=== PATIENT | female | born 1975 | race Caucasian/White ===

== ENCOUNTER 2016-04-10 09:21 | Inpatient (IN) | payer OTHER, MEDICARE ==
[~2016-04-10] VITALS: Ht 165.1 cm; Wt 99.3 kg
[~2016-04-10 09:21] MED LIST: /DILT60TAB PO; /ESOM40CA; ADV500INH INH; ADVAIR; ASPI81TA85 PO; CALCIUM GLUCONATE; CENESTIN; ESTR1TAB PO; LIDO5DIS; LIPI20TA PO; LORTTAB2 PO; MUCI600T34 PO; MULTIVIT; PRED10TA2 PO; PRIL20CA PO; PROV90AE; SING5CHW PO; TOPI100T; TOPI50TA; TRAM50TA2; TYLE325T5 PO; VYTO10TA5; [UNRECOGNIZED DRUG - OTHER] PO
--- NOTE | 2016-04-10 10:24 | REP ---
CT Head without contrast HISTORY: Altered mental status COMPARISON: None There is no intraparenchymal hemorrhage, acute infarct, mass or midline shift. The ventricular system is normal in appearance. There is no extra cerebral collection. There is no fracture. The visualized sinuses are clear. IMPRESSION: There is no intracranial lesion. Signed by Marek Greene MD 04/10/2016 10:15 A
[2016-04-10 10:57] LABS: MEAN CORPUSCULAR HEMOGLOBIN 28.7 pg (27.0-33.0); MEAN CORPUSCULAR HGB CONC 34.3 g/dl (32.0-36.5); MEAN CORPUSCULAR VOLUME 83.5 fl (80.0-96.0); RED CELL DISTRIBUTION WIDTH 12.5 % (11.5-14.5); WHITE BLOOD COUNT 7.6 K/mm3 (4.0-10.0)
[2016-04-10 11:09] LABS: AMPHETAMINES LEVEL URINE NEGATIVE (NEGATIVE); BENZODIAZEPINES URINE NEGATIVE (NEGATIVE); COCAINE METABOLITE URINE NEGATIVE (NEGATIVE); CONTROL LINE INT CTR LINE PRESENT; METHADONE URINE NEGATIVE (NEGATIVE); OPIATES URINE POSITIVE (NEGATIVE); TRICYCLIC ANTIDEPRESS URINE NEGATIVE (NEGATIVE)
[2016-04-10 11:25] LABS: CONTROL LINE HCG INT CTR LINE PRESENT
[2016-04-10 11:39] LABS: ALBUMIN 3.2 GM/DL (3.2-5.2); ALBUMIN/GLOBULIN RATIO 0.91 (1.00-1.93); ALKALINE PHOSPHATASE 105 U/L (45-117); ALT/SGPT 34 U/L (12-78); ANION GAP 12 MEQ/L (8-16); AST/SGOT 17 U/L (15-37); BILIRUBIN,DIRECT 0.1 MG/DL (0.0-0.2); BILIRUBIN,TOTAL 0.5 MG/DL (0.2-1.0); BLOOD UREA NITROGEN 13 MG/DL (7-18); CALCIUM LEVEL 8.3 MG/DL (8.5-10.1); CARBON DIOXIDE LEVEL 27 MEQ/L (21-32); CHLORIDE LEVEL 106 MEQ/L (98-107); CREATININE FOR GFR 0.76 MG/DL (0.55-1.02); GLOMERULAR FILTRATION RATE > 60.0 (>58); GLUCOSE, FASTING 91 MG/DL (70-105); POTASSIUM SERUM 3.9 MEQ/L (3.5-5.1); SODIUM LEVEL 145 MEQ/L (136-145); TOTAL PROTEIN 6.7 GM/DL (6.4-8.2)
--- NOTE | 2016-04-10 13:48 | EDDOCDS ---
Physician Documentation [facility] Name: Renea Regalado Age: 40 yrs Sex: Female : 1975 Arrival Date: 04/10/2016 Time: 09:21 Bed [facility] Private MD: [facility] Disposition: 04/10/16 13:29 Hospitalization ordered by Sanna Campoverde for Inpatient Admission. Preliminary diagnosis is Major depressive disorder, recurrent, mild. - Bed requested for Admit. - Status is Inpatient Admission. mk4 - Condition is Stable. - Problem is an acute exacerbation. - Symptoms are unchanged. Historical: - Allergies: Amitriptyline (Rash); Percocet (Rash); - Home Meds: 1. Advair Diskus 500-50 mcg/dose Inhl dsdv 1 puff 2 times per day (Last dose: 04/09/2016) 2. Albuterol Inhl 3 mL every 4-6 hours prn 3. albuterol sulfate 90 mcg/actuation Inhl HFAA 2 puffs every 4-6 hours prn 4. aspirin 81 mg Oral tab 1 tab once daily (Last dose: 04/09/2016) 5. Flexeril 10 mg Oral tab 1 tab 3 times per day (Last dose: 04/09/2016) 6. Lipitor 80 mg Oral tab 1 tab once daily (Last dose: 04/09/2016) 7. lisinopril 5 mg Oral tab 1 tab once daily (Last dose: 04/09/2016) 8. metformin 500 mg Oral tab 1 tab Daily as needed 9. Mobic 15 mg oral tab 1 tab once daily (Last dose: 04/09/2016) 10. Seroquel 100 mg Oral tab daily stopped taking it yesterday (Last dose: 04/08/2016) 11. Wellbutrin 300 mg Oral 1 tab daily (Last dose: 04/08/2016) 12. Singulair 10 mg Oral tab 1 tab once daily - PMHx: Asthma; Diabetes - NIDDM: controlled; Headaches; Hypercholesterolemia; Hypertension; IBS; - PSHx: Hysterectomy; Cholecystectomy; - Social history: Smoking status: Patient states was never smoker of tobacco. No barriers to communication noted, The patient speaks fluent [place], Speaks appropriately for age. - Family history: Not pertinent. - : The pt / caregiver states he / she is not on anticoagulants. Home medication list is obtained from the patient, family members. - Exposure Risk Screening:: None identified. STRUCTURAL ARCHITECT: 04/10 09:47 LMP N/A - Hysterectomy srm Vital Signs: 09:22 BP 127 / 81; Pulse 84; Resp 18 S; Temp 98.1; Pulse Ox 98% on R/A; Weight 99.34 kg / dd6 219.01 lbs (R); Height 5 ft. 5 in. (165.10 cm) (R); 11:20 BP 164 / 84; Pulse 82; Resp 18; Temp 98; Pulse Ox 97% on R/A; mk4 09:22 Body Mass Index 36.44 (99.34 kg, 165.10 cm) dd6 11:20 pt crying mk4 MDM: 09:56 Consult PFS/PSA/Shift Mgr ordered. sd1 09:56 Consult PFS/PSA/Shift Mgr: Patient's case requires discussion with on-call sd1 Psychiatrist ordered. 09:56 PSA/PFS to call Nursing Construction Driver, to enter patient data on [place] Safe Act if patient sd1 involuntarily admitted or transferred for SI or HI ordered. 09:56 Confirm accurate psychiatric medication list and times of last dosage ordered. sd1 09:56 Detain Pt Until Medically/PFS Cleared ordered. sd1 09:57 Acetaminophen Level Ordered. EDMS 09:57 Basic Metabolic Profile Ordered. EDMS 09:57 Complete Blood Count Ordered. EDMS 09:57 Drug Eval Toxicology ED Only Ordered. EDMS 09:57 Ethyl Alcohol (ethanol) Ordered. EDMS 09:57 HCG,Serum Qualitative Ordered. EDMS 09:57 Liver Profile Ordered. EDMS 09:57 Salicylate Level Ordered. EDMS 09:57 Thyroid Stimulating Hormone Ordered. EDMS 09:58 CT Head Without Contrast Ordered. EDMS 10:48 Financial registration complete. pm4 10:48 Consult PFS/PSA/Shift Mgr complete. mk4 10:48 Consult PFS/PSA/Shift Mgr: Patient's case requires discussion with on-call [facility] Psychiatrist complete. 10:48 PSA/PFS to call Nursing Construction Driver, to enter patient data [place] Safe [place] if patient mk4 involuntarily admitted or transferred for SI or HI complete. 11:18 REGULAR DIET PLASTIC HURTADO+DIET ordered. EDMS 11:20 [facility] Payment Agreement was scanned into [employer] and attached to record. pm4 11:28 Drug Eval Toxicology ED Only Reviewed. sd1 11:28 Complete Blood Count Reviewed. sd1 11:28 HCG,Serum Qualitative Reviewed. sd1 11:28 CT Head Without Contrast Reviewed. sd1 12:14 Acetaminophen Level Reviewed. sd1 12:14 Basic Metabolic Profile Reviewed. sd1 12:14 Liver Profile Reviewed. sd1 12:14 Salicylate Level Reviewed. sd1 12:14 Ethyl Alcohol (ethanol) Reviewed. sd1 12:14 HCG,Serum Qualitative Reviewed. sd1 12:14 Thyroid Stimulating Hormone Reviewed. sd1 13:04 Admit to [facility]: ordered. EDMS 13:04 [facility] Legal paperwork was scanned into [employer] and attached to record. ml4 Signatures: Dispatcher [employer] EDIN Cindy Manrique MD MD sd1 Mayda Dumont, RN RN srm [place] [employer], PSA PSA ml4 María Chin RN RN mk4 Wero Shook, Reg Reg pm4 The chart was reviewed and I authenticate all verbal orders and agree with the evaluation and treatment provided.Attachments: 11:20 [facility] Payment Agreement pm4 MTDD
--- NOTE | 2016-04-10 13:48 | EDDOCDS ---
Nurse's Notes [facility] Name: Renea Regalado Age: 40 yrs Sex: Female : 1975 Arrival Date: 04/10/2016 Time: 09:21 Bed BHU1 Private MD: [facility] Diagnosis: Major depressive disorder, recurrent, mild Presentation: 04/10 09:42 Presenting complaint: Patient states: seen at her counselors today and sent there for [facility] blood work- started taking Seroquel and Wellbutrin a few weeks ago and now she is stuttering and having bad thoughts. pt states she is suicidal. Adult Sepsis Screening: The patient does not have new or worsening altered mentation. Patient's respiratory rate is less than 22. Systolic blood pressure is greater than 100. Patient has a qSOFA score of 0- Negative Sepsis Screen. Suicide/Homicide risk assessment- The patient admits to and/or has been reported to be having suicidal ideations. The patient reports that he/she has not been admitted to an inpatient mental health facility in the last 30 days. The patient reports that he/she does not have a recent or current history of substance abuse. The patient reports that he/she has no prior history of suicide attempt and/or organized plan. The patient reports that he/she has not experienced a significant life altering event in the last 30 days. The patient reports that he/she has adequate social support. Status: Patient is not a tire service technician or dependent. Transition of care: patient was received from [facility] counselor. 09:42 Acuity: EDY Level 3 [facility] 09:42 Method Of Arrival: Walkin/Carried/Asstd [facility] Triage Assessment: 09:47 General: Appears in no apparent distress, Behavior is appropriate for age, cooperative. srm Pain: Denies pain. HIV screening NA for this visit Offered previously. SAP BW BI DEVELOPER: 09:47 LMP N/A - Hysterectomy srm Historical: - Allergies: Amitriptyline (Rash); Percocet (Rash); - Home Meds: 1. Advair Diskus 500-50 mcg/dose Inhl dsdv 1 puff 2 times per day (Last dose: 04/09/2016) 2. Albuterol Inhl 3 mL every 4-6 hours prn 3. albuterol sulfate 90 mcg/actuation Inhl HFAA 2 puffs every 4-6 hours prn 4. aspirin 81 mg Oral tab 1 tab once daily (Last dose: 04/09/2016) 5. Flexeril 10 mg Oral tab 1 tab 3 times per day (Last dose: 04/09/2016) 6. Lipitor 80 mg Oral tab 1 tab once daily (Last dose: 04/09/2016) 7. lisinopril 5 mg Oral tab 1 tab once daily (Last dose: 04/09/2016) 8. metformin 500 mg Oral tab 1 tab Daily as needed 9. Mobic 15 mg oral tab 1 tab once daily (Last dose: 04/09/2016) 10. Seroquel 100 mg Oral tab daily stopped taking it yesterday (Last dose: 04/08/2016) 11. Wellbutrin 300 mg Oral 1 tab daily (Last dose: 04/08/2016) 12. Singulair 10 mg Oral tab 1 tab once daily - PMHx: Asthma; Diabetes - NIDDM: controlled; Headaches; Hypercholesterolemia; Hypertension; IBS; - PSHx: Hysterectomy; Cholecystectomy; - Social history: Smoking status: Patient states was never smoker of tobacco. No barriers to communication noted, The patient speaks fluent Malian, Speaks appropriately for age. - Family history: Not pertinent. - : The pt / caregiver states he / she is not on anticoagulants. Home medication list is obtained from the patient, family members. - Exposure Risk Screening:: None identified. Screenin:00 Screening information is obtained from the patient. Fall risk: No risks identified. mk4 Assistance ADL's: requires no assistance with activities of daily living. Abuse/DV Screen: The patient / caregiver reports he/she is: not in a situation that causes fear, pain or injury. Nutritional screening: On diabetic diet. Advance Directives: Currently, there is no health care proxy. There is no active DNR order. There is no living will. There is no Power of Machine Captain. Advance directive information has not previously been placed in an [facility] medical record. Further advance directive information is declined. home support is adequate. Referral is made to [facility]. Assessment: 10:00 General: Appears distressed, Behavior is crying. Pain: Denies pain. Neurological: Level mk4 of Consciousness is awake, alert. Respiratory: Airway is patent Respiratory effort is even, Respiratory pattern is hyperventilation. Referral is made to [facility]. 11:20 General: Appears in no apparent distress, comfortable, Behavior is anxious, cooperative.mk4 13:40 General: Appears distressed, Behavior is crying. General: Behavior is family member at 4 bedside ,pt tearful states she wantsto go home. Neurological: Level of Consciousness is awake, alert. Mental Health Eval: 11:29 Mental health consult is initiated at 11:00. Status: The patient is not a ml4 tire service technician or dependent. [facility] Behavioral Health: The patient is not an established patient of [facility] Behavioral Health. Referral Information: Evaluation referral is generated by the patient himself / herself. The patient was referred for evaluation because she was her appt with Sarai Mason(PNP) at [facility] and was directed to present to ED for blood work and Head CT. While at appt, pt admitted suffering from command AH to kill self and others due to recent medication increase(Seroquel, 50 mg to 100 mg), along with some side effects(stuttering and memory loss). [facility] Dukes did not contact [facility], pt presented to [facility] with . . Subjective: The patients chief complaint is pt states, "I'm just here for some blood work and a CT scan." Pt reports suffering from command AH to kill herself and others for the past 2 days. Pt claims the voices told her to jump into the ortiz 2 days ago but states, "I walked down to the water, but then turned around because I really didn't want to kill myself." Yesterday, she reports the voices told her to stab herself with a kitchen knife, however admits walking into the kitchen, but was able redirect the voices. In addition to Command AH to kill self, she reports having Command AH to kill others. Pt states, "I saw demons and aliens last night and they told me to go with them and kill people." Pt denies active SI and HI and states, "it's because of my medication change." States she has been on Wellbutrin(300 mg) for the past 3 months and her Seroquel was increased from 50 mg to 100 mg approximately 1 wk ago. Since the medication increase, she reports having memory loss and stuttering, along with command AH to kill self and others. Additionally, pt states, "I accidentally took 2 tablets of Seroquel 2 days ago, instead of one tablet only at night." Pt was directed to stop all medication due to the negative side effects. She is requesting to be discharged from [facility] and is able to contract for pt's safety and reports not leaving pt alone at home. . Delusions are denied. Patient's mood is anxious, hallucinations are Command AH to kill self and others, along with VH. Pt states, "I see aliens and demons at night time." . Mental Health history: depression, sleep disturbance, Mental Health Admissions: Ellie, approximately 30 years ago for suicidal thoughts Current Outpatient Mental Health Services: [facility]- Last seen today. . Current living environment is Family / Home Support: adequate The patient currently lives with his / her spouse, . The patient is . Patient presents to Emergency Department with the following symptoms within the past 2 weeks: agitation, anger, anxiety, depressed mood, auditory hallucinations stated by patient visual hallucinations, stated by patient SI and HI due to command AH. . poor concentration, poor impulse control, sleep disturbance - insomnia. Substance abuse: Pt denies. Mental status exam: Patients appearance is appropriate, Patient's behavior is cooperative, Affect is appropriate. Mood is anxious. Auditory Hallucinations are reported by the patient. Command hallucinations are reported by the patient. Visual Hallucinations are are reported by pt(as described above) . Appetite is normal. Memory is fair. Energy level is normal. Content of thought is normal. Thought process is intact. Cognitive level is oriented to person, place, time and situation Patient's insight is poor. Judgement is poor. Rapport with interviewer is good. Suicidal Ideation is not present. Homicidal ideation is not present. Speech is Stuttering . Disposition: Medically cleared for disposition by Cindy Manrique MD. Narrative: Awaiting psychiatric consult... 12:21 Disposition: Psychiatric Consult is performed by phone with Dr Yohan Montgomery. ml4 12:57 [facility] Admission Criteria: The patient is experiencing suicidal ideation. The patient ml4 requires continuous observation and/or control to protect self, others or property. The patient's care requires a multi-modal treatment plan under close supervision and coordination due to the complexity and severity of the patient's symptoms. The patient requires administration and monitoring of psychoactive medications by skilled medical providers due to the side effects of the psychoactive medications or significant dosage adjustments. Legal Status: Patient's legal status will be Emergency admission: 39. [place] Safe Act: [place] Safe Act is applicable to this patient. The patient poses a risk to self or other and the Nursing Emergency Room Technician has been notified. He/She will enter the patient's data. DSM-V Differential Diagnosis: Major Depressive Disorder unspecified (F33.9). Narrative: Notice of Status and Rights, FAQ, and Bill of Rights was given at bedside. Awaiting: transfer to [facility]. Vital Signs: 09:22 BP 127 / 81; Pulse 84; Resp 18 S; Temp 98.1; Pulse Ox 98% on R/A; Weight 99.34 kg (R); dd6 Height 5 ft. 5 in. (165.10 cm) (R); 11:20 BP 164 / 84; Pulse 82; Resp 18; Temp 98; Pulse Ox 97% on R/A; mk4 09:22 Body Mass Index 36.44 (99.34 kg, 165.10 cm) dd6 11:20 pt crying mk4 Vitals: 09:22 Log In Time: April 10, 2016 at 09:20. dd6 ED Course: 09:22 Patient visited by Micky Champagne PCA. dd6 09:22 [facility] is Private Physician. dd6 09:22 Patient moved to Waiting dd6 09:23 Patient moved to Pre RCE dd6 09:33 Triage Initiated mlb1 09:47 Amita Contreras,RN is Primary Nurse. srm 09:47 Patient moved to [facility] srm 10:00 The patient / caregiver is instructed regarding the plan of care and ED course. mk4 10:07 Patient visited by María Chin RN. mk4 10:16 Cindy Manrique MD is Attending Physician. sd1 10:26 Patient visited by Cindy Manrique MD. sd1 10:27 CT Head Without Contrast Returned. EDMS 10:39 Patient visited by Citlalli May PCA. jlf 10:40 Acetaminophen Level Sent. jlf 10:40 Basic Metabolic Profile Sent. jlf 10:40 Complete Blood Count Sent. jlf 10:40 Drug Eval Toxicology ED Only Sent. jlf 10:40 Ethyl Alcohol (ethanol) Sent. jlf 10:40 HCG,Serum Qualitative Sent. jlf 10:40 Liver Profile Sent. jlf 10:40 Thyroid Stimulating Hormone Sent. jlf 10:40 Salicylate Level Sent. jlf 10:59 Patient visited by Wero Avalos Security Aide. pjf 11:14 Patient visited by Belen Matthews. gr2 11:20 [facility] Payment Agreement was scanned into [employer] and attached to record. pm4 11:40 Patient visited by Belen Matthews. gr2 11:56 Patient visited by Belen Matthews. gr2 12:12 Patient visited by Belen Matthews. gr2 12:39 Patient visited by Belen Matthews. gr2 12:47 Primary Nurse role handed off by Amita Contreras,LLOYD mk4 13:04 E Legal paperwork was scanned into [employer] and attached to record. ml4 13:06 Patient visited by Belen Matthews. gr2 13:29 Sanna Campoverde is Hospitalizing Provider. sd1 13:31 Patient visited by Belen Matthews. gr2 13:42 No IV's were initiated during this patient's visit. No procedures done that require mk4 assistance. Attachments: 13:04 E Legal paperwork ml4 Order Results: Lab Order: Acetaminophen Level; SPEC'M 04/10/16 10:29 Test: ACETAMINOPHEN LEVEL; Value: < 2.0; Range: 10.0-30.0; Abnormal: Below low normal; Units: UG/ML; Status: F Lab Order: Basic Metabolic Profile; SPEC'M 04/10/16 10:29 Test: GLUCOSE, FASTING; Value: 91; Range: 70-105; Units: MG/DL; Status: F Test: BLOOD UREA NITROGEN; Value: 13; Range: 7-18; Units: MG/DL; Status: F Test: CREATININE FOR GFR; Value: 0.76; Range: 0.55-1.02; Units: MG/DL; Status: F Test: SODIUM LEVEL; Range: 136-145; Units: MEQ/L; Status: I Test: POTASSIUM SERUM; Range: 3.5-5.1; Units: MEQ/L; Status: I Test: CHLORIDE LEVEL; Range: 98-107; Units: MEQ/L; Status: I Test: CARBON DIOXIDE LEVEL; Range: 21-32; Units: MEQ/L; Status: I Test: ANION GAP; Range: 8-16; Units: MEQ/L; Status: I Test: CALCIUM LEVEL; Range: 8.5-10.1; Units: MG/DL; Status: I Test: GLOMERULAR FILTRATION RATE; Value: > 60.0; Range: >58; Status: F Test: SODIUM LEVEL; Value: 145; Range: 136-145; Units: MEQ/L; Status: F Test: POTASSIUM SERUM; Value: 3.9; Range: 3.5-5.1; Units: MEQ/L; Status: F Test: CHLORIDE LEVEL; Value: 106; Range: 98-107; Units: MEQ/L; Status: F Test: CARBON DIOXIDE LEVEL; Value: 27; Range: 21-32; Units: MEQ/L; Status: F Test: ANION GAP; Value: 12; Range: 8-16; Units: MEQ/L; Status: F Test: CALCIUM LEVEL; Value: 8.3; Range: 8.5-10.1; Abnormal: Below low normal; Units: MG/DL; Status: F Test Note: ; Units are mL/min/1.73 m2 Chronic Kidney Disease Staging per NKF: Stage I & II GFR >=60 Normal to Mildly Decreased Stage III GFR 30-59 Moderately Decreased Stage IV GFR 15-29 Severely Decreased Stage V GFR <15 Very Little GFR Left ESRD GFR <15 on SCIENTIFIC HELPER Lab Order: Complete Blood Count; SPEC'M 04/10/16 10:29 Test: WHITE BLOOD COUNT; Value: 7.6; Range: 4.0-10.0; Units: K/mm3; Status: F Test: RED BLOOD COUNT; Value: 4.74; Range: 4.00-5.40; Units: M/mm3; Status: F Test: HEMOGLOBIN; Value: 13.6; Range: 12.0-16.0; Units: g/dl; Status: F Test: HEMATOCRIT; Value: 39.6; Range: 36.0-47.0; Units: %; Status: F Test: MEAN CORPUSCULAR VOLUME; Value: 83.5; Range: 80.0-96.0; Units: fl; Status: F Test: MEAN CORPUSCULAR HEMOGLOBIN; Value: 28.7; Range: 27.0-33.0; Units: pg; Status: F Test: MEAN CORPUSCULAR HGB CONC; Value: 34.3; Range: 32.0-36.5; Units: g/dl; Status: F Test: RED CELL DISTRIBUTION WIDTH; Value: 12.5; Range: 11.5-14.5; Units: %; Status: F Test: PLATELET COUNT, AUTOMATED; Value: 287; Range: 150-450; Units: k/mm3; Status: F Lab Order: Drug Eval Toxicology ED Only; SPEC'M 04/10/16 10:29 Test: AMPHETAMINES LEVEL URINE; Value: NEGATIVE; Range: NEGATIVE; Status: F Test: BARBITURATES URINE; Value: NEGATIVE; Range: NEGATIVE; Status: F Test: BENZODIAZEPINES URINE; Value: NEGATIVE; Range: NEGATIVE; Status: F Test: CANNABINOIDS URINE; Value: NEGATIVE; Range: NEGATIVE; Status: F Test: COCAINE METABOLITE URINE; Value: NEGATIVE; Range: NEGATIVE; Status: F Test: METHADONE URINE; Value: NEGATIVE; Range: NEGATIVE; Status: F Test: OPIATES URINE; Value: POSITIVE; Range: NEGATIVE; Abnormal: Above high normal; Status: F Test: TRICYCLIC ANTIDEPRESS URINE; Value: NEGATIVE; Range: NEGATIVE; Status: F Test Note: ; ALL PRESUMPTIVE POSITIVE FINDINGS ARE UNCONFIRMED NORMAL VALUES THRESHOLD IN NG/ML AMPHETAMINES 1000 METHAMPHETAMINES 1000 BARBITURATES 300 BENZODIAZEPINES 300 CANNABINOIDS (THC) 50 COCAINE METABOLITE 300 METHADONE 300 OPIATES 300 PHENCYCLIDINE 25 TRICYCLIC ANTIDEPRESSANTS 1000 RESULTS ARE FOR MEDICAL PURPOSES ONLY. ALL URINE SPECIMENS WILL BE SAVED FOR 3 DAYS. IF CONFIRMATION OF A PRESUMPTIVE POSTIVE SCREEN RESULT IS DESIRED, CALL CHEMISTRY ([phone]) AND REQUEST URINE TO BE SENT TO REFERENCE LAB. FOR A LIST OF CLOSELY RELATED COMPOUNDS PLEASE CALL THE LAB. Lab Order: Ethyl Alcohol (ethanol); SPEC'M 04/10/16 10:29 Test: ETHYL ALCOHOL (ETHANOL); Value: < 0.003; Range: 0.000-0.010; Units: %; Status: F Lab Order: HCG,Serum Qualitative; SPEC'M 04/10/16 10:29 Test: HCG, SERUM QUALITATIVE; Value: NEGATIVE; Range: NEGATIVE; Status: F Lab Order: Liver Profile; SPEC'M 04/10/16 10:29 Test: AST/SGOT; Value: 17; Range: 15-37; Units: U/L; Status: F Test: ALT/SGPT; Value: 34; Range: 12-78; Units: U/L; Status: F Test: ALKALINE PHOSPHATASE; Value: 105; Range: 45-117; Units: U/L; Status: F Test: BILIRUBIN,TOTAL; Value: 0.5; Range: 0.2-1.0; Units: MG/DL; Status: F Test: BILIRUBIN,DIRECT; Value: 0.1; Range: 0.0-0.2; Units: MG/DL; Status: F Test: TOTAL PROTEIN; Value: 6.7; Range: 6.4-8.2; Units: GM/DL; Status: F Test: ALBUMIN; Value: 3.2; Range: 3.2-5.2; Units: GM/DL; Status: F Test: ALBUMIN/GLOBULIN RATIO; Value: 0.91; Range: 1.00-1.93; Abnormal: Below low normal; Status: F Lab Order: Salicylate Level; SPEC'M 04/10/16 10:29 Test: SALICYLATE LEVEL; Value: < 1.7; Range: 5.0-30.0; Abnormal: Below low normal; Units: MG/DL; Status: F Lab Order: Thyroid Stimulating Hormone; SPEC'M 04/10/16 10:29 Test: THYROID STIMULATING HORMONE; Value: 1.740; Range: 0.358-3.740; Units: uIU/ML; Status: F Radiology Order: CT Head Without Contrast Test: CT Head Without Contrast REASON FOR EXAMINATION: altered mental status; CT Head without contrast; ; HISTORY: Altered mental status; ; COMPARISON: None; ; There is no intraparenchymal hemorrhage, acute infarct, mass or midline shift.; The ventricular system is normal in appearance. There is no extra cerebral; collection. There is no fracture. The visualized sinuses are clear.; ; IMPRESSION: There is no intracranial lesion.; ; ; ; ; Signed by; Marek Greene MD 04/10/2016 10:15 A; Outcome: 13:29 Decision to Hospitalize by Provider. sd1 13:42 Discharge Assessment: Patient awake, alert and oriented x 3. No cognitive and/or mk4 functional deficits noted. Patient verbalized understanding of disposition instructions. Patient awake and alert. patient administered narcotics - no. The following High Risk Discharge criteria are identified: None. Discharged to home ambulatory. Condition: good Condition: stable. No special radiology studies were completed. Property sent home with patient. 13:47 Patient left the ED. mk4 Signatures: Dispatcher [employer] EDVT Cindy Manrique MD MD sd1 Mayda Dumont, RN RN [facility] Wero Avalos, Security Aide [facility] Zack Hatfield RN RN mlb1 India Busch, PSA PSA ml4 Micky Champagne, TRAVOGRAPH OPERATOR TRAVOGRAPH OPERATOR dd6 Belen Matthews gr2 María Chin RN RN mk4 Citlalli May, TRAVOGRAPH OPERATOR TRAVOGRAPH OPERATOR jlf Wero Shook, Reg Reg pm4 Corrections: (The following items were deleted from the chart) 09:32 Presenting complaint: Patient states: Chemo last week, not feeling well since mlb1 Friday, body aches, fatigue with sinus pressure [facility] 09:32 Adult Sepsis Screening: The patient does not have new or worsening altered mlb1 mentation. Patient's respiratory rate is less than 22. Systolic blood pressure is greater than 100. Patient has a qSOFA score of 0- Negative Sepsis Screen. [facility] 34 09:32 Suicide/Homicide risk assessment- the patient denies having any suicidal and/or mlb1 homicidal ideations and does not present with any other emotional, behavioral or mental health complaints [facility] 09:32 Status: Patient is not a tire service technician or dependent. b1 [facility] 34 09:32 Transition of care: patient was not received from another setting of care. b1 [facility] 09:32 Acuity: EDY Level 3 mlb1 [facility] 09:32 Method Of Arrival: Walkin/Carried/Asstd mlb1 b1 MTDD
[2016-04-10 13:55] VITALS: BP 132/84
[2016-04-10] MEDS ORDERED: LIPI80TA PO (14:03)
[2016-04-10] MEDS ORDERED: ASPI1TAB PO (14:03)
[2016-04-10] MEDS ORDERED: MOBI15TA PO (14:03)
[2016-04-10] MEDS ORDERED: LISI-542 PO (14:03)
[2016-04-10] MEDS ORDERED: WELLTAB40 PO (14:03)
[2016-04-10] MEDS ORDERED: CYCL10TA PO (14:03)
[2016-04-10] MEDS ORDERED: METF500T PO (14:03)
[2016-04-10] MEDS ORDERED: HYDR1TAB97 PO (14:03)
[2016-04-10] MEDS ORDERED: ALBU83IN INH (14:03)
[2016-04-10] MEDS ORDERED: SING10TA32 PO (14:03)
[2016-04-10] MEDS ORDERED: ALBU17IN INH (14:03)
[2016-04-10] MEDS ORDERED: ESTR1TAB PO (14:04)
[2016-04-10] MEDS ORDERED: OMEP20CA3 PO (14:04)
[2016-04-10] MEDS ORDERED: CETI10TA PO (14:04)
[2016-04-10] MEDS ORDERED: SERO1TAB PO (14:09)
[2016-04-10] MEDS ORDERED: ADV500INH INH (14:09)
[2016-04-10] MEDS ORDERED: ALBUTEROL 90 MCG/ACT 8GM HFA INHALER INH PRN (16:00)
[2016-04-10] MEDS ORDERED: CETIRIZINE (ZyrTEC) 10 MG TAB PO PRN (16:00)
[2016-04-10] MEDS ORDERED: ALBUTEROL SULFATE 2.5 MG/0.5 ML INH NEB SOLN INH PRN (16:00)
[2016-04-10] MEDS ORDERED: MOM 30ML SUSPENSION UDC PO PRN (16:45)
[2016-04-10] MEDS ORDERED: MAALOX 30 ML SUSP *UDC PO PRN (16:45)
[2016-04-10] MEDS ORDERED: traZODone 50 MG TAB PO PRN (16:45)
[2016-04-10] MEDS: metFORMIN (GLUCOPHAGE) 500 MG TAB PO SCH (17:25)
[2016-04-10 18:00] VITALS: BP 134/72
[2016-04-10] MEDS: ADVAIR DISKUS 500/50 INH PWD INH SCH (20:59)
[2016-04-10] MEDS: ACETAMINOPHEN TAB 650MG DOSE (2X325MG) PO PRN (22:17)
[2016-04-11 06:37] VITALS: BP 146/87
[2016-04-11] MEDS: MONTELUKAST 10 MG TAB PO SCH (08:56)
[2016-04-11] MEDS: metFORMIN (GLUCOPHAGE) 500 MG TAB PO SCH (08:56)
[2016-04-11] MEDS: ATORVASTATIN 20 MG TAB PO SCH (08:56)
[2016-04-11] MEDS: ASPIRIN 81 MG ENTERIC TAB PO SCH (08:56)
[2016-04-11] MEDS: ADVAIR DISKUS 500/50 INH PWD INH SCH ×2 (08:56→21:33)
[2016-04-11] MEDS: OMEPRAZOLE 20 MG CAP PO SCH (08:56)
[2016-04-11] MEDS: ESTRADIOL 1 MG TAB PO SCH (08:56)
[2016-04-11] MEDS: LISINOPRIL 5 MG TAB PO SCH (08:57)
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
--- NOTE | 2016-04-11 10:20 | HPEPDOC ---
Medical History and Physical Date of Admission Apr 10, 2016 at 13:55 History and Physical PCP: Ayo JONES ATTENDING: Dr. Terence Gray HPI: 40yoF admitted to [facility] for depressive disorder, being medically examined today. No acute medical complaints today. The patient states she is treated for chronic neck pain and low back pain however this has been controlled. She states she uses Flexeril and low back. She states she has not been using any hydrocodone. Denies any fevers, chills, weakness, fatigue, ALVA, CP, SOB, cough, palpitations, abdominal pain, N/V/D or changes in bowel or bladder habits. PMHx: Depression/anxiety Insomnia Chronic neck pain Chronic low back pain MRI lumbosacral spine 09/18 no disc bulge or herniation. MRI cervical spine 10/17 cervical spondylosis C3-4, 5-6, Disc bulge C4-5. NIDDM Asthma Hypertension IBS Hyperlipidemia Chronic headache Learning disability PSHX: Hysterectomy Cholecystectomy Tubal ligation SOCHX: Resides in: [place] Marital Status: Kids: 1 Employment: Disabled Tobacco use: Denies ETOH: Denies Illicit Drugs: Denies IV Drug Use: Denies Tattoos done unprofessionally: Denies FAMHX: Mother: Alive, CAD, [place] 2, CABG, history of lung cancer Father: Alive, diabetes, blindness Siblings: One brother Alive, well Children: Alive, well Unexpected deaths due to medical reasons: Paternal uncle 2 history of lung cancer. ROS: As noted in HPI, otherwise 11pt ROS of systems reviewed and remarkable only for hysterectomy PE: GEN: 40 yo F, appears stated age. Well-nourished, well developed. No acute distress. Alert and oriented x 3. Pleasant, interactive. HEENT: Normocephalic, atraumatic. Pupils are equal, round, and reactive to light. Extraocular movements are intact. No nystagmus appreciated. Sclera are nonicteric. Conjunctiva without injection. Nose midline. Nasal turbinates without bogginess. EACs both patent BL. TMs both visualized and ventura with good cone of light, no bulging or erythema. No facial asymmetry. Moist mucous membranes. Dentition fair. Pharynx pink and moist, no cobblestoning. Neck supple , trachea midline. No lymphadenopathy or thyromegaly appreciated. CHEST: Regular rate and rhythm, +S1, +S2 LUNGS: Clear to auscultation bilaterally. No wheezes, rales, or rhonchi. Breathing appears symmetric and easy. Patient is speaking in full sentences. No accessory muscle use. ABD: Round, soft, non-tender, non-distended. +Bowel sounds throughout. No rebound or guarding. No costovertebral angle tenderness. EXT: Pulses 2+ bilaterally dorsalis pedis and radial. No lower extremity edema appreciated. SKIN: Gordon, dry, warm. Capillary refill <2sec. No rashes. NEURO: Alert and oriented x 3. Cranial nerves III-XII are intact. No focal deficits appreciated. EKG: Pending. CT head without contrast 04/10/16. No intracranial lesion. A&P: 40yoF admitted to [facility] for depressive disorder 1. Psych. Plan per Psychiatry. Obtain baseline EKG to assure the safety of psychiatric medications as they can prolong the QT interval. 2. Asthma. Continue Singulair 10 mg daily, Advair 500/50 one inhalation twice a day, albuterol 2 puffs every 4 hours as needed, albuterol nebulizer as needed. 3. NIDDM. Continue carbohydrate controlled diet. Metformin 500 mg daily, aspirin 81 mg daily. Fingerstick blood sugar twice a day. 4. Follow up with PCP on discharge. 5. Hyperlipidemia. Continue Lipitor 80 mg daily. 6. IBS. Diet controlled. 7. Hypertension. Continue lisinopril 5 mg daily. 8. Headache. Controlled with Tylenol as needed. 9. Staff member present throughout exam Zahra DESAI. 10. GERD. Continue PPI. 11. Allergic rhinitis. Continue Zyrtec 10 mg daily. 12. Status post hysterectomy/menopausal. Patient remains on hormonal replacement. 13. Chronic neck pain/low back pain/chronic pain. Patient remains on Mobic 15 mg daily as needed, Flexeril 10 mg 3 times a day as needed. Pt states she has not been using Hydrocodone at all, it is not ordered at this time. ISTOP is accessed, Ref # [id number] Last dispensed 03/16/16 #30 tab. Vital Signs Vital Signs Label Value Date Time Patient Temperature 96.6 degrees F 04/11/16 0637 Temperature Source Tympanic 04/11/16 0637 Pulse 88 04/11/16 0637 Respiratory Rate 16 bpm 04/11/16 0637 Blood Pressure Assessment 146/87 (106) 04/11/16 0637 Laboratory Data Labs 24H Laboratory Tests 2 04/10/16 10:29: Acetaminophen Level < 2.0L, Aspartate Amino Transf (AST/SGOT) 17, Alanine Aminotransferase (ALT/SGPT) 34, Alkaline Phosphatase 105, Total Bilirubin 0.5, Direct Bilirubin 0.1, Albumin 3.2, Albumin/Globulin Ratio 0.91L, Anion Gap 12, Calcium Level 8.3L, Ethyl Alcohol Level < 0.003, Glomerular Filtration Rate > 60.0, Human Chorionic Gonadotropin, Qual NEGATIVE, Salicylates Level < 1.7L, Thyroid Stimulating Hormone (TSH) 1.740, Total Protein 6.7, Urine Amphetamine Level NEGATIVE, Urine Benzodiazepines Screen NEGATIVE, Urine Cannabinoids NEGATIVE, Urine Cocaine Metabolite NEGATIVE, Urine Opiates Screen POSITIVEH, Urine Barbiturates, Qualitative NEGATIVE, Urine Methadone Screen NEGATIVE, Urine Tricyclic Antidepressants NEGATIVE 04/11/16 06:21: Bedside Glucose (Misc Panel) 92 CBC/BMP Laboratory Tests 04/10/16 10:29 Red Blood Count 4.74, Mean Corpuscular Volume 83.5, Mean Corpuscular Hemoglobin 28.7, Mean Corpuscular Hemoglobin Concent 34.3, Red Cell Distribution Width 12.5 FSBS Laboratory Tests Test 04/11/16 06:21 Range/Units Bedside Glucose (Misc Panel) 92 70-105 MG/DL Home Medications Scheduled Aspirin (Aspirin 81) 81 Mg Tab 81 MG PO DAILY Atorvastatin Calcium (Lipitor) 80 Mg Tab 80 MG PO DAILY Bupropion HCl (Wellbutrin Xl) 300 Mg Tab 300 MG PO DAILY Estradiol (Estradiol) 1 Mg Tab 1 MG PO DAILY Lisinopril (Lisinopril) 5 Mg Tab 5 MG PO DAILY Meloxicam (Mobic) 15 Mg Tab 15 MG PO DAILY Metformin Hydrochloride (Metformin HCl) 500 Mg Tab 500 MG PO DAILY Montelukast Sodium (Singulair) 10 Mg Tab 10 MG PO DAILY Omeprazole (Omeprazole) 20 Mg Cap 20 MG PO DAILY Quetiapine Fumerate (Seroquel) 100 Mg Tab 100 MG PO DAILY NOT SURE WHERE PATIENT GETTING FILLED Salmeterol/Fluticasone (Advair Diskus 500-50 Mcg/Dose) 28 Puff/Inhaler Aerp 1 PUFF INH BID NOT SURE WHERE PATIENT GETTING FILLED Scheduled PRN Acetaminophen/Hydrocodone (Hydrocodone/Acetaminophen 5-325 mg) 1 Tab Tab 1 TAB PO DAILY PRN PRN SEVERE PAIN (PS 8-10) Albuterol Sulfate (Albuterol Sulfate) 2.5 Mg/3 Ml Nebu 2.5 MG INH Q4H PRN PRN SHORTNESS OF BREATH Albuterol Sulfate (Ventolin Hfa) 200 Puff/8 Gm Aers 2 PUFF INH Q4H PRN PRN SHORTNESS OF BREATH Cetirizine HCl (Cetirizine HCl) 10 Mg Tab 10 MG PO DAILY PRN PRN ALLERGIES Cyclobenzaprine HCl (Cyclobenzaprine HCl) 10 Mg Tab 10 MG PO TID PRN PRN SPASMS Allergies Coded Allergies: Amitriptyline (Verified Allergy, Intermediate, HIVES, 07/13/12) Oxycodone (Unverified Allergy, Unknown, RASH, 04/10/16) Fatemeh Conroy Apr 11, 2016 10:20
[2016-04-11] MEDS ORDERED: MELOXICAM (MOBIC) 7.5 MG TAB PO PRN (10:30)
[2016-04-11] MEDS ORDERED: CYCLOBENZAPRINE 10 MG TAB PO PRN (10:30)
[2016-04-11] MEDS ORDERED: QUEtiapine FUMARATE 50 MG TAB PO PRN (12:45)
[2016-04-11 18:00] VITALS: BP 138/67
[2016-04-11] MEDS: QUEtiapine FUMARATE 50 MG TAB PO SCH (21:33)
[2016-04-11] MEDS: ACETAMINOPHEN TAB 650MG DOSE (2X325MG) PO PRN (22:16)
[2016-04-12 06:40] VITALS: BP 138/63
[2016-04-12] MEDS: ATORVASTATIN 20 MG TAB PO SCH (08:47)
[2016-04-12] MEDS: ADVAIR DISKUS 500/50 INH PWD INH SCH ×2 (08:47→20:52)
[2016-04-12] MEDS: OMEPRAZOLE 20 MG CAP PO SCH (08:47)
[2016-04-12] MEDS: MONTELUKAST 10 MG TAB PO SCH (08:47)
[2016-04-12] MEDS: ESTRADIOL 1 MG TAB PO SCH (08:47)
[2016-04-12] MEDS: LISINOPRIL 5 MG TAB PO SCH (08:47)
[2016-04-12] MEDS: metFORMIN (GLUCOPHAGE) 500 MG TAB PO SCH (08:47)
[2016-04-12] MEDS: ASPIRIN 81 MG ENTERIC TAB PO SCH (08:47)
[2016-04-12] MEDS: ACETAMINOPHEN TAB 650MG DOSE (2X325MG) PO PRN ×2 (11:30→20:53)
--- NOTE | 2016-04-12 14:49 | EDDOCDS ---
Physician Documentation [facility] Name: Renea Regalado Age: 40 yrs Sex: Female : 1975 Arrival Date: 04/10/2016 Time: 09:21 Bed [facility] Private MD: [facility] Disposition: 04/10/16 13:29 Hospitalization ordered by Sanna Campoverde for Inpatient Admission. Preliminary diagnosis is Major depressive disorder, recurrent, mild. - Bed requested for Admit. - Status is Inpatient Admission. mk4 - Condition is Stable. - Problem is an acute exacerbation. - Symptoms are unchanged. Historical: - Allergies: Amitriptyline (Rash); Percocet (Rash); - Home Meds: 1. Advair Diskus 500-50 mcg/dose Inhl dsdv 1 puff 2 times per day (Last dose: 04/09/2016) 2. Albuterol Inhl 3 mL every 4-6 hours prn 3. albuterol sulfate 90 mcg/actuation Inhl HFAA 2 puffs every 4-6 hours prn 4. aspirin 81 mg Oral tab 1 tab once daily (Last dose: 04/09/2016) 5. Flexeril 10 mg Oral tab 1 tab 3 times per day (Last dose: 04/09/2016) 6. Lipitor 80 mg Oral tab 1 tab once daily (Last dose: 04/09/2016) 7. lisinopril 5 mg Oral tab 1 tab once daily (Last dose: 04/09/2016) 8. metformin 500 mg Oral tab 1 tab Daily as needed 9. Mobic 15 mg oral tab 1 tab once daily (Last dose: 04/09/2016) 10. Seroquel 100 mg Oral tab daily stopped taking it yesterday (Last dose: 04/08/2016) 11. Wellbutrin 300 mg Oral 1 tab daily (Last dose: 04/08/2016) 12. Singulair 10 mg Oral tab 1 tab once daily - PMHx: Asthma; Diabetes - NIDDM: controlled; Headaches; Hypercholesterolemia; Hypertension; IBS; - PSHx: Hysterectomy; Cholecystectomy; - Social history: Smoking status: Patient states was never smoker of tobacco. No barriers to communication noted, The patient speaks fluent Dutch, Speaks appropriately for age. - Family history: Not pertinent. - : The pt / caregiver states he / she is not on anticoagulants. Home medication list is obtained from the patient, family members. - Exposure Risk Screening:: None identified. 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 5 in. (165.10 cm) (R); 11:20 BP 164 / 84; Pulse 82; Resp 18; Temp 98; Pulse Ox 97% on R/A; mk4 09:22 Body Mass Index 36.44 (99.34 kg, 165.10 cm) dd6 11:20 pt crying mk4 MDM: 09:56 Consult PFS/PSA/Data Operations Manager ordered. sd1 09:56 Consult PFS/PSA/Data Operations Manager: Patient's case requires discussion with on-call sd1 Psychiatrist ordered. 09:56 PSA/PFS to call Nursing Senior Process Control Tech, to enter patient data on [place] Safe Act if patient sd1 involuntarily admitted or transferred for SI or HI ordered. 09:56 Confirm accurate psychiatric medication list and times of last dosage ordered. sd1 09:56 Detain Pt Until Medically/PFS Cleared ordered. sd1 09:57 Acetaminophen Level Ordered. EDMS 09:57 Basic Metabolic Profile Ordered. EDMS 09:57 Complete Blood Count Ordered. EDMS 09:57 Drug Eval Toxicology ED Only Ordered. EDMS 09:57 Ethyl Alcohol (ethanol) Ordered. EDMS 09:57 HCG,Serum Qualitative Ordered. EDMS 09:57 Liver Profile Ordered. EDMS 09:57 Salicylate Level Ordered. EDMS 09:57 Thyroid Stimulating Hormone Ordered. EDMS 09:58 CT Head Without Contrast Ordered. EDMS 10:48 Financial registration complete. pm4 10:48 Consult PFS/PSA/Data Operations Manager complete. mk4 10:48 Consult PFS/PSA/Data Operations Manager: Patient's case requires discussion with on-call [facility] Psychiatrist complete. 10:48 PSA/PFS to call Nursing Senior Process Control Tech, to enter patient data on [place] Safe [place] if patient mk4 involuntarily admitted or transferred for SI or HI complete. 11:18 REGULAR DIET PLASTIC HURTADO+DIET ordered. EDMS 11:20 [facility] Payment Agreement was scanned into [employer] and attached to record. pm4 11:28 Drug Eval Toxicology ED Only Reviewed. sd1 11:28 Complete Blood Count Reviewed. sd1 11:28 HCG,Serum Qualitative Reviewed. sd1 11:28 CT Head Without Contrast Reviewed. sd1 12:14 Acetaminophen Level Reviewed. sd1 12:14 Basic Metabolic Profile Reviewed. sd1 12:14 Liver Profile Reviewed. sd1 12:14 Salicylate Level Reviewed. sd1 12:14 Ethyl Alcohol (ethanol) Reviewed. sd1 12:14 HCG,Serum Qualitative Reviewed. sd1 12:14 Thyroid Stimulating Hormone Reviewed. sd1 13:04 Admit to [facility]: ordered. EDMS 13:04 [facility] Legal paperwork was scanned into [employer] and attached to record. ml4 Signatures: Dispatcher [employer] EDMT Cindy Manrique MD MD sd1 Mayda Dumont, RN RN srm [place] Busch, PSA PSA ml4 María Chin RN RN mk4 Wero Shook, Reg Reg pm4 The chart was reviewed and I authenticate all verbal orders and agree with the evaluation and treatment provided.Attachments: 11:20 [facility] Payment Agreement pm4 Chart Complete MTDD
--- NOTE | 2016-04-12 14:49 | EDDOCDS ---
Physician Documentation [facility] Name: Renea Regalado Age: 40 yrs Sex: Female : 1975 Arrival Date: 04/10/2016 Time: 09:21 Bed [facility] Private MD: [facility] Disposition: 04/10/16 13:29 Hospitalization ordered by Sanna Campoverde for Inpatient Admission. Preliminary diagnosis is Major depressive disorder, recurrent, mild. - Bed requested for Admit. - Status is Inpatient Admission. mk4 - Condition is Stable. - Problem is an acute exacerbation. - Symptoms are unchanged. Historical: - Allergies: Amitriptyline (Rash); Percocet (Rash); - Home Meds: 1. Advair Diskus 500-50 mcg/dose Inhl dsdv 1 puff 2 times per day (Last dose: 04/09/2016) 2. Albuterol Inhl 3 mL every 4-6 hours prn 3. albuterol sulfate 90 mcg/actuation Inhl HFAA 2 puffs every 4-6 hours prn 4. aspirin 81 mg Oral tab 1 tab once daily (Last dose: 04/09/2016) 5. Flexeril 10 mg Oral tab 1 tab 3 times per day (Last dose: 04/09/2016) 6. Lipitor 80 mg Oral tab 1 tab once daily (Last dose: 04/09/2016) 7. lisinopril 5 mg Oral tab 1 tab once daily (Last dose: 04/09/2016) 8. metformin 500 mg Oral tab 1 tab Daily as needed 9. Mobic 15 mg oral tab 1 tab once daily (Last dose: 04/09/2016) 10. Seroquel 100 mg Oral tab daily stopped taking it yesterday (Last dose: 04/08/2016) 11. Wellbutrin 300 mg Oral 1 tab daily (Last dose: 04/08/2016) 12. Singulair 10 mg Oral tab 1 tab once daily - PMHx: Asthma; Diabetes - NIDDM: controlled; Headaches; Hypercholesterolemia; Hypertension; IBS; - PSHx: Hysterectomy; Cholecystectomy; - Social history: Smoking status: Patient states was never smoker of tobacco. No barriers to communication noted, The patient speaks fluent Latvian, Speaks appropriately for age. - Family history: Not pertinent. - : The pt / caregiver states he / she is not on anticoagulants. Home medication list is obtained from the patient, family members. - Exposure Risk Screening:: None identified. BULLET ASSEMBLY PRESS OPERATOR: 04/10 09:47 LMP N/A - Hysterectomy srm Vital Signs: 09:22 BP 127 / 81; Pulse 84; Resp 18 S; Temp 98.1; Pulse Ox 98% on R/A; Weight 99.34 kg / dd6 219.01 lbs (R); Height 5 ft. 5 in. (165.10 cm) (R); 11:20 BP 164 / 84; Pulse 82; Resp 18; Temp 98; Pulse Ox 97% on R/A; mk4 09:22 Body Mass Index 36.44 (99.34 kg, 165.10 cm) dd6 11:20 pt crying mk4 MDM: 09:56 Consult PFS/PSA/Senior Oracle Applications Developer ordered. sd1 09:56 Consult PFS/PSA/Senior Oracle Applications Developer: Patient's case requires discussion with on-call sd1 Psychiatrist ordered. 09:56 PSA/PFS to call Nursing Ceramic Mold Designer, to enter patient data on [place] Safe Act if patient sd1 involuntarily admitted or transferred for SI or HI ordered. 09:56 Confirm accurate psychiatric medication list and times of last dosage ordered. sd1 09:56 Detain Pt Until Medically/PFS Cleared ordered. sd1 09:57 Acetaminophen Level Ordered. EDMS 09:57 Basic Metabolic Profile Ordered. EDMS 09:57 Complete Blood Count Ordered. EDMS 09:57 Drug Eval Toxicology ED Only Ordered. EDMS 09:57 Ethyl Alcohol (ethanol) Ordered. EDMS 09:57 HCG,Serum Qualitative Ordered. EDMS 09:57 Liver Profile Ordered. EDMS 09:57 Salicylate Level Ordered. EDMS 09:57 Thyroid Stimulating Hormone Ordered. EDMS 09:58 CT Head Without Contrast Ordered. EDMS 10:48 Financial registration complete. pm4 10:48 Consult PFS/PSA/Senior Oracle Applications Developer complete. mk4 10:48 Consult PFS/PSA/Senior Oracle Applications Developer: Patient's case requires discussion with on-call [facility] Psychiatrist complete. 10:48 PSA/PFS to call Nursing Ceramic Mold Designer, to enter patient data on [place] Safe [place] if patient mk4 involuntarily admitted or transferred for SI or HI complete. 11:18 REGULAR DIET PLASTIC HURTADO+DIET ordered. EDMS 11:20 [facility] [place] [facility] Payment Agreement was scanned into [employer] and attached to record. pm4 11:28 Drug Eval Toxicology ED Only Reviewed. sd1 11:28 Complete Blood Count Reviewed. sd1 11:28 HCG,Serum Qualitative Reviewed. sd1 11:28 CT Head Without Contrast Reviewed. sd1 12:14 Acetaminophen Level Reviewed. sd1 12:14 Basic Metabolic Profile Reviewed. sd1 12:14 Liver Profile Reviewed. sd1 12:14 Salicylate Level Reviewed. sd1 12:14 Ethyl Alcohol (ethanol) Reviewed. sd1 12:14 HCG,Serum Qualitative Reviewed. sd1 12:14 Thyroid Stimulating Hormone Reviewed. sd1 13:04 Admit to [facility]: ordered. EDMS 13:04 [facility] Legal paperwork was scanned into [employer] and attached to record. ml4 Signatures: Dispatcher [employer] EDMO Cindy Manrique MD MD sd1 Mayda Dumont, RN RN srm [place] [employer], PSA PSA ml4 María Chin RN RN mk4 Wero Shook, Reg Reg pm4 The chart was reviewed and I authenticate all verbal orders and agree with the evaluation and treatment provided.Attachments: 11:20 [facility] Payment Agreement pm4 Chart Complete MTDD
--- NOTE | 2016-04-12 14:49 | EDDOCDS ---
Nurse's Notes [facility] Name: Renea Regalado Age: 40 yrs Sex: Female : 1975 Arrival Date: 04/10/2016 Time: 09:21 Bed BHU1 Private MD: [facility] Diagnosis: Major depressive disorder, recurrent, mild Presentation: 04/10 09:42 Presenting complaint: Patient states: seen at her counselors today and sent there for [facility] blood work- started taking Seroquel and Wellbutrin a few weeks ago and now she is stuttering and having bad thoughts. pt states she is suicidal. Adult Sepsis Screening: The patient does not have new or worsening altered mentation. Patient's respiratory rate is less than 22. Systolic blood pressure is greater than 100. Patient has a qSOFA score of 0- Negative Sepsis Screen. Suicide/Homicide risk assessment- The patient admits to and/or has been reported to be having suicidal ideations. The patient reports that he/she has not been admitted to an inpatient mental health facility in the last 30 days. The patient reports that he/she does not have a recent or current history of substance abuse. The patient reports that he/she has no prior history of suicide attempt and/or organized plan. The patient reports that he/she has not experienced a significant life altering event in the last 30 days. The patient reports that he/she has adequate social support. Status: Patient is not a vp celebrity services or dependent. Transition of care: patient was received from [facility] counselor. 09:42 Acuity: EDY Level 3 [facility] 09:42 Method Of Arrival: Walkin/Carried/Asstd [facility] Triage Assessment: 09:47 General: Appears in no apparent distress, Behavior is appropriate for age, cooperative. srm Pain: Denies pain. HIV screening NA for this visit Offered previously. SUPERVISOR SCREEN MAKING: 09:47 LMP N/A - Hysterectomy srm Historical: - Allergies: Amitriptyline (Rash); Percocet (Rash); - Home Meds: 1. Advair Diskus 500-50 mcg/dose Inhl dsdv 1 puff 2 times per day (Last dose: 04/09/2016) 2. Albuterol Inhl 3 mL every 4-6 hours prn 3. albuterol sulfate 90 mcg/actuation Inhl HFAA 2 puffs every 4-6 hours prn 4. aspirin 81 mg Oral tab 1 tab once daily (Last dose: 04/09/2016) 5. Flexeril 10 mg Oral tab 1 tab 3 times per day (Last dose: 04/09/2016) 6. Lipitor 80 mg Oral tab 1 tab once daily (Last dose: 04/09/2016) 7. lisinopril 5 mg Oral tab 1 tab once daily (Last dose: 04/09/2016) 8. metformin 500 mg Oral tab 1 tab Daily as needed 9. Mobic 15 mg oral tab 1 tab once daily (Last dose: 04/09/2016) 10. Seroquel 100 mg Oral tab daily stopped taking it yesterday (Last dose: 04/08/2016) 11. Wellbutrin 300 mg Oral 1 tab daily (Last dose: 04/08/2016) 12. Singulair 10 mg Oral tab 1 tab once daily - PMHx: Asthma; Diabetes - NIDDM: controlled; Headaches; Hypercholesterolemia; Hypertension; IBS; - PSHx: Hysterectomy; Cholecystectomy; - Social history: Smoking status: Patient states was never smoker of tobacco. No barriers to communication noted, The patient speaks fluent Filipino, Speaks appropriately for age. - Family history: Not pertinent. - : The pt / caregiver states he / she is not on anticoagulants. Home medication list is obtained from the patient, family members. - Exposure Risk Screening:: None identified. Screenin:00 Screening information is obtained from the patient. Fall risk: No risks identified. mk4 Assistance ADL's: requires no assistance with activities of daily living. Abuse/DV Screen: The patient / caregiver reports he/she is: not in a situation that causes fear, pain or injury. Nutritional screening: On diabetic diet. Advance Directives: Currently, there is no health care proxy. There is no active DNR order. There is no living will. There is no Power of Regrinder Operator. Advance directive information has not previously been placed in an [facility] medical record. Further advance directive information is declined. home support is adequate. Referral is made to [facility]. Assessment: 10:00 General: Appears distressed, Behavior is crying. Pain: Denies pain. Neurological: Level mk4 of Consciousness is awake, alert. Respiratory: Airway is patent Respiratory effort is even, Respiratory pattern is hyperventilation. Referral is made to [facility]. 11:20 General: Appears in no apparent distress, comfortable, Behavior is anxious, cooperative.mk4 13:40 General: Appears distressed, Behavior is crying. General: Behavior is family member at 4 bedside ,pt tearful states she wantsto go home. Neurological: Level of Consciousness is awake, alert. Mental Health Eval: 11:29 Mental health consult is initiated at 11:00. Status: The patient is not a ml4 vp celebrity services or dependent. [facility] Behavioral Health: The patient is not an established patient of [facility] Behavioral Health. Referral Information: Evaluation referral is generated by the patient himself / herself. The patient was referred for evaluation because she was her appt with Sarai Mason(PNP) at [facility] and was directed to present to ED for blood work and Head CT. While at appt, pt admitted suffering from command AH to kill self and others due to recent medication increase(Seroquel, 50 mg to 100 mg), along with some side effects(stuttering and memory loss). [facility]ID[facility] Dukes did not contact [facility], pt presented to [facility] with . . Subjective: The patients chief complaint is pt states, "I'm just here for some blood work and a CT scan." Pt reports suffering from command AH to kill herself and others for the past 2 days. Pt claims the voices told her to jump into the ortiz 2 days ago but states, "I walked down to the water, but then turned around because I really didn't want to kill myself." Yesterday, she reports the voices told her to stab herself with a kitchen knife, however admits walking into the kitchen, but was able redirect the voices. In addition to Command AH to kill self, she reports having Command AH to kill others. Pt states, "I saw demons and aliens last night and they told me to go with them and kill people." Pt denies active SI and HI and states, "it's because of my medication change." States she has been on Wellbutrin(300 mg) for the past 3 months and her Seroquel was increased from 50 mg to 100 mg approximately 1 wk ago. Since the medication increase, she reports having memory loss and stuttering, along with command AH to kill self and others. Additionally, pt states, "I accidentally took 2 tablets of Seroquel 2 days ago, instead of one tablet only at night." Pt was directed to stop all medication due to the negative side effects. She is requesting to be discharged from [facility] and is able to contract for pt's safety and reports not leaving pt alone at home. . Delusions are denied. Patient's mood is anxious, hallucinations are Command AH to kill self and others, along with VH. Pt states, "I see aliens and demons at night time." . Mental Health history: depression, sleep disturbance, Mental Health Admissions: Ellie, approximately 30 years ago for suicidal thoughts Current Outpatient Mental Health Services: [facility]- Last seen today. . Current living environment is Family / Home Support: adequate The patient currently lives with his / her spouse, . The patient is . Patient presents to Emergency Department with the following symptoms within the past 2 weeks: agitation, anger, anxiety, depressed mood, auditory hallucinations stated by patient visual hallucinations, stated by patient SI and HI due to command AH. . poor concentration, poor impulse control, sleep disturbance - insomnia. Substance abuse: Pt denies. Mental status exam: Patients appearance is appropriate, Patient's behavior is cooperative, Affect is appropriate. Mood is anxious. Auditory Hallucinations are reported by the patient. Command hallucinations are reported by the patient. Visual Hallucinations are are reported by pt(as described above) . Appetite is normal. Memory is fair. Energy level is normal. Content of thought is normal. Thought process is intact. Cognitive level is oriented to person, place, time and situation Patient's insight is poor. Judgement is poor. Rapport with interviewer is good. Suicidal Ideation is not present. Homicidal ideation is not present. Speech is Stuttering . Disposition: Medically cleared for disposition by Cindy Manrique MD. Narrative: Awaiting psychiatric consult... 12:21 Disposition: Psychiatric Consult is performed by phone with Dr Yohan Montgomery. ml4 12:57 [facility] Admission Criteria: The patient is experiencing suicidal ideation. The patient ml4 requires continuous observation and/or control to protect self, others or property. The patient's care requires a multi-modal treatment plan under close supervision and coordination due to the complexity and severity of the patient's symptoms. The patient requires administration and monitoring of psychoactive medications by skilled medical providers due to the side effects of the psychoactive medications or significant dosage adjustments. Legal Status: Patient's legal status will be Emergency admission: 39. [place] Safe Act: [place] Safe Act is applicable to this patient. The patient poses a risk to self or other and the Nursing Field Crop Farm Worker has been notified. He/She will enter the patient's data. DSM-V Differential Diagnosis: Major Depressive Disorder unspecified (F33.9). Narrative: Notice of Status and Rights, FAQ, and Bill of Rights was given at bedside. Awaiting: transfer to [facility]. 13:58 Insurance Pre-Certification: approved by: Dalia C \\T\\ [facility]. Pt is approved for 5 ml4 days(04/10-04/14) with review due on 04/15/16. Auth # [id number] . Vital Signs: 09:22 BP 127 / 81; Pulse 84; Resp 18 S; Temp 98.1; Pulse Ox 98% on R/A; Weight 99.34 kg (R); dd6 Height 5 ft. 5 in. (165.10 cm) (R); 11:20 BP 164 / 84; Pulse 82; Resp 18; Temp 98; Pulse Ox 97% on R/A; mk4 09:22 Body Mass Index 36.44 (99.34 kg, 165.10 cm) dd6 11:20 pt crying mk4 Vitals: 09:22 Log In Time: April 10, 2016 at 09:20. dd6 ED Course: 09:22 Patient visited by Micky Champagne PCA. dd6 09:22 [facility] is Private Physician. dd6 09:22 Patient moved to Waiting dd6 09:23 Patient moved to Pre RCE dd6 09:33 Triage Initiated mlb1 09:47 Amita Contreras,LLOYD is Primary Nurse. srm 09:47 Patient moved to [facility] srm 10:00 The patient / caregiver is instructed regarding the plan of care and ED course. mk4 10:07 Patient visited by María Chin RN. mk4 10:16 Cindy Manrique MD is Attending Physician. sd1 10:26 Patient visited by Cindy Manrique MD. sd1 10:27 CT Head Without Contrast Returned. EDMS 10:39 Patient visited by Citlalli May PCA. jlf 10:40 Acetaminophen Level Sent. jlf 10:40 Basic Metabolic Profile Sent. jlf 10:40 Complete Blood Count Sent. jlf 10:40 Drug Eval Toxicology ED Only Sent. jlf 10:40 Ethyl Alcohol (ethanol) Sent. jlf 10:40 HCG,Serum Qualitative Sent. jlf 10:40 Liver Profile Sent. jlf 10:40 Thyroid Stimulating Hormone Sent. jlf 10:40 Salicylate Level Sent. jlf 10:59 Patient visited by Wero Avalos Security Aide. pjf 11:14 Patient visited by Belen Matthews. gr2 11:20 [facility] Payment Agreement was scanned into [employer] and attached to record. pm4 11:40 Patient visited by Belen Matthews. gr2 11:56 Patient visited by Belen Matthews. gr2 12:12 Patient visited by Belen Matthews. gr2 12:39 Patient visited by Belen Matthews. gr2 12:47 Primary Nurse role handed off by Amita Contreras RN mk4 13:04 E Legal paperwork was scanned into [employer] and attached to record. ml4 13:06 Patient visited by Belen Matthews. gr2 13:29 Sanna Campoverde is Hospitalizing Provider. sd1 13:31 Patient visited by Belen Matthews. gr2 13:42 No IV's were initiated during this patient's visit. No procedures done that require mk4 assistance. Attachments: 13:04 E Legal paperwork ml4 Order Results: Lab Order: Acetaminophen Level; SPEC'M 04/10/16 10:29 Test: ACETAMINOPHEN LEVEL; Value: < 2.0; Range: 10.0-30.0; Abnormal: Below low normal; Units: UG/ML; Status: F Lab Order: Basic Metabolic Profile; SPEC'M 04/10/16 10:29 Test: GLUCOSE, FASTING; Value: 91; Range: 70-105; Units: MG/DL; Status: F Test: BLOOD UREA NITROGEN; Value: 13; Range: 7-18; Units: MG/DL; Status: F Test: CREATININE FOR GFR; Value: 0.76; Range: 0.55-1.02; Units: MG/DL; Status: F Test: SODIUM LEVEL; Range: 136-145; Units: MEQ/L; Status: I Test: POTASSIUM SERUM; Range: 3.5-5.1; Units: MEQ/L; Status: I Test: CHLORIDE LEVEL; Range: 98-107; Units: MEQ/L; Status: I Test: CARBON DIOXIDE LEVEL; Range: 21-32; Units: MEQ/L; Status: I Test: ANION GAP; Range: 8-16; Units: MEQ/L; Status: I Test: CALCIUM LEVEL; Range: 8.5-10.1; Units: MG/DL; Status: I Test: GLOMERULAR FILTRATION RATE; Value: > 60.0; Range: >58; Status: F Test: SODIUM LEVEL; Value: 145; Range: 136-145; Units: MEQ/L; Status: F Test: POTASSIUM SERUM; Value: 3.9; Range: 3.5-5.1; Units: MEQ/L; Status: F Test: CHLORIDE LEVEL; Value: 106; Range: 98-107; Units: MEQ/L; Status: F Test: CARBON DIOXIDE LEVEL; Value: 27; Range: 21-32; Units: MEQ/L; Status: F Test: ANION GAP; Value: 12; Range: 8-16; Units: MEQ/L; Status: F Test: CALCIUM LEVEL; Value: 8.3; Range: 8.5-10.1; Abnormal: Below low normal; Units: MG/DL; Status: F Test Note: ; Units are mL/min/1.73 m2 Chronic Kidney Disease Staging per NKF: Stage I & II GFR >=60 Normal to Mildly Decreased Stage III GFR 30-59 Moderately Decreased Stage IV GFR 15-29 Severely Decreased Stage V GFR <15 Very Little GFR Left ESRD GFR <15 on TOW CAR DRIVER Lab Order: Complete Blood Count; SPEC'M 04/10/16 10:29 Test: WHITE BLOOD COUNT; Value: 7.6; Range: 4.0-10.0; Units: K/mm3; Status: F Test: RED BLOOD COUNT; Value: 4.74; Range: 4.00-5.40; Units: M/mm3; Status: F Test: HEMOGLOBIN; Value: 13.6; Range: 12.0-16.0; Units: g/dl; Status: F Test: HEMATOCRIT; Value: 39.6; Range: 36.0-47.0; Units: %; Status: F Test: MEAN CORPUSCULAR VOLUME; Value: 83.5; Range: 80.0-96.0; Units: fl; Status: F Test: MEAN CORPUSCULAR HEMOGLOBIN; Value: 28.7; Range: 27.0-33.0; Units: pg; Status: F Test: MEAN CORPUSCULAR HGB CONC; Value: 34.3; Range: 32.0-36.5; Units: g/dl; Status: F Test: RED CELL DISTRIBUTION WIDTH; Value: 12.5; Range: 11.5-14.5; Units: %; Status: F Test: PLATELET COUNT, AUTOMATED; Value: 287; Range: 150-450; Units: k/mm3; Status: F Lab Order: Drug Eval Toxicology ED Only; SPEC'M 04/10/16 10:29 Test: AMPHETAMINES LEVEL URINE; Value: NEGATIVE; Range: NEGATIVE; Status: F Test: BARBITURATES URINE; Value: NEGATIVE; Range: NEGATIVE; Status: F Test: BENZODIAZEPINES URINE; Value: NEGATIVE; Range: NEGATIVE; Status: F Test: CANNABINOIDS URINE; Value: NEGATIVE; Range: NEGATIVE; Status: F Test: COCAINE METABOLITE URINE; Value: NEGATIVE; Range: NEGATIVE; Status: F Test: METHADONE URINE; Value: NEGATIVE; Range: NEGATIVE; Status: F Test: OPIATES URINE; Value: POSITIVE; Range: NEGATIVE; Abnormal: Above high normal; Status: F Test: TRICYCLIC ANTIDEPRESS URINE; Value: NEGATIVE; Range: NEGATIVE; Status: F Test Note: ; ALL PRESUMPTIVE POSITIVE FINDINGS ARE UNCONFIRMED NORMAL VALUES THRESHOLD IN NG/ML AMPHETAMINES 1000 METHAMPHETAMINES 1000 BARBITURATES 300 BENZODIAZEPINES 300 CANNABINOIDS (THC) 50 COCAINE METABOLITE 300 METHADONE 300 OPIATES 300 PHENCYCLIDINE 25 TRICYCLIC ANTIDEPRESSANTS 1000 RESULTS ARE FOR MEDICAL PURPOSES ONLY. ALL URINE SPECIMENS WILL BE SAVED FOR 3 DAYS. IF CONFIRMATION OF A PRESUMPTIVE POSTIVE SCREEN RESULT IS DESIRED, CALL CHEMISTRY ([phone]) AND REQUEST URINE TO BE SENT TO REFERENCE LAB. FOR A LIST OF CLOSELY RELATED COMPOUNDS PLEASE CALL THE LAB. Lab Order: Ethyl Alcohol (ethanol); SPEC'M 04/10/16 10:29 Test: ETHYL ALCOHOL (ETHANOL); Value: < 0.003; Range: 0.000-0.010; Units: %; Status: F Lab Order: HCG,Serum Qualitative; SPEC'M 04/10/16 10:29 Test: HCG, SERUM QUALITATIVE; Value: NEGATIVE; Range: NEGATIVE; Status: F Lab Order: Liver Profile; SPECM 04/10/16 10:29 Test: AST/SGOT; Value: 17; Range: 15-37; Units: U/L; Status: F Test: ALT/SGPT; Value: 34; Range: 12-78; Units: U/L; Status: F Test: ALKALINE PHOSPHATASE; Value: 105; Range: 45-117; Units: U/L; Status: F Test: BILIRUBIN,TOTAL; Value: 0.5; Range: 0.2-1.0; Units: MG/DL; Status: F Test: BILIRUBIN,DIRECT; Value: 0.1; Range: 0.0-0.2; Units: MG/DL; Status: F Test: TOTAL PROTEIN; Value: 6.7; Range: 6.4-8.2; Units: GM/DL; Status: F Test: ALBUMIN; Value: 3.2; Range: 3.2-5.2; Units: GM/DL; Status: F Test: ALBUMIN/GLOBULIN RATIO; Value: 0.91; Range: 1.00-1.93; Abnormal: Below low normal; Status: F Lab Order: Salicylate Level; SPEC04/10/16 10:29 Test: SALICYLATE LEVEL; Value: < 1.7; Range: 5.0-30.0; Abnormal: Below low normal; Units: MG/DL; Status: F Lab Order: Thyroid Stimulating Hormone; SPEC'M 04/10/16 10:29 Test: THYROID STIMULATING HORMONE; Value: 1.740; Range: 0.358-3.740; Units: uIU/ML; Status: F Radiology Order: CT Head Without Contrast Test: CT Head Without Contrast REASON FOR EXAMINATION: altered mental status; CT Head without contrast; ; HISTORY: Altered mental status; ; COMPARISON: None; ; There is no intraparenchymal hemorrhage, acute infarct, mass or midline shift.; The ventricular system is normal in appearance. There is no extra cerebral; collection. There is no fracture. The visualized sinuses are clear.; ; IMPRESSION: There is no intracranial lesion.; ; ; ; ; Signed by; Marek Greene MD 04/10/2016 10:15 A; Outcome: 13:29 Decision to Hospitalize by Provider. sd1 13:42 Discharge Assessment: Patient awake, alert and oriented x 3. No cognitive and/or mk4 functional deficits noted. Patient verbalized understanding of disposition instructions. Patient awake and alert. patient administered narcotics - no. The following High Risk Discharge criteria are identified: None. Discharged to home ambulatory. Condition: good Condition: stable. No special radiology studies were completed. Property sent home with patient. 13:47 Patient left the ED. mk4 Signatures: Dispatcher [employer] EDMS Cindy Manrique MD MD sd1 Mayda Dumont, RN RN [facility] Wero Avalos, Security Aide FlorencepjZack Hurd RN RN mlb1 nIdia Busch, PSA PSA ml4 Micky Champagne, SIDE STITCHER SIDE STITCHER dd6 Belen Matthews gr2 María Chin RN RN mk4 Citlalli May, SIDE STITCHER SIDE STITCHER jlf Wero Shook, Reg Reg pm4 Corrections: (The following items were deleted from the chart) 34 09:32 Presenting complaint: Patient states: Chemo last week, not feeling well since mlb1 Friday, body aches, fatigue with sinus pressure b1 34 09:32 Adult Sepsis Screening: The patient does not have new or worsening altered mlb1 mentation. Patient's respiratory rate is less than 22. Systolic blood pressure is greater than 100. Patient has a qSOFA score of 0- Negative Sepsis Screen. [facility] 34 09:32 Suicide/Homicide risk assessment- the patient denies having any suicidal and/or mlb1 homicidal ideations and does not present with any other emotional, behavioral or mental health complaints mlb1 34 09:32 Status: Patient is not a vp celebrity services or dependent. [place] [id number] 34 09:32 Transition of care: patient was not received from another setting of care. [place] [id number] 09:32 Acuity: EDY Level 3 b1 b1 34 09:32 Method Of Arrival: Walkin/Carried/Asstd mlb1 mlb1 Chart Complete MTDD
[2016-04-12 18:25] VITALS: BP 144/71
[2016-04-12] MEDS: QUEtiapine FUMARATE 50 MG TAB PO SCH (20:52)
--- NOTE | 2016-04-12 21:59 | IPNPDOC ---
[facility] Progress Note Progress Note DATE: 04/12/16 HISTORY: Patient states this admission came after being told by her nurse practitioner to come to the hospital. Patient feels her meds were not working and were not reacting well with her other meds. Patient states she was using bupropion 150 mg which was increased to 300 mg about 2 weeks ago. Pt. was also using Seroquel 50-100 mg, as needed for sleep. Patient states she restarted her Seroquel 2 weeks ago at 50 mg would only use 100 mg twice in that timeframe. Patient states she was increasingly hernandez as she was not sleeping. Patient states she started hearing voices on April 07; had visual hallucinations of demons or alien on April 09, which was very scary for her. Patient then changes her story to stay that the demon or alien was a part of a nightmare; was not a visual hallucination. Patient goes on to say in her dream that the demon had a red face, pointy fingers, reaper's cape. Patient states this dream she only had once, but it was very frightening for her. Patient was also concerned as she started stuttering and not remembering people or familiar things on April 08. Patient feels she has been very hernandez. Pt. states "I can bite my 's head off when he says anything ". Patient does not feel there were any other contributing factors to this admission other than a problem with her meds. Patient denies any altercations, current stressors, deaths or relationship issues. Patient is vehement that she does not want her mother to have any information about this admission. See current med list below. Not apparent to this copywriter if patient has been compliant with meds. Last Rx for Seroquel was retrieved in March. Patient states she hadn't used since December. Patient states she restarted Seroquel 1 week ago. Patient states bupropion was increased 2 weeks ago. Patient states 2 weeks ago is when she started feeling different. VITAL SIGNS: 97.5 84 20 138/63. NEW TEST RESULTS: NA. MENTAL STATUS EXAMINATION: Patient is a 40 year old obese female, who is pleasant and cooperative. Pt. is meeting with this provider and her as she requested, is present. Patient is currently wearing her own shirt and hospital scrubs for pants. Speech: Patient's speech is coherent and spontaneous , non-pressured. Thought processes: Clear, somewhat goal directed. Rate of thoughts are appropriate. Thought content: Logical. Abstract reasoning: Intact. Abnormal or psychotic thoughts: Pt. denies delusions, obsessions, homicidal or suicidal ideation, any hallucination activity. Patient states she is feeling better each day. Pt. feels this is due to better quality sleep and good effect of meds. Judgment: Patient has fair to good judgment. Insight: Fair. Orientation: Patient is oriented to time, place, person and surroundings. Recent and remote memory: Patient feels memory has improved since admission. Attention span and concentration: Good. Language: Normal, understandable. Fund of knowledge: Adequate. Mood: Neutral. Affect: Appropriate. DIAGNOSES: Sleep disorder, unspecified mood disorder, R/O psychotic disorder. ASSESSMENT: Pt. is feeling better each day and states she is feeling "happier". Pt. is getting better quality and duration of sleep, slept soundly last night from 1030 pm until 6 am. Pt. is happy to have at this meeting. MANAGEMENT PLAN: Pt. to continue meds as discussed and ordered, Seroquel 50 mg, 1-2 tabs po q hs for hallucinations/sleep. Continue to encourage patient to be medication compliant. Maintain safety precautions. Continue to encourage patient to attend unit groups and programming to improve coping strategies. Vital Signs Vital Sign - Last 24 Hours 04/12/16 04/12/16 04/12/16 06:40 08:47 18:25 Temp 97.5 97.0 Pulse 84 102 Resp 20 16 B/P 138/63 134/79 144/71 Laboratory Data 24H Labs Laboratory Tests 2 04/12/16 08:51: Bedside Glucose (Misc Panel) 165H 04/12/16 16:52: Bedside Glucose (Misc Panel) 116H Current Medications Current Medications Acetaminophen (Tylenol) 650 mg Q6HP PRN PO HEADACHE or DISCOMFORT Last administered on 04/12/16t 20:53; Start 04/10/16 at 16:45; Stop 05/10/16 at 16:44 Al Hydrox/Mg Hydrox/Simethicone (Mylanta) 30 ml Q4HP PRN PO HEARTBURN/ INDIGESTION; Start 04/10/16 at 16:45; Stop 05/10/16 at 16:44 Albuterol Sulfate (Proventil Neb) 2.5 mg Q4H PRN INH SHORTNESS OF BREATH; Start 04/10/16 at 16:00; Stop 05/10/16 at 15:59 Albuterol Sulfate (Proventil, Ventolin Hfa) 2 puff Q4H PRN INH SHORTNESS OF BREATH; Start 04/10/16 at 16:00; Stop 05/10/16 at 15:59 Aspirin (Ecotrin) 81 mg DAILY PO Last administered on 04/12/16 08:47; Start 04/11/16 at 09:00; Stop 05/11/16 at 08:59 Atorvastatin Calcium (Lipitor) 80 mg DAILY PO Last administered on 04/12/16 08: 47; Start 04/11/16 at 09:00; Stop 05/11/16 at 08:59 Cetirizine HCl (ZyrTEC) 10 mg DAILY PRN PO ALLERGIES; Start 04/10/16 at 16:00; Stop 05/10/16 at 15:59 Cyclobenzaprine HCl (Flexeril) 10 mg TID PRN PO SPASMS; Start 04/11/16 at 10:30 ; Stop 05/11/16 at 10:29 Estradiol (Estrace) 1 mg DAILY PO Last administered on 04/12/16 08:47; Start at 09:00; Stop 05/11/16 at 08:59 Home Med (Med Rec Complete!) ASDIRECTED XX ; Start 04/10/16 at 14:15; Stop at 14:15; Status DC Lisinopril (Prinivil) 5 mg DAILY PO Last administered on 04/12/16 08:47; Start 04/11/16 at 09:00; Stop 05/11/16 at 08:59 Magnesium Hydroxide (Milk Of Magnesia) 30 ml DAILYPRN PRN PO CONSTIPATION; Start 04/10/16 at 16:45; Stop 05/10/16 at 16:44 Meloxicam (Mobic) 15 mg DAILY PRN PO PAIN; Start 04/11/16 at 10:30; Stop at 10:29 Metformin HCl (Glucophage) 500 mg DAILY@08 PO Last administered on 04/12/16 08: 47; Start 04/10/16 at 08:00; Stop 05/10/16 at 07:59 Montelukast Sodium (Singulair) 10 mg DAILY PO Last administered on 04/12/16 08: 47; Start 04/11/16 at 09:00; Stop 05/11/16 at 08:59 Omeprazole (PriLOSEC) 20 mg DAILY PO Last administered on 04/12/16 08:47; Start 04/11/16 at 09:00; Stop 05/11/16 at 08:59 Quetiapine Fumarate (SEROquel) 50 mg QHS PO Last administered on 04/12/16 20:52 ; Start 04/11/16 at 21:00; Stop 05/11/16 at 20:59 Quetiapine Fumarate (SEROquel) 50 mg QHS PRN PO HALLUCINATIONS/SLEEP; Start 04/11/16 at 12:45; Stop 05/11/16 at 12:44 Salmeterol Xinafoate/ Fluticasone (Advair Diskus 500/50) 1 puff BID INH Last administered on 04/12/16 20:52; Start 04/10/16 at 21:00; Stop 05/10/16 at 20:59 Trazodone HCl (Desyrel) 50 mg QHSP PRN PO INSOMNIA Last administered on 20:59; Start 04/10/16 at 16:45; Stop 04/11/16 at 12:57; Status DC Allergies Coded Allergies: Amitriptyline (Verified Allergy, Intermediate, HIVES, 07/13/12) Oxycodone (Unverified Allergy, Unknown, RASH, 04/10/16) BARB MONROY NP Apr 12, 2016 21:59 ARTURO DOMINIQUE MD Apr 14, 2016 11:25
[2016-04-13 06:49] VITALS: BP 111/59
[2016-04-13] MEDS: metFORMIN (GLUCOPHAGE) 500 MG TAB PO SCH (07:16)
[2016-04-13] MEDS: ASPIRIN 81 MG ENTERIC TAB PO SCH (08:37)
[2016-04-13] MEDS: MONTELUKAST 10 MG TAB PO SCH (08:37)
[2016-04-13] MEDS: ADVAIR DISKUS 500/50 INH PWD INH SCH ×2 (08:37→20:59)
[2016-04-13] MEDS: OMEPRAZOLE 20 MG CAP PO SCH (08:37)
[2016-04-13] MEDS: ESTRADIOL 1 MG TAB PO SCH (08:38)
[2016-04-13] MEDS: LISINOPRIL 5 MG TAB PO SCH (08:38)
[2016-04-13] MEDS: ATORVASTATIN 20 MG TAB PO SCH (08:38)
[2016-04-13] MEDS: ACETAMINOPHEN TAB 650MG DOSE (2X325MG) PO PRN ×2 (14:54→21:00)
[2016-04-13 18:00] VITALS: BP 140/75
[2016-04-13] MEDS: QUEtiapine FUMARATE 50 MG TAB PO SCH (20:59)
[2016-04-13] MEDS: NITROFURANTOIN (MACROBID) 100 MG CAP PO SCH (23:56)
--- NOTE | 2016-04-14 01:02 | IPN ---
DATE OF SERVICE: 04/13/2016 TREATMENT: Ms. Baez is seen today and her treatment reviewed. She is on her fourth day of inpatient psychiatric hospitalization. She was admitted due to reporting auditory command hallucinations telling her to jump into a river and drown herself. She says that the problem started after her medication, quetiapine, was increased in combination with another medication, Wellbutrin, and that she began to experience unpleasant side effects including stuttering. She currently is being prescribed 50 mg quetiapine orally at bedtime and she is provided with individual, group and activity therapies. She reports that she is doing progressively better on the current treatment and that she sees it as a good decision coming to the hospital as she thinks that her problems are being adequately treated. She denies any current medication side effects and says she no longer has been stuttering and no longer experiencing intense thoughts of killing herself. OBSERVATION: Vital signs: Blood pressure 111/59, pulse 89, respirations 16, and temperature 96.5. She is observed to be calm, cooperative, adequately groomed and appropriately dressed. Her speech is fluent and coherent. Thought process is logical. No evidence of delusions and she denies any form of hallucination and does not appear to be responding to internal stimuli. She describes her mood as okay. Affect is appropriate. No evidence of EPS or TD. PLAN: Patient will be continued on the current treatment and will be reassessed. If stable in the next 24 hours, she will be scheduled for discharge with appropriate followup arrangements. MARYSE
[2016-04-14 06:39] VITALS: BP 125/70
[2016-04-14] MEDS: ATORVASTATIN 20 MG TAB PO SCH (08:23)
[2016-04-14] MEDS: metFORMIN (GLUCOPHAGE) 500 MG TAB PO SCH (08:23)
[2016-04-14] MEDS: OMEPRAZOLE 20 MG CAP PO SCH (08:23)
[2016-04-14] MEDS: ADVAIR DISKUS 500/50 INH PWD INH SCH ×2 (08:23→21:15)
[2016-04-14] MEDS: MONTELUKAST 10 MG TAB PO SCH (08:23)
[2016-04-14] MEDS: ASPIRIN 81 MG ENTERIC TAB PO SCH (08:23)
[2016-04-14] MEDS: ESTRADIOL 1 MG TAB PO SCH (08:24)
[2016-04-14] MEDS: LISINOPRIL 5 MG TAB PO SCH (08:26)
[2016-04-14] MEDS: NITROFURANTOIN (MACROBID) 100 MG CAP PO SCH ×2 (08:27→21:14)
[2016-04-14] MEDS: ACETAMINOPHEN TAB 650MG DOSE (2X325MG) PO PRN ×2 (11:54→21:15)
[2016-04-14 18:42] VITALS: BP 129/61
[2016-04-14] MEDS: QUEtiapine FUMARATE 50 MG TAB PO SCH (21:15)
--- NOTE | 2016-04-14 23:46 | IPN ---
DATE OF SERVICE: 04/14/2016 The patient is seen and treatment reviewed. She states I'm doing good. I hear no voices and see no things. My neck hurt earlier today, but I took Tylenol and feeling better. She is presently been prescribed quetiapine 50 mg orally at bedtime, which says has been very beneficial in helping her to sleep. In addition, she is provided with ongoing therapeutic programming including group, individual and activity therapies. No major problems reported today. She says she is no longer having thoughts of hurting herself. OBSERVATION: VITAL SIGNS: Blood pressure 125/70, respirations 16, pulse 96, temperature 96.3. She is noted to show overall improvement as she has adjusted relatively well, socializing normally, reporting no more depressive symptoms. Her mood is noted to be less depressed. Affect appropriate. She denies suicidal or homicidal thoughts, plan or intent. No medication related adverse events. ASSESSMENT: The patient has showed marked improvement and appears relatively stable with no evidence of being a danger to self or to others. PLAN: She will be scheduled for discharge in 24 hours if she remains stable. MARYSE
[2016-04-15 06:36] VITALS: BP 129/57
[2016-04-15] MEDS: ACETAMINOPHEN TAB 650MG DOSE (2X325MG) PO PRN (07:20)
[2016-04-15] MEDS: metFORMIN (GLUCOPHAGE) 500 MG TAB PO SCH (07:20)
[2016-04-15] MEDS: ASPIRIN 81 MG ENTERIC TAB PO SCH (08:19)
[2016-04-15] MEDS: ADVAIR DISKUS 500/50 INH PWD INH SCH (08:19)
[2016-04-15] MEDS: ATORVASTATIN 20 MG TAB PO SCH (08:19)
[2016-04-15] MEDS: ESTRADIOL 1 MG TAB PO SCH (08:19)
[2016-04-15] MEDS: OMEPRAZOLE 20 MG CAP PO SCH (08:19)
[2016-04-15] MEDS: NITROFURANTOIN (MACROBID) 100 MG CAP PO SCH (08:19)
[2016-04-15 08:20] VITALS: BP 130/79
[2016-04-15] MEDS: LISINOPRIL 5 MG TAB PO SCH (08:20)
[2016-04-15] MEDS ORDERED: MACR100C3 PO (08:20)
[2016-04-15] MEDS: MONTELUKAST 10 MG TAB PO SCH (08:20)
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
== END 2016-04-15 14:15 | disposition home or self-care (01) | DRG 754 ==
LOC: M ED 09:21 → M PSY 13:55
PROVIDERS: ADMIT Psychiatry & Neurology Psychiatry; ATTEND Psychiatry & Neurology Psychiatry
DX: F32.9 Major depressive disorder, single episode, unspecified (principal); E11.9 Type 2 diabetes mellitus without complications; I10 Essential (primary) hypertension; G47.00 Insomnia, unspecified; J45.909 Unspecified asthma, uncomplicated; K21.9 Gastro-esophageal reflux disease without esophagitis; M54.2 Cervicalgia; M54.5 Low back pain; E78.5 Hyperlipidemia, unspecified; Z79.82 Long term (current) use of aspirin; Z79.899 Other long term (current) drug therapy; Z88.5 Allergy status to narcotic agent; Z88.8 Allergy status to other drugs, medicaments and biological substances; K58.8 Other irritable bowel syndrome; J30.9 Allergic rhinitis, unspecified

== ENCOUNTER → 2016-05-31 | Outpatient (REF) | payer MEDICARE, MEDICAID ==
[~2016-05-31] MED LIST changes: +ALBU17IN INH; +ALBU83IN INH; +ASPI1TAB PO; +CETI10TA PO; +CYCL10TA PO; +HYDR-3713 PO; +LIPI80TA PO; +LISI-542 PO; +MACR100C3 PO; +METF500T PO; +MOBI15TA PO; +OMEP20CA3 PO; +SERO1TAB PO; +SING10TA32 PO; +WELLTAB40 PO
[2016-05-31 20:41] LABS: ANION GAP 7 MEQ/L (8-16); BLOOD UREA NITROGEN 17 MG/DL (7-18); CALCIUM LEVEL 8.6 MG/DL (8.5-10.1); CARBON DIOXIDE LEVEL 28 MEQ/L (21-32); CHLORIDE LEVEL 107 MEQ/L (98-107); CREATININE FOR GFR 0.68 MG/DL (0.55-1.02); GLOMERULAR FILTRATION RATE > 60.0 (>58); GLUCOSE, FASTING 88 MG/DL (70-105); POTASSIUM SERUM 4.7 MEQ/L (3.5-5.1); SODIUM LEVEL 142 MEQ/L (136-145)
== END ==
LOC: M SFHCADAM 14:32
PROVIDERS: ATTEND Physician Assistant Medical
DX: F33.2 Major depressive disorder, recurrent severe without psychotic features (principal)
CPT/HCPCS: 80048; 84439; 84443; 86140; G0463

== ENCOUNTER → 2016-06-03 | Outpatient (REF) | payer MEDICARE, MEDICAID ==
[2016-06-03 19:41] LABS: BASO % 0.2 % (0.0-1.0); EOS # 0.1 K/mm3 (0.0-0.50); EOS % 2.2 % (0.0-3.0); LARGE UNSTAINED CELL # 0.2 K/mm3 (0.0-0.4); LARGE UNSTAINED CELL % 2.8 % (0.0-4.0); LYMPH # 1.7 K/mm3 (1.5-4.5); LYMPH % 26.4 % (24.0-44.0); MEAN CORPUSCULAR HEMOGLOBIN 28.1 pg (27.0-33.0); MEAN CORPUSCULAR VOLUME 85.3 fl (80.0-96.0); MONO # 0.5 K/mm3 (0.0-0.8); MONO % 7.2 % (0.0-5.0); NEUTROPHILS % 61.4 % (36.0-66.0); PLATELET COUNT, AUTOMATED 282 k/mm3 (150-450); RED CELL DISTRIBUTION WIDTH 12.7 % (11.5-14.5); WHITE BLOOD COUNT 6.6 K/mm3 (4.0-10.0)
[2016-06-03 20:12] LABS: ERYTHROCYTE SEDIMENTATION RATE 25 mm/hr (0-20)
[2016-06-06 00:06] LABS: Lyme Disease IgG/IgM Antibodie <0.91 ISR (0.00-0.90); Lyme Disease IgM Ab Quantitati <0.80 index (0.00-0.79)
== END ==
LOC: M SFHCADAM 13:13
PROVIDERS: ATTEND Physician Assistant Medical
DX: F33.2 Major depressive disorder, recurrent severe without psychotic features (principal)

== ENCOUNTER → 2016-06-12 | Outpatient (CLI) | payer MEDICARE, MEDICAID ==
[~2016-06-12] MED LIST changes: +BENT10CA PO; +LITH150C PO; +LITH300C PO; +NAPR500T PO; +PROA1AER INH; +SERO50TA PO
--- NOTE | 2016-06-12 14:21 | REPMRS ---
Patient History The patient states she had a clinical breast exam in 06/2016. Patient is postmenopausal. No known family history of cancer. Taking estrogen for 18 years. Digital Woman Screen Mammo: June 12, 2016 - Exam #: [id number] Bilateral CC and MLO view(s) were taken. Technologist: Cherelle Meza Technologist Prior study comparison: May 03, 2015, digital woman screen mammo performed at [facility] to [facility]. May 06, 2014, digital woman screen mammo performed at [facility] to [facility]. FINDINGS: There are scattered fibroglandular densities. There has been no change in the appearance of the mammogram from the prior studies. There is a mild amount of residual fibroglandular tissue which is fairly symmetric. There is no interval development of dominant mass, architectural distortion, or clustered microcalcification suggestive of malignancy. ASSESSMENT: BI-RADS/ACR category 1 mammogram. Negative. Recommendation Routine screening mammogram in 1 year (for women over age 40). This mammogram was interpreted with the aid of an FDA-approved computer-aided dectection system. Electronically Signed By: Karthik Grossman MD 06/12/16 [id number]
== END ==
LOC: M WHC 13:38
PROVIDERS: ATTEND Nurse Practitioner Family
DX: Z01.419 Encounter for gynecological examination (general) (routine) without abnormal findings (principal); Z12.31 Encounter for screening mammogram for malignant neoplasm of breast; Z78.0 Asymptomatic menopausal state
CPT/HCPCS: G0101; G0202

== ENCOUNTER 2016-07-01 11:29 | Emergency (ER) | payer MEDICAID, MEDICARE ==
[~2016-07-01] VITALS: Ht 165.1 cm; Wt 101.6 kg
[~2016-07-01 11:29] MED LIST changes: -BENT10CA PO; -LITH150C PO; -LITH300C PO; -NAPR500T PO; -PROA1AER INH; -SERO50TA PO
[2016-07-01] MEDS ORDERED: HYDR-3713 PO (12:12)
[2016-07-01] MEDS ORDERED: SERO50TA PO (12:12)
[2016-07-01] MEDS ORDERED: LITH300C PO (12:12)
[2016-07-01] MEDS ORDERED: LITH150C PO (12:12)
[2016-07-01] MEDS ORDERED: PROA1AER INH (12:12)
[2016-07-01] MEDS ORDERED: NS 1,000 ML IV ONE (14:15)
[2016-07-01] MEDS ORDERED: ONDANSETRON 4MG/2ML VIAL (J2405) IV ONE (14:15)
[2016-07-01] MEDS: MORPHINE 4 MG/ML 1ML SYRINGE IV PRN ×2 (14:35→14:57)
[2016-07-01 14:46] LABS: BASO % 0.5 % (0.0-1.0); EOS # 0.2 K/mm3 (0.0-0.50); LARGE UNSTAINED CELL # 0.1 K/mm3 (0.0-0.4); LARGE UNSTAINED CELL % 2.1 % (0.0-4.0); LYMPH # 1.8 K/mm3 (1.5-4.5); LYMPH % 27.3 % (24.0-44.0); MEAN CORPUSCULAR HEMOGLOBIN 27.8 pg (27.0-33.0); MEAN CORPUSCULAR HGB CONC 32.9 g/dl (32.0-36.5); MEAN CORPUSCULAR VOLUME 84.5 fl (80.0-96.0); MONO # 0.4 K/mm3 (0.0-0.8); MONO % 6.2 % (0.0-5.0); NEUTROPHILS # 4.1 K/mm3 (1.8-7.7); NEUTROPHILS % 60.9 % (36.0-66.0); PLATELET COUNT, AUTOMATED 308 k/mm3 (150-450); RED CELL DISTRIBUTION WIDTH 12.5 % (11.5-14.5); WHITE BLOOD COUNT 6.7 K/mm3 (4.0-10.0)
[2016-07-01 14:51] LABS: INR 0.95
[2016-07-01 15:07] LABS: ALBUMIN 3.4 GM/DL (3.2-5.2); ALBUMIN/GLOBULIN RATIO 0.81 (1.00-1.93); ALKALINE PHOSPHATASE 102 U/L (45-117); ALT/SGPT 43 U/L (12-78); ANION GAP 9 MEQ/L (8-16); AST/SGOT 26 U/L (15-37); BILIRUBIN,DIRECT < 0.1 MG/DL (0.0-0.2); BILIRUBIN,TOTAL 0.5 MG/DL (0.2-1.0); BLOOD UREA NITROGEN 16 MG/DL (7-18); CALCIUM LEVEL 8.9 MG/DL (8.5-10.1); CARBON DIOXIDE LEVEL 27 MEQ/L (21-32); CHLORIDE LEVEL 105 MEQ/L (98-107); CREATININE FOR GFR 0.69 MG/DL (0.55-1.02); GLOMERULAR FILTRATION RATE > 60.0 (>58); GLUCOSE, FASTING 90 MG/DL (70-105); POTASSIUM SERUM 4.3 MEQ/L (3.5-5.1); SODIUM LEVEL 141 MEQ/L (136-145); TOTAL PROTEIN 7.6 GM/DL (6.4-8.2)
[2016-07-01] MEDS ORDERED: ISOVUE-370 76% 100ML VIAL (Q9967) As Ordered ONE (15:14)
[2016-07-01 15:21] VITALS: BP 127/70
--- NOTE | 2016-07-01 15:51 | REP ---
Clinical: Right lower quadrant pain. Technique: Axial contrast enhanced images from the lung bases to the pubic symphysis using 100 ml Isovue 370 intravenous contrast material with coronal and sagittal re-formations. Comparison: 02/23/2014. Findings: Lung bases suggest trace left basilar atelectasis. Liver, spleen, pancreas, bilateral adrenal glands and kidneys are normal. The patient is status post cholecystectomy. The enteric system is without obstruction or acute inflammatory process. Normal terminal ileum and appendix identified in the right lower quadrant. Pelvis demonstrates normal bladder and evidence for prior hysterectomy. No pelvic fluid or ascites. No free air. No adenopathy. Vasculature normal. Surrounding musculoskeletal structures are grossly unremarkable. A small fat-containing supraumbilical ventral hernia measures 2.7 cm. Impression: 1. Essentially normal contrast and CT of the abdomen and pelvis. No acute intra-abdominal or pelvic pathology. Free fluid. 2. Small fat-containing supraumbilical hernia. Signed by Hiram Leal MD 07/01/2016 03:42 P
[2016-07-01] MEDS ORDERED: NAPR500T PO (16:15)
[2016-07-01] MEDS ORDERED: BENT10CA PO (16:15)
== END 2016-07-01 16:24 | disposition home or self-care (01) ==
LOC: M ED 13:44
DX: R10.31 Right lower quadrant pain (principal); R11.0 Nausea; F33.9 Major depressive disorder, recurrent, unspecified; Z79.899 Other long term (current) drug therapy; Z79.51 Long term (current) use of inhaled steroids; Z79.82 Long term (current) use of aspirin; Z88.5 Allergy status to narcotic agent; Z88.8 Allergy status to other drugs, medicaments and biological substances
CPT/HCPCS: 74177; 80048; 80076; 81001; 83690; 85025; 85610; 85730; 96361; 96374; 96375; 99282; G0463; J2405; Q9967

== ENCOUNTER → 2016-07-31 | Outpatient (REF) | payer MEDICARE, MEDICAID ==
[~2016-07-31] MED LIST changes: +BENT10CA PO; +LITH150C PO; +LITH300C PO; +NAPR500T PO; +PROA1AER INH; +SERO50TA PO
[2016-07-31 20:11] LABS: BASO % 0.6 % (0.0-1.0); EOS # 0.1 K/mm3 (0.0-0.50); EOS % 2.3 % (0.0-3.0); LARGE UNSTAINED CELL # 0.1 K/mm3 (0.0-0.4); LARGE UNSTAINED CELL % 1.8 % (0.0-4.0); LYMPH # 1.5 K/mm3 (1.5-4.5); LYMPH % 22.4 % (24.0-44.0); MEAN CORPUSCULAR HEMOGLOBIN 28.6 pg (27.0-33.0); MEAN CORPUSCULAR HGB CONC 32.6 g/dl (32.0-36.5); MEAN CORPUSCULAR VOLUME 87.7 fl (80.0-96.0); MONO # 0.4 K/mm3 (0.0-0.8); MONO % 7.2 % (0.0-5.0); NEUTROPHILS % 65.7 % (36.0-66.0); PLATELET COUNT, AUTOMATED 306 k/mm3 (150-450); RED CELL DISTRIBUTION WIDTH 12.6 % (11.5-14.5)
[2016-07-31 21:06] LABS: ALBUMIN 3.5 GM/DL (3.2-5.2); ALBUMIN/GLOBULIN RATIO 0.97 (1.00-1.93); ALKALINE PHOSPHATASE 101 U/L (45-117); ALT/SGPT 28 U/L (12-78); ANION GAP 6 MEQ/L (8-16); AST/SGOT 18 U/L (15-37); BILIRUBIN,TOTAL 0.4 MG/DL (0.2-1.0); BLOOD UREA NITROGEN 20 MG/DL (7-18); CALCIUM LEVEL 9.2 MG/DL (8.5-10.1); CARBON DIOXIDE LEVEL 27 MEQ/L (21-32); CHLORIDE LEVEL 107 MEQ/L (98-107); CHOLESTEROL LEVEL 189 MG/DL (<200); CREATININE FOR GFR 0.75 MG/DL (0.55-1.02); GLOMERULAR FILTRATION RATE > 60.0 (>58); GLUCOSE, FASTING 96 MG/DL (70-105); POTASSIUM SERUM 4.7 MEQ/L (3.5-5.1); SODIUM LEVEL 140 MEQ/L (136-145); TOTAL PROTEIN 7.1 GM/DL (6.4-8.2); TRIGLYCERIDES LEVEL 233 MG/DL (<150)
== END ==
LOC: M SFHCADAM 11:27
PROVIDERS: ATTEND Physician Assistant Medical
DX: K21.9 Gastro-esophageal reflux disease without esophagitis (principal); E78.4 Other hyperlipidemia; E11.9 Type 2 diabetes mellitus without complications

== ENCOUNTER → 2016-10-17 | Outpatient (REF) | payer MEDICARE, MEDICAID ==
[~2016-10-17] MED LIST changes: -MACR100C3 PO; +MACR100C43 PO; -METF500T PO; +METF500T13 PO; -PROA1AER INH; +PROAAER10 INH
[2016-10-17 13:13] LABS: ANION GAP 6 MEQ/L (8-16); BLOOD UREA NITROGEN 18 MG/DL (7-18); CALCIUM LEVEL 9.4 MG/DL (8.5-10.1); CARBON DIOXIDE LEVEL 29 MEQ/L (21-32); CHLORIDE LEVEL 106 MEQ/L (98-107); CREATININE FOR GFR 0.68 MG/DL (0.55-1.02); GLOMERULAR FILTRATION RATE > 60.0 (>58); GLUCOSE, FASTING 86 MG/DL (70-105); POTASSIUM SERUM 4.4 MEQ/L (3.5-5.1); SODIUM LEVEL 141 MEQ/L (136-145)
== END ==
LOC: M SFHCADAM 11:29
PROVIDERS: ATTEND Physician Assistant Medical
DX: R60.1 Generalized edema (principal)

== ENCOUNTER → 2017-01-02 | Outpatient (REF) | payer MEDICARE, MEDICAID ==
[2017-01-02 15:06] LABS: CHOLESTEROL LEVEL 146 MG/DL (<200); TRIGLYCERIDES LEVEL 191 MG/DL (<150)
[2017-01-02 15:08] LABS: LITHIUM LEVEL < 0.20 MEQ/L (0.60-1.20)
== END ==
LOC: M LABDRWAD 13:15
PROVIDERS: ATTEND Nurse Practitioner Psychiatric/Mental Health
DX: Z51.81 Encounter for therapeutic drug level monitoring (principal); Z79.899 Other long term (current) drug therapy

== ENCOUNTER → 2017-02-18 | Outpatient (REF) | payer MEDICARE, MEDICAID ==
[2017-02-18 14:06] LABS: ALBUMIN 3.2 GM/DL (3.2-5.2); ALBUMIN/GLOBULIN RATIO 0.82 (1.00-1.93); ALKALINE PHOSPHATASE 109 U/L (45-117); ALT/SGPT 29 U/L (12-78); ANION GAP 6 MEQ/L (8-16); AST/SGOT 17 U/L (7-37); BILIRUBIN,TOTAL 0.4 MG/DL (0.2-1.0); BLOOD UREA NITROGEN 15 MG/DL (7-18); CALCIUM LEVEL 9.3 MG/DL (8.5-10.1); CARBON DIOXIDE LEVEL 28 MEQ/L (21-32); CHLORIDE LEVEL 108 MEQ/L (98-107); CHOLESTEROL LEVEL 179 MG/DL (<200); CREATININE FOR GFR 0.66 MG/DL (0.55-1.02); GLOMERULAR FILTRATION RATE > 60.0 (>58); GLUCOSE, FASTING 91 MG/DL (70-105); POTASSIUM SERUM 4.3 MEQ/L (3.5-5.1); SODIUM LEVEL 142 MEQ/L (136-145); TOTAL PROTEIN 7.1 GM/DL (6.4-8.2); TRIGLYCERIDES LEVEL 199 MG/DL (<150)
== END ==
LOC: M SFHCADAM 10:24
PROVIDERS: ATTEND Physician Assistant Medical
DX: E78.4 Other hyperlipidemia (principal); E11.9 Type 2 diabetes mellitus without complications

== ENCOUNTER → 2017-02-21 | Outpatient (REF) | payer MEDICARE, MEDICAID ==
[~2017-02-21] MED LIST changes: +BENT20TA PO; +ZOFR4TAB3 PO
== END ==
LOC: M SFHCADAM 16:48
PROVIDERS: ATTEND Physician Assistant
DX: R11.2 Nausea with vomiting, unspecified (principal)
CPT/HCPCS: 87507; G0463

== ENCOUNTER → 2017-03-13 | Outpatient (REF) | payer MEDICARE, MEDICAID ==
[2017-03-13 13:48] LABS: ALBUMIN 3.6 GM/DL (3.2-5.2); ANION GAP 9 MEQ/L (8-16); BLOOD UREA NITROGEN 20 MG/DL (7-18); CALCIUM LEVEL 9.2 MG/DL (8.5-10.1); CARBON DIOXIDE LEVEL 27 MEQ/L (21-32); CHLORIDE LEVEL 106 MEQ/L (98-107); CHOLESTEROL LEVEL 167 MG/DL (<200); CREATININE FOR GFR 0.84 MG/DL (0.55-1.02); GLOMERULAR FILTRATION RATE > 60.0 (>58); GLUCOSE, FASTING 104 MG/DL (70-105); PHOSPHORUS LEVEL 3.8 MG/DL (2.5-4.9); POTASSIUM SERUM 4.3 MEQ/L (3.5-5.1); SODIUM LEVEL 142 MEQ/L (136-145); TRIGLYCERIDES LEVEL 224 MG/DL (<150)
[2017-03-13 13:55] LABS: LITHIUM LEVEL 0.39 MEQ/L (0.60-1.20)
== END ==
LOC: M LABDRWAD 12:36
PROVIDERS: ATTEND Nurse Practitioner Psychiatric/Mental Health
DX: Z51.81 Encounter for therapeutic drug level monitoring (principal); Z79.899 Other long term (current) drug therapy; F31.60 Bipolar disorder, current episode mixed, unspecified

== ENCOUNTER 2017-03-14 12:28 | Emergency (ER) | payer MEDICARE, MEDICAID ==
[~2017-03-14] VITALS: Ht 165.1 cm; Wt 102.8 kg
[~2017-03-14 12:28] MED LIST changes: -BENT20TA PO; -ZOFR4TAB3 PO
[2017-03-14] MEDS ORDERED: METOCLOPRAMIDE INJ 10MG/2ML VIAL (J2765) IV ONE (13:45)
[2017-03-14] MEDS ORDERED: NS 1,000 ML IV ONE (13:45)
[2017-03-14 13:58] LABS: BASO % 0.4 % (0.0-1.0); EOS # 0.2 10^3/uL (0.0-0.50); EOS % 2.6 % (0.0-3.0); IMMATURE GRANULOCYTE % 0.1 % (0-0); LYMPH % 28.7 % (24.0-44.0); MEAN CORPUSCULAR HEMOGLOBIN 27.7 pg (27.0-33.0); MEAN CORPUSCULAR HGB CONC 32.7 g/dl (32.0-36.5); MEAN CORPUSCULAR VOLUME 84.7 fl (80.0-96.0); MONO # 0.6 10^3/uL (0.0-0.8); MONO % 8.1 % (0.0-5.0); NEUTROPHILS # 4.2 10^3/uL (1.8-7.7); NEUTROPHILS % 60.1 % (36.0-66.0); PLATELET COUNT, AUTOMATED 370 10^3/uL (150-450); RED CELL DISTRIBUTION WIDTH 12.6 % (11.5-14.5)
--- NOTE | 2017-03-14 14:04 | REP ---
Supine abdomen two views: Comparison is 03/29/2016. The bowel gas pattern is normal. There are calcifications inferiorly in the pelvis on the left, unchanged, likely phleboliths. The skeletal structures and soft tissues otherwise are unremarkable. Surgical clips are again identified in the abdominal right upper quadrant. Impression: Normal bowel gas pattern. Signed by Karthik Wallis MD 03/14/2017 01:55 P
[2017-03-14 14:21] LABS: ALBUMIN 3.3 GM/DL (3.2-5.2); ALBUMIN/GLOBULIN RATIO 0.65 (1.00-1.93); ALKALINE PHOSPHATASE 103 U/L (45-117); ALT/SGPT 36 U/L (12-78); AMYLASE 46 U/L (25-115); ANION GAP 5 MEQ/L (8-16); AST/SGOT 22 U/L (7-37); BILIRUBIN,DIRECT < 0.1 MG/DL (0.0-0.2); BILIRUBIN,TOTAL 0.5 MG/DL (0.2-1.0); BLOOD UREA NITROGEN 16 MG/DL (7-18); CALCIUM LEVEL 9.1 MG/DL (8.5-10.1); CARBON DIOXIDE LEVEL 31 MEQ/L (21-32); CHLORIDE LEVEL 103 MEQ/L (98-107); CREATININE FOR GFR 0.76 MG/DL (0.55-1.02); GLOMERULAR FILTRATION RATE > 60.0 (>58); GLUCOSE, FASTING 90 MG/DL (70-105); POTASSIUM SERUM 3.3 MEQ/L (3.5-5.1); SODIUM LEVEL 139 MEQ/L (136-145); TOTAL PROTEIN 8.4 GM/DL (6.4-8.2)
[2017-03-14] MEDS ORDERED: DICYCLOMINE 10 MG CAP PO ONE (15:15)
[2017-03-14 15:16] LABS: LITHIUM LEVEL 0.35 MEQ/L (0.60-1.20)
[2017-03-14 15:25] VITALS: BP 122/83
[2017-03-14] MEDS ORDERED: BENT20TA PO (15:53)
[2017-03-14] MEDS ORDERED: ZOFR4TAB3 PO (15:53)
[2017-03-14] MEDS ORDERED: POTASSIUM CHLORIDE 10 MEQ SR TABLET PO ONE (16:00)
== END 2017-03-14 16:20 | disposition home or self-care (01) ==
LOC: M ED 12:28
DX: K58.9 Irritable bowel syndrome, unspecified (principal); Z79.899 Other long term (current) drug therapy; Z79.82 Long term (current) use of aspirin; Z88.8 Allergy status to other drugs, medicaments and biological substances
CPT/HCPCS: 74000; 80048; 80076; 80178; 81001; 82150; 83690; 85025; 87507; 96361; 96374; 99284; J2765

== ENCOUNTER → 2017-04-04 | Outpatient (REF) | payer MEDICARE, MEDICAID ==
[2017-04-04 19:50] LABS: MEAN CORPUSCULAR HEMOGLOBIN 27.7 pg (27.0-33.0); MEAN CORPUSCULAR HGB CONC 32.6 g/dl (32.0-36.5); PLATELET COUNT, AUTOMATED 352 10^3/uL (150-450); WHITE BLOOD COUNT 9.1 10^3/uL (4.0-10.0)
[2017-04-04 20:09] LABS: ALBUMIN 3.5 GM/DL (3.2-5.2); ALBUMIN/GLOBULIN RATIO 0.92 (1.00-1.93); ALKALINE PHOSPHATASE 97 U/L (45-117); ALT/SGPT 29 U/L (12-78); ANION GAP 8 MEQ/L (8-16); AST/SGOT 18 U/L (7-37); BILIRUBIN,TOTAL 0.4 MG/DL (0.2-1.0); BLOOD UREA NITROGEN 14 MG/DL (7-18); CALCIUM LEVEL 8.5 MG/DL (8.5-10.1); CARBON DIOXIDE LEVEL 27 MEQ/L (21-32); CHLORIDE LEVEL 109 MEQ/L (98-107); CREATININE FOR GFR 0.69 MG/DL (0.55-1.02); GLOMERULAR FILTRATION RATE > 60.0 (>58); GLUCOSE, FASTING 83 MG/DL (70-105); POTASSIUM SERUM 3.6 MEQ/L (3.5-5.1); SODIUM LEVEL 144 MEQ/L (136-145); TOTAL PROTEIN 7.3 GM/DL (6.4-8.2)
[2017-04-04 20:12] LABS: LITHIUM LEVEL 0.41 MEQ/L (0.60-1.20)
== END ==
LOC: M SFHCADAM 14:21
DX: R11.10 Vomiting, unspecified (principal); K52.9 Noninfective gastroenteritis and colitis, unspecified; Z79.82 Long term (current) use of aspirin; Z79.84 Long term (current) use of oral hypoglycemic drugs; Z79.1 Long term (current) use of non-steroidal anti-inflammatories (NSAID); Z79.899 Other long term (current) drug therapy
CPT/HCPCS: 80178

== ENCOUNTER → 2017-04-08 | Outpatient (CLI) | payer MEDICARE, MEDICAID | LOC: M RAD 08:44 | DX: R11.10 Vomiting, unspecified (principal) | CPT/HCPCS: 74176 ==

== ENCOUNTER 2017-04-16 23:35 | Inpatient (IN) | payer MEDICARE, MEDICAID ==
[2017-04-17 00:41] LABS: BASO % 0.5 % (0.0-1.0); EOS # 0.2 10^3/uL (0.0-0.50); EOS % 2.2 % (0.0-3.0); HEMATOCRIT 45.2 % (36.0-47.0); HEMOGLOBIN 14.9 g/dl (12.0-16.0); IMMATURE GRANULOCYTE % 0.1 % (0-0); LYMPH # 2.1 10^3/uL (1.5-4.5); LYMPH % 25.4 % (24.0-44.0); MEAN CORPUSCULAR HEMOGLOBIN 27.6 pg (27.0-33.0); MEAN CORPUSCULAR VOLUME 83.7 fl (80.0-96.0); MONO # 0.9 10^3/uL (0.0-0.8); MONO % 10.4 % (0.0-5.0); NEUTROPHILS % 61.4 % (36.0-66.0); PLATELET COUNT, AUTOMATED 327 10^3/uL (150-450); RED CELL DISTRIBUTION WIDTH 13.1 % (11.5-14.5); WHITE BLOOD COUNT 8.2 10^3/uL (4.0-10.0)
[2017-04-17 00:48] LABS: ALBUMIN 3.5 GM/DL (3.2-5.2); ALKALINE PHOSPHATASE 109 U/L (45-117); ALT/SGPT 46 U/L (12-78); ANION GAP 10 MEQ/L (8-16); AST/SGOT 21 U/L (7-37); BILIRUBIN,DIRECT < 0.1 MG/DL (0.0-0.2); BILIRUBIN,TOTAL 0.5 MG/DL (0.2-1.0); BLOOD UREA NITROGEN 11 MG/DL (7-18); CALCIUM LEVEL 8.8 MG/DL (8.5-10.1); CARBON DIOXIDE LEVEL 25 MEQ/L (21-32); CHLORIDE LEVEL 106 MEQ/L (98-107); CPK CREATINE PHOSPHOKINASE 47 U/L (26-192); GLOMERULAR FILTRATION RATE > 60.0 (>58); GLUCOSE, FASTING 114 MG/DL (70-105); LIPASE 83 U/L (73-393); MB/CK RELATIVE INDEX 2.12 (< OR =4); POTASSIUM SERUM 3.7 MEQ/L (3.5-5.1); SODIUM LEVEL 141 MEQ/L (136-145); TOTAL PROTEIN 7.9 GM/DL (6.4-8.2); TROPONIN I < 0.02 NG/ML (< 0.10)
[2017-04-17] MEDS ORDERED: ISOVUE-370 76% 100ML VIAL (Q9967) As Ordered (00:59)
[2017-04-17] MEDS: GI COCKTAIL 50ML BTL(HYOSCYAMINE/MAALOX/LIDOCAINE VISCOUS)(1:3:1) PO (01:26)
[2017-04-17] MEDS: PANTOPRAZOLE 40MG INJ (PROTONIX) (C9113) IV ×3 (01:27→20:16)
[2017-04-17] MEDS: ONDANSETRON 4MG/2ML VIAL (J2405) IV ×2 (01:27→06:57)
[2017-04-17] MEDS: MORPHINE 4 MG/ML 1ML SYRINGE IV ×2 (02:52→04:30)
[2017-04-17] MEDS ORDERED: ALBUTEROL 90 MCG/ACT 8GM HFA INHALER INH (05:00)
[2017-04-17] MEDS ORDERED: GLUCAGON FOR INJ 1 MG VIAL (J1610) SC (05:15)
[2017-04-17] MEDS ORDERED: DEXTROSE 50% 50 ML SYRINGE IV (05:15)
[2017-04-17] MEDS ORDERED: GLUCOSE 4 GM CHEW TABLET PO (05:15)
[2017-04-17 05:54] LABS: BASO % 0.5 % (0.0-1.0); EOS # 0.2 10^3/uL (0.0-0.50); EOS % 2.3 % (0.0-3.0); HEMATOCRIT 44.8 % (36.0-47.0); HEMOGLOBIN 14.5 g/dl (12.0-16.0); IMMATURE GRANULOCYTE % 0.3 % (0-0); LYMPH # 2.2 10^3/uL (1.5-4.5); LYMPH % 28.2 % (24.0-44.0); MEAN CORPUSCULAR HEMOGLOBIN 27.4 pg (27.0-33.0); MEAN CORPUSCULAR HGB CONC 32.4 g/dl (32.0-36.5); MEAN CORPUSCULAR VOLUME 84.7 fl (80.0-96.0); MONO # 0.8 10^3/uL (0.0-0.8); MONO % 10.9 % (0.0-5.0); NEUTROPHILS # 4.5 10^3/uL (1.8-7.7); NEUTROPHILS % 57.8 % (36.0-66.0); PLATELET COUNT, AUTOMATED 302 10^3/uL (150-450); RED BLOOD COUNT 5.29 10^6/uL (4.00-5.40); RED CELL DISTRIBUTION WIDTH 13.2 % (11.5-14.5); WHITE BLOOD COUNT 7.7 10^3/uL (4.0-10.0)
[2017-04-17] MEDS: D5W 1,000 ML IV ×3 (05:59→20:24)
[2017-04-17] MEDS: HumaLOG INSULIN (NovoLOG) PER UNIT SC ×3 (06:00→18:00)
[2017-04-17 06:08] LABS: BEDSIDE GLUCOSE 100 MG/DL (70-105)
[2017-04-17 06:18] LABS: ANION GAP 6 MEQ/L (8-16); BLOOD UREA NITROGEN 10 MG/DL (7-18); CALCIUM LEVEL 8.7 MG/DL (8.5-10.1); CARBON DIOXIDE LEVEL 29 MEQ/L (21-32); CHLORIDE LEVEL 108 MEQ/L (98-107); CREATININE FOR GFR 0.77 MG/DL (0.55-1.02); GLOMERULAR FILTRATION RATE > 60.0 (>58); GLUCOSE, FASTING 108 MG/DL (70-105); POTASSIUM SERUM 4.3 MEQ/L (3.5-5.1); SODIUM LEVEL 143 MEQ/L (136-145)
[2017-04-17] MEDS: NORCO, ANEXSIA 5/325MG TABLET (HYDROcodone/ACETAMINOPHEN) PO ×3 (06:57→20:24)
[2017-04-17] MEDS: ALBUTEROL SULFATE 2.5 MG/0.5 ML INH NEB SOLN INH (07:42)
[2017-04-17] MEDS: ESTRADIOL 1 MG TAB PO (08:44)
[2017-04-17] MEDS: ENOXAPARIN 40 MG/0.4 ML SYRINGE (J1650) SC (08:44)
[2017-04-17] MEDS: ASPIRIN 81 MG ENTERIC TAB PO (08:45)
[2017-04-17] MEDS: LITHIUM CARBONATE 300 MG CAP PO ×2 (08:45→20:16)
[2017-04-17] MEDS: MONTELUKAST 10 MG TAB PO (08:45)
[2017-04-17] MEDS: CETIRIZINE (ZyrTEC) 10 MG TAB PO (08:47)
[2017-04-17] MEDS: DICYCLOMINE 10 MG CAP PO ×2 (09:00→20:16)
[2017-04-17 14:11] LABS: BEDSIDE GLUCOSE 91 MG/DL (70-105)
[2017-04-17 17:20] LABS: BEDSIDE GLUCOSE 107 MG/DL (70-105)
[2017-04-17] MEDS: QUEtiapine FUMARATE 50 MG TAB PO (20:16)
[2017-04-17 23:53] LABS: BEDSIDE GLUCOSE 122 MG/DL (70-105)
[2017-04-18] MEDS: HumaLOG INSULIN (NovoLOG) PER UNIT SC ×4 (00:27→17:50)
[2017-04-18] MEDS: D5W 1,000 ML IV ×3 (05:23→17:14)
[2017-04-18 05:33] LABS: BEDSIDE GLUCOSE 126 MG/DL (70-105)
[2017-04-18 06:21] LABS: BASO % 0.6 % (0.0-1.0); EOS # 0.2 10^3/uL (0.0-0.50); EOS % 4.2 % (0.0-3.0); HEMATOCRIT 41.3 % (36.0-47.0); HEMOGLOBIN 13.4 g/dl (12.0-16.0); IMMATURE GRANULOCYTE % 0.2 % (0-0); LYMPH # 1.7 10^3/uL (1.5-4.5); LYMPH % 33.3 % (24.0-44.0); MEAN CORPUSCULAR HEMOGLOBIN 27.6 pg (27.0-33.0); MEAN CORPUSCULAR HGB CONC 32.4 g/dl (32.0-36.5); MONO # 0.6 10^3/uL (0.0-0.8); MONO % 11.3 % (0.0-5.0); NEUTROPHILS # 2.5 10^3/uL (1.8-7.7); NEUTROPHILS % 50.4 % (36.0-66.0); PLATELET COUNT, AUTOMATED 269 10^3/uL (150-450); RED BLOOD COUNT 4.86 10^6/uL (4.00-5.40); RED CELL DISTRIBUTION WIDTH 13.2 % (11.5-14.5)
[2017-04-18 06:41] LABS: ANION GAP 5 MEQ/L (8-16); BLOOD UREA NITROGEN 5 MG/DL (7-18); CALCIUM LEVEL 8.7 MG/DL (8.5-10.1); CARBON DIOXIDE LEVEL 28 MEQ/L (21-32); CHLORIDE LEVEL 106 MEQ/L (98-107); CREATININE FOR GFR 0.69 MG/DL (0.55-1.02); GLOMERULAR FILTRATION RATE > 60.0 (>58); GLUCOSE, FASTING 124 MG/DL (70-105); LIPASE 112 U/L (73-393); POTASSIUM SERUM 3.9 MEQ/L (3.5-5.1); SODIUM LEVEL 139 MEQ/L (136-145)
[2017-04-18] MEDS: MONTELUKAST 10 MG TAB PO (08:32)
[2017-04-18] MEDS: LITHIUM CARBONATE 300 MG CAP PO ×2 (08:32→20:06)
[2017-04-18] MEDS: PANTOPRAZOLE 40MG INJ (PROTONIX) (C9113) IV ×2 (08:32→20:07)
[2017-04-18] MEDS: ESTRADIOL 1 MG TAB PO (08:32)
[2017-04-18] MEDS: DICYCLOMINE 10 MG CAP PO ×2 (08:32→20:06)
[2017-04-18] MEDS: ENOXAPARIN 40 MG/0.4 ML SYRINGE (J1650) SC (08:32)
[2017-04-18] MEDS: ASPIRIN 81 MG ENTERIC TAB PO (08:32)
[2017-04-18] MEDS: ONDANSETRON 4MG/2ML VIAL (J2405) IV (08:37)
[2017-04-18] MEDS: GI COCKTAIL 50ML BTL(HYOSCYAMINE/MAALOX/LIDOCAINE VISCOUS)(1:3:1) PO (10:47)
[2017-04-18] MEDS: SUCRALFATE 1 GM TAB PO ×4 (10:48→20:06)
[2017-04-18 11:55] LABS: BEDSIDE GLUCOSE 105 MG/DL (70-105)
[2017-04-18] MEDS: NORCO, ANEXSIA 5/325MG TABLET (HYDROcodone/ACETAMINOPHEN) PO ×2 (13:36→20:07)
[2017-04-18 14:14] LABS: BEDSIDE GLUCOSE 93 MG/DL (70-105)
[2017-04-18] MEDS ORDERED: PROPOFOL 200 MG/20 ML VIAL As Ordered ×2 (15:02)
[2017-04-18] MEDS ORDERED: LIDOCAINE 2% INJ 100 MG/5 ML SDV (FOR ANES.) As Ordered (15:02)
[2017-04-18 17:50] LABS: BEDSIDE GLUCOSE 108 MG/DL (70-105)
[2017-04-18] MEDS: QUEtiapine FUMARATE 50 MG TAB PO (20:06)
[2017-04-19 00:24] LABS: BEDSIDE GLUCOSE 109 MG/DL (70-105)
[2017-04-19] MEDS: HumaLOG INSULIN (NovoLOG) PER UNIT SC ×5 (00:31→23:45)
[2017-04-19] MEDS: D5W 1,000 ML IV ×2 (05:45→12:59)
[2017-04-19 06:04] LABS: BASO % 0.7 % (0.0-1.0); EOS # 0.2 10^3/uL (0.0-0.50); EOS % 4.3 % (0.0-3.0); HEMATOCRIT 42.6 % (36.0-47.0); HEMOGLOBIN 13.6 g/dl (12.0-16.0); IMMATURE GRANULOCYTE % 0.2 % (0-0); LYMPH % 45.7 % (24.0-44.0); MEAN CORPUSCULAR HEMOGLOBIN 27.3 pg (27.0-33.0); MEAN CORPUSCULAR HGB CONC 31.9 g/dl (32.0-36.5); MEAN CORPUSCULAR VOLUME 85.4 fl (80.0-96.0); MONO # 0.6 10^3/uL (0.0-0.8); MONO % 12.6 % (0.0-5.0); NEUTROPHILS # 1.6 10^3/uL (1.8-7.7); NEUTROPHILS % 36.5 % (36.0-66.0); PLATELET COUNT, AUTOMATED 279 10^3/uL (150-450); RED BLOOD COUNT 4.99 10^6/uL (4.00-5.40); RED CELL DISTRIBUTION WIDTH 13.2 % (11.5-14.5); WHITE BLOOD COUNT 4.5 10^3/uL (4.0-10.0)
[2017-04-19 06:14] LABS: BEDSIDE GLUCOSE 95 MG/DL (70-105)
[2017-04-19 06:25] LABS: ANION GAP 4 MEQ/L (8-16); BLOOD UREA NITROGEN 4 MG/DL (7-18); CALCIUM LEVEL 8.7 MG/DL (8.5-10.1); CARBON DIOXIDE LEVEL 30 MEQ/L (21-32); CHLORIDE LEVEL 107 MEQ/L (98-107); CREATININE FOR GFR 0.74 MG/DL (0.55-1.02); GLOMERULAR FILTRATION RATE > 60.0 (>58); GLUCOSE, FASTING 109 MG/DL (70-105); POTASSIUM SERUM 3.6 MEQ/L (3.5-5.1); SODIUM LEVEL 141 MEQ/L (136-145)
[2017-04-19] MEDS: ASPIRIN 81 MG ENTERIC TAB PO (09:00)
[2017-04-19] MEDS: MONTELUKAST 10 MG TAB PO (09:00)
[2017-04-19] MEDS: ESTRADIOL 1 MG TAB PO (09:01)
[2017-04-19] MEDS: DICYCLOMINE 10 MG CAP PO ×2 (09:01→20:17)
[2017-04-19] MEDS: ENOXAPARIN 40 MG/0.4 ML SYRINGE (J1650) SC (09:01)
[2017-04-19] MEDS: LITHIUM CARBONATE 300 MG CAP PO ×2 (09:01→20:17)
[2017-04-19] MEDS: SUCRALFATE 1 GM TAB PO ×4 (09:01→20:17)
[2017-04-19] MEDS: PANTOPRAZOLE 40MG INJ (PROTONIX) (C9113) IV (09:03)
[2017-04-19] MEDS: NORCO, ANEXSIA 5/325MG TABLET (HYDROcodone/ACETAMINOPHEN) PO ×2 (09:03→15:30)
[2017-04-19 12:28] LABS: BEDSIDE GLUCOSE 104 MG/DL (70-105)
[2017-04-19 17:34] LABS: BEDSIDE GLUCOSE 90 MG/DL (70-105)
[2017-04-19] MEDS: PANTOPRAZOLE 40MG TAB (PROTONIX) PO (20:17)
[2017-04-19] MEDS: QUEtiapine FUMARATE 50 MG TAB PO (20:17)
[2017-04-19 23:40] LABS: BEDSIDE GLUCOSE 97 MG/DL (70-105)
[2017-04-20 06:12] LABS: BEDSIDE GLUCOSE 103 MG/DL (70-105)
[2017-04-20] MEDS: NORCO, ANEXSIA 5/325MG TABLET (HYDROcodone/ACETAMINOPHEN) PO ×3 (06:12→19:02)
[2017-04-20] MEDS: HumaLOG INSULIN (NovoLOG) PER UNIT SC ×4 (06:13→23:52)
[2017-04-20] MEDS: ONDANSETRON 4MG/2ML VIAL (J2405) IV ×2 (09:14→21:05)
[2017-04-20] MEDS: ESTRADIOL 1 MG TAB PO (09:14)
[2017-04-20] MEDS: DICYCLOMINE 10 MG CAP PO ×2 (09:14→21:06)
[2017-04-20] MEDS: SUCRALFATE 1 GM TAB PO ×4 (09:14→21:06)
[2017-04-20] MEDS: MONTELUKAST 10 MG TAB PO (09:14)
[2017-04-20] MEDS: PANTOPRAZOLE 40MG TAB (PROTONIX) PO ×2 (09:15→21:06)
[2017-04-20] MEDS: ENOXAPARIN 40 MG/0.4 ML SYRINGE (J1650) SC (09:15)
[2017-04-20] MEDS: LITHIUM CARBONATE 300 MG CAP PO ×2 (09:15→21:06)
[2017-04-20 12:24] LABS: BEDSIDE GLUCOSE 79 MG/DL (70-105)
[2017-04-20 17:09] LABS: BEDSIDE GLUCOSE 108 MG/DL (70-105)
[2017-04-20] MEDS: QUEtiapine FUMARATE 50 MG TAB PO (21:06)
[2017-04-21 00:01] LABS: BEDSIDE GLUCOSE 121 MG/DL (70-105)
[2017-04-21] MEDS: NORCO, ANEXSIA 5/325MG TABLET (HYDROcodone/ACETAMINOPHEN) PO ×2 (06:38→15:05)
[2017-04-21] MEDS: HumaLOG INSULIN (NovoLOG) PER UNIT SC ×2 (06:40→13:28)
[2017-04-21 07:01] LABS: BEDSIDE GLUCOSE 96 MG/DL (70-105)
[2017-04-21] MEDS: LITHIUM CARBONATE 300 MG CAP PO (09:13)
[2017-04-21] MEDS: PANTOPRAZOLE 40MG TAB (PROTONIX) PO (09:13)
[2017-04-21] MEDS: SUCRALFATE 1 GM TAB PO ×2 (09:13→13:27)
[2017-04-21] MEDS: DICYCLOMINE 10 MG CAP PO (09:13)
[2017-04-21] MEDS: MONTELUKAST 10 MG TAB PO (09:13)
[2017-04-21] MEDS: ESTRADIOL 1 MG TAB PO (09:13)
[2017-04-21] MEDS: ENOXAPARIN 40 MG/0.4 ML SYRINGE (J1650) SC (09:14)
[2017-04-21] MEDS: ONDANSETRON 4MG/2ML VIAL (J2405) IV (11:12)
[2017-04-21] MEDS ORDERED: HumaLOG INSULIN (NovoLOG) PER UNIT SC ×2 (12:00→21:00)
[2017-04-21 12:10] LABS: BASO % 0.5 % (0.0-1.0); EOS # 0.2 10^3/uL (0.0-0.50); EOS % 3.2 % (0.0-3.0); HEMATOCRIT 42.5 % (36.0-47.0); HEMOGLOBIN 13.7 g/dl (12.0-16.0); IMMATURE GRANULOCYTE % 0.2 % (0-0); LYMPH # 1.7 10^3/uL (1.5-4.5); LYMPH % 28.6 % (24.0-44.0); MEAN CORPUSCULAR HEMOGLOBIN 27.8 pg (27.0-33.0); MEAN CORPUSCULAR HGB CONC 32.2 g/dl (32.0-36.5); MEAN CORPUSCULAR VOLUME 86.2 fl (80.0-96.0); MONO # 0.6 10^3/uL (0.0-0.8); MONO % 9.1 % (0.0-5.0); NEUTROPHILS # 3.5 10^3/uL (1.8-7.7); NEUTROPHILS % 58.4 % (36.0-66.0); PLATELET COUNT, AUTOMATED 274 10^3/uL (150-450); RED BLOOD COUNT 4.93 10^6/uL (4.00-5.40); RED CELL DISTRIBUTION WIDTH 12.9 % (11.5-14.5)
[2017-04-21 12:30] LABS: ALBUMIN 3.3 GM/DL (3.2-5.2); ALBUMIN/GLOBULIN RATIO 0.89 (1.00-1.93); ALKALINE PHOSPHATASE 85 U/L (45-117); ALT/SGPT 36 U/L (12-78); ANION GAP 4 MEQ/L (8-16); AST/SGOT 24 U/L (7-37); BILIRUBIN,TOTAL 0.3 MG/DL (0.2-1.0); BLOOD UREA NITROGEN 11 MG/DL (7-18); CALCIUM LEVEL 8.9 MG/DL (8.5-10.1); CARBON DIOXIDE LEVEL 26 MEQ/L (21-32); CHLORIDE LEVEL 110 MEQ/L (98-107); CREATININE FOR GFR 0.83 MG/DL (0.55-1.02); GLOMERULAR FILTRATION RATE > 60.0 (>58); GLUCOSE, FASTING 147 MG/DL (70-105); SODIUM LEVEL 140 MEQ/L (136-145)
[2017-04-21 12:34] LABS: BEDSIDE GLUCOSE 121 MG/DL (70-105)
[2017-04-21] MEDS ORDERED: ONDANSETRON 4 MG TAB (S0181) PO (18:00)
== END 2017-04-21 17:30 | disposition home or self-care (01) | DRG 384 ==
LOC: M PED 04-20 11:25 → M ED 23:35 → M ED INP 04-17 06:02 → M MSPAV 04-17 13:50
PROC: 0DB68ZX Excision of Stomach, Via Natural or Artificial Opening Endoscopic, Diagnostic (ICD-10-PCS; principal; 2017-04-18 13:45)
DX: K26.9 Duodenal ulcer, unspecified as acute or chronic, without hemorrhage or perforation (principal); E78.5 Hyperlipidemia, unspecified; F31.9 Bipolar disorder, unspecified; E11.9 Type 2 diabetes mellitus without complications; Z79.899 Other long term (current) drug therapy; I10 Essential (primary) hypertension; K21.9 Gastro-esophageal reflux disease without esophagitis; J45.909 Unspecified asthma, uncomplicated; K58.9 Irritable bowel syndrome, unspecified; E66.01 Morbid (severe) obesity due to excess calories; R00.0 Tachycardia, unspecified; K29.80 Duodenitis without bleeding; Z79.82 Long term (current) use of aspirin

== ENCOUNTER → 2017-04-25 | Outpatient (REF) | payer MEDICARE, MEDICAID ==
[2017-04-25 13:36] LABS: BASO % 0.6 % (0.0-1.0); EOS # 0.1 10^3/uL (0.0-0.50); EOS % 2.1 % (0.0-3.0); HEMATOCRIT 43.8 % (36.0-47.0); HEMOGLOBIN 14.2 g/dl (12.0-16.0); IMMATURE GRANULOCYTE % 0.3 % (0-0); LYMPH # 1.8 10^3/uL (1.5-4.5); MEAN CORPUSCULAR HEMOGLOBIN 27.6 pg (27.0-33.0); MEAN CORPUSCULAR HGB CONC 32.4 g/dl (32.0-36.5); MONO # 0.7 10^3/uL (0.0-0.8); PLATELET COUNT, AUTOMATED 321 10^3/uL (150-450); RED BLOOD COUNT 5.15 10^6/uL (4.00-5.40); RED CELL DISTRIBUTION WIDTH 12.9 % (11.5-14.5); WHITE BLOOD COUNT 6.6 10^3/uL (4.0-10.0)
[2017-04-25 14:06] LABS: ALBUMIN 3.6 GM/DL (3.2-5.2); ALBUMIN/GLOBULIN RATIO 0.95 (1.00-1.93); ALKALINE PHOSPHATASE 88 U/L (45-117); ALT/SGPT 55 U/L (12-78); ANION GAP 8 MEQ/L (8-16); AST/SGOT 25 U/L (7-37); BILIRUBIN,TOTAL 0.5 MG/DL (0.2-1.0); BLOOD UREA NITROGEN 14 MG/DL (7-18); CALCIUM LEVEL 9.3 MG/DL (8.5-10.1); CARBON DIOXIDE LEVEL 29 MEQ/L (21-32); CHLORIDE LEVEL 105 MEQ/L (98-107); CREATININE FOR GFR 0.69 MG/DL (0.55-1.02); GLOMERULAR FILTRATION RATE > 60.0 (>58); GLUCOSE, FASTING 87 MG/DL (70-105); POTASSIUM SERUM 4.1 MEQ/L (3.5-5.1); SODIUM LEVEL 142 MEQ/L (136-145); TOTAL PROTEIN 7.4 GM/DL (6.4-8.2)
== END ==
LOC: M SFHCADAM 09:48
DX: K26.9 Duodenal ulcer, unspecified as acute or chronic, without hemorrhage or perforation (principal); Z23 Encounter for immunization
CPT/HCPCS: 80053

== ENCOUNTER 2017-05-01 15:08 | Emergency (ER) | payer MEDICARE, MEDICAID | END 2017-05-01 16:14 | disposition left against medical advice (07) | LOC: M ED 15:08 | DX: Z53.29 Procedure and treatment not carried out because of patient's decision for other reasons (principal) ==

== ENCOUNTER 2017-05-02 10:37 | Emergency (ER) | payer MEDICARE, MEDICAID ==
[2017-05-02 12:00] LABS: BASO % 0.4 % (0.0-1.0); EOS # 0.2 10^3/uL (0.0-0.50); EOS % 2.1 % (0.0-3.0); HEMATOCRIT 42.3 % (36.0-47.0); HEMOGLOBIN 14.1 g/dl (12.0-16.0); IMMATURE GRANULOCYTE % 0.3 % (0-0); LYMPH % 28.6 % (24.0-44.0); MEAN CORPUSCULAR HEMOGLOBIN 27.5 pg (27.0-33.0); MEAN CORPUSCULAR HGB CONC 33.3 g/dl (32.0-36.5); MEAN CORPUSCULAR VOLUME 82.5 fl (80.0-96.0); MONO # 0.6 10^3/uL (0.0-0.8); MONO % 8.9 % (0.0-5.0); NEUTROPHILS # 4.2 10^3/uL (1.8-7.7); NEUTROPHILS % 59.7 % (36.0-66.0); PLATELET COUNT, AUTOMATED 340 10^3/uL (150-450); RED BLOOD COUNT 5.13 10^6/uL (4.00-5.40); RED CELL DISTRIBUTION WIDTH 12.8 % (11.5-14.5); WHITE BLOOD COUNT 7.1 10^3/uL (4.0-10.0)
[2017-05-02] MEDS: ONDANSETRON 4MG/2ML VIAL (J2405) IV (12:05)
[2017-05-02] MEDS: NS 1,000 ML IV (12:07)
[2017-05-02] MEDS: MORPHINE 4 MG/ML 1ML SYRINGE IV ×2 (12:10→14:35)
[2017-05-02 12:14] LABS: KETONE, URINE AUTO RFX NEGATIVE (NEGATIVE); LEUKOCYTE ESTERASE UR AUTO RFX NEGATIVE (NEGATIVE); MUCUS, URINE RFX SMALL (NEGATIVE); NITRITE, URINE AUTO RFX NEGATIVE (NEGATIVE); RBC, URINE AUTO RFX 0 /HPF (0-3); SPECIFIC GRAVITY UR AUTO RFX 1.006 (1.002-1.035); SQUAM EPITHELIAL CELL UR AURFX 6 /HPF (0-6); WBC, URINE AUTO RFX 0 /HPF (0-3)
[2017-05-02 12:31] LABS: ALBUMIN 3.7 GM/DL (3.2-5.2); ALBUMIN/GLOBULIN RATIO 0.86 (1.00-1.93); ALKALINE PHOSPHATASE 95 U/L (45-117); ALT/SGPT 53 U/L (12-78); AMYLASE 39 U/L (25-115); ANION GAP 7 MEQ/L (8-16); AST/SGOT 27 U/L (7-37); BILIRUBIN,DIRECT 0.1 MG/DL (0.0-0.2); BILIRUBIN,TOTAL 0.6 MG/DL (0.2-1.0); BLOOD UREA NITROGEN 11 MG/DL (7-18); CALCIUM LEVEL 8.8 MG/DL (8.5-10.1); CARBON DIOXIDE LEVEL 27 MEQ/L (21-32); CHLORIDE LEVEL 105 MEQ/L (98-107); CPK CREATINE PHOSPHOKINASE 51 U/L (26-192); CREATININE FOR GFR 0.77 MG/DL (0.55-1.02); GLOMERULAR FILTRATION RATE > 60.0 (>58); GLUCOSE, FASTING 95 MG/DL (70-100); LIPASE 99 U/L (73-393); MB/CK RELATIVE INDEX 1.96 (< OR =4); POTASSIUM SERUM 3.1 MEQ/L (3.5-5.1); SODIUM LEVEL 139 MEQ/L (136-145); TROPONIN I < 0.02 NG/ML (< 0.10)
[2017-05-02] MEDS: METOCLOPRAMIDE INJ 10MG/2ML VIAL (J2765) IV (14:37)
[2017-05-02] MEDS: GI COCKTAIL 50ML BTL(HYOSCYAMINE/MAALOX/LIDOCAINE VISCOUS)(1:3:1) PO (14:59)
[2017-05-02] MEDS: POTASSIUM CHLORIDE 10 MEQ SR TABLET PO (16:16)
== END 2017-05-02 16:44 | disposition home or self-care (01) ==
LOC: M ED 10:37
DX: E87.6 Hypokalemia (principal); R11.2 Nausea with vomiting, unspecified; R19.7 Diarrhea, unspecified; G89.29 Other chronic pain; R10.9 Unspecified abdominal pain; E11.9 Type 2 diabetes mellitus without complications; I10 Essential (primary) hypertension; J45.909 Unspecified asthma, uncomplicated; F31.9 Bipolar disorder, unspecified; K58.9 Irritable bowel syndrome, unspecified; K27.9 Peptic ulcer, site unspecified, unspecified as acute or chronic, without hemorrhage or perforation; Z86.19 Personal history of other infectious and parasitic diseases; Z87.09 Personal history of other diseases of the respiratory system; Z87.19 Personal history of other diseases of the digestive system; Z79.899 Other long term (current) drug therapy; Z79.84 Long term (current) use of oral hypoglycemic drugs; Z79.890 Hormone replacement therapy; Z88.8 Allergy status to other drugs, medicaments and biological substances
CPT/HCPCS: J2405

== ENCOUNTER → 2017-07-01 | Outpatient (REF) | payer MEDICARE, MEDICAID | LOC: M SFHCADAM 15:20 | DX: R19.7 Diarrhea, unspecified (principal) | CPT/HCPCS: 87507 ==

== ENCOUNTER → 2017-08-28 | Outpatient (REF) | payer MEDICARE, MEDICAID ==
[2017-08-28 13:38] LABS: ALBUMIN 3.2 GM/DL (3.2-5.2); ANION GAP 6 MEQ/L (8-16); BLOOD UREA NITROGEN 23 MG/DL (7-18); CALCIUM LEVEL 8.7 MG/DL (8.5-10.1); CARBON DIOXIDE LEVEL 25 MEQ/L (21-32); CHLORIDE LEVEL 112 MEQ/L (98-107); CREATININE FOR GFR 0.71 MG/DL (0.55-1.30); GLOMERULAR FILTRATION RATE > 60.0 (>58); GLUCOSE, FASTING 106 MG/DL (70-100); PHOSPHORUS LEVEL 2.6 MG/DL (2.5-4.9); POTASSIUM SERUM 4.7 MEQ/L (3.5-5.1); SODIUM LEVEL 143 MEQ/L (136-145)
[2017-08-28 13:39] LABS: LITHIUM LEVEL < 0.20 MEQ/L (0.60-1.20)
== END ==
LOC: M LAB REF 12:28
DX: Z79.899 Other long term (current) drug therapy (principal)
CPT/HCPCS: 80178

== ENCOUNTER → 2017-09-04 | Outpatient (CLI) | payer MEDICARE, MEDICAID | LOC: M WHC 14:49 | DX: Z12.31 Encounter for screening mammogram for malignant neoplasm of breast (principal); Z78.0 Asymptomatic menopausal state; Z79.890 Hormone replacement therapy | CPT/HCPCS: 77067 ==

== ENCOUNTER 2017-10-29 10:42 | Day surgery (SDC) | payer MEDICARE, MEDICAID ==
[2017-10-29] MEDS: NS 1,000 ML IV (10:45)
[2017-10-29] MEDS ORDERED: LIDOCAINE 2% INJ 100 MG/5 ML SDV (FOR ANES.) As Ordered ×2 (11:27)
[2017-10-29] MEDS ORDERED: fentaNYL 100 MCG/2 ML INJECTION (J3010) As Ordered (11:31)
[2017-10-29] MEDS ORDERED: PROPOFOL 200 MG/20 ML VIAL As Ordered (11:32)
== END 2017-10-29 12:00 | disposition home or self-care (01) ==
LOC: M OPP 10:42
DX: K27.9 Peptic ulcer, site unspecified, unspecified as acute or chronic, without hemorrhage or perforation (principal); E11.9 Type 2 diabetes mellitus without complications; J45.909 Unspecified asthma, uncomplicated; K21.9 Gastro-esophageal reflux disease without esophagitis; F31.9 Bipolar disorder, unspecified; F41.9 Anxiety disorder, unspecified; Z79.84 Long term (current) use of oral hypoglycemic drugs; Z79.899 Other long term (current) drug therapy; Z88.0 Allergy status to penicillin; Z90.49 Acquired absence of other specified parts of digestive tract; Z90.710 Acquired absence of both cervix and uterus
CPT/HCPCS: 43235

== ENCOUNTER 2017-12-09 13:19 | Emergency (ER) | payer MEDICARE, MEDICAID ==
[2017-12-09] MEDS: IBUPROFEN 600 MG TAB PO (15:40)
== END 2017-12-09 16:51 | disposition home or self-care (01) ==
LOC: M ED 13:19
DX: M77.31 Calcaneal spur, right foot (principal); I25.10 Atherosclerotic heart disease of native coronary artery without angina pectoris; K21.9 Gastro-esophageal reflux disease without esophagitis; F31.9 Bipolar disorder, unspecified; Z87.442 Personal history of urinary calculi; Z79.899 Other long term (current) drug therapy
CPT/HCPCS: 73650

== ENCOUNTER → 2018-01-20 | Outpatient (REF) | payer MEDICARE, MEDICAID ==
[2018-01-20 13:45] LABS: ALBUMIN 3.6 GM/DL (3.2-5.2); ANION GAP 7 MEQ/L (8-16); BLOOD UREA NITROGEN 12 MG/DL (7-18); CALCIUM LEVEL 9.2 MG/DL (8.5-10.1); CARBON DIOXIDE LEVEL 27 MEQ/L (21-32); CHLORIDE LEVEL 108 MEQ/L (98-107); CREATININE FOR GFR 0.68 MG/DL (0.55-1.30); GLOMERULAR FILTRATION RATE > 60.0 (>58); GLUCOSE, FASTING 107 MG/DL (70-100); LITHIUM LEVEL < 0.20 MEQ/L (0.60-1.20); PHOSPHORUS LEVEL 2.8 MG/DL (2.5-4.9); POTASSIUM SERUM 4.5 MEQ/L (3.5-5.1); SODIUM LEVEL 142 MEQ/L (136-145)
== END ==
LOC: M SFHCADAM 08:22
DX: K52.9 Noninfective gastroenteritis and colitis, unspecified (principal)
CPT/HCPCS: 80178

== ENCOUNTER 2018-01-23 12:25 | Emergency (ER) | payer MEDICARE, MEDICAID ==
[2018-01-23 13:41] LABS: BASO % 0.3 % (0.0-1.0); EOS # 0.1 10^3/uL (0.0-0.50); EOS % 1.3 % (0.0-3.0); HEMATOCRIT 47.4 % (36.0-47.0); HEMOGLOBIN 15.4 g/dl (12.0-15.5); IMMATURE GRANULOCYTE % 0.2 % (0-3.0); LYMPH # 1.3 10^3/uL (1.5-4.5); LYMPH % 20.5 % (24.0-44.0); MEAN CORPUSCULAR HEMOGLOBIN 27.6 pg (27.0-33.0); MEAN CORPUSCULAR HGB CONC 32.5 g/dl (32.0-36.5); MEAN CORPUSCULAR VOLUME 84.9 fl (80.0-96.0); MONO # 0.5 10^3/uL (0.0-0.8); MONO % 7.5 % (0.0-5.0); NEUTROPHILS # 4.5 10^3/uL (1.8-7.7); NEUTROPHILS % 70.2 % (36.0-66.0); PLATELET COUNT, AUTOMATED 296 10^3/uL (150-450); RED BLOOD COUNT 5.58 10^6/uL (4.00-5.40); RED CELL DISTRIBUTION WIDTH 12.9 % (11.5-14.5); WHITE BLOOD COUNT 6.4 10^3/uL (4.0-10.0)
[2018-01-23 14:05] LABS: BLOOD UREA NITROGEN 14 MG/DL (7-18); CREATININE FOR GFR 0.68 MG/DL (0.55-1.30); GLUCOSE, FASTING 116 MG/DL (70-100)
[2018-01-23 14:06] LABS: ALBUMIN 3.5 GM/DL (3.2-5.2); ALBUMIN/GLOBULIN RATIO 0.78 (1.00-1.93); ALKALINE PHOSPHATASE 103 U/L (45-117); ALT/SGPT 62 U/L (12-78); AMYLASE 44 U/L (25-115); ANION GAP 10 MEQ/L (8-16); AST/SGOT 36 U/L (7-37); BILIRUBIN,DIRECT < 0.1 MG/DL (0.0-0.2); BILIRUBIN,TOTAL 0.4 MG/DL (0.2-1.0); CALCIUM LEVEL 8.7 MG/DL (8.5-10.1); CARBON DIOXIDE LEVEL 25 MEQ/L (21-32); CHLORIDE LEVEL 106 MEQ/L (98-107); CK-MB VALUE MASS < 1.0 NG/ML (<3.6); CPK CREATINE PHOSPHOKINASE 37 U/L (26-192); GLOMERULAR FILTRATION RATE > 60.0 (>58); LIPASE 135 U/L (73-393); POTASSIUM SERUM 3.9 MEQ/L (3.5-5.1); SODIUM LEVEL 141 MEQ/L (136-145); TROPONIN I < 0.02 NG/ML (< 0.10)
[2018-01-23 14:07] LABS: KETONE, URINE AUTO RFX TRACE mg/dL (NEGATIVE); LEUKOCYTE ESTERASE UR AUTO RFX NEGATIVE (NEGATIVE); MUCUS, URINE RFX SMALL (NEGATIVE); NITRITE, URINE AUTO RFX NEGATIVE (NEGATIVE); RBC, URINE AUTO RFX 1 /HPF (0-3); SPECIFIC GRAVITY UR AUTO RFX 1.024 (1.002-1.035); SQUAM EPITHELIAL CELL UR AURFX 2 /HPF (0-6); WBC, URINE AUTO RFX 1 /HPF (0-3)
[2018-01-23 14:11] LABS: INR 0.92; PROTHROMBIN TIME 12.5 SECONDS (12.1-14.4)
[2018-01-23 14:12] LABS: PARTIAL THROMBOPLASTIN TIME 27.9 SECONDS (25.4-37.6)
[2018-01-23] MEDS: MORPHINE 2 MG/ML 1ML SYRINGE (J2270) IV (14:32)
[2018-01-23] MEDS: ONDANSETRON 4MG/2ML VIAL (J2405) IV (14:33)
[2018-01-23] MEDS: GASTROGRAFIN SOLUTION 30ML PO ×2 (14:33→16:07)
[2018-01-23] MEDS: PANTOPRAZOLE 40MG INJ (PROTONIX) (C9113) IV (14:33)
[2018-01-23 14:38] LABS: LACTIC ACID SEPSIS PROTOCOL 0.9 MMOL/L (0.4-2.0)
[2018-01-23] MEDS ORDERED: ISOVUE-370 76% 100ML VIAL (Q9967) As Ordered (15:24)
[2018-01-23] MEDS: NS 500 ML IV (16:08)
[2018-01-23] MEDS: PROMETHAZINE INJ 25 MG/ML VIAL (J2550) IV (16:12)
== END 2018-01-23 18:20 | disposition home or self-care (01) ==
LOC: M ED 12:25
DX: A08.4 Viral intestinal infection, unspecified (principal); K21.9 Gastro-esophageal reflux disease without esophagitis; F31.9 Bipolar disorder, unspecified; J45.909 Unspecified asthma, uncomplicated; K58.0 Irritable bowel syndrome with diarrhea; Z79.899 Other long term (current) drug therapy; Z79.84 Long term (current) use of oral hypoglycemic drugs; Z79.890 Hormone replacement therapy
CPT/HCPCS: C9113

== ENCOUNTER → 2018-03-04 | Outpatient (REF) | payer MEDICARE, MEDICAID ==
[2018-03-04 12:44] LABS: BASO % 0.3 % (0.0-1.0); EOS # 0.2 10^3/uL (0.0-0.50); HEMATOCRIT 45.8 % (36.0-47.0); IMMATURE GRANULOCYTE % 0.3 % (0-3.0); LYMPH # 1.9 10^3/uL (1.5-4.5); LYMPH % 24.9 % (24.0-44.0); MEAN CORPUSCULAR HEMOGLOBIN 28.2 pg (27.0-33.0); MEAN CORPUSCULAR HGB CONC 32.8 g/dl (32.0-36.5); MEAN CORPUSCULAR VOLUME 86.1 fl (80.0-96.0); MONO # 0.6 10^3/uL (0.0-0.8); MONO % 7.5 % (0.0-5.0); PLATELET COUNT, AUTOMATED 329 10^3/uL (150-450); RED BLOOD COUNT 5.32 10^6/uL (4.00-5.40); RED CELL DISTRIBUTION WIDTH 12.9 % (11.5-14.5); WHITE BLOOD COUNT 7.6 10^3/uL (4.0-10.0)
[2018-03-04 13:20] LABS: ALBUMIN 3.7 GM/DL (3.2-5.2); ALBUMIN/GLOBULIN RATIO 0.97 (1.00-1.93); ALKALINE PHOSPHATASE 100 U/L (45-117); ALT/SGPT 45 U/L (12-78); ANION GAP 7 MEQ/L (8-16); AST/SGOT 21 U/L (7-37); BILIRUBIN,TOTAL 0.4 MG/DL (0.2-1.0); BLOOD UREA NITROGEN 15 MG/DL (7-18); CALCIUM LEVEL 9.6 MG/DL (8.5-10.1); CARBON DIOXIDE LEVEL 29 MEQ/L (21-32); CHLORIDE LEVEL 102 MEQ/L (98-107); CHOLESTEROL LEVEL 289 MG/DL (<200); CHOLESTEROL RISK RATIO 6.282 (<5); CREATININE FOR GFR 0.86 MG/DL (0.55-1.30); GLOMERULAR FILTRATION RATE > 60.0 (>58); GLUCOSE, FASTING 157 MG/DL (70-100); HDL CHOLESTEROL 46 MG/DL (>40); LDL CHOLESTEROL 168 MG/DL (<100); MAGNESIUM LEVEL 1.9 MG/DL (1.8-2.4); NON-HDL-C 243 MG/DL; POTASSIUM SERUM 3.7 MEQ/L (3.5-5.1); SODIUM LEVEL 138 MEQ/L (136-145); TOTAL PROTEIN 7.5 GM/DL (6.4-8.2); TRIGLYCERIDES LEVEL 377 MG/DL (<150)
[2018-03-04 14:05] LABS: ESTIMATED AVERAGE GLUCOSE 120 MG/DL (60-110); HEMOGLOBIN A1c 5.8 %
== END ==
LOC: M SFHCADAM 08:56
DX: I10 Essential (primary) hypertension (principal); E11.9 Type 2 diabetes mellitus without complications; G47.33 Obstructive sleep apnea (adult) (pediatric); F33.2 Major depressive disorder, recurrent severe without psychotic features
CPT/HCPCS: 80178

== ENCOUNTER → 2018-03-04 | Outpatient (CLI) | payer MEDICARE, MEDICAID | LOC: M ADAMS 10:08 | DX: I10 Essential (primary) hypertension (principal); E11.9 Type 2 diabetes mellitus without complications; G47.33 Obstructive sleep apnea (adult) (pediatric); F33.2 Major depressive disorder, recurrent severe without psychotic features ==

== ENCOUNTER 2018-03-23 14:46 | Emergency (ER) | payer MEDICARE, MEDICAID ==
[2018-03-23] MEDS: ACETAMINOPHEN 325 MG TAB PO (15:00)
[2018-03-23] MEDS ORDERED: ACETAMINOPHEN 325 MG TAB As Ordered (15:02)
[2018-03-23 15:48] LABS: INFLUENZA A AMPLIFICATION NEGATIVE (NEGATIVE); INFLUENZA B AMPLIFICATION NEGATIVE (NEGATIVE)
[2018-03-23] MEDS: ALBUTEROL SULFATE 2.5 MG/0.5 ML INH NEB SOLN NEB (17:13)
== END 2018-03-23 17:34 | disposition home or self-care (01) ==
LOC: M ED 14:46
DX: B34.9 Viral infection, unspecified (principal); E11.9 Type 2 diabetes mellitus without complications; I10 Essential (primary) hypertension; J45.909 Unspecified asthma, uncomplicated; E78.5 Hyperlipidemia, unspecified; F31.9 Bipolar disorder, unspecified; K21.9 Gastro-esophageal reflux disease without esophagitis; Z79.899 Other long term (current) drug therapy; Z79.84 Long term (current) use of oral hypoglycemic drugs; Z88.8 Allergy status to other drugs, medicaments and biological substances
CPT/HCPCS: 71046

== ENCOUNTER 2018-06-27 16:11 | Emergency (ER) | payer MEDICARE, MEDICAID ==
[~2018-06-27 16:11] MED LIST changes: -/DILT60TAB PO; -/ESOM40CA; +ASPI81TAEC PO; +BENT20TA PO; +DICY10CA13 PO; +DILT1TAB12 PO; +FURO20TA2 PO; +HYDROCO/APAP; +IBUP-1022 PO; +IBUP80TA PO; +K-TA10TA PO; +MOTR200T44 PO; +NAPR-50 PO; -NAPR500T PO; +NEXI1CAP3; +NORC1TAB4 PO; +ONDA4TAB5 PO; +PANT40TA3 PO; +PHEN1SUP6 PR; +PROM25TA12 PO; +QUET5TAB; +SUCR1TA PO; +ZOFR4TAB14 PO
[2018-06-27] MEDS ORDERED: MORPHINE 2 MG/ML 1ML SYRINGE (J2270) IV ONE (16:45)
[2018-06-27 17:18] LABS: BASO % 0.5 % (0.0-1.0); EOS # 0.1 10^3/uL (0.0-0.50); EOS % 1.7 % (0.0-3.0); HEMATOCRIT 44.1 % (36.0-47.0); HEMOGLOBIN 14.9 g/dl (12.0-15.5); LYMPH # 2.2 10^3/uL (1.5-4.5); LYMPH % 28.2 % (24.0-44.0); MEAN CORPUSCULAR HEMOGLOBIN 28.1 pg (27.0-33.0); MEAN CORPUSCULAR HGB CONC 33.8 g/dl (32.0-36.5); MEAN CORPUSCULAR VOLUME 83.1 fl (80.0-96.0); MONO # 0.8 10^3/uL (0.0-0.8); MONO % 10.6 % (0.0-5.0); NEUTROPHILS # 4.6 10^3/uL (1.8-7.7); NEUTROPHILS % 58.7 % (36.0-66.0); PLATELET COUNT, AUTOMATED 339 10^3/uL (150-450); RED BLOOD COUNT 5.31 10^6/uL (4.00-5.40); WHITE BLOOD COUNT 7.8 10^3/uL (4.0-10.0)
[2018-06-27] MEDS ORDERED: MULTCAP PO (17:25)
[2018-06-27] MEDS ORDERED: PROTPAK PO (17:25)
[2018-06-27] MEDS ORDERED: ZYRTTAB8 PO (17:25)
[2018-06-27] MEDS ORDERED: SUCR1SUS PO (17:25)
[2018-06-27 17:50] LABS: ALBUMIN 3.6 GM/DL (3.2-5.2); ALT/SGPT 47 U/L (12-78); BILIRUBIN,DIRECT < 0.1 MG/DL (0.0-0.2); BILIRUBIN,TOTAL 0.3 MG/DL (0.2-1.0); BLOOD UREA NITROGEN 15 MG/DL (7-18); CALCIUM LEVEL 9.4 MG/DL (8.5-10.1); CARBON DIOXIDE LEVEL 27 MEQ/L (21-32); CHLORIDE LEVEL 105 MEQ/L (98-107); CREATININE FOR GFR 0.73 MG/DL (0.55-1.30); GLOMERULAR FILTRATION RATE > 60.0 (>58); GLUCOSE, FASTING 86 MG/DL (70-100); LIPASE 100 U/L (73-393); POTASSIUM SERUM 3.7 MEQ/L (3.5-5.1); SODIUM LEVEL 140 MEQ/L (136-145); TOTAL PROTEIN 7.6 GM/DL (6.4-8.2)
[2018-06-27] MEDS ORDERED: ISOVUE-370 76% 125ML VIAL (Q9967 PER ML) As Ordered ONE (17:57)
[2018-06-27] MEDS ORDERED: KETOROLAC 30 MG/ML VIAL (J1885) IV ONE (18:30)
--- NOTE | 2018-06-27 18:42 | REPVR ---
EXAM: CT Abdomen and Pelvis With Contrast EXAM DATE/TIME: 06/27/2018 6:11 PM CLINICAL HISTORY: 42 years old, female; Pain; Abdominal pain; Localized; Right lower quadrant (rlq); Additional info: Rlq abdominal pain, sbo v appy TECHNIQUE: Imaging protocol: Axial computed tomography images of the abdomen and pelvis with intravenous contrast. Coronal and sagittal reformatted images were created and reviewed. Radiation optimization: All CT scans at this facility use at least one of these dose optimization techniques: automated exposure control; mA and/or kV adjustment per patient size (includes targeted exams where dose is matched to clinical indication); or iterative reconstruction. Contrast material: isovue 370 Contrast volume: 100 ml Contrast route: iv COMPARISON: CT ABD/PEL W/IV ORAL CONTRAS 01/23/2018 3:21 PM FINDINGS: Lower thorax: Infiltrate left lung base likely atelectatic. Clinical correlation recommended to exclude infection. ABDOMEN: Liver: There is a diffuse decrease in hepatic parenchymal density, consistent with fatty infiltration. Gallbladder and bile ducts: There has been a cholecystectomy. Pancreas: Normal. No ductal dilation. Spleen: Normal. No splenomegaly. Adrenals: Normal. No mass. Kidneys and ureters: Normal. No hydronephrosis. Stomach and bowel: Normal. No obstruction. No mucosal thickening. Appendix: Normal appendix. PELVIS: Bladder: Diffuse thickening of the bladder wall likely related to incomplete distention. Clinical correlation recommended to exclude cystitis. Reproductive: There has been a hysterectomy. ABDOMEN and PELVIS: Intraperitoneal space: Normal. No free air. No significant fluid collection. Bones/joints: Schmorl's node superior endplate of L1. Soft tissues: Ventral abdominal wall hernia located above the umbilicus. Otherwise unremarkable. Vasculature: Normal. No abdominal aortic aneurysm. Lymph nodes: Normal. No enlarged lymph nodes. IMPRESSION: 1. There is a diffuse decrease in hepatic parenchymal density, consistent with fatty infiltration. 2. There has been a cholecystectomy. 3. Normal appendix. 4. There has been a hysterectomy. 5. Diffuse thickening of the bladder wall likely related to incomplete distention. Clinical correlation recommended to exclude cystitis. Electronically signed by: Wero Leon On 06/27/2018 18:42:37 PM
[2018-06-27] MEDS ORDERED: CIPR500T3 PO (18:48)
[2018-06-27] MEDS ORDERED: NAPR-885 PO (18:49)
[2018-06-27] MEDS ORDERED: cefTRIAXone SOD 1 GM in D5W MINI-BAG PLUS 50 ML IV ONE (19:00)
[2018-06-27 19:26] VITALS: BP 126/59
== END 2018-06-27 19:36 | disposition home or self-care (01) ==
LOC: M ED 16:11 → EDSEX 16:11 → EDBD 16:11 → M ED 19:36
DX: N12 Tubulo-interstitial nephritis, not specified as acute or chronic (principal); K76.0 Fatty (change of) liver, not elsewhere classified; E11.9 Type 2 diabetes mellitus without complications; J45.909 Unspecified asthma, uncomplicated; I10 Essential (primary) hypertension; K21.9 Gastro-esophageal reflux disease without esophagitis; K58.9 Irritable bowel syndrome, unspecified; G47.33 Obstructive sleep apnea (adult) (pediatric); Z79.899 Other long term (current) drug therapy; Z79.84 Long term (current) use of oral hypoglycemic drugs; Z88.8 Allergy status to other drugs, medicaments and biological substances
CPT/HCPCS: 74177; 80048; 80076; 81001; 83605; 83690; 85025; 87040; 87088; 87186; 93041; 96365; 96375; 99285; J0696; J1885; J2270; Q9967

== ENCOUNTER → 2018-08-10 | Outpatient (CLI) | payer MEDICARE, MEDICAID ==
[~2018-08-10] MED LIST changes: -ASPI1TAB PO; +ASPI81TA26 PO; +CIPR500T3 PO; +MULTCAP PO; -NAPR-50 PO; +NAPR-837 PO; +NAPR-885 PO; -NORC1TAB4 PO; +NORC1TAB7 PO; +PROTPAK PO; +SUCR1SUS PO; +ZYRTTAB8 PO
--- NOTE | 2018-08-11 03:04 | REP ---
Clinical: Back pain. Technique: AP, lateral, coned-down views of the lumbosacral spine. Comparison: 05/29/2010. Findings: There is a stable mild compression deformity involving L1 along with mild chronic levoconvex scoliosis through the lumbar spine centered at approximately L2-3 level. Remainder examination appears normal for age. Impression: Mild L1 compression deformity stable compared to 2010. Mild levoconvex scoliosis. Electronically Signed by Hiram Leal MD 08/11/2018 02:56 A
--- NOTE | 2018-08-11 03:07 | REP ---
Clinical: Neck pain. Technique: AP, lateral, bilateral oblique, flexion/extension, and open-mouth views of the cervical spine. Comparison: 06/17/2012. Findings: Minimal age-related changes are appreciated along with very subtle disc space narrowing at C5-6 which appears similar to prior examination. No acute fracture / compression injury. Alignment and lordosis maintained. C1-C2 articulation and odontoid process are normal. Oblique views demonstrate patent neural foramen. Impression: Mild generalized age-related changes and mild disc space narrowing at C5-6. Electronically Signed by Hiram Leal MD 08/11/2018 02:58 A
== END ==
LOC: M ADAMS 14:30
PROVIDERS: ATTEND Family Medicine
DX: M50.322 Other cervical disc degeneration at C5-C6 level (principal); M51.36 Other intervertebral disc degeneration, lumbar region; M41.87 Other forms of scoliosis, lumbosacral region; M47.20 Other spondylosis with radiculopathy, site unspecified

== ENCOUNTER 2018-09-22 20:58 | Emergency (ER) | payer MEDICARE, MEDICAID ==
[~2018-09-22] VITALS: Ht 165.1 cm; Wt 90.9 kg
[2018-09-22 21:37] LABS: BASO % 0.5 % (0.0-1.0); EOS # 0.1 10^3/uL (0.0-0.50); EOS % 1.3 % (0.0-3.0); HEMATOCRIT 41.4 % (36.0-47.0); HEMOGLOBIN 13.7 g/dl (12.0-15.5); LYMPH # 1.7 10^3/uL (1.5-4.5); LYMPH % 20.7 % (24.0-44.0); MEAN CORPUSCULAR HEMOGLOBIN 28.3 pg (27.0-33.0); MEAN CORPUSCULAR HGB CONC 33.1 g/dl (32.0-36.5); MEAN CORPUSCULAR VOLUME 85.5 fl (80.0-96.0); MONO # 0.9 10^3/uL (0.0-0.8); MONO % 10.8 % (0.0-5.0); NEUTROPHILS # 5.5 10^3/uL (1.8-7.7); NEUTROPHILS % 66.5 % (36.0-66.0); PLATELET COUNT, AUTOMATED 265 10^3/uL (150-450); RED BLOOD COUNT 4.84 10^6/uL (4.00-5.40); WHITE BLOOD COUNT 8.3 10^3/uL (4.0-10.0)
[2018-09-22 21:50] LABS: INR 1.02; PROTHROMBIN TIME 13.5 SECONDS (12.1-14.4)
[2018-09-22 21:51] LABS: PARTIAL THROMBOPLASTIN TIME 27.2 SECONDS (25.4-37.6)
[2018-09-22 21:54] LABS: BLOOD UREA NITROGEN 13 MG/DL (7-18); CALCIUM LEVEL 8.6 MG/DL (8.5-10.1); CARBON DIOXIDE LEVEL 27 MEQ/L (21-32); CHLORIDE LEVEL 110 MEQ/L (98-107); CK-MB VALUE MASS < 1.0 NG/ML (<3.6); CPK CREATINE PHOSPHOKINASE 61 U/L (26-192); CREATININE FOR GFR 0.86 MG/DL (0.55-1.30); GLOMERULAR FILTRATION RATE > 60.0 (>58); GLUCOSE, FASTING 94 MG/DL (70-100); MB/CK RELATIVE INDEX 1.64 (< OR =4); POTASSIUM SERUM 3.9 MEQ/L (3.5-5.1); SODIUM LEVEL 143 MEQ/L (136-145); TROPONIN I < 0.02 NG/ML (< 0.10)
[2018-09-22] MEDS ORDERED: ONDANSETRON 4MG/2ML VIAL (J2405) IV ONE (22:30)
[2018-09-22] MEDS ORDERED: NS 1,000 ML IV ONE (22:30)
[2018-09-22 22:38] LABS: ALBUMIN 3.2 GM/DL (3.2-5.2); ALT/SGPT 71 U/L (12-78); BILIRUBIN,DIRECT 0.1 MG/DL (0.0-0.2); BILIRUBIN,TOTAL 0.4 MG/DL (0.2-1.0); LIPASE 104 U/L (73-393)
[2018-09-22] MEDS ORDERED: ISOVUE-370 76% 100ML VIAL (Q9967) As Ordered ONE (22:42)
--- NOTE | 2018-09-22 23:45 | REPVR ---
EXAM: CT Abdomen and Pelvis With Contrast EXAM DATE/TIME: 09/22/2018 10:59 PM CLINICAL HISTORY: 43 years old, female; Abdominal pain; Prior surgery; Additional info: Vomiting TECHNIQUE: Imaging protocol: Axial computed tomography images of the abdomen and pelvis with intravenous contrast. Coronal and sagittal reformatted images were created and reviewed. Radiation optimization: All CT scans at this facility use at least one of these dose optimization techniques: automated exposure control; mA and/or kV adjustment per patient size (includes targeted exams where dose is matched to clinical indication); or iterative reconstruction. Contrast material: ISOVUE 370; Contrast volume: 100 ml; Contrast route: IV; COMPARISON: No relevant prior studies available. FINDINGS: ABDOMEN: Liver: There is a diffuse decrease in hepatic parenchymal density, consistent with fatty infiltration. Gallbladder and bile ducts: There has been a cholecystectomy. Pancreas: Normal. No ductal dilation. Spleen: Normal. No splenomegaly. Adrenals: Normal. No mass. Kidneys and ureters: Normal. No hydronephrosis. Stomach and bowel: Normal. No obstruction. No mucosal thickening. Appendix: No evidence of appendicitis. PELVIS: Bladder: Unremarkable as visualized. Reproductive: There has been a hysterectomy. ABDOMEN and PELVIS: Intraperitoneal space: Normal. No free air. No significant fluid collection. Bones/joints: Age-indeterminate compression deformity of L1. Soft tissues: Unremarkable. Vasculature: Normal. No abdominal aortic aneurysm. Lymph nodes: Normal. No enlarged lymph nodes. IMPRESSION: 1. There is a diffuse decrease in hepatic parenchymal density, consistent with fatty infiltration. 2. There has been a cholecystectomy. 3. There has been a hysterectomy. Electronically signed by: Wero Leon On 09/22/2018 23:45:36 PM
--- NOTE | 2018-09-22 23:49 | REPVR ---
EXAM: CT Angiography Chest With Contrast EXAM DATE/TIME: 09/22/2018 10:59 PM CLINICAL HISTORY: 43 years old, female; Chest pain TECHNIQUE: Imaging protocol: Axial computed tomographic angiography images of the chest with intravenous contrast using CT angiography protocol. Coronal and sagittal reformatted images were created and reviewed. 3D rendering: MIP reconstructed images were created and reviewed. Radiation optimization: All CT scans at this facility use at least one of these dose optimization techniques: automated exposure control; mA and/or kV adjustment per patient size (includes targeted exams where dose is matched to clinical indication); or iterative reconstruction. Contrast material: ISOVUE 370; Contrast volume: 100 ml; Contrast route: IV; COMPARISON: CT ANGIO CHEST 04/17/2017 1:10 AM FINDINGS: Pulmonary arteries: Normal. No pulmonary emboli. Aorta: Unremarkable. No aortic aneurysm. No aortic dissection. Lungs: There is bibasilar compressive atelectasis. Parenchymal infiltrate lingula lobe. Although the finding may represent atelectasis clinical correlation to exclude infection suggested. Pleural space: Unremarkable. No pneumothorax. No pleural effusion. Heart: Unremarkable. No cardiomegaly. No pericardial effusion. Liver: Hepatic steatosis. Lymph nodes: Unremarkable. No enlarged lymph nodes. Bones/joints: Unremarkable. No acute fracture. Soft tissues: Unremarkable. IMPRESSION: Parenchymal infiltrate lingula lobe. Although the finding may represent atelectasis clinical correlation to exclude infection suggested. No pulmonary emboli. No aortic dissection or aneurysm. Electronically signed by: Wero Leon On 09/22/2018 23:49:39 PM
[2018-09-23] MEDS ORDERED: KETOROLAC 30 MG/ML VIAL (J1885) IV ONE
[2018-09-23] MEDS ORDERED: LEVA750T7 PO (00:06)
[2018-09-23] MEDS ORDERED: ZOFR4TAB16 PO (00:06)
[2018-09-23] MEDS ORDERED: LevoFLOXacin 750 MG TABLET PO ONE (00:15)
[2018-09-23 00:46] VITALS: BP 144/87
--- NOTE | 2018-09-23 07:39 | REP ---
PA and lateral chest: Comparison is 03/23/2018. There is an acute infiltrate in the lingula, not present previously. The right lung is clear. Cardiac size is normal. The katy, mediastinum, and skeletal structures are unremarkable. Impression: Acute infiltrate in the lingular segment of the left upper lobe. Electronically Signed by Karthik Wallis MD 09/23/2018 07:31 A
--- NOTE | 2018-09-23 19:23 | ECGEPIP ---
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
== END 2018-09-23 00:49 | disposition home or self-care (01) ==
LOC: M ED 20:58
DX: J18.9 Pneumonia, unspecified organism (principal); R00.0 Tachycardia, unspecified; E11.9 Type 2 diabetes mellitus without complications; E78.5 Hyperlipidemia, unspecified; J45.909 Unspecified asthma, uncomplicated; K21.9 Gastro-esophageal reflux disease without esophagitis; Z79.51 Long term (current) use of inhaled steroids; Z79.84 Long term (current) use of oral hypoglycemic drugs; Z79.899 Other long term (current) drug therapy
CPT/HCPCS: 71046; 71275; 74177; 80048; 80076; 82550; 82553; 83690; 84484; 85025; 85610; 85730; 93005; 96361; 96374; 96375; 99284; J1885; J2405; Q9967

== ENCOUNTER 2018-09-28 15:45 | Emergency (ER) | payer MEDICARE, MEDICAID ==
[~2018-09-28] VITALS: Ht 165.1 cm; Wt 100.9 kg
[~2018-09-28 15:45] MED LIST changes: +LEVA750T7 PO; +ZOFR4TAB16 PO
[2018-09-28 17:08] LABS: BASO % 0.6 % (0.0-1.0); EOS # 0.1 10^3/uL (0.0-0.50); HEMATOCRIT 44.6 % (36.0-47.0); LYMPH % 30.2 % (24.0-44.0); MEAN CORPUSCULAR HEMOGLOBIN 28.7 pg (27.0-33.0); MEAN CORPUSCULAR HGB CONC 33.6 g/dl (32.0-36.5); MEAN CORPUSCULAR VOLUME 85.3 fl (80.0-96.0); MONO # 0.6 10^3/uL (0.0-0.8); MONO % 8.8 % (0.0-5.0); NEUTROPHILS # 3.8 10^3/uL (1.8-7.7); NEUTROPHILS % 58.1 % (36.0-66.0); PLATELET COUNT, AUTOMATED 282 10^3/uL (150-450); RED BLOOD COUNT 5.23 10^6/uL (4.00-5.40); WHITE BLOOD COUNT 6.5 10^3/uL (4.0-10.0)
--- NOTE | 2018-09-28 17:28 | REP ---
Clinical: Cough and dyspnea . Comparison: 09/22/2018 . Technique: PA and lateral. Findings: The mediastinum and cardiac silhouette are normal. The lung wagner are clear and without acute consolidation, effusion, or pneumothorax. The skeletal structures are intact and normal. Previously identified lingular infiltrate has resolved. Impression: 1. No acute cardiopulmonary process. Previous lingular infiltrate has resolved. Electronically Signed by Hiram Leal MD 09/28/2018 05:19 P
[2018-09-28 17:38] LABS: BLOOD UREA NITROGEN 19 MG/DL (7-18); CARBON DIOXIDE LEVEL 28 MEQ/L (21-32); CHLORIDE LEVEL 110 MEQ/L (98-107); CREATININE FOR GFR 0.83 MG/DL (0.55-1.30); GLOMERULAR FILTRATION RATE > 60.0 (>58); GLUCOSE, FASTING 100 MG/DL (70-100); POTASSIUM SERUM 4.1 MEQ/L (3.5-5.1); SODIUM LEVEL 144 MEQ/L (136-145)
[2018-09-28 19:07] VITALS: BP 130/72
== END 2018-09-28 19:08 | disposition home or self-care (01) ==
LOC: M ED 15:45
DX: J04.0 Acute laryngitis (principal); J18.9 Pneumonia, unspecified organism; R06.02 Shortness of breath; E11.9 Type 2 diabetes mellitus without complications; I10 Essential (primary) hypertension; E78.5 Hyperlipidemia, unspecified; J21.9 Acute bronchiolitis, unspecified; J45.909 Unspecified asthma, uncomplicated; E66.01 Morbid (severe) obesity due to excess calories; Z68.37 Body mass index [BMI] 37.0-37.9, adult; Z88.8 Allergy status to other drugs, medicaments and biological substances; Z79.899 Other long term (current) drug therapy; Z79.2 Long term (current) use of antibiotics; Z79.84 Long term (current) use of oral hypoglycemic drugs

== ENCOUNTER → 2018-10-03 | Outpatient (CLI) | payer MEDICARE, MEDICAID ==
[~2018-10-03] MED LIST changes: -OMEP20CA3 PO; +OMEP20CA4 PO
--- NOTE | 2018-10-05 10:53 | REP ---
REASON FOR EXAM: Persistent neck pain times 10 years. COMPARISON EXAM: 10/05/2012 which showed C3-4 through C5-6 cervical spondylosis particularly at C5-6 where minimal spinal cord compression was noted along with a large C5-6 disc protrusion. The craniovertebral junction is unchanged and again seen to be within normal limits. No abnormal signal has developed in the imaged portion of the spinal cord. Vertebral body height and alignment is unchanged. There is loss of disc space height and disc hydrational signal from C2-3 to C5-6 inclusive and essentially unchanged from the prior exam. The marrow signal is within normal limits throughout and unchanged. Once again, there is a broad based annual bulge seen at C3-4 which effaces the ventral subarachnoid space, but is without cord compression status quo. No disc extrusion or foraminal narrowing has developed. At C4-5 there is a broad based annular bulge with a central focal subligamentous disc protrusion which has developed since the last exam. The protruded disc causes focal effacement of the ventral subarachnoid space without cord compression. There is no foraminal stenosis on the right, however, there is mild left foraminal stenosis secondary to degenerative facet uncovertebral joint changes. At C5-6 once again, there is a large broad based annular bulge which flattens and straightens the anterior surface of the spinal cord. This is seen in conjunction with degenerative facet and uncovertebral joint changes bilaterally and again causing right foraminal stenosis status quo. There is now evidence of left foraminal stenosis as well. No extruded disc material is evident. There is no disc herniation, foraminal narrowing, or central canal stenosis at C2-3, C6-7, or C7-T1 levels and there is no change in the appearance of those levels compared to the prior exam. IMPRESSION: Multilevel discogenic changes as described above and once again with particular attention drawn to the C5-6 level and new changes seen at C4-5. Electronically Signed by Guevara Millan DO 10/05/2018 03:27 P
--- NOTE | 2018-10-05 10:59 | REP ---
REASON FOR EXAM: Back pain times 10 years. COMPARISON EXAM: 09/09/2013. The prior examination showed no abnormalities. There is no change in the appearance of vertebral body height or alignment. Once again, there is mild posterior disc space narrowing at all levels status quo. Disc hydrational signal is within normal limits and unchanged. No abnormal signal has developed in the imaged portion of the spinal cord. There has been no significant change from the prior exam. There is no disc herniation, foraminal narrowing, or central canal stenosis at any imaged level. There are unchanged discogenic changes seen at the T12-L1 level. There is disc degeneration status quo. IMPRESSION: No significant change from the prior exam as described above. Electronically Signed by Guevara Millan DO 10/05/2018 03:27 P
== END ==
LOC: M RAD 13:06
PROVIDERS: ATTEND Physician Assistant
DX: M50.21 Other cervical disc displacement, high cervical region (principal); M50.221 Other cervical disc displacement at C4-C5 level; M50.222 Other cervical disc displacement at C5-C6 level; M50.31 Other cervical disc degeneration, high cervical region; M50.322 Other cervical disc degeneration at C5-C6 level; M48.02 Spinal stenosis, cervical region

== ENCOUNTER → 2018-10-24 | Outpatient (REF) | payer MEDICARE, MEDICAID ==
[2018-10-24 17:26] LABS: HEMOGLOBIN A1c 5.7 %
[2018-10-24 19:37] LABS: MALB URINE SIEMENS 9.4 MG/L; MAU/CREAT RATIO 4.7 MCG/MG (0.0-30.0)
[2018-10-24 19:38] LABS: ALBUMIN 3.2 GM/DL (3.2-5.2); ALT/SGPT 36 U/L (12-78); BILIRUBIN,TOTAL 0.4 MG/DL (0.2-1.0); BLOOD UREA NITROGEN 17 MG/DL (7-18); CALCIUM LEVEL 8.9 MG/DL (8.5-10.1); CARBON DIOXIDE LEVEL 27 MEQ/L (21-32); CHLORIDE LEVEL 109 MEQ/L (98-107); CHOLESTEROL LEVEL 161 MG/DL (<200); CHOLESTEROL RISK RATIO 2.981 (<5); GLOMERULAR FILTRATION RATE > 60.0 (>58); GLUCOSE, FASTING 98 MG/DL (70-100); HDL CHOLESTEROL 54 MG/DL (>40); LDL CHOLESTEROL 83 MG/DL (<100); NON-HDL-C 107 MG/DL; POTASSIUM SERUM 4.8 MEQ/L (3.5-5.1); SODIUM LEVEL 145 MEQ/L (136-145); THYROID STIMULATING HORMONE 0.709 uIU/ML (0.358-3.740); TOTAL PROTEIN 6.8 GM/DL (6.4-8.2); TRIGLYCERIDES LEVEL 121 MG/DL (<150)
== END ==
LOC: M SFHCADAM 11:00
PROVIDERS: ATTEND Family Medicine
DX: E78.49 Other hyperlipidemia (principal); E11.9 Type 2 diabetes mellitus without complications; B35.9 Dermatophytosis, unspecified

== ENCOUNTER → 2018-12-25 | Outpatient (CLI) | payer MEDICARE, MEDICAID ==
--- NOTE | 2018-12-26 13:00 | REP ---
PA and lateral chest: Comparison is the chest CT dated 09/22/2018. The infiltrate in the lingula on the comparison CT has resolved. There is a small focal zone of atelectasis versus parenchymal scar in the lingula on the study today. The lung wagner otherwise clear. Cardiac size is normal. The katy, mediastinum, skeletal structures are. Impression: Atelectasis versus parenchymal scar inferiorly in the right lung, otherwise negative PA and lateral chest. Electronically Signed by Karthik Wallis MD 12/26/2018 12:51 P
== END ==
LOC: M ADAMS 15:41
PROVIDERS: ATTEND Family Medicine
DX: R91.8 Other nonspecific abnormal finding of lung field (principal); R06.89 Other abnormalities of breathing; S22.42XA Multiple fractures of ribs, left side, initial encounter for closed fracture; V29.9XXA Motorcycle rider (driver) (passenger) injured in unspecified traffic accident, initial encounter; Y92.9 Unspecified place or not applicable

== ENCOUNTER → 2019-02-22 | Outpatient (REF) | payer MEDICARE ==
[~2019-02-22] MED LIST changes: +OMEP-172 PO; -OMEP20CA4 PO
[2019-02-22 20:27] LABS: ALBUMIN 3.2 GM/DL (3.2-5.2); BILIRUBIN,TOTAL 0.4 MG/DL (0.2-1.0); CALCIUM LEVEL 8.6 MG/DL (8.5-10.1); CREATININE FOR GFR 1.09 MG/DL (0.55-1.30); GLOMERULAR FILTRATION RATE 57.8 (>58); POTASSIUM SERUM 3.6 MEQ/L (3.5-5.1); TOTAL PROTEIN 6.7 GM/DL (6.4-8.2)
== END ==
LOC: M SFHCADAM 16:26
PROVIDERS: ATTEND Family Medicine
DX: E11.9 Type 2 diabetes mellitus without complications (principal)
CPT/HCPCS: 80053; 83036; G0463

== ENCOUNTER → 2019-03-01 | Outpatient (CLI) | payer MEDICARE, MEDICAID ==
[~2019-03-01] MED LIST changes: +ATOR40TA75 PO; +AZIT-12 PO; +CYMB60CA3 PO; +NEUR300C PO; +OXYC15TA76 PO; +PRED20TA PO
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
== END ==
LOC: M PAIN 15:00
PROVIDERS: ATTEND Anesthesiology
DX: M79.18 Myalgia, other site (principal); M54.2 Cervicalgia; G89.29 Other chronic pain; M54.5 Low back pain; M47.814 Spondylosis without myelopathy or radiculopathy, thoracic region; M54.6 Pain in thoracic spine; M47.812 Spondylosis without myelopathy or radiculopathy, cervical region; K21.9 Gastro-esophageal reflux disease without esophagitis; G47.33 Obstructive sleep apnea (adult) (pediatric); E78.00 Pure hypercholesterolemia, unspecified; I10 Essential (primary) hypertension; E11.9 Type 2 diabetes mellitus without complications; Z86.59 Personal history of other mental and behavioral disorders; Z88.5 Allergy status to narcotic agent; Z88.8 Allergy status to other drugs, medicaments and biological substances; E66.01 Morbid (severe) obesity due to excess calories; Z68.41 Body mass index [BMI] 40.0-44.9, adult; Z79.899 Other long term (current) drug therapy

== ENCOUNTER → 2019-03-10 | Outpatient (CLI) | payer MEDICARE, MEDICAID ==
[~2019-03-10] MED LIST changes: -ATOR40TA75 PO; -AZIT-12 PO; -CYMB60CA3 PO; -NEUR300C PO; -OMEP-172 PO; +OMEP20CA4 PO; -OXYC15TA76 PO; -PRED20TA PO
--- NOTE | 2019-03-11 09:06 | REP ---
MRI of the cervical thoracic spine: 03/10/2019. Indication: Cervical thoracic pain. Comparison: 10/03/2018. Technique: Multiplanar short and long TR sequences of the cervical and thoracic spines were performed without IV Gadolinium. Findings: There is straightening of the cervical lordosis. Small interosseous hemangiomas are present within T8 and T9 vertebral bodies. New no abnormal cord signal is present. No worrisome marrow signal is present. Chronic-appearing superior endplate compression fracture of L1 is present without significant loss of craniocaudal height or retropulsion of fracture fragments into the spinal canal. Mild diffuse disc bulging is present at C3/C4 and C4/C5 without significant spinal canal or neural foraminal narrowing. There is a broad-based right paracentral C5/C6 disc protrusion superimposed on a diffuse disc bulge with flattening of the ventral cord particularly on the right. The neural foramen are patent. No thoracic disc herniations or areas of significant thoracic spinal canal / neural foraminal narrowing are present. Impression: Multilevel degenerative sequelae of the cervical thoracic spine most pronounced at C5/C6 on the right. Electronically Signed by Erick Parker DO 03/11/2019 08:58 A
== END ==
LOC: M RAD 15:30
PROVIDERS: ATTEND Anesthesiology
DX: G89.29 Other chronic pain (principal); M47.814 Spondylosis without myelopathy or radiculopathy, thoracic region; M54.6 Pain in thoracic spine; M47.812 Spondylosis without myelopathy or radiculopathy, cervical region; M50.21 Other cervical disc displacement, high cervical region; M50.221 Other cervical disc displacement at C4-C5 level; M50.223 Other cervical disc displacement at C6-C7 level

== ENCOUNTER → 2019-03-26 | Outpatient (CLI) | payer MEDICARE, MEDICAID ==
[~2019-03-26] MED LIST changes: +ATOR40TA75 PO; +AZIT-12 PO; +CYMB60CA3 PO; +NEUR300C PO; +OMEP-172 PO; -OMEP20CA4 PO; +OXYC15TA76 PO; +PRED20TA PO
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
== END ==
LOC: M PAIN 13:45
PROVIDERS: ATTEND Nurse Practitioner Family
DX: M79.18 Myalgia, other site (principal)

== ENCOUNTER → 2019-04-14 | Outpatient (CLI) | payer MEDICARE, MEDICAID ==
[~2019-04-14] MED LIST changes: +BUPIVACAINE HCL 0.25% 30 ML VIAL As Ordered ONE; -OMEP-172 PO; +OMEP1CAP73 PO; +ONDA-83 PO; -ONDA4TAB5 PO; +SUCR1ORA PO; -SUCR1SUS PO; +TRIAMCINOLONE ACETONIDE SUSP 40 MG/ML VIAL (J3301) As Ordered ONE; +diazePAM 5 MG TAB As Ordered ONE; +oxyCODONE 5MG TAB As Ordered ONE
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
== END ==
LOC: M PAIN 13:45
PROVIDERS: ATTEND Anesthesiology
DX: M79.18 Myalgia, other site (principal); K21.9 Gastro-esophageal reflux disease without esophagitis; J45.909 Unspecified asthma, uncomplicated; G47.33 Obstructive sleep apnea (adult) (pediatric); E78.00 Pure hypercholesterolemia, unspecified; I10 Essential (primary) hypertension; Z86.59 Personal history of other mental and behavioral disorders; E11.9 Type 2 diabetes mellitus without complications; Z88.5 Allergy status to narcotic agent; Z88.8 Allergy status to other drugs, medicaments and biological substances; E66.01 Morbid (severe) obesity due to excess calories; Z68.41 Body mass index [BMI] 40.0-44.9, adult; Z79.899 Other long term (current) drug therapy
CPT/HCPCS: 20552; J3301

== ENCOUNTER → 2019-04-28 | Outpatient (CLI) | payer MEDICARE, MEDICAID ==
[~2019-04-28] MED LIST changes: -BUPIVACAINE HCL 0.25% 30 ML VIAL As Ordered ONE; -TRIAMCINOLONE ACETONIDE SUSP 40 MG/ML VIAL (J3301) As Ordered ONE; -diazePAM 5 MG TAB As Ordered ONE; -oxyCODONE 5MG TAB As Ordered ONE
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
== END ==
LOC: M PAIN 13:00
PROVIDERS: ATTEND Nurse Practitioner Family
DX: M79.18 Myalgia, other site (principal); K21.9 Gastro-esophageal reflux disease without esophagitis; J45.909 Unspecified asthma, uncomplicated; G47.33 Obstructive sleep apnea (adult) (pediatric); E78.00 Pure hypercholesterolemia, unspecified; I10 Essential (primary) hypertension; Z86.59 Personal history of other mental and behavioral disorders; E11.9 Type 2 diabetes mellitus without complications; Z88.5 Allergy status to narcotic agent; Z88.8 Allergy status to other drugs, medicaments and biological substances; E66.01 Morbid (severe) obesity due to excess calories; Z68.41 Body mass index [BMI] 40.0-44.9, adult; Z79.899 Other long term (current) drug therapy

== ENCOUNTER 2019-05-12 21:25 | Emergency (ER) | payer MEDICARE, MEDICAID ==
[~2019-05-12] VITALS: Ht 165.1 cm; Wt 107.7 kg
[2019-05-13] MEDS ORDERED: KETOROLAC 60 MG/2 ML VIAL (J1885) IM ONE (00:45)
[2019-05-13 02:28] VITALS: BP 133/75
--- NOTE | 2019-05-13 13:18 | REP ---
The clinical: Pain. Technique: AP, lateral, bilateral oblique views of the right ankle. Findings: Evidence for prior open reduction and fixation involving the medial malleolus. Small old calcification/fragment at the tip of the fibula noted. Associated mild post traumatic/arthritic changes. Lateral view demonstrates small calcaneal heal spur. No obvious acute fracture dislocation. Impression: Arthritic and post traumatic degenerative changes. Evidence for old trauma and fixation. Electronically Signed by Hiram Leal MD 05/13/2019 01:10 P
--- NOTE | 2019-05-13 13:19 | REP ---
Clinical: Trauma. Technique: AP, lateral, bilateral oblique views of the left knee. Findings: The osseous structures and joint spaces are intact and normal. There is no evidence for acute fracture or dislocation. No joint effusion is appreciated. Surrounding soft tissues are unremarkable. No subcutaneous emphysema or radiodense foreign body. Impression: Normal examination. No acute fracture or dislocation. Electronically Signed by Hiram Leal MD 05/13/2019 01:11 P
== END 2019-05-13 02:37 | disposition home or self-care (01) ==
LOC: M ED 21:25
DX: G89.29 Other chronic pain (principal); M54.2 Cervicalgia; M25.562 Pain in left knee; M25.571 Pain in right ankle and joints of right foot; E11.9 Type 2 diabetes mellitus without complications; R51 Headache; J45.909 Unspecified asthma, uncomplicated; K21.9 Gastro-esophageal reflux disease without esophagitis; Z87.442 Personal history of urinary calculi; F41.9 Anxiety disorder, unspecified; F31.89 Other bipolar disorder; Z98.61 Coronary angioplasty status; Z79.899 Other long term (current) drug therapy; Z88.1 Allergy status to other antibiotic agents
CPT/HCPCS: 73564; 73610; 96372; 99283; J1885

== ENCOUNTER 2019-05-24 22:53 | Emergency (ER) | payer MEDICARE, MEDICAID ==
[~2019-05-24] VITALS: Ht 165.1 cm; Wt 108.5 kg
[2019-05-25 00:34] VITALS: BP 136/75
[2019-05-25] MEDS ORDERED: ACETAMINOPHEN 325 MG TAB PO ONE (00:45)
--- NOTE | 2019-05-25 07:47 | REP ---
Clinical: Trauma. Technique: AP, lateral, bilateral oblique views right foot . Findings: The osseous structures and joint spaces are intact and normal. Evidence for prior medial malleolar repair. There is no evidence for acute fracture or dislocation. Surrounding soft tissues are unremarkable. No subcutaneous emphysema or radiodense foreign body. Impression: Age-appropriate right foot series . No acute fracture or dislocation. Electronically Signed by Hiram Leal MD 05/25/2019 07:38 A
== END 2019-05-25 00:41 | disposition home or self-care (01) ==
LOC: M ED 22:53
DX: S90.121A Contusion of right lesser toe(s) without damage to nail, initial encounter (principal); W22.03XA Walked into furniture, initial encounter; Y92.009 Unspecified place in unspecified non-institutional (private) residence as the place of occurrence of the external cause; Y99.8 Other external cause status; E11.9 Type 2 diabetes mellitus without complications; I50.9 Heart failure, unspecified; Z88.8 Allergy status to other drugs, medicaments and biological substances; Z79.899 Other long term (current) drug therapy; F31.9 Bipolar disorder, unspecified; E78.00 Pure hypercholesterolemia, unspecified; I11.0 Hypertensive heart disease with heart failure; J45.909 Unspecified asthma, uncomplicated; K21.9 Gastro-esophageal reflux disease without esophagitis; K58.9 Irritable bowel syndrome, unspecified

== ENCOUNTER → 2019-05-27 | Outpatient (REF) | payer MEDICARE, MEDICAID ==
[2019-05-27 20:08] LABS: HEMOGLOBIN A1c 6.2 %
[2019-05-27 20:24] LABS: MALB URINE SIEMENS 9.3 MG/L; MAU/CREAT RATIO 6.2 MCG/MG (0.0-30.0)
== END ==
LOC: M SFHCADAM 15:52
PROVIDERS: ATTEND Family Medicine
DX: E11.9 Type 2 diabetes mellitus without complications (principal)
CPT/HCPCS: 82043; 83036; G0463

== ENCOUNTER → 2019-08-26 | Outpatient (REF) | payer OTHER, MEDICAID ==
[~2019-08-26] MED LIST changes: +CYCL-707 PO; -CYCL10TA PO; +OXYC-1 PO; -OXYC15TA76 PO
[2019-08-26 13:24] LABS: ALBUMIN 3.2 GM/DL (3.2-5.2); ALT/SGPT 141 U/L (12-78); BILIRUBIN,TOTAL 0.4 MG/DL (0.2-1.0); BLOOD UREA NITROGEN 15 MG/DL (7-18); CARBON DIOXIDE LEVEL 28 MEQ/L (21-32); CHLORIDE LEVEL 107 MEQ/L (98-107); CHOLESTEROL LEVEL 241 MG/DL (<200); CHOLESTEROL RISK RATIO 4.303 (<5); CREATININE FOR GFR 0.64 MG/DL (0.55-1.30); GLOMERULAR FILTRATION RATE > 60.0 (>58); GLUCOSE, FASTING 104 MG/DL (70-100); HDL CHOLESTEROL 56 MG/DL (>40); LDL CHOLESTEROL 148 MG/DL (<100); NON-HDL-C 185 MG/DL; POTASSIUM SERUM 4.2 MEQ/L (3.5-5.1); SODIUM LEVEL 141 MEQ/L (136-145); TOTAL PROTEIN 6.8 GM/DL (6.4-8.2); TRIGLYCERIDES LEVEL 184 MG/DL (<150)
[2019-08-26 13:51] LABS: HEMOGLOBIN A1c 6.4 %
== END ==
LOC: M SFHCADAM 11:00
PROVIDERS: ATTEND Family Medicine
DX: E11.9 Type 2 diabetes mellitus without complications (principal); E78.49 Other hyperlipidemia

== ENCOUNTER 2019-11-16 00:05 | Emergency (ER) | payer OTHER, MEDICAID ==
[~2019-11-16 00:05] MED LIST changes: +PANT40TA29 PO; -PANT40TA3 PO
[2020-01-01 08:03] LABS: BASO % 0.7 % (0.0-1.0); EOS # 0.1 10^3/uL (0.0-0.5); EOS % 1.5 % (0.0-3.0); HEMATOCRIT 45.4 % (36.0-47.0); LYMPH # 1.9 10^3/uL (1.5-5.0); LYMPH % 30.9 % (24.0-44.0); MEAN CORPUSCULAR HEMOGLOBIN 27.8 pg (27.0-33.0); MEAN CORPUSCULAR VOLUME 84.1 fl (80.0-96.0); MONO # 0.6 10^3/uL (0.0-0.8); MONO % 9.5 % (0.0-5.0); NEUTROPHILS # 3.5 10^3/uL (1.5-8.5); NEUTROPHILS % 57.2 % (36.0-66.0); PLATELET COUNT, AUTOMATED 366 10^3/uL (150-450); WHITE BLOOD COUNT 6.1 10^3/uL (4.0-10.0)
[2020-02-04 12:40] LABS: ACETAMINOPHEN LEVEL < 2.0 UG/ML (10.0-30.0); ALBUMIN 3.7 GM/DL (3.2-5.2); ALT/SGPT 88 U/L (12-78); BILIRUBIN,DIRECT < 0.1 MG/DL (0.0-0.2); BILIRUBIN,TOTAL 0.3 MG/DL (0.2-1.0); BLOOD UREA NITROGEN 9 MG/DL (7-18); CARBON DIOXIDE LEVEL 26 MEQ/L (21-32); CHLORIDE LEVEL 111 MEQ/L (98-107); CREATININE FOR GFR 1.02 MG/DL (0.55-1.30); ETHYL ALCOHOL (ETHANOL) 0.107 % (0.000-0.010); GLOMERULAR FILTRATION RATE > 60.0 (>58); GLUCOSE, FASTING 135 MG/DL (70-100); LIPASE 91 U/L (73-393); POTASSIUM SERUM 3.7 MEQ/L (3.5-5.1); SALICYLATE LEVEL < 1.7 MG/DL (5.0-30.0); SODIUM LEVEL 144 MEQ/L (136-145); TOTAL PROTEIN 7.7 GM/DL (6.4-8.2)
[2020-02-04 12:41] LABS: AMPHETAMINES LEVEL URINE NEGATIVE (NEGATIVE); BARBITURATES URINE NEGATIVE (NEGATIVE); BENZODIAZEPINES URINE NEGATIVE (NEGATIVE); CANNABINOIDS URINE NEGATIVE (NEGATIVE); COCAINE METABOLITE URINE NEGATIVE (NEGATIVE); METHADONE URINE NEGATIVE (NEGATIVE); OPIATES URINE NEGATIVE (NEGATIVE); PHENCYCLIDINE URINE NEGATIVE (NEGATIVE)
== END 2019-11-16 04:15 | disposition home or self-care (01) ==
LOC: M ED 00:05
DX: F10.129 Alcohol abuse with intoxication, unspecified (principal); M25.572 Pain in left ankle and joints of left foot; Z79.899 Other long term (current) drug therapy
CPT/HCPCS: 73630; 80048; 80076; 80307; 83690; 85025; 99284; G0480

== ENCOUNTER → 2019-12-21 | Outpatient (CLI) | payer OTHER, MEDICAID | LOC: M PAIN 11:25 | PROVIDERS: ATTEND Nurse Practitioner Family | DX: M79.18 Myalgia, other site (principal) ==

== ENCOUNTER → 2020-01-13 | Outpatient (REF) | payer OTHER, MEDICAID | LOC: M SFHCADAM 10:21 | PROVIDERS: ATTEND Family Medicine | DX: R35.0 Frequency of micturition (principal) ==

== ENCOUNTER → 2020-02-18 | Outpatient (CLI) | payer OTHER, MEDICAID ==
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
== END ==
LOC: M PAIN 14:00
PROVIDERS: ATTEND Nurse Practitioner Family
DX: M79.18 Myalgia, other site (principal); K21.9 Gastro-esophageal reflux disease without esophagitis; J45.909 Unspecified asthma, uncomplicated; G47.33 Obstructive sleep apnea (adult) (pediatric); I10 Essential (primary) hypertension; E11.9 Type 2 diabetes mellitus without complications; Z86.59 Personal history of other mental and behavioral disorders; Z88.5 Allergy status to narcotic agent; Z88.8 Allergy status to other drugs, medicaments and biological substances; E66.01 Morbid (severe) obesity due to excess calories; Z68.41 Body mass index [BMI] 40.0-44.9, adult; Z79.899 Other long term (current) drug therapy

== ENCOUNTER 2020-03-07 20:51 | Emergency (ER) | payer OTHER, MEDICAID ==
[~2020-03-07] VITALS: Ht 165.1 cm; Wt 102.3 kg
[2020-03-07 20:52] VITALS: BP 132/75
[2020-03-07] MEDS ORDERED: NAPR-885 PO (21:02)
[2020-03-07] MEDS ORDERED: OXYC-517 PO (21:02)
[2020-03-07] MEDS ORDERED: PRED20TA PO (21:26)
[2020-03-07] MEDS ORDERED: predniSONE 20 MG TAB PO ONE (21:30)
== END 2020-03-07 21:58 | disposition home or self-care (01) ==
LOC: M ED 20:51
DX: Z11.59 Encounter for screening for other viral diseases (principal); J45.901 Unspecified asthma with (acute) exacerbation; E66.9 Obesity, unspecified; E11.9 Type 2 diabetes mellitus without complications; I10 Essential (primary) hypertension; E78.5 Hyperlipidemia, unspecified; R51.9 Headache, unspecified; K21.9 Gastro-esophageal reflux disease without esophagitis; K58.9 Irritable bowel syndrome, unspecified; M54.9 Dorsalgia, unspecified; F41.9 Anxiety disorder, unspecified; F31.9 Bipolar disorder, unspecified; Z87.442 Personal history of urinary calculi; Z79.899 Other long term (current) drug therapy; Z88.8 Allergy status to other drugs, medicaments and biological substances
CPT/HCPCS: 99282; U0003

== ENCOUNTER 2020-04-21 12:34 | Emergency (ER) | payer OTHER, MEDICAID ==
[~2020-04-21] VITALS: Ht 165.1 cm; Wt 110.3 kg
[~2020-04-21 12:34] MED LIST changes: +OXYC-517 PO
[2020-04-21 12:36] VITALS: BP 130/90
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
--- OUTSIDE RECORDS SUMMARY | 2020-04-21 12:43 | CCD ---
Author Author [facility] Organization [facility] Address Unknown Phone Unavailable Care Team Providers Care Human Resources Office Assistant Name Role Phone Pat Archer Unavailable PROBLEMS Type Condition ICD9-CM Code [id number] Code Onset Dates Condition S tatus SNOMED Code Notes Problem Other hyperlipidemia E78.4 Active 63814490 Problem Obstructive sleep apnea (adult) (pediatric) G47.33 Active 86616932 Problem Surgical menopause, symptomatic E89.41 Active 371869978 Problem Asthma, extrinsic, unspecified asthma severity, uncomp licated J45.909 Active 442159426 Problem Duodenal ulcer disease K26.9 Active 25212219 Problem Severe episode of recurrent major depressive disorder, without psychotic features F33.2 Active 16509129 Problem Irritable bowel syndrome with both constipation and diarrh ea K58.2 Active 26987952 Problem Morbid (severe) obesity due to excess calories E66 .01 Active 25649762188265 Problem Low back pain M54.5 Active 234942503 Problem Cervicalgia M54.2 Active 3123416918411 Problem Primary osteoarthritis of right knee M17.11 Act waqas 548280074615099 Problem Migraine without status migr ainosus, not intractable, unspecified migraine type G43.909 Active 28796247 Problem Irritable bowel syndrome with diarrhea K58.0 A ctive 559756862 Problem Gastro-esophageal reflux disease without esophagitis K21.9 Active 366842213 Problem New daily persistent headache G44.52 Active 12 7094796389036 Problem Other chronic pain G89.29 Active 85462846 Problem Type 2 diabetes mellitus without complications E11 .9 Active 227469766 Problem Essential (primary) hypertension I10 Active 23032140 Problem Myalgia, other site M79.18 Active 86572716 Problem Facet arthropathy, 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 Active 2679 50676 Problem Facet arthropathy, cervical M47.812 Active 2679 84741 Problem Pain in thoracic spine M54.6 Active 962957519 ALLERGIES Allergen (clinical drug ingredient) Drug/Non Drug Allergy do cumented on EMR Reaction Allergy Type Onset Date Status amitriptyline Amitriptyline HCl([facility] Code:[address]-64) Hives Dr ug Allergy Active cats Eyes water Non Drug Allergy Active acetaminophen / oxycodone Percocet([facility] Code:[address]-14) Hives Drug Allergy Active ENCOUNTERS from 1973 to 2020-04-11 Encounter Location Date Provider Diagnosis [facility] [address] [place] [address] Apr, 21 Pat Chris-Tartell IMMUNIZATIONS Vaccine Route [...] Information RESULTS No Results REASON FOR VISIT metoprolol issue MEDICAL (GENERAL) HISTORY Type Description Date Medical [...] History perimenopause Medical History 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 [address] SEJAL SCHERER MEDICAID [employer] [address] [facility] [address] SEJAL SCHERER
--- OUTSIDE RECORDS SUMMARY | 2020-04-21 12:43 | CCD ---
Author Author [facility] Organization [facility] Address Unknown Phone Unavailable Care Team Providers Care Coater Smoking Pipe Name Role Phone Pat Archer Unavailable PROBLEMS Type Condition ICD9-CM Code [id number] Code Onset Dates Condition S tatus SNOMED Code Notes Problem Other hyperlipidemia E78.4 Active 85971856 Problem Obstructive sleep apnea (adult) (pediatric) G47.33 Active 06270002 Problem Surgical menopause, symptomatic E89.41 Active 977147181 Problem Asthma, extrinsic, unspecified asthma severity, uncomp licated J45.909 Active 515903415 Problem Duodenal ulcer disease K26.9 Active 09787511 Problem Severe episode of recurrent major depressive disorder, without psychotic features F33.2 Active 54454520 Problem Irritable bowel syndrome with both constipation and diarrh ea K58.2 Active 50376291 Problem Morbid (severe) obesity due to excess calories E66 .01 Active 44502234531324 Problem Low back pain M54.5 Active 348154260 Problem Cervicalgia M54.2 Active 9873077744733 Problem Primary osteoarthritis of right knee M17.11 Act waqas 472429714960928 Problem Migraine without status migr ainosus, not intractable, unspecified migraine type G43.909 Active 04344801 Problem Irritable bowel syndrome with diarrhea K58.0 A ctive 945114691 Problem Gastro-esophageal reflux disease without esophagitis K21.9 Active 997142959 Problem New daily persistent headache G44.52 Active 12 1772446611983 Problem Other chronic pain G89.29 Active 59530083 Problem Type 2 diabetes mellitus without complications E11 .9 Active 494572105 Problem Essential (primary) hypertension I10 Active 36634847 Problem Myalgia, other site M79.18 Active 57744342 Problem Facet arthropathy, 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 Code:[address]-15) Hives Dr elyse Allergy Active cats Eyes water Non Drug Allergy Active acetaminophen / oxycodone Percocet([facility] Code:[address]-79) Hives Drug Allergy Active ENCOUNTERS from 1973 to 2020-04-15 Encounter Location Date Provider Diagnosis [facility] [address] [place] [address] Mar, Pat Chris-Tartell New daily persistent headache G44.52 and Asthma, extrinsic, unspecified asthma severity, uncomplicated J45.909 IMMUNIZATIONS Vaccine Route Administration Date Status TDAP [...] REASON FOR REFERRAL No Information VITAL SIGNS Weight 245 lbs Mar, Height 62 in Mar, BMI 44.81 kg/m2 Mar, Heart Rate 100 /min Mar, Respiratory Rate 20 /min Mar, Temperature 96.7 degrees Fahrenheit Mar, Oximetry 97 Mar, Blood pressure systolic 134 mm Hg Mar, Blood pressure diastolic 88 mm Hg Mar, MEDICATIONS Medication SIG (Take, Route, Frequency, Duration) [...] Base) MCG/ACT inhale two puffs by m sabrina every 4 hours as needed for 30 [...] Information RESULTS No Results REASON FOR VISIT 6 week MEDICAL (GENERAL) HISTORY Type Description Date Medical [...] History perimenopause Medical History 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 Discussed risks and benefits, will try metoprolol for headache prophylaxis. Mar, Asthma, extrinsic, unspecifi ed asthma severity, uncomplicated (ICD- 10 - J45.909) She will let us know if her asthma seems worse on a beta-mary. It is very mild at baseline. PLAN OF TREATMENT Treatment Notes Assessment Notes Clinical Notes New daily persistent headache CT head or derd, referred to neurology. Discussed risks and benefits, will try metoprolol for headache prophylaxis. Asthma, extrinsic, unspecified asthma severity, uncomplicate d She will let us know if her asthma seems worse on a beta-mary. It is very mild at baseline. Future Test Test Name Order Date [facility] CT Head with contrast [id number] Insurance Providers Payer Name Payer Address Payer Phone Insured Name Patient Relati onship to Insured Coverage Start Date Coverage End Date [employer] BILL [address] [address] [facility] [address] SEJAL SCHERER MEDICAID [email or web address] [address] [facility] [address] SEJAL SCHERER self
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
--- OUTSIDE RECORDS SUMMARY | 2020-04-21 12:44 | CCD ---
Author Author [facility] Organization [facility] Address Unknown Phone Unavailable Care Team Providers Care Roofing Machine Tender Name Role Phone Pat Archer Unavailable PROBLEMS Type Condition ICD9-CM Code [id number] Code Onset Dates Condition S tatus SNOMED Code Notes Problem Obstructive sleep apnea (adult) (pediatric) G47.33 Active 96806632 Problem Essential (primary) hypertension I10 Active 82487339 Problem Asthma, extrinsic, unspecified asthma severity, uncomp licated J45.909 Active 273837538 Problem Other hyperlipidemia E78.4 Active 64857051 Problem Severe episode of recurrent major depressive disorder, without psychotic features F33.2 Active 82367527 Problem Surgical menopause, symptomatic E89.41 Active 065094497 Problem Morbid (severe) obesity due to excess calories E66 .01 Active 45308575682477 Problem Duodenal ulcer disease K26.9 Active 46507737 Problem Irritable bowel syndrome with diarrhea K58.0 A ctive 563935061 Problem Low back pain M54.5 Active 608171292 Problem Cervicalgia M54.2 Active 9587046592515 Problem Pain in thoracic spine M54.6 Active 218850923 Problem Other chronic pain G89.29 Active 46694179 Problem Type 2 diabetes mellitus without complications E11 .9 Active 777349757 Problem Migraine without status migr ainosus, not intractable, unspecified migraine type G43.909 Active 52135511 Problem Irritable bowel syndrome with both constipation and diarrh ea K58.2 Active 22745930 Problem Gastro-esophageal reflux disease without esophagitis K21.9 Active 513026418 Problem Primary osteoarthritis of right knee M17.11 Act waqas 229196577616733 Problem Myalgia, other site M79.18 Active 10217370 Problem Facet arthropathy, 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 Active 6412 73762 Problem Facet arthropathy, cervical M47.812 Active 0059 77995 ALLERGIES Allergen (clinical drug ingredient) Drug/Non Drug Allergy do cumented on EMR Reaction Allergy Type Onset Date Status amitriptyline Amitriptyline HCl([facility] Code:[address]-96) Hives Dr ug Allergy Active cats Eyes water Non Drug Allergy Active acetaminophen / oxycodone Percocet([facility] Code:[address]-12) Hives Drug Allergy Active ENCOUNTERS from 1973 to 2020-01-28 Encounter Location Date Provider Diagnosis [facility] [address] [place] [address] Jan, Pat Chris-Tartell IMMUNIZATIONS Vaccine Route Administration Date [...] drink containing alcohol in the past year? Ye s Points 1 Interpretation Negative How often did you have six or more drinks on one occas ion in the past year? Never (0 points) How many drinks did you have on a typica l day when you were drinking in the past year? 1 or 2 (0 points) How often did you have a drink containing alcohol in t he past year? Monthly or less (1 point) BMI Care Goal Follow-Up Question Answer Notes Above Normal BMI Follow-Up Giving encouragement to exercise Tobacco Use: Question Answer Notes Are you a: never smoker never smoker REASON FOR REFERRAL No Information VITAL SIGNS No information MEDICATIONS Medication SIG (Take, Route, Frequency, Duration) Start Date En d Date Status Acetaminophen 500 MG 2 caps as needed Orally every 6 hrs Active Furosemide 20 MG 1 tablet Orally Once a day for 90 day(s) Oct, 017 Active ProAir HFA 108 (90 Base) MCG/ACT inhale two puffs by m outh every 4 hours as needed for 30 days Active Blood Glucose System Binu - meter Dx: E11.9 Daily for 30 Days Jun Active Protonix 40 MG 1 tablet Orally twice daily for 90 Active Oxycodone HCl 5 MG 1 tablet as needed MDD 2 Orally every 6 hrs for 30 Days Jan, Active IBU-200 200 MG 2 tabs with food or milk as needed Orally Three time s a day Active Nebulizers - as directed _Dx J45.909 _ for 30 Days Mar, Active Verapamil HCl 80 MG 1 tablet Orally Three times a day for 30 day(s) Jan, Active Singulair 10 mg 1 tablet in the evening Orally Once a day for 90 Active Nebulizer Compressor - as directed _Dx:J45.909 _ for 30 Days Mar Active Gabapentin 300 MG 1 capsule Orally three times a day for 30 days Nov, Active Zyrtec Allergy 10 mg 1 tablet as needed Orally Once a day for 90 Active One Touch Ultra Test Strips 1 as directed intradermall y daily dx: E11.9 for 50 days Jun, Active Atorvastatin Calcium 40 MG 1 tablet Orally Once a day for 90 Active Duloxetine HCl 60 MG 1 capsule Orally Once a day for 30 days Sep Active Albuterol Sulfate (2.5 MG/3ML) 0.083% 3 ml Inhalation DX:J45.909 Three times a day as needed for 30 days Active Oxygen nasal cannula 1 lpm at night Active Lancets 1 as directed intradermally daily dx:E11.9 for 50 days 2 5 Jun, 2019 Active Robaxin-750 750 MG 1 tablet Orally Q8H PRN Mar, Active PROCEDURES No Information RESULTS No Results REASON FOR VISIT oxycodone 5 MEDICAL (GENERAL) HISTORY Type Description Date Medical [...] History perimenopause Medical History 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 [id number] SEJAL SCHERER [facility] [address] [address] [facility] [address] SEJAL SCHERER self
--- OUTSIDE RECORDS SUMMARY | 2020-04-21 12:44 | CCD ---
Author Author [facility] Organization [facility] Address Unknown Phone Unavailable Care Team Providers Care Home Care Associate Name Role Phone Pat Archer Unavailable PROBLEMS Type Condition ICD9-CM Code TBM82-VR Code Onset Dates Condition S tatus SNOMED Code Notes Problem Obstructive sleep apnea (adult) (pediatric) G47.33 Active 80036019 Problem Essential (primary) hypertension I10 Active 41415229 Problem Asthma, extrinsic, unspecified asthma severity, uncomp licated J45.909 Active 676843196 Problem Other hyperlipidemia E78.4 Active 00307345 Problem Severe episode of recurrent major depressive disorder, without psychotic features F33.2 Active 97198789 Problem Surgical menopause, symptomatic E89.41 Active 819428227 Problem Morbid (severe) obesity due to excess calories E66 .01 Active 69706316016866 Problem Duodenal ulcer disease K26.9 Active 76727245 Problem Irritable bowel syndrome with diarrhea K58.0 A ctive 533171305 Problem Low back pain M54.5 Active 171726966 Problem Cervicalgia M54.2 Active 1666968284732 Problem Pain in thoracic spine M54.6 Active 859145828 Problem Other chronic pain G89.29 Active 23144010 Problem Type 2 diabetes mellitus without complications E11 .9 Active 413985081 Problem Migraine without status migr ainosus, not intractable, unspecified migraine type G43.909 Active 87875814 Problem Irritable bowel syndrome with both constipation and diarrh ea K58.2 Active 78353814 Problem Gastro-esophageal reflux disease without esophagitis K21.9 Active 024373102 Problem Primary osteoarthritis of right knee M17.11 Act waqas 415339171933007 Problem Myalgia, other site M79.18 Active 64038992 Problem Facet arthropathy, 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 Active 3552 34116 Problem Facet arthropathy, cervical M47.812 Active 0010 58629 ALLERGIES Allergen (clinical drug ingredient) Drug/Non Drug Allergy do cumented on EMR Reaction Allergy Type Onset Date Status amitriptyline Amitriptyline HCl([facility] Code:[address]-25) Hives Dr ug Allergy Active cats Eyes water Non Drug Allergy Active acetaminophen / oxycodone Percocet([facility] Code:[address]-71) Hives Drug Allergy Active ENCOUNTERS from 1973 to 2020-02-28 Encounter Location Date Provider Diagnosis [facility] [address] [place] [address] Feb, 20 Pat Chris-Tartell IMMUNIZATIONS Vaccine Route Administration Date [...] Notes Start Da te End Date Status Zyrtec Allergy 10 mg 1 tablet as needed Orally Once a day for 90 Active Lancets 1 as directed intradermally daily dx:E11.9 for 50 days Jun, Active Atorvastatin Calcium 40 MG 1 tablet Orally Once a day for 90 Active Robaxin-750 750 MG 1 tablet Orally Q8H PRN Mar, Active Blood Glucose System Binu - meter Dx: E11.9 Daily for 30 Days Jun, Active Singulair 10 mg 1 tablet in the evening Orally Once a day for 90 Active Verapamil HCl 80 MG 1 tablet Orally Three times a day for 30 day (s) Jan, Active Albuterol Sulfate (2.5 MG/3ML) 0.083% 3 ml Inhalation DX:J45.909 Three times a day as needed for 30 days Active Nebulizers - as directed _Dx J45.909 _ for 30 Days Mar, Active Oxygen nasal cannula 1 lpm at night Active Furosemide 20 MG 1 tablet Orally Once a day for 90 day(s) Oct, Active Acetaminophen 500 MG 2 caps as needed Orally every 6 hrs Active Nebulizer Compressor - as directed _Dx:J45.909 _ for 30 Days Mar, Active One Touch Ultra Test Strips 1 as directed intradermall y daily dx: E11.9 for 50 days Jun, Active Protonix 40 MG 1 tablet Orally twice daily for 90 Active IBU-200 200 MG 2 tabs with food or milk as needed Orally Three time s a day Active Oxycodone HCl 5 MG 1 tablet as needed MDD 2 Orally every 6 hrs f or 30 Days Feb, Active ProAir HFA 108 (90 Base) MCG/ACT inhale two puffs by m outh every 4 hours as needed for 30 days Active Gabapentin 300 MG 1 capsule Orally three times a day for 30 days Nov, Active Duloxetine HCl 60 MG 1 capsule Orally Once a day for 30 days Sep, Active PROCEDURES No Information RESULTS No Results REASON FOR VISIT refill MEDICAL (GENERAL) HISTORY Type Description Date Medical [...] History perimenopause Medical History 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
--- OUTSIDE RECORDS SUMMARY | 2020-04-21 12:44 | CCD ---
Author Author [facility] Organization [facility] Address Unknown Phone Unavailable Care Team Providers Care Traffic Or System Dispatcher Name Role Phone Pat Archer Unavailable PROBLEMS Type Condition ICD9-CM Code HGI40-LD Code Onset Dates Condition S tatus SNOMED Code Notes Problem Obstructive sleep apnea (adult) (pediatric) G47.33 Active 20190589 Problem Essential (primary) hypertension I10 Active 72673072 Problem Asthma, extrinsic, unspecified asthma severity, uncomp licated J45.909 Active 982756699 Problem Other hyperlipidemia E78.4 Active 44956071 Problem Severe episode of recurrent major depressive disorder, without psychotic features F33.2 Active 56450132 Problem Surgical menopause, symptomatic E89.41 Active 959619547 Problem Morbid (severe) obesity due to excess calories E66 .01 Active 69011109832567 Problem Duodenal ulcer disease K26.9 Active 63275476 Problem Irritable bowel syndrome with diarrhea K58.0 A ctive 561889429 Problem Low back pain M54.5 Active 364481727 Problem Cervicalgia M54.2 Active 8978761147683 Problem Pain in thoracic spine M54.6 Active 778165302 Problem Other chronic pain G89.29 Active 14034239 Problem Type 2 diabetes mellitus without complications E11 .9 Active 858350369 Problem Migraine without status migr ainosus, not intractable, unspecified migraine type G43.909 Active 44176811 Problem Irritable bowel syndrome with both constipation and diarrh ea K58.2 Active 15037033 Problem Gastro-esophageal reflux disease without esophagitis K21.9 Active 768906605 Problem Primary osteoarthritis of right knee M17.11 Act waqas 739487064086310 Problem Myalgia, other site M79.18 Active 80806673 Problem Facet arthropathy, 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 Active 9308 39798 Problem Facet arthropathy, cervical M47.812 Active 6026 27185 ALLERGIES Allergen (clinical drug ingredient) Drug/Non Drug Allergy do cumented on EMR Reaction Allergy Type Onset Date Status amitriptyline Amitriptyline HCl([facility] Code:[address]-07) Hives Dr ug Allergy Active cats Eyes water Non Drug Allergy Active acetaminophen / oxycodone Percocet([facility] Code:[address]-31) Hives Drug Allergy Active ENCOUNTERS from 1973 to 2020-03-14 Encounter Location Date Provider Diagnosis [facility] [address] [place] [address] Mar, Pat Chris-Tartell IMMUNIZATIONS Vaccine Route Administration Date [...] Orally Once a day for 90 Active PredniSONE 20 MG 2 tablets Orally Once a day for 2 days Mar, Active Acetaminophen 500 MG 2 caps as [...] hrs f or 30 Days Feb, Active Albuterol Sulfate (2.5 MG/3ML) 0.083% 3 [...] a day for 30 days Sep, Active Protonix 40 MG 1 tablet Orally twice daily for 90 Active Robaxin-750 750 MG 1 tablet Orally Q8H PRN Mar, Active One Touch Ultra Test Strips 1 as directed intradermall y daily dx: E11.9 for 50 days Jun, Active Atorvastatin Calcium 40 MG 1 tablet Orally Once a day for 90 Active ProAir HFA 108 (90 [...] History perimenopause Medical History Chest pain - 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 Castañeda - Nuclear stress test - [...] every 6 hrs for 30 Days Feb, PredniSONE 20 MG 2 tablets Orally Once a day for 2 days Mar, Protonix 40 MG 1 tablet Orally twice daily for 90 Atorvastatin Calcium 40 MG 1 tablet Orally Once a day for 90 Next Appt Details Provider Name:Pat Archer, 2020-03-29 10:00:00 AM, [address], [place], [address], Insurance Providers Payer Name Payer Address Payer Phone Insured Name Patient Relati onship to Insured Coverage Start Date Coverage End Date MEDICAID [employer] [address] [facility] [address] SEJAL SCHERER self [facility] [address] [address] [facility] [phone] SEJAL SCHERER self
--- OUTSIDE RECORDS SUMMARY | 2020-04-21 12:44 | CCD ---
Author Author [facility] Organization [facility] Address Unknown Phone Unavailable Care Team Providers Care Budget Clerk Name Role Phone Pat Archer Unavailable PROBLEMS Type Condition ICD9-CM Code [id number] Code Onset Dates Condition S tatus SNOMED Code Notes Problem Obstructive sleep apnea (adult) (pediatric) G47.33 Active 92130027 Problem Essential (primary) hypertension I10 Active 20646520 Problem Asthma, extrinsic, unspecified asthma severity, uncomp licated J45.909 Active 337946802 Problem Other hyperlipidemia E78.4 Active 17344747 Problem Severe episode of recurrent major depressive disorder, without psychotic features F33.2 Active 95009285 Problem Surgical menopause, symptomatic E89.41 Active 099411769 Problem Morbid (severe) obesity due to excess calories E66 .01 Active 14275878691922 Problem Duodenal ulcer disease K26.9 Active 64127098 Problem Irritable bowel syndrome with diarrhea K58.0 A ctive 110006297 Problem Low back pain M54.5 Active 866853764 Problem Cervicalgia M54.2 Active 2270413940500 Problem Pain in thoracic spine M54.6 Active 468162791 Problem Other chronic pain G89.29 Active 81338941 Problem Type 2 diabetes mellitus without complications E11 .9 Active 661498723 Problem Migraine without status migr ainosus, not intractable, unspecified migraine type G43.909 Active 19497021 Problem Irritable bowel syndrome with both constipation and diarrh ea K58.2 Active 33941137 Problem Gastro-esophageal reflux disease without esophagitis K21.9 Active 617349962 Problem Primary osteoarthritis of right knee M17.11 Act waqas 041057220532968 Problem Myalgia, other site M79.18 Active 88355944 Problem Facet arthropathy, 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 Code:[address]-05) Hives Dr ug Allergy Active cats Eyes water Non Drug Allergy Active acetaminophen / oxycodone Percocet([facility] Code:[address]-58) Hives Drug Allergy Active ENCOUNTERS from 1973 to 2020-02-04 Encounter Location Date Provider Diagnosis [facility] [address] [place] [address] Jan, Pat Chris-Tartell Migraine without status migrainosus, not intractable, unspecified migraine type G43.909 IMMUNIZATIONS Vaccine Route Administration Date Status TDAP [...] FOR REFERRAL No Information VITAL SIGNS Weight 244.2 lbs Jan, Height 62 in Jan, BMI 44.66 kg/m2 Jan, Heart Rate 98 /min Jan, Respiratory Rate 18 /min Jan, Temperature 98.3 degrees Fahrenheit Jan, Oximetry 95 Jan, Blood pressure systolic 130 mm Hg Jan, Blood pressure diastolic 80 mm Hg Jan, MEDICATIONS Medication SIG (Take, Route, Frequency, Duration) [...] Information RESULTS No Results REASON FOR VISIT 1 week MEDICAL (GENERAL) HISTORY Type Description Date [...] History perimenopause Medical History Chest pain - Care Management Coordinator Dr Castañeda - Nuclear stress test - [...] STATUS No Information ASSESSMENTS Encounter Date Diagnosis Notes Jan, Migraine without status migr ainosus, not intractable, unspecified migraine type (ICD-10 - G43.909) PLAN OF TREATMENT Medication Medication Name Sig Start Date Stop Date Oxycodone HCl 5 MG 1 tablet as needed MDD 2 Orally every 6 hrs for 30 Days Jan, Verapamil HCl 80 MG 1 tablet Orally Three times a day for 30 day(s) Jan, Treatment Notes Assessment Notes Clinical Notes Migraine without status migrainosus, not intractable, unspecified migraine type Advised to keep a headache diary. Will try prescribing verapamil for prevention. Aleve if she gets one. Encouraged her to consider CPAP use. Next Appt Details 6 Weeks Reason:f/u [facility] Provider Name:Flor Churchill, 2020-02-18 11 :00:00 AM, [address] [place], [address], Provider Name:Pat Archer, 2020-03-15 11:30:00 AM, [address], [address], Follow Up:6 Weeksf/u [facility] Insurance Providers Payer Name Payer Address Payer Phone Insured Name Patient Relati onship to Insured Coverage Start Date Coverage End Date MEDICAID [employer] [address] [facility] [address] SEJAL SCHERER [employer] [facility] [address] [address] [facility] [address] SEJAL SCHERER
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
--- OUTSIDE RECORDS SUMMARY | 2020-04-21 12:44 | CCD ---
Author Author [facility] Organization [facility] Address Unknown Phone Unavailable Care Team Providers Care Warehouse Man Name Role Phone Pat Archer Unavailable PROBLEMS Type Condition ICD9-CM Code GUM93-IU Code Onset Dates Condition S tatus SNOMED Code Notes Problem Obstructive sleep apnea (adult) (pediatric) G47.33 Active 88172174 Problem Essential (primary) hypertension I10 Active 05889774 Problem Asthma, extrinsic, unspecified asthma severity, uncomp licated J45.909 Active 514329323 Problem Other hyperlipidemia E78.4 Active 48580200 Problem Severe episode of recurrent major depressive disorder, without psychotic features F33.2 Active 52558330 Problem Surgical menopause, symptomatic E89.41 Active 781916654 Problem Morbid (severe) obesity due to excess calories E66 .01 Active 73916380734977 Problem Duodenal ulcer disease K26.9 Active 75539298 Problem Irritable bowel syndrome with diarrhea K58.0 A ctive 739223559 Problem Low back pain M54.5 Active 490901052 Problem Cervicalgia M54.2 Active 7146986490943 Problem Pain in thoracic spine M54.6 Active 386517426 Problem Other chronic pain G89.29 Active 82589122 Problem Type 2 diabetes mellitus without complications E11 .9 Active 041631866 Problem Migraine without status migr ainosus, not intractable, unspecified migraine type G43.909 Active 54407558 Problem Irritable bowel syndrome with both constipation and diarrh ea K58.2 Active 49157755 Problem Gastro-esophageal reflux disease without esophagitis K21.9 Active 465781325 Problem Primary osteoarthritis of right knee M17.11 Act waqas 211036710881560 Problem Myalgia, other site M79.18 Active 99404594 Problem Facet arthropathy, 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 Active 1531 90841 Problem Facet arthropathy, cervical M47.812 Active 2797 78775 ALLERGIES Allergen (clinical drug ingredient) Drug/Non Drug Allergy do cumented on EMR Reaction Allergy Type Onset Date Status amitriptyline Amitriptyline HCl([facility] Code:[address]-45) Hives Dr ug Allergy Active cats Eyes water Non Drug Allergy Active acetaminophen / oxycodone Percocet([facility] Code:[address]-80) Hives Drug Allergy Active ENCOUNTERS from 1973 to 2020-03-28 Encounter Location Date Provider Diagnosis [facility] [address] [place] [address] Mar, Pat Chris-Tartell IMMUNIZATIONS Vaccine Route Administration [...] hrs f or 30 Days Mar, Active Albuterol Sulfate (2.5 MG/3ML) 0.083% 3 [...] RESULTS No Results REASON FOR VISIT oxycodone MEDICAL (GENERAL) HISTORY Type Description Date Medical [...] History perimenopause Medical History 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 - Nuclear stress test - [...] Orally every 6 hrs for 30 Days Mar, PredniSONE 20 MG 2 tablets Orally Once a day for 2 days Mar, Protonix 40 MG 1 tablet Orally twice daily for 90 Atorvastatin Calcium 40 MG 1 tablet Orally Once a day for 90 Next Appt Details Provider Name:Pat Archer, 2020-03-29 10:00:00 AM, [address], [place], [address], Insurance Providers Payer Name Payer Address Payer Phone Insured Name Patient Relati onship to Insured Coverage Start Date Coverage End Date [place] [employer] [address] [address] [facility] [phone] SEJAL SCHERER self MEDICAID [employer] [address] [facility] [id number] SEJAL SCHERER self
--- OUTSIDE RECORDS SUMMARY | 2020-04-21 12:44 | CCD | Continuity of Care Document ---
Author Renea Woodward M.D. Organization Unknown Address [address] [place] [address] Phone [phone] Care Team Providers Care Core Man Name Role Phone Pat Alonzo DO AUTM [phone] Problems Active Problems Provider Date Chronic intractable migraine without aura Elinor Leung M.D. Onset: 04/03/2020 Chronic tension-type headache Elinor Leung M.D. Onset: Neck pain Elinor Leung M.D. Onset: 04/03/2020 Spondylolysis of cervical spine Elinor Leung M.D. Onset: 1 06/04/2019 Social History Type Date Description Comments Sex Unknown Tobacco Use Start: Unknown Patient has never smoked Allergies, Adverse Reactions, Alerts Description No Known Drug Allergies Medications Active Medications SIG Qnty Indications Ordering Provide r Date Topiramate 50mg Tablets half a tab po qhs for 1 week, then 1 po qhs for 1 week, & then 2 po qhs. 60takomal Leung M.D. 04/03/2020 Alprazolam 0.5mg Tablets 1 tab by mouth half an hour before mri scan. may repeat once if needed. 2takomal Leung M.D. 04/03/2020 Sumatriptan Succinate 100mg Tablet s half or 1 tab by mouth onset of headache, may repeat once after 2 hrs. 9estrella Leung M.D. 04/03/2020 Immunizations Description No Information Available Vital Signs Date Vital Result Comment 04/03/2020 12:30pm BP Systolic 130 mmHg BP Diastolic 80 mmHg Heart Rate 70 /min Respiratory Rate 14 /min Height 65 inches 5'5" Weight 240.00 lb BMI (Body Mass Index) 39.9 kg/m2 [place] Body Weight 125 lb Results Description No Information Available Procedures Description No Information Available Medical Devices Description No Information Available Encounters Type Date Location Provider Dx Diagnosis Office Visit 04/03/2020 12:00p [facility] Odette Ordonez G43.719 Chronic migraine w/o aura, intractable, w/o stat migr G44.221 Chronic tension-type headach e, intractable M54.2 Cervicalgia M43.02 Spondylolysis, cervical maria e on Assessments Date Code Description Provider 04/03/2020 G43.719 Chronic migraine wit hout aura, intractable, without status migrainosus Elinor Leung M.D. 04/03/2020 G44.221 Chronic tension-type headache, i ntractable Elinor Leung M.D. 04/03/2020 M54.2 Cervicalgia Elinor Leung M.D. 04/03/2020 M43.02 Spondylolysis, cervical region M britney Leung M.D. Plan of Treatment Future Appointment(s):* 05/10/2020 11:45 am - Elinor Leung M.D. at [facility] Functional Status Description No Information Available Mental Status Description No Information Available Referrals Refer to Dr Reason for Referral Status Appt Date Elinor Leung M.D. Created [facility] [address] [place] [address] [phone] Elinor Leung M.D. Created [facility] [address] [place] [address] [phone]
--- OUTSIDE RECORDS SUMMARY | 2020-04-21 12:45 | CCD ---
Author Author [facility] Organization [facility] Address Unknown Phone Unavailable Care Team Providers Care Lease Administration Supervisor Name Role Phone Terence Krishnamurthy Unavailable Unavailable BirklinTerence Unavailable Unavailable BirklTerence meeks Unavailable Unavailable BirklTerence meeks Unavailable Unavailable BirklTerence meeks Unavailable Unavailable Terence Krishnamurthy Unavailable Unavailable Terence Krishnamurthy Unavailable Unavailable DianeklTerence meeks Unavailable Unavailable DianeklTerence meeks Unavailable Unavailable Terence Krishnamurthy Unavailable Unavailable DianeklTerence meeks Unavailable Unavailable DianeklTerence meeks Unavailable Unavailable DianeklTerence meeks Unavailable Unavailable Birklin, Terence Karthik PA Unavailable Unavailable Birklin, Terence Angeles PA Unavailable Unavailable Birklin, Terence Angeles PA Unavailable Unavailable Birklin, Terence Angeles PA Unavailable Unavailable Birklin, Terence Angeles PA Unavailable Unavailable Birklin, Terence Angeles PA Unavailable Unavailable Birklin, Terence Angeles PA Unavailable Unavailable Birklin, Terence Angeles PA Unavailable Unavailable Birklin, Terence Angeles PA Unavailable Unavailable Birklin, Terence Angeles PA Unavailable Unavailable Birklin, Terence Angeles PA Unavailable Unavailable Birklin, Terence Angeles PA Unavailable Unavailable Birklin, Terence Angeles PA Unavailable Unavailable Birklin, Terence Angeles PA Unavailable Unavailable Birklin, Terence Angeles PA Unavailable Unavailable TORIBIO, NEO MD Unavailable Unavailable TORIBIO, NEO MD Unavailable Unavailable TORIBIO, NEO MD Unavailable Unavailable TORIBIO, NEO MD Unavailable Unavailable TORIBIO, NEO MD Unavailable Unavailable TORIBIO, NEO MD Unavailable Unavailable TORIBIO, NEO MD Unavailable Unavailable TORIBIO, NEO MD Unavailable Unavailable TORIBIO, NEO MD Unavailable Unavailable TORIBIO, NEO MD Unavailable Unavailable TORIBIO, NEO MD Unavailable Unavailable TORIBIO, NEO MD Unavailable Unavailable TORIBIO, NEO MD Unavailable Unavailable TORIBIO, NEO MD Unavailable Unavailable TORIBIO, NEO MD Unavailable Unavailable TORIBIO, NEO MD Unavailable Unavailable TORIBIO, NEO MD Unavailable Unavailable TORIBIO, NEO MD Unavailable Unavailable TORIBIO, NEO MD Unavailable Unavailable TORIBIO, NEO MD Unavailable Unavailable TORIBIO, NEO MD Unavailable Unavailable TORIBIO, NEO MD Unavailable Unavailable TORIBIO, NEO MD Unavailable Unavailable TORIBIO, NEO MD Unavailable Unavailable TORIBIO, NEO MD Unavailable Unavailable TORIBIO, NEO MD Unavailable Unavailable TORIBIO, NEO MD Unavailable Unavailable TORIBIO, NEO MD Unavailable Unavailable TORIBIO, NEO MD Unavailable Unavailable TORIBIO, NEO MD Unavailable Unavailable TORIBIO, NEO MD Unavailable Unavailable TORIBIO, NEO MD Unavailable Unavailable TORIBIO, NEO MD Unavailable Unavailable TORIBIO, NEO MD Unavailable Unavailable TORIBIO, NEO MD Unavailable Unavailable TORIBIO, NEO MD Unavailable Unavailable TORIBIO, NEO MD Unavailable Unavailable TORIBIO, NEO MD Unavailable Unavailable TORIBIO, NEO MD Unavailable Unavailable TORIBIO, NEO MD Unavailable Unavailable TORIBIO, NEO MD Unavailable Unavailable TORIBIO, NEO MD Unavailable Unavailable TORIBIO, NEO MD Unavailable Unavailable TORIBIO, NEO MD Unavailable Unavailable TORIBIO, NEO MD Unavailable Unavailable TORIBIO, NEO MD Unavailable Unavailable TORIBIO, NEO MD Unavailable Unavailable TORIBIO, NEO MD Unavailable Unavailable TORIBIO, NEO MD Unavailable Unavailable TORIBIO, NEO MD Unavailable Unavailable TORIBIO, NEO MD Unavailable Unavailable TORIBIO, NEO MD Unavailable Unavailable TORIBIO, NEO MD Unavailable Unavailable TORIBIO, NEO MD Unavailable Unavailable TORIBIO, NEO MD Unavailable Unavailable TORIBIO, NEO MD Unavailable Unavailable TORIBIO, NEO MD Unavailable Unavailable TORIBIO, NEO MD Unavailable Unavailable TORIBIO, NEO MD Unavailable Unavailable TORIBIO, NEO MD Unavailable Unavailable TORIBIO, NEO MD Unavailable Unavailable TORIBIO, NEO MD Unavailable Unavailable TORIBIO, NEO MD Unavailable Unavailable TORIBIO, NEO MD Unavailable Unavailable TORIBIO, NEO MD Unavailable Unavailable TORIBIO, NEO MD Unavailable Unavailable BEENA, SINDI FERRERA Unavailable Unavailable BEENA, SINDI FERRERA Unavailable Unavailable BEENASINDI MD Unavailable Unavailable BEENASINDI MD Unavailable Unavailable BEENASINDI MD Unavailable Unavailable BEENASINDI MD Unavailable Unavailable BEENA, SINDI FERRERA Unavailable Unavailable BEENA, SINDI FERRERA Unavailable Unavailable BEENA, SINDI FERRERA Unavailable Unavailable BEENA, SINDI FERRERA Unavailable Unavailable BEENA, SINDI FERRERA Unavailable Unavailable BEENA, SINDI FERRERA Unavailable Unavailable BEENASINDI MD Unavailable Unavailable BEENASINDI MD Unavailable Unavailable BEENA, SINDI FERRERA Unavailable Unavailable BEENA, SINDI FERRERA Unavailable Unavailable BEENASINDI MD Unavailable Unavailable BEENA, SINDI FERRERA Unavailable Unavailable BEENASINDI MD Unavailable Unavailable BEENA, SINDI FERRERA Unavailable Unavailable BEENA, SINDI FERRERA Unavailable Unavailable BEENASINDI MD Unavailable Unavailable BEENASINDI MD Unavailable Unavailable BEENASINDI MD Unavailable Unavailable BEENASINDI MD Unavailable Unavailable BEENASINDI MD Unavailable Unavailable BEENASINDI MD Unavailable Unavailable BEENASINDI MD Unavailable Unavailable BEENASINDI MD Unavailable Unavailable BEENASINDI MD Unavailable Unavailable BEENASINDI MD Unavailable Unavailable BEENASINDI MD Unavailable Unavailable BEENASINDI MD Unavailable Unavailable BEENASINDI MD Unavailable Unavailable BEENASINDI MD Unavailable Unavailable BEENASINDI MD Unavailable Unavailable BEENASINDI MD Unavailable Unavailable BEENASINDI MD Unavailable Unavailable BEENASINDI MD Unavailable Unavailable BEENASINDI MD Unavailable Unavailable BEENASINDI MD Unavailable Unavailable BEENASINDI MD Unavailable Unavailable BEENASINDI MD Unavailable Unavailable BEENASINDI MD Unavailable Unavailable BEENA, SINDI FERRERA Unavailable Unavailable BEENA, SINDI FERRERA Unavailable Unavailable BEEAN, SINDI FERRERA Unavailable Unavailable BEENA, DELONG MD Unavailable Unavailable BEENA, DELONG MD Unavailable Unavailable BEENA, DELONG MD Unavailable Unavailable BEENA, DELONG MD Unavailable Unavailable BEENA, DELONG MD Unavailable Unavailable BEENA, DELONG MD Unavailable Unavailable BEENA, DELONG MD Unavailable Unavailable [facility], DMCCABE1 Unavailable Unavailable Ali, Elinor MD Unavailable Unavailable Ali, Elinor MD Unavailable Unavailable Ali, Elinor MD Unavailable Unavailable Ali, Elinor MD Unavailable Unavailable Ali, Elinor MD Unavailable Unavailable Ali, Elinor MD Unavailable Unavailable Ali, Elinor MD Unavailable Unavailable Ali, Elinor MD Unavailable Unavailable Ali, Elinor MD Unavailable Unavailable Ali, Elinor MD Unavailable Unavailable Ali, Elinor MD Unavailable Unavailable Ali, Elinor MD Unavailable Unavailable Ali, Elinor MD Unavailable Unavailable Ali, Elinor MD Unavailable Unavailable Ali, Elinor MD Unavailable Unavailable Ali, Elinor MD Unavailable Unavailable Ali, Elinor MD Unavailable Unavailable Ali, Elinor MD Unavailable Unavailable Ali, Elinor MD Unavailable Unavailable Ali, Elinor MD Unavailable Unavailable Ali, Elinor MD Unavailable Unavailable Ali, Elinor MD Unavailable Unavailable Ali, Elinor MD Unavailable Unavailable Ali, Elinor MD Unavailable Unavailable Ali, Elinor MD Unavailable Unavailable Ali, Elinor MD Unavailable Unavailable Ali, Elinor MD Unavailable Unavailable Ali, Elinor MD Unavailable Unavailable Ali, Elinor MD Unavailable Unavailable Ali, Elinor MD Unavailable Unavailable Ali, Elinor MD Unavailable Unavailable Ali, Elinor MD Unavailable Unavailable Ali, Elinor MD Unavailable Unavailable Ali, Elinor MD Unavailable Unavailable Ali, Elinor MD Unavailable Unavailable Ali, Elinor MD Unavailable Unavailable Ali, Elinor MD Unavailable Unavailable Ali, Elinor MD Unavailable Unavailable Ali, Elinor MD Unavailable Unavailable Ali, Elinor MD Unavailable Unavailable Ali, Elinor MD Unavailable Unavailable Ali, Elinor MD Unavailable Unavailable Ali, Elinor MD Unavailable Unavailable Ali, Leinor MD Unavailable Unavailable Ali, Elinor MD Unavailable Unavailable Ali, Elinor MD Unavailable Unavailable Ali, Elinor MD Unavailable Unavailable Ali, Elinor MD Unavailable Unavailable Ali, Elinor MD Unavailable Unavailable Ali, Elinor MD Unavailable Unavailable Ali, Elinor MD Unavailable Unavailable Ali, Elinor MD Unavailable Unavailable Re-disclosure Warning The records that you are about to access may contain information from federally-assisted alcohol or drug abuse programs. If such information is present, then the following federally mandated warning applies: This information has been disclosed to you from records protected by federal confidentiality rules (42 CFR part 2). The federal rules prohibit you from making any further disclosure of this information unless further disclosure is expressly permitted by the written consent of the person to whom it pertains or as otherwise permitted by 42 CFR part 2. A general authorization for the release of medical or other information is NOT sufficient for this purpose. The Federal rules restrict any use of the information to criminally investigate or prosecute any alcohol or drug abuse patient.The records that you are about to access may contain highly sensitive health information, the redisclosure of which is protected by Article 27-F of the [facility] Public Health law. If you continue you may have access to information: Regarding HIV / AIDS; Provided by facilities licensed or operated by the [facility] Office of Mental Health; or Provided by the [facility] Office for People With Developmental Disabilities. If such information is present, then the following [facility] mandated warning applies: This information has been disclosed to you from confidential records which are protected by state law. State law prohibits you from making any further disclosure of this information without the specific written consent of the person to whom it pertains, or as otherwise permitted by law. Any unauthorized further disclosure in violation of state law may result in a fine or usp sentence or both. A general authorization for the release of medical or other information is NOT sufficient authorization for further disc losure. Allergies and Adverse Reactions Type Description Substance Reaction Status Data Source(s ) Drug allergy Amitriptyline HCl Amitriptyline Hives Active eC W1 ([facility]) Drug allergy Percocet acetaminophen / oxycodone Hives Active eCW1 ([facility]) cats cats cats Eyes water Active [facility] cats cats cats Eyes water Active eCW[facility]) cats cats cats Eyes water Active eCW1 [facility]) cats cats cats Eyes water Active eCW[facility] cats cats cats Eyes water Active eCW[facility] cats cats cats Eyes water Active eCW1 [facility]) Family History Family Member Name Family Member Gender Family Member Status Date o f Status Description Data Source(s) Unknown Male Problem MEDENT ([facility]) Unknown Female Problem MEDENT ([facility]) Unknown Unknown Problem MEDENT ([facility] ) Unknown Female Problem MEDENT ([facility]) Encounters Encounter Providers Location Date Indications Data Source(s ) Unknown [address] [facility] [place] [address] 04/19/2020 12:00:00 AM EST eCW1 ([facility]) Unknown [address] [facility] [place] [address] 04/11/2020 12:00:00 AM EST eCW1 ([facility]) Unknown [address] [facility] [place] [address] 04/10/2020 12:00:00 AM EST eCW1 ([facility]) Outpatient Attender: Elinor Leung MD Main office - [place] 04/03/2020 11:00:00 AM EST MEDENT ([facility] ) Outpatient [address] [facility] [place] [address] 03/29/2020 12:00:00 AM EST eCW1 ([facility]) Unknown [address] [facility] [place] [address] 03/27/2020 12:00:00 AM EST eCW1 ([facility]) Unknown [address] [facility] [place] [address] 03/13/2020 12:00:00 AM EST eCW1 ([facility]) Unknown [address] [facility] [place] [address] 03/10/2020 12:00:00 AM EST eCW1 ([facility]) Unknown [address] [facility] [place] [address] 02/28/2020 12:00:00 AM EST eCW1 ([facility]) Outpatient [address] [facility] Y [address] 02/18/2020 12:00:00 AM EST eCW1 ([facility]) Unknown [address] [facility] [place] [address] 01/27/2020 12:00:00 AM EDT eCW1 ([facility]) Outpatient [address] [facility] [place] [address] 01/19/2020 12:00:00 AM EDT eCW1 ([facility]) [place] [address] [facility] [place] [address] 01/12/2020 12:00:00 AM EDT eCW1 ([facility]) [facility] [address] [facility] [place] [address] 11/25/2019 12:00:00 AM EDT eCW1 ([facility]) [place] [address] [facility] [place] [address] 10/20/2019 12:00:00 AM EDT eCW1 ([facility]) [place] [address] [facility] [place] [address] 09/20/2019 12:00:00 AM EDT eCW1 ([facility]) Outpatient Attender: [email or web address] [facility] 09/14/2019 07:36:[address] [facility] [place] [address] [facility] [place] [address] 09/14/2019 12:00:00 AM EDT eCW1 ([facility]) [place] [address] [facility] [place] [address] 09/10/2019 12:00:00 AM EDT eCW1 ([facility]) Outpatient Attender: [email or web address] [facility] 09/04/2019 12:10:55 AM EDT [facility] [address] [facility] [place] [address] 09/02/2019 12:00:00 AM EDT eCW1 ([facility]) [facility] [address] [facility] [place] [address] 08/26/2019 12:00:00 AM EDT eCW1 ([facility]) [place] [address] [facility] [place] [address] 08/25/2019 12:00:00 AM EDT eCW1 ([facility]) [facility] [address] [facility] [place] [address] 08/18/2019 12:00:00 AM EDT eCW1 ([facility]) [facility] [address] [facility] [place] [address] 08/17/2019 12:00:00 AM EDT eCW1 ([facility]) [facility] [address] [facility] [place] [address] 07/28/2019 12:00:00 AM EDT eCW1 ([facility]) [facility] [address] [facility] [place] [address] 07/20/2019 12:00:00 AM EDT eCW1 ([facility]) [facility] [place] [address] [facility] [address] 07/01/2019 12:00:00 AM EDT eCW1 ([facility]) [facility] [address] [facility] [place] [address] 06/29/2019 12:00:00 AM EDT eCW1 ([facility]) [facility] [address] [facility] [place] [address] 06/29/2019 12:00:00 AM EDT eCW1 ([facility]) [facility] [address] [place] [address] 06/28/2019 12:00:00 AM EDT [facility]CW1 [facility] Outpatient 06/02/2019 05:33:00 AM EST [facility] [place] [address] [facility] [address] 05/27/2019 12:00:00 AM EST eCW1 ([facility]) [facility] [place] [address] [facility] [address] 05/25/2019 12:00:00 AM EST eCW1 [facility]) Outpatient 05/20/2019 12:44:00 PM EST [facility] [place] [address] [facility] [address] 05/13/2019 12:00:00 AM EST eCW1 ([facility]) Outpatient Attender: SINDI HARGROVE MD [email or web address] 05/05/2019 12:00:00 AM EST [facility] Outpatient Attender: Karthik JONES [id number] 05/04/2019 12 :00:00 AM EST Other fracture of right lower leg, subsequent encounter for closed fracture with routine healing [facility] Other fracture of right lower leg, subse quent encounter for closed fracture with routine healing Outpatient Referrer: Karthik JONES 05/04/2019 12 :00:00 AM EST Other fracture of right lower leg, subsequent encounter for closed fracture with routine healing [facility] Other fracture of right lower leg, subse quent encounter for closed fracture with routine healing Outpatient Attender: [email or web address] [facility] 04/30/2019 02:19:00 PM EST [facility] [address] [place] [address] 04/30/2019 12:00:00 AM EST eCW1 ([facility]) [facility] [address] [place] [address] 04/28/2019 12:00:00 AM EST eCW1 ([facility]) [address] [address] 04/15/2019 12:00:00 AM EST eCW1 ([facility]) [facility] [address] [place] [address] 04/15/2019 12:00:00 AM EST eCW1 ([facility]) [facility] [address] [place] [address] 04/14/2019 12:00:00 AM EST eCW1 ([facility]) [address] [address] 04/02/2019 12:00:00 AM EST eCW1 ([facility]) [facility] [address] [place] [address] 03/29/2019 12:00:00 AM EST eCW1 ([facility]) [facility] [address] [place] [address] 03/29/2019 12:00:00 AM EST eCW1 ([facility]) Outpatient 03/28/2019 07:10:00 PM EST [facility] Outpatient [address] [facility] [place] [address] 03/26/2019 12:00:00 AM EST eCW1 ([facility]) [facility] [address] [place] [phone] 03/26/2019 12:00:00 AM EST eCW1 ([facility]) Outpatient Attender: NEO ROONEY MD [id number] 03/23/2019 12:00:0 0 AM EST Other fracture of right lower leg, subsequent encounter for closed fracture with routine healing [facility] Other fracture of right lower leg, subse quent encounter for closed fracture with routine healing Outpatient Referrer: NEO ROONEY MD 03/23/2019 12:00:0 0 AM EST Other fracture of right lower leg, subsequent encounter for closed fracture with routine healing [facility] Other fracture of right lower leg, subse quent encounter for closed fracture with routine healing [facility] [address] [place] [address], [place] [address] 03/19/2019 12:00:00 AM EST eCW1 ([facility]) [facility] [address] [place] [address], [place] [address] 03/18/2019 12:00:00 AM EST eCW1 ([facility]) [facility] [address] [place] [address], [place] [address] 03/18/2019 12:00:00 AM EST eCW1 ([facility]) [facility] [address] [place] [phone] 03/12/2019 12:00:00 AM EST eCW1 ([facility]) [facility] [address] [place] [address], [place] [address] 03/03/2019 12:00:00 AM EST [facility]CW1 [facility] Outpatient Attender: NEO ROONEY MD [id number] 02/23/2019 12:00:0 0 AM EST Other fracture of right lower leg, subsequent encounter for closed fracture with routine healing [facility] Other fracture of right lower leg, subse quent encounter for closed fracture with routine healing Outpatient Referrer: NEO ROONEY MD 02/23/2019 12:00:0 0 AM EST Other fracture of right lower leg, subsequent encounter for closed fracture with routine healing [facility] Other fracture of right lower leg, subse quent encounter for closed fracture with routine healing [address] [address] 02/22/2019 12:00:00 AM EST eCW1 ([facility]) Medications Medication Brand Name Start Date Product Form Dose Route Admi nistrative Instructions Pharmacy Instructions Status Indications Reaction Description Data Source(s) Sumatriptan 100 MG Oral Tablet Sumatriptan Succinate 04/03/2020 12:00:00 AM EST ORAL active MEDENT ( [facility]) Alprazolam 0.5 MG Oral Tablet Alprazolam 04/03/2020 12:00:00 AM EST ORAL active MEDENT ([facility]) topiramate 50 MG Oral Tablet Topiramate 04/03/2020 12:00:00 AM EST active MEDENT ([facility] ) 25 mg 03/30/2020 12:00:00 AM EST tablet 60 TAKE ONE TABLET BY MOUTH TWICE A DAY WITH FOOD TAKE ONE TABLET BY MOUTH TWICE A DAY WITH FOOD SOLD: 04/01/2020 [facility] Metoprolol Tartrate 25 MG Oral Tablet Metoprolol Tartrate 25 MG 03/29/2020 12:00:00 AM EST 1.0 {tablet_with_food} active Metoprolol Tartrate 25 MG eCW1 ([facility]) Metoprolol Tartrate 25 MG Oral Tablet Metoprolol Tartrate 25 MG 03/29/2020 12:00:00 AM EST 1.0 {tablet_with_food} active Metoprolol Tartrate 25 MG eCW1 ([facility]) Metoprolol Tartrate 25 MG Oral Tablet Metoprolol Tartrate 25 MG 03/29/2020 12:00:00 AM EST 1.0 {tablet_with_food} active Metoprolol Tartrate 25 MG eCW1 ([facility]) Metoprolol Tartrate 25 MG Oral Tablet Metoprolol Tartrate 25 MG 03/29/2020 12:00:00 AM EST 1.0 {tablet_with_food} active Metoprolol Tartrate 25 MG eCW1 ([facility]) Oxycodone Hydrochloride 5 MG Oral Tablet Oxycodone HCl 5 MG Oxycodone HCl 5 MG 03/27/2020 12:00:00 AM EST active Oxycodone HCl 5 MG eCW1 ([facility]) 5 mg 03/27/2020 12:00:00 AM EST tablet 30 TAKE ONE TABLET BY MOUTH EVERY 6 HOURS NEEDED MAXIMUM DAILY DOSE = 2 TAKE ONE TABLET BY MOUTH EVERY 6 HOURS A S NEEDED MAXIMUM DAILY DOSE = 2 SOLD: 03/27/2020 [facility] Oxycodone Hydrochloride 5 MG Oral Tablet Oxycodone HCl 5 MG Oxycodone HCl 5 MG 03/27/2020 12:00:00 AM EST active Oxycodone HCl 5 MG eCW1 ([facility]) Oxycodone Hydrochloride 5 MG Oral Tablet Oxycodone HCl 5 MG Oxycodone HCl 5 MG 03/27/2020 12:00:00 AM EST active Oxycodone HCl 5 MG eCW1 ([facility]) Oxycodone Hydrochloride 5 MG Oral Tablet Oxycodone HCl 5 MG Oxycodone HCl 5 MG 03/27/2020 12:00:00 AM EST active Oxycodone HCl 5 MG eCW1 ([facility]) Oxycodone Hydrochloride 5 MG Oral Tablet Oxycodone HCl 5 MG Oxycodone HCl 5 MG 03/27/2020 12:00:00 AM EST active Oxycodone HCl 5 MG eCW1 ([facility]) Prednisone 20 MG Oral Tablet PredniSONE 20 MG PredniSONE 20 MG 03/13/2020 12:00:00 AM EST 2.0 {tablets} active P redniSONE 20 MG eCW1 ([facility]) 20 mg 03/13/2020 12:00:00 AM EST tablet 4 TAKE TWO TABLETS BY MOUTH EVERY DAY TAKE TWO TABLETS BY MOUTH EVERY DAY SOLD: 03/17/2020 [facility] Prednisone 20 MG Oral Tablet PredniSONE 20 MG PredniSONE 20 MG 03/13/2020 12:00:00 AM EST 2.0 {tablets} suspended PredniSONE 20 MG eCW1 ([facility]) Prednisone 20 MG Oral Tablet PredniSONE 20 MG PredniSONE 20 MG 03/13/2020 12:00:00 AM EST 2.0 {tablets} suspended PredniSONE 20 MG eCW1 ([facility]) Prednisone 20 MG Oral Tablet PredniSONE 20 MG PredniSONE 20 MG 03/13/2020 12:00:00 AM EST 2.0 {tablets} suspended PredniSONE 20 MG eCW1 ([facility]) Prednisone 20 MG Oral Tablet PredniSONE 20 MG PredniSONE 20 MG 03/13/2020 12:00:00 AM EST 2.0 {tablets} suspended PredniSONE 20 MG eCW1 ([facility]) Prednisone 20 MG Oral Tablet PredniSONE 20 MG PredniSONE 20 MG 03/13/2020 12:00:00 AM EST 2.0 {tablets} active P redniSONE 20 MG eCW1 ([facility]) atorvastatin 40 MG Oral Tablet ATORVASTATIN CALCIUM 03/11/2020 1 2:00:00 AM EST tablet 90 TAKE ONE TABLET BY MOUTH EVERY D AY TAKE ONE TABLET BY MOUTH EVERY DAY SOLD: 03/13/2020 [facility] pantoprazole 40 MG Delayed Release Oral Tablet PANTOPRAZOLE SODIUM 03/11/2020 12:00:00 AM EST tablet,delayed release (DR/EC) 180 T LORA ONE TABLET BY MOUTH TWICE A DAY TAKE ONE TABLET BY MOUTH TWICE A DAY SOLD: 03/13/2020 [facility] 20 mg 03/08/2020 12:00:00 AM EST tablet 15 TAKE THREE TABLETS BY MOUTH EVERY DAY TAKE THREE TABLETS BY MOUTH EVERY DAY SOLD: 03/08/2020 [facility] 20 mg 03/08/2020 12:00:00 AM EST tablet 90 TAKE ONE TABLET BY MOUTH EVERY DAY TAKE ONE TABLET BY MOUTH EVERY DAY SOLD: 03/13/2020 [facility] Oxycodone Hydrochloride 5 MG Oral Tablet Oxycodone HCl 5 MG Oxycodone HCl 5 MG 02/28/2020 12:00:00 AM EST active Oxycodone HCl 5 MG eCW1 ([facility]) Oxycodone Hydrochloride 5 MG Oral Tablet Oxycodone HCl 5 MG Oxycodone HCl 5 MG 02/28/2020 12:00:00 AM EST active Oxycodone HCl 5 MG eCW1 ([facility]) Oxycodone Hydrochloride 5 MG Oral Tablet Oxycodone HCl 5 MG Oxycodone HCl 5 MG 02/28/2020 12:00:00 AM EST active Oxycodone HCl 5 MG eCW1 ([facility]) 5 mg 02/28/2020 12:00:00 AM EST tablet 30 TAKE ONE TABLET BY MOUTH EVERY 6 HOURS NEEDED MAXIMUM DAILY DOSE = 2 TAKE ONE TABLET BY MOUTH EVERY 6 HOURS A S NEEDED MAXIMUM DAILY DOSE = 2 SOLD: 02/29/2020 [facility] 5 mg 01/29/2020 12:00:00 AM EDT tablet 30 TAKE ONE TABLET BY MOUTH EVERY 6 HOURS NEEDED MAXIMUM DAILY DOSE = 2 TAKE ONE TABLET BY MOUTH EVERY 6 HOURS A S NEEDED MAXIMUM DAILY DOSE = 2 SOLD: 01/30/2020 [facility] Oxycodone Hydrochloride 5 MG Oral Tablet Oxycodone HCl 5 MG Oxycodone HCl 5 MG 01/27/2020 12:00:00 AM EDT active Oxycodone HCl 5 MG eCW1 ([facility]) Oxycodone Hydrochloride 5 MG Oral Tablet Oxycodone HCl 5 MG Oxycodone HCl 5 MG 01/27/2020 12:00:00 AM EDT active Oxycodone HCl 5 MG eCW1 ([facility]) Oxycodone Hydrochloride 5 MG Oral Tablet Oxycodone HCl 5 MG Oxycodone HCl 5 MG 01/27/2020 12:00:00 AM EDT active Oxycodone HCl 5 MG eCW1 ([facility]) Oxycodone Hydrochloride 5 MG Oral Tablet Oxycodone HCl 5 MG Oxycodone HCl 5 MG 01/27/2020 12:00:00 AM EDT active Oxycodone HCl 5 MG eCW1 ([facility]) 80 mg 01/20/2020 12:00:00 AM EDT tablet 90 TAKE ONE TABLET BY MOUTH THREE TIMES A DAY TAKE ONE TABLET BY MOUTH THREE TIMES A DAY SOLD: 01/23/2020 [facility] 80 mg 01/20/2020 12:00:00 AM EDT tablet 90 TAKE ONE TABLET BY MOUTH THREE TIMES A DAY TAKE ONE TABLET BY MOUTH THREE TIMES A DAY SOLD: 03/28/2020 [facility] Verapamil hydrochloride 80 MG Oral Tablet Verapamil HC l 80 MG Verapamil HCl 80 MG 01/19/2020 12:00:00 AM EDT 1.0 {tablet} activ e Verapamil HCl 80 MG eCW1 ([facility]) Verapamil hydrochloride 80 MG Oral Tablet Verapamil HC l 80 MG Verapamil HCl 80 MG 01/19/2020 12:00:00 AM EDT 1.0 {tablet} activ e Verapamil HCl 80 MG eCW1 ([facility]) Verapamil hydrochloride 80 MG Oral Tablet Verapamil HC l 80 MG Verapamil HCl 80 MG 01/19/2020 12:00:00 AM EDT 1.0 {tablet} activ e Verapamil HCl 80 MG eCW1 ([facility]) Verapamil hydrochloride 80 MG Oral Tablet Verapamil HC l 80 MG Verapamil HCl 80 MG 01/19/2020 12:00:00 AM EDT 1.0 {tablet} activ e Verapamil HCl 80 MG eCW1 ([facility]) Verapamil hydrochloride 80 MG Oral Tablet Verapamil HC l 80 MG Verapamil HCl 80 MG 01/19/2020 12:00:00 AM EDT 1.0 {tablet} activ e Verapamil HCl 80 MG eCW1 ([facility]) Verapamil hydrochloride 80 MG Oral Tablet Verapamil HC l 80 MG Verapamil HCl 80 MG 01/19/2020 12:00:00 AM EDT 1.0 {tablet} activ e Verapamil HCl 80 MG eCW1 ([facility]) Verapamil hydrochloride 80 MG Oral Tablet Verapamil HC l 80 MG Verapamil HCl 80 MG 01/19/2020 12:00:00 AM EDT 1.0 {tablet} activ e Verapamil HCl 80 MG eCW1 ([facility]) Verapamil hydrochloride 80 MG Oral Tablet Verapamil HC l 80 MG Verapamil HCl 80 MG 01/19/2020 12:00:00 AM EDT 1.0 {tablet} activ e Verapamil HCl 80 MG eCW1 ([facility]) 2 % 01/13/2020 12:00:00 AM EDT cream 45 INSERT 1 APPLICATORFUL VAGINALLY AT BEDTIME FOR 7 DAYS INSERT 1 APPLICATORFUL VAGINALLY AT BEDTIME FOR 7 DAYS SOLD: 01/13/2020 [facility] 5 mg 12/31/2019 12:00:00 AM EDT tablet 60 TAKE ONE TABLET BY MOUTH TWICE A DAY MAXIMUM DAILY DOSE = 2 TAKE ONE TABLET BY MOUTH TWICE A DAY MAX IMUM DAILY DOSE = 2 SOLD: 12/31/2019 [facility] 2.5 mg /3 mL (0.083 %) 12/29/2019 12:00:00 AM EDT solu tion for nebulization 75 INHALE ONE VIAL VIA NEBULIZER THREE TIME S A DAY NEEDED INHALE ONE VIAL VIA NEBULIZER THREE TIMES A DAY NEEDED SOLD: 12/30/2019 [facility] 90 mcg/actuation 12/29/2019 12:00:00 AM EDT HFA aerosol inha ler 25 INHALE TWO PUFFS BY MOUTH EVERY 4 HOURS NEEDED INHALE TWO PUFFS BY MOUTH EVERY 4 HOURS NEEDED SOLD: 12/30/2019 [facility] 750 mg 12/22/2019 12:00:00 AM EDT tablet 45 TAKE ONE TABLET BY MOUTH TWICE A DAY NEEDED SEVERE MUSCLE SPASM TAKE ONE TABLET BY MOUTH TWICE A DAY NEEDED SEVERE MUSCLE SPASM SOLD: 12/24/2019 [facility] 875-125 mg 12/16/2019 12:00:00 AM EDT tablet 14 TAKE ONE TABLET BY MOUTH TWICE A DAY FOR 7 DAYS TAKE ONE TABLET BY MOUTH TWICE A DAY FOR 7 DAYS SOLD: 12/17/2019 [facility] 500 mg 12/16/2019 12:00:00 AM EDT tablet 14 TAKE ONE TABLET BY MOUTH TWICE A DAY WITH FOOD FOR 7 DAYS TAKE ONE TABLET BY MOUTH TWICE A DAY WIT H FOOD FOR 7 DAYS SOLD: 12/17/2019 [facility] montelukast 10 MG Oral Tablet MONTELUKAST SODIUM 12/10/2019 12:0 0:00 AM EDT tablet 90 TAKE ONE TABLET BY MOUTH EVERY E VENING TAKE ONE TABLET BY MOUTH EVERY EVENING SOLD: 03/13/2020 [facility] montelukast 10 MG Oral Tablet MONTELUKAST SODIUM 12/10/2019 12:0 0:00 AM EDT tablet 90 TAKE ONE TABLET BY MOUTH EVERY E VENING TAKE ONE TABLET BY MOUTH EVERY EVENING SOLD: 12/13/2019 [facility] 300 mg 12/07/2019 12:00:00 AM EDT capsule 90 TAKE ONE CAPSULE BY MOUTH THREE TIMES A DAY TAKE ONE CAPSULE BY MOUTH THREE TIMES A DAY SOLD: 12/13/2019 [facility] 5 mg 11/19/2019 12:00:00 AM EDT tablet 60 TAKE ONE TABLET BY MOUTH TWICE A DAY MAXIMUM DAILY DOSE = 2 TABLETS TAKE ONE TABLET BY MOUTH TWICE A DAY MAX IMUM DAILY DOSE = 2 TABLETS SOLD: 11/22/2019 [facility] Oxycodone Hydrochloride 5 MG Oral Tablet Oxycodone HCl 5 MG Oxycodone HCl 5 MG 10/20/2019 12:00:00 AM EDT active Oxycodone HCl 5 MG eCW1 ([facility]) 5 mg 10/20/2019 12:00:00 AM EDT tablet 30 TAKE ONE TABLET BY MOUTH EVERY 6 HOURS NEEDED * MAXIMUM DAILY DOSE = 2 TAKE ONE TABLET BY MOUTH EVERY 6 HOURS NEEDED * MAXIMUM DAILY DOSE = 2 SOLD: 10/21/2019 [facility] Oxycodone Hydrochloride 5 MG Oral Tablet Oxycodone HCl 5 MG Oxycodone HCl 5 MG 10/20/2019 12:00:00 AM EDT active Oxycodone HCl 5 MG eCW1 ([facility]) Oxycodone Hydrochloride 5 MG Oral Tablet Oxycodone HCl 5 MG Oxycodone HCl 5 MG 09/20/2019 12:00:00 AM EDT active Oxycodone HCl 5 MG eCW1 ([facility]) 5 mg 09/20/2019 12:00:00 AM EDT tablet 30 TAKE 1 TABLET EVERY 6 HOURS NEEDED MAXIMUM DAILY DOSE = 2 TAKE 1 TABLET EVERY 6 HOURS NEEDED RAMANDEEP CALLAHAN DAILY DOSE = 2 SOLD: 09/21/2019 [facility] 20 mg 09/06/2019 12:00:00 AM EDT tablet 90 TAKE ONE TABLET BY MOUTH EVERY DAY TAKE ONE TABLET BY MOUTH EVERY DAY SOLD: 09/14/2019 [facility] 40 mg 09/06/2019 12:00:00 AM EDT tablet,delayed release (DR/EC) 180 TAKE ONE TABLET BY MOUTH TWICE A DAY TAKE ONE TABLET BY MOUTH TWICE A DAY SOLD: 09/14/2019 [facility] 40 mg 09/06/2019 12:00:00 AM EDT tablet,delayed release (DR/EC) 180 TAKE ONE TABLET BY MOUTH TWICE A DAY TAKE ONE TABLET BY MOUTH TWICE A DAY SOLD: 12/13/2019 [facility] 40 mg 09/06/2019 12:00:00 AM EDT tablet 90 TAKE ONE TABLET BY MOUTH EVERY DAY TAKE ONE TABLET BY MOUTH EVERY DAY SOLD: 09/14/2019 [facility] 20 mg 09/06/2019 12:00:00 AM EDT tablet 90 TAKE ONE TABLET BY MOUTH EVERY DAY TAKE ONE TABLET BY MOUTH EVERY DAY SOLD: 12/13/2019 [facility] atorvastatin 40 MG Oral Tablet ATORVASTATIN CALCIUM 09/06/2019 1 2:00:00 AM EDT tablet 90 TAKE ONE TABLET BY MOUTH EVERY D AY TAKE ONE TABLET BY MOUTH EVERY DAY SOLD: 12/13/2019 [facility] Oxycodone Hydrochloride 5 MG Oral Tablet Oxycodone HCl 5 MG Oxycodone HCl 5 MG 08/19/2019 12:00:00 AM EDT active Oxycodone HCl 5 MG eCW1 ([facility]) Oxycodone Hydrochloride 5 MG Oral Tablet Oxycodone HCl 5 MG Oxycodone HCl 5 MG 08/19/2019 12:00:00 AM EDT active Oxycodone HCl 5 MG eCW1 ([facility]) 5 mg 08/19/2019 12:00:00 AM EDT tablet 30 TAKE ONE TABLET BY MOUTH EVERY 6 HOURS NEEDED MAXIMUM DAILY DOSE = 2 TAKE ONE TABLET BY MOUTH EVERY 6 HOURS A S NEEDED MAXIMUM DAILY DOSE = 2 SOLD: 08/20/2019 [facility] Oxycodone Hydrochloride 5 MG Oral Tablet Oxycodone HCl 5 MG Oxycodone HCl 5 MG 08/19/2019 12:00:00 AM EDT active Oxycodone HCl 5 MG eCW1 ([facility]) Oxycodone Hydrochloride 5 MG Oral Tablet Oxycodone HCl 5 MG Oxycodone HCl 5 MG 08/19/2019 12:00:00 AM EDT active 1 tablet as needed MDD 2 eCW1 ([facility]) Oxycodone Hydrochloride 5 MG Oral Tablet Oxycodone HCl 5 MG Oxycodone HCl 5 MG 07/21/2019 12:00:00 AM EDT active 1 tablet as needed MDD 2 eCW1 ([facility]) 5 mg 07/21/2019 12:00:00 AM EDT tablet 30 TAKE ONE TABLET BY MOUTH EVERY 6 HOURS NEEDED, MAXIMUM DAILY DOSE = 2 TABLETS TAKE ONE TABLET BY MOUTH EVERY 6 HOURS NEEDED, MAXIMUM DAILY DOSE = 2 TABLETS SOLD: 07/22/2019 [facility] BLOOD-GLUCOSE METER 07/02/2019 12:00:00 AM EDT misc 1 TEST DAILY TEST DAILY SOLD: 07/03/2019 [facility] LANCETS 07/02/2019 12:00:00 AM EDT misc 50 USE A S DIRECTED USE DIRECTED SOLD: 07/03/2019 [facility] BLOOD SUGAR DIAGNOSTIC 07/02/2019 12:00:00 AM EDT strip 50 USE DIRECTED ONCE DAILY USE DIRECTED ONCE DAILY SOLD: 07/03/2019 [facility] Blood Glucose System Binu - Blood Glucose System - 2019 12:00:00 AM EDT active Blood Glucose Sys tem Binu - eCW1 ([facility]) Blood Glucose System Binu - Blood Glucose System 2019 12:00:00 AM EDT active Blood Glucose Sys tem Binu - eCW1 ([facility]) Blood Glucose System Binu - Blood Glucose System 2019 12:00:00 AM EDT active Blood Glucose Sys tem Binu - eCW1 ([facility]) Blood Glucose System Binu - Blood Glucose System 2019 12:00:00 AM EDT active Blood Glucose Sys tem Binu - eCW1 ([facility]) Blood Glucose System Binu - Blood Glucose System 2019 12:00:00 AM EDT active Blood Glucose Sys tem Binu - eCW1 ([facility]) Blood Glucose System Binu - Blood Glucose System 2019 12:00:00 AM EDT active Blood Glucose Sys tem Binu - eCW1 ([facility]) Blood Glucose System Binu - Blood Glucose System 2019 12:00:00 AM EDT active meter eCW1 ([facility]) Blood Glucose System Binu - Blood Glucose System 2019 12:00:00 AM EDT active Blood Glucose Sys tem Binu - eCW1 ([facility]) Blood Glucose System Binu - Blood Glucose System 2019 12:00:00 AM EDT active Blood Glucose Sys tem Binu - eCW1 ([facility]) Blood Glucose System Binu - Blood Glucose System 2019 12:00:00 AM EDT active Blood Glucose Sys tem Binu - eCW1 ([facility]) Blood Glucose System Binu - Blood Glucose System 2019 12:00:00 AM EDT active Blood Glucose Sys tem Binu - eCW1 ([facility]) Blood Glucose System Binu - Blood Glucose System 2019 12:00:00 AM EDT active Blood Glucose Sys tem Binu - eCW1 ([facility]) Blood Glucose System Binu - Blood Glucose System 2019 12:00:00 AM EDT active Blood Glucose Sys tem Binu - eCW1 ([facility]) Blood Glucose System Binu - Blood Glucose System 2019 12:00:00 AM EDT active Blood Glucose Sys tem Binu - eCW1 ([facility]) Blood Glucose System Binu - Blood Glucose System 2019 12:00:00 AM EDT active Blood Glucose Sys tem Binu - eCW1 ([facility]) Blood Glucose System Binu - Blood Glucose System 2019 12:00:00 AM EDT active Blood Glucose Sys tem Binu - eCW1 ([facility]) Blood Glucose System Binu - Blood Glucose System 2019 12:00:00 AM EDT active Blood Glucose Sys tem Binu - eCW1 ([facility]) Blood Glucose System Binu - Blood Glucose System 2019 12:00:00 AM EDT active Blood Glucose Sys tem Binu - eCW1 ([facility]) Blood Glucose System Binu - Blood Glucose System 2019 12:00:00 AM EDT active Blood Glucose Sys tem Binu - eCW1 ([facility]) One Touch Ultra Test Strips 1 UNK 06/30/2019 12:00:00 AM EDT active One Touch Ultra Test Strips 1 eCW1 ([facility]) Lancets 1 UNK 06/30/2019 12:00:00 AM EDT active Lancets 1 eCW1 ([facility]) Lancets Misc 1 UNK 06/30/2019 12:00:00 AM EDT active Lancets Misc 1 eCW1 ([facility]) Lancets 1 UNK 06/30/2019 12:00:00 AM EDT active Lancets 1 eCW1 ([facility]) One Touch Ultra Test Strips 1 UNK 06/30/2019 12:00:00 AM EDT active One Touch Ultra Test Strips 1 eCW1 ([facility]) One Touch Ultra Test Strips 1 UNK 06/30/2019 12:00:00 AM EDT active One Touch Ultra Test Strips 1 eCW1 ([facility]) One Touch Ultra Test Strips 1 UNK 06/30/2019 12:00:00 AM EDT active One Touch Ultra Test Strips 1 eCW1 ([facility]) Lancets 1 UNK 06/30/2019 12:00:00 AM EDT active Lancets 1 eCW1 ([facility]) One Touch Ultra Test Strips 1 UNK 06/30/2019 12:00:00 AM EDT active One Touch Ultra Test Strips 1 eCW1 ([facility]) Lancets 1 UNK 06/30/2019 12:00:00 AM EDT active Lancets 1 eCW1 ([facility]) One Touch Ultra Test Strips 1 UNK 06/30/2019 12:00:00 AM EDT active One Touch Ultra Test Strips 1 eCW1 ([facility]) Lancets 1 UNK 06/30/2019 12:00:00 AM EDT active Lancets 1 eCW1 ([facility]) One Touch Ultra Test Strips 1 UNK 06/30/2019 12:00:00 AM EDT active One Touch Ultra Test Strips 1 eCW1 ([facility]) One Touch Ultra Test Strips 1 UNK 06/30/2019 12:00:00 AM EDT active as directed eCW1 ([facility]) Lancets 1 UNK 06/30/2019 12:00:00 AM EDT active Lancets 1 eCW1 ([facility]) One Touch Ultra Test Strips 1 UNK 06/30/2019 12:00:00 AM EDT active One Touch Ultra Test Strips 1 eCW1 ([facility]) One Touch Ultra Test Strips 1 UNK 06/30/2019 12:00:00 AM EDT active One Touch Ultra Test Strips 1 eCW1 ([facility]) One Touch Ultra Test Strips 1 UNK 06/30/2019 12:00:00 AM EDT active One Touch Ultra Test Strips 1 eCW1 ([facility]) Lancets Misc 1 UNK 06/30/2019 12:00:00 AM EDT active Lancets Misc 1 eCW1 ([facility]) One Touch Ultra Test Strips 1 UNK 06/30/2019 12:00:00 AM EDT active One Touch Ultra Test Strips 1 eCW1 ([facility]) One Touch Ultra Test Strips 1 UNK 06/30/2019 12:00:00 AM EDT active One Touch Ultra Test Strips 1 eCW1 ([facility]) Lancets 1 UNK 06/30/2019 12:00:00 AM EDT active Lancets 1 eCW1 ([facility]) One Touch Ultra Test Strips 1 UNK 06/30/2019 12:00:00 AM EDT active One Touch Ultra Test Strips 1 eCW1 ([facility]) Lancets 1 UNK 06/30/2019 12:00:00 AM EDT active Lancets 1 eCW1 ([facility]) Lancets 1 UNK 06/30/2019 12:00:00 AM EDT active Lancets 1 eCW1 ([facility]) One Touch Ultra Test Strips 1 UNK 06/30/2019 12:00:00 AM EDT active One Touch Ultra Test Strips 1 eCW1 ([facility]) Lancets 1 UNK 06/30/2019 12:00:00 AM EDT active Lancets 1 eCW1 ([facility]) One Touch Ultra Test Strips 1 UNK 06/30/2019 12:00:00 AM EDT active One Touch Ultra Test Strips 1 eCW1 ([facility]) Lancets 1 UNK 06/30/2019 12:00:00 AM EDT active Lancets 1 eCW1 ([facility]) Lancets 1 UNK 06/30/2019 12:00:00 AM EDT active Lancets 1 eCW1 ([facility]) Lancets 1 UNK 06/30/2019 12:00:00 AM EDT active as directed eCW1 ([facility]) Lancets 1 K 06/30/2019 12:00:00 AM EDT active Lancets 1 eCW1 ([facility]) One Touch Ultra Test Strips 1 K 06/30/2019 12:00:00 AM EDT active One Touch Ultra Test Strips 1 eCW1 ([facility]) Lancets 1 K 06/30/2019 12:00:00 AM EDT active Lancets 1 eCW1 ([facility]) Lancets 1 [facility] 06/30/2019 12:00:00 AM EDT active Lancets 1 eCW1 ([facility]) One Touch Ultra Test Strips 1 [facility] 06/30/2019 12:00:00 AM EDT active One Touch Ultra Test Strips 1 eCW1 ([facility]) Lancets 1 [facility] 06/30/2019 12:00:00 AM EDT active Lancets 1 eCW1 ([facility]) One Touch Ultra Test Strips 1 [facility] 06/30/2019 12:00:00 AM EDT active One Touch Ultra Test Strips 1 eCW1 ([facility]) montelukast 10 MG Oral Tablet MONTELUKAST SODIUM 06/07/2019 12:0 0:00 AM EST tablet 90 TAKE ONE TABLET BY MOUTH EVERY D AY IN THE EVENING TAKE ONE TABLET BY MOUTH EVERY DAY IN THE EVENING SOLD: 09/14/2019 [facility] montelukast 10 MG Oral Tablet MONTELUKAST SODIUM 06/07/2019 12:0 0:00 AM EST tablet 90 TAKE ONE TABLET BY MOUTH EVERY D AY IN THE EVENING TAKE ONE TABLET BY MOUTH EVERY DAY IN THE EVENING SOLD: 06/09/2019 [facility] 40 mg 04/12/2019 12:00:00 AM EST tablet 60 TAKE ONE TABLET BY MOUTH EVERY DAY TAKE ONE TABLET BY MOUTH EVERY DAY SOLD: 04/15/2019 [facility] 40 mg 04/12/2019 12:00:00 AM EST tablet 90 TAKE ONE TABLET BY MOUTH EVERY DAY TAKE ONE TABLET BY MOUTH EVERY DAY SOLD: 06/09/2019 [facility] 750 mg 03/29/2019 12:00:00 AM EST tablet 45 TAKE ONE TABLET BY MOUTH EVERY 8 HOURS NEEDED TAKE ONE TABLET BY MOUTH EVERY 8 HOURS NEEDED SOLD: 04/01/2019 [facility] 750 mg 03/29/2019 12:00:00 AM EST tablet 45 TAKE ONE TABLET BY MOUTH EVERY 8 HOURS NEEDED TAKE ONE TABLET BY MOUTH EVERY 8 HOURS NEEDED SOLD: 07/12/2019 [facility] 300 mg 03/29/2019 12:00:00 AM EST capsule 90 TAKE ONE CAPSULE BY MOUTH THREE TIMES A DAY TAKE ONE CAPSULE BY MOUTH THREE TIMES A DAY SOLD: 04/01/2019 [facility] Methocarbamol 750 MG Oral Tablet [Robaxin] Robaxin-750 750 MG Robaxin-750 750 MG 03/26/2019 12:00:00 AM EST 1.0 {tablet} active Robaxin-750 750 MG eCW1 ([facility]) Methocarbamol 750 MG Oral Tablet [Robaxin] Robaxin-750 750 MG Robaxin-750 750 MG 03/26/2019 12:00:00 AM EST active 1 tablet eCW1 ([facility]) Methocarbamol 750 MG Oral Tablet [Robaxin] Robaxin-750 750 MG Robaxin-750 750 MG 03/26/2019 12:00:00 AM EST 1.0 {tablet} active Robaxin-750 750 MG eCW1 ([facility]) Methocarbamol 750 MG Oral Tablet [Robaxin] Robaxin-750 750 MG Robaxin-750 750 MG 03/26/2019 12:00:00 AM EST 1.0 {tablet} active Robaxin-750 750 MG eCW1 ([facility]) Methocarbamol 750 MG Oral Tablet [Robaxin] Robaxin-750 750 MG Robaxin-750 750 MG 03/26/2019 12:00:00 AM EST 1.0 {tablet} active Robaxin-750 750 MG eCW1 ([facility]) Methocarbamol 750 MG Oral Tablet [Robaxin] Robaxin-750 750 MG Robaxin-750 750 MG 03/26/2019 12:00:00 AM EST 1.0 {tablet} active Robaxin-750 750 MG eCW1 ([facility]) Methocarbamol 750 MG Oral Tablet [Robaxin] Robaxin-750 750 MG Robaxin-750 750 MG 03/26/2019 12:00:00 AM EST 1.0 {tablet} active Robaxin-750 750 MG eCW1 ([facility]) Methocarbamol 750 MG Oral Tablet [Robaxin] Robaxin-750 750 MG Robaxin-750 750 MG 03/26/2019 12:00:00 AM EST 1.0 {tablet} active Robaxin-750 750 MG eCW1 ([facility]) Methocarbamol 750 MG Oral Tablet [Robaxin] Robaxin-750 750 MG Robaxin-750 750 MG 03/26/2019 12:00:00 AM EST 1.0 {tablet} active Robaxin-750 750 MG eCW1 ([facility]) Methocarbamol 750 MG Oral Tablet [Robaxin] Robaxin-750 750 MG Robaxin-750 750 MG 03/26/2019 12:00:00 AM EST 1.0 {tablet} active Robaxin-750 750 MG eCW1 ([facility]) Methocarbamol 750 MG Oral Tablet [Robaxin] Robaxin-750 750 MG Robaxin-750 750 MG 03/26/2019 12:00:00 AM EST 1.0 {tablet} active Robaxin-750 750 MG eCW1 ([facility]) Methocarbamol 750 MG Oral Tablet [Robaxin] Robaxin-750 750 MG Robaxin-750 750 MG 03/26/2019 12:00:00 AM EST 1.0 {tablet} active Robaxin-750 750 MG eCW1 ([facility]) Methocarbamol 750 MG Oral Tablet [Robaxin] Robaxin-750 750 MG Robaxin-750 750 MG 03/26/2019 12:00:00 AM EST 1.0 {tablet} active Robaxin-750 750 MG eCW1 ([facility]) Methocarbamol 750 MG Oral Tablet [Robaxin] Robaxin-750 750 MG Robaxin-750 750 MG 03/26/2019 12:00:00 AM EST 1.0 {tablet} active Robaxin-750 750 MG eCW1 ([facility]) Methocarbamol 750 MG Oral Tablet [Robaxin] Robaxin-750 750 MG Robaxin-750 750 MG 03/26/2019 12:00:00 AM EST 1.0 {tablet} active Robaxin-750 750 MG eCW1 ([facility]) Methocarbamol 750 MG Oral Tablet [Robaxin] Robaxin-750 750 MG Robaxin-750 750 MG 03/26/2019 12:00:00 AM EST 1.0 {tablet} active Robaxin-750 750 MG eCW1 ([facility]) Methocarbamol 750 MG Oral Tablet [Robaxin] Robaxin-750 750 MG Robaxin-750 750 MG 03/26/2019 12:00:00 AM EST active 1 tablet eCW1 ([facility]) Methocarbamol 750 MG Oral Tablet [Robaxin] Robaxin-750 750 MG Robaxin-750 750 MG 03/26/2019 12:00:00 AM EST 1.0 {tablet} active Robaxin-750 750 MG eCW1 ([facility]) Methocarbamol 750 MG Oral Tablet [Robaxin] Robaxin-750 750 MG Robaxin-750 750 MG 03/26/2019 12:00:00 AM EST 1.0 {tablet} active Robaxin-750 750 MG eCW1 ([facility]) Methocarbamol 750 MG Oral Tablet [Robaxin] Robaxin-750 750 MG Robaxin-750 750 MG 03/26/2019 12:00:00 AM EST 1.0 {tablet} active Robaxin-750 750 MG eCW1 ([facility]) Methocarbamol 750 MG Oral Tablet [Robaxin] Robaxin-750 750 MG Robaxin-750 750 MG 03/26/2019 12:00:00 AM EST active 1 tablet eCW1 ([facility]) Methocarbamol 750 MG Oral Tablet [Robaxin] Robaxin-750 750 MG Robaxin-750 750 MG 03/26/2019 12:00:00 AM EST 1.0 {tablet} active Robaxin-750 750 MG eCW1 ([facility]) Nebulizer Compressor - UNK 03/19/2019 12:00:00 AM EST active Nebulizer Compressor - eCW1 ([facility]) Nebulizer Compressor - UNK 03/19/2019 12:00:00 AM EST active Nebulizer Compressor - eCW1 ([facility]) Nebulizer Compressor - UNK 03/19/2019 12:00:00 AM EST active Nebulizer Compressor - eCW1 ([facility]) Nebulizer Compressor - UNK 03/19/2019 12:00:00 AM EST active Nebulizer Compressor - eCW1 ([facility]) Nebulizer Compressor - UNK 03/19/2019 12:00:00 AM EST active as directed eCW1 ([facility]) Nebulizer Compressor - UNK 03/19/2019 12:00:00 AM EST active Nebulizer Compressor - eCW1 ([facility]) Nebulizer Compressor - UNK 03/19/2019 12:00:00 AM EST active Nebulizer Compressor - eCW1 ([facility]) Nebulizer Compressor - UNK 03/19/2019 12:00:00 AM EST active Nebulizer Compressor - eCW1 ([facility]) Nebulizer Compressor - UNK 03/19/2019 12:00:00 AM EST active Nebulizer Compressor - eCW1 ([facility]) Nebulizer Compressor - UNK 03/19/2019 12:00:00 AM EST active as directed eCW1 ([facility]) Nebulizer Compressor - UNK 03/19/2019 12:00:00 AM EST active Nebulizer Compressor - eCW1 ([facility]) Nebulizer Compressor - UNK 03/19/2019 12:00:00 AM EST active Nebulizer Compressor - eCW1 ([facility]) Nebulizer Compressor - UNK 03/19/2019 12:00:00 AM EST active Nebulizer Compressor - eCW1 ([facility]) Nebulizer Compressor - UNK 03/19/2019 12:00:00 AM EST active Nebulizer Compressor - eCW1 ([facility]) Nebulizer Compressor - UNK 03/19/2019 12:00:00 AM EST active Nebulizer Compressor - eCW1 ([facility]) Nebulizer Compressor - UNK 03/19/2019 12:00:00 AM EST active Nebulizer Compressor - eCW1 ([facility]) Nebulizer Compressor - UNK 03/19/2019 12:00:00 AM EST active as directed eCW1 ([facility]) Nebulizer Compressor - UNK 03/19/2019 12:00:00 AM EST active Nebulizer Compressor - eCW1 ([facility]) Nebulizer Compressor - UNK 03/19/2019 12:00:00 AM EST active Nebulizer Compressor - eCW1 ([facility]) Nebulizer Compressor - UNK 03/19/2019 12:00:00 AM EST active Nebulizer Compressor - eCW1 ([facility]) Nebulizer Compressor - UNK 03/19/2019 12:00:00 AM EST active as directed eCW1 ([facility]) Nebulizer Compressor - UNK 03/19/2019 12:00:00 AM EST active Nebulizer Compressor - eCW1 ([facility]) Nebulizer Compressor - UNK 03/19/2019 12:00:00 AM EST active Nebulizer Compressor - eCW1 ([facility]) Nebulizers - UNK 03/18/2019 12:00:00 AM EST activ e as directed eCW1 ([facility]) Nebulizers - UNK 03/18/2019 12:00:00 AM EST activ e Nebulizers - eCW1 ([facility]) Nebulizers - UNK 03/18/2019 12:00:00 AM EST activ e Nebulizers - eCW1 ([facility]) Nebulizers - UNK 03/18/2019 12:00:00 AM EST activ e Nebulizers - eCW1 ([facility]) Nebulizers - UNK 03/18/2019 12:00:00 AM EST activ e as directed eCW1 ([facility]) Nebulizers - UNK 03/18/2019 12:00:00 AM EST activ e Nebulizers - eCW1 ([facility]) Nebulizers - UNK 03/18/2019 12:00:00 AM EST activ e Nebulizers - eCW1 ([facility]) Nebulizers - UNK 03/18/2019 12:00:00 AM EST activ e Nebulizers - eCW1 ([facility]) Nebulizers - UNK 03/18/2019 12:00:00 AM EST activ e Nebulizers - eCW1 ([facility]) Nebulizers - UNK 03/18/2019 12:00:00 AM EST activ e Nebulizers - eCW1 ([facility]) Nebulizers - UNK 03/18/2019 12:00:00 AM EST activ e Nebulizers - eCW1 ([facility]) Nebulizers - UNK 03/18/2019 12:00:00 AM EST activ e Nebulizers - eCW1 ([facility]) Nebulizers - UNK 03/18/2019 12:00:00 AM EST activ e Nebulizers - eCW1 ([facility]) Nebulizers - UNK 03/18/2019 12:00:00 AM EST activ e Nebulizers - eCW1 ([facility]) Nebulizers - UNK 03/18/2019 12:00:00 AM EST activ e Nebulizers - eCW1 ([facility]) Nebulizers - UNK 03/18/2019 12:00:00 AM EST activ e Nebulizers - eCW1 ([facility]) Nebulizers - UNK 03/18/2019 12:00:00 AM EST activ e Nebulizers - eCW1 ([facility]) Nebulizers - UNK 03/18/2019 12:00:00 AM EST activ e Nebulizers - eCW1 ([facility]) Nebulizers - UNK 03/18/2019 12:00:00 AM EST activ e Nebulizers - eCW1 ([facility]) Nebulizers - UNK 03/18/2019 12:00:00 AM EST activ e as directed eCW1 ([facility]) Nebulizers - UNK 03/18/2019 12:00:00 AM EST activ e as directed eCW1 ([facility]) Nebulizers - UNK 03/18/2019 12:00:00 AM EST activ e Nebulizers - eCW1 ([facility]) Nebulizers - UNK 03/18/2019 12:00:00 AM EST activ e Nebulizers - eCW1 ([facility]) 20 mg 03/17/2019 12:00:00 AM EST tablet 15 TAKE THREE TABLETS BY MOUTH EVERY DAY TAKE THREE TABLETS BY MOUTH EVERY DAY SOLD: 03/20/2019 [facility] 250 mg 03/17/2019 12:00:00 AM EST tablet 6 TAKE TWO TABLETS BY MOUTH AT ONCE ON THE FIRST DAY THEN TAKE ONE DAILY THEREAFTER TAKE TWO TABLETS BY MOUTH AT ONCE ON THE FIRST DAY THEN TAKE ONE DAILY THEREAFTER SOLD: 03/20/2019 [facility] 40 mg 03/09/2019 12:00:00 AM EST tablet,delayed release (DR/EC) 180 TAKE ONE TABLET BY MOUTH TWICE A DAY TAKE ONE TABLET BY MOUTH TWICE A DAY SOLD: 06/09/2019 [facility] 40 mg 03/09/2019 12:00:00 AM EST tablet,delayed release (DR/EC) 180 TAKE ONE TABLET BY MOUTH TWICE A DAY TAKE ONE TABLET BY MOUTH TWICE A DAY SOLD: 03/13/2019 [facility] 60 mg 02/01/2019 12:00:00 AM EDT capsule,delayed release (DR/EC) 30 TAKE ONE CAPSULE BY MOUTH EVERY DAY TAKE ONE CAPSULE BY MOUTH EVERY DAY SOLD: 07/12/2019 [facility] 60 mg 02/01/2019 12:00:00 AM EDT capsule,delayed release (DR/EC) 30 TAKE ONE CAPSULE BY MOUTH EVERY DAY TAKE ONE CAPSULE BY MOUTH EVERY DAY SOLD: 03/13/2019 [facility] 20 mg 12/10/2018 12:00:00 AM EDT tablet 90 TAKE ONE TABLET BY MOUTH EVERY DAY TAKE ONE TABLET BY MOUTH EVERY DAY SOLD: 06/09/2019 [facility] 20 mg 12/10/2018 12:00:00 AM EDT tablet 90 TAKE ONE TABLET BY MOUTH EVERY DAY TAKE ONE TABLET BY MOUTH EVERY DAY SOLD: 03/13/2019 [facility] 10 mg 12/04/2018 12:00:00 AM EDT tablet 90 TAKE 1 TABLET BY MOUTH NEEDED TAKE 1 TABLET BY MOUTH NEEDED SOLD: 03/13/2019 [facility] montelukast 10 MG Oral Tablet MONTELUKAST SODIUM 12/04/2018 12:0 0:00 AM EDT tablet 90 TAKE 1 TABLET BY MOUTH IN THE EV ENING TAKE 1 TABLET BY MOUTH IN THE EVENING SOLD: 03/13/2019 [facility] 2.5 mg /3 mL (0.083 %) 09/25/2018 12:00:00 AM EDT solu tion for nebulization 75 INHALE ONE VIAL VIA NEBULIZER THREE TIME S A DAY NEEDED INHALE ONE VIAL VIA NEBULIZER THREE TIMES A DAY NEEDED SOLD: 07/01/2019 [facility] 90 mcg/actuation 09/25/2018 12:00:00 AM EDT HFA aerosol inha ler 25 INHALE TWO PUFFS BY MOUTH EVERY 4 HOURS NEEDED INHALE TWO PUFFS BY MOUTH EVERY 4 HOURS NEEDED SOLD: 07/01/2019 [facility] 40 mg 03/10/2018 12:00:00 AM EST tablet 30 TAKE ONE TABLET BY MOUTH ONCE A DAY TAKE ONE TABLET BY MOUTH ONCE A DAY SOLD: 03/13/2019 [facility] Insurance Providers Payer name Policy type / Coverage type Policy ID Covered republican ID Covered republican's relationship to crawford Policy [place] Plan Information EMEDNY [id number] SP [id number] HUMANA GOLD [id number] SP [id number] HUMANA MEDICARE ADVANTAGE G [id number] Self [id number] [place] [id number] Self [id number] MEDICAID M [id number] Self [id number] Medicaid P [id number] S [id number] MEDICAID [id number] SP [id number] [facility] [id number] SP [id number] MEDICAID M [id number] S [id number] [facility](MCAID) O [id number]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 is a rather prominent calcaneal spur. IMPRESSION: Status post ORIF fixation of a medial malleolar fracture with cortical plate and screw fixation This document has been electronically signed by Arya Almodovar MD on 02/25/2019 2:38 PM Name Value Range Interpretation Code Description Data Lynette rce(s) Supporting Document(s) ID Date Data Source Comprehensive Metabolic Profile (CMP) 02/22/2019 12:00:00 AM EST eCW1 ([facility]) Name Value Range Interpretation Code Description Data Lynette rce(s) Supporting Document(s) 11 7-18 BLOOD UREA NITROGEN eCW1 ([facility]) 97 70-100 GLUCOSE, FASTING eCW1 ([facility]) 1.09 0.55-1.30 CREATININE FOR GFR eCW1 ([facility]) 142 136-145 SODIUM LEVEL eCW1 ([facility]) 3.6 3.5-5.1 POTASSIUM SERUM eCW1 ([facility]) 57.8 >58 GLOMERULAR FILTRATION RATE eCW 1 ([facility]) 26 21-32 CARBON DIOXIDE LEVEL eCW1 ([facility]) 8.6 8.5-10.1 CALCIUM LEVEL eCW1 ([facility]) 106 98-107 CHLORIDE LEVEL eCW1 ([facility]) 0.4 0.2-1.0 BILIRUBIN,TOTAL eCW1 ([facility]) 6.7 6.4-8.2 TOTAL PROTEIN eCW1 ([facility]) 154 45-117 ALKALINE PHOSPHATASE eCW1 ([facility]) 39 12-78 ALT/SGPT eCW1 ([facility]) 20 7-37 AST/SGOT eCW1 ([facility]) 0.91 1.00-1.93 ALBUMIN/GLOBULIN RATIO eCW1 ([facility]) 3.2 3.2-5.2 ALBUMIN eCW1 ([facility]) Procedure Social History Code Duration Value Status Description Data Source(s ) Smoking 03/29/2020 12:00:00 AM EST Never Smoker completed Never S moker eCW1 ([facility]) Smoking 03/29/2020 12:00:00 AM EST Never Smoker completed Never S moker eCW1 ([facility]) Smoking 03/29/2020 12:00:00 AM EST Never Smoker completed Never S moker eCW1 ([facility]) Smoking 03/29/2020 12:00:00 AM EST Never Smoker completed Never S moker eCW1 ([facility]) Smoking 02/18/2020 12:00:00 AM EST Never Smoker completed Never S moker eCW1 ([facility]) Smoking 02/18/2020 12:00:00 AM EST Never Smoker completed Never S moker eCW1 ([facility]) Smoking 02/18/2020 12:00:00 AM EST Never Smoker completed Never S moker eCW1 ([facility]) Smoking 02/18/2020 12:00:00 AM EST Never Smoker completed Never S moker eCW1 ([facility]) Smoking 02/18/2020 12:00:00 AM EST Never Smoker completed Never S moker eCW1 ([facility]) Smoking 01/19/2020 12:00:00 AM EDT Never Smoker completed Never S moker eCW1 ([facility]) Smoking 01/19/2020 12:00:00 AM EDT Never Smoker completed Never S moker eCW1 ([facility]) Smoking 01/19/2020 12:00:00 AM EDT Never Smoker completed Never S moker eCW1 ([facility]) Smoking 08/25/2019 12:00:00 AM EDT Never Smoker completed Never S moker eCW1 ([facility]) Smoking 08/25/2019 12:00:00 AM EDT Never Smoker completed Never S moker eCW1 ([facility]) Smoking 08/25/2019 12:00:00 AM EDT Never Smoker completed Never S moker eCW1 ([facility]) Smoking 08/25/2019 12:00:00 AM EDT Never Smoker completed Never S moker eCW1 ([facility]) Smoking 08/25/2019 12:00:00 AM EDT Never Smoker completed Never S moker eCW1 ([facility]) Smoking 08/25/2019 12:00:00 AM EDT Never Smoker completed Never S moker eCW1 ([facility]) Alcohol intake 05/04/2019 12:00:00 AM EST Ex-drinker (finding) comp leted Ex- drinker (finding) [facility] Smoking 05/04/2019 12:00:00 AM EST Never smoker completed Never s [facility] Alcohol intake 03/23/2019 12:00:00 AM EST Ex-drinker (finding) comp leted Ex- drinker (finding) [facility] Smoking 03/23/2019 12:00:00 AM EST Never smoker completed Never s [facility] Alcohol intake 03/05/2019 12:00:00 AM EST Ex-drinker (finding) comp leted Ex- drinker (finding) [facility] Smoking 03/05/2019 12:00:00 AM EST Never smoker completed Never s [facility] Vital Signs ID Date Data Source UNK Name Value Range Interpretation Code Description Data Source(s) [place] body weight 125 [lb_av] 125 [lb_av] MEDEN T ([facility], ) Body mass index (BMI) [Ratio] 39.9 kg/m2 39.9 k g/m2 MEDENT ([facility], ) Body weight 240.00 [lb_av] 240.00 [lb_av] MEDEN T ([facility], ) Body height 65 [in_i] 65 [in_i] MEDENT ([facility], ) 5'5" Respiratory rate 14 /min 14 /min MEDENT ( [facility] ) Heart rate 70 /min 70 /min MEDENT ([facility] ) Diastolic blood pressure 80 mm[Hg] 80 mm[Hg] MEDENT ([facility], ) Systolic blood pressure 130 mm[Hg] 130 mm[Hg] M EDENT ([facility], ) Diastolic blood pressure 88 mm[Hg] 88 mm[Hg] eCW1 ([facility]) Systolic blood pressure 134 mm[Hg] 134 mm[Hg] e CW1 ([facility]) Body temperature 96.7 [degF] 96.7 [degF] eCW1 ( [facility]) Respiratory rate 20 /min 20 /min eCW1 ([facility]) Heart rate 100 /min 100 /min eCW1 ([facility]) Body mass index (BMI) [Ratio] 44.81 kg/m2 44.81 kg/m2 eCW1 ([facility]) Body height 62 [in_i] 62 [in_i] eCW1 ([facility]) Body weight 245 [lb_av] 245 [lb_av] eCW1 ([facility]) Body temperature 96.7 [degF] 96.7 [degF] eCW1 ( [facility]) Respiratory rate 18 /min 18 /min eCW1 ([facility]) Heart rate 73 /min 73 /min eCW1 ([facility]) Body mass index (BMI) [Ratio] 44.73 kg/m2 44.73 kg/m2 eCW1 ([facility]) Body height 62 [in_i] 62 [in_i] eCW1 ([facility]) Body weight 244.6 [lb_av] 244.6 [lb_av] eCW1 ([facility]) Diastolic blood pressure 80 mm[Hg] 80 mm[Hg] eCW1 ([facility]) Systolic blood pressure 130 mm[Hg] 130 mm[Hg] e CW1 ([facility]) Body temperature 98.3 [degF] 98.3 [degF] eCW1 ( [facility]) Respiratory rate 18 /min 18 /min eCW1 ([facility]) Heart rate 98 /min 98 /min eCW1 ([facility]) Body mass index (BMI) [Ratio] 44.66 kg/m2 44.66 kg/m2 W1 ([facility]) Body height 62 [in_i] 62 [in_i] eCW1 ([facility]) Body weight 244.2 [lb_av] 244.2 [lb_av] eCW1 ([facility]) Diastolic blood pressure 80 mm[Hg] 80 mm[Hg] eCW1 ([facility]) Systolic blood pressure 142 mm[Hg] 142 mm[Hg] e CW1 ([facility]) Body temperature 97.9 [degF] 97.9 [degF] eCW1 ( [facility]) Respiratory rate 18 /min 18 /min eCW1 ([facility]) Heart rate 104 /min 104 /min eCW1 ([facility]) Body mass index (BMI) [Ratio] 44.44 kg/m2 44.44 kg/m2 eCW1 ([facility]) Body height 62 [in_i] 62 [in_i] eCW1 ([facility]) Body weight 243 [lb_av] 243 [lb_av] eCW1 ([facility]) Diastolic blood pressure 72 mm[Hg] 72 mm[Hg] eCW1 ([facility]) Systolic blood pressure 122 mm[Hg] 122 mm[Hg] e CW1 ([facility]) Body temperature 97.5 [degF] 97.5 [degF] eCW1 ( [facility]) Respiratory rate 18 /min 18 /min eCW1 ([facility]) Heart rate 113 /min 113 /min eCW1 ([facility]) Body mass index (BMI) [Ratio] 45.35 kg/m2 45.35 kg/m2 eCW1 ([facility]) Body height 62 [in_i] 62 [in_i] eCW1 ([facility]) Body weight 248 [lb_av] 248 [lb_av] eCW1 ([facility]) Diastolic blood pressure 68 mm[Hg] 68 mm[Hg] eCW1 ([facility]) Systolic blood pressure 118 mm[Hg] 118 mm[Hg] e CW1 ([facility]) Body temperature 96.4 [degF] 96.4 [degF] eCW1 ( [facility]) Respiratory rate 18 /min 18 /min eCW1 ([facility]) Heart rate 95 /min 95 /min eCW1 ([facility]) Body mass index (BMI) [Ratio] 43.42 kg/m2 43.42 kg/m2 eCW1 ([facility]) Body height 62 [in_us] 62 [in_us] eCW1 ([facility]) Body weight Measured 237.4 [lb_av] 237.4 [lb_av ] eCW1 ([facility]) Diastolic blood pressure 89 mm[Hg] 89 mm[Hg] eCW1 ([facility]) Systolic blood pressure 140 mm[Hg] 140 mm[Hg] e CW1 ([facility]) Body temperature 97.5 [degF] 97.5 [degF] eCW1 ( [facility]) Respiratory rate 18 /min 18 /min eCW1 ([facility]) Heart rate 82 /min 82 /min eCW1 ([facility]) Body mass index (BMI) [Ratio] 43.27 kg/m2 43.27 kg/m2 eCW1 ([facility]) Body height 62 [in_us] 62 [in_us] eCW1 ([facility]) Body weight Measured 236.6 [lb_av] 236.6 [lb_av ] eCW1 ([facility]) Diastolic blood pressure 62 mm[Hg] 62 mm[Hg] eCW1 ([facility]) Systolic blood pressure 131 mm[Hg] 131 mm[Hg] e CW1 ([facility]) Body temperature 97.5 [degF] 97.5 [degF] eCW1 ( [facility]) Respiratory rate 18 /min 18 /min eCW1 ([facility]) Heart rate 110 /min 110 /min eCW1 ([facility]) Body mass index (BMI) [Ratio] 43.89 kg/m2 43.89 kg/m2 W1 ([facility]) Body height 62 [in_us] 62 [in_us] eCW1 ([facility]) Body weight Measured 240.0 [lb_av] 240.0 [lb_av ] eCW1 ([facility]) Diastolic blood pressure 88 mm[Hg] 88 mm[Hg] eCW1 ([facility]) Systolic blood pressure 140 mm[Hg] 140 mm[Hg] e CW1 ([facility]) Body temperature 96.7 [degF] 96.7 [degF] eCW1 ( [facility]) Respiratory rate 18 /min 18 /min eCW1 ([facility]) Heart rate 105 /min 105 /min eCW1 ([facility]) Body mass index (BMI) [Ratio] 43.01 kg/m2 43.01 kg/m2 eCW1 ([facility]) Body height 62 [in_i] 62 [in_i] eCW1 ([facility]) Body weight 235.2 [lb_av] 235.2 [lb_av] eCW1 ([facility]) Diastolic blood pressure 72 mm[Hg] 72 mm[Hg] eCW1 ([facility]) Systolic blood pressure 128 mm[Hg] 128 mm[Hg] e CW1 ([facility]) Body temperature 98.6 [degF] 98.6 [degF] eCW1 ( [facility]) Respiratory rate 18 /min 18 /min eCW1 ([facility]) Heart rate 77 /min 77 /min eCW1 ([facility]) Body mass index (BMI) [Ratio] 42.43 kg/m2 42.43 kg/m2 eCW1 ([facility]) Body height 62 [in_us] 62 [in_us] eCW1 ([facility]) Body weight Measured 232 [lb_av] 232 [lb_av] eC W1 ([facility]) Diastolic blood pressure 87 mm[Hg] 87 mm[Hg] eCW1 ([facility]) Systolic blood pressure 142 mm[Hg] 142 mm[Hg] e CW1 ([facility]) Body temperature 96.5 [degF] 96.5 [degF] eCW1 ( [facility]) Respiratory rate 18 /min 18 /min eCW1 ([facility]) Heart rate 104 /min 104 /min eCW1 ([facility]) Body mass index (BMI) [Ratio] 40.97 kg/m2 40.97 kg/m2 eCW1 ([facility]) Body height 62 [in_us] 62 [in_us] eCW1 ([facility]) Body weight Measured 224 [lb_av] 224 [lb_av] eC W1 ([facility]) Diastolic blood pressure 72 mm[Hg] 72 mm[Hg] eCW1 ([facility]) Systolic blood pressure 124 mm[Hg] 124 mm[Hg] e CW1 ([facility]) Body temperature 97.4 [degF] 97.4 [degF] eCW1 ( [facility]) Respiratory rate 18 /min 18 /min eCW1 ([facility]) Heart rate 102 /min 102 /min eCW1 ([facility]) Body mass index (BMI) [Ratio] 42.83 kg/m2 42.83 kg/m2 eCW1 ([facility]) Body height 62 [in_us] 62 [in_us] eCW1 ([facility]) Body weight Measured 234.2 [lb_av] 234.2 [lb_av ] eCW1 ([facility]) Patient Treatment Plan of Care Planned Activity Planned Date Details Description Data Source (s) Oxycodone Hydrochloride 5 MG Oral Tablet 03/27/2020 12:00:00 AM EST eCW1 ([facility]) Prednisone 20 MG Oral Tablet 03/13/2020 12:00:00 AM EST eCW1 ([facility]) Prednisone 20 MG Oral Tablet 03/13/2020 12:00:00 AM EST eCW1 ([facility]) Oxycodone Hydrochloride 5 MG Oral Tablet 02/28/2020 12:00:00 AM EST eCW1 ([facility]) Oxycodone Hydrochloride 5 MG Oral Tablet 02/28/2020 12:00:00 AM EST eCW1 ([facility]) Oxycodone Hydrochloride 5 MG Oral Tablet 02/28/2020 12:00:00 AM EST eCW1 ([facility]) Oxycodone Hydrochloride 5 MG Oral Tablet 01/27/2020 12:00:00 AM EDT eCW1 ([facility]) Oxycodone Hydrochloride 5 MG Oral Tablet 01/27/2020 12:00:00 AM EDT eCW1 ([facility]) Oxycodone Hydrochloride 5 MG Oral Tablet 01/27/2020 12:00:00 AM EDT eCW1 ([facility]) Verapamil hydrochloride 80 MG Oral Tablet 01/19/2020 12:00:00 AM ED T eCW1 ([facility]) Verapamil hydrochloride 80 MG Oral Tablet 01/19/2020 12:00:00 AM ED T eCW1 ([facility]) Verapamil hydrochloride 80 MG Oral Tablet 01/19/2020 12:00:00 AM ED T eCW1 ([facility]) Oxycodone Hydrochloride 5 MG Oral Tablet 10/20/2019 12:00:00 AM EDT eCW1 ([facility]) Oxycodone Hydrochloride 5 MG Oral Tablet 10/20/2019 12:00:00 AM EDT eCW1 ([facility]) Oxycodone Hydrochloride 5 MG Oral Tablet 09/20/2019 12:00:00 AM EDT eCW1 ([facility]) Oxycodone Hydrochloride 5 MG Oral Tablet 08/19/2019 12:00:00 AM EDT eCW1 ([facility]) Oxycodone Hydrochloride 5 MG Oral Tablet 07/21/2019 12:00:00 AM EDT eCW1 ([facility]) Blood Glucose System Binu - 07/01/2019 12:00:00 AM EDT eCW1 ([facility]) One Touch Ultra Test Strips 1 06/30/2019 12:00:00 AM EDT eCW1 ([facility]) Lancets 1 06/30/2019 12:00:00 AM EDT e CW1 ([facility]) Methocarbamol 750 MG Oral Tablet [Robaxin] 03/26/2019 12:00:[address] eCW1 ([facility]) Methocarbamol 750 MG Oral Tablet [Robaxin] 03/26/2019 12:00:[address] eCW1 ([facility]) Nebulizer Compressor - 03/19/2019 12:00:00 AM EST eCW1 ([facility]) Nebulizers - 03/18/2019 12:00:00 AM EST e CW1 ([facility])
--- OUTSIDE RECORDS SUMMARY | 2020-04-21 13:56 | CCD ---
Author Author [facility] Organization [facility] Address Unknown Phone Unavailable Care Team Providers Care Frozen Yogurt Maker Name Role Phone Terence Krishnamurthy Unavailable Unavailable [...] Unavailable BEENA, SINDI FERRERA Unavailable Unavailable BEENA, ISNDI FERRERA Unavailable Unavailable BEENASINDI MD Unavailable Unavailable [...] Unavailable BEENA, SINDI FERRERA Unavailable Unavailable BEENA, DELONG MD [...] Unavailable Ali, Elinor MD Unavailable Unavailable Ali, Elionr MD Unavailable Unavailable Ali, Elinor MD Unavailable [...] is protected by Article 27-F of the [facility] Public Health law. If you continue you may have access to information: Regarding HIV / AIDS; Provided by facilities licensed or operated by the [facility] Office of Mental Health; or Provided by the [facility] Office for People With Developmental Disabilities. If such information is present, then the following [facility] mandated warning applies: This information has been [...] law may result in a fine or fdc sentence or both. A general authorization for the release of medical or other information is NOT sufficient authorization for further disc losure. Allergies and Adverse Reactions Type Description Substance Reaction Status Data Source(s ) Drug allergy Amitriptyline HCl Amitriptyline Hives Active eC W1 (Formerly [facility]) Drug allergy Percocet acetaminophen / oxycodone Hives Active eCW1 (Formerly [facility]) cats cats cats Eyes water Active eCW1 (Formerly [facility], 1928–1983) cats cats cats Eyes water Active eCW1 (Formerly [facility], 1928[facility]) cats cats cats Eyes water Active eCW1 ([facility]) cats cats cats Eyes water Active eCW1 ([facility] 1928–1983) cats cats cats Eyes water Active eCW1 (Formerly [facility], 1928[facility]) cats cats cats Eyes water Active eCW1 ([facility]ly [facility], [facility]) Family History Family Member Name Family Member Gender Family Member Status Date o f Status Description Data Source(s) Unknown Male Problem MEDENT ([facility]) Unknown Female Problem MEDENT ([facility]) Unknown Unknown Problem MEDENT ([facility] ) Unknown Female Problem MEDENT ([facility]) Encounters Encounter Providers Location Date Indications Data Source(s ) Unknown [address] [facility] [place] [address] 04/19/2020 12:00:00 AM EST eCW1 ([facility]) Unknown [address] [facility] [place] [address] 04/11/2020 12:00:00 AM EST eCW1 ([facility]) Unknown [address] [facility] [place] [address] 04/10/2020 12:00:00 AM EST eCW1 ([facility]) Outpatient Attender: Elinor Leung MD Main office - [place] 04/03/2020 11:00:00 AM EST MEDENT ([facility] ) Outpatient [address] [facility] [place] [address] 03/29/2020 12:00:00 AM EST eCW1 ([facility]) Unknown [address] [facility] [place] [address] 03/27/2020 12:00:00 AM EST eCW1 ([facility]) Unknown [address] [facility] [place] [address] 03/13/2020 12:00:00 AM EST eCW1 ([facility]) Unknown [address] [facility] [place] [address] 03/10/2020 12:00:00 AM EST eCW1 ([facility]) Unknown [address] [facility] [place] [address] 02/28/2020 12:00:00 AM EST eCW1 ([facility]) Outpatient [address] [facility] [place] [address] 02/18/2020 12:00:00 AM EST eCW1 ([facility]) Unknown [address] [facility] [place] [address] 01/27/2020 12:00:00 AM EDT eCW1 ([facility]) Outpatient [address] [facility] [place] [address] 01/19/2020 12:00:00 AM EDT eCW1 ([facility]) [place] [address] [facility] [place] [address] 01/12/2020 12:00:00 AM EDT eCW1 ([facility]) [facility] [address] [facility] [place] [address] 11/25/2019 12:00:00 AM EDT eCW1 ([facility]) Unknown [address] [facility] [place] [address] 10/20/2019 12:00:00 AM EDT eCW1 ([facility]) [place] [address] [facility] [place] [address] 09/20/2019 12:00:00 AM EDT eCW1 ([facility]) Outpatient Attender: [email or web address] [facility] 09/14/2019 07:36:45 PM EDT [facility] [place] [address] [facility] [place] [address] 09/14/2019 12:00:00 AM EDT eCW1 ([facility]) Unknown [address] [facility] [place] [address] 09/10/2019 12:00:00 AM EDT eCW1 ([facility]) Outpatient Attender: [email or web address] [facility] 09/04/2019 12:10:55 AM EDT [facility] [address] [facility] [place] [address] 09/02/2019 12:00:00 AM EDT eCW1 ([facility]) [facility] [address] [facility] [place] [address] 08/26/2019 12:00:00 AM EDT eCW1 ([facility]) [place]patient [address] [facility] [place] [address] 08/25/2019 12:00:00 AM EDT eCW1 ([facility]) [facility] [address] [facility] [place] [address] 08/18/2019 12:00:00 AM EDT eCW1 ([facility]) [facility] [address] [facility] [place] [address] 08/17/2019 12:00:00 AM EDT eCW1 ([facility]) [facility] [address] [facility] [place] [address] 07/28/2019 12:00:00 AM EDT eCW1 ([facility]) [facility] [address] [facility] [place] [address] 07/20/2019 12:00:00 AM EDT eCW1 ([facility]) [facility] [place] [address] [facility] [place] [address] 07/01/2019 12:00:00 AM EDT eCW1 ([facility]) [facility] [address] [facility] [place] [address] 06/29/2019 12:00:00 AM EDT eCW1 ([facility]) [facility] [address] [facility] [place] [address] 06/29/2019 12:00:00 AM EDT eCW1 ([facility]) [facility] [address] [place] [address] 06/28/2019 12:00:00 AM EDT eCW1 [facility] Outpatient 06/02/2019 05:33:00 AM EST [facility] [place] [address] [facility] [place] [address] 05/27/2019 12:00:00 AM EST eCW1 ([facility]) [facility] [place] [address] [facility] [place] [address] 05/25/2019 12:00:00 AM EST eCW1 ([facility]) Outpatient 05/20/2019 12:44:00 PM EST [facility] [address] [facility] [place] [address] 05/13/2019 12:00:00 AM EST eCW1 ([facility]) Outpatient Attender: SINDI HARGROVE MD [email or web address] 05/05/2019 12:00:00 AM EST [facility] Outpatient Attender: Karthik JONES [id number] 05/04/2019 12 :00:00 AM EST Other fracture of right lower leg, subsequent encounter for closed fracture with routine healing [facility] Other fracture of right lower leg, subse quent encounter for closed fracture with routine healing Outpatient Referrer: Karthik JONES 05/04/2019 12 :00:00 AM EST Other fracture of right lower leg, subsequent encounter for closed fracture with routine healing [facility] Other fracture of right lower leg, subse quent encounter for closed fracture with routine healing Outpatient Attender: [email or web address] [facility] 04/30/2019 02:19:00 PM EST [facility] [address] [place] [phone] 04/30/2019 12:00:00 AM EST eCW1 ([facility]) [facility] [address] [place] [phone] 04/28/2019 12:00:00 AM EST eCW1 ([facility]) [address] [address] 04/15/2019 12:00:00 AM EST eCW1 ([facility]) [facility] [address] [place] [phone] 04/15/2019 12:00:00 AM EST eCW1 ([facility]) [facility] [address] [place] [phone] 04/14/2019 12:00:00 AM EST eCW1 ([facility]) [address] [address] 04/02/2019 12:00:00 AM EST eCW1 ([facility]) [facility] [address] [place] [phone] 03/29/2019 12:00:00 AM EST eCW1 ([facility]) [facility] [address] [place] [phone] 03/29/2019 12:00:00 AM EST eCW1 ([facility]) Outpatient 03/28/2019 07:10:00 PM EST [facility] Outpatient [address] [facility] [place] [address] 03/26/2019 12:00:00 AM EST eCW1 ([facility]) [facility] [address] [place] [phone] 03/26/2019 12:00:00 AM EST eCW1 ([facility]) Outpatient Attender: NEO ROONEY MD [id number] 03/23/2019 12:00:0 0 AM EST Other fracture of right lower leg, subsequent encounter for closed fracture with routine healing [facility] Other fracture of right lower leg, subse quent encounter for closed fracture with routine healing Outpatient Referrer: NEO ROONEY MD 03/23/2019 12:00:0 0 AM EST Other fracture of right lower leg, subsequent encounter for closed fracture with routine healing [facility] Other fracture of right lower leg, subse quent encounter for closed fracture with routine healing [facility] [address] [place] [address], [place] [address] 03/19/2019 12:00:00 AM EST eCW1 ([facility]) [facility] [address] [place] [address], [place] [address] 03/18/2019 12:00:00 AM EST eCW1 ([facility]) [facility] [address] [place] [address], [place] [address] 03/18/2019 12:00:00 AM EST eCW1 ([facility]) [facility] [address] [place] [phone] 03/12/2019 12:00:00 AM EST eCW1 ([facility]) [facility] [address] [place] [address], [place] [address] 03/03/2019 12:00:00 AM EST [facility] Outpatient Attender: NEO ROONEY MD [id number] 02/23/2019 12:00:0 0 AM EST Other fracture of right lower leg, subsequent encounter for closed fracture with routine healing [facility] Other fracture of right lower leg, subse quent encounter for closed fracture with routine healing Outpatient Referrer: NEO ROONEY MD 02/23/2019 12:00:0 0 AM EST Other fracture of right lower leg, subsequent encounter for closed fracture with routine healing [facility] Other fracture of right lower leg, subse quent encounter for closed fracture with routine healing [address] [address] 02/22/2019 12:00:00 AM EST eCW1 ([facility]) Medications Medication Brand Name Start Date Product Form Dose Route Admi nistrative Instructions Pharmacy Instructions Status Indications Reaction Description Data Source(s) Sumatriptan 100 MG Oral Tablet Sumatriptan Succinate 04/03/2020 12:00:00 AM EST ORAL active MEDENT ( [facility]) Alprazolam 0.5 MG Oral Tablet Alprazolam 04/03/2020 12:00:00 AM EST ORAL active MEDENT ([facility]) topiramate 50 MG Oral Tablet Topiramate 04/03/2020 12:00:00 AM EST active MEDENT ([facility] ) 25 mg 03/30/2020 12:00:00 AM EST tablet 60 TAKE ONE TABLET BY MOUTH TWICE A DAY WITH FOOD TAKE ONE TABLET BY MOUTH TWICE A DAY WITH FOOD SOLD: 04/01/2020 [facility] Metoprolol Tartrate 25 MG Oral Tablet Metoprolol Tartrate 25 MG 03/29/2020 12:00:00 AM EST 1.0 {tablet_with_food} active Metoprolol Tartrate 25 MG eCW1 ([facility]ly [facility]) Metoprolol Tartrate 25 MG Oral Tablet Metoprolol Tartrate 25 MG 03/29/2020 12:00:00 AM EST 1.0 {tablet_with_food} active Metoprolol Tartrate 25 MG eCW1 (Formerly [facility]) Metoprolol Tartrate 25 MG Oral Tablet Metoprolol Tartrate 25 MG 03/29/2020 12:00:00 AM EST 1.0 {tablet_with_food} active Metoprolol Tartrate 25 MG eCW1 (Formerly [facility]) Metoprolol Tartrate 25 MG Oral Tablet Metoprolol Tartrate 25 MG 03/29/2020 12:00:00 AM EST 1.0 {tablet_with_food} active Metoprolol Tartrate 25 MG eCW1 (Formerly [facility]) Oxycodone Hydrochloride 5 MG Oral Tablet Oxycodone HCl 5 MG Oxycodone HCl 5 MG 03/27/2020 12:00:00 AM EST active Oxycodone HCl 5 MG eCW1 (Formerly [facility]) 5 mg 03/27/2020 12:00:00 AM EST [...] EST active Oxycodone HCl 5 MG eCW1 ([facility]) Oxycodone Hydrochloride 5 MG Oral Tablet Oxycodone HCl 5 MG Oxycodone HCl 5 MG 03/27/2020 12:00:00 AM EST active Oxycodone HCl 5 MG eCW1 ([facility]ly [facility]) Oxycodone Hydrochloride 5 MG Oral Tablet Oxycodone HCl 5 MG Oxycodone HCl 5 MG 03/27/2020 12:00:00 AM EST active Oxycodone HCl 5 MG eCW1 ([facility]) Oxycodone Hydrochloride 5 MG Oral Tablet Oxycodone HCl 5 MG Oxycodone HCl 5 MG 03/27/2020 12:00:00 AM EST active Oxycodone HCl 5 MG eCW1 ([facility]) Prednisone 20 MG Oral Tablet PredniSONE 20 MG PredniSONE 20 MG 03/13/2020 12:00:00 AM EST 2.0 {tablets} active P redniSONE 20 MG eCW1 ([facility]) 20 mg 03/13/2020 12:00:00 AM EST tablet 4 TAKE TWO TABLETS BY MOUTH EVERY DAY TAKE TWO TABLETS BY MOUTH EVERY DAY SOLD: 03/17/2020 [facility] Prednisone 20 MG Oral Tablet PredniSONE 20 MG PredniSONE 20 MG 03/13/2020 12:00:00 AM EST 2.0 {tablets} suspended PredniSONE 20 MG eCW1 ([facility]) Prednisone 20 MG Oral Tablet PredniSONE 20 MG PredniSONE 20 MG 03/13/2020 12:00:00 AM EST 2.0 {tablets} suspended PredniSONE 20 MG eCW1 ([facility]) Prednisone 20 MG Oral Tablet PredniSONE 20 MG PredniSONE 20 MG 03/13/2020 12:00:00 AM EST 2.0 {tablets} suspended PredniSONE 20 MG eCW1 ([facility]) Prednisone 20 MG Oral Tablet PredniSONE 20 MG PredniSONE 20 MG 03/13/2020 12:00:00 AM EST 2.0 {tablets} suspended PredniSONE 20 MG eCW1 ([facility]) Prednisone 20 MG Oral Tablet PredniSONE 20 MG PredniSONE 20 MG 03/13/2020 12:00:00 AM EST 2.0 {tablets} active P redniSONE 20 MG eCW1 ([facility]) atorvastatin 40 MG Oral Tablet ATORVASTATIN [...] EST active Oxycodone HCl 5 MG eCW1 ([facility]) Oxycodone Hydrochloride 5 MG Oral Tablet Oxycodone HCl 5 MG Oxycodone HCl 5 MG 02/28/2020 12:00:00 AM EST active Oxycodone HCl 5 MG eCW1 ([facility]) Oxycodone Hydrochloride 5 MG Oral Tablet Oxycodone HCl 5 MG Oxycodone HCl 5 MG 02/28/2020 12:00:00 AM EST active Oxycodone HCl 5 MG eCW1 ([facility]) 5 mg 02/28/2020 12:00:00 AM EST [...] EDT active Oxycodone HCl 5 MG eCW1 ([facility]) Oxycodone Hydrochloride 5 MG Oral Tablet Oxycodone HCl 5 MG Oxycodone HCl 5 MG 01/27/2020 12:00:00 AM EDT active Oxycodone HCl 5 MG eCW1 ([facility]) Oxycodone Hydrochloride 5 MG Oral Tablet Oxycodone HCl 5 MG Oxycodone HCl 5 MG 01/27/2020 12:00:00 AM EDT active Oxycodone HCl 5 MG eCW1 ([facility]) Oxycodone Hydrochloride 5 MG Oral Tablet Oxycodone HCl 5 MG Oxycodone HCl 5 MG 01/27/2020 12:00:00 AM EDT active Oxycodone HCl 5 MG eCW1 ([facility]) 80 mg 01/20/2020 12:00:00 AM EDT [...] activ e Verapamil HCl 80 MG eCW1 ([facility]) Verapamil hydrochloride 80 MG Oral Tablet Verapamil HC l 80 MG Verapamil HCl 80 MG 01/19/2020 12:00:00 AM EDT 1.0 {tablet} activ e Verapamil HCl 80 MG eCW1 ([facility]) Verapamil hydrochloride 80 MG Oral Tablet Verapamil HC l 80 MG Verapamil HCl 80 MG 01/19/2020 12:00:00 AM EDT 1.0 {tablet} activ e Verapamil HCl 80 MG eCW1 ([facility]) Verapamil hydrochloride 80 MG Oral Tablet Verapamil HC l 80 MG Verapamil HCl 80 MG 01/19/2020 12:00:00 AM EDT 1.0 {tablet} activ e Verapamil HCl 80 MG eCW1 ([facility]) Verapamil hydrochloride 80 MG Oral Tablet Verapamil HC l 80 MG Verapamil HCl 80 MG 01/19/2020 12:00:00 AM EDT 1.0 {tablet} activ e Verapamil HCl 80 MG eCW1 ([facility]) Verapamil hydrochloride 80 MG Oral Tablet Verapamil HC l 80 MG Verapamil HCl 80 MG 01/19/2020 12:00:00 AM EDT 1.0 {tablet} activ e Verapamil HCl 80 MG eCW1 ([facility]) Verapamil hydrochloride 80 MG Oral Tablet Verapamil HC l 80 MG Verapamil HCl 80 MG 01/19/2020 12:00:00 AM EDT 1.0 {tablet} activ e Verapamil HCl 80 MG eCW1 ([facility]) Verapamil hydrochloride 80 MG Oral Tablet Verapamil HC l 80 MG Verapamil HCl 80 MG 01/19/2020 12:00:00 AM EDT 1.0 {tablet} activ e Verapamil HCl 80 MG eCW1 ([facility]) 2 % 01/13/2020 12:00:00 AM EDT [...] A DAY FOR 7 DAYS SOLD: 12/17/2019 [facility] 500 mg 12/16/2019 12:00:00 AM EDT [...] DAILY DOSE = 2 TABLETS SOLD: 11/22/2019 [facility] Oxycodone Hydrochloride 5 MG Oral Tablet Oxycodone HCl 5 MG Oxycodone HCl 5 MG 10/20/2019 12:00:00 AM EDT active Oxycodone HCl 5 MG eCW1 ([facility]) 5 mg 10/20/2019 12:00:00 AM EDT [...] EDT active Oxycodone HCl 5 MG eCW1 ([facility]) Oxycodone Hydrochloride 5 MG Oral Tablet Oxycodone HCl 5 MG Oxycodone HCl 5 MG 09/20/2019 12:00:00 AM EDT active Oxycodone HCl 5 MG eCW1 ([facility]) 5 mg 09/20/2019 12:00:00 AM EDT [...] EDT active Oxycodone HCl 5 MG eCW1 ([facility]) Oxycodone Hydrochloride 5 MG Oral Tablet Oxycodone HCl 5 MG Oxycodone HCl 5 MG 08/19/2019 12:00:00 AM EDT active Oxycodone HCl 5 MG eCW1 ([facility]) 5 mg 08/19/2019 12:00:00 AM EDT [...] EDT active Oxycodone HCl 5 MG eCW1 ([facility]) Oxycodone Hydrochloride 5 MG Oral Tablet Oxycodone HCl 5 MG Oxycodone HCl 5 MG 08/19/2019 12:00:00 AM EDT active 1 tablet as needed MDD 2 eCW1 ([facility]) Oxycodone Hydrochloride 5 MG Oral Tablet Oxycodone HCl 5 MG Oxycodone HCl 5 MG 07/21/2019 12:00:00 AM EDT active 1 tablet as needed MDD 2 eCW1 ([facility]) 5 mg 07/21/2019 12:00:00 AM EDT tablet 30 TAKE ONE TABLET BY MOUTH EVERY 6 HOURS NEEDED, MAXIMUM DAILY DOSE = 2 TABLETS TAKE ONE TABLET BY MOUTH EVERY 6 HOURS NEEDED, MAXIMUM DAILY DOSE = 2 TABLETS SOLD: 07/22/2019 [facility] BLOOD-GLUCOSE METER 07/02/2019 12:00:00 AM EDT misc 1 TEST DAILY TEST DAILY SOLD: 07/03/2019 [facility] LANCETS 07/02/2019 12:00:00 AM EDT misc 50 USE A S DIRECTED USE DIRECTED SOLD: 07/03/2019 [facility] BLOOD SUGAR DIAGNOSTIC 07/02/2019 12:00:00 AM EDT strip 50 USE DIRECTED ONCE DAILY USE DIRECTED ONCE DAILY SOLD: 07/03/2019 [facility] Blood Glucose System Binu - Blood Glucose System - 2019 12:00:00 AM EDT active Blood Glucose Sys tem Binu - eCW1 ([facility]) Blood Glucose System [facility] - Blood Glucose System 2019 12:00:00 AM EDT active Blood Glucose Sys tem Binu - eCW1 ([facility]) Blood Glucose System [facility] - Blood Glucose System 2019 12:00:00 AM EDT active Blood Glucose Sys tem Binu - eCW1 ([facility]) Blood Glucose System [facility] - Blood Glucose System 2019 12:00:00 AM EDT active Blood Glucose Sys tem Binu - eCW1 ([facility]) Blood Glucose System [facility]u - Blood Glucose System 2019 12:00:00 AM EDT active Blood Glucose Sys tem Binu - eCW1 ([facility]) Blood Glucose System [facility]u - Blood Glucose System 2019 12:00:00 AM EDT active Blood Glucose Sys tem Binu - eCW1 ([facility]) Blood Glucose System Binu - Blood Glucose System 2019 12:00:00 AM EDT active meter eCW1 ([facility]) Blood Glucose System Binu - Blood Glucose System 2019 12:00:00 AM EDT active Blood Glucose Sys tem Binu - eCW1 ([facility]) Blood Glucose System Binu - Blood Glucose System 2019 12:00:00 AM EDT active Blood Glucose Sys tem Binu - eCW1 ([facility]) Blood Glucose System [facility]u - Blood Glucose System 2019 12:00:00 AM EDT active Blood Glucose Sys tem Binu - eCW1 ([facility]) Blood Glucose System [facility]u - Blood Glucose System 2019 12:00:00 AM EDT active Blood Glucose Sys tem Binu - eCW1 ([facility]) Blood Glucose System Binu - Blood Glucose System 2019 12:00:00 AM EDT active Blood Glucose Sys tem Binu - eCW1 ([facility]) Blood Glucose System Binu - Blood Glucose System 2019 12:00:00 AM EDT active Blood Glucose Sys tem Binu - eCW1 ([facility]) Blood Glucose System Binu - Blood Glucose System 2019 12:00:00 AM EDT active Blood Glucose Sys tem Binu - eCW1 ([facility]) Blood Glucose System Binu - Blood Glucose System 2019 12:00:00 AM EDT active Blood Glucose Sys tem Binu - eCW1 ([facility]) Blood Glucose System Binu - Blood Glucose System 2019 12:00:00 AM EDT active Blood Glucose Sys tem Binu - eCW1 ([facility]) Blood Glucose System Binu - Blood Glucose System 2019 12:00:00 AM EDT active Blood Glucose Sys tem Binu - eCW1 ([facility]) Blood Glucose System Binu - Blood Glucose System 2019 12:00:00 AM EDT active Blood Glucose Sys tem Binu - eCW1 ([facility]) Blood Glucose System Binu - Blood Glucose System 2019 12:00:00 AM EDT active Blood Glucose Sys tem Binu - eCW1 ([facility]) One Touch Ultra Test Strips 1 UNK 06/30/2019 12:00:00 AM EDT active One Touch Ultra Test Strips 1 eCW1 ([facility]) Lancets 1 UNK 06/30/2019 12:00:00 AM EDT active Lancets 1 eCW1 ([facility]) Lancets Misc 1 UNK 06/30/2019 12:00:00 AM EDT active Lancets Misc 1 eCW1 ([facility]) Lancets 1 UNK 06/30/2019 12:00:00 AM EDT active Lancets 1 eCW1 ([facility]) One Touch Ultra Test Strips 1 UNK 06/30/2019 12:00:00 AM EDT active One Touch Ultra Test Strips 1 eCW1 ([facility]) One Touch Ultra Test Strips 1 UNK 06/30/2019 12:00:00 AM EDT active One Touch Ultra Test Strips 1 eCW1 ([facility]) One Touch Ultra Test Strips 1 UNK 06/30/2019 12:00:00 AM EDT active One Touch Ultra Test Strips 1 eCW1 ([facility]) Lancets 1 UNK 06/30/2019 12:00:00 AM EDT active Lancets 1 eCW1 ([facility]) One Touch Ultra Test Strips 1 UNK 06/30/2019 12:00:00 AM EDT active One Touch Ultra Test Strips 1 eCW1 ([facility]) Lancets 1 UNK 06/30/2019 12:00:00 AM EDT active Lancets 1 eCW1 ([facility]) One Touch Ultra Test Strips 1 UNK 06/30/2019 12:00:00 AM EDT active One Touch Ultra Test Strips 1 eCW1 ([facility]) Lancets 1 UNK 06/30/2019 12:00:00 AM EDT active Lancets 1 eCW1 ([facility]) One Touch Ultra Test Strips 1 UNK 06/30/2019 12:00:00 AM EDT active One Touch Ultra Test Strips 1 eCW1 ([facility]) One Touch Ultra Test Strips 1 UNK 06/30/2019 12:00:00 AM EDT active as directed eCW1 ([facility]) Lancets 1 UNK 06/30/2019 12:00:00 AM EDT active Lancets 1 eCW1 (Formerly [facility]) One Touch Ultra Test Strips 1 UNK 06/30/2019 12:00:00 AM EDT active One Touch Ultra Test Strips 1 eCW1 ([facility]) One Touch Ultra Test Strips 1 UNK 06/30/2019 12:00:00 AM EDT active One Touch Ultra Test Strips 1 eCW1 ([facility]) One Touch Ultra Test Strips 1 UNK 06/30/2019 12:00:00 AM EDT active One Touch Ultra Test Strips 1 eCW1 ([facility]) Lancets Misc 1 UNK 06/30/2019 12:00:00 AM EDT active Lancets Misc 1 eCW1 (Formerly [facility]) One Touch Ultra Test Strips 1 UNK 06/30/2019 12:00:00 AM EDT active One Touch Ultra Test Strips 1 eCW1 ([facility]) One Touch Ultra Test Strips 1 UNK 06/30/2019 12:00:00 AM EDT active One Touch Ultra Test Strips 1 eCW1 ([facility]) Lancets 1 UNK 06/30/2019 12:00:00 AM EDT active Lancets 1 eCW1 ([facility]ly [facility]) One Touch Ultra Test Strips 1 UNK 06/30/2019 12:00:00 AM EDT active One Touch Ultra Test Strips 1 eCW1 ([facility]) Lancets 1 UNK 06/30/2019 12:00:00 AM EDT active Lancets 1 eCW1 ([facility]) Lancets 1 UNK 06/30/2019 12:00:00 AM EDT active Lancets 1 eCW1 ([facility]) One Touch Ultra Test Strips 1 UNK 06/30/2019 12:00:00 AM EDT active One Touch Ultra Test Strips 1 eCW1 ([facility]) Lancets 1 UNK 06/30/2019 12:00:00 AM EDT active Lancets 1 eCW1 ([facility]) One Touch Ultra Test Strips 1 UNK 06/30/2019 12:00:00 AM EDT active One Touch Ultra Test Strips 1 eCW1 ([facility]) Lancets 1 UNK 06/30/2019 12:00:00 AM EDT active Lancets 1 eCW1 ([facility]) Lancets 1 UNK 06/30/2019 12:00:00 AM EDT active Lancets 1 eCW1 ([facility]) Lancets 1 UNK 06/30/2019 12:00:00 AM EDT active as directed eCW1 ([facility]) Lancets 1 K 06/30/2019 12:00:00 AM EDT active Lancets 1 eCW1 ([facility]) One Touch Ultra Test Strips 1 K 06/30/2019 12:00:00 AM EDT active One Touch Ultra Test Strips 1 eCW1 ([facility]) Lancets 1 K 06/30/2019 12:00:00 AM EDT active Lancets 1 eCW1 ([facility]ly [facility]) Lancets 1 [facility] 06/30/2019 12:00:00 AM EDT active Lancets 1 eCW1 ([facility]ly [facility]) One Touch Ultra Test Strips 1 [facility] 06/30/2019 12:00:00 AM EDT active One Touch Ultra Test Strips 1 eCW1 ([facility]) Lancets 1 [facility] 06/30/2019 12:00:00 AM EDT active Lancets 1 eCW1 ([facility]) One Touch Ultra Test Strips 1 [facility] 06/30/2019 12:00:00 AM EDT active One Touch Ultra Test Strips 1 eCW1 ([facility]) montelukast 10 MG Oral Tablet MONTELUKAST SODIUM [...] 1.0 {tablet} active Robaxin-750 750 MG eCW1 ([facility]) Methocarbamol 750 MG Oral Tablet [Robaxin] Robaxin-750 750 MG Robaxin-750 750 MG 03/26/2019 12:00:00 AM EST active 1 tablet eCW1 ([facility]) Methocarbamol 750 MG Oral Tablet [Robaxin] Robaxin-750 750 MG Robaxin-750 750 MG 03/26/2019 12:00:00 AM EST 1.0 {tablet} active Robaxin-750 750 MG eCW1 ([facility]) Methocarbamol 750 MG Oral Tablet [Robaxin] Robaxin-750 750 MG Robaxin-750 750 MG 03/26/2019 12:00:00 AM EST 1.0 {tablet} active Robaxin-750 750 MG eCW1 ([facility]) Methocarbamol 750 MG Oral Tablet [Robaxin] Robaxin-750 750 MG Robaxin-750 750 MG 03/26/2019 12:00:00 AM EST 1.0 {tablet} active Robaxin-750 750 MG eCW1 ([facility]) Methocarbamol 750 MG Oral Tablet [Robaxin] Robaxin-750 750 MG Robaxin-750 750 MG 03/26/2019 12:00:00 AM EST 1.0 {tablet} active Robaxin-750 750 MG eCW1 ([facility]) Methocarbamol 750 MG Oral Tablet [Robaxin] Robaxin-750 750 MG Robaxin-750 750 MG 03/26/2019 12:00:00 AM EST 1.0 {tablet} active Robaxin-750 750 MG eCW1 ([facility]) Methocarbamol 750 MG Oral Tablet [Robaxin] Robaxin-750 750 MG Robaxin-750 750 MG 03/26/2019 12:00:00 AM EST 1.0 {tablet} active Robaxin-750 750 MG eCW1 ([facility]) Methocarbamol 750 MG Oral Tablet [Robaxin] Robaxin-750 750 MG Robaxin-750 750 MG 03/26/2019 12:00:00 AM EST 1.0 {tablet} active Robaxin-750 750 MG eCW1 ([facility]) Methocarbamol 750 MG Oral Tablet [Robaxin] Robaxin-750 750 MG Robaxin-750 750 MG 03/26/2019 12:00:00 AM EST 1.0 {tablet} active Robaxin-750 750 MG eCW1 ([facility]) Methocarbamol 750 MG Oral Tablet [Robaxin] Robaxin-750 750 MG Robaxin-750 750 MG 03/26/2019 12:00:00 AM EST 1.0 {tablet} active Robaxin-750 750 MG eCW1 ([facility]) Methocarbamol 750 MG Oral Tablet [Robaxin] Robaxin-750 750 MG Robaxin-750 750 MG 03/26/2019 12:00:00 AM EST 1.0 {tablet} active Robaxin-750 750 MG eCW1 ([facility]) Methocarbamol 750 MG Oral Tablet [Robaxin] Robaxin-750 750 MG Robaxin-750 750 MG 03/26/2019 12:00:00 AM EST 1.0 {tablet} active Robaxin-750 750 MG eCW1 ([facility]) Methocarbamol 750 MG Oral Tablet [Robaxin]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 WeA6UnzjY8DFIqRCHyNs7EWTRvDUJinSXmTiPrZCURNeWiG1MpeU09SZKLCz7+DQplbmRvYmoNCjIzID Wku9PfXLp6KZ3IERRmKCz6jSPbIXCzL9Tun7DaJs13TJNpFmtpVIR8bSqeyiPUAJFwpDBtETHIJOTdkX JkOc6vGj2pMUR9YHEzIeObSZHORU6AKVYdWKKlaJWr VSKqVZHJCL4FMBsjBIK6UOEyfuBqxVWdBLpqXT3BBTOnizCsUoLcPGJVHBq+In0BMF3uo3YsSHcxUXGn BT5ekt5KKQoFMcWyR7K2pVHsB9B7DMzjKd3UCUMvOLSzErAuCTCAOIdnUL2MQZ5tdgZ4KS7RvGAzWTSy HCPrvPMtOUx7G91gyZLjSMumPB2BNNA+Olivia+Pg0KIC YcMUIkBAWgFoElADGUVnVcA6SwO0KCr8WgV5DyBS53nWuignSvVKovNN9QTZ0tEUOnYJINCT0VsOEjtB 1tadJqXmDqZFCWTaSwC33dnUGwQISnNDVyOHNvMl2MTLFjK1NhxkNemQuphkYwCDWsUEHBNF9VJZogpq DuaJNjpGvnGL53kUddEA1JLd0IQxXsTH4yfd2PsLCc Ix4QJNCmCI0UVOEkXKRnCFEqHRT9BJPvXwYlTXpsCPLsUFHrBJO7QTYeYWLsLB6LNsYgUWLkEXb8LTno EVRmEZOker3PMQApNAXkRIP1XxKdQTSzMGEkRYdnGECkLTFmKPH2PCHgDVHpJT7HTfJuIXPkIFEsMyFl XEIxYRZrqh1PQCZtQUJhKnDpYPBoGPBtBWLlPXsuHZ XeYFS7IJn8PIUaZXJmAI6TItTcCXSdJOA0TVFoRPVjFLVuas5RDCGqSRJaBWv5MWNiWNLuBKCtSHlxEA SlIUM3XLIpXMFlNSMeGP0VSjDoKHUfWIIcQzSlYEUxNKYsxv8PKHJbNDPqWtZwVPHdUFHqMXJrVTafLS LeLTE0LFA3NXBaNVIbVB1JCqDfKVPtNGc3QOUiZBEm VVGbyp7CBGRfROEwQYM0JDXeWIPwVDEuVKgiFCIsRLW9FwOuLLAfRIFdUW7XFfZsNCHxQTa9RhkjDJYa ALUffg8TVIPoZAEySMMrWRTzRMZqAJGrSWhtGAMjBQH9YjBpSPOxIZArWK0LQtIdSORuFRd6BLLmFRAi KTBjrs5HOZJqXBSaPPRqOmNsMYGmOARhHVygGNUdSZ LoSgUmIHCyEURxMW9DIxStYKWkIlP8GsMzBOInDJEdcf8CFZEvNCIaSRm5CdFqLCByQFIxYJr3zuAlhD FiLRq7LS6TJ4XoccGgYwLLRm1Hq332HSG9MRNfMk5LR2kqUz9hQZUaHWHUCm3OBLg7ZBDqMWR5Kgl6VX c3AZH0WSAcHJF0RjdqMFSsWtFbTFO+IDxhZmEwYzlm YRl4LWWlLIW3GPMiOzYeGBW0UvI1PAA8KL4yDMROWz2+LXaopTDefZkfNXCSPfRzCZW4WSenQZYAIr5J ID Date Data Source [id number] 03/05/2019 02:15:33 PM EST [facility] Name Value Range Interpretation Code Description Data Lynette rce(s) Supporting Document(s) Progress Note [facility] MKJWAn7kMuIWKxTm43/IMFinJPIae9CjBVblXIq3YFzcODVzT5NpKPT2oN6vHSR2ITcYRqJcBLzyALS0 lbm [file] ed6J/vt/[employer]EDER+p3twZez/e9iW7m3oRRxUyJBZqvVboemzGizXx3C2VLep63/PAbejWLCR3+81npu4mtk02 b55qcriVNxgJ87LTjAuyArTvUrS8u9mEZHazSG14N88VCmszCgujlGx8bSAkBt1IPC+YC+TwZrQRkVyA 7sWaDS/tir3WEs6k5ZHOsNxmKVirZvVqmq2XrTkBNX ndDcCKfKpC0nytkWALDQTAqoLc7REZJAgP2cz7ibr9JZnjuhitHl9NvIi2c28ooOSKgrcBs8vYkLykHK dzlEnQ6BzIoI9uqX0T8fEJKp+QPJkCwIJ9htYtEg5pXN8TpQoiqZefcNUvlrs7LCAiNOOGbqUijJV+vK PS3uzs50mx4RTDnlwWesH7hveQ6qJfreQp7oBdeA5h 0DUntYzKaPyZd7PXCChZld3TgiG4BxOIMQcdvmdAKwqV7nut65QFZmxV8OrgF0koTnMX5M5SayR5y3LC ZUH95cVdRWWtAVK4pIGNLqFRsKwe4TALCZJqDZcENwWXAodufllwk5G222e0RuTH/OJpbuRGy3kCUG3K 3SUSpr7jXaJ81vk1NJvOL9AmGbp4KctN5K5JYnCVBL yST2G2H83EBG5ToMl5s5BTaR9e30NE5Uv7h6nSNWF73LkQYQrzZQNSF23GQnGPnLC0aQlUykOGv/Zboa oSxKfgWCYhBY7kfymqglN7MQxXqcTdEWqGtuuDIVOLRsZCGYMAQBVdG+iFkHCHmieWC8MQbmyyCMQDd7 keXyAy1bRNJOtkwYs3ebDiZ3cfDFOmenSGyPbOVWbk AuMUgdJS3sCIy06yNt1XNacyYTZIN+Alan/bJvR7YJKAirKjLZmg6ULWdvmJ5nIjasMT7ZGeEQc3ev6k/ [file] Víctor+qNyQb6yyS5GSlNeCizKTvEwczwcNrx2WNsJnIb3u0mT46Rs1qBA3lqjt2u5us1qOzwt+YnW7R1G [file] GtK2KroNKpHgGL9EEOf= ID Date Data Source [id number] 02/25/2019 02:40:35 PM EST [facility] XR ANKLE 3 OR MORE VIEWS [id number] RESU LTInterpreted by:Arya Almodovar MDEXAM: Right ankle [...] Profile (CMP) 02/22/2019 12:00:00 AM EST eCW1 (Formerly [facility]) Name Value Range Interpretation Code Description Data Lynette rce(s) Supporting Document(s) 11 7-18 BLOOD UREA NITROGEN eCW1 ([facility]) 97 70-100 GLUCOSE, FASTING eCW1 (Formerly [facility], 1928–1983) 1.09 0.55-1.30 CREATININE FOR GFR eCW1 (On license of [facility]) 142 136-145 SODIUM LEVEL eCW1 ([facility]) 3.6 3.5-5.1 POTASSIUM SERUM eCW1 ([facility]) 57.8 >58 GLOMERULAR FILTRATION RATE eCW 1 (Formerly [facility]) 26 21-32 CARBON DIOXIDE LEVEL eCW1 ([facility]) 8.6 8.5-10.1 CALCIUM LEVEL eCW1 (Formerly [facility]) 106 98-107 CHLORIDE LEVEL eCW1 (Formerly [facility]) 0.4 0.2-1.0 BILIRUBIN,TOTAL eCW1 ([facility]) 6.7 6.4-8.2 TOTAL PROTEIN eCW1 (Formerly [facility]) 154 45-117 ALKALINE PHOSPHATASE eCW1 ([facility]) 39 12-78 ALT/SGPT eCW1 ([facility]) 20 7-37 AST/SGOT eCW1 ([facility]) 0.91 1.00-1.93 ALBUMIN/GLOBULIN RATIO eCW1 ([facility]) 3.2 3.2-5.2 ALBUMIN eCW1 ([facility]) Procedure Social History Code Duration Value Status Description Data Source(s ) Smoking 03/29/2020 12:00:00 AM EST Never Smoker completed Never S moker eCW1 (Formerly [facility]) Smoking 03/29/2020 12:00:00 AM EST Never Smoker completed Never S moker eCW1 (Formerly [facility]) Smoking 03/29/2020 12:00:00 AM EST Never Smoker completed Never S moker eCW1 ([facility]ly [facility]) Smoking 03/29/2020 12:00:00 AM EST Never Smoker completed Never S moker eCW1 ([facility]ly [facility]) Smoking 02/18/2020 12:00:00 AM EST Never Smoker completed Never S moker eCW1 ([facility]ly [facility]) Smoking 02/18/2020 12:00:00 AM EST Never Smoker completed Never S moker eCW1 ([facility]ly [facility]) Smoking 02/18/2020 12:00:00 AM EST Never Smoker completed Never S moker eCW1 ([facility]ly [facility]) Smoking 02/18/2020 12:00:00 AM EST Never Smoker completed Never S moker eCW1 (Formerly [facility]) Smoking 02/18/2020 12:00:00 AM EST Never Smoker completed Never S moker eCW1 (Formerly [facility]) Smoking 01/19/2020 12:00:00 AM EDT Never Smoker completed Never S moker eCW1 ([facility]ly [facility]) Smoking 01/19/2020 12:00:00 AM EDT Never Smoker completed Never S moker eCW1 (Formerly [facility]) Smoking 01/19/2020 12:00:00 AM EDT Never Smoker completed Never S moker eCW1 ([facility]ly [facility]) Smoking 08/25/2019 12:00:00 AM EDT Never Smoker completed Never S moker eCW1 (Formerly [facility]) Smoking 08/25/2019 12:00:00 AM EDT Never Smoker completed Never S moker eCW1 (Formerly [facility]) Smoking 08/25/2019 12:00:00 AM EDT Never Smoker completed Never S moker eCW1 (Formerly [facility]) Smoking 08/25/2019 12:00:00 AM EDT Never Smoker completed Never S moker eCW1 (Formerly [facility]) Smoking 08/25/2019 12:00:00 AM EDT Never Smoker completed Never S moker eCW1 (Formerly [facility]) Smoking 08/25/2019 12:00:00 AM EDT Never Smoker completed Never S moker eCW1 (Formerly [facility]) Alcohol intake 05/04/2019 12:00:00 AM EST Ex-drinker (finding) comp leted Ex- drinker (finding) [facility] Smoking 05/04/2019 12:00:00 AM EST Never smoker completed Never s [facility] Alcohol intake 03/23/2019 12:00:00 AM EST Ex-drinker (finding) comp leted Ex- drinker (finding) [facility] Smoking 03/23/2019 12:00:00 AM EST Never smoker completed Never s [facility] Alcohol intake 03/05/2019 12:00:00 AM EST Ex-drinker (finding) comp leted Ex- drinker (finding) [facility] Smoking 03/05/2019 12:00:00 AM EST Never smoker completed Never s [facility] Vital Signs ID Date Data Source UNK Name Value Range Interpretation Code Description Data Source(s) [place] body weight 125 [lb_av] 125 [lb_av] MEDEN T ([facility], ) Body mass index (BMI) [Ratio] 39.9 kg/m2 39.9 k g/m2 MEDENT ([facility], ) Body weight 240.00 [lb_av] 240.00 [lb_av] MEDEN T ([facility], ) Body height 65 [in_i] 65 [in_i] MEDENT ([facility], ) 5'5" Respiratory rate 14 /min 14 /min MEDENT ( [facility] ) Heart rate 70 /min 70 /min MEDENT ([facility] ) Diastolic blood pressure 80 mm[Hg] 80 mm[Hg] MEDENT ([facility] ) Systolic blood pressure 130 mm[Hg] 130 mm[Hg] M EDENT ([facility], ) Diastolic blood pressure 88 mm[Hg] 88 mm[Hg] eCW1 (Formerly [facility]) Systolic blood pressure 134 mm[Hg] 134 mm[Hg] e CW1 (Formerly [facility]) Body temperature 96.7 [degF] 96.7 [degF] eCW1 ( Formerly [facility]) Respiratory rate 20 /min 20 /min eCW1 ([facility]) Heart rate 100 /min 100 /min eCW1 ([facility]) Body mass index (BMI) [Ratio] 44.81 kg/m2 44.81 kg/m2 eCW1 (Formerly [facility]) Body height 62 [in_i] 62 [in_i] eCW1 (Formerly [facility], 1928[facility]1983) Body weight 245 [lb_av] 245 [lb_av] eCW1 (On license of [facility]) Body temperature 96.7 [degF] 96.7 [degF] eCW1 ( Formerly [facility]) Respiratory rate 18 /min 18 /min eCW1 ([facility]) Heart rate 73 /min 73 /min eCW1 ([facility]) Body mass index (BMI) [Ratio] 44.73 kg/m2 44.73 kg/m2 eCW1 (Formerly [facility]) Body height 62 [in_i] 62 [in_i] eCW1 (Formerly [facility], 1928[facility]1983) Body weight 244.6 [lb_av] 244.6 [lb_av] eCW1 ([facility]) Diastolic blood pressure 80 mm[Hg] 80 mm[Hg] eCW1 ([facility]ly [facility]) Systolic blood pressure 130 mm[Hg] 130 mm[Hg] e CW1 ([facility]ly [facility]) Body temperature 98.3 [degF] 98.3 [degF] eCW1 ( [facility]) Respiratory rate 18 /min 18 /min eCW1 ([facility]) Heart rate 98 /min 98 /min eCW1 ([facility]) Body mass index (BMI) [Ratio] 44.66 kg/m2 44.66 kg/m2 W1 (Formerly [facility]) Body height 62 [in_i] 62 [in_i] eCW1 (Formerly [facility], [facility]) Body weight 244.2 [lb_av] 244.2 [lb_av] eCW1 ([facility]) Diastolic blood pressure 80 mm[Hg] 80 mm[Hg] eCW1 ([facility]ly [facility]) Systolic blood pressure 142 mm[Hg] 142 mm[Hg] e CW1 ([facility]) Body temperature 97.9 [degF] 97.9 [degF] eCW1 ( [facility]) Respiratory rate 18 /min 18 /min eCW1 ([facility]) Heart rate 104 /min 104 /min eCW1 ([facility]) Body mass index (BMI) [Ratio] 44.44 kg/m2 44.44 kg/m2 eCW1 ([facility]ly [facility]) Body height 62 [in_i] 62 [in_i] eCW1 (Formerly [facility], [facility]) Body weight 243 [lb_av] 243 [lb_av] eCW1 (On license of [facility]) Diastolic blood pressure 72 mm[Hg] 72 mm[Hg] eCW1 (Formerly [facility]) Systolic blood pressure 122 mm[Hg] 122 mm[Hg] e CW1 ([facility]ly [facility]) Body temperature 97.5 [degF] 97.5 [degF] eCW1 ( Former[facility]) Respiratory rate 18 /min 18 /min eCW1 ([facility]) Heart rate 113 /min 113 /min eCW1 ([facility]) Body mass index (BMI) [Ratio] 45.35 kg/m2 45.35 kg/m2 eCW1 (Formerly [facility]) Body height 62 [in_i] 62 [in_i] eCW1 (Formerly [facility], 1928–1983) Body weight 248 [lb_av] 248 [lb_av] eCW1 (On license of [facility]) Diastolic blood pressure 68 mm[Hg] 68 mm[Hg] eCW1 (Formerly [facility]) Systolic blood pressure 118 mm[Hg] 118 mm[Hg] e CW1 (Formerly [facility]) Body temperature 96.4 [degF] 96.4 [degF] eCW1 ( Formerly [facility]) Respiratory rate 18 /min 18 /min eCW1 ([facility]) Heart rate 95 /min 95 /min eCW1 ([facility]) Body mass index (BMI) [Ratio] 43.42 kg/m2 43.42 kg/m2 eCW1 (Formerly [facility]) Body height 62 [in_us] 62 [in_us] eCW1 (Formerly [facility], 1928–1983) Body weight Measured 237.4 [lb_av] 237.4 [lb_av ] eCW1 (Formerly [facility]) Diastolic blood pressure 89 mm[Hg] 89 mm[Hg] eCW1 (Formerly [facility]) Systolic blood pressure 140 mm[Hg] 140 mm[Hg] e CW1 (Formerly [facility]) Body temperature 97.5 [degF] 97.5 [degF] eCW1 ( Formerly [facility]) Respiratory rate 18 /min 18 /min eCW1 ([facility]) Heart rate 82 /min 82 /min eCW1 ([facility]) Body mass index (BMI) [Ratio] 43.27 kg/m2 43.27 kg/m2 eCW1 (Formerly [facility]) Body height 62 [in_us] 62 [in_us] eCW1 (Formerly [facility], 1928–1983) Body weight Measured 236.6 [lb_av] 236.6 [lb_av ] eCW1 (Formerly [facility]) Diastolic blood pressure 62 mm[Hg] 62 mm[Hg] eCW1 (Formerly [facility]) Systolic blood pressure 131 mm[Hg] 131 mm[Hg] e CW1 (Formerly [facility]) Body temperature 97.5 [degF] 97.5 [degF] eCW1 ( Formerly [facility]) Respiratory rate 18 /min 18 /min eCW1 ([facility]) Heart rate 110 /min 110 /min eCW1 ([facility]) Body mass index (BMI) [Ratio] 43.89 kg/m2 43.89 kg/m2 W1 (Formerly [facility]) Body height 62 [in_us] 62 [in_us] eCW1 (Formerly [facility], 1928–1983) Body weight Measured 240.0 [lb_av] 240.0 [lb_av ] eCW1 (Formerly [facility]) Diastolic blood pressure 88 mm[Hg] 88 mm[Hg] eCW1 (Formerly [facility]) Systolic blood pressure 140 mm[Hg] 140 mm[Hg] e CW1 (Formerly [facility]) Body temperature 96.7 [degF] 96.7 [degF] eCW1 ( Formerly [facility]) Respiratory rate 18 /min 18 /min eCW1 ([facility]) Heart rate 105 /min 105 /min eCW1 ([facility]) Body mass index (BMI) [Ratio] 43.01 kg/m2 43.01 kg/m2 eCW1 (Formerly [facility]) Body height 62 [in_i] 62 [in_i] eCW1 (Formerly [facility], 1928–1983) Body weight 235.2 [lb_av] 235.2 [lb_av] eCW1 ([facility]) Diastolic blood pressure 72 mm[Hg] 72 mm[Hg] eCW1 (Formerly [facility]) Systolic blood pressure 128 mm[Hg] 128 mm[Hg] e CW1 (Formerly [facility]) Body temperature 98.6 [degF] 98.6 [degF] eCW1 ( Formerly [facility]) Respiratory rate 18 /min 18 /min eCW1 ([facility]) Heart rate 77 /min 77 /min eCW1 ([facility]) Body mass index (BMI) [Ratio] 42.43 kg/m2 42.43 kg/m2 eCW1 (Formerly [facility]) Body height 62 [in_us] 62 [in_us] eCW1 (Formerly [facility], 1928–1983) Body weight Measured 232 [lb_av] 232 [lb_av] eC W1 (Formerly [facility]) Diastolic blood pressure 87 mm[Hg] 87 mm[Hg] eCW1 (Formerly [facility]) Systolic blood pressure 142 mm[Hg] 142 mm[Hg] e CW1 (Formerly [facility]) Body temperature 96.5 [degF] 96.5 [degF] eCW1 ( Formerly [facility]) Respiratory rate 18 /min 18 /min eCW1 ([facility]) Heart rate 104 /min 104 /min eCW1 ([facility]) Body mass index (BMI) [Ratio] 40.97 kg/m2 40.97 kg/m2 eCW1 (Formerly [facility]) Body height 62 [in_us] 62 [in_us] eCW1 (Formerly [facility], 1928–1983) Body weight Measured 224 [lb_av] 224 [lb_av] eC W1 (Formerly [facility]) Diastolic blood pressure 72 mm[Hg] 72 mm[Hg] eCW1 (Formerly [facility]) Systolic blood pressure 124 mm[Hg] 124 mm[Hg] e CW1 (Formerly [facility]) Body temperature 97.4 [degF] 97.4 [degF] eCW1 ( Formerly [facility]) Respiratory rate 18 /min 18 /min eCW1 ([facility]) Heart rate 102 /min 102 /min eCW1 ([facility]) Body mass index (BMI) [Ratio] 42.83 kg/m2 42.83 kg/m2 eCW1 (Formerly [facility]) Body height 62 [in_us] 62 [in_us] eCW1 (Formerly [facility], 1928–1983) Body weight Measured 234.2 [lb_av] 234.2 [lb_av ] eCW1 (Formerly [facility]) Patient Treatment Plan of Care Planned Activity Planned Date Details Description Data Source (s) Oxycodone Hydrochloride 5 MG Oral Tablet 03/27/2020 12:00:00 AM EST eCW1 (Formerly [facility]) Prednisone 20 MG Oral Tablet 03/13/2020 12:00:00 AM EST eCW1 (Formerly [facility]) Prednisone 20 MG Oral Tablet 03/13/2020 12:00:00 AM EST eCW1 (Formerly [facility]) Oxycodone Hydrochloride 5 MG Oral Tablet 02/28/2020 12:00:00 AM EST eCW1 (Formerly [facility]) Oxycodone Hydrochloride 5 MG Oral Tablet 02/28/2020 12:00:00 AM EST eCW1 (Formerly [facility]) Oxycodone Hydrochloride 5 MG Oral Tablet 02/28/2020 12:00:00 AM EST eCW1 (Formerly [facility]) Oxycodone Hydrochloride 5 MG Oral Tablet 01/27/2020 12:00:00 AM EDT eCW1 (Formerly [facility]) Oxycodone Hydrochloride 5 MG Oral Tablet 01/27/2020 12:00:00 AM EDT eCW1 (Formerly [facility]) Oxycodone Hydrochloride 5 MG Oral Tablet 01/27/2020 12:00:00 AM EDT eCW1 (Formerly [facility]) Verapamil hydrochloride 80 MG Oral Tablet 01/19/2020 12:00:00 AM ED T eCW1 (Formerly [facility]) Verapamil hydrochloride 80 MG Oral Tablet 01/19/2020 12:00:00 AM ED T eCW1 (Formerly [facility]) Verapamil hydrochloride 80 MG Oral Tablet 01/19/2020 12:00:00 AM ED T eCW1 (Formerly [facility]) Oxycodone Hydrochloride 5 MG Oral Tablet 10/20/2019 12:00:00 AM EDT eCW1 (Formerly [facility]) Oxycodone Hydrochloride 5 MG Oral Tablet 10/20/2019 12:00:00 AM EDT eCW1 (Formerly [facility]) Oxycodone Hydrochloride 5 MG Oral Tablet 09/20/2019 12:00:00 AM EDT eCW1 (Formerly [facility]) Oxycodone Hydrochloride 5 MG Oral Tablet 08/19/2019 12:00:00 AM EDT eCW1 (Formerly [facility]) Oxycodone Hydrochloride 5 MG Oral Tablet 07/21/2019 12:00:00 AM EDT eCW1 (Formerly [facility]) Blood Glucose System Binu - 07/01/2019 12:00:00 AM EDT eCW1 (Formerly [facility]) One Touch Ultra Test Strips 1 06/30/2019 12:00:00 AM EDT eCW1 (Formerly [facility]) Lancets 1 06/30/2019 12:00:00 AM EDT e CW1 (Formerly [facility]) Methocarbamol 750 MG Oral Tablet [Robaxin] 03/26/2019 12:00:[address] eCW1 (Formerly [facility]) Methocarbamol 750 MG Oral Tablet [Robaxin] 03/26/2019 12:00:[address] eCW1 (Formerly [facility]) Nebulizer Compressor - 03/19/2019 12:00:00 AM EST eCW1 (Formerly [facility]) Nebulizers - 03/18/2019 12:00:00 AM EST e CW1 (Formerly [facility])
--- NOTE | 2020-04-21 18:13 | ECGEPIP ---
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
== END 2020-04-21 14:00 | disposition home or self-care (01) ==
LOC: M ED 12:34
DX: Z11.52 Encounter for screening for COVID-19 (principal); R51.9 Headache, unspecified; R43.9 Unspecified disturbances of smell and taste; M79.10 Myalgia, unspecified site; R05 Cough; E11.9 Type 2 diabetes mellitus without complications; I10 Essential (primary) hypertension; J45.909 Unspecified asthma, uncomplicated; G43.909 Migraine, unspecified, not intractable, without status migrainosus; K58.9 Irritable bowel syndrome, unspecified; Z79.899 Other long term (current) drug therapy; Z88.8 Allergy status to other drugs, medicaments and biological substances
CPT/HCPCS: 93005; 99284; U0003

== ENCOUNTER → 2020-04-26 | Outpatient (CLI) | payer OTHER, MEDICAID ==
[~2020-04-26] MED LIST changes: -LISI-542 PO; +LISI-898 PO; +METH-1165 PO; +METO1TAB87 PO; +QUET50TA3; -QUET5TAB; +SUMA100T2 PO; +TOPI200T7; +TOPI50TA9 PO; +VERAP80TA PO
--- NOTE | 2020-04-27 09:16 | REP ---
INDICATION: COUGH COMPARISON: 12/25/2018 TECHNIQUE: PA and lateral. FINDINGS: The mediastinum and cardiac silhouette are normal. The lung wagner are clear and without acute consolidation, effusion, or pneumothorax. The skeletal structures are intact and normal. IMPRESSION: No acute cardiopulmonary process. <Electronically signed by Hiram Leal > 04/27/20 0913
== END ==
LOC: M ADAMS 16:19
PROVIDERS: ATTEND Family Medicine
DX: R05 Cough (principal)
CPT/HCPCS: 71046; 87804; G0463

== ENCOUNTER → 2020-04-28 | Outpatient (REF) | payer OTHER, MEDICAID ==
[~2020-04-28] MED LIST changes: -TOPI200T7
[2020-04-28 12:39] LABS: BASO % 0.6 % (0.0-1.0); EOS # 0.2 10^3/uL (0.0-0.5); EOS % 2.7 % (0.0-3.0); HEMATOCRIT 44.1 % (36.0-47.0); HEMOGLOBIN 14.6 g/dl (12.0-15.5); LYMPH # 1.9 10^3/uL (1.5-5.0); MEAN CORPUSCULAR HEMOGLOBIN 28.2 pg (27.0-33.0); MEAN CORPUSCULAR HGB CONC 33.1 g/dl (32.0-36.5); MEAN CORPUSCULAR VOLUME 85.1 fl (80.0-96.0); MONO # 0.7 10^3/uL (0.0-0.8); MONO % 10.5 % (0.0-5.0); NEUTROPHILS # 3.6 10^3/uL (1.5-8.5); PLATELET COUNT, AUTOMATED 291 10^3/uL (150-450); RED BLOOD COUNT 5.18 10^6/uL (4.00-5.40); WHITE BLOOD COUNT 6.4 10^3/uL (4.0-10.0)
[2020-04-28 13:28] LABS: ALBUMIN 3.5 GM/DL (3.2-5.2); ALT/SGPT 64 U/L (12-78); BILIRUBIN,TOTAL 0.5 MG/DL (0.2-1.0); BLOOD UREA NITROGEN 22 MG/DL (7-18); CALCIUM LEVEL 9.5 MG/DL (8.5-10.1); CARBON DIOXIDE LEVEL 21 MEQ/L (21-32); CHLORIDE LEVEL 114 MEQ/L (98-107); CREATININE FOR GFR 0.86 MG/DL (0.55-1.30); GLOMERULAR FILTRATION RATE > 60.0 (>58); GLUCOSE, FASTING 110 MG/DL (70-100); POTASSIUM SERUM 4.3 MEQ/L (3.5-5.1); SODIUM LEVEL 144 MEQ/L (136-145)
== END ==
LOC: M SFHCADAM 08:38
PROVIDERS: ATTEND Family Medicine
DX: R09.89 Other specified symptoms and signs involving the circulatory and respiratory systems (principal); R05 Cough; R19.7 Diarrhea, unspecified

== ENCOUNTER 2020-05-11 11:44 | Emergency (ER) | payer OTHER, MEDICAID ==
[~2020-05-11] VITALS: Ht 157.5 cm; Wt 105.9 kg
[~2020-05-11 11:44] MED LIST changes: -METH-1165 PO; -METO1TAB87 PO; -SUMA100T2 PO; -TOPI50TA9 PO; -VERAP80TA PO
[2020-05-11 12:15] LABS: BASO % 0.6 % (0.0-1.0); EOS # 0.2 10^3/uL (0.0-0.5); EOS % 3.2 % (0.0-3.0); HEMATOCRIT 43.1 % (36.0-47.0); HEMOGLOBIN 13.9 g/dl (12.0-15.5); LYMPH # 1.8 10^3/uL (1.5-5.0); LYMPH % 33.8 % (24.0-44.0); MEAN CORPUSCULAR HEMOGLOBIN 27.5 pg (27.0-33.0); MEAN CORPUSCULAR HGB CONC 32.3 g/dl (32.0-36.5); MEAN CORPUSCULAR VOLUME 85.3 fl (80.0-96.0); MONO # 0.6 10^3/uL (0.0-0.8); MONO % 11.2 % (0.0-5.0); NEUTROPHILS # 2.7 10^3/uL (1.5-8.5); PLATELET COUNT, AUTOMATED 282 10^3/uL (150-450); RED BLOOD COUNT 5.05 10^6/uL (4.00-5.40); WHITE BLOOD COUNT 5.3 10^3/uL (4.0-10.0)
[2020-05-11] MEDS ORDERED: NS 1,000 ML IV ONE (12:15)
[2020-05-11] MEDS ORDERED: MORPHINE 4 MG/ML 1ML VIAL/SYRINGE (J2270) IV ONE (12:15)
[2020-05-11] MEDS ORDERED: METO1TAB87 PO (12:41)
[2020-05-11 12:48] LABS: ALBUMIN 3.6 GM/DL (3.2-5.2); ALT/SGPT 73 U/L (12-78); BILIRUBIN,DIRECT 0.1 MG/DL (0.0-0.2); BILIRUBIN,TOTAL 0.5 MG/DL (0.2-1.0); BLOOD UREA NITROGEN 17 MG/DL (7-18); CALCIUM LEVEL 9.6 MG/DL (8.5-10.1); CARBON DIOXIDE LEVEL 26 MEQ/L (21-32); CHLORIDE LEVEL 109 MEQ/L (98-107); CREATININE FOR GFR 0.72 MG/DL (0.55-1.30); GLOMERULAR FILTRATION RATE > 60.0 (>58); GLUCOSE, FASTING 110 MG/DL (70-100); LIPASE 82 U/L (73-393); POTASSIUM SERUM 3.8 MEQ/L (3.5-5.1); SODIUM LEVEL 143 MEQ/L (136-145); TOTAL PROTEIN 6.9 GM/DL (6.4-8.2)
[2020-05-11] MEDS: GASTROGRAFIN SOLUTION 30ML PO SCH ×2 (13:08→13:38)
[2020-05-11] MEDS ORDERED: METH-1165 PO (13:27)
[2020-05-11] MEDS ORDERED: TOPI50TA9 PO (13:27)
[2020-05-11] MEDS ORDERED: VERAP80TA PO (13:27)
[2020-05-11] MEDS ORDERED: SUMA100T2 PO (13:27)
[2020-05-11] MEDS ORDERED: ISOVUE-370 76% 100ML VIAL As Ordered ONE (14:01)
--- NOTE | 2020-05-11 14:39 | REP ---
INDICATION: RLQ pain. COMPARISON: Comparison CT study abdomen and pelvis September 22, 2018.. TECHNIQUE: 100 mL of intravenous Isovue 370 is administered and helical scanning is acquired. 3 mm axial images re-formatted. Coronal and sagittal MPR images are provided. FINDINGS: Preliminary digital beauty consultant radiograph is unremarkable. On axial CT images, there is mild subsegmental platelike atelectasis bilaterally. This is more prominent on the left than the right. No evidence of pleural effusion seen. There is mild to moderate diffuse fatty infiltration of the liver. No focal hepatic or splenic lesion is seen. There are clips in right upper quadrant post cholecystectomy. No abnormality is noted in the pancreas. Normal adrenal glands are seen bilaterally. The kidneys are morphologically intact and enhance symmetrically. No retroperitoneal mass or adenopathy is seen. Small and large bowel loops are normal in the upper abdomen. There is a tiny epigastric anterior abdominal wall defect trans Boucher a small amount of omental fat. Defect measures 1 cm in right to left dimension. A normal appendix is seen in the right lower quadrant. There is mild left colonic diverticulosis without CT evidence of diverticulitis. The uterus is surgically absent. No adnexal mass or cyst is seen. No pelvic adenopathy is observed. Urinary bladder is unremarkable. Bone window settings show no bony destructive lesion. There is a fairly large central Schmorl's node at the L1 vertebral body unchanged from the 2019 prior study. IMPRESSION: Fatty infiltration of the liver. Post cholecystectomy and hysterectomy. Normal appendix. Left colonic diverticulosis without CT evidence of diverticulitis. No acute abnormality. Small epigastric ventral hernia trans Boucher a small quantity of fat. Unchanged. <Electronically signed by Perez Waddell > 05/11/20 3518
[2020-05-11 14:59] VITALS: BP 161/93
== END 2020-05-11 15:03 | disposition home or self-care (01) ==
LOC: M ED 11:44 → EDBD 11:44 → M ED 15:03
DX: R10.9 Unspecified abdominal pain (principal); I10 Essential (primary) hypertension; K21.9 Gastro-esophageal reflux disease without esophagitis; E78.5 Hyperlipidemia, unspecified; J45.909 Unspecified asthma, uncomplicated; G47.33 Obstructive sleep apnea (adult) (pediatric); F32.9 Major depressive disorder, single episode, unspecified; E66.9 Obesity, unspecified; K76.0 Fatty (change of) liver, not elsewhere classified; K57.30 Diverticulosis of large intestine without perforation or abscess without bleeding; K43.9 Ventral hernia without obstruction or gangrene; Z79.899 Other long term (current) drug therapy; Z88.8 Allergy status to other drugs, medicaments and biological substances
CPT/HCPCS: 74177; 80048; 80076; 81001; 83690; 85025; 87086; 96361; 96374; 99284; G0463; J2270; Q9963; Q9967

== ENCOUNTER → 2020-05-18 | Outpatient (CLI) | payer OTHER, MEDICAID ==
[~2020-05-18] MED LIST changes: +METH-1165 PO; +METO1TAB87 PO; +SUMA100T2 PO; +TOPI50TA9 PO; +VERAP80TA PO
[2020-05-18 15:25] LABS: ALBUMIN 3.7 GM/DL (3.2-5.2); ALT/SGPT 78 U/L (12-78); BILIRUBIN,TOTAL 0.4 MG/DL (0.2-1.0); BLOOD UREA NITROGEN 17 MG/DL (7-18); CALCIUM LEVEL 9.6 MG/DL (8.5-10.1); CARBON DIOXIDE LEVEL 30 MEQ/L (21-32); CHLORIDE LEVEL 107 MEQ/L (98-107); CHOLESTEROL LEVEL 176 MG/DL (<200); CREATININE FOR GFR 0.74 MG/DL (0.55-1.30); GLOMERULAR FILTRATION RATE > 60.0 (>58); GLUCOSE, FASTING 91 MG/DL (70-100); HDL CHOLESTEROL 51 MG/DL (>40); LDL CHOLESTEROL 96 MG/DL (<100); NON-HDL-C 125 MG/DL; POTASSIUM SERUM 4.9 MEQ/L (3.5-5.1); SODIUM LEVEL 143 MEQ/L (136-145); TRIGLYCERIDES LEVEL 147 MG/DL (<150)
[2020-05-18 15:48] LABS: HEMOGLOBIN A1c 5.8 %
[2020-05-18 16:01] LABS: AMPHETAMINES URINE REFLEX NEGATIVE (NEGATIVE); BARBITURATES URINE REFLEX NEGATIVE (NEGATIVE); BENZODIAZEPINES URINE REFLEX NEGATIVE (NEGATIVE); CANNABINOIDS URINE REFLEX NEGATIVE (NEGATIVE); COCAINE METABOLITE URINE REFLE NEGATIVE (NEGATIVE); METHADONE URINE REFLEX NEGATIVE (NEGATIVE); PHENCYCLIDINE URINE REFLEX NEGATIVE (NEGATIVE)
[2020-05-18 16:05] LABS: OPIATES URINE REFLEX PENDING CONFIRMATION (NEGATIVE)
== END ==
LOC: M LAB 14:07
PROVIDERS: ATTEND Physician Assistant Medical
DX: E11.9 Type 2 diabetes mellitus without complications (principal); M19.071 Primary osteoarthritis, right ankle and foot
CPT/HCPCS: 36415; 80053; 80061; 80307; 83036; G0480

== ENCOUNTER 2020-05-31 15:47 | Emergency (ER) | payer OTHER, MEDICAID ==
[~2020-05-31] VITALS: Ht 165.1 cm; Wt 106.9 kg
[~2020-05-31 15:47] MED LIST changes: +ASPI-569 PO; -ASPI81TAEC PO; +VERA80TA3 PO; -VERAP80TA PO
--- OUTSIDE RECORDS SUMMARY | 2020-05-31 15:56 | CCD ---
Author Author [facility] Organization [facility] Address Unknown Phone Unavailable Care Team Providers Care Pulverizing And Sifting Operator Name Role Phone Pat Archer Unavailable PROBLEMS Type Condition ICD9-CM Code [id number] Code Onset Dates Condition S tatus W/U Status Risk SNOMED Code Notes Problem Other hyperlipidemia E78.4 Active confirmed 83286611 Problem Obstructive sleep apnea (adult) (pediatric) G47.33 Active confirmed 09834208 Problem Surgical menopause, symptomatic E89.41 Active confi rmed 015816818 Problem Asthma, extrinsic, unspecified asthma severity, uncomp licated J45.909 Active confirmed 671848625 Problem Duodenal ulcer disease K26.9 Active confirmed 08305307 Problem Severe episode of recurrent major depressive disorder, without psychotic features F33.2 Active confirmed 58235426 Problem Irritable bowel syndrome with both constipation and diarrh ea K58.2 Active confirmed 70225594 Problem Morbid (severe) obesity due to excess calories E66 .01 Active confirmed 79388935539646 Problem Low back pain M54.5 Active confirmed 456103 009 Problem Cervicalgia M54.2 Active confirmed 44843836 83606 Problem Primary osteoarthritis of right knee M17.11 Act waqas confirmed 185267971970092 Problem Migraine without status migr ainosus, not intractable, unspecified migraine type G43.909 Active confirmed 86859966 Problem Irritable bowel syndrome with diarrhea K58.0 A ctive confirmed 114559007 Problem Gastro-esophageal reflux disease without esophagitis K21.9 Active confirmed 886928784 Problem New daily persistent headache G44.52 Active co nfirmed 153185574182105 Problem Other chronic pain G89.29 Active confirmed 8 0249108 Problem Type 2 diabetes mellitus without complications E11 .9 Active confirmed 426227541 Problem Essential (primary) hypertension I10 Active conf irmed 53247243 Problem Myalgia, other site M79.18 Active confirmed 05399043 Problem Facet arthropathy, 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 Active confirme d 501061641 Problem Facet arthropathy, cervical M47.812 Active confirme d 649230937 Problem Pain in thoracic spine M54.6 Active confirmed 762678345 ALLERGIES Allergen (clinical drug ingredient) Drug/Non Drug Allergy do cumented on EMR Reaction Allergy Type Onset Date Status amitriptyline Amitriptyline HCl[place] [place] Code:[address]-75) Hives Dr ug Allergy Active cats Eyes water Non Drug Allergy Active acetaminophen / oxycodone Percocet[place] [place] Code:[address]-26) Hives Drug Allergy Active ENCOUNTERS from 1975 to 2020-05-13 Encounter Location Date Provider Diagnosis [address] [address] May, Pat Archer IMMUNIZATIONS Vaccine Route Administration Date Status TDAP [...] Notes Start Da te End Date Status Metoprolol Tartrate 25 MG 1 tablet with food Orally Twice a day for 30 day(s) Mar, Active Protonix 40 MG 1 tablet Orally twice daily for 90 Active Duloxetine HCl 60 MG 1 capsule Orally Once a day for 30 days Sep, Active Gabapentin 300 MG 1 capsule Orally three times a day for 30 days Nov, Active Oxycodone HCl 5 MG 1 tablet as needed MDD 2 Orally every 6 hrs f or 30 Days Apr, Active Blood Glucose System Binu - meter Dx: E11.9 Daily for 30 Days Jun, Active Zyrtec Allergy 10 mg 1 tablet as needed Orally Once a day for 90 Active IBU-200 200 MG 2 tabs with food or milk as needed Orally Three time s a day Not-Taking Doxycycline Hyclate 100 MG 1 capsule Orally bid for 7 day(s) Apr, Not-Taking Acetaminophen 500 MG 2 caps as needed Orally every 6 hrs Active Sumatriptan Succinate 100 MG 1 tablet at least 2 hours between doses as needed Orally Twice a day Active Robaxin-750 750 MG 1 tablet Orally Q8H PRN Mar, Active PredniSONE 20 MG 2 tablets Orally Once a day for 2 days Mar, Not-Taking Nebulizer Compressor - as directed _Dx:J45.909 _ for 30 Days Mar, Active ProAir HFA 108 (90 Base) MCG/ACT inhale two puffs by m outh every 4 hours as needed for 30 days Active One Touch Ultra Test Strips 1 as directed intradermall y daily dx: E11.9 for 50 days Jun, Active Atorvastatin Calcium 40 MG 1 tablet Orally Once a day for 90 Active Albuterol Sulfate (2.5 MG/3ML) 0.083% 3 ml Inhalation DX:J45.909 Three times a day as needed for 30 days Active Furosemide 20 MG 1 tablet Orally Once a day for 90 day(s) Oct, Active Singulair 10 mg 1 tablet in the evening Orally Once a day for 90 Active Topiramate 50 MG 2 tablet Orally Once a day Active Nebulizers - as directed _Dx J45.909 _ for 30 Days Mar, Active Lancets 1 as directed intradermally daily dx:E11.9 for 50 days Jun, Active Verapamil HCl 80 MG 1 tablet Orally Three times a day for 30 day(s) Active PROCEDURES No Information RESULTS No Results REASON FOR VISIT ER Visit 05/11; abd pain MEDICAL (GENERAL) HISTORY Type Description Date Medical [...] History perimenopause Medical History Chest pain - 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
--- OUTSIDE RECORDS SUMMARY | 2020-05-31 15:56 | CCD | Continuity of Care Document ---
Author Renea Woodward M.D. Organization Unknown Address [address] [place] [address] Phone [phone] Care Team Providers Care Technical Clerk Name Role Phone Pat Alonzo DO AUTM Problems Active Problems Provider Date Chronic intractable [...] mri scan. may repeat once if needed. 2estrella Leung M.D. 04/03/2020 Sumatriptan Succinate 100mg Tablet [...] lb BMI (Body Mass Index) 39.9 kg/m2 [place] Body Weight 125 lb Results Description No Information Available Procedures Date Code Description Status 05/09/2020 21637 MRI Spine Cervical W/O Contrast Completed 05/09/2020 04071 MRI Spine Cervical W/O Contrast Completed 05/09/2020 91982 MRI Brain W/O Contrast Completed 05/09/2020 53109 MRI Brain W/O Contrast Completed Medical Devices Description No Information Available Encounters Type Date Location Provider Dx Diagnosis Office Visit 04/03/2020 12:00p Main office - [place] Odette Ordonez G43.719 Chronic migraine w/o aura, intractable, w/o stat migr G44.221 Chronic tension-type headach e, intractable M54.2 Cervicalgia M43.02 Spondylolysis, cervical maria e on Assessments Date Code Description Provider 05/09/2020 G43.719 Chronic migraine wit hout aura, intractable, without status migrainosus Yo Holly, M.DAbraham 05/09/2020 G43.719 Chronic migraine wit hout aura, intractable, without status migrainosus MRI 05/09/2020 G44.221 Chronic tension-type headache, i ntractable Yo Holly, M.D. 05/09/2020 G44.221 Chronic tension-type headache, i ntractable MRI 05/09/2020 M54.2 Cervicalgia Yo Holly, M.D . 05/09/2020 M54.2 Cervicalgia MRI 05/09/2020 M43.02 Spondylolysis, cervical region A bdul Odette BarreraDAbraham 05/09/2020 M43.02 Spondylolysis, cervical region M RI 04/03/2020 G43.719 Chronic migraine wit hout aura, intractable, without status migrainosus Elinor Leung M.D. 04/03/2020 G44.221 Chronic tension-type headache, i ntractable Elinor Leung M.D. 04/03/2020 M54.2 Cervicalgia Elinor Leung M.D. 04/03/2020 M43.02 Spondylolysis, cervical region Ayo Leung M.D. Plan of Treatment No Information Available Functional Status Description No Information Available Mental Status Description No Information Available Referrals Refer to Dr Reason for Referral Status Appt Elinor Perdue M.D. Created [facility] [address] [place] [address] [phone] Elinor Leung M.D. Created [facility] [address] [place] [address] [phone] Elinor Leung M.D. Created [facility] [address] [place] [address] [phone]
--- OUTSIDE RECORDS SUMMARY | 2020-05-31 15:56 | CCD | Continuity of Care Document ---
Author Author Renea MCGRATH PA Organization Unknown Address [address] [place] [address] Phone [phone] Care Team Providers Care Processing Rep Name Role Phone Gladys Franz MD [facility] [phone] Problems Description No Information Available Social History Type Date Description Comments Sex Unknown Tobacco Use Start: Unknown Never Used Smokeless Tobacco ETOH Use Denies alcohol use Tobacco Use Start: Unknown Patient has never smoked Recreational Drug Use Never Used Drugs Smoking Status Reviewed: 05/17/20 Patient has never smoked Exercise Type/Frequency Exercises regularly walk s Tattoo/Piercing Pierced ears Seat Belt/Car Seat Always uses seat belt Smoke Alarms Yes Smoke Alarms Carbon Monoxide Detector: Yes Allergies, Adverse Reactions, Alerts Active Allergies Reaction Severity Comments Date NKDA 05/17/2020 Cats 05/17/2020 Dust 05/17/2020 Hay Fever 05/17/2020 Medications Active Medications SIG Qnty Indications Ordering Provide r Date Montelukast Sodium 10mg Tablets 1 by mouth every day 90tabs Unknown Zyrtec Allergy 10mg Capsules 1 by mouth every day 90caps Unknown Atorvastatin Calcium 40mg Tablets take one tablet by mouth every day for cholesterol 90tabs Unknow n Furosemide 20mg Tablets take one tablet by mouth every day in the morning Kristopher Wilcox FACC 0 Albuterol Sulfate HFA 108(90Base) mcg/Act Aerosol inhale 2 puffs by mouth every 4 hours as needed Unknown Albuterol Sulfate (2 .5mg/3ML) 0.083% Nebulizer 1 unit dose ampule in nebulizer and inha led up to 4 times a day for coughing and wheezing Unknown Gabapentin 300mg Capsules 1 tablet 3 times a day for neck pain [facility] Duloxetine HCL 60mg Caps DR Part 1 by mouth every day 90caps Unknown Robaxin-750 750mg Tablets take one by mouth every 8 hours as needed [facility] Pantoprazole Sodium 40mg Tablets D R take one tablet by mouth bid 180tabs Unknown 00 Metoprolol Tartrate 25mg Tablets take one tablet by mouth twice a day [facility] Oxycodone HCL 5mg Capsules 1 cap by mouth every 6 hours as needed for ankle pain Unknown Acetaminophen 500mg Tablets 1-2 tablets three times a day as needed Unknown Sumatriptan Succinate 100mg Tablet s one tab by mouth at onset of headache, repeat once in one hour if needed [facility] Verapamil HCL 80mg Tablets 1 by mouth three times a day 270tabs Unknown Topiramate 50mg Tablets 2 pil ls at hs [facility] Immunizations Description No Information Available Vital Signs Date Vital Result Comment 05/17/2020 1:28pm BP Systolic 139 mmHg BP Diastolic 84 mmHg Heart Rate 83 /min Body Temperature 97.4 F Respiratory Rate 18 /min Height 61.50 inches 5'1.50" Weight 237.50 lb O2 % BldC Oximetry 98 % Peak Expiratory Flow Rate 340 Estimated Peak Flow Rate [place] Body Weight 105 lb BMI (Body Mass Index) 44.1 kg/m2 Results Test Acquired Date Facility Test Result H/L Range Note Urine Drug Screen 05/18/2020 [place] [address] [phone] Amphetamines Urine Reflex NEGATIVE Normal Negati ve Barbiturates Urine Reflex NEGATIVE Normal Negative Benzodiazepines Urine Reflex NEGATIVE Normal Negative Cannabinoids Urine Reflex NEGATIVE Normal Negative Cocaine Metabolite Urine Refle NEGATIVE Normal Negative Methadone Urine Reflex NEGATIVE Normal Negative Opiates Urine Reflex PENDING CONFIRMA <SEE NOTE> High Nega tive 1 Phencyclidine Urine Reflex NEGATIVE Normal Negative 2 Hemoglobin A1c 05/18/2020 [facility] nter [phone] Hemoglobin A1c 5.8 % Normal 3 Estimated Average Glucose 120 mg/dL High 60-110 Lipid Panel 05/18/2020 [facility] nter [phone] Triglycerides Level 147 mg/dL Normal <150 Cholesterol Level 176 mg/dL Normal <200 HDL Cholesterol 51 mg/dL Normal >40 LDL Cholesterol 96 mg/dL Normal <100 Non-HDL-C 125 mg/dL Normal Cholesterol Risk Ratio 3.450 Normal <5 Comprehensive Metabolic Profil 05/18/2020 [facility] [phone] Glucose, Fasting 91 mg/dL Normal 70-100 Blood Urea Nitrogen 17 mg/dL Normal 7-18 Creatinine For GFR 0.74 mg/dL Normal 0.55-1.30 Glomerular Filtration Rate > 60.0 Normal >58 4 Sodium Level 143 mEq/L Normal 136-145 Potassium Serum 4.9 mEq/L Normal 3.5-5.1 Chloride Level 107 mEq/L Normal 98-107 Carbon Dioxide Level 30 mEq/L Normal 21-32 Anion Gap 6 mEq/L Low 8-16 Calcium Level 9.6 mg/dL Normal 8.5-10.1 Ast/Sgot 27 U/L Normal 7-37 Alt/SGPT 78 U/L Normal 12-78 Alkaline Phosphatase 114 U/L Normal 45-117 Bilirubin,Total 0.4 mg/dL Normal 0.2-1.0 Total Protein 7.0 GM/DL Normal 6.4-8.2 Albumin 3.7 GM/DL Normal 3.2-5.2 Albumin/Globulin Ratio 1.1 Low 1.2-2.2 1 PENDING CONFIRMATION Confirmation Reflex test will be sent to [facility], [address] [place] [address] 2 ALL PRESUMPTIVE POSITIVE FINDINGS ARE UNCONFIRMED THRESHOLD IN NG/ML AMPHETAMINES 1000 BARBITURATES 200 BENZODIAZEPINES 200 CANNABINOIDS (THC) 50 COCAINE METABOLITE 300 METHADONE 300 OPIATES 300 PHENCYCLIDINE 25 RESULTS ARE FOR MEDICAL PURPOSES ONLY. FOR A LIST OF CLOSELY RELATED COMPOUNDS CALL THE LAB (X4354). URINE DRUG CLASSES THAT GIVE A POSITIVE RESULT WILL BE SENT OUT FOR QUANTITATIVE CONFIRMATION TO A REFERENCE LAB PROVIDED THERE IS A SUFFICIENT AMOUNT OF SPECIMEN REMAINING. 3 REFERENCE RANGES: <=5.6% NORMAL 5.7-6.4% SUGGESTS IMPAIRED GLUCOSE META BOLISM/PREDIABETIC >= 6.5% ABNORMAL 4 Units are mL/min/1.73 m2 Chronic Kidney Disease Staging per NKF: Stage I & II GFR >=60 Normal to Mildly Decreased Stage III GFR 30-59 Moderately Decreased Stage IV GFR 15-29 Severely Decreased Stage V GFR <15 Very Little GFR Left ESRD GFR <15 on FINANCIAL REPORTING ANALYST Procedures Description No Information Available Medical Devices Description No Information Available Encounters Type Date Location Provider Dx Diagnosis Office Visit 05/17/2020 1:30p Main Office Regina Mcgrath PA Z00.00 Encntr for general adult medical exam w/o abnormal findings E11.9 Type 2 diabetes mellitus wit hout complications E78.2 Mixed hyperlipidemia I10 Essential (primary) hyperten charisse K21.9 Gastro-esophageal reflux dis ease without esophagitis G43.909 Migraine, unsp, not intracta ble, without status migrainosus J45.20 Mild intermittent asthma, un complicated M19.071 Primary osteoarthritis, righ t ankle and foot Assessments Date Code Description Provider 05/17/2020 E11.9 Type 2 diabetes mellitus without complications Gladys Franz M.D. 05/17/2020 Z00.00 Encounter for genera l adult medical examination without abnormal findings Regina Mcgrath PA 05/17/2020 E78.2 Mixed hyperlipidemia Jacob Franz M.D. 05/17/2020 E11.9 Type 2 diabetes mellitus without complications Regina Mcgrath PA 05/17/2020 I10 Essential (primary) hypertension Gladys Franz M.D. 05/17/2020 E78.2 Mixed hyperlipidemia Regina Mcgrath PA 05/17/2020 K21.9 Gastro-esophageal reflux disease without esophagitis Gladys Franz M.D. 05/17/2020 I10 Essential (primary) hypertension Regina Mcgrath PA 05/17/2020 G43.909 Migraine, unspecifie d, not intractable, without status migrainosus Gladys Franz M.D. 05/17/2020 K21.9 Gastro-esophageal reflux disease without esophagitis Regina Mcgrath PA 05/17/2020 J45.20 Mild intermittent asthma, uncomp licated Gladys Franz M.D. 05/17/2020 G43.909 Migraine Elisa Mcgrath cia, PA 05/17/2020 M19.071 Primary osteoarthritis, right an kle and foot Gladys Franz M.D. 05/17/2020 J45.20 Mild intermittent asthma, uncomp licated Regina Mcgrath PA 05/17/2020 M19.071 Primary osteoarthritis, right an kle and foot Regina Mcgrath PA Plan of Treatment Future Appointment(s):* 08/15/2020 1:30 pm - Gladys Franz M.D. at Main Office Functional Status Functional Condition Comment Date Status Bifocal glasses Active Independent with all ADL's Activ e Complete lower and upper and lower dentures Active Independent with all IADL's Acti ve Mental Status Mental Condition Comment Date Status Impaired Memory Active Trouble with reading, poor speller Active Referrals Description No Information Available
--- OUTSIDE RECORDS SUMMARY | 2020-05-31 15:56 | CCD | Continuity of Care Document ---
Author Author Renea CROFT Organization Unknown Address [address] [place] [address] Phone [phone] Care Team Providers Care Senior Business Development Manager Name Role Phone Pat Alonzo DO AUTM [...] lb BMI (Body Mass Index) 39.9 kg/m2 [place] Body Weight 125 lb Results Description No Information Available Procedures Description No Information Available Medical Devices Description No Information Available Encounters Type Date Location Provider Dx Diagnosis Office Visit 04/03/2020 12:00p [facility] Odette Ordonez G43.719 Chronic migraine w/o aura, [...] 11:45 am - Elinor Leung M.D. at [facility] Functional Status Description No Information Available Mental Status Description No Information Available Referrals Refer to Dr Reason for Referral Status Appt Date Elinor Leung M.D. Created [facility] [address] [place] [address] [phone] Elinor Leung M.D. Created [facility] [address] [place], [place] [id number] [phone]
--- OUTSIDE RECORDS SUMMARY | 2020-05-31 15:56 | CCD | Continuity of Care Document ---
Author Author Renea CROFT Organization Unknown Address [address] [place] [address] Phone [phone] Care Team Providers Care Lawyers Name Role Phone Pat Alonzo DO AUTM [phone] Problems Active Problems Provider Date Chronic intractable [...] lb BMI (Body Mass Index) 39.9 kg/m2 [place] Body Weight 125 lb Results Description No Information Available Procedures Description No Information Available Medical Devices Description No Information Available Encounters Type Date Location Provider Dx Diagnosis Office Visit 04/03/2020 12:00p [facility] Odette Ordonez G43.719 Chronic migraine w/o aura, [...] 11:45 am - Elinor Leung M.D. at [facility] Functional Status Description No Information Available Mental Status Description No Information Available Referrals Refer to Dr Reason for Referral Status Appt Date Elinor Leung M.D. Created [facility] [address] [place] [address] [phone] Elinor Leung M.D. Created [facility] [address] [place], [place] [id number] [phone]
--- OUTSIDE RECORDS SUMMARY | 2020-05-31 15:56 | CCD ---
Author Author [facility] Organization [facility] Address Unknown Phone Unavailable Care Team Providers Care Site Damage Prevention Technician Name Role Phone Pat Archer Unavailable PROBLEMS Type Condition ICD9-CM Code DQQ18-HE Code Onset Dates Condition S tatus W/U Status Risk SNOMED Code Notes Problem Other hyperlipidemia E78.4 Active confirmed 03444583 Problem Obstructive sleep apnea (adult) (pediatric) G47.33 Active confirmed 85031497 Problem Surgical menopause, symptomatic E89.41 Active confi rmed 510482702 Problem Asthma, extrinsic, unspecified asthma severity, uncomp licated J45.909 Active confirmed 029321232 Problem Duodenal ulcer disease K26.9 Active confirmed 35854826 Problem Severe episode of recurrent major depressive disorder, without psychotic features F33.2 Active confirmed 94187837 Problem Irritable bowel syndrome with both constipation and diarrh ea K58.2 Active confirmed 35818653 Problem Morbid (severe) obesity due to excess calories E66 .01 Active confirmed 47544746575409 Problem Low back pain M54.5 Active confirmed 786940 009 Problem Cervicalgia M54.2 Active confirmed 16895795 84052 Problem Primary osteoarthritis of right knee M17.11 Act waqas confirmed 972419415503621 Problem Migraine without status migr ainosus, not intractable, unspecified migraine type G43.909 Active confirmed 82073718 Problem Irritable bowel syndrome with diarrhea K58.0 A ctive confirmed 528887237 Problem Gastro-esophageal reflux disease without esophagitis K21.9 Active confirmed 847057031 Problem New daily persistent headache G44.52 Active co nfirmed 825104204565804 Problem Other chronic pain G89.29 Active confirmed 8 3827746 Problem Type 2 diabetes mellitus without complications E11 .9 Active confirmed 301737042 Problem Essential (primary) hypertension I10 Active conf irmed 94637531 Problem Myalgia, other site M79.18 Active confirmed 56052745 Problem Facet arthropathy, 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 Active confirme d 349543228 Problem Facet arthropathy, cervical M47.812 Active confirme d 454083263 Problem Pain in thoracic spine M54.6 Active confirmed 560273964 ALLERGIES Allergen (clinical drug ingredient) Drug/Non Drug Allergy do cumented on EMR Reaction Allergy Type Onset Date Status amitriptyline Amitriptyline HCl([facility] Code:[address]-11) Hives Dr ug Allergy Active cats Eyes water Non Drug Allergy Active acetaminophen / oxycodone Percocet([facility] Code:[address]-69) Hives Drug Allergy Active ENCOUNTERS from 1973 to 2020-05-27 Encounter Location Date Provider Diagnosis [id number] [place] [address] May, 19 Pat Chris-Tartell RLQ abdominal pain R10.31 IMMUNIZATIONS Vaccine Route Administration Date Status TDAP 0.5mL (Boostrix) IM Intramuscular August 08, 2016 Administe red Influenza 6mo & up Fluzone IM Intramuscular Mar 09, 2018 Admi nistered Influenza 6mo & up Fluzone IM Intramuscular Apr 25, 2017 Admi nistered Influenza 6mo & up Fluzone IM Intramuscular Jan 30, 2016 Admi nistered Influenza 6mo & up Fluzone IM Intramuscular Feb 17, 2015 Admi nistered SOCIAL HISTORY Tobacco Use: Social History Observation [...] FOR REFERRAL No Information VITAL SIGNS Weight 233 per pt lbs May, Height 62 in May, BMI 43.71 kg/m2 May, Heart Rate 90 /min May, Respiratory Rate 20 /min May, Temperature 97.3 degrees Fahrenheit May, Oximetry 96 May, Blood pressure systolic 132 mm Hg May, Blood pressure diastolic 80 mm Hg May, MEDICATIONS Medication SIG (Take, Route, Frequency, Duration) [...] as needed Orally Once a day for Active IBU-200 200 MG 2 tabs with [...] RESULTS No Results REASON FOR VISIT 1 week, does not feel any better, right abd pain, n/v temp 101.5, 101.8 sat 04/29 , negative covid 04/28 MEDICAL (GENERAL) HISTORY Type Description Date Medical [...] History perimenopause Medical History Chest pain - [employer] Dr Castañeda - Nuclear stress test - [...] Notes Treatment Notes Treatm ent Clinical Notes May, RLQ abdominal pain (ICD-10 - R10.31) With her significant discomfort, I sent her to the ED. Requires imaging to ensure no appendicitis. Called the ED to report my concerns and that the patient was on her way. PLAN OF TREATMENT Treatment Notes Assessment Notes Clinical Notes RLQ abdominal pain With her significant discomfort, I sent her to the ED. Requires imaging to ensure no appendicitis. Called the ED to report my concerns and that the patient was on her way. Next Appt Details Provider Name:Zahra Clark, 2020-05-31 01:30:00 PM, [address] [place], [address], Insurance Providers Payer Name Payer Address Payer Phone Insured Name Patient Relati onship to Insured Coverage Start Date Coverage End Date [employer] BILL [address] [address] [facility] [address] SEJAL SCHERER MEDICAID [employer] [address] [facility] [id number] SEJAL SCHERER
--- OUTSIDE RECORDS SUMMARY | 2020-05-31 15:56 | CCD | Continuity of Care Document ---
Author Author Renea MCGRATH PA Organization Unknown Address [address] [place] [address] Phone [phone] Care Team Providers Care Agronomist Name Role Phone Gladys Franz MD [facility] [phone] Problems Description No Information Available Social History [...] one tablet by mouth twice a day [facility] Oxycodone HCL 5mg Capsules 1 cap by mouth every 6 hours as needed for ankle pain Unknown Acetaminophen 500mg Tablets 1-2 tablets three times a day as needed Unknown Sumatriptan Succinate 100mg Tablet s one tab by mouth at onset of headache, repeat once in one hour if needed [facility] Verapamil HCL 80mg Tablets 1 by mouth three times a day 270tabs Unknown Topiramate 50mg Tablets 2 pil ls at hs [facility] Immunizations Description No Information Available Vital Signs Date Vital Result Comment 05/17/2020 1:28pm BP Systolic 139 mmHg BP Diastolic 84 mmHg Heart Rate 83 /min Body Temperature 97.4 F Respiratory Rate 18 /min Height 61.50 inches 5'1.50" Weight 237.50 lb O2 % BldC Oximetry 98 % Peak Expiratory Flow Rate 340 Estimated Peak Flow Rate [place] Body Weight 105 lb BMI (Body Mass Index) 44.1 kg/m2 Results Test Acquired Date Facility Test Result H/L Range Note Urine Drug Screen 05/18/2020 [place] [address] [phone] Amphetamines Urine Reflex NEGATIVE Normal Negati ve Barbiturates Urine Reflex NEGATIVE Normal Negative Benzodiazepines Urine Reflex NEGATIVE Normal Negative Cannabinoids Urine Reflex NEGATIVE Normal Negative Cocaine Metabolite Urine Refle NEGATIVE Normal Negative Methadone Urine Reflex NEGATIVE Normal Negative Opiates Urine Reflex PENDING CONFIRMA <SEE NOTE> High Nega tive 1 Phencyclidine Urine Reflex NEGATIVE Normal Negative 2 Hemoglobin A1c 05/18/2020 [facility] nter [phone] Hemoglobin A1c 5.8 % Normal 3 Estimated Average Glucose 120 mg/dL High 60-110 Lipid Panel 05/18/2020 [facility] nter [phone] Triglycerides Level 147 mg/dL Normal <150 Cholesterol Level 176 mg/dL Normal <200 HDL Cholesterol 51 mg/dL Normal >40 LDL Cholesterol 96 mg/dL Normal <100 Non-HDL-C 125 mg/dL Normal Cholesterol Risk Ratio 3.450 Normal <5 Comprehensive Metabolic Profil 05/18/2020 [facility] [phone] Glucose, Fasting 91 mg/dL Normal 70-100 Blood [...] Confirmation Reflex test will be sent to [facility] [place], [address] [place] [address] 2 ALL PRESUMPTIVE POSITIVE FINDINGS ARE UNCONFIRMED THRESHOLD IN NG/ML AMPHETAMINES 1000 BARBITURATES 200 BENZODIAZEPINES 200 CANNABINOIDS (THC) 50 COCAINE METABOLITE 300 METHADONE 300 OPIATES 300 PHENCYCLIDINE 25 RESULTS ARE FOR MEDICAL PURPOSES ONLY. FOR A LIST OF CLOSELY RELATED COMPOUNDS CALL THE LAB (X7304). URINE DRUG CLASSES THAT GIVE A POSITIVE [...] Little GFR Left ESRD GFR <15 on [employer] Procedures Description No Information Available Medical Devices [...]
--- OUTSIDE RECORDS SUMMARY | 2020-05-31 15:56 | CCD | Continuity of Care Document ---
Author Author Renea CROFT Organization Unknown Address [address] [place] [address] Phone [phone] Care Team Providers Care Fiber Optics Supervisor Name Role Phone Pat Alonzo DO AUTM [phone] Problems Active Problems Provider Date Chronic intractable [...] lb BMI (Body Mass Index) 39.9 kg/m2 [place] Body Weight 125 lb Results Description No Information Available Procedures Date Code Description Status 05/09/2020 48672 MRI Spine Cervical W/O Contrast Completed 05/09/2020 99784 MRI Spine Cervical W/O Contrast Completed 05/09/2020 43967 MRI Brain W/O Contrast Completed 05/09/2020 88114 MRI Brain W/O Contrast Completed Medical Devices Description No Information Available Encounters Type Date Location Provider Dx Diagnosis Office Visit 04/03/2020 12:00p Main [facility] Ordonez G43.719 Chronic migraine w/o aura, [...] 05/09/2020 M43.02 Spondylolysis, cervical region A bdul Holly, Ayo.DAbraham 05/09/2020 M43.02 Spondylolysis, cervical region M RI 04/03/2020 G43.719 Chronic migraine wit hout aura, intractable, without status migrainosus Elinor Leung M.D. 04/03/2020 G44.221 Chronic tension-type headache, i ntractable Elinor Leung M.D. 04/03/2020 M54.2 Cervicalgia Elinor Leung M.D. 04/03/2020 M43.02 Spondylolysis, cervical region M britney Leung M.D. Plan of Treatment No Information Available Functional Status Description No Information Available Mental Status Description No Information Available Referrals Refer to Reason for Referral Status Appt Elinor Perdue M.D. Created [facility] [address] [place] [address] [phone] Elinor Leung M.D. Created [facility] [address] [place] [address] [phone] Elinor Leung M.D. Created [facility] [address] [place] [address] [phone]
--- OUTSIDE RECORDS SUMMARY | 2020-05-31 15:56 | CCD ---
Author Author [facility] Organization [facility] Address Unknown Phone Unavailable Care Team Providers Care Language Specialist Name Role Phone Pat Archer Unavailable PROBLEMS Type Condition ICD9-CM Code [id number] Code Onset Dates Condition S tatus W/U Status Risk SNOMED Code Notes Problem Other hyperlipidemia E78.4 Active confirmed 32843710 Problem Obstructive sleep apnea (adult) (pediatric) G47.33 Active confirmed 46221420 Problem Surgical menopause, symptomatic E89.41 Active confi rmed 932162191 Problem Asthma, extrinsic, unspecified asthma severity, uncomp licated J45.909 Active confirmed 817007153 Problem Duodenal ulcer disease K26.9 Active confirmed 91044162 Problem Severe episode of recurrent major depressive disorder, without psychotic features F33.2 Active confirmed 53846410 Problem Irritable bowel syndrome with both constipation and diarrh ea K58.2 Active confirmed 61479707 Problem Morbid (severe) obesity due to excess calories E66 .01 Active confirmed 99886963310533 Problem Low back pain M54.5 Active confirmed 421161 009 Problem Cervicalgia M54.2 Active confirmed 30756828 34069 Problem Primary osteoarthritis of right knee M17.11 Act waqas confirmed 282278180337929 Problem Migraine without status migr ainosus, not intractable, unspecified migraine type G43.909 Active confirmed 50817887 Problem Irritable bowel syndrome with diarrhea K58.0 A ctive confirmed 182832672 Problem Gastro-esophageal reflux disease without esophagitis K21.9 Active confirmed 507475618 Problem New daily persistent headache G44.52 Active co nfirmed 377266653477106 Problem Other chronic pain G89.29 Active confirmed 8 5177863 Problem Type 2 diabetes mellitus without complications E11 .9 Active confirmed 525686372 Problem Essential (primary) hypertension I10 Active conf irmed 69672111 Problem Myalgia, other site M79.18 Active confirmed 98569047 Problem Facet arthropathy, 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 Active confirme d 952180891 Problem Facet arthropathy, cervical M47.812 Active confirme d 297332910 Problem Pain in thoracic spine M54.6 Active confirmed 244748443 ALLERGIES Allergen (clinical drug ingredient) Drug/Non Drug Allergy do cumented on EMR Reaction Allergy Type Onset Date Status amitriptyline Amitriptyline HCl([facility] Code:[address]-01) Hives Dr ug Allergy Active cats Eyes water Non Drug Allergy Active acetaminophen / oxycodone Percocet([facility] Code:[address]-47) Hives Drug Allergy Active ENCOUNTERS from 1973 to 2020-05-09 Encounter Location Date Provider Diagnosis [address] [place] [address] Apr, 21 Pat Chris-Tartell Cough R05 ; Upper respiratory symptom R0 9.89 ; Diarrhea, unspecified type R19.7 and Chest discomfort R07.89 IMMUNIZATIONS Vaccine Route Administration Date Status TDAP [...] FOR REFERRAL No Information VITAL SIGNS Weight 239 lbs Apr, Height 62 in Apr, BMI 43.71 kg/m2 Apr, Heart Rate 106 /min Apr, Respiratory Rate 20 /min Apr, Temperature 97.7 degrees Fahrenheit Apr, Oximetry 97 Apr, Blood pressure systolic 136 mm Hg Apr, Blood pressure diastolic 86 mm Hg Apr, MEDICATIONS Medication SIG (Take, Route, Frequency, Duration) Notes Start Da te End Date Status Furosemide 20 MG 1 tablet Orally Once a day for 90 day(s) Oct, Active Sumatriptan Succinate 100 MG 1 tablet at least 2 hours between doses as needed Orally Twice a day Active Topiramate 50 MG 2 tablet Orally Once a day Active Robaxin-750 750 MG 1 tablet Orally Q8H PRN Mar, Active Oxycodone HCl 5 MG 1 tablet as needed MDD 2 Orally every 6 hrs f or 30 Days Apr, Active One Touch Ultra Test Strips 1 as directed intradermall y daily dx: E11.9 for 50 days Jun, Active Zyrtec Allergy 10 mg 1 tablet as needed Orally Once a day for 90 Active Gabapentin 300 MG 1 capsule Orally three times a day for 30 days Nov, Active Duloxetine HCl 60 MG 1 capsule Orally Once a day for 30 days Sep, Active ProAir HFA 108 (90 Base) MCG/ACT inhale two puffs by m out every 4 hours as needed for 30 days Active Lancets 1 as directed intradermally daily dx:E11.9 for 50 days Jun, Active Blood Glucose System Binu - meter Dx: E11.9 Daily for 30 Days Jun, Active Doxycycline Hyclate 100 MG 1 capsule Orally bid for 7 day(s) Apr, Active PredniSONE 20 MG 2 tablets Orally Once a day for 2 days Mar, Not-Taking Protonix 40 MG 1 tablet Orally twice daily for 90 Active Nebulizer Compressor - as directed _Dx:J45.909 _ for 30 Days Mar, Active Acetaminophen 500 MG 2 caps as needed Orally every 6 hrs Active Atorvastatin Calcium 40 MG 1 tablet Orally Once a day for 90 Active IBU-200 200 MG 2 tabs with food or milk as needed Orally Three time s a day Not-Taking Metoprolol Tartrate 25 MG 1 tablet with food Orally Twice a day for 30 day(s) Mar, Active Verapamil HCl 80 MG 1 tablet Orally Three times a day for 30 day(s) Active Albuterol Sulfate (2.5 MG/3ML) 0.083% 3 ml Inhalation DX:J45.909 Three times a day as needed for 30 days Active Singulair 10 mg 1 tablet in the evening Orally Once a day for 90 Active Nebulizers - as directed _Dx J45.909 _ for 30 Days Mar, Active PROCEDURES No Information RESULTS No Results REASON FOR VISIT still not well and covid results not in MEDICAL (GENERAL) HISTORY Type Description Date Medical [...] History perimenopause Medical History 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 CXR ordered. Apr, Upper respiratory symptom (ICD-10 - R09.89) Possible sinusitis; will evaluate pending results of testing. Apr, Diarrhea, unspecified type (ICD-10 - R19.7) GI panel ordered. Apr, Chest discomfort (ICD-10 - R07.89) EKG performed and reviewed, CXR ordered. PLAN OF TREATMENT Medication Medication Name Sig Start Date Stop Date Doxycycline Hyclate 100 MG 1 capsule Orally bid for 7 day(s) Apr, Treatment Notes Assessment Notes Clinical Notes Cough Tested negative for flu and COVID-19 in office. CXR ordered. Upper respiratory symptom Possible sinus itis; will evaluate pending results of testing. Diarrhea, unspecified type GI panel orde red. Chest discomfort EKG performed and re viewed, CXR ordered. Treatment Notes Test Name Order Date Rapid Flu ([place]ha Influenza A+B NATALI) 2020-04-26 ELECTROCARDIOGRAM, COMPLETE EKG 2020-04-26 Future Test Test Name Order Date ADM CHEST 2 VIEW [id number] Next Appt Details Provider Name:Pat Archer, 2020-05-11 10:00:00 AM, [address], [place], [address], Insurance Providers Payer Name Payer Address Payer Phone Insured Name Patient Relati onship to Insured Coverage Start Date Coverage End Date [employer] GOLD [address] [address] [facility] [phone] SEJAL SCHERER MEDICAID [employer] [address] [facility] [id number] SEJAL SCHERER
--- OUTSIDE RECORDS SUMMARY | 2020-05-31 15:57 | CCD ---
Author Author [facility] Organization [facility] Address Unknown Phone Unavailable Care Team Providers Care Stove Installer Name Role Phone Pat Archer Unavailable PROBLEMS Type Condition ICD9-CM Code [id number] Code Onset Dates Condition S tatus SNOMED Code Notes Problem Other hyperlipidemia E78.4 Active 82754720 Problem Obstructive sleep apnea (adult) (pediatric) G47.33 Active 68339196 Problem Surgical menopause, symptomatic E89.41 Active 695718232 Problem Asthma, extrinsic, unspecified asthma severity, uncomp licated J45.909 Active 051458473 Problem Duodenal ulcer disease K26.9 Active 02254971 Problem Severe episode of recurrent major depressive disorder, without psychotic features F33.2 Active 62079666 Problem Irritable bowel syndrome with both constipation and diarrh ea K58.2 Active 78785477 Problem Morbid (severe) obesity due to excess calories E66 .01 Active 88128692717643 Problem Low back pain M54.5 Active 704370050 Problem Cervicalgia M54.2 Active 2009193024361 Problem Primary osteoarthritis of right knee M17.11 Act waqas 741652230557182 Problem Migraine without status migr ainosus, not intractable, unspecified migraine type G43.909 Active 04434312 Problem Irritable bowel syndrome with diarrhea K58.0 A ctive 868459163 Problem Gastro-esophageal reflux disease without esophagitis K21.9 Active 025214111 Problem New daily persistent headache G44.52 Active 12 1195703131423 Problem Other chronic pain G89.29 Active 47267590 Problem Type 2 diabetes mellitus without complications E11 .9 Active 847473620 Problem Essential (primary) hypertension I10 Active 02733923 Problem Myalgia, other site M79.18 Active 48111003 Problem Facet arthropathy, 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 Active 2679 97190 Problem Facet arthropathy, cervical M47.812 Active 2679 30490 Problem Pain in thoracic spine M54.6 Active 082028378 ALLERGIES Allergen (clinical drug ingredient) Drug/Non Drug Allergy do cumented on EMR Reaction Allergy Type Onset Date Status amitriptyline Amitriptyline HCl([facility] Code:[address]-72) Hives Dr ug Allergy Active cats Eyes water Non Drug Allergy Active acetaminophen / oxycodone Percocet([facility] Code:[address]-41) Hives Drug Allergy Active ENCOUNTERS from 1975 to 2020-05-02 Encounter Location Date Provider Diagnosis [facility] [address] [place] [address] Apr, Pat Chris-Tartell IMMUNIZATIONS Vaccine Route Administration Date [...] Information RESULTS No Results REASON FOR VISIT sample collection MEDICAL (GENERAL) HISTORY Type Description Date Medical [...] History perimenopause Medical History 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
--- OUTSIDE RECORDS SUMMARY | 2020-05-31 15:57 | CCD ---
Author Author [facility] Organization [facility] Address Unknown Phone Unavailable Care Team Providers Care Airport Clerk Name Role Phone Pat Archer Unavailable PROBLEMS Type Condition ICD9-CM Code AOB16-SS Code Onset Dates Condition S tatus SNOMED Code Notes Problem Other hyperlipidemia E78.4 Active 07829641 Problem Obstructive sleep apnea (adult) (pediatric) G47.33 Active 05401733 Problem Surgical menopause, symptomatic E89.41 Active 057518582 Problem Asthma, extrinsic, unspecified asthma severity, uncomp licated J45.909 Active 460454391 Problem Duodenal ulcer disease K26.9 Active 87136196 Problem Severe episode of recurrent major depressive disorder, without psychotic features F33.2 Active 06954747 Problem Irritable bowel syndrome with both constipation and diarrh ea K58.2 Active 46545971 Problem Morbid (severe) obesity due to excess calories E66 .01 Active 30262951907328 Problem Low back pain M54.5 Active 829079600 Problem Cervicalgia M54.2 Active 1861086169822 Problem Primary osteoarthritis of right knee M17.11 Act waqas 505717894657614 Problem Migraine without status migr ainosus, not intractable, unspecified migraine type G43.909 Active 31237057 Problem Irritable bowel syndrome with diarrhea K58.0 A ctive 178879179 Problem Gastro-esophageal reflux disease without esophagitis K21.9 Active 537993738 Problem New daily persistent headache G44.52 Active 12 9481385112216 Problem Other chronic pain G89.29 Active 36641266 Problem Type 2 diabetes mellitus without complications E11 .9 Active 976215899 Problem Essential (primary) hypertension I10 Active 13769899 Problem Myalgia, other site M79.18 Active 00179819 Problem Facet arthropathy, 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 Active 2679 43067 Problem Facet arthropathy, cervical M47.812 Active 2679 10578 Problem Pain in thoracic spine M54.6 Active 504743167 ALLERGIES Allergen (clinical drug ingredient) Drug/Non Drug Allergy do cumented on EMR Reaction Allergy Type Onset Date Status amitriptyline Amitriptyline HCl([facility] Code:[address]-79) Hives Dr ug Allergy Active cats Eyes water Non Drug Allergy Active acetaminophen / oxycodone Percocet([facility] Code:[address]-62) Hives Drug Allergy Active ENCOUNTERS from 1973 to 2020-04-28 Encounter Location Date Provider Diagnosis [facility] [address] [place] [address] Apr, Pat Chris-Tartell IMMUNIZATIONS Vaccine Route Administration [...] Orally Once a day for 90 Active Furosemide 20 MG 1 tablet Orally Once a day for 90 day(s) Oct, Active Sumatriptan Succinate 100 MG 1 tablet at least 2 hours between doses as needed Orally Twice a day Active Duloxetine HCl 60 MG 1 capsule Orally Once a day for 30 days Sep, Active One Touch Ultra Test Strips 1 as directed intradermall y daily dx: E11.9 for 50 days Jun, Active Oxycodone HCl 5 MG 1 tablet as needed MDD 2 Orally every 6 hrs f or 30 Days Apr, Active Gabapentin 300 MG 1 capsule Orally three times a day for 30 days Nov, Active Metoprolol Tartrate 25 MG 1 tablet with food Orally Twice a day for 30 day(s) Mar, Active ProAir HFA 108 (90 Base) MCG/ACT inhale two puffs by m outh every 4 hours as needed for 30 days Active Lancets 1 as directed intradermally daily dx:E11.9 for 50 days Jun, Active Blood Glucose System Binu - meter Dx: E11.9 Daily for 30 Days Jun, Active IBU-200 200 MG 2 tabs with [...] times a day for 30 day(s) Active Atorvastatin Calcium 40 MG 1 tablet Orally Once a day for 90 Active Nebulizer Compressor - as directed _Dx:J45.909 _ for 30 Days Mar, Active Acetaminophen 500 MG 2 caps as needed Orally every 6 hrs Active Robaxin-750 750 MG 1 tablet Orally Q8H PRN Mar, Active Albuterol Sulfate (2.5 MG/3ML) 0.083% 3 ml Inhalation DX:J45.909 Three times a day as needed for 30 days Active Singulair 10 mg 1 tablet in the evening Orally Once a day for 90 Active Topiramate 50 MG 2 tablet Orally Once a day Active PROCEDURES No Information RESULTS No Results REASON FOR VISIT No Information MEDICAL (GENERAL) HISTORY Type Description Date Medical [...] History perimenopause Medical History 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
--- OUTSIDE RECORDS SUMMARY | 2020-05-31 15:57 | CCD ---
Author Author [facility] Organization [facility] Address Unknown Phone Unavailable Care Team Providers Care Supervisor Facepiece Line Name Role Phone Pat Archer Unavailable PROBLEMS Type Condition ICD9-CM Code TIC01-CH Code Onset Dates Condition S tatus SNOMED Code Notes Problem Other hyperlipidemia E78.4 Active 81425000 Problem Obstructive sleep apnea (adult) (pediatric) G47.33 Active 68596097 Problem Surgical menopause, symptomatic E89.41 Active 859714708 Problem Asthma, extrinsic, unspecified asthma severity, uncomp licated J45.909 Active 509447624 Problem Duodenal ulcer disease K26.9 Active 16076405 Problem Severe episode of recurrent major depressive disorder, without psychotic features F33.2 Active 27552932 Problem Irritable bowel syndrome with both constipation and diarrh ea K58.2 Active 98800465 Problem Morbid (severe) obesity due to excess calories E66 .01 Active 32250309505022 Problem Low back pain M54.5 Active 846141950 Problem Cervicalgia M54.2 Active 0992948376757 Problem Primary osteoarthritis of right knee M17.11 Act waqas 361385522404188 Problem Migraine without status migr ainosus, not intractable, unspecified migraine type G43.909 Active 33588775 Problem Irritable bowel syndrome with diarrhea K58.0 A ctive 724279328 Problem Gastro-esophageal reflux disease without esophagitis K21.9 Active 259935065 Problem New daily persistent headache G44.52 Active 12 8787147431667 Problem Other chronic pain G89.29 Active 18358295 Problem Type 2 diabetes mellitus without complications E11 .9 Active 011625066 Problem Essential (primary) hypertension I10 Active 33430061 Problem Myalgia, other site M79.18 Active 36890023 Problem Facet arthropathy, 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 Active 2679 87518 Problem Facet arthropathy, cervical M47.812 Active 2679 16615 Problem Pain in thoracic spine M54.6 Active 571975500 ALLERGIES Allergen (clinical drug ingredient) Drug/Non Drug Allergy do cumented on EMR Reaction Allergy Type Onset Date Status amitriptyline Amitriptyline HCl([facility] Code:[address]-70) Hives Dr ug Allergy Active cats Eyes water Non Drug Allergy Active acetaminophen / oxycodone Percocet([facility] Code:[address]-24) Hives Drug Allergy Active ENCOUNTERS from 1973 to 2020-04-20 Encounter Location Date Provider Diagnosis [facility] [address] [place] [address] 13 Apr, 21 Pat Chris-Tartell IMMUNIZATIONS Vaccine Route [...] History perimenopause Medical History 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
--- OUTSIDE RECORDS SUMMARY | 2020-05-31 15:57 | CCD ---
Author Author [facility] Organization [facility] Address Unknown Phone Unavailable Care Team Providers Care Industrial Engineering Manager Name Role Phone aPt Archer Unavailable PROBLEMS Type Condition ICD9-CM Code ZNJ11-LW Code Onset Dates Condition S tatus SNOMED Code Notes Problem Other hyperlipidemia E78.4 Active 78057992 Problem Obstructive sleep apnea (adult) (pediatric) G47.33 Active 85504995 Problem Surgical menopause, symptomatic E89.41 Active 641579503 Problem Asthma, extrinsic, unspecified asthma severity, uncomp licated J45.909 Active 215315771 Problem Duodenal ulcer disease K26.9 Active 24316440 Problem Severe episode of recurrent major depressive disorder, without psychotic features F33.2 Active 05849876 Problem Irritable bowel syndrome with both constipation and diarrh ea K58.2 Active 25848091 Problem Morbid (severe) obesity due to excess calories E66 .01 Active 93809431830432 Problem Low back pain M54.5 Active 564410110 Problem Cervicalgia M54.2 Active 3335764828251 Problem Primary osteoarthritis of right knee M17.11 Act waqas 029972881694796 Problem Migraine without status migr ainosus, not intractable, unspecified migraine type G43.909 Active 27445308 Problem Irritable bowel syndrome with diarrhea K58.0 A ctive 088639623 Problem Gastro-esophageal reflux disease without esophagitis K21.9 Active 595195472 Problem New daily persistent headache G44.52 Active 12 6771154296151 Problem Other chronic pain G89.29 Active 36394922 Problem Type 2 diabetes mellitus without complications E11 .9 Active 222709348 Problem Essential (primary) hypertension I10 Active 85944706 Problem Myalgia, other site M79.18 Active 88659646 Problem Facet arthropathy, 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 Active 2679 52486 Problem Facet arthropathy, cervical M47.812 Active 2679 45465 Problem Pain in thoracic spine M54.6 Active 671064432 ALLERGIES Allergen (clinical drug ingredient) Drug/Non Drug Allergy do cumented on EMR Reaction Allergy Type Onset Date Status amitriptyline Amitriptyline HCl([facility] Code:[address]-37) Hives Dr ug Allergy Active cats Eyes water Non Drug Allergy Active acetaminophen / oxycodone Percocet([facility] Code:[address]-24) Hives Drug Allergy Active ENCOUNTERS from 1973 to 2020-04-22 Encounter Location Date Provider Diagnosis [facility] [address] [place] [address] 15 Apr, Pat Chris-Tartell IMMUNIZATIONS Vaccine Route Administration [...] a day for 30 day(s) Mar, Active Robaxin-750 750 MG 1 tablet Orally Q8H PRN Mar, Active Furosemide 20 MG 1 tablet Orally Once a day for 90 day(s) Oct, Active Blood Glucose System Binu - meter Dx: E11.9 Daily for 30 Days Jun, Active PredniSONE 20 MG 2 tablets Orally Once a day for 2 days Mar, Not-Taking One Touch Ultra Test Strips 1 as directed intradermall y daily dx: E11.9 for 50 days Jun, Active Nebulizer Compressor - as directed _Dx:J45.909 _ for 30 Days Mar, Active Lancets 1 as directed intradermally daily dx:E11.9 for 50 days Jun, Active ProAir HFA 108 (90 Base) MCG/ACT inhale two puffs by m outh every 4 hours as needed for 30 days Active Albuterol Sulfate (2.5 MG/3ML) 0.083% 3 ml Inhalation DX:J45.909 Three times a day as needed for 30 days Active Duloxetine HCl 60 MG 1 capsule Orally Once a day for 30 days Sep, Active Zyrtec Allergy 10 mg 1 tablet as needed Orally Once a day for 90 Active Gabapentin 300 MG 1 capsule Orally three times a day for 30 days Nov, Active Acetaminophen 500 MG 2 caps as needed Orally every 6 hrs Active Oxycodone HCl 5 MG 1 tablet as needed MDD 2 Orally every 6 hrs f or 30 Days Apr, Active Singulair 10 mg 1 tablet in the evening Orally Once a day for 90 Active Protonix 40 MG 1 tablet Orally twice daily for 90 Active Nebulizers - as directed _Dx J45.909 _ for 30 Days Mar, Active Oxygen nasal cannula 1 lpm at night Active Atorvastatin Calcium 40 MG 1 tablet Orally Once a day for 90 Active IBU-200 200 MG 2 tabs with food or milk as needed Orally Three time s a day Not-Taking PROCEDURES No Information RESULTS No Results REASON [...] History perimenopause Medical History 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
--- OUTSIDE RECORDS SUMMARY | 2020-05-31 15:58 | CCD ---
Author Author [facility] Organization [facility] Address Unknown Phone Unavailable Care Team Providers Care Fortune Teller Name Role Phone Terence Krishnamurthy Unavailable Unavailable BirklTerence meeks Unavailable Unavailable BirklTerence meeks Unavailable Unavailable BirklTerence meeks Unavailable Unavailable Terence Krishnamurthy Unavailable Unavailable Terence Krishnamurthy Unavailable Unavailable BirklTerence meeks Unavailable Unavailable Terence Krishnamurthy Unavailable Unavailable Terence Krishnamurthy Unavailable Unavailable Terence Krishnamurthy Unavailable Unavailable DianeklTerence meeks Unavailable Unavailable DianeklTerence meesk Unavailable Unavailable DianeklTerence meeks Unavailable Unavailable Dianeklin, Terence Karthik PA Unavailable Unavailable BirklinTerence PA Unavailable Unavailable BirklinTerence PA Unavailable Unavailable Birklin, Terence Angeles PA [...] Unavailable Birklin, Terence Angeles PA Unavailable Unavailable Kocan, J Shaina MOLD CHANGER Unavailable Unavailable Kocan, J Shaina MOLD CHANGER Unavailable Unavailable Kocan, J Shaina MOLD CHANGER Unavailable Unavailable Kocan, J Shaina MOLD CHANGER Unavailable Unavailable Kocan, J Shaina MOLD CHANGER Unavailable Unavailable Kocan, J Shaina MOLD CHANGER Unavailable Unavailable Kocan, J Shaina MOLD CHANGER Unavailable Unavailable Kocan, J Shaina MOLD CHANGER Unavailable Unavailable Kocan, J Shaina MOLD CHANGER Unavailable Unavailable Kocan, J Shaina MOLD CHANGER Unavailable Unavailable Kocan, J Shaina MOLD CHANGER Unavailable Unavailable Kocan, J Shaina MOLD CHANGER Unavailable Unavailable Kocan, J Shaina MOLD CHANGER Unavailable Unavailable TORIBIO, NEO MD Unavailable Unavailable [...] Unavailable TORIBIO, NEO MD Unavailable Unavailable TORIBIO, ENO MD Unavailable Unavailable TORIBIO, NOE MD Unavailable Unavailable TORIBIO, NEO MD Unavailable [...] Unavailable TORIBIO, NEO MD Unavailable Unavailable TORIBIO, NOE MD Unavailable Unavailable TORIBIO, NEO MD Unavailable [...] Unavailable Unavailable TORIBIO, NEO MD Unavailable Unavailable Petrancosta, Bleckley Regina PA-C Unavailable Unavailabl e Petrancosta, Bleckley Regina PA-C Unavailable Unavailabl e Petrancosta, Bleckley Regina PA-C Unavailable Unavailabl e Petrancosta, Bleckley Regina PA-C Unavailable Unavailabl e Petrancosta, Bleckley Regina PA-C Unavailable Unavailabl e Petrancosta, Bleckley Regina PA-C Unavailable Unavailabl e Petrancosta, Bleckley Regina PA-C Unavailable Unavailabl e Petrancosta, Bleckley Regina PA-C Unavailable Unavailabl e Petrancosta, Bleckley Regina PA-C Unavailable Unavailabl e Petrancosta, Bleckley Regina PA-C Unavailable Unavailabl e Petrancosta, Bleckley Regina PA-C Unavailable Unavailabl e Petrancosta, Bleckley Regina PA-C Unavailable Unavailabl e Petrancosta, Bleckley Regina PA-C Unavailable Unavailabl e Petrancosta, Bleckley Regina PA-C Unavailable Unavailabl e Petrancosta, Bleckley Regina PA-C Unavailable Unavailabl e Petrancosta, Bleckley Regina PA-C Unavailable Unavailabl e Petrancosta, Bleckley Regina PA-C Unavailable Unavailabl e Petrancosta, Bleckley Regina PA-C Unavailable Unavailabl e Petrancosta, Bleckley Regina PA-C Unavailable Unavailabl e Petrancosta, Bleckley Regina PA-C Unavailable Unavailabl e Petrancosta, Bleckley Regina PA-C Unavailable Unavailabl e Petrancosta, Bleckley Regina PA-C Unavailable Unavailabl e Petrancosta, Bleckley Regina PA-C Unavailable Unavailabl e SINDI HARGROVE MD Unavailable Unavailable BEENA, SINDI FERRERA Unavailable [...] is protected by Article 27-F of the [facility] Public Health law. If you continue you may have access to information: Regarding HIV / AIDS; Provided by facilities licensed or operated by the [facility] Office of Mental Health; or Provided by the [facility] Office for People With Developmental Disabilities. If such information is present, then the following [facility] mandated warning applies: This information has [...] law may result in a fine or custodial sentence or both. A general authorization for the release of medical or other information is NOT sufficient authorization for further disc losure. Allergies and Adverse Reactions Type Description Substance Reaction Status Data Source(s ) Drug allergy Amitriptyline HCl Amitriptyline Hives Active eC W1 ([facility]) Drug allergy Percocet acetaminophen / oxycodone Hives Active eCW1 ([facility]) cats cats cats Eyes water Active eCW1 ([facility]) Propensity to adverse reactions OXYCODONE-ACETAMINOPHEN Oxycodon e-Acetaminophen Active [facility] cats cats cats Eyes water Active eCW1 ([facility]) cats cats cats Eyes water Active eCW1 ([facility]) Family History Family Member Name Family Member Gender Family Member Status Date o f Status Description Data Source(s) Unknown Male Problem MEDENT ([facility]) Unknown Female Problem MEDENT ([facility]) Unknown Unknown Problem MEDENT ([facility]) Unknown Female Problem MEDENT ([facility]) Encounters Encounter Providers Location Date Indications Data Source(s ) Outpatient Attender: Regina Gagnon PA-C Main Office 05/17/2020 12:30:00 PM EST MEDENT ([facility] Unknown [address] [facility] [address] 05/12/2020 12:00:00 AM EST eCW1 ([facility]) Outpatient [address] [facility] [address] 05/11/2020 12:00:00 AM EST eCW1 ([facility]) Outpatient Attender: Shaina JORGE [email or web address] 2020 12:00:00 AM EST - 05/03/2020 03:12:[address] [facility] Unknown [address] [facility] [address] 04/27/2020 12:00:00 AM EST eCW1 ([facility]) Outpatient [address] [facility] [address] 04/26/2020 12:00:00 AM EST eCW1 ([facility]) Unknown [address] [facility] [address] 04/26/2020 12:00:00 AM EST eCW1 ([facility]) Unknown [address] [facility] [place] [address] 04/21/2020 12:00:00 AM EST eCW1 ([facility]) Unknown [address] [facility] Y [address] 04/19/2020 12:00:00 AM EST eCW1 ([facility]) Unknown [address] [facility] Y [address] 04/11/2020 12:00:00 AM EST eCW1 ([facility]) Unknown [address] [facility] Y [address] 04/10/2020 12:00:00 AM EST eCW1 ([facility]) Outpatient Attender: Elinor Leung MD Main office - [place] 04/03/2020 11:00:00 AM EST MEDENT ([facility]monte) [place] [address] [address] 03/29/2020 12:00:00 AM EST eCW1 ([facility]) [place] [address] [address] 03/27/2020 12:00:00 AM EST eCW1 ([facility]) [place] [address] [address] 03/13/2020 12:00:00 AM EST eCW1 ([facility]) Unknown [address] [facility] [place] [address] 03/10/2020 12:00:00 AM EST eCW1 ([facility]) [place] [address] [address] 02/28/2020 12:00:00 AM EST eCW1 ([facility]) [place] [address] [address] 02/18/2020 12:00:00 AM EST eCW1 ([facility]) [place] [address] [address] 01/27/2020 12:00:00 AM EDT eCW1 ([facility]) [place] [address] [address] 01/19/2020 12:00:00 AM EDT eCW1 ([facility]) [place] [address] [address] 01/12/2020 12:00:00 AM EDT eCW1 ([facility]) [facility] [address] [facility] [address] 11/25/2019 12:00:00 AM EDT eCW1 ([facility]) [place] [address] [address] 10/20/2019 12:00:00 AM EDT eCW1 ([facility]) [place] [address] [address] 09/20/2019 12:00:00 AM EDT eCW1 ([facility]) Outpatient Attender: URIEL [facility] 09/14/2019 07:36:45 PM EDT [facility] [place] [address] [address] 09/14/2019 12:00:00 AM EDT eCW1 ([facility]) [place] [address] [address] 09/10/2019 12:00:00 AM EDT eCW1 ([facility]) Outpatient Attender: URIEL [facility] 09/04/2019 12:10:55 AM EDT [facility] [address] [address] 09/02/2019 12:00:00 AM EDT eCW1 ([facility]) [facility] [address] [address] 08/26/2019 12:00:00 AM EDT eCW1 ([facility]) [place]patient [address] [address] 08/25/2019 12:00:00 AM EDT eCW1 ([facility]) [facility] [address] [address] 08/18/2019 12:00:00 AM EDT eCW1 ([facility]) [facility] [address] [address] 08/17/2019 12:00:00 AM EDT eCW1 ([facility]) [place] [address] [address] 07/28/2019 12:00:00 AM EDT eCW1 ([facility]) [facility] [address] [address] 07/20/2019 12:00:00 AM EDT eCW1 ([facility]) [facility] [place] [address] [address] 07/01/2019 12:00:00 AM EDT eCW1 ([facility]) [facility] [place] [address] [address] 06/29/2019 12:00:00 AM EDT eCW1 ([facility]) [facility] [place] [address] [address] 06/29/2019 12:00:00 AM EDT eCW1 ([facility]) [facility] [address] [place] [address] 06/28/2019 12:00:00 AM EDT [facility]CW1 [facility]) Outpatient 06/02/2019 05:33:00 AM EST [facility] [place] [address] [address] 05/27/2019 12:00:00 AM EST eCW1 ([facility]) [facility] [place] [address] [address] 05/25/2019 12:00:00 AM EST eCW1 ([facility]) Outpatient 05/20/2019 12:44:00 PM EST [facility] [place] [address] [address] 05/13/2019 12:00:00 AM EST eCW1 ([facility]) Outpatient Attender: SINDI HARGROVE MD [email or web address] 05/05/2019 12:00:00 AM EST [facility] Outpatient Attender: Karthik JONES [id number] 05/04/2019 12 :00:00 AM EST Other fracture of right lower leg, subsequent encounter for closed fracture with routine healing [facility] Other fracture of right lower leg, subse quent encounter for closed fracture with routine healing Outpatient Referrer: Karthik JONES 05/04/2019 12 :00:00 AM EST Other fracture of right lower leg, subsequent encounter for closed fracture with routine healing [facility] Other fracture of right lower leg, subse quent encounter for closed fracture with routine healing Outpatient Attender: [email or web address] [facility] 04/30/2019 02:19:00 PM EST [facility] [address] [place] [phone] 04/30/2019 12:00:00 AM EST eCW1 ([facility]) [facility] [address] [place] [phone] 04/28/2019 12:00:00 AM EST eCW1 ([facility]) [facility] [address] [place] [phone] 04/15/2019 12:00:00 AM EST eCW1 ([facility]) [facility] [address] [place] [phone] 04/15/2019 12:00:00 AM EST eCW1 ([facility]) [facility] [address] [place] [phone] 04/14/2019 12:00:00 AM EST eCW1 ([facility]) [facility] [address] [place] [phone] 04/02/2019 12:00:00 AM EST eCW1 ([facility]) Outpatient Attender: NEO ROONEY MD [id number] 03/23/2019 12:00:0 0 AM EST Other fracture of right lower leg, subsequent encounter for closed fracture with routine healing [facility] Other fracture of right lower leg, subse quent encounter for closed fracture with routine healing Medications Medication Brand Name Start Date Product Form Dose Route Admi nistrative Instructions Pharmacy Instructions Status Indications Reaction Description Data Source(s) 5 mg 05/24/2020 12:00:00 AM EST capsule 30 TAKE 1 CAPSULE EVERY 6 HOURS NEEDED ANKLE PAIN AVOID DAILY USE MAXIMUM DAILY DOSE = 4 TAKE 1 CAPSULE EVERY 6 HOURS NEEDED ANKLE PAIN AVOID DAILY USE MAXIMUM DAILY DOSE = 4 SOLD: 05/24/2020 [facility] doxycycline hyclate 100 MG Oral Capsule DOXYCYCLINE HYCLATE 05/01/2020 12:00:00 AM EST capsule 14 TAKE ONE CAPSULE BY MOUTH TW ICE A DAY FOR 7 DAYS TAKE ONE CAPSULE BY MOUTH TWICE A DAY FOR 7 DAYS SOLD: 05/02/2020 [facility] doxycycline hyclate 100 MG Oral Capsule Doxycycline Hy clate 100 MG Doxycycline Hyclate 100 MG 05/01/2020 12:00:00 AM EST 1.0 {capsule} suspended Doxycycline Hyclate 100 MG eCW1 ([facility]) doxycycline hyclate 100 MG Oral Capsule Doxycycline Hy clate 100 MG Doxycycline Hyclate 100 MG 05/01/2020 12:00:00 AM EST 1.0 {capsule} active Doxycycline Hyclate 100 MG eCW1 ([facility]) topiramate 50 MG Oral Tablet topiramate (TOPAMAX) 50 M G tablet topiramate (TOPAMAX) 50 MG tablet 05/01/2020 12:00:00 AM EST active [facility] doxycycline hyclate 100 MG Oral Capsule Doxycycline Hy clate 100 MG Doxycycline Hyclate 100 MG 05/01/2020 12:00:00 AM EST 1.0 {capsule} active Doxycycline Hyclate 100 MG eCW1 ([facility]) doxycycline hyclate 100 MG Oral Capsule Doxycycline Hy clate 100 MG Doxycycline Hyclate 100 MG 05/01/2020 12:00:00 AM EST 1.0 {capsule} suspended Doxycycline Hyclate 100 MG eCW1 ([facility]) Sumatriptan 100 MG Oral Tablet SUMAtriptan (IMITREX) 1 00 MG tablet SUMAtriptan (IMITREX) 100 MG tablet 04/22/2020 12:00:00 AM EST active TAKE 1/2 TO 1 TABLET BY MOUTH AT ONSET OF HEADACHE MAY REPEAT ONE AFTER 2 HOURS. MAXIMUM DAILY DOSE TWO TABLETS [facility] Oxycodone Hydrochloride 5 MG Oral Tablet Oxycodone HCl 5 MG Oxycodone HCl 5 MG 04/21/2020 12:00:00 AM EST active Oxycodone HCl 5 MG eCW1 ([facility]) Oxycodone Hydrochloride 5 MG Oral Tablet Oxycodone HCl 5 MG Oxycodone HCl 5 MG 04/21/2020 12:00:00 AM EST active Oxycodone HCl 5 MG eCW1 ([facility]) Oxycodone Hydrochloride 5 MG Oral Tablet Oxycodone HCl 5 MG Oxycodone HCl 5 MG 04/21/2020 12:00:00 AM EST active Oxycodone HCl 5 MG eCW1 ([facility]) Oxycodone Hydrochloride 5 MG Oral Tablet Oxycodone HCl 5 MG Oxycodone HCl 5 MG 04/21/2020 12:00:00 AM EST active Oxycodone HCl 5 MG eCW1 ([facility]) Oxycodone Hydrochloride 5 MG Oral Tablet Oxycodone HCl 5 MG Oxycodone HCl 5 MG 04/21/2020 12:00:00 AM EST active Oxycodone HCl 5 MG eCW1 ([facility]) 5 mg 04/21/2020 12:00:00 AM EST tablet 30 TAKE 1 TABLET BY MOUTH EVERY 6 HOURS NEEDED MAXIMUM DAILY DOSE = 2 TABLETS TAKE 1 TABLET BY MOUTH EVERY 6 HOURS NEEDED MAXIMUM DAILY DOSE = 2 TABLETS SOLD: 04/24/2020 [facility] Oxycodone Hydrochloride 5 MG Oral Tablet Oxycodone HCl 5 MG Oxycodone HCl 5 MG 04/21/2020 12:00:00 AM EST active Oxycodone HCl 5 MG eCW1 ([facility]) Alprazolam 0.5 MG Oral Tablet ALPRAZolam (XANAX) 0.5 M G tablet ALPRAZolam (XANAX) 0.5 MG tablet 04/04/2020 12:00:00 AM EST active TAKE ONE TABLET BY MOUTH 30 MINUTES BEFORE MRI SCAN MAY REPEAT ONCE NEEDED. MAXIMUM DAILY DOSE TWO TABLETS [facility] Sumatriptan 100 MG Oral Tablet Sumatriptan Succinate 04/03/2020 12:00:00 AM EST ORAL active MEDENT ( [facility]) Alprazolam 0.5 MG Oral Tablet Alprazolam 04/03/2020 12:00:00 AM EST ORAL active MEDENT ([facility]) topiramate 50 MG Oral Tablet Topiramate 04/03/2020 12:00:00 AM EST active MEDENT ([facility]) Metoprolol Tartrate 25 MG Oral Tablet me toprolol tartrate (LOPRESSOR) 25 MG tablet metoprolol tartrate (LOPRESSOR) 25 MG tablet 03/30/2020 12:0 0:00 AM EST 25 mg Oral active Take 25 mg by mo uth 2 (two) times a day [facility] 25 mg 03/30/2020 12:00:00 AM EST tablet 60 TAKE ONE TABLET BY MOUTH TWICE A DAY WITH FOOD TAKE ONE TABLET BY MOUTH TWICE A DAY WITH FOOD SOLD: 04/01/2020 [facility] Metoprolol Tartrate 25 MG Oral Tablet Metoprolol Tartrate 25 MG 03/29/2020 12:00:00 AM EST 1.0 {tablet_with_food} active Metoprolol Tartrate 25 MG eCW1 ([facility]) Metoprolol Tartrate 25 MG Oral Tablet Metoprolol Tartrate 25 MG 03/29/2020 12:00:00 AM EST 1.0 {tablet_with_food} active Metoprolol Tartrate 25 MG eCW1 ([facility]) Metoprolol Tartrate 25 MG Oral Tablet Metoprolol Tartrate 25 MG 03/29/2020 12:00:00 AM EST 1.0 {tablet_with_food} active Metoprolol Tartrate 25 MG eCW1 ([facility]) Metoprolol Tartrate 25 MG Oral Tablet Metoprolol Tartrate 25 MG 03/29/2020 12:00:00 AM EST 1.0 {tablet_with_food} active Metoprolol Tartrate 25 MG eCW1 ([facility]) Metoprolol Tartrate 25 MG Oral Tablet Metoprolol Tartrate 25 MG 03/29/2020 12:00:00 AM EST 1.0 {tablet_with_food} active Metoprolol Tartrate 25 MG eCW1 ([facility]) Metoprolol Tartrate 25 MG Oral Tablet Metoprolol Tartrate 25 MG 03/29/2020 12:00:00 AM EST 1.0 {tablet_with_food} active Metoprolol Tartrate 25 MG eCW1 ([facility]) Metoprolol Tartrate 25 MG Oral Tablet Metoprolol Tartrate 25 MG 03/29/2020 12:00:00 AM EST 1.0 {tablet_with_food} active Metoprolol Tartrate 25 MG eCW1 ([facility]) Metoprolol Tartrate 25 MG Oral Tablet Metoprolol Tartrate 25 MG 03/29/2020 12:00:00 AM EST 1.0 {tablet_with_food} active Metoprolol Tartrate 25 MG eCW1 ([facility]) Metoprolol Tartrate 25 MG Oral Tablet Metoprolol Tartrate 25 MG 03/29/2020 12:00:00 AM EST 1.0 {tablet_with_food} active Metoprolol Tartrate 25 MG eCW1 ([facility]) Metoprolol Tartrate 25 MG Oral Tablet Metoprolol Tartrate 25 MG 03/29/2020 12:00:00 AM EST 1.0 {tablet_with_food} active Metoprolol Tartrate 25 MG eCW1 ([facility]) Oxycodone Hydrochloride 5 MG Oral Tablet Oxycodone HCl 5 MG Oxycodone HCl 5 MG 03/27/2020 12:00:00 AM EST active Oxycodone HCl 5 MG eCW1 ([facility]) 5 mg 03/27/2020 12:00:00 AM EST tablet [...] EST active Oxycodone HCl 5 MG eCW1 ([facility]) Oxycodone Hydrochloride 5 MG Oral Tablet Oxycodone HCl 5 MG Oxycodone HCl 5 MG 03/27/2020 12:00:00 AM EST active Oxycodone HCl 5 MG eCW1 ([facility]) Oxycodone Hydrochloride 5 MG Oral Tablet Oxycodone HCl 5 MG Oxycodone HCl 5 MG 03/27/2020 12:00:00 AM EST active Oxycodone HCl 5 MG eCW1 ([facility]) Oxycodone Hydrochloride 5 MG Oral Tablet Oxycodone HCl 5 MG Oxycodone HCl 5 MG 03/27/2020 12:00:00 AM EST active Oxycodone HCl 5 MG eCW1 ([facility]) Verapamil hydrochloride 80 MG Oral Tablet verapamil (C BRANDON) 80 MG tablet verapamil (CALAN) 80 MG tablet 03/27/2020 12:00:00 AM EST 80 mg Or al active Take 80 mg by mouth 3 (three) ti mes a day [facility] Prednisone 20 MG Oral Tablet PredniSONE 20 MG PredniSONE 20 MG 03/13/2020 12:00:00 AM EST 2.0 {tablets} active P redniSONE 20 MG eCW1 ([facility]) 20 mg 03/13/2020 12:00:00 AM EST tablet 4 TAKE TWO TABLETS BY MOUTH EVERY DAY TAKE TWO TABLETS BY MOUTH EVERY DAY SOLD: 03/17/2020 [facility] Prednisone 20 MG Oral Tablet PredniSONE 20 MG PredniSONE 20 MG 03/13/2020 12:00:00 AM EST 2.0 {tablets} suspended PredniSONE 20 MG eCW1 ([facility]) Prednisone 20 MG Oral Tablet PredniSONE 20 MG PredniSONE 20 MG 03/13/2020 12:00:00 AM EST 2.0 {tablets} suspended PredniSONE 20 MG eCW1 ([facility]) Prednisone 20 MG Oral Tablet PredniSONE 20 MG PredniSONE 20 MG 03/13/2020 12:00:00 AM EST 2.0 {tablets} suspended PredniSONE 20 MG eCW1 ([facility]) Prednisone 20 MG Oral Tablet PredniSONE 20 MG PredniSONE 20 MG 03/13/2020 12:00:00 AM EST 2.0 {tablets} suspended PredniSONE 20 MG eCW1 ([facility]) Prednisone 20 MG Oral Tablet PredniSONE 20 MG PredniSONE 20 MG 03/13/2020 12:00:00 AM EST 2.0 {tablets} suspended PredniSONE 20 MG eCW1 ([facility]) Prednisone 20 MG Oral Tablet PredniSONE 20 MG PredniSONE 20 MG 03/13/2020 12:00:00 AM EST 2.0 {tablets} suspended PredniSONE 20 MG eCW1 ([facility]) Prednisone 20 MG Oral Tablet PredniSONE 20 MG PredniSONE 20 MG 03/13/2020 12:00:00 AM EST 2.0 {tablets} suspended PredniSONE 20 MG eCW1 ([facility]) Prednisone 20 MG Oral Tablet PredniSONE 20 MG PredniSONE 20 MG 03/13/2020 12:00:00 AM EST 2.0 {tablets} suspended PredniSONE 20 MG eCW1 ([facility]) Prednisone 20 MG Oral Tablet PredniSONE 20 MG PredniSONE 20 MG 03/13/2020 12:00:00 AM EST 2.0 {tablets} suspended PredniSONE 20 MG eCW1 ([facility]) Prednisone 20 MG Oral Tablet PredniSONE 20 MG PredniSONE 20 MG 03/13/2020 12:00:00 AM EST 2.0 {tablets} suspended PredniSONE 20 MG eCW1 ([facility]) Prednisone 20 MG Oral Tablet PredniSONE 20 MG PredniSONE 20 MG 03/13/2020 12:00:00 AM EST 2.0 {tablets} active P redniSONE 20 MG eCW1 ([facility]) atorvastatin 40 MG Oral Tablet ATORVASTATIN CALCIUM 03/11/2020 1 2:00:00 AM EST tablet 90 TAKE ONE TABLET BY MOUTH EVERY D AY TAKE ONE TABLET BY MOUTH EVERY DAY SOLD: 03/13/2020 [facility] Furosemide 20 MG Oral Tablet furosemide (LASIX) 20 MG tablet furosemide (LASIX) 20 MG tablet 03/11/2020 12:00:00 AM EST active Edema, unspecified typeBenign essential hypertension TAKE ONE TABLET BY MOUTH E [facility] Edema, unspecified type Benign essential hypertension pantoprazole 40 MG Delayed Release Oral Tablet PANTOPRAZOLE SODIUM 03/11/2020 12:00:00 AM EST tablet,delayed release (DR/EC) 180 T BRYAN ONE TABLET BY MOUTH TWICE A DAY TAKE ONE TABLET BY MOUTH TWICE A DAY SOLD: 03/13/2020 [facility] 20 mg 03/08/2020 12:00:00 AM EST tablet 15 TAKE THREE TABLETS BY MOUTH EVERY DAY TAKE THREE TABLETS BY MOUTH EVERY DAY SOLD: 03/08/2020 [facility] 20 mg 03/08/2020 12:00:00 AM EST tablet 90 TAKE ONE TABLET BY MOUTH EVERY DAY TAKE ONE TABLET BY MOUTH EVERY DAY SOLD: 03/13/2020 [facility] Oxycodone Hydrochloride 5 MG Oral Tablet Oxycodone HCl 5 MG Oxycodone HCl 5 MG 02/28/2020 12:00:00 AM EST active Oxycodone HCl 5 MG eCW1 ([facility]) Oxycodone Hydrochloride 5 MG Oral Tablet Oxycodone HCl 5 MG Oxycodone HCl 5 MG 02/28/2020 12:00:00 AM EST active Oxycodone HCl 5 MG eCW1 ([facility]) Oxycodone Hydrochloride 5 MG Oral Tablet Oxycodone HCl 5 MG Oxycodone HCl 5 MG 02/28/2020 12:00:00 AM EST active Oxycodone HCl 5 MG eCW1 ([facility]) 5 mg 02/28/2020 12:00:00 AM EST tablet [...] EDT active Oxycodone HCl 5 MG eCW1 ([facility]) Oxycodone Hydrochloride 5 MG Oral Tablet Oxycodone HCl 5 MG Oxycodone HCl 5 MG 01/27/2020 12:00:00 AM EDT active Oxycodone HCl 5 MG eCW1 ([facility]) Oxycodone Hydrochloride 5 MG Oral Tablet Oxycodone HCl 5 MG Oxycodone HCl 5 MG 01/27/2020 12:00:00 AM EDT active Oxycodone HCl 5 MG eCW1 ([facility]) Oxycodone Hydrochloride 5 MG Oral Tablet Oxycodone HCl 5 MG Oxycodone HCl 5 MG 01/27/2020 12:00:00 AM EDT active Oxycodone HCl 5 MG eCW1 ([facility]) 80 mg 01/20/2020 12:00:00 AM EDT tablet [...] activ e Verapamil HCl 80 MG eCW1 ([facility]) Verapamil hydrochloride 80 MG Oral Tablet Verapamil HC l 80 MG Verapamil HCl 80 MG 01/19/2020 12:00:00 AM EDT 1.0 {tablet} activ e Verapamil HCl 80 MG eCW1 ([facility]) Verapamil hydrochloride 80 MG Oral Tablet Verapamil HC l 80 MG Verapamil HCl 80 MG 01/19/2020 12:00:00 AM EDT 1.0 {tablet} activ e Verapamil HCl 80 MG eCW1 ([facility]) Verapamil hydrochloride 80 MG Oral Tablet Verapamil HC l 80 MG Verapamil HCl 80 MG 01/19/2020 12:00:00 AM EDT 1.0 {tablet} activ e Verapamil HCl 80 MG eCW1 ([facility]) Verapamil hydrochloride 80 MG Oral Tablet Verapamil HC l 80 MG Verapamil HCl 80 MG 01/19/2020 12:00:00 AM EDT 1.0 {tablet} activ e Verapamil HCl 80 MG eCW1 ([facility]) Verapamil hydrochloride 80 MG Oral Tablet Verapamil HC l 80 MG Verapamil HCl 80 MG 01/19/2020 12:00:00 AM EDT 1.0 {tablet} activ e Verapamil HCl 80 MG eCW1 ([facility]) Verapamil hydrochloride 80 MG Oral Tablet Verapamil HC l 80 MG Verapamil HCl 80 MG 01/19/2020 12:00:00 AM EDT 1.0 {tablet} activ e Verapamil HCl 80 MG eCW1 ([facility]) Verapamil hydrochloride 80 MG Oral Tablet Verapamil HC l 80 MG Verapamil HCl 80 MG 01/19/2020 12:00:00 AM EDT 1.0 {tablet} activ e Verapamil HCl 80 MG eCW1 ([facility]) 2 % 01/13/2020 12:00:00 AM EDT cream [...] IMUM DAILY DOSE = 2 SOLD: 12/31/2019 [facility] 2.5 mg /3 mL [...] EVERY 4 HOURS NEEDED SOLD: 12/30/2019 [facility] 750 mg 12/22/2019 12:00:00 AM EDT [...] FOOD FOR 7 DAYS SOLD: 12/17/2019 [facility] montelukast 10 MG Oral Tablet MONTELUKAST SODIUM 12/10/2019 12:0 0:00 AM EDT tablet 90 TAKE ONE TABLET BY MOUTH EVERY E VENING TAKE ONE TABLET BY MOUTH EVERY EVENING SOLD: 03/13/2020 [facility] montelukast 10 MG Oral Tablet MONTELUKAST SODIUM 12/10/2019 12:0 0:00 AM EDT tablet 90 TAKE ONE TABLET BY MOUTH EVERY E VENING TAKE ONE TABLET BY MOUTH EVERY EVENING SOLD: 12/13/2019 [facility] atorvastatin 40 MG Oral Tablet atorvastatin (LIPITOR) 40 MG tablet atorvastatin (LIPITOR) 40 MG tablet 12/08/2019 12:00:00 AM EDT 40 mg Oral active Take 40 mg by mouth daily [facility] 300 mg 12/07/2019 12:00:00 AM EDT capsule [...] EDT active Oxycodone HCl 5 MG eCW1 ([facility]) 5 mg 10/20/2019 12:00:00 AM EDT tablet 30 TAKE ONE TABLET BY MOUTH EVERY 6 HOURS NEEDED * MAXIMUM DAILY DOSE = 2 TAKE ONE TABLET BY MOUTH EVERY 6 HOURS NEEDED * MAXIMUM DAILY DOSE = 2 SOLD: 10/21/2019 [facility] Oxycodone Hydrochloride 5 MG Oral Tablet Oxycodone HCl 5 MG Oxycodone HCl 5 MG 10/20/2019 12:00:00 AM EDT active Oxycodone HCl 5 MG eCW1 ([facility]) Oxycodone Hydrochloride 5 MG Oral Tablet Oxycodone HCl 5 MG Oxycodone HCl 5 MG 09/20/2019 12:00:00 AM EDT active Oxycodone HCl 5 MG eCW1 ([facility]) 5 mg 09/20/2019 12:00:00 AM EDT tablet 30 TAKE 1 TABLET EVERY 6 HOURS NEEDED MAXIMUM DAILY DOSE = 2 TAKE 1 TABLET EVERY 6 HOURS NEEDED MA JENNIFERM DAILY DOSE = 2 SOLD: 09/21/2019 [facility] [...] TABLET BY MOUTH EVERY DAY SOLD: 12/13/2019 [facility] atorvastatin 40 MG Oral Tablet ATORVASTATIN CALCIUM 09/06/2019 1 2:00:00 AM EDT tablet 90 TAKE ONE TABLET BY MOUTH EVERY D AY TAKE ONE TABLET BY MOUTH EVERY DAY SOLD: 12/13/2019 [facility] Oxycodone Hydrochloride 5 MG Oral Tablet Oxycodone HCl 5 MG Oxycodone HCl 5 MG 08/19/2019 12:00:00 AM EDT active Oxycodone HCl 5 MG eCW1 ([facility]) Oxycodone Hydrochloride 5 MG Oral Tablet Oxycodone HCl 5 MG Oxycodone HCl 5 MG 08/19/2019 12:00:00 AM EDT active Oxycodone HCl 5 MG eCW1 ([facility]) 5 mg 08/19/2019 12:00:00 AM EDT tablet [...] EDT active Oxycodone HCl 5 MG eCW1 ([facility]) Oxycodone Hydrochloride 5 MG Oral Tablet Oxycodone HCl 5 MG Oxycodone HCl 5 MG 08/19/2019 12:00:00 AM EDT active 1 tablet as needed MDD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 Cholesterol 51 mg/dL [facility] ([facility] LDL Cholesterol 96 mg/dL [facility] ([facility] Non-HDL-C 125 mg/dL [facility] ([facility] Cholesterol Risk Ratio 3.450 [facility] ([facility] ID Date Data Source [id number] 05/18/2020 02:22:00 PM EST [facility] ([facility] Name Value Range Interpretation Code Description Data Lynette rce(s) Supporting Document(s) Hemoglobin A1c/Hemoglobin.total in Blood 5.8 % [facility] ([facility] <content>REFERENCE RANGES:</content><br/ ><content></content>
<content><=5.6% NORMAL</content>
<content>5.7-6.4% SUGGESTS IMPAIRED GLUCOSE METABOLISM/PREDIABETIC</content>
<content>>= 6.5% ABNORMAL</content>
<content></content> Estimated Average Glucose 120 mg/dL 60-110 [facility] ([facility] ID Date Data Source [id number] 04/21/2020 01:36:00 PM EST [facility] Name Value Range Interpretation Code Description Data Lynette rce(s) Supporting Document(s) SARS coronavirus 2 RNA Not Detected [facility] This lab was ordered by [facility] and reported by [facility]. ID Date Data Source [id number] 03/07/2020 09:33:00 PM EST [facility] Name Value Range Interpretation Code Description Data Lynette rce(s) Supporting Document(s) SARS coronavirus 2 RNA [facility] This lab was ordered by [facility] and reported by [facility]. ID Date Data Source Urinalysis, no micro 01/12/2020 05:25:12 AM EDT eCW1 ([facility]) Name Value Range Interpretation Code Description Data Lynette rce(s) Supporting Document(s) 5 pH eCW1 ([facility]) pH neg Leukocyte eCW1 ([facility]) Leukocyte neg Spec gravity eCW1 ([facility]) Spec gravity neg Ketones eCW1 ([facility]) Ketones neg Glucose eCW1 ([facility]) Glucose neg Nitrate eCW1 ([facility]) Nitrate trace Protein eCW1 ([facility]) Protein neg Urobili eCW1 ([facility]) Urobili neg Bilirubin eCW1 ([facility]) Bilirubin neg Blood eCW1 ([facility]) Blood yes Internal QC Acceptable (Y/N) e CW1 ([facility]) Internal QC Acceptable (Y/N) ID Date Data Source [id number] 05/27/2019 12:00:00 AM EST eCW1 ([facility]) Name Value Range Interpretation Code Description Data Lynette rce(s) Supporting Document(s) Microalbumin/Creatinine [Mass Ratio] in Urine 148.0 CREATININE, URINE eCW1 ([facility]) Albumin/Creatinine [Mass Ratio] in Urine 9.3 MALB URINE SIEMENS eCW1 ([facility]) Microalbumin/Creatinine [Ratio] in Urine 6.2 0.0-30.0 SHEILA/CREAT RATIO eCW1 ([facility]) ID Date Data Source [id number] 05/27/2019 12:00:00 AM EST eCW1 ([facility]) Name Value Range Interpretation Code Description Data Lynette rce(s) Supporting Document(s) Hemoglobin A1c/Hemoglobin.total in Blood 6.2 HEMOGLOBIN A1c eCW1 ([facility]) ID Date Data Source [id number] 05/05/2019 02:54:44 PM EST [facility] Name Value Range Interpretation Code Description Data Lynette rce(s) Supporting Document(s) Progress Note [facility] TIKMYv8sYvYHRrPm38/OFUyoETFtx4XeHLicLTm3XCfsBIZxO6EnDNP8mQ7bJEY5TBsSCqLbWnLmNRJ4 lbm [file] AgICAgICAgICAgICAgICAgICAgICAgICAgICAgICAg ICAgICAgICAgICAgICAgICAgICAgICAgICAgICAgICAgICAgICAgICAgICAgICAgICAgICAgICAgICAg ICAgICAgDQogICAgICAgICAgICAgICAgICAgICAgICAgICAgICAgICAgICAgICAgICAgICAgICAgICAg ICAgICAgICAgICAgICAgICAgICAgICAgICAgICAgIC AgICAgICAgICAgICAgICAgDQogICAgICAgICAgICAgICAgICAgICAgICAgICAgICAgICAgICAgICAgIC AgICAgICAgICAgICAgICAgICAgICAgICAgICAgICAgICAgICAgICAgICAgICAgICAgICAgICAgICAgDQ ogICAgICAgICAgICAgICAgICAgICAgICAgICAgICAg ICAgICAgICAgICAgICAgICAgICAgICAgICAgICAgICAgICAgICAgICAgICAgICAgICAgICAgICAgICAg ICAgICAgICAgDQogICAgICAgICAgICAgICAgICAgICAgICAgICAgICAgICAgICAgICAgICAgICAgICAg ICAgICAgICAgICAgICAgICAgICAgICAgICAgICAgIC AgICAgICAgICAgICAgICAgICAgDQogICAgICAgICAgICAgICAgICAgICAgICAgICAgICAgICAgICAgIC AgICAgICAgICAgICAgICAgICAgICAgICAgICAgICAgICAgICAgICAgICAgICAgICAgICAgICAgICAgIC AgDQogICAgICAgICAgICAgICAgICAgICAgICAgICAg ICAgICAgICAgICAgICAgICAgICAgICAgICAgICAgICAgICAgICAgICAgICAgICAgICAgICAgICAgICAg ICAgICAgICAgICAgDQogICAgICAgICAgICAgICAgICAgICAgICAgICAgICAgICAgICAgICAgICAgICAg ICAgICAgICAgICAgICAgICAgICAgICAgICAgICAgIC AgICAgICAgICAgICAgICAgICAgICAgDQogICAgICAgICAgICAgICAgICAgICAgICAgICAgICAgICAgIC AgICAgICAgICAgICAgICAgICAgICAgICAgICAgICAgICAgICAgICAgICAgICAgICAgICAgICAgICAgIC AgICAgDQogICAgICAgICAgICAgICAgICAgICAgICAg ICAgICAgICAgICAgICAgICAgICAgICAgICAgICAgICAgICAgICAgICAgICAgICAgICAgICAgICAgICAg IGQrSAVcZBIfMJKpOOJuIKu4C5eaRAYmRKJeLL4qFBa7Qd5+WKwJHrEtZMF2dcCghK8FAP2nl9YiUJhv VTPdg5IbQOn4YE2RSBIeEHjrBK5YJLjwdn3STUSsOI DrdTCHp6fvZlOoHTC8DVSaQlgeMD6QCIOpY1ltbvJcDNFzMQIELCfpPHBPMT1TUiVnX5OjwV40PFEXPh 4+FLawuaUcSplEQqB1NAOar6HcOOm2JW9CFXHvQvzef3FrOtcmMKIVGOmvXH4GHCZ6AIU8NTFuLa8IDS LpQ330bdJmII6NZn0MFlHuSX3bry1QUoadMDBqTurO Ers9OZtuLD0FuQWdQTiYop5ctwReefACh0JlrnRtxIAGQR1zKAwaEOC0zHUqSgowj3lgdudbHUDtGKXb LM3uXB2wYRTlEEEoCaWrKFZITI2LMEQsILAzkZBqDGFwCUAWFC4GVLpvTQE1YADgczKjaBNfKPcjCC1D YXJlbnQgMzcgMCBSDQo+Cm7JMJ4tm7ZqJVtxSBWkRC 3ddn9XSPhNVjAnM0J8aHDkU8A3NRphUy9TFHMaACLuVvIxCKZLMYecHK8XJK0uwfA2ET6IkJQzVFMlRC KxjWWpLFy3M16wuLIpZRvtVA9BHBF+Olivia+Bb2SXXHcRLRsFAZxFsPsDPSRQqJcP4FnB0IZd7VcJ4MsQF 37qAgnotIdBDtkYY2MVF5oTXLjDNXXFU0DwONkaL8l moMvTiKvKQUDYhVzQ85kdQMaYNPuTVN4IQHtWg1GBJSmS5CzdkGqlKvsmhEiVYEoADQEDA9IKMyzjqHg uAQhaSrpAI66mAitCE1MTs0VQnRbNZ5lld5UtTKjZx2TUOD1VM4QLJNpYCNuFQYiXGD0HABtDeWbUVym FAGaRDVqDQJ2FRPoEUClJT1TVrDaTEHqXbp3TSRnET YjSMRsbq6ZAPIiJEQpVKLhFIBbGXLkVWEoTOprKQVxRKSdPAR2HRHdETNeHF8JMoGjPMNcMYY6OBXbEL AsASWahj7DBAGwZJZnMKHbLdKtHQWnKXRyXPtjQHFwESJ5UMF9KKAqKFJjHX6VGhYdOGFhKRDbUIpaOY HmHTKcpj8RIZIyMBQzAoCfXnHyLMQcGQUkSUjpQQAp XCS1MXSpKCUdIRTvKZ8TKnAgBHPfQCo8BZRgMLPnGBJlqf6AHWDoBSDgDSG4OdWfXNWaPFOaNJojMHIp CTJ7PpG5BHUgUGMwQL7ZSzTqJBFmIJt1OcXbQBBnFRNqrk5DSMZkLERrCAM6MPGvOOUbGJQxVRytQCFq WGSvNjO2GQBuNQTiWG5CIjRiZWNpTaV4DRBpASWsUL Gcqz5DLXRnNPAgMMY5KyXyZGGlUMJxSHzkCPKrLFLaPRo7DSQoQIChIC3XYsUhNTSdPoElGOYoTWDlHR Pkkt3ZOXPoZOGfAnEuCPQaZPWcQIDpOUjfWEWhECVpVWM4KGVjPESeIV2VUtLgNBKzDpN8BwZgYYKsLL Gyxr5LRDMlXLBpGuN9MyBmDOTiLIDlGIabMWVkJVWh CPH5DVKmYCOkHL0MNmPiEKRhDda1UiMuYWMtWHFrxa4IIRSfTCTfJKs3DdUbBVMqXNJlVTxwYFWrYWX2 MwU4YIIeZRDrDU0UGjFsPYLgRrw0MQLfNRSjQBCyvb9OYUNuJPOaJTQsUgKuBPCvEKZnBKhgPXBqJSI7 DEP5SUOlPORdFS4GOwYeIVYmGsKlMHsfVVHrCFTcei 6EKPHnFHXzNDCgHNCdOXLqJUEsGUvzKXFlZXXxBQOxJIHhVIHpLV8HZyTiIUJbCoa7XrZkHTBgDUOdex 5PABYqEZOxNDC4KRPpVQEdLRSvDRgfVAZaQQB7VxBqQFZuGVNdDX6AHqBgQQFnOqd0NNCbOXLuCFYavc 1ZGHQnDHEbCNreIGMaPLWhDODoGVi8lbUxfDRySMx1 SO1AQ8MosrElFGFXIa1Xt728VPB9BSEpQs5BW5vvSj5xATTbYSXBCx4UNIt6QZdaL2EjZxS8UNH7KfPj ZcxcMvW5V3IrFtUiI5UsTVV+WKqeDUJvFDRzVoTkRjtmHxWvTqQdSjOaRSSuFPUvWWZfEy3qNHKQVg1+ GLonoMIzcVzjVKELRfPxFPdxOZjfZEPXBt5H ID Date Data Source [id number] 05/05/2019 07:19:27 AM EST [facility] XR ANKLE 3 OR MORE VIEWS [id number] RESU LTInterpreted by:Santos Zazueta ankleINDICATION: FractureFINDINGS: Comparison is made with [...] Code Description Data Lynette rce(s) Supporting Document(s) Procedure Social History Code Duration Value Status Description Data Source(s ) Smoking 05/17/2020 12:00:00 AM EST Patient has never smoked co mpleted Patient has never smoked [facility] ([facility] Smoking 05/11/2020 12:00:00 AM EST Never Smoker completed Never S moker eCW1 ([facility]) Smoking 05/11/2020 12:00:00 AM EST Never Smoker completed Never S moker eCW1 ([facility]) Alcohol intake 05/03/2020 12:00:00 AM EST No completed [facility] Smoking 05/03/2020 12:00:00 AM EST Never smoker completed Never s moker [facility] Smoking 04/26/2020 12:00:00 AM EST Never Smoker completed Never S moker eCW1 ([facility]) Smoking 04/26/2020 12:00:00 AM EST Never Smoker completed Never S moker eCW1 ([facility]) Smoking 04/26/2020 12:00:00 AM EST Never Smoker completed Never S moker eCW1 ([facility]) Smoking 03/29/2020 12:00:00 AM EST Never Smoker completed Never S moker eCW1 ([facility]) Smoking 03/29/2020 12:00:00 AM EST Never Smoker completed Never S moker eCW1 ([facility]) Smoking 03/29/2020 12:00:00 AM EST Never Smoker completed Never S moker eCW1 ([facility]) Smoking 03/29/2020 12:00:00 AM EST Never Smoker completed Never S moker eCW1 ([facility]) Smoking 03/29/2020 12:00:00 AM EST Never Smoker completed Never S moker eCW1 ([facility]) Smoking 02/18/2020 12:00:00 AM EST Never Smoker completed Never S moker eCW1 ([facility]) Smoking 02/18/2020 12:00:00 AM EST Never Smoker completed Never S moker eCW1 ([facility]) Smoking 02/18/2020 12:00:00 AM EST Never Smoker completed Never S moker eCW1 ([facility]) Smoking 02/18/2020 12:00:00 AM EST Never Smoker completed Never S moker eCW1 ([facility]) Smoking 02/18/2020 12:00:00 AM EST Never Smoker completed Never S moker eCW1 ([facility]) Smoking 01/19/2020 12:00:00 AM EDT Never Smoker completed Never S moker eCW1 ([facility]) Smoking 01/19/2020 12:00:00 AM EDT Never Smoker completed Never S moker eCW1 ([facility]) Smoking 01/19/2020 12:00:00 AM EDT Never Smoker completed Never S moker eCW1 ([facility]) Smoking 08/25/2019 12:00:00 AM EDT Never Smoker completed Never S moker eCW1 ([facility]) Smoking 08/25/2019 12:00:00 AM EDT Never Smoker completed Never S moker eCW1 ([facility]) Smoking 08/25/2019 12:00:00 AM EDT Never Smoker completed Never S moker eCW1 ([facility]) Smoking 08/25/2019 12:00:00 AM EDT Never Smoker completed Never S moker eCW1 ([facility]) Smoking 08/25/2019 12:00:00 AM EDT Never Smoker completed Never S moker eCW1 ([facility]) Smoking 08/25/2019 12:00:00 AM EDT Never Smoker completed Never S moker eCW1 ([facility]) Alcohol intake 05/04/2019 12:00:00 AM EST Ex-drinker (finding) comp leted Ex- drinker (finding) [facility] Smoking 05/04/2019 12:00:00 AM EST Never smoker completed Never s [facility] Vital Signs ID Date Data Source [id number] Name Value Range Interpretation Code Description Data Source(s) Body mass index (BMI) [Ratio] 44.1 kg/m2 44.1 k g/m2 [facility] Hazel body weight 105 [lb_av] 105 [lb_av] MEDEN T ([facility] Oxygen saturation in Arterial blood by Pulse oximetry 98 % 98 % [facility] Body weight 237.50 [lb_av] 237.50 [lb_av] MED[facility] T ([facility] Body height 61.50 [in_i] 61.50 [in_i] [facility] ([facility] 5'1.50" Respiratory rate 18 /min 18 /min [facility] ( [facility] Body temperature 97.4 [degF] 97.4 [degF] [facility] ([facility] Heart rate 83 /min 83 /min [facility] Diastolic blood pressure 84 mm[Hg] 84 mm[Hg] [facility] ([facility] Systolic blood pressure 139 mm[Hg] 139 mm[Hg] M EDENT ([facility] Diastolic blood pressure 80 mm[Hg] 80 mm[Hg] eCW1 ([facility]) Systolic blood pressure 132 mm[Hg] 132 mm[Hg] e CW1 ([facility]) Body temperature 97.3 [degF] 97.3 [degF] eCW1 ( [facility]) Respiratory rate 20 /min 20 /min eCW1 ([facility]) Heart rate 90 /min 90 /min eCW1 ([facility]) Body mass index (BMI) [Ratio] 43.71 kg/m2 43.71 kg/m2 eCW1 ([facility]) Body height 62 [in_i] 62 [in_i] eCW1 ([facility]) Body weight [lb_av] eCW1 ([facility]) Diastolic blood pressure 74 mm[Hg] 74 mm[Hg] [facility] Systolic blood pressure 114 mm[Hg] 114 mm[Hg] [facility] Oxygen saturation in Arterial blood by Pulse oximetry 98 % 98 % [facility] Body mass index (BMI) [Ratio] 39.27 kg/m2 39.27 kg/m2 [facility] Body weight 107.049 kg 107.049 kg [facility] Body height 165.1 cm 165.1 cm [facility] Heart rate 89 /min 89 /min [facility] Diastolic blood pressure 86 mm[Hg] 86 mm[Hg] eCW1 ([facility]) Systolic blood pressure 136 mm[Hg] 136 mm[Hg] e CW1 ([facility]) Body temperature 97.7 [degF] 97.7 [degF] eCW1 ( [facility]) Respiratory rate 20 /min 20 /min eCW1 ([facility]) Heart rate 106 /min 106 /min eCW1 ([facility]) Body mass index (BMI) [Ratio] 43.71 kg/m2 43.71 kg/m2 eCW1 ([facility]) Body height 62 [in_i] 62 [in_i] eCW1 ([facility]) Body weight 239 [lb_av] 239 [lb_av] eCW1 ([facility]) [place] body weight 125 [lb_av] 125 [lb_av] MEDEN T ([facility], ) Body mass index (BMI) [Ratio] 39.9 kg/m2 39.9 k g/m2 MEDENT ([facility], ) Body weight 240.00 [lb_av] 240.00 [lb_av] MEDEN T ([facility], ) Body height 65 [in_i] 65 [in_i] MEDENT ([facility], ) 5'5" Respiratory rate 14 /min 14 /min MEDENT ( [facility], ) Heart rate 70 /min 70 /min MEDENT ([facility] ) Diastolic blood pressure 80 mm[Hg] 80 mm[Hg] [facility] ([facility] [facility] Systolic blood pressure 130 mm[Hg] 130 mm[Hg] M EDENT ([facility], ) Diastolic blood pressure 88 mm[Hg] 88 mm[Hg] eCW1 ([facility]) Systolic blood pressure 134 mm[Hg] 134 mm[Hg] e CW1 ([facility]) Body temperature 96.7 [degF] 96.7 [degF] eCW1 ( [facility]) Respiratory rate 20 /min 20 /min eCW1 ([facility]) Heart rate 100 /min 100 /min eCW1 ([facility]) Body mass index (BMI) [Ratio] 44.81 kg/m2 44.81 kg/m2 eCW1 ([facility]) Body height 62 [in_i] 62 [in_i] eCW1 ([facility]) Body weight 245 [lb_av] 245 [lb_av] eCW1 ([facility]) Body temperature 96.7 [degF] 96.7 [degF] eCW1 ( [facility]) Respiratory rate 18 /min 18 /min eCW1 ([facility]) Heart rate 73 /min 73 /min eCW1 ([facility]) Body mass index (BMI) [Ratio] 44.73 kg/m2 44.73 kg/m2 eCW1 ([facility]) Body height 62 [in_i] 62 [in_i] eCW1 ([facility]) Body weight 244.6 [lb_av] 244.6 [lb_av] eCW1 ([facility]) Diastolic blood pressure 80 mm[Hg] 80 mm[Hg] eCW1 ([facility]) Systolic blood pressure 130 mm[Hg] 130 mm[Hg] e CW1 ([facility]) Body temperature 98.3 [degF] 98.3 [degF] eCW1 ( [facility]) Respiratory rate 18 /min 18 /min eCW1 ([facility]) Heart rate 98 /min 98 /min eCW1 ([facility]) Body mass index (BMI) [Ratio] 44.66 kg/m2 44.66 kg/m2 eCW1 ([facility]) Body height 62 [in_i] 62 [in_i] eCW1 ([facility]) Body weight 244.2 [lb_av] 244.2 [lb_av] eCW1 ([facility]) Diastolic blood pressure 80 mm[Hg] 80 mm[Hg] eCW1 ([facility]) Systolic blood pressure 142 mm[Hg] 142 mm[Hg] e CW1 ([facility]) Body temperature 97.9 [degF] 97.9 [degF] eCW1 ( [facility]) Respiratory rate 18 /min 18 /min eCW1 ([facility]) Heart rate 104 /min 104 /min eCW1 ([facility]) Body mass index (BMI) [Ratio] 44.44 kg/m2 44.44 kg/m2 eCW1 ([facility]) Body height 62 [in_i] 62 [in_i] eCW1 ([facility]) Body weight 243 [lb_av] 243 [lb_av] eCW1 ([facility]) Diastolic blood pressure 72 mm[Hg] 72 mm[Hg] eCW1 ([facility]) Systolic blood pressure 122 mm[Hg] 122 mm[Hg] e CW1 ([facility]) Body temperature 97.5 [degF] 97.5 [degF] eCW1 ( [facility]) Respiratory rate 18 /min 18 /min eCW1 ([facility]) Heart rate 113 /min 113 /min eCW1 ([facility]) Body mass index (BMI) [Ratio] 45.35 kg/m2 45.35 kg/m2 eCW1 ([facility]) Body height 62 [in_i] 62 [in_i] eCW1 ([facility]) Body weight 248 [lb_av] 248 [lb_av] eCW1 ([facility]) Diastolic blood pressure 68 mm[Hg] 68 mm[Hg] eCW1 ([facility]) Systolic blood pressure 118 mm[Hg] 118 mm[Hg] e CW1 ([facility]) Body temperature 96.4 [degF] 96.4 [degF] eCW1 ( [facility]) Respiratory rate 18 /min 18 /min eCW1 ([facility]) Heart rate 95 /min 95 /min eCW1 ([facility]) Body mass index (BMI) [Ratio] 43.42 kg/m2 43.42 kg/m2 eCW1 ([facility]) Body height 62 [in_us] 62 [in_us] eCW1 ([facility]) Body weight Measured 237.4 [lb_av] 237.4 [lb_av ] eCW1 ([facility]) Diastolic blood pressure 89 mm[Hg] 89 mm[Hg] eCW1 ([facility]) Systolic blood pressure 140 mm[Hg] 140 mm[Hg] e CW1 ([facility]) Body temperature 97.5 [degF] 97.5 [degF] eCW1 ( [facility]) Respiratory rate 18 /min 18 /min eCW1 ([facility]) Heart rate 82 /min 82 /min eCW1 ([facility]) Body mass index (BMI) [Ratio] 43.27 kg/m2 43.27 kg/m2 eCW1 ([facility]) Body height 62 [in_us] 62 [in_us] eCW1 ([facility]) Body weight Measured 236.6 [lb_av] 236.6 [lb_av ] eCW1 ([facility]) Diastolic blood pressure 62 mm[Hg] 62 mm[Hg] eCW1 ([facility]) Systolic blood pressure 131 mm[Hg] 131 mm[Hg] e CW1 ([facility]) Body temperature 97.5 [degF] 97.5 [degF] eCW1 ( [facility]) Respiratory rate 18 /min 18 /min eCW1 ([facility]) Heart rate 110 /min 110 /min eCW1 ([facility]) Body mass index (BMI) [Ratio] 43.89 kg/m2 43.89 kg/m2 eCW1 ([facility]) Body height 62 [in_us] 62 [in_us] eCW1 ([facility]) Body weight Measured 240.0 [lb_av] 240.0 [lb_av ] eCW1 ([facility]) Patient Treatment Plan of Care Planned Activity Planned Date Details Description Data Source (s) doxycycline hyclate 100 MG Oral Capsule 05/01/2020 12:00:00 AM EST eCW1 ([facility]) topiramate 50 MG Oral Tablet 05/01/2020 12:00:00 AM EST [facility] doxycycline hyclate 100 MG Oral Capsule 05/01/2020 12:00:00 AM EST eCW1 ([facility]) Sumatriptan 100 MG Oral Tablet 04/22/2020 12:00:00 AM EST [facility] Oxycodone Hydrochloride 5 MG Oral Tablet 04/21/2020 12:00:00 AM EST eCW1 ([facility]) Alprazolam 0.5 MG Oral Tablet 04/04/2020 12:00:00 AM EST [facility] Metoprolol Tartrate 25 MG Oral Tablet 03/30/2020 12:00:00 AM EST [facility] Oxycodone Hydrochloride 5 MG Oral Tablet 03/27/2020 12:00:00 AM EST eCW1 ([facility]) Verapamil hydrochloride 80 MG Oral Tablet 03/27/2020 12:00:00 AM [facility] Prednisone 20 MG Oral Tablet 03/13/2020 12:00:00 AM EST eCW1 ([facility]) Prednisone 20 MG Oral Tablet 03/13/2020 12:00:00 AM EST eCW1 ([facility]) Furosemide 20 MG Oral Tablet 03/11/2020 12:00:00 AM EST [facility] Oxycodone Hydrochloride 5 MG Oral Tablet 02/28/2020 12:00:00 AM EST eCW1 ([facility]) Oxycodone Hydrochloride 5 MG Oral Tablet 02/28/2020 12:00:00 AM EST eCW1 ([facility]) Oxycodone Hydrochloride 5 MG Oral Tablet 02/28/2020 12:00:00 AM EST eCW1 ([facility]) Oxycodone Hydrochloride 5 MG Oral Tablet 01/27/2020 12:00:00 AM EDT eCW1 ([facility]) Oxycodone Hydrochloride 5 MG Oral Tablet 01/27/2020 12:00:00 AM EDT eCW1 ([facility]) Oxycodone Hydrochloride 5 MG Oral Tablet 01/27/2020 12:00:00 AM EDT eCW1 ([facility]) Verapamil hydrochloride 80 MG Oral Tablet 01/19/2020 12:00:00 AM ED T eCW1 ([facility]) Verapamil hydrochloride 80 MG Oral Tablet 01/19/2020 12:00:00 AM ED T eCW1 ([facility]) Verapamil hydrochloride 80 MG Oral Tablet 01/19/2020 12:00:00 AM ED T eCW1 ([facility]) atorvastatin 40 MG Oral Tablet 12/08/2019 12:00:00 AM EDT [facility] Oxycodone Hydrochloride 5 MG Oral Tablet 10/20/2019 12:00:00 AM EDT eCW1 ([facility]) Oxycodone Hydrochloride 5 MG Oral Tablet 10/20/2019 12:00:00 AM EDT eCW1 ([facility]) Oxycodone Hydrochloride 5 MG Oral Tablet 09/20/2019 12:00:00 AM EDT eCW1 ([facility]) Oxycodone Hydrochloride 5 MG Oral Tablet 08/19/2019 12:00:00 AM EDT eCW1 ([facility]) Oxycodone Hydrochloride 5 MG Oral Tablet 07/21/2019 12:00:00 AM EDT eCW1 ([facility]) Blood Glucose System Binu - 07/01/2019 12:00:00 AM EDT eCW1 ([facility]) One Touch Ultra Test Strips 1 06/30/2019 12:00:00 AM EDT eCW1 ([facility]) Lancets 1 06/30/2019 12:00:00 AM EDT e CW1 ([facility]) Dicyclomine Hydrochloride 10 MG Oral Capsule [facility] Acetaminophen 325 MG / Hydrocodone Bitartrate 5 MG Oral Tablet [facility] atorvastatin 80 MG Oral Tablet [facility] meloxicam 15 MG Oral Tablet [facility]
[2020-05-31] MEDS ORDERED: TOPI200T7 (16:03)
--- OUTSIDE RECORDS SUMMARY | 2020-05-31 17:41 | CCD ---
Author Author [facility] Organization [facility] Address Unknown Phone Unavailable Care Team Providers Care Chief Strategy Officer Name Role Phone Terence Krishnamurthy Unavailable Unavailable BirklinTerence Unavailable Unavailable BirklTerence meeks Unavailable Unavailable BirklTerence meeks Unavailable Unavailable BirklTerence meeks Unavailable Unavailable BirklTerence meeks Unavailable Unavailable BirklTerence meeks Unavailable Unavailable DianeklTerence meeks Unavailable Unavailable BirklTerence meeks Unavailable Unavailable DianeklTerence meeks Unavailable Unavailable BirklTerence meeks Unavailable Unavailable BirklTerence meeks Unavailable Unavailable BirklTerence meeks Unavailable Unavailable Dianeklin, Terence Karthik PA [...] [place] PA Unavailable Unavailable Kocan, J Shaina ADOPTION WORKER Unavailable Unavailable Kocan, J Shaina ADOPTION WORKER Unavailable Unavailable Kocan, J Shaina ADOPTION WORKER Unavailable Unavailable Kocan, J Shaina ADOPTION WORKER Unavailable Unavailable Kocan, J Shaina ADOPTION WORKER Unavailable Unavailable Kocan, J Shaina ADOPTION WORKER Unavailable Unavailable Kocan, J Shaina ADOPTION WORKER Unavailable Unavailable Kocan, J Shaina ADOPTION WORKER Unavailable Unavailable Kocan, J Shaina ADOPTION WORKER Unavailable Unavailable Kocan, J Shaina ADOPTION WORKER Unavailable Unavailable Kocan, J Shaina ADOPTION WORKER Unavailable Unavailable Kocan, J Shaina ADOPTION WORKER Unavailable Unavailable Kocan, J Shaina ADOPTION WORKER Unavailable Unavailable TORIBIO, NEO MD Unavailable Unavailable TORIBIO, NEO MD Unavailable Unavailable TORIBIO NEO MD Unavailable Unavailable TORIBIO, NEO MD Unavailable Unavailable TORIBIO, NEO MD Unavailable Unavailable TORIBIO, NEO MD Unavailable Unavailable TORIBIO, NEO MD Unavailable Unavailable TORIBIO, NEO MD Unavailable Unavailable TORIBIO, NEO MD Unavailable Unavailable TORIBIO, NEO MD Unavailable Unavailable TORIBIO NEO MD Unavailable Unavailable TORIBIO, NEO MD [...] Unavailable TORIBIO, ENO MD Unavailable Unavailable TORIBIO, NEO MD Unavailable [...] Unavailable TORIBIO, NEO MD Unavailable Unavailable Petrancosta, [place] Regina PA-C Unavailable Unavailabl e Petrancosta, [place] Regina PA-C Unavailable Unavailabl e Petrancosta, [place] Regina PA-C Unavailable Unavailabl e Petrancosta, [place] Regina PA-C Unavailable Unavailabl e Petrancosta, [place] Regina PA-C Unavailable Unavailabl e Petrancosta, [place] Regina PA-C Unavailable Unavailabl e Petrancosta, [place] Regina PA-C Unavailable Unavailabl e Petrancosta, [place] Regina PA-C Unavailable Unavailabl e Petrancosta, [place] Regina PA-C Unavailable Unavailabl e Petrancosta, [place] Regina PA-C Unavailable Unavailabl e Petrancosta, [place] Regina PA-C Unavailable Unavailabl e Petrancosta, [place] Regina PA-C Unavailable Unavailabl e Petrancosta, [place] Regina PA-C Unavailable Unavailabl e Petrancosta, [place] Regina PA-C Unavailable Unavailabl e Petrancosta, [place] Regina PA-C Unavailable Unavailabl e Petrancosta, [place] Regina PA-C Unavailable Unavailabl e Petrancosta, [place] Regina PA-C Unavailable Unavailabl e Petrancosta, [place] Regina PA-C Unavailable Unavailabl e Petrancosta, [place] Regina PA-C Unavailable Unavailabl e Petrancosta, [place] Regina PA-C Unavailable Unavailabl e Petrancosta, [place] Regina PA-C Unavailable Unavailabl e Petrancosta, [place] Regina PA-C Unavailable Unavailabl e Petrancosta, [place] Regina PA-C Unavailable Unavailabl e SINDI HARGROVE [...] is protected by Article 27-F of the [facility] Public Health law. If you continue you may have access to information: Regarding HIV / AIDS; Provided by facilities licensed or operated by the [facility] Office of Mental Health; or Provided by the [facility] Office for People With Developmental Disabilities. If such information is present, then the following [facility] mandated warning applies: This information [...] law may result in a fine or long-term sentence or both. A general authorization for the release of medical or other information is NOT sufficient authorization for further disc losure. Allergies and Adverse Reactions Type Description Substance Reaction Status Data Source(s ) Drug allergy Amitriptyline HCl Amitriptyline Hives Active eC W1 ([facility]) Drug allergy Percocet acetaminophen / oxycodone Hives Active eCW1 ([facility]) cats cats cats Eyes water Active eCW1 ([facility]) Propensity to adverse reactions OXYCODONE-ACETAMINOPHEN Oxycodon e-Acetaminophen Active [facility] cats cats cats Eyes water Active eCW1 ([facility]) cats cats cats Eyes water Active eCW1 ([facility]) Family History Family Member Name Family Member Gender Family Member Status Date o f Status Description Data Source(s) Unknown Male Problem MEDENT ([facility]) Unknown Female Problem MEDENT ([facility]) Unknown Unknown Problem MEDENT ([facility]) Unknown Female Problem MEDENT ([facility] Encounters Encounter Providers Location Date Indications Data Source(s ) Outpatient Attender: Regina Gagnon PA-C Main Office 05/17/2020 12:30:00 PM EST MEDENT ([facility] Unknown [address] [facility] [address] 05/12/2020 12:00:00 AM EST [facility] Outpatient [address] [facility] [id number] 05/11/2020 12:00:00 AM EST eCW1 ([facility]) Outpatient Attender: Shaina JORGE [email or web address] 2020 12:00:00 AM EST - 05/03/2020 03:12:51 PM EST [facility] Unknown [address] [facility] [id number] 04/27/2020 12:00:00 AM EST eCW1 ([facility]) Outpatient [address] [facility] [address] 04/26/2020 12:00:00 AM EST [facility]CW1 ([facility]) Unknown [address] [facility] [address] 04/26/2020 12:00:00 AM EST [facility]CW1 [facility] Unknown [address] [facility] [address] 04/21/2020 12:00:00 AM EST eCW1 ([facility]) Unknown [address] [facility] [address] 04/19/2020 12:00:00 AM EST eCW1 ([facility]) Unknown [address] [facility] [address] 04/11/2020 12:00:00 AM EST eCW1 ([facility]) Unknown [address] [facility] [address] 04/10/2020 12:00:00 AM EST eCW1 ([facility]) Outpatient Attender: Elinor Leung MD Main office - [place] 04/03/2020 11:00:00 AM EST MEDENT ([facility] KIRBY almonte) Outpatient [address] [facility] [place] [address] 03/29/2020 12:00:00 AM EST [facility] Unknown [address] [facility] [address] 03/27/2020 12:00:00 AM EST [facility]CW1 [facility] [place] [address] [facility] [place] [address] 03/13/2020 12:00:00 AM EST eCW1 [facility] Unknown [address] [facility] [address] 03/10/2020 12:00:00 AM EST eCW1 [facility] [place] [address] [facility] [place] [address] 02/28/2020 12:00:00 AM EST eCW1 [facility] [place] [address] [facility] [place] [address] 02/18/2020 12:00:00 AM EST eCW1 [facility] [place] [address] [facility] [place] [address] 01/27/2020 12:00:00 AM EDT eCW1 ([facility]) Outpatient [address] [facility] [place] [address] 01/19/2020 12:00:00 AM EDT eCW1 ([facility] [place] [address] [facility] [place] [address] 01/12/2020 12:00:00 AM EDT eCW1 ([facility]) [facility] [address] [facility] [place] [address] 11/25/2019 12:00:00 AM EDT eCW1 ([facility]) [place] [address] [facility] [place] [address] 10/20/2019 12:00:00 AM EDT eCW1 ([facility]) Unknown [address] [facility] [place] [address] 09/20/2019 12:00:00 AM EDT eCW1 [facility]) Outpatient Attender: DMRAIN [facility] 09/14/2019 07:36:45 PM EDT [facility] Unknown [address] [facility] [place] [address] 09/14/2019 12:00:00 AM EDT eCW1 ([facility] [place] [address] [facility] [place] [address] 09/10/2019 12:00:00 AM EDT eCW1 ([facility]) Outpatient Attender: DMCCHAYDE [facility] 09/04/2019 12:10:55 AM EDT [facility] [address] [facility] [address] 09/02/2019 12:00:00 AM EDT eCW1 ([facility] [address] [facility] [place] [address] 08/26/2019 12:00:00 AM EDT eCW1 ([facility]) Outpatient [address] [facility] [place] [address] 08/25/2019 12:00:00 AM EDT eCW1 ([facility]) [facility] [place] [address] [facility] [place] [address] 08/18/2019 12:00:00 AM EDT eCW1 ([facility]) [facility] [place] [address] [facility] [place] [address] 08/17/2019 12:00:00 AM EDT eCW1 ([facility]) [place] [address] [facility] [place] [address] 07/28/2019 12:00:00 AM EDT eCW1 ([facility]) [facility] [place] [address] [facility] [place] [address] 07/20/2019 12:00:00 AM EDT eCW1 ([facility]) [facility]ATRIC [place] [address] [facility] [place] [address] 07/01/2019 12:00:00 AM EDT eCW1 ([facility]) [facility]AT[facility] [place] [address] [facility] [place] [address] 06/29/2019 12:00:00 AM EDT [facility] [place] [address] [facility] [place] [address] 06/29/2019 12:00:00 AM EDT eCW1 ([facility]) [facility] [address] [place] [address] 06/28/2019 12:00:00 AM EDT eCW1 [facility]) Outpatient 06/02/2019 05:33:00 AM EST [facility] PS[facility]CHIATRIC [place] [address] [facility] [place] [address] 05/27/2019 12:00:00 AM EST eCW1 ([facility] [place] [address] [facility] [place] [address] 05/25/2019 12:00:00 AM EST eCW1 ([facility]) Outpatient 05/20/2019 12:44:00 PM EST [facility]IATR[facility] [place] [address] [facility] [place] [address] 05/13/2019 12:00:00 AM EST eCW1 ([facility]) Outpatient Attender: SINDI HARGROVE MD [email or web address] 05/05/2019 12:00:00 AM EST [facility] Outpatient Attender: Karthik JONES [id number] 05/04/2019 12 :00:00 AM EST Other fracture of right lower leg, subsequent encounter for closed fracture with routine healing [facility] Other fracture of right lower leg, subse quent encounter for closed fracture with routine healing Outpatient Referrer: Karthik JONES 05/04/2019 12 :00:00 AM EST Other fracture of right lower leg, subsequent encounter for closed fracture with routine healing [facility] Other fracture of right lower leg, subse quent encounter for closed fracture with routine healing Outpatient Attender: [email or web address] [facility] 04/30/2019 02:19:00 PM EST [facility] [address] [place] [phone] 04/30/2019 12:00:00 AM EST eCW1 ([facility]) [facility] [address] [place] [phone] 04/28/2019 12:00:00 AM EST eCW1 ([facility]) [facility]ATRIC Hall [address] [place] [address] 04/15/2019 12:00:00 AM EST eCW1 ([facility]) [facility] [address] [place] [phone] 04/15/2019 12:00:00 AM EST eCW1 ([facility]) [facility] [address] [place] [phone] 04/14/2019 12:00:00 AM EST eCW1 ([facility]) [facility] [address] [place] [phone] 04/02/2019 12:00:00 AM EST eCW1 ([facility]) Outpatient Attender: NEO ROONEY MD [id number] 03/23/2019 12:00:0 0 AM EST Other fracture of right lower leg, subsequent encounter for closed fracture with routine healing [facility] Other fracture of right lower [...] MAXIMUM DAILY DOSE = 4 SOLD: 05/24/2020 Positron doxycycline hyclate 100 MG Oral Capsule DOXYCYCLINE [...] suspended Doxycycline Hyclate 100 MG eCW1 ([facility]) doxycycline hyclate 100 MG Oral Capsule Doxycycline Hy clate 100 MG Doxycycline Hyclate 100 MG 05/01/2020 12:00:00 AM EST 1.0 {capsule} active Doxycycline Hyclate 100 MG eCW1 ([facility]) topiramate 50 MG Oral Tablet topiramate (TOPAMAX) 50 M G tablet topiramate (TOPAMAX) 50 MG tablet 05/01/2020 12:00:00 AM EST active [facility] doxycycline hyclate 100 MG Oral Capsule Doxycycline Hy clate 100 MG Doxycycline Hyclate 100 MG 05/01/2020 12:00:00 AM EST 1.0 {capsule} active Doxycycline Hyclate 100 MG eCW1 ([facility]) doxycycline hyclate 100 MG Oral Capsule Doxycycline Hy clate 100 MG Doxycycline Hyclate 100 MG 05/01/2020 12:00:00 AM EST 1.0 {capsule} suspended Doxycycline Hyclate 100 MG eCW1 ([facility]) Sumatriptan 100 MG Oral Tablet SUMAtriptan (IMITREX) 1 00 MG tablet SUMAtriptan (IMITREX) 100 MG tablet 04/22/2020 12:00:00 AM EST active TAKE 1/2 TO 1 TABLET BY MOUTH AT ONSET OF HEADACHE MAY REPEAT ONE AFTER 2 HOURS. MAXIMUM DAILY DOSE TWO TABLETS [facility] Oxycodone Hydrochloride 5 MG Oral Tablet Oxycodone HCl 5 MG Oxycodone HCl 5 MG 04/21/2020 12:00:00 AM EST active Oxycodone HCl 5 MG eCW1 ([facility]) Oxycodone Hydrochloride 5 MG Oral Tablet Oxycodone HCl 5 MG Oxycodone HCl 5 MG 04/21/2020 12:00:00 AM EST active Oxycodone HCl 5 MG eCW1 ([facility]) Oxycodone Hydrochloride 5 MG Oral Tablet Oxycodone HCl 5 MG Oxycodone HCl 5 MG 04/21/2020 12:00:00 AM EST active Oxycodone HCl 5 MG eCW1 ([facility]) Oxycodone Hydrochloride 5 MG Oral Tablet Oxycodone HCl 5 MG Oxycodone HCl 5 MG 04/21/2020 12:00:00 AM EST active Oxycodone HCl 5 MG eCW1 ([facility]) Oxycodone Hydrochloride 5 MG Oral Tablet Oxycodone HCl 5 MG Oxycodone HCl 5 MG 04/21/2020 12:00:00 AM EST active Oxycodone HCl 5 MG eCW1 ([facility]) 5 mg 04/21/2020 12:00:00 AM EST tablet [...] active Oxycodone HCl 5 MG eCW1 ([facility]) Alprazolam 0.5 MG Oral Tablet ALPRAZolam (XANAX) 0.5 M G tablet ALPRAZolam (XANAX) 0.5 MG tablet 04/04/2020 12:00:00 AM EST active TAKE ONE TABLET BY MOUTH 30 MINUTES BEFORE MRI SCAN MAY REPEAT ONCE NEEDED. MAXIMUM DAILY DOSE TWO TABLETS [facility] Sumatriptan 100 MG Oral Tablet Sumatriptan Succinate 04/03/2020 12:00:00 AM EST ORAL active MEDENT ( [facility]) Alprazolam 0.5 MG Oral Tablet Alprazolam 04/03/2020 12:00:00 AM EST ORAL active MEDENT ([facility]) topiramate 50 MG Oral Tablet Topiramate 04/03/2020 12:00:00 AM EST active MEDENT ([facility]) Metoprolol Tartrate 25 MG Oral Tablet me toprolol tartrate (LOPRESSOR) 25 MG tablet metoprolol tartrate (LOPRESSOR) 25 MG tablet 03/30/2020 12:0 0:00 AM EST 25 mg Oral active Take 25 mg by mo uth 2 (two) times a day [facility] 25 mg 03/30/2020 12:00:00 AM EST tablet 60 TAKE ONE TABLET BY MOUTH TWICE A DAY WITH FOOD TAKE ONE TABLET BY MOUTH TWICE A DAY WITH FOOD SOLD: 04/01/2020 [facility] Metoprolol Tartrate 25 MG Oral Tablet Metoprolol Tartrate 25 MG 03/29/2020 12:00:00 AM EST 1.0 {tablet_with_food} active Metoprolol Tartrate 25 MG eCW1 ([facility]) Metoprolol Tartrate 25 MG Oral Tablet Metoprolol Tartrate 25 MG 03/29/2020 12:00:00 AM EST 1.0 {tablet_with_food} active Metoprolol Tartrate 25 MG eCW1 ([facility]) Metoprolol Tartrate 25 MG Oral Tablet Metoprolol Tartrate 25 MG 03/29/2020 12:00:00 AM EST 1.0 {tablet_with_food} active Metoprolol Tartrate 25 MG eCW1 ([facility]) Metoprolol Tartrate 25 MG Oral Tablet Metoprolol Tartrate 25 MG 03/29/2020 12:00:00 AM EST 1.0 {tablet_with_food} active Metoprolol Tartrate 25 MG eCW1 ([facility]) Metoprolol Tartrate 25 MG Oral Tablet Metoprolol Tartrate 25 MG 03/29/2020 12:00:00 AM EST 1.0 {tablet_with_food} active Metoprolol Tartrate 25 MG eCW1 ([facility]) Metoprolol Tartrate 25 MG Oral Tablet Metoprolol Tartrate 25 MG 03/29/2020 12:00:00 AM EST 1.0 {tablet_with_food} active Metoprolol Tartrate 25 MG eCW1 ([facility]) Metoprolol Tartrate 25 MG Oral Tablet Metoprolol Tartrate 25 MG 03/29/2020 12:00:00 AM EST 1.0 {tablet_with_food} active Metoprolol Tartrate 25 MG eCW1 ([facility]) Metoprolol Tartrate 25 MG Oral Tablet Metoprolol Tartrate 25 MG 03/29/2020 12:00:00 AM EST 1.0 {tablet_with_food} active Metoprolol Tartrate 25 MG eCW1 ([facility]) Metoprolol Tartrate 25 MG Oral Tablet Metoprolol Tartrate 25 MG 03/29/2020 12:00:00 AM EST 1.0 {tablet_with_food} active Metoprolol Tartrate 25 MG eCW1 ([facility]) Metoprolol Tartrate 25 MG Oral Tablet Metoprolol Tartrate 25 MG 03/29/2020 12:00:00 AM EST 1.0 {tablet_with_food} active Metoprolol Tartrate 25 MG eCW1 ([facility]) Oxycodone Hydrochloride 5 MG Oral Tablet Oxycodone HCl 5 MG Oxycodone HCl 5 MG 03/27/2020 12:00:00 AM EST active Oxycodone HCl 5 MG eCW1 ([facility]) 5 mg 03/27/2020 12:00:00 AM EST tablet [...] active Oxycodone HCl 5 MG eCW1 ([facility]) Oxycodone Hydrochloride 5 MG Oral Tablet Oxycodone HCl 5 MG Oxycodone HCl 5 MG 03/27/2020 12:00:00 AM EST active Oxycodone HCl 5 MG eCW1 ([facility]) Oxycodone Hydrochloride 5 MG Oral Tablet Oxycodone HCl 5 MG Oxycodone HCl 5 MG 03/27/2020 12:00:00 AM EST active Oxycodone HCl 5 MG eCW1 ([facility]) Oxycodone Hydrochloride 5 MG Oral Tablet Oxycodone HCl 5 MG Oxycodone HCl 5 MG 03/27/2020 12:00:00 AM EST active Oxycodone HCl 5 MG eCW1 ([facility]) Verapamil hydrochloride 80 MG Oral Tablet verapamil (C BRANDON) 80 MG tablet verapamil (CALAN) 80 MG tablet 03/27/2020 12:00:00 AM EST 80 mg Or al active Take 80 mg by mouth 3 (three) ti mes a day [facility] Prednisone 20 MG Oral Tablet PredniSONE 20 MG PredniSONE 20 MG 03/13/2020 12:00:00 AM EST 2.0 {tablets} active P redniSONE 20 MG eCW1 ([facility]) 20 mg 03/13/2020 12:00:00 AM EST tablet 4 TAKE TWO TABLETS BY MOUTH EVERY DAY TAKE TWO TABLETS BY MOUTH EVERY DAY SOLD: 03/17/2020 [facility] Prednisone 20 MG Oral Tablet PredniSONE 20 MG PredniSONE 20 MG 03/13/2020 12:00:00 AM EST 2.0 {tablets} suspended PredniSONE 20 MG eCW1 ([facility]) Prednisone 20 MG Oral Tablet PredniSONE 20 MG PredniSONE 20 MG 03/13/2020 12:00:00 AM EST 2.0 {tablets} suspended PredniSONE 20 MG eCW1 ([facility]) Prednisone 20 MG Oral Tablet PredniSONE 20 MG PredniSONE 20 MG 03/13/2020 12:00:00 AM EST 2.0 {tablets} suspended PredniSONE 20 MG eCW1 ([facility]) Prednisone 20 MG Oral Tablet PredniSONE 20 MG PredniSONE 20 MG 03/13/2020 12:00:00 AM EST 2.0 {tablets} suspended PredniSONE 20 MG eCW1 ([facility]) Prednisone 20 MG Oral Tablet PredniSONE 20 MG PredniSONE 20 MG 03/13/2020 12:00:00 AM EST 2.0 {tablets} suspended PredniSONE 20 MG eCW1 ([facility]) Prednisone 20 MG Oral Tablet PredniSONE 20 MG PredniSONE 20 MG 03/13/2020 12:00:00 AM EST 2.0 {tablets} suspended PredniSONE 20 MG eCW1 ([facility]) Prednisone 20 MG Oral Tablet PredniSONE 20 MG PredniSONE 20 MG 03/13/2020 12:00:00 AM EST 2.0 {tablets} suspended PredniSONE 20 MG eCW1 ([facility]) Prednisone 20 MG Oral Tablet PredniSONE 20 MG PredniSONE 20 MG 03/13/2020 12:00:00 AM EST 2.0 {tablets} suspended PredniSONE 20 MG eCW1 ([facility]) Prednisone 20 MG Oral Tablet PredniSONE 20 MG PredniSONE 20 MG 03/13/2020 12:00:00 AM EST 2.0 {tablets} suspended PredniSONE 20 MG eCW1 ([facility]) Prednisone 20 MG Oral Tablet PredniSONE 20 MG PredniSONE 20 MG 03/13/2020 12:00:00 AM EST 2.0 {tablets} suspended PredniSONE 20 MG eCW1 ([facility]) Prednisone 20 MG Oral Tablet PredniSONE 20 MG PredniSONE 20 MG 03/13/2020 12:00:00 AM EST 2.0 {tablets} active P redniSONE 20 MG eCW1 ([facility]) atorvastatin 40 MG Oral Tablet ATORVASTATIN CALCIUM [...] hypertension TAKE ONE TABLET BY MOUTH E [facility] Edema, unspecified type Benign essential hypertension pantoprazole [...] active Oxycodone HCl 5 MG eCW1 ([facility]) Oxycodone Hydrochloride 5 MG Oral Tablet Oxycodone HCl 5 MG Oxycodone HCl 5 MG 02/28/2020 12:00:00 AM EST active Oxycodone HCl 5 MG eCW1 ([facility]) Oxycodone Hydrochloride 5 MG Oral Tablet Oxycodone HCl 5 MG Oxycodone HCl 5 MG 02/28/2020 12:00:00 AM EST active Oxycodone HCl 5 MG eCW1 ([facility]) 5 mg 02/28/2020 12:00:00 AM EST tablet [...] active Oxycodone HCl 5 MG eCW1 ([facility]) Oxycodone Hydrochloride 5 MG Oral Tablet Oxycodone HCl 5 MG Oxycodone HCl 5 MG 01/27/2020 12:00:00 AM EDT active Oxycodone HCl 5 MG eCW1 ([facility]) Oxycodone Hydrochloride 5 MG Oral Tablet Oxycodone HCl 5 MG Oxycodone HCl 5 MG 01/27/2020 12:00:00 AM EDT active Oxycodone HCl 5 MG eCW1 ([facility]) Oxycodone Hydrochloride 5 MG Oral Tablet Oxycodone HCl 5 MG Oxycodone HCl 5 MG 01/27/2020 12:00:00 AM EDT active Oxycodone HCl 5 MG eCW1 ([facility]) 80 mg 01/20/2020 12:00:00 AM EDT tablet [...] e Verapamil HCl 80 MG eCW1 ([facility]) Verapamil hydrochloride 80 MG Oral Tablet Verapamil HC l 80 MG Verapamil HCl 80 MG 01/19/2020 12:00:00 AM EDT 1.0 {tablet} activ e Verapamil HCl 80 MG eCW1 ([facility]) Verapamil hydrochloride 80 MG Oral Tablet Verapamil HC l 80 MG Verapamil HCl 80 MG 01/19/2020 12:00:00 AM EDT 1.0 {tablet} activ e Verapamil HCl 80 MG eCW1 ([facility]) Verapamil hydrochloride 80 MG Oral Tablet Verapamil HC l 80 MG Verapamil HCl 80 MG 01/19/2020 12:00:00 AM EDT 1.0 {tablet} activ e Verapamil HCl 80 MG eCW1 ([facility]) Verapamil hydrochloride 80 MG Oral Tablet Verapamil HC l 80 MG Verapamil HCl 80 MG 01/19/2020 12:00:00 AM EDT 1.0 {tablet} activ e Verapamil HCl 80 MG eCW1 ([facility]) Verapamil hydrochloride 80 MG Oral Tablet Verapamil HC l 80 MG Verapamil HCl 80 MG 01/19/2020 12:00:00 AM EDT 1.0 {tablet} activ e Verapamil HCl 80 MG eCW1 ([facility]) Verapamil hydrochloride 80 MG Oral Tablet Verapamil HC l 80 MG Verapamil HCl 80 MG 01/19/2020 12:00:00 AM EDT 1.0 {tablet} activ e Verapamil HCl 80 MG eCW1 ([facility]) Verapamil hydrochloride 80 MG Oral Tablet Verapamil HC l 80 MG Verapamil HCl 80 MG 01/19/2020 12:00:00 AM EDT 1.0 {tablet} activ e Verapamil HCl 80 MG eCW1 ([facility]) 2 % 01/13/2020 12:00:00 AM EDT cream 45 INSERT 1 APPLICATORFUL VAGINALLY AT BEDTIME FOR 7 DAYS INSERT 1 APPLICATORFUL VAGINALLY AT BEDTIME FOR 7 DAYS SOLD: 01/13/2020 [facility] 5 mg 12/31/2019 12:00:00 AM EDT [...] BY MOUTH EVERY EVENING SOLD: 12/13/2019 Maryan morrison atorvastatin 40 MG Oral Tablet atorvastatin (LIPITOR) 40 MG tablet atorvastatin (LIPITOR) 40 MG tablet 12/08/2019 12:00:00 AM EDT 40 mg Oral active Take 40 mg by mouth daily [facility] 300 mg 12/07/2019 12:00:00 AM EDT capsule [...] active Oxycodone HCl 5 MG eCW1 ([facility]) 5 mg 10/20/2019 12:00:00 AM EDT tablet [...] active Oxycodone HCl 5 MG eCW1 ([facility]) Oxycodone Hydrochloride 5 MG Oral Tablet Oxycodone HCl 5 MG Oxycodone HCl 5 MG 09/20/2019 12:00:00 AM EDT active Oxycodone HCl 5 MG eCW1 ([facility]) 5 mg 09/20/2019 12:00:00 AM EDT tablet [...] active Oxycodone HCl 5 MG eCW1 ([facility]) Oxycodone Hydrochloride 5 MG Oral Tablet Oxycodone HCl 5 MG Oxycodone HCl 5 MG 08/19/2019 12:00:00 AM EDT active Oxycodone HCl 5 MG eCW1 ([facility]) 5 mg 08/19/2019 12:00:00 AM EDT tablet 30 TAKE ONE TABLET BY MOUTH EVERY 6 HOURS NEEDED MAXIMUM DAILY DOSE = 2 TAKE ONE TABLET BY MOUTH EVERY 6 HOURS A S NEEDED MAXIMUM DAILY DOSE = 2 SOLD: 08/20/2019 [facility] Oxycodone Hydrochloride 5 MG Oral Tablet Oxycodone HCl 5 MG Oxycodone HCl 5 MG 08/19/2019 12:00:00 AM EDT active Oxycodone HCl 5 MG eCW1 ([facility]) Oxycodone Hydrochloride 5 MG Oral Tablet Oxycodone HCl 5 MG Oxycodone HCl 5 MG 08/19/2019 12:00:00 AM EDT active 1 tablet as needed MDD 2 eCW1 ([facility]) Oxycodone Hydrochloride 5 MG Oral Tablet Oxycodone HCl 5 MG Oxycodone HCl 5 MG 07/21/2019 12:00:00 AM EDT active 1 tablet as needed MDD 2 eCW1 ([facility]) 5 mg 07/21/2019 12:00:00 AM EDT tablet 30 TAKE ONE TABLET BY MOUTH EVERY 6 HOURS NEEDED, MAXIMUM DAILY DOSE = 2 TABLETS TAKE ONE TABLET BY MOUTH EVERY 6 HOURS NEEDED, MAXIMUM DAILY DOSE = 2 TABLETS SOLD: 07/22/2019 [facility] BLOOD-GLUCOSE METER 07/02/2019 12:00:00 AM EDT misc [...] Glucose Sys tem Binu - eCW1 ([facility]) Blood Glucose System Binu - Blood Glucose System Binu - 2019 12:00:00 AM EDT active Blood Glucose Sys tem Binu - eCW1 ([facility]) Blood Glucose System Binu - Blood Glucose System 2019 12:00:00 AM EDT active Blood Glucose Sys tem Binu - eCW1 ([facility]) Blood Glucose System Binu - Blood Glucose System - 2019 12:00:00 AM EDT active Blood Glucose Sys tem Binu - eCW1 ([facility]) Blood Glucose System Binu - Blood Glucose System - 2019 12:00:00 AM EDT active Blood Glucose Sys tem Binu - eCW1 ([facility]) Blood Glucose System Binu - Blood Glucose System 2019 12:00:00 AM EDT active Blood Glucose Sys tem Binu - eCW1 ([facility]) Blood Glucose System Binu - Blood Glucose System 2019 12:00:00 AM EDT active Blood Glucose Sys tem Binu - eCW1 ([facility]) Blood Glucose System Binu - Blood Glucose System - 2019 12:00:00 AM EDT active Blood Glucose Sys tem Binu - eCW1 ([facility]) Blood Glucose System Binu - Blood Glucose System 2019 12:00:00 AM EDT active Blood Glucose Sys tem Binu - eCW1 ([facility]) Blood Glucose System Binu - Blood Glucose System Binu 2019 12:00:00 AM EDT active Blood Glucose Sys tem Binu - eCW1 ([facility]) Blood Glucose System Binu - Blood Glucose System 2019 12:00:00 AM EDT active meter eCW1 ([facility]) Blood Glucose System Binu - Blood Glucose System 2019 12:00:00 AM EDT active Blood Glucose Sys tem Binu - eCW1 ([facility]) Blood Glucose System Binu - Blood Glucose System 2019 12:00:00 AM EDT active Blood Glucose Sys tem Binu - eCW1 ([facility]) Blood Glucose System Binu - Blood Glucose System 2019 12:00:00 AM EDT active Blood Glucose Sys tem Binu - eCW1 ([facility]) Blood Glucose System Binu - Blood Glucose System 2019 12:00:00 AM EDT active Blood Glucose Sys tem Binu - eCW1 ([facility]) Blood Glucose System Binu - Blood Glucose System 2019 12:00:00 AM EDT active Blood Glucose Sys tem Binu -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 UJX4ZSEyYQThRD6VSkVaIXLoTtMvSGvgKMQpFTZgrn 9VTTSlMAWtVBLoQWMuYFRqPJRvMAnrQWBjLLSmNEOxMPTqFEAeHM9SVeAbJPChFds2YdHsXMXgWWVcne 3OWCUpDJYmTRM0XFDoVSBxGEAuDKejSLVqBSX5RxQwBQWlMANmUV0PVgFyXIPsWob3QZQiLVZmAMMhux 5IPYUhRBKjKOrfWCZqZZQcEGZfXSf9fpDrxPNaFYz0 BJ0PO8FhqpEtCYCFAf1Kw243CZB3GORfGp7TB4mtGx6uWIFxKAIKTo6YLUy4JNwaP6PtWeQ6XRN7JjAg HflvDcJ5N1AlAhXkP3VoSQX+GSrdONIzDSIuViPwDscqOkUhDsVuUwAbQUBfQYUzFRPbUh1fTIEKYd5+ MMhdjCNxlLxcOZYHStZqHXbxMSfxIQGTHs7R ID Date Data Source [id number] 05/05/2019 07:19:27 AM [facility] XR ANKLE 3 OR MORE VIEWS [id number] RESU LTInterpreted by:Santos Zazueta ankleINDICATION: FractureFINDINGS: Comparison [...] Smoker completed Never S moker eCW1 ([facility]) Smoking 05/11/2020 12:00:00 AM EST Never Smoker completed Never S moker eCW1 ([facility]) Alcohol intake 05/03/2020 12:00:00 AM EST No completed [facility] Smoking 05/03/2020 12:00:00 AM EST Never smoker completed Never s moker [facility] Smoking 04/26/2020 12:00:00 AM EST Never Smoker completed Never S moker eCW1 ([facility]) Smoking 04/26/2020 12:00:00 AM EST Never Smoker completed Never S moker eCW1 ([facility]) Smoking 04/26/2020 12:00:00 AM EST Never Smoker completed Never S moker eCW1 ([facility]) Smoking 03/29/2020 12:00:00 AM EST Never Smoker completed Never S moker eCW1 ([facility]) Smoking 03/29/2020 12:00:00 AM EST Never Smoker completed Never S moker eCW1 ([facility]) Smoking 03/29/2020 12:00:00 AM EST Never Smoker completed Never S moker eCW1 ([facility]) Smoking 03/29/2020 12:00:00 AM EST Never Smoker completed Never S moker eCW1 ([facility]) Smoking 03/29/2020 12:00:00 AM EST Never Smoker completed Never S moker eCW1 ([facility]) Smoking 02/18/2020 12:00:00 AM EST Never Smoker completed Never S moker eCW1 ([facility]) Smoking 02/18/2020 12:00:00 AM EST Never Smoker completed Never S moker eCW1 ([facility]) Smoking 02/18/2020 12:00:00 AM EST Never Smoker completed Never S moker eCW1 ([facility]) Smoking 02/18/2020 12:00:00 AM EST Never Smoker completed Never S moker eCW1 ([facility]) Smoking 02/18/2020 12:00:00 AM EST Never Smoker completed Never S moker eCW1 ([facility]) Smoking 01/19/2020 12:00:00 AM EDT Never Smoker completed Never S moker eCW1 ([facility]) Smoking 01/19/2020 12:00:00 AM EDT Never Smoker completed Never S moker eCW1 ([facility]) Smoking 01/19/2020 12:00:00 AM EDT Never Smoker completed Never S moker eCW1 ([facility]) Smoking 08/25/2019 12:00:00 AM EDT Never Smoker completed Never S moker eCW1 ([facility]) Smoking 08/25/2019 12:00:00 AM EDT Never Smoker completed Never S moker eCW1 ([facility]) Smoking 08/25/2019 12:00:00 AM EDT Never Smoker completed Never S moker eCW1 ([facility]) Smoking 08/25/2019 12:00:00 AM EDT Never Smoker completed Never S moker eCW1 ([facility]) Smoking 08/25/2019 12:00:00 AM EDT Never Smoker completed Never S moker eCW1 ([facility]) Smoking 08/25/2019 12:00:00 AM EDT Never Smoker completed Never S moker eCW1 ([facility]) Alcohol intake 05/04/2019 12:00:00 AM EST [facility] (finding[facility] 12:00:00 AM EST Never smoker completed Never s [facility] Vital Signs ID Date Data Source UNK Name Value Range Interpretation Code Description Data Source(s) Body mass index (BMI) [Ratio] 44.1 kg/m2 44.1 k g/m2 MEDENT ([facility] [place] body weight 105 [lb_av] 105 [lb_av] MEDEN [...] pressure 80 mm[Hg] 80 mm[Hg] eCW1 ([facility]) Systolic blood pressure 132 mm[Hg] 132 mm[Hg] e CW1 ([facility]) Body temperature 97.3 [degF] 97.3 [degF] eCW1 ( [facility]) Respiratory rate 20 /min 20 /min eCW1 ([facility]) Heart rate 90 /min 90 /min eCW1 ([facility]) Body mass index (BMI) [Ratio] 43.71 kg/m2 43.71 kg/m2 eCW1 ([facility]) Body height 62 [in_i] 62 [in_i] eCW1 ([facility]) Body weight [lb_av] eCW1 ([facility]) Diastolic blood pressure 74 mm[Hg] 74 mm[Hg] [facility] Systolic blood pressure 114 mm[Hg] 114 mm[Hg] [facility] Oxygen saturation in Arterial blood by Pulse oximetry 98 % 98 % [facility] Body mass index (BMI) [Ratio] 39.27 kg/m2 39.27 kg/m2 [facility] Body weight 107.049 kg 107.049 kg [facility] Body height 165.1 cm 165.1 cm [facility] Heart rate 89 /min 89 /min [facility] Diastolic blood pressure 86 mm[Hg] 86 mm[Hg] eCW1 ([facility]) Systolic blood pressure 136 mm[Hg] 136 mm[Hg] e CW1 ([facility]) Body temperature 97.7 [degF] 97.7 [degF] eCW1 ( [facility]) Respiratory rate 20 /min 20 /min eCW1 ([facility]) Heart rate 106 /min 106 /min eCW1 ([facility]) Body mass index (BMI) [Ratio] 43.71 kg/m2 43.71 kg/m2 eCW1 ([facility]) Body height 62 [in_i] 62 [in_i] eCW1 ([facility]) Body weight 239 [lb_av] 239 [lb_av] eCW1 ([facility]) [place] body weight 125 [lb_av] 125 [lb_av] MEDEN T ([facility] ) Body mass index (BMI) [Ratio] 39.9 kg/m2 39.9 k g/m2 MEDENT ([facility] ) Body weight 240.00 [lb_av] 240.00 [lb_av] MEDEN T ([facility], ) Body height 65 [in_i] 65 [in_i] MEDENT ([facility] ) 5'5" Respiratory rate 14 /min 14 /min MEDENT ( [facility]) Heart rate 70 /min 70 /min MEDENT ([facility] ) Diastolic blood pressure 80 mm[Hg] 80 mm[Hg] MEDENT ([facility] ) Systolic blood pressure 130 mm[Hg] 130 mm[Hg] M EDENT ([facility] ) Diastolic blood pressure 88 mm[Hg] 88 mm[Hg] eCW1 ([facility]) Systolic blood pressure 134 mm[Hg] 134 mm[Hg] e CW1 ([facility]) Body temperature 96.7 [degF] 96.7 [degF] eCW1 ( [facility]) Respiratory rate 20 /min 20 /min eCW1 ([facility]) Heart rate 100 /min 100 /min eCW1 ([facility]) Body mass index (BMI) [Ratio] 44.81 kg/m2 44.81 kg/m2 eCW1 ([facility]) Body height 62 [in_i] 62 [in_i] eCW1 ([facility]) Body weight 245 [lb_av] 245 [lb_av] eCW1 ([facility]) Body temperature 96.7 [degF] 96.7 [degF] eCW1 ( [facility]) Respiratory rate 18 /min 18 /min eCW1 ([facility]) Heart rate 73 /min 73 /min eCW1 ([facility]) Body mass index (BMI) [Ratio] 44.73 kg/m2 44.73 kg/m2 eCW1 ([facility]) Body height 62 [in_i] 62 [in_i] eCW1 ([facility]) Body weight 244.6 [lb_av] 244.6 [lb_av] eCW1 ([facility]) Diastolic blood pressure 80 mm[Hg] 80 mm[Hg] eCW1 ([facility]) Systolic blood pressure 130 mm[Hg] 130 mm[Hg] e CW1 ([facility]) Body temperature 98.3 [degF] 98.3 [degF] eCW1 ( [facility]) Respiratory rate 18 /min 18 /min eCW1 ([facility]) Heart rate 98 /min 98 /min eCW1 ([facility]) Body mass index (BMI) [Ratio] 44.66 kg/m2 44.66 kg/m2 eCW1 ([facility]) Body height 62 [in_i] 62 [in_i] eCW1 ([facility]) Body weight 244.2 [lb_av] 244.2 [lb_av] eCW1 ([facility]) Diastolic blood pressure 80 mm[Hg] 80 mm[Hg] eCW1 ([facility]) Systolic blood pressure 142 mm[Hg] 142 mm[Hg] e CW1 ([facility]) Body temperature 97.9 [degF] 97.9 [degF] eCW1 ( [facility]) Respiratory rate 18 /min 18 /min eCW1 ([facility]) Heart rate 104 /min 104 /min eCW1 ([facility]) Body mass index (BMI) [Ratio] 44.44 kg/m2 44.44 kg/m2 eCW1 ([facility]) Body height 62 [in_i] 62 [in_i] eCW1 ([facility]) Body weight 243 [lb_av] 243 [lb_av] eCW1 ([facility]) Diastolic blood pressure 72 mm[Hg] 72 mm[Hg] eCW1 ([facility]) Systolic blood pressure 122 mm[Hg] 122 mm[Hg] e CW1 ([facility]) Body temperature 97.5 [degF] 97.5 [degF] eCW1 ( [facility]) Respiratory rate 18 /min 18 /min eCW1 ([facility]) Heart rate 113 /min 113 /min eCW1 ([facility]) Body mass index (BMI) [Ratio] 45.35 kg/m2 45.35 kg/m2 eCW1 ([facility]) Body height 62 [in_i] 62 [in_i] eCW1 ([facility]) Body weight 248 [lb_av] 248 [lb_av] eCW1 ([facility]) Diastolic blood pressure 68 mm[Hg] 68 mm[Hg] eCW1 ([facility]) Systolic blood pressure 118 mm[Hg] 118 mm[Hg] e CW1 ([facility]) Body temperature 96.4 [degF] 96.4 [degF] eCW1 ( [facility]) Respiratory rate 18 /min 18 /min eCW1 ([facility]) Heart rate 95 /min 95 /min eCW1 ([facility]) Body mass index (BMI) [Ratio] 43.42 kg/m2 43.42 kg/m2 eCW1 ([facility]) Body height 62 [in_us] 62 [in_us] eCW1 ([facility]) Body weight Measured 237.4 [lb_av] 237.4 [lb_av ] eCW1 ([facility]) Diastolic blood pressure 89 mm[Hg] 89 mm[Hg] eCW1 ([facility]) Systolic blood pressure 140 mm[Hg] 140 mm[Hg] e CW1 ([facility]) Body temperature 97.5 [degF] 97.5 [degF] eCW1 ( [facility]) Respiratory rate 18 /min 18 /min eCW1 ([facility]) Heart rate 82 /min 82 /min eCW1 ([facility]) Body mass index (BMI) [Ratio] 43.27 kg/m2 43.27 kg/m2 eCW1 ([facility]) Body height 62 [in_us] 62 [in_us] eCW1 ([facility]) Body weight Measured 236.6 [lb_av] 236.6 [lb_av ] eCW1 ([facility]) Diastolic blood pressure 62 mm[Hg] 62 mm[Hg] eCW1 ([facility]) Systolic blood pressure 131 mm[Hg] 131 mm[Hg] e CW1 ([facility]) Body temperature 97.5 [degF] 97.5 [degF] eCW1 ( [facility]) Respiratory rate 18 /min 18 /min eCW1 ([facility]) Heart rate 110 /min 110 /min eCW1 ([facility]) Body mass index (BMI) [Ratio] 43.89 kg/m2 43.89 kg/m2 eCW1 ([facility]) Body height 62 [in_us] 62 [in_us] eCW1 ([facility]) Body weight Measured 240.0 [lb_av] 240.0 [lb_av ] eCW1 ([facility]) Patient Treatment Plan of Care Planned Activity Planned Date Details Description Data Source (s) doxycycline hyclate 100 MG Oral Capsule 05/01/2020 12:00:00 AM EST eCW1 ([facility]) topiramate 50 MG Oral Tablet 05/01/2020 12:00:00 AM EST [facility] doxycycline hyclate 100 MG Oral Capsule 05/01/2020 12:00:00 AM EST eCW1 ([facility]) Sumatriptan 100 MG Oral Tablet 04/22/2020 12:00:00 AM EST [facility] Oxycodone Hydrochloride 5 MG Oral Tablet 04/21/2020 12:00:00 AM EST eCW1 ([facility]) Alprazolam 0.5 MG Oral Tablet 04/04/2020 12:00:00 AM EST [facility] Metoprolol Tartrate 25 MG Oral Tablet 03/30/2020 12:00:00 AM EST [facility] Oxycodone Hydrochloride 5 MG Oral Tablet 03/27/2020 12:00:00 AM EST eCW1 ([facility]) Verapamil hydrochloride 80 MG Oral Tablet 03/27/2020 12:00:00 AM [facility] Prednisone 20 MG Oral Tablet 03/13/2020 12:00:00 AM EST eCW1 ([facility]) Prednisone 20 MG Oral Tablet 03/13/2020 12:00:00 AM EST eCW1 ([facility]) Furosemide 20 MG Oral Tablet 03/11/2020 12:00:00 AM EST [facility] Oxycodone Hydrochloride 5 MG Oral Tablet 02/28/2020 12:00:00 AM EST eCW1 ([facility]) Oxycodone Hydrochloride 5 MG Oral Tablet 02/28/2020 12:00:00 AM EST eCW1 ([facility]) Oxycodone Hydrochloride 5 MG Oral Tablet 02/28/2020 12:00:00 AM EST eCW1 ([facility]) Oxycodone Hydrochloride 5 MG Oral Tablet 01/27/2020 12:00:00 AM EDT eCW1 ([facility]) Oxycodone Hydrochloride 5 MG Oral Tablet 01/27/2020 12:00:00 AM EDT eCW1 ([facility]) Oxycodone Hydrochloride 5 MG Oral Tablet 01/27/2020 12:00:00 AM EDT eCW1 ([facility]) Verapamil hydrochloride 80 MG Oral Tablet 01/19/2020 12:00:00 AM ED T eCW1 ([facility]) Verapamil hydrochloride 80 MG Oral Tablet 01/19/2020 12:00:00 AM ED T eCW1 ([facility]) Verapamil hydrochloride 80 MG Oral Tablet 01/19/2020 12:00:00 AM ED T eCW1 ([facility]) atorvastatin 40 MG Oral Tablet 12/08/2019 12:00:00 AM EDT [facility] Oxycodone Hydrochloride 5 MG Oral Tablet 10/20/2019 12:00:00 AM EDT eCW1 ([facility]) Oxycodone Hydrochloride 5 MG Oral Tablet 10/20/2019 12:00:00 AM EDT eCW1 ([facility]) Oxycodone Hydrochloride 5 MG Oral Tablet 09/20/2019 12:00:00 AM EDT eCW1 ([facility]) Oxycodone Hydrochloride 5 MG Oral Tablet 08/19/2019 12:00:00 AM EDT eCW1 ([facility]) Oxycodone Hydrochloride 5 MG Oral Tablet 07/21/2019 12:00:00 AM EDT eCW1 ([facility]) Blood Glucose System Binu - 07/01/2019 12:00:00 AM EDT eCW1 ([facility]) One Touch Ultra Test Strips 1 06/30/2019 12:00:00 AM EDT eCW1 ([facility]) Lancets 1 06/30/2019 12:00:00 AM EDT e CW1 ([facility]) Dicyclomine Hydrochloride 10 MG Oral Capsule [facility] Acetaminophen 325 MG / Hydrocodone Bitartrate 5 MG Oral Tablet [facility] atorvastatin 80 MG Oral Tablet [facility] meloxicam 15 MG Oral Tablet [facility]
[2020-05-31 17:59] LABS: BASO % 0.4 % (0.0-1.0); EOS # 0.2 10^3/uL (0.0-0.5); EOS % 2.3 % (0.0-3.0); HEMOGLOBIN 15.3 g/dl (12.0-15.5); LYMPH # 1.6 10^3/uL (1.5-5.0); LYMPH % 22.7 % (24.0-44.0); MEAN CORPUSCULAR HEMOGLOBIN 28.1 pg (27.0-33.0); MEAN CORPUSCULAR HGB CONC 32.6 g/dl (32.0-36.5); MEAN CORPUSCULAR VOLUME 86.2 fl (80.0-96.0); MONO # 0.6 10^3/uL (0.0-0.8); MONO % 8.3 % (2.0-8.0); NEUTROPHILS # 4.5 10^3/uL (1.5-8.5); PLATELET COUNT, AUTOMATED 318 10^3/uL (150-450); RED BLOOD COUNT 5.45 10^6/uL (4.00-5.40); WHITE BLOOD COUNT 6.9 10^3/uL (4.0-10.0)
[2020-05-31 18:15] LABS: ALBUMIN 3.6 GM/DL (3.2-5.2); ALT/SGPT 63 U/L (12-78); BILIRUBIN,DIRECT < 0.1 MG/DL (0.0-0.2); BILIRUBIN,TOTAL 0.4 MG/DL (0.2-1.0); BLOOD UREA NITROGEN 19 MG/DL (7-18); CALCIUM LEVEL 8.8 MG/DL (8.5-10.1); CARBON DIOXIDE LEVEL 25 MEQ/L (21-32); CHLORIDE LEVEL 108 MEQ/L (98-107); CREATININE FOR GFR 0.77 MG/DL (0.55-1.30); GLOMERULAR FILTRATION RATE > 60.0 (>58); GLUCOSE, FASTING 117 MG/DL (70-100); LIPASE 77 U/L (73-393); POTASSIUM SERUM 3.4 MEQ/L (3.5-5.1); SODIUM LEVEL 140 MEQ/L (136-145); TOTAL PROTEIN 7.2 GM/DL (6.4-8.2)
[2020-05-31] MEDS ORDERED: NS 1,000 ML IV ONE (18:25)
[2020-05-31] MEDS ORDERED: ISOVUE-370 76% 100ML VIAL As Ordered ONE (18:32)
--- NOTE | 2020-05-31 19:27 | REPVR ---
PROCEDURE INFORMATION: Exam: CT Abdomen And Pelvis With Contrast Exam date and time: 05/31/2020 6:38 PM Age: 44 years old Clinical indication: Abdominal pain; Additional info: Severe rlq pain, nvd TECHNIQUE: Imaging protocol: Computed tomography of the abdomen and pelvis with contrast. Radiation optimization: All CT scans at this facility use at least one of these dose optimization techniques: automated exposure control; mA and/or kV adjustment per patient size (includes targeted exams where dose is matched to clinical indication); or iterative reconstruction. Contrast material: ISO 370; Contrast volume: 100 ml; Contrast route: INTRAVENOUS (IV); COMPARISON: CT ABD/PEL W/IV ORAL CONTRAS 05/11/2020 2:20 PM FINDINGS: Lungs: Discoid atelectasis or scar in the left lower lobe. Liver: The liver is low in density. The liver measures at least 16 cm in craniocaudal span. Gallbladder and bile ducts: Surgical clips in the gallbladder fossa. The gallbladder is absent. Pancreas: Normal. No ductal dilation. Spleen: Normal. No splenomegaly. Adrenal glands: Normal. No mass. Kidneys and ureters: Normal. No hydronephrosis. Stomach and bowel: The scattered sigmoid diverticula. No evidence of obstruction. No diverticulitis. Appendix: No evidence of appendicitis. Intraperitoneal space: Unremarkable. No free air. No significant fluid collection. Vasculature: Unremarkable. No abdominal aortic aneurysm. Lymph nodes: Unremarkable. No enlarged lymph nodes. Urinary bladder: Unremarkable as visualized. Reproductive: The uterus is absent. Bones/joints: Compression fracture of L1 30% loss of height and no change from previous Soft tissues: Supraumbilical abdominal hernia containing fat with the hernia sac measuring 2.4 cm in diameter and demonstrating no signs of strangulation. IMPRESSION: 1. No acute findings. 2. Stable supraumbilical midline abdominal hernia with no signs of strangulation 3. Hepatic steatosis. 4. Scattered colonic diverticula. No diverticulitis. 5. Stable compression fracture of L1. Electronically signed by: Lara Lucero On 05/31/2020 19:27:28 PM
[2020-05-31] MEDS ORDERED: KETOROLAC 30 MG/ML 1ML VIAL IV ONE (20:10)
[2020-05-31 20:43] VITALS: BP 131/73
== END 2020-05-31 21:07 | disposition home or self-care (01) ==
LOC: M ED 15:47
DX: S32.010A Wedge compression fracture of first lumbar vertebra, initial encounter for closed fracture (principal); X58.XXXA Exposure to other specified factors, initial encounter; Y92.9 Unspecified place or not applicable; Y93.9 Activity, unspecified; Y99.9 Unspecified external cause status; K42.9 Umbilical hernia without obstruction or gangrene; R11.2 Nausea with vomiting, unspecified; R19.7 Diarrhea, unspecified; R10.31 Right lower quadrant pain; E11.9 Type 2 diabetes mellitus without complications; K80.20 Calculus of gallbladder without cholecystitis without obstruction; F41.9 Anxiety disorder, unspecified; F31.89 Other bipolar disorder; G43.909 Migraine, unspecified, not intractable, without status migrainosus; K58.9 Irritable bowel syndrome, unspecified; Z87.01 Personal history of pneumonia (recurrent); Z87.448 Personal history of other diseases of urinary system; Z98.61 Coronary angioplasty status; K76.0 Fatty (change of) liver, not elsewhere classified; K57.30 Diverticulosis of large intestine without perforation or abscess without bleeding; Z79.899 Other long term (current) drug therapy; Z88.1 Allergy status to other antibiotic agents
CPT/HCPCS: 74177; 80048; 80076; 81001; 83690; 85025; 87086; 96361; 96374; 99284; G0463; J1885; Q9967

== ENCOUNTER → 2020-06-09 | Outpatient (CLI) | payer OTHER, MEDICAID ==
[~2020-06-09] MED LIST changes: +TOPI200T7
--- NOTE | 2020-06-09 16:22 | REPMRS ---
Patient History The patient states she has not had a clinical breast exam in over a year. Patient is postmenopausal. No known family history of cancer. Took estrogen for 18 years. 3D TOMOSYNTHESIS WAS PERFORMED. [facility] for [facility] 4.3%. Volpara breast density a. Digital Woman Screen Mammo: June 09, 2020 - Exam #: [id number] Bilateral CC and MLO view(s) were taken. Technologist: Sarai Vergara, Technologist Prior study comparison: September 04, 2017, digital woman screen mammo performed at [facility]. June 12, 2016, digital woman screen mammo performed at [facility]. FINDINGS: There are scattered fibroglandular densities. There has been no change in the appearance of the mammogram from the prior studies. There is a mild amount of residual fibroglandular tissue which is fairly symmetric. There is no interval development of dominant mass, architectural distortion, or clustered microcalcification suggestive of malignancy. Assessment: BI-RADS/ACR category 1 mammogram. Negative Mammogram. Recommendation Routine screening mammogram in 1 year (for women over age 40). This mammogram was interpreted with the aid of an FDA-approved computer-aided dectection system. Electronically Signed By: Karthik Grossman MD 06/09/20 [id number]
== END ==
LOC: M WHC 12:35
PROVIDERS: ATTEND Nurse Practitioner Family
DX: Z12.31 Encounter for screening mammogram for malignant neoplasm of breast (principal)

== ENCOUNTER 2020-08-20 19:44 | Emergency (ER) | payer OTHER, MEDICAID ==
[~2020-08-20] VITALS: Ht 165.1 cm; Wt 106.6 kg
[2020-08-20] MEDS ORDERED: PHENAZOPYRIDINE 100 MG TAB PO ONE (23:05)
[2020-08-20] MEDS ORDERED: NITROFURANTOIN (MACROBID) 100 MG CAP PO ONE (23:05)
[2020-08-20] MEDS ORDERED: MACR100C43 PO (23:06)
[2020-08-20] MEDS ORDERED: PYRI1TAB5 PO (23:06)
[2020-08-20 23:29] VITALS: BP 142/64
== END 2020-08-20 23:33 | disposition home or self-care (01) ==
LOC: M ED 19:44
DX: N30.00 Acute cystitis without hematuria (principal); N93.9 Abnormal uterine and vaginal bleeding, unspecified; Z98.61 Coronary angioplasty status; G43.909 Migraine, unspecified, not intractable, without status migrainosus; I10 Essential (primary) hypertension; E78.00 Pure hypercholesterolemia, unspecified; J45.909 Unspecified asthma, uncomplicated; G47.30 Sleep apnea, unspecified; Z87.01 Personal history of pneumonia (recurrent); K21.9 Gastro-esophageal reflux disease without esophagitis; K58.9 Irritable bowel syndrome, unspecified; Z87.442 Personal history of urinary calculi; Z87.440 Personal history of urinary (tract) infections; M54.9 Dorsalgia, unspecified; E11.9 Type 2 diabetes mellitus without complications; F41.9 Anxiety disorder, unspecified; F31.89 Other bipolar disorder; Z79.899 Other long term (current) drug therapy; Z88.8 Allergy status to other drugs, medicaments and biological substances

== ENCOUNTER → 2020-08-25 | Outpatient (REF) | payer OTHER, MEDICAID ==
[~2020-08-25] MED LIST changes: +PYRI1TAB5 PO
== END ==
LOC: M LAB REF 11:42
PROVIDERS: ATTEND Family Medicine
DX: R30.0 Dysuria (principal)

== ENCOUNTER → 2020-10-12 | Outpatient (CLI) | payer OTHER, MEDICAID ==
[2020-10-12 11:18] LABS: BASO % 0.5 % (0.0-1.0); EOS # 0.2 10^3/uL (0.0-0.5); HEMATOCRIT 43.6 % (36.0-47.0); HEMOGLOBIN 13.8 g/dl (12.0-15.5); LYMPH # 1.8 10^3/uL (1.5-5.0); LYMPH % 32.3 % (24.0-44.0); MEAN CORPUSCULAR HEMOGLOBIN 27.8 pg (27.0-33.0); MEAN CORPUSCULAR HGB CONC 31.7 g/dl (32.0-36.5); MEAN CORPUSCULAR VOLUME 87.9 fl (80.0-96.0); MONO # 0.5 10^3/uL (0.0-0.8); MONO % 8.8 % (2.0-8.0); NEUTROPHILS # 3.1 10^3/uL (1.5-8.5); NEUTROPHILS % 55.2 % (36.0-66.0); PLATELET COUNT, AUTOMATED 278 10^3/uL (150-450); RED BLOOD COUNT 4.96 10^6/uL (4.00-5.40); WHITE BLOOD COUNT 5.7 10^3/uL (4.0-10.0)
[2020-10-12 11:45] LABS: ERYTHROCYTE SEDIMENTATION RATE 23 mm/hr (0-20)
[2020-10-12 12:14] LABS: ALBUMIN 3.2 GM/DL (3.2-5.2); ALT/SGPT 101 U/L (12-78); BILIRUBIN,DIRECT < 0.1 MG/DL (0.0-0.2); BILIRUBIN,TOTAL 0.3 MG/DL (0.2-1.0); C REACTIVE PROTEIN QUANTITATIV 0.66 MG/DL (0.00-0.30); TOTAL PROTEIN 7.1 GM/DL (6.4-8.2)
[2020-10-14 01:11] LABS: IGASUB2 316.7 mg/dL (73.2-301.2); IGASUB3 48.5 mg/dL (13.4-97.9); IgA SERUM (part of Subclasses) 393 mg/dL (87-352); TISSUE TRANSGLUTAMINASE IgA <2 U/mL (0-3)
== END ==
LOC: M LAB 10:09
PROVIDERS: ATTEND Internal Medicine Gastroenterology
DX: R19.7 Diarrhea, unspecified (principal)

== ENCOUNTER → 2021-01-13 | Outpatient (CLI) | payer OTHER, MEDICAID ==
[~2021-01-13] MED LIST changes: +CETI-24 PO; -QUET50TA3; +QUET50TA4; -TOPI200T7; +TOPI200T7 PO
== END ==
LOC: M LABSMTC 10:23
PROVIDERS: ATTEND Anesthesiology
DX: Z01.812 Encounter for preprocedural laboratory examination (principal); Z20.822 Contact with and (suspected) exposure to COVID-19

== ENCOUNTER → 2021-01-17 | Outpatient (REF) | payer OTHER, MEDICAID ==
[~2021-01-17] MED LIST changes: -CYMB60CA3 PO; +CYMB60CA4 PO; +VENTAER INH
== END ==
LOC: M SFHCWAGY 13:01
PROVIDERS: ATTEND Nurse Practitioner Women's Health
DX: N39.41 Urge incontinence (principal)
CPT/HCPCS: 87086; G0463

== ENCOUNTER 2021-01-18 11:51 | Day surgery (SDC) | payer OTHER, MEDICAID ==
[~2021-01-18] VITALS: Ht 162.6 cm; Wt 105.7 kg
[~2021-01-18 11:51] MED LIST changes: +NS 1,000 ML IV ONE; -VENTAER INH
--- OUTSIDE RECORDS SUMMARY | 2021-01-18 11:56 | CCD | Continuity of Care Document ---
Author Author Renea SALINAS M.D. Organization Unknown Address [address] [place] [address] Phone [phone] Care Team Providers Care Milling General Superintendent Name Role Phone Gladys Salinas MD AUTM [phone] [facility] AUTM Problems Active Problems Provider Date Mixed hyperlipidemia Regina Gagnon PA Onset: Essential hypertension Regina Gagnon PA Onset: 0 06/19/2020 Gastroesophageal reflux disease Gladys Salinas M.D. Ons et: 11/15/2020 Prediabetes Gladys Salinas M.D. Onset: 11/17/19 21 Social History Type Date Description Comments Sex Unknown Tobacco Use Start: Unknown Never Used Smokeless Tobacco ETOH Use Denies alcohol use Tobacco Use Start: Unknown Patient has never smoked Recreational Drug Use Never Used Drugs Smoking Status Reviewed: 12/15/20 Patient has never smoked Exercise Type/Frequency Exercises regularly walk s Tattoo/Piercing Pierced ears Seat Belt/Car Seat Always uses seat belt Smoke Alarms Yes Smoke Alarms Carbon Monoxide Detector: Yes Allergies, Adverse Reactions, Alerts Active Allergies Criticality Reaction | Severity Comments Date NKDA Unable to assess criticality 05/17/2020 Cats Unable to assess criticality 05/17/2020 Dust Unable to assess criticality 05/17/2020 Hay Fever Unable to assess criticality 05/17/2020 Medications Active Medications SIG Qnty Indications Ordering Provide r Date Fluticasone Propionate/Salmeterol Diskus 250-50mcg/Dose Aerosol inhale one puff by mouth twice a day 60units Gladys Salinas M.D. 11/15/2020 Montelukast Sodium 10mg Tablets 1 by mouth every day 90tabs Unknown Topiramate 200mg Tablets o ne tab at hs Unknown Verapamil HCL 80mg Tablets 1 by mouth three times a day 270tabs Unknown Sumatriptan Succinate 100mg Tablet s one tab by mouth at onset of headache, repeat once in one hour if needed [facility] Acetaminophen 500mg Tablets 1-2 tablets three times a day as needed Unknown Oxycodone HCL 5mg Capsules 1 cap by mouth every 6 hours as needed for ankle pain. avoid daily use. 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 FNP Metoprolol Tartrate 25mg Tablets take one tablet by mouth twice a day [facility] Pantoprazole Sodium 40mg Tablets D R take one tablet by mouth bid 180tabs Unknown Robaxin-750 750mg Tablets take one by mouth every 8 hours as needed [facility] Duloxetine HCL 60mg Caps DR Part 1 by mouth every day 90caps Gladys Salinas M.D. Gabapentin 300mg Capsules 1 tablet 3 times a day for neck pain [facility] Albuterol Sulfate (2 .5mg/3ML) 0.083% Nebulizer 1 unit dose ampule in nebulizer and inha led up to 4 times a day for coughing and wheezing 75ml Gladys Salinas M.D. Albuterol Sulfate HFA 108(90Base) mcg/Act Aerosol inhale 2 puffs by mouth every 4 hours as needed 25.5gm Gladys Salinas M.D. Furosemide 20mg Tablets take one tablet by mouth every day in the morning Kristopher Wilcox FACC 0 Atorvastatin Calcium 40mg Tablets take one tablet by mouth every day for cholesterol 90tabs Unknow n Zyrtec Allergy 10mg Capsules 1 by mouth every day 90caps Unknown History Medications Tobramycin 0.3% Solution 2 drops both eyes three times a day for 5 days 1units H10.33 Gladys Salinas M.D. 12/12/2020 - 12/17/2020 Ciprofloxacin HCL 500mg Tablets 1 by mouth twice a day 14tabs R30.0 Gladys Salinas M.D. 021 - 09/01/2020 Nitrofurantoin Monohyd Macro 100mg Capsules take 1 tablet twice a day for 7 days Unkn own 08/20/2020 - 08/25/2020 Immunizations CPT Code Status Date Vaccine Lot # [id number] Given 08/15/2020 Moderna Sars-(Co vid-19) vaccine, mRNA, LNP-S, PF, 100 mcg/ 0.5 mL [id number] Given 07/18/2020 Moderna Sars-(Co vid-19) vaccine, mRNA, LNP-S, PF, 100 mcg/ 0.5 mL [id number] Given 05/03/2020 Influenza Virus, quadravalent, age 6 Mo and up,Preservative free Vital Signs Date Vital Result Comment 12/15/2020 12:19pm BP Systolic 132 mmHg BP Diastolic 93 mmHg BP Systolic Recheck 119 mmHg BP Diastolic Recheck 75 mmHg Heart Rate 78 /min Body Temperature 97.5 F Respiratory Rate 16 /min Height 61.50 inches 5'1.50" Weight 236.50 lb O2 % BldC Oximetry 98 % Peak Expiratory Flow Rate 338 Estimated Peak Flow Rate [place] Body Weight 105 lb BMI (Body Mass Index) 44.0 kg/m2 12/12/2020 1:56pm BP Systolic 123 mmHg BP Diastolic 80 mmHg Heart Rate 76 /min Body Temperature 97.3 F Respiratory Rate 16 /min Height 61.50 inches 5'1.50" Weight 236.00 lb Peak Expiratory Flow Rate 338 Estimated Peak Flow Rate [place] Body Weight 105 lb BMI (Body Mass Index) 43.9 kg/m2 Results Test Acquired Date Facility Test Result H/L Range Note Coronavirus 2019 Nasopharygeal 01/13/2021 [place] [address] [phone] Coronavirus 2019 Nasopharygeal ASSAY INFORMATIO <SEE N OTE> 1 Clostridium Difficle By PCR 10/12/2020 [place] [address] [phone] Clostridium Difficile PCR TNP Normal Negati ve Nap1 027 For Cdiff PCR TNP Normal Negative 2 Laboratory test finding 10/12/2020 [place] [address] [phone] Stool Lactoferrin-polys by Ica NEGATIVE Normal 3 Fat Fecal Qualitative 10/12/2020 [place] [address] [phone] Fats Neutral Normal Normal . 4 Fats Total Normal Normal . 5 Laboratory test finding 10/12/2020 [place] [address] [phone] Pancreatic Elastase Stool >500 Normal >200 6 Laboratory test finding 10/12/2020 [place] [address] [phone] Tissue Transglutaminase IgA <2 U/mL Normal 0-3 7 Iga Subclasses 10/12/2020 [place] [address] [phone] IgA Serum (part of Subclasses) 393 mg/dL High 8 7-352 Igasub2 316.7 mg/dL High 73.2-301.2 Igasub3 48.5 mg/dL Normal 13.4-97.9 CBC With Differential 10/12/2020 [place] [address] [phone] White Blood Count 5.7 10 Normal 4.0-10.0 Red Blood Count 4.96 10 Normal 4.00-5.40 Hemoglobin 13.8 g/dL Normal 12.0-15.5 Hematocrit 43.6 % Normal 36.0-47.0 Mean Corpuscular Volume 87.9 fl Normal 80.0-96.0 Mean Corpuscular Hemoglobin 27.8 pg Normal 27.0-33.0 Mean Corpuscular HGB Conc 31.7 g/dL Low 32.0-36.5 Red Cell Distribution Width 12.9 % Normal 11.5-14.5 Platelet Count, Automated 278 10 Normal 150-450 Neutrophils % 55.2 % Normal 36.0-66.0 Lymph % 32.3 % Normal 24.0-44.0 Ponce % 8.8 % High 2.0-8.0 Eos % 3.0 % Normal 0.0-3.0 Baso % 0.5 % Normal 0.0-1.0 Immature Granulocyte % 0.2 % Normal 0-3.0 Nucleated Red Blood Cell % 0.0 % Normal 0-0 Neutrophils # 3.1 10 Normal 1.5-8.5 Lymph # 1.8 10 Normal 1.5-5.0 Ponce # 0.5 10 Normal 0.0-0.8 Eos # 0.2 10 Normal 0.0-0.5 Baso # 0.0 10 Normal 0.0-0.2 Laboratory test finding 10/12/2020 [place] [address] [phone] Erythrocyte Sedimentation Rate 23 mm/hr High 0 -20 Liver Profile 10/12/2020 [place] [address] [phone] Ast/Sgot 32 U/L Normal 7-37 Alt/SGPT 101 U/L High 12-78 Alkaline Phosphatase 123 U/L High 45-117 Bilirubin,Total 0.3 mg/dL Normal 0.2-1.0 Bilirubin,Direct < 0.1 mg/dL Normal 0.0-0.2 Total Protein 7.1 GM/DL Normal 6.4-8.2 Albumin 3.2 GM/DL Normal 3.2-5.2 Albumin/Globulin Ratio 0.8 Low 1.2-2.2 Laboratory test finding 10/12/2020 [place] [address] [phone] C Reactive Protein Quantitativ 0.66 mg/dL High 0 .00-0.30 Laboratory test finding 08/25/2020 [facility] [phone] Urine Culture FULL REPORT IN L <SEE NOTE> Normal 8 Ua W/ Reflex To Culture 08/20/2020 [place] [address] [phone] Appearance, Urine RFX CLOUDY High Clear Color, Urine RFX RADHA Normal Yellow PH,Urine RFX 5.0 units Normal 5.0-9.0 Specific [place] Ur Auto RFX 1.029 Normal 1.002-1.035 Protein, Urine Auto RFX 2+ mg/dL High Negative Glucose, Urine (Ua) Auto RFX NEGATIVE mg/dL Normal Negative Ketone, Urine Auto RFX NEGATIVE mg/dL Normal Negative Urobilinogen, Urine Auto RFX 2.0 mg/dL High 0.0-2.0 Bilirubin, Urine Auto RFX NEGATIVE Normal Negative Nitrite, Urine Auto RFX NEGATIVE Normal Negative Leukocyte Esterase Ur Auto RFX 3+ High Negative Blood, Urine Blood RFX 2+ High Negative WBC, Urine Auto RFX 24 /HPF High 0-3 RBC, Urine Auto RFX 10 /HPF High 0-3 Bacteria, Urine Auto RFX 1+ High Negative Squam Epithelial Cell Ur Aurfx 29 /HPF Normal 0-6 Mucus, Urine RFX SMALL Normal Negative Hyaline Cast, Urine Auto RFX 0 /LPF Normal 0-1 Reflex Urine Culture 08/20/2020 Patient Service [facility] [place] [address] [phone] Reflex Urine Culture FULL REPORT IN L <SEE NOTE> Norm al 9 1 ASSAY INFORMATION: Real Time RT-PCR NOTE: The COVID-19 assay has been cleared by the U.S. Food and Drug Administration under the Emergency Use Authorization (EUA). [facility] and [employer] [facility] [employer] are designated as high complexity laboratories by the Clinical Laboratory Improvement Amendments of 1988(CLIA) and are qualified to perform this test. Not Detected 2 Clostridium difficile testin g will only be performed on unformed diarrhea stools. Only one specimen will be tested daily. Testing stool specimens from patients who do not have CDI symptoms detects asymptomatic colonized patients (up to 30% of hospitalized patients are colonized with C. difficile). Patients with false positive results may be given unnecessary treatment, placed on contact isolation, and be at increased risk of vancomycin resistant enterococci. Please contact Infectious Disease Specialist with questions. 3 4 Normal (<60 Droplets/HPF) 5 Normal (<100 Droplets/HPF) 6 Result Units: ug Elast./g Severe Pancreatic Insufficiency: <100 Moderate Pancreatic Insufficiency: 100 - 200 Normal: >200 Performed at: - [facility] [id number] Explosives Worker: Yarely Torres MD, Phone: [phone] Performed at: - [facility] [id number] Explosives Worker: Thor Escobar MD, Phone: [phone] 7 Negative 0 - 3 Weak Positive 4 - 10 Positive >10 . Tissue Transglutaminase (tTG) has been identified as the endomysial antigen. Studies have demonstr- ated that endomysial IgA antibodies have over 99% specificity for gluten sensitive enteropathy. Performed at: [facility] [id number] Explosives Worker: Yarely Torres MD, Phone: [phone] Performed at: [facility] [id number] Explosives Worker: Thor Escobar MD, Phone: [phone] FULL REPORT IN LAB NOTES ([facility]). SPECIMEN APPEARS CONTAMINATED 9 FULL REPORT IN LAB NOTES ([facility]). SPECIMEN APPEARS CONTAMINATED Procedures Date Code Description Status 12/15/2020 14445 Office/Outpatient Established Lo w MDM 20-29 Min Completed 12/12/2020 17432 Office/Outpatient Established Lo w MDM 20-29 Min Completed 11/15/2020 32739 Office/Outpatient Established Mo d MDM 30-39 Min Completed 08/29/2020 36578 Office/Outpatient Established SF MDM 10-19 Min Completed 08/25/2020 61662 Office/Outpatient Established Mo d MDM 30-39 Min Completed 08/15/2020 99119 Office/Outpatient Established Mo d MDM 30-39 Min Completed Medical Devices Description No Information Available Encounters Type Date Location Provider Dx Diagnosis Office Visit 12/15/2020 12:15p Main Office Eden Camara FNP M19.0 71 Primary osteoarthritis, right ankle and foot J45.40 Moderate persistent asthma, uncomplicated Office Visit 12/12/2020 2:00p Main Office Gladys Salinas M.D. H 10.33 Unspecified acute conjunctivitis, bilateral Office Visit 11/15/2020 11:15a Main Office Gladys Salinas M.D. I 10 Essential (primary) hypertension R73.01 Impaired fasting glucose E78.2 Mixed hyperlipidemia K21.9 Gastro-esophageal reflux dis ease without esophagitis M19.071 Primary osteoarthritis, righ t ankle and foot J45.40 Moderate persistent asthma, uncomplicated Office Visit 08/29/2020 3:30p Main Office Gladys Salinas M.D. R 30.0 Dysuria I10 Essential (primary) hyperten charisse Office Visit 08/25/2020 10:45a Main Office Gladys Salinas M.D. R 30.0 Dysuria Office Visit 08/15/2020 1:30p Main Office Gladys Salinas M.D. I 10 Essential (primary) hypertension E78.2 Mixed hyperlipidemia R73.01 Impaired fasting glucose K21.9 Gastro-esophageal reflux dis ease without esophagitis M19.071 Primary osteoarthritis, righ t ankle and foot Assessments Date Code Description Provider 12/15/2020 M19.071 Primary osteoarthritis, right an kle and foot Eden Camara, [facility] 12/15/2020 J45.40 Moderate persistent asthma, unco mplicated PleEden valerio, [facility] 12/12/2020 H10.33 Unspecified acute conjunctivitis , bilateral Gladys Salinas M.D. 11/15/2020 I10 Essential (primary) hypertension Gladys Salinas M.D. 11/15/2020 R73.01 Impaired fasting glucose Gladys Haskins M.D. 11/15/2020 E78.2 Mixed hyperlipidemia Jacob Salinas M.D. 11/15/2020 K21.9 Gastro-esophageal reflux disease without esophagitis Gladys Salinas M.D. 11/15/2020 M19.071 Primary osteoarthritis, right an kle and foot Gladys Salinas M.D. 11/15/2020 J45.40 Moderate persistent asthma, unco mplicated Gladys Salinas M.D. 08/29/2020 R30.0 Dysuria Gladys Salinas M.D. 08/29/2020 I10 Essential (primary) hypertension Gladys Salinas M.D. 08/25/2020 R30.0 Dysuria Gladys Salinas M.D. 08/15/2020 I10 Essential (primary) hypertension Gladys Salinas M.D. 08/15/2020 E78.2 Mixed hyperlipidemia Jacob Salinas M.D. 08/15/2020 R73.01 Impaired fasting glucose Gladys Haskins M.D. 08/15/2020 K21.9 Gastro-esophageal reflux disease without esophagitis Gladys Salinas M.D. 08/15/2020 M19.071 Primary osteoarthritis, right an kle and foot Gladys Salinas M.D. Plan of Treatment Future Appointment(s):* 03/20/2021 1:15 pm - Eden Camara FNP at Main Office 12/15/2020 - Eden Camara FNP* M19.071 Primary osteoarthritis, right ankle and foot* Comments:* continue medications as prescribed * Follow up:* 3 months * J45.40 Moderate persistent asthma, uncomplicated* Comments:* doing well on current medications Functional Status Functional Condition Comment Date Status Bifocal glasses Active Independent with all ADL's Activ e Complete lower and upper and lower dentures Active Independent with all IADL's Acti ve Mental Status Mental Condition Comment Date Status Impaired Memory Active Trouble with reading, poor speller Active Referrals Description No Information Available
--- OUTSIDE RECORDS SUMMARY | 2021-01-18 11:57 | CCD ---
Continuity of Care Document (CCD) Created on: 11/08/2020 Renea Baez External Reference #: [id number] : [id number] Sex: Female Author Author Renea CEJA M.D. Organization Unknown Address [address] [place] [address], [address] [place] [address] Phone [phone] Care Team Providers Care Sexual Assault Counselor Name Role Phone Regina Gagnon AUTM [phone] Gladys Franz M.D. AUTM [phone] Problems Active Problems Provider Date Body mass index 40+ - severely obese Kim Morfin M.D. Onset: 06/10/2013 Morbid obesity Kim Morfin M.D. Onset: 09/2013 Acute upper respiratory infection, unspecified Kim Morfin M.D. Onset: 05/05/2015 Mild persistent asthma Kim Morfin M.D. Onset: 05/05/2015 Obstructive sleep apnea syndrome Odette Shaw Onset: 11/23/2013 Other Nonspecified Abnormal Finding Of Lung Field Kim Morfin M.D. Onset: 06/10/2013 Chronic pulmonary heart disease Masoud Shaw Onset: 06/10/2013 Sleep apnea Kim Morfin M.D. Onset: 09/2013 Gastroesophageal reflux disease Masoud Shaw Onset: 06/10/2013 Difficulty breathing Kim Morfin M.D. Onset: Allergic asthma without status asthmaticus Kim cook M.D. Onset: 06/10/2013 Social History Type Date Description Comments Sex Unknown ETOH Use Never used alcohol Tobacco Use Start: Unknown Patient has never smoked Allergies, Adverse Reactions, Alerts Active Allergies Reaction Severity Comments Date Percocet Hives 04/29/2017 Amitriptyline Hives 04/29/2017 Inactive Allergies NKDA 12/25/2011 NKDA 07/18/2016 Medications Active Medications SIG Qnty Indications Ordering Provide r Date Gabapentin 300mg Capsules 1ca p po tid Unknown Topiramate 50mg Tablets 2tabs po qd Unknown Verapamil HCL 80mg Tablets 1tab po tid Unknown Sumatriptan Succinate 100mg Tablet s 1tab po bid Unknown Acetaminophen 500mg Tablets 2tabs po q6h prn Unknown Oxycodone HCL 5mg Tablets 1tab po q6h prn Unknown Metoprolol Tartrate 25mg Tablets 1tab po bid Unknown Robaxin-750 750mg Tablets 1tab po q8h prn Unknown Duloxetine HCL 60mg Caps DR Part 1cap po qd Unknown Singulair 10mg Tablets 1tab p o qd Unknown Atorvastatin Calcium 40mg Tablets 1tab po qd Unknown Pantoprazole Sodium 40mg Tablets D R 1tab po bid Unknown Furosemide 20mg Tablets 1tab po qd Unknown Proair HFA 108(90Base) mcg/Act Aer osol prn Unknown Zyrtec Allergy 10mg Tablets 1tab po qd Unknown CPAP +6 LCW Unknown Albuterol Sulfate (2 .5mg/3ML) 0.083% Nebulizer 1 neb q4h prn Unknown Immunizations CPT Code Status Date Vaccine Lot # [id number] Given 01/29/2016 Influenza Virus Split 3 Yrs And Above For Intramuscular Use 26910 Given 02/06/2015 Influenza Virus Split 3 Yrs And Above For Intramuscular Use 55215 Given 04/29/2013 Pneumococcal PPSV23 22291 Given 04/29/2013 Influenza Virus Split 3 Yrs And Above For Intramuscular Use Vital Signs Date Vital Result Comment 10/11/2020 11:33am BP Systolic 130 mmHg BP Diastolic 88 mmHg Height 65 inches 5'5" Weight 230.00 lb BMI (Body Mass Index) 38.3 kg/m2 [place] Body Weight 125 lb Weight 104.328 kg BSA (Body Surface Area) 2.10 m2 06/06/2017 1:09pm BP Systolic 120 mmHg BP Diastolic 76 mmHg Heart Rate 86 /min O2 % BldC Oximetry 99 % Height 63 inches 5'3" Weight 230.00 lb BMI (Body Mass Index) 40.7 kg/m2 [place] Body Weight 115 lb Weight 104.328 kg BSA (Body Surface Area) 2.05 m2 Results Test Acquired Date Facility Test Result H/L Range Note Laboratory test finding 10/12/2020 [facility] Main Lab [address] [place] [address] [phone] Tissue Transglutaminase IgA <2 U/mL Normal 0-3 1 Iga Subclasses 10/12/2020 [facility] nter Main Lab [address] [place] [address] [phone] IgA Serum (part of Subclasses) 393 mg/dL High 8 7-352 Igasub2 316.7 mg/dL High 73.2-301.2 Igasub3 48.5 mg/dL Normal 13.4-97.9 CBC With Differential 10/12/2020 [facility] Main Lab [address] [place] [address] [phone] White Blood Count 5.7 10 Normal 4.0-10.0 [...] 36.0-66.0 Lymph % 32.3 % Normal 24.0-44.0 [place] % 8.8 % High 2.0-8.0 Eos % 3.0 % Normal 0.0-3.0 Baso % 0.5 % Normal 0.0-1.0 Immature Granulocyte % 0.2 % Normal 0-3.0 Nucleated Red Blood Cell % 0.0 % Normal 0-0 Neutrophils # 3.1 10 Normal 1.5-8.5 Lymph # 1.8 10 Normal 1.5-5.0 [place] # 0.5 10 Normal 0.0-0.8 Eos # 0.2 10 Normal 0.0-0.5 Baso # 0.0 10 Normal 0.0-0.2 Laboratory test finding 10/12/2020 [facility] Main Lab [address] [place] [address] [phone] Erythrocyte Sedimentation Rate 23 mm/hr High 0 -20 C Reactive Protein Quantitativ 0.66 mg/dL High 0.00-0.30 Liver Profile 10/12/2020 [facility] nter Main Lab [address] [place] [address] [phone] Ast/Sgot 32 U/L Normal 7-37 Alt/SGPT 101 U/L High 12-78 Alkaline Phosphatase 123 U/L High 45-117 Bilirubin,Total 0.3 mg/dL Normal 0.2-1.0 Bilirubin,Direct < 0.1 mg/dL Normal 0.0-0.2 Total Protein 7.1 GM/DL Normal 6.4-8.2 Albumin 3.2 GM/DL Normal 3.2-5.2 Albumin/Globulin Ratio 0.8 Low 1.2-2.2 Laboratory test finding 10/12/2020 [facility] Main Lab [address] [place] [address] [phone] Stool Lactoferrin-polys by Ica NEGATIVE Normal 2 Laboratory test finding 10/12/2020 [facility] Main Lab [address] [place] [address] [phone] Pancreatic Elastase Stool >500 Normal >200 3 Fat Fecal Qualitative 10/12/2020 [facility] Main Lab [address] [place] [address] [phone] Fats Neutral Normal Normal . 4 Fats Total Normal Normal . 5 Clostridium Difficle By PCR 10/12/2020 [facility] Main Lab [address] [place] [address] [phone] Clostridium Difficile PCR TNP Normal Negati ve Nap1 027 For Cdiff PCR TNP Normal Negative 6 1 Negative 0 - 3 Weak Positive 4 - 10 Positive >10 . Tissue Transglutaminase (tTG) has been identified as the endomysial antigen. Studies have demonstr- ated that endomysial IgA antibodies have over 99% specificity for gluten sensitive enteropathy. Performed at: [address] [id number] Firebrick Layer Helper: Yareyl Torres MD, Phone: [phone] Performed at: [address] [id number] Firebrick Layer Helper: Thor Escobar MD, Phone: [phone] 2 3 Result Units: ug Elast./g Severe Pancreatic Insufficiency: <100 Moderate Pancreatic Insufficiency: 100 - 200 Normal: >200 Performed at: [address] [id number] Firebrick Layer Helper: Yarely Torres MD, Phone: [phone] Performed at: [address] [id number] Firebrick Layer Helper: Thor Escobar MD, Phone: [phone] Normal (<60 Droplets/HPF) 5 Normal (<100 Droplets/HPF) 6 Clostridium difficile testin g will only be [...] Please contact Infectious Disease Specialist with questions. Procedures Date Code Description Status 10/11/2020 71783 Office/Outpatient New Moderate M DM 45-59 Minutes Completed Medical Devices Description No Information Available Encounters Type Date Location Provider Dx Diagnosis Office Visit 10/11/2020 10:30a [facility] Juanita Ceja M.D. R10.32 Left lower quadrant pain N94.10 Unspecified dyspareunia R11.0 Nausea R19.7 Diarrhea, unspecified Assessments Date Code Description Provider 10/11/2020 R10.32 Left lower quadrant pain Cachorro Ceja M.D. 10/11/2020 N94.10 Unspecified dyspareunia Marlyn Ceja M.D. 10/11/2020 R11.0 Nausea Nicolas Floyd ala, M.D. 10/11/2020 R19.7 Diarrhea, unspecified Nicolas Ceja M.D. Plan of Treatment No Information Available Functional Status Functional Condition Comment Date Status Independent with all ADL's Activ e Independent with all IADL's Acti ve Mental Status Mental Condition Comment Date Status Cognitive ability not impaired A ctive Referrals Refer to Dr Reason for Referral Status Appt Date Nicolas Ceja M.D. ABD PAIN Scheduled 10/11 [facility] [address] [facility], [address] [place] [address] [phone]
--- OUTSIDE RECORDS SUMMARY | 2021-01-18 11:57 | CCD | Continuity of Care Document ---
Author Author Renea CAMAAR FOREMAN OR SUPERVISOR AND OPERATOR Organization Unknown Address [address] [place] [address] Phone [phone] Care Team Providers Care Stencil Inspector Name Role Phone Gladys Franz MD AUTM [phone] [facility] [phone] Problems Active Problems Provider Date Mixed hyperlipidemia Regina Gagnon PA Onset: Essential hypertension Regina Gagnon PA Onset: 0 06/19/2020 Gastroesophageal reflux disease Gladys Franz M.D. Ons et: 11/15/2020 Prediabetes Gladys Franz M.D. Onset: 11/17/19 21 Social History Type [...] SIG Qnty Indications Ordering Provide r Date Tobramycin 0.3% Solution 2 drops both eyes three times a day for 5 days 1units H10.33 Gladys Franz M.D. 12/12/2020 Fluticasone Propionate/Salmeterol Diskus 250-50mcg/Dose Aerosol inhale one puff by mouth twice a day 60units Gladys Franz M.D. 11/15/2020 Robaxin-750 750mg Tablets take one by mouth every 8 hours as needed [facility] Topiramate 200mg Tablets o ne tab at hs Unknown Verapamil HCL 80mg Tablets 1 by mouth three times a day 270tabs Unknown Sumatriptan Succinate 100mg Tablet s one tab by mouth at onset of headache, repeat once in one hour if needed [facility] Neurology Acetaminophen 500mg Tablets 1-2 tablets three times a day as needed Unknown Oxycodone HCL 5mg Capsules 1 cap by mouth every 6 hours as needed for ankle pain. avoid daily use. 30Gladys Galvan M.D. Metoprolol Tartrate 25mg Tablets take one tablet by mouth twice a day [facility] Neurol ogy Pantoprazole Sodium 40mg Tablets D R take one tablet by mouth bid 180tabs Unknown Duloxetine HCL 60mg Caps DR Part 1 by mouth every day 90kanwals Gladys Franz M.D. Gabapentin 300mg Capsules 1 tablet 3 times a day for neck pain [facility] Albuterol Sulfate (2 .5mg/3ML) 0.083% Nebulizer 1 unit dose ampule in nebulizer and inha led up to 4 times a day for coughing and wheezing 75ml Gladys Franz M.D. Albuterol Sulfate HFA 108(90Base) mcg/Act Aerosol inhale 2 puffs by mouth every 4 hours as needed 25.5gm Gladys Franz M.D. Furosemide 20mg Tablets take one tablet by mouth every day in the morning Brenden, Summers FACC 0 Atorvastatin Calcium 40mg Tablets take one tablet by mouth every day for cholesterol 90tabs Unknow n Zyrtec Allergy 10mg Capsules 1 by mouth every day 90caps Unknown Montelukast Sodium 10mg Tablets 1 by mouth every day 90tabs Unknown History Medications Ciprofloxacin HCL 500mg Tablets 1 by mouth twice a day 14tabs R30.0 Gladys Franz M.D. 021 - 09/01/2020 Nitrofurantoin Monohyd Macro 100mg Capsules take 1 tablet twice a day for 7 days Unkn own 08/20/2020 - 08/25/2020 Azithromycin 250mg Tablets take 2 tabs by mouth x 1 day, then one tab by mouth daily for remaining days 6tabs J20.9 Regina Gagnon PA 07/10/2020 - 08/15/2020 Immunizations CPT Code Status Date Vaccine Lot # [id number] Given 08/15/2020 Moderna Sars-(Co vid-19) vaccine, mRNA, LNP-S, PF, 100 mcg/ 0.5 mL [id number] Given 07/18/2020 Moderna Sars-(Co vid-19) vaccine, mRNA, LNP-S, PF, 100 mcg/ 0.5 mL [id number] Given 05/03/2020 Influenza Virus, quadravalent, preservative free,age 6 Mo and up Vital Signs Date Vital Result Comment 12/15/2020 12:19pm BP Systolic 132 mmHg BP Diastolic 93 mmHg BP Systolic Recheck 119 mmHg BP Diastolic Recheck 75 mmHg Heart Rate 78 /min Body Temperature 97.5 F Respiratory Rate 16 /min Height 61.50 inches 5'1.50" Weight 236.50 lb O2 % BldC Oximetry 98 % Peak Expiratory Flow Rate 338 Estimated Peak Flow Rate [place] Body Weight 105 lb BMI (Body Mass Index) 44.0 kg/m2 12/12/2020 1:56pm BP Systolic 123 mmHg BP Diastolic 80 mmHg Heart Rate 76 /min Body Temperature 97.3 F Respiratory Rate 16 /min Height 61.50 inches 5'1.50" Weight 236.00 lb Peak Expiratory Flow Rate 338 Estimated Peak Flow Rate [place] Body Weight 105 lb BMI (Body Mass Index) 43.9 kg/m2 Results Test Acquired Date Facility Test Result H/L Range Note Clostridium Difficle By PCR 10/12/2020 [facility] [place] [address] [phone] Clostridium Difficile PCR TNP Normal Negati ve Nap1 027 For Cdiff PCR TNP Normal Negative 1 Laboratory test finding 10/12/2020 [place] [address] [phone] Stool Lactoferrin-polys by Ica NEGATIVE Normal 2 Fat Fecal Qualitative 10/12/2020 [place] [address] [phone] Fats Neutral Normal Normal . 3 Fats Total Normal Normal . 4 Laboratory test finding 10/12/2020 [place] [address] [phone] Pancreatic Elastase Stool >500 Normal >200 5 Laboratory test finding 10/12/2020 [place] [address] [phone] Tissue Transglutaminase IgA <2 U/mL Normal 0-3 6 Iga Subclasses 10/12/2020 Patient [place] [address] [phone] IgA Serum (part of Subclasses) 393 mg/dL High 8 7-352 Igasub2 316.7 mg/dL High 73.2-301.2 Igasub3 48.5 mg/dL Normal 13.4-97.9 CBC With Differential 10/12/2020 [place] [address] [phone] White Blood Count 5.7 10 Normal 4.0-10.0 [...] 36.0-66.0 Lymph % 32.3 % Normal 24.0-44.0 [place] % 8.8 % High 2.0-8.0 Eos % 3.0 % Normal 0.0-3.0 Baso % 0.5 % Normal 0.0-1.0 Immature Granulocyte % 0.2 % Normal 0-3.0 Nucleated Red Blood Cell % 0.0 % Normal 0-0 Neutrophils # 3.1 10 Normal 1.5-8.5 Lymph # 1.8 10 Normal 1.5-5.0 [place] # 0.5 10 Normal 0.0-0.8 Eos # 0.2 10 Normal 0.0-0.5 Baso # 0.0 10 Normal 0.0-0.2 Laboratory test finding 10/12/2020 [place] [address] [phone] Erythrocyte Sedimentation Rate 23 mm/hr High 0 -20 Liver Profile 10/12/2020 [place] [address] [phone] Ast/Sgot 32 U/L Normal 7-37 Alt/SGPT 101 U/L High 12-78 Alkaline Phosphatase 123 U/L High 45-117 Bilirubin,Total 0.3 mg/dL Normal 0.2-1.0 Bilirubin,Direct < 0.1 mg/dL Normal 0.0-0.2 Total Protein 7.1 GM/DL Normal 6.4-8.2 Albumin 3.2 GM/DL Normal 3.2-5.2 Albumin/Globulin Ratio 0.8 Low 1.2-2.2 Laboratory test finding 10/12/2020 [place] [address] [phone] C Reactive Protein Quantitativ 0.66 mg/dL High 0 .00-0.30 Laboratory test finding 08/25/2020 [facility] [phone] Urine Culture FULL REPORT IN L <SEE NOTE> Normal 7 Ua W/ Reflex To Culture 08/20/2020 [place] [address] [phone] Appearance, Urine RFX CLOUDY High Clear Color, Urine RFX RADHA Normal Yellow PH,Urine RFX 5.0 units Normal 5.0-9.0 Specific [place] Ur Auto RFX 1.029 Normal 1.002-1.035 Protein, [...] 0-1 Reflex Urine Culture 08/20/2020 Patient Service [place], [place] [address] [phone] Reflex Urine Culture FULL REPORT IN L <SEE NOTE> Norm al 8 1 Clostridium difficile testin g will only be [...] Please contact Infectious Disease Specialist with questions. 2 3 Normal (<60 Droplets/HPF) 4 Normal (<100 Droplets/HPF) 5 Result Units: ug Elast./g Severe Pancreatic Insufficiency: <100 Moderate Pancreatic Insufficiency: 100 - 200 Normal: >200 Performed at: [facility] [employer] [id number] Coach Mechanic: Yarely Torres MD, Phone: [phone] Performed at: [address] [id number] Coach Mechanic: Thor Escobar MD, Phone: [phone] Negative 0 - 3 Weak Positive 4 - 10 Positive >10 . Tissue Transglutaminase (tTG) has been identified as the endomysial antigen. Studies have demonstr- ated that endomysial IgA antibodies have over 99% specificity for gluten sensitive enteropathy. Performed at: [facility] [employer] [id number] Coach Mechanic: Yarely Torres MD, Phone: [phone] Performed at: [address] [id number] Coach Mechanic: Thor Escobar MD, Phone: [phone] 7 FULL REPORT IN LAB NOTES ([facility] and [facility]). SPECIMEN APPEARS CONTAMINATED 8 FULL REPORT IN LAB NOTES ([facility]). SPECIMEN APPEARS CONTAMINATED Procedures Date Code Description Status 12/12/2020 30125 Office/Outpatient Established Lo w MDM 20-29 Min Completed 11/15/2020 78617 Office/Outpatient Established Mo d MDM 30-39 Min Completed 08/29/2020 70891 Office/Outpatient Established SF MDM 10-19 Min Completed 08/25/2020 08879 Office/Outpatient Established Mo d MDM 30-39 Min Completed 08/15/2020 45229 Office/Outpatient Established Mo d MDM 30-39 Min Completed 07/10/2020 22398 Office/Outpatient Established Mo d MDM 30-39 Min Completed 06/19/2020 53567 Office/Outpatient Established Mo d MDM 30-39 Min Completed 06/19/2020 40965 Office/Outpatient Established Mo d MDM 30-39 Min Completed Medical Devices Description No Information Available Encounters Type Date Location Provider Dx Diagnosis Office Visit 12/12/2020 2:00p Main Office Gladys Franz M.D. H 10.33 Unspecified acute conjunctivitis, bilateral Office Visit 11/15/2020 11:15a Main Office Gladys Franz M.D. I 10 Essential (primary) hypertension R73.01 Impaired fasting glucose E78.2 Mixed hyperlipidemia K21.9 Gastro-esophageal reflux dis ease without esophagitis M19.071 Primary osteoarthritis, righ t ankle and foot J45.40 Moderate persistent asthma, uncomplicated Office Visit 08/29/2020 3:30p Main Office Gladys Franz M.D. R 30.0 Dysuria I10 Essential (primary) hyperten charisse Office Visit 08/25/2020 10:45a Main Office Gladys Franz M.D. R 30.0 Dysuria Office Visit 08/15/2020 1:30p Main Office Osei, Gladys A., M.D. I 10 Essential (primary) hypertension E78.2 Mixed hyperlipidemia R73.01 Impaired fasting glucose K21.9 Gastro-esophageal reflux dis ease without esophagitis M19.071 Primary osteoarthritis, righ t ankle and foot Office Visit 07/10/2020 9:45a Main Office Regina Gagnon PA J20.9 Acute bronchitis, unspecified Office Visit 06/19/2020 9:45a Main Office Regina Gagnon PA R10.30 Lower abdominal pain, unspecified I10 Essential (primary) hyperten charisse E78.2 Mixed hyperlipidemia R73.01 Impaired fasting glucose Assessments Date Code Description Provider 12/15/2020 M19.071 Primary osteoarthritis, right an kle and foot Eden Camara, [facility] 12/15/2020 J45.40 Moderate persistent asthma, unco mplicated Eden Camara, [facility] 12/12/2020 H10.33 Unspecified acute conjunctivitis , bilateral Gladys Franz M.D. 11/15/2020 I10 Essential (primary) hypertension Gladys Franz M.D. 11/15/2020 R73.01 Impaired fasting glucose Gladys Haskins M.D. 11/15/2020 E78.2 Mixed hyperlipidemia Jacob Franz M.D. 11/15/2020 K21.9 Gastro-esophageal reflux disease without esophagitis Gladys Franz M.D. 11/15/2020 M19.071 Primary osteoarthritis, right an kle and foot Gladys Franz M.D. 11/15/2020 J45.40 Moderate persistent asthma, unco mplicated Gladys Franz M.D. 08/29/2020 R30.0 Dysuria Gladys Franz M.D. 08/29/2020 I10 Essential (primary) hypertension Gladys Franz M.D. 08/25/2020 R30.0 Dysuria Gladys Franz M.D. 08/15/2020 I10 Essential (primary) hypertension Gladys Franz M.D. 08/15/2020 E78.2 Mixed hyperlipidemia Jacob Franz M.D. 08/15/2020 R73.01 Impaired fasting glucose Gladys Haskins M.D. 08/15/2020 K21.9 Gastro-esophageal reflux disease without esophagitis Gladys Franz M.D. 08/15/2020 M19.071 Primary osteoarthritis, right an kle and foot Gladys Franz M.D. 07/10/2020 J20.9 Bronchitis PetrancostElisa garza cia PA 06/19/2020 R10.30 Lower abdominal pain, unspecifie d Gladys Franz M.D. 06/19/2020 R10.30 Lower abdominal pain, unspecifie d Regina Gagnon PA 06/19/2020 I10 Essential (primary) hypertension Gladys Franz M.D. 06/19/2020 I10 Essential (primary) hypertension AlfaostRegina garza PA 06/19/2020 E78.2 Mixed hyperlipidemia Jacob Franz M.D. 06/19/2020 E78.2 Mixed hyperlipidemia Petrancosta , Reginacourtney Brown PA 06/19/2020 R73.01 Impaired fasting glucose Gladys Haskins M.D. 06/19/2020 R73.01 Impaired fasting glucose Alfa ostRegina garza PA Plan of Treatment Future Appointment(s):* 03/20/2021 1:15 pm - Eden Camara FNP at Main Office 12/15/2020 - Eden Camara FNP* M19.071 Primary osteoarthritis, right ankle and foot* Follow up:* 3 months * J45.40 Moderate persistent asthma, uncomplicated Functional Status Functional Condition Comment Date Status Bifocal glasses Active Independent with all ADL's Activ e Complete lower and upper and lower dentures Active Independent with all IADL's Acti ve Mental Status Mental Condition Comment Date Status Impaired Memory Active Trouble with reading, poor speller Active Referrals Refer to Reason for Referral Status Appt Date Rajat Beal M.D. & Associate abdominal pain Closed [address] [place] [address] [phone] [facility] Ab[facility] pain Closed 10/11/2020 [address] [place] [address] [phone]
--- OUTSIDE RECORDS SUMMARY | 2021-01-18 11:57 | CCD | Continuity of Care Document ---
Author Author Renea SALINAS M.D. Organization Unknown Address [address] [place] [address] Phone [phone] Care Team Providers Care Assistant Speech Language Pathologist Name Role Phone Gladys Salinas MD [facility] [phone] [facility] Problems Active Problems [...] Use Never Used Drugs Smoking Status Reviewed: 12/12/20 Patient has never smoked Exercise Type/Frequency Exercises [...] days 1units H10.33 Gladys Salinas M.D. 12/12/2020 Fluticasone Propionate/Salmeterol Diskus 250-50mcg/Dose Aerosol inhale one puff by mouth twice a day 60units Gladys Salinas M.D. 11/15/2020 Robaxin-750 750mg Tablets take one by mouth every 8 hours as needed Pain Management Ce nter Topiramate 200mg Tablets o ne tab at hs Unknown Verapamil HCL 80mg Tablets 1 by mouth three times a day 270tabs Unknown Sumatriptan Succinate 100mg Tablet s one tab by mouth at onset of headache, repeat once in one hour if needed [facility] Neurology Acetaminophen 500mg Tablets 1-2 tablets three times a day as needed Unknown Oxycodone HCL 5mg Capsules 1 cap by mouth every 6 hours as needed for ankle pain. avoid daily use. 30Gladys Galvan M.D. Metoprolol Tartrate 25mg Tablets take one tablet by mouth twice a day [facility] Neurol ogy Pantoprazole Sodium 40mg Tablets D R take one tablet by mouth bid 180tabs Unknown Duloxetine HCL 60mg Caps DR Part 1 by mouth every day 90kanwals Gladys Salinas M.D. Gabapentin 300mg Capsules 1 [...] CPT Code Status Date Vaccine Lot # [id number] Given 07/18/2020 Moderna Sars-(Co vid-19) vaccine, mRNA, LNP-S, PF, 100 mcg/ 0.5 mL [id number] Given 05/03/2020 Influenza Virus, quadravalent, preservative free,age 3 and up Vital Signs Date Vital Result Comment 12/12/2020 1:56pm BP Systolic 123 mmHg BP Diastolic 80 mmHg Heart Rate 76 /min Body Temperature 97.3 F Respiratory Rate 16 /min Height 61.50 inches 5'1.50" Weight 236.00 lb Peak Expiratory Flow Rate 338 Estimated Peak Flow Rate [place] Body Weight 105 lb BMI (Body Mass Index) 43.9 kg/m2 11/15/2020 11:21am BP Systolic 119 mmHg BP Diastolic 77 mmHg Heart Rate 84 /min Body Temperature 98.0 F Respiratory Rate 14 /min Height 61.50 inches 5'1.50" Weight 232.50 lb Peak Expiratory Flow Rate 338 Estimated Peak Flow Rate [place] Body Weight 105 lb BMI (Body Mass Index) 43.2 kg/m2 Results Test Acquired Date Facility Test Result H/L Range Note Clostridium Difficle By PCR 10/12/2020 [place] [address] [phone] Clostridium Difficile PCR TNP Normal Negati ve Nap1 027 For Cdiff PCR TNP Normal Negative 1 Laboratory test finding 10/12/[address] [place] [address] [phone] Stool Lactoferrin-polys by Ica NEGATIVE Normal 2 Fat Fecal Qualitative 10/12/2020 [place] [address] [phone] Fats Neutral Normal Normal . 3 Fats Total Normal Normal . 4 Laboratory test finding 10/12/2020 [place] [address] [phone] Pancreatic Elastase Stool >500 Normal >200 5 Laboratory test finding 10/12/2020 [place] [address] [phone] Tissue Transglutaminase IgA <2 U/mL Normal 0-3 6 Iga Subclasses 10/12/[address] [place] [address] [phone] IgA Serum (part of Subclasses) 393 mg/dL High 8 7-352 Igasub2 316.7 mg/dL High 73.2-301.2 Igasub3 48.5 mg/dL Normal 13.4-97.9 CBC With Differential 10/12/2020 [place] [address] [phone] White Blood Count 5.7 10 Normal 4.0-10.0 [...] 36.0-66.0 Lymph % 32.3 % Normal 24.0-44.0 [place] % 8.8 % High 2.0-8.0 Eos % 3.0 % Normal 0.0-3.0 Baso % 0.5 % Normal 0.0-1.0 Immature Granulocyte % 0.2 % Normal 0-3.0 Nucleated Red Blood Cell % 0.0 % Normal 0-0 Neutrophils # 3.1 10 Normal 1.5-8.5 Lymph # 1.8 10 Normal 1.5-5.0 [place] # 0.5 10 Normal 0.0-0.8 Eos # 0.2 10 Normal 0.0-0.5 Baso # 0.0 10 Normal 0.0-0.2 Laboratory test finding 10/12/2020 [place] [address] [phone] Erythrocyte Sedimentation Rate 23 mm/hr High 0 -20 Liver Profile 10/12/2020 [place] [address] [phone] Ast/Sgot 32 U/L Normal 7-37 Alt/SGPT 101 U/L High 12-78 Alkaline Phosphatase 123 U/L High 45-117 Bilirubin,Total 0.3 mg/dL Normal 0.2-1.0 Bilirubin,Direct < 0.1 mg/dL Normal 0.0-0.2 Total Protein 7.1 GM/DL Normal 6.4-8.2 Albumin 3.2 GM/DL Normal 3.2-5.2 Albumin/Globulin Ratio 0.8 Low 1.2-2.2 Laboratory test finding 10/12/2020 [place] [address] [phone] C Reactive Protein Quantitativ 0.66 mg/dL High 0 .00-0.30 Laboratory test finding 08/25/2020 [facility] [phone] Urine Culture FULL REPORT IN L <SEE NOTE> Normal 7 Ua W/ Reflex To Culture 08/20/2020 [place] [address] [phone] Appearance, Urine RFX CLOUDY High Clear Color, Urine RFX RADHA Normal Yellow PH,Urine RFX 5.0 units Normal 5.0-9.0 Specific [place] Ur Auto RFX 1.029 Normal 1.002-1.035 Protein, [...] 0-1 Reflex Urine Culture 08/20/2020 Patient Service [facility] RADIOLOGY [place], [place] [address] [phone] Reflex Urine Culture FULL REPORT IN L [...] 100 - 200 Normal: >200 Performed at: [facility] [address] [id number] Incinerator Operator: Yarely Torres MD, Phone: [phone] Performed at: [address] [id number] Incinerator Operator: Thor Escobar MD, Phone: [phone] Negative 0 - 3 Weak Positive 4 - 10 Positive >10 . Tissue Transglutaminase (tTG) has been identified as the endomysial antigen. Studies have demonstr- ated that endomysial IgA antibodies have over 99% specificity for gluten sensitive enteropathy. Performed at: [facility] [address] [id number] Incinerator Operator: Yarely Torres MD, Phone: [phone] Performed at: [facility] [address] [id number] Incinerator Operator: Thor Escobar MD, Phone: [phone] 7 FULL REPORT IN LAB NOTES (eC W and [facility]). SPECIMEN APPEARS CONTAMINATED 8 FULL REPORT IN LAB NOTES (eC W and [facility]). SPECIMEN APPEARS CONTAMINATED Procedures Date Code Description Status 11/15/2020 90674 Office/Outpatient Established Mo d MDM 30-39 Min Completed 08/29/2020 83147 Office/Outpatient Established SF MDM 10-19 Min Completed 08/25/2020 30540 Office/Outpatient Established Mo d MDM 30-39 Min Completed 08/15/2020 28080 Office/Outpatient Established Mo d MDM 30-39 Min Completed 07/10/2020 00787 Office/Outpatient Established Mo d MDM 30-39 Min Completed 06/19/2020 78893 Office/Outpatient Established Mo d MDM 30-39 Min Completed 06/19/2020 63610 Office/Outpatient Established Mo d MDM 30-39 Min Completed Medical Devices Description No Information Available Encounters Type Date Location Provider Dx Diagnosis Office Visit 11/15/2020 11:15a Main Office Gladys [...] fasting glucose Assessments Date Code Description Provider 12/12/2020 H10.33 Unspecified acute conjunctivitis , bilateral [...] an kle and foot Gladys Salinas M.D. 07/10/2020 J20.9 Bronchitis Elisa Gagnon cia, PA 06/19/2020 R10.30 Lower abdominal pain, unspecifie d Gladys Salinas M.D. 06/19/2020 R10.30 Lower abdominal pain, unspecifie d Regina Gagnon PA 06/19/2020 I10 Essential (primary) hypertension Gladys Salinas M.D. 06/19/2020 I10 Essential (primary) hypertension Regina Gagnon PA 06/19/2020 E78.2 Mixed hyperlipidemia Jacob Salinas M.D. 06/19/2020 E78.2 Mixed hyperlipidemia Regina Gagnon PA 06/19/2020 R73.01 Impaired fasting glucose Gladys Haskins M.D. 06/19/2020 R73.01 Impaired fasting glucose Regina Goldman PA Plan of Treatment Future Appointment(s):* 12/15/2020 12:15 pm - Eden Camara FNP at Main Office 12/12/2020 - Gladys Salinas M.D.* H10.33 Unspecified acute conjunctivitis, bilateral* New Medication:* Tobramycin 0.3 % - 2 drops both eyes three times a day for 5 days Functional Status Functional Condition Comment Date Status Bifocal glasses Active Independent with all ADL's Activ e Complete lower and upper and lower dentures Active Independent with all IADL's Acti ve Mental Status Mental Condition Comment Date Status Impaired Memory Active Trouble with reading, poor speller Active Referrals Refer to Reason for Referral Status Appt Date Rajat Beal M.D. & Associate abdominal pain Closed [address] [place] [address] [phone] [facility] Ab[facility] Closed 10/11/2020 [address] [place] [address] [phone]
--- OUTSIDE RECORDS SUMMARY | 2021-01-18 11:57 | CCD | Continuity of Care Document ---
Author Author Renea CAMARA GRAPHIC TECHNICIAN Organization Unknown Address [address] [place] [address] Phone [phone] Care Team Providers Care Lettuce Trimmer Name Role Phone Gladys Franz MD AUTM [phone] [facility] AUTM [phone] Problems Active Problems Provider Date Mixed hyperlipidemia [...] a day 60units Gladys Franz M.D. 11/15/2020 Montelukast Sodium 10mg Tablets 1 by mouth every day 90tabs Unknown Topiramate 200mg Tablets o ne tab at hs Unknown Verapamil HCL 80mg Tablets 1 by mouth three times a day 270tabs Unknown Sumatriptan Succinate 100mg Tablet s one tab by mouth at onset of headache, repeat once in one hour if needed [facility] Neurology Acetaminophen 500mg Tablets 1-2 tablets three times a day as needed Unknown Oxycodone HCL 5mg Capsules 1 cap by mouth every 6 hours as needed for ankle pain. avoid daily use. 30capGladys Good M.D. Metoprolol Tartrate 25mg Tablets take one tablet by mouth twice a day [facility] Neurol ogy Pantoprazole Sodium 40mg Tablets D R take one tablet by mouth bid 180tabs Unknown Robaxin-750 750mg Tablets take one by mouth every 8 hours as needed [facility] Ce nter Duloxetine HCL 60mg Caps DR Part 1 by mouth every day 90Gladys Galvan M.D. Gabapentin 300mg Capsules 1 tablet 3 [...] days 1units H10.33 Gladys Franz M.D. 12/12/2020 - 12/17/2020 Ciprofloxacin HCL 500mg [...] CPT Code Status Date Vaccine Lot # [id number] Given 08/15/2020 Moderna Sars-(Co vid-19) vaccine, mRNA, LNP-S, PF, 100 mcg/ 0.5 mL [id number] Given 07/18/2020 Moderna Sars-(Co vid-19) vaccine, mRNA, LNP-S, PF, 100 mcg/ 0.5 mL 79670 Given 05/03/2020 Influenza Virus, quadravalen t, age 6 Mo and up Vital Signs Date [...] Flow Rate 338 Estimated Peak Flow Rate [place] Body Weight 105 lb BMI (Body Mass Index) 44.0 kg/m2 12/12/2020 1:56pm BP Systolic 123 mmHg BP Diastolic 80 mmHg Heart Rate 76 /min Body Temperature 97.3 F Respiratory Rate 16 /min Height 61.50 inches 5'1.50" Weight 236.00 lb Peak Expiratory Flow Rate 338 Estimated Peak Flow Rate [place] Body Weight 105 lb BMI (Body Mass Index) 43.9 kg/m2 Results Test Acquired Date Facility Test Result H/L Range Note Clostridium Difficle By PCR 10/12/2020 [place] [address] [phone] Clostridium Difficile PCR TNP Normal Negati ve Nap1 027 For Cdiff PCR TNP Normal Negative 1 Laboratory test finding 10/12/2020 [place] [address] [phone] Stool Lactoferrin-polys by Ica NEGATIVE Normal 2 Fat Fecal Qualitative 10/12/2020 [place] [address] [phone] Fats Neutral Normal Normal . 3 Fats Total Normal Normal . 4 Laboratory test finding 10/12/2020 Patient Service [place] [id number] [phone] Pancreatic Elastase Stool >500 Normal >200 5 Laboratory test finding 10/12/2020 Patient Service [place] [id number] [phone] Tissue Transglutaminase IgA <2 U/mL Normal 0-3 6 Iga Subclasses 10/12/2020 [place] [address] [phone] IgA Serum (part of Subclasses) 393 mg/dL High 8 7-352 Igasub2 316.7 mg/dL High 73.2-301.2 Igasub3 48.5 mg/dL Normal 13.4-97.9 CBC With Differential 10/12/2020 [place] [address] [phone] White Blood Count 5.7 10 Normal 4.0-10.0 [...] 36.0-66.0 Lymph % 32.3 % Normal 24.0-44.0 [place] % 8.8 % High 2.0-8.0 Eos % 3.0 % Normal 0.0-3.0 Baso % 0.5 % Normal 0.0-1.0 Immature Granulocyte % 0.2 % Normal 0-3.0 Nucleated Red Blood Cell % 0.0 % Normal 0-0 Neutrophils # 3.1 10 Normal 1.5-8.5 Lymph # 1.8 10 Normal 1.5-5.0 [place] # 0.5 10 Normal 0.0-0.8 Eos # 0.2 10 Normal 0.0-0.5 Baso # 0.0 10 Normal 0.0-0.2 Laboratory test finding 10/12/2020 [place] [address] [phone] Erythrocyte Sedimentation Rate 23 mm/hr High 0 -20 Liver Profile 10/12/2020 [place] [address] [phone] Ast/Sgot 32 U/L Normal 7-37 Alt/SGPT 101 U/L High 12-78 Alkaline Phosphatase 123 U/L High 45-117 Bilirubin,Total 0.3 mg/dL Normal 0.2-1.0 Bilirubin,Direct < 0.1 mg/dL Normal 0.0-0.2 Total Protein 7.1 GM/DL Normal 6.4-8.2 Albumin 3.2 GM/DL Normal 3.2-5.2 Albumin/Globulin Ratio 0.8 Low 1.2-2.2 Laboratory test finding 10/12/2020 [place] [address] [phone] C Reactive Protein Quantitativ 0.66 mg/dL High 0 .00-0.30 Laboratory test finding 08/25/2020 [facility] [phone] Urine Culture FULL REPORT IN L <SEE NOTE> Normal 7 Ua W/ Reflex To Culture 08/20/2020 [place] [address] [phone] Appearance, Urine RFX CLOUDY High Clear Color, Urine RFX RADHA Normal Yellow PH,Urine RFX 5.0 units Normal 5.0-9.0 Specific [place] Ur Auto RFX 1.029 Normal 1.002-1.035 Protein, [...] 0-1 Reflex Urine Culture 08/20/2020 Patient Service [facility] [place] [address] [phone] Reflex Urine Culture FULL REPORT IN L [...] 100 - 200 Normal: >200 Performed at: [address] [id number] Repulping Supervisor: Yarely Torres MD, Phone: [phone] Performed at: [address] [id number] Repulping Supervisor: Thor Escobar MD, Phone: [phone] Negative 0 - 3 Weak Positive 4 - 10 Positive >10 . Tissue Transglutaminase (tTG) has been identified as the endomysial antigen. Studies have demonstr- ated that endomysial IgA antibodies have over 99% specificity for gluten sensitive enteropathy. Performed at: [address] [id number] Repulping Supervisor: Yarely Torres MD, Phone: [phone] Performed at: [address] [id number] Repulping Supervisor: Thor Escobar MD, Phone: [phone] 7 FULL REPORT IN LAB NOTES ([facility] [employer]). SPECIMEN APPEARS CONTAMINATED 8 FULL REPORT IN LAB NOTES ([facility] [employer]). SPECIMEN APPEARS CONTAMINATED Procedures Date Code Description Status 12/15/2020 91689 Office/Outpatient Established Lo w MDM 20-29 Min Completed 12/12/2020 50794 Office/Outpatient Established Lo w MDM 20-29 Min Completed 11/15/2020 83813 Office/Outpatient Established Mo d MDM 30-39 Min Completed 08/29/2020 88845 Office/Outpatient Established SF MDM 10-19 Min Completed 08/25/2020 48427 Office/Outpatient Established Mo d MDM 30-39 Min Completed 08/15/2020 63426 Office/Outpatient Established Mo d MDM 30-39 Min Completed 07/10/2020 01389 Office/Outpatient Established Mo d MDM 30-39 Min Completed 06/19/2020 22598 Office/Outpatient Established Mo d MDM 30-39 Min Completed 06/19/2020 52684 Office/Outpatient Established Mo d MDM 30-39 Min Completed Medical Devices Description No Information Available Encounters Type Date Location Provider Dx Diagnosis Office Visit 12/15/2020 12:15p Main Office Eden Camara, [place] M19.0 69 Primary osteoarthritis, right ankle and [...] Office Visit 08/15/2020 1:30p Main Office Gladys Franz M.D. I 10 Essential (primary) hypertension E78.2 [...] right an kle and foot Eden Camara, [facility] 12/15/2020 J45.40 Moderate persistent asthma, unco mplicated Eden Camara, [facility] 12/12/2020 H10.33 Unspecified acute conjunctivitis , [...] foot Gladys Franz M.D. 07/10/2020 J20.9 Bronchitis AlfaostElisa garza cia PA 06/19/2020 R10.30 Lower abdominal pain, unspecifie d Gladys Franz M.D. 06/19/2020 R10.30 Lower abdominal pain, unspecifie d Regina Gagnon PA 06/19/2020 I10 Essential (primary) hypertension Gladys Franz M.D. 06/19/2020 I10 Essential (primary) hypertension Regina Gagnon PA 06/19/2020 E78.2 Mixed hyperlipidemia Jacob Franz M.D. 06/19/2020 E78.2 Mixed hyperlipidemia Alfaosta Regina PA 06/19/2020 R73.01 Impaired fasting glucose Gladys Haskins M.D. 06/19/2020 R73.01 Impaired fasting glucose Xavieranc ostRegina garza PA Plan of Treatment Future [...] M.D. & Associate abdominal pain Closed [address] [place], [place] [id number] [phone] [facility] Ab[facility] Closed 10/11/2020 [address] [place] [address] [phone]
--- OUTSIDE RECORDS SUMMARY | 2021-01-18 11:57 | CCD | Continuity of Care Document ---
Author Author Renea SALINAS M.D. Organization Unknown Address [address] [place] [address] Phone [phone] Care Team Providers Care Manager Cardiac Cath Name Role Phone Gladys Salinas MD AUTM [phone] [facility] AUTM Problems Active Problems [...] Use Never Used Drugs Smoking Status Reviewed: 11/15/20 Patient has never smoked Exercise Type/Frequency Exercises [...] repeat once in one hour if needed [facility] Neurology Acetaminophen 500mg Tablets 1-2 tablets three times a day as needed Unknown Oxycodone HCL 5mg Capsules 1 cap by mouth every 6 hours as needed for ankle pain. avoid daily use. 30caps Gladys Salinas M.D. Metoprolol Tartrate 25mg Tablets take one tablet by mouth twice a day [facility] Neurol ogy Pantoprazole Sodium 40mg Tablets [...] mouth every day 90caps Unknown History Medications Ciprofloxacin HCL 500mg Tablets [...] CPT Code Status Date Vaccine Lot # [id number] Given 07/18/2020 Moderna Sars-(Co vid-19) vaccine, mRNA, LNP-S, PF, 100 mcg/ 0.5 mL 09579 Given 05/03/2020 Influenza Virus, quadravalent, preservative free,age 3 and up Vital Signs Date Vital Result Comment 11/15/2020 11:21am BP Systolic 119 mmHg BP Diastolic 77 mmHg Heart Rate 84 /min Body Temperature 98.0 F Respiratory Rate 14 /min Height 61.50 inches 5'1.50" Weight 232.50 lb Peak Expiratory Flow Rate 338 Estimated Peak Flow Rate [place] Body Weight 105 lb BMI (Body Mass Index) 43.2 kg/m2 08/29/2020 3:19pm BP Systolic 112 mmHg BP Diastolic 74 mmHg Heart Rate 91 /min Body Temperature 97.6 F Respiratory Rate 18 /min Height 61.50 inches 5'1.50" Weight 237.00 lb O2 % BldC Oximetry 98 % Peak Expiratory Flow Rate 338 Estimated Peak Flow Rate [place] Body Weight 105 lb BMI (Body Mass Index) 44.1 kg/m2 Results Test Acquired Date Facility Test Result H/L Range Note Clostridium Difficle By PCR 10/12/2020 Patient Serv [facility] [place], [place] [id number] [phone] Clostridium Difficile PCR TNP Normal Negati ve Nap1 027 For Cdiff PCR TNP Normal Negative 1 Laboratory test finding 10/12/2020 [place] [address] [phone] Stool Lactoferrin-polys by Ica NEGATIVE Normal 2 Fat Fecal Qualitative 10/12/2020 Patient Service Ce [facility]ter [place], [place] 4772162 [phone] Fats Neutral Normal Normal . 3 Fats Total Normal Normal . 4 Laboratory test finding 10/12/2020 [place] [address] [phone] Pancreatic Elastase Stool >500 Normal >200 5 Laboratory test finding 10/12/2020 [place] [address] [phone] Tissue Transglutaminase IgA <2 U/mL Normal 0-3 6 Iga Subclasses 10/12/2020 [place] [address] [phone] IgA Serum (part of Subclasses) 393 mg/dL High 8 7-352 Igasub2 316.7 mg/dL High 73.2-301.2 Igasub3 48.5 mg/dL Normal 13.4-97.9 CBC With Differential 10/12/2020 [place] [address] [phone] White Blood Count 5.7 10 Normal 4.0-10.0 [...] 36.0-66.0 Lymph % 32.3 % Normal 24.0-44.0 [place] % 8.8 % High 2.0-8.0 Eos % 3.0 % Normal 0.0-3.0 Baso % 0.5 % Normal 0.0-1.0 Immature Granulocyte % 0.2 % Normal 0-3.0 Nucleated Red Blood Cell % 0.0 % Normal 0-0 Neutrophils # 3.1 10 Normal 1.5-8.5 Lymph # 1.8 10 Normal 1.5-5.0 [place] # 0.5 10 Normal 0.0-0.8 Eos # 0.2 10 Normal 0.0-0.5 Baso # 0.0 10 Normal 0.0-0.2 Laboratory test finding 10/12/2020 [place] [address] [phone] Erythrocyte Sedimentation Rate 23 mm/hr High 0 -20 Liver Profile 10/12/2020 [place] [address] [phone] Ast/Sgot 32 U/L Normal 7-37 Alt/SGPT 101 U/L High 12-78 Alkaline Phosphatase 123 U/L High 45-117 Bilirubin,Total 0.3 mg/dL Normal 0.2-1.0 Bilirubin,Direct < 0.1 mg/dL Normal 0.0-0.2 Total Protein 7.1 GM/DL Normal 6.4-8.2 Albumin 3.2 GM/DL Normal 3.2-5.2 Albumin/Globulin Ratio 0.8 Low 1.2-2.2 Laboratory test finding 10/12/2020 [place] [address] [phone] C Reactive Protein Quantitativ 0.66 mg/dL High 0 .00-0.30 Laboratory test finding 08/25/2020 [facility] [phone] Urine Culture FULL REPORT IN L <SEE NOTE> Normal 7 Ua W/ Reflex To Culture 08/20/2020 [place] [address] [phone] Appearance, Urine RFX CLOUDY High Clear Color, Urine RFX RADHA Normal Yellow PH,Urine RFX 5.0 units Normal 5.0-9.0 Specific [place] Ur Auto RFX 1.029 Normal 1.002-1.035 Protein, [...] 0-1 Reflex Urine Culture 08/20/2020 Patient Service [facility] [place] [address] [phone] Reflex Urine Culture FULL REPORT IN L [...] 100 - 200 Normal: >200 Performed at: [facility] [employer] [id number] Windows Systems Architect: Yarely Torres MD, Phone: [phone] Performed at: [facility] [employer] [id number] Windows Systems Architect: Thor Escobar MD, Phone: [phone] Negative 0 - 3 Weak Positive 4 - 10 Positive >10 . Tissue Transglutaminase (tTG) has been identified as the endomysial antigen. Studies have demonstr- ated that endomysial IgA antibodies have over 99% specificity for gluten sensitive enteropathy. Performed at: [address] [id number] Windows Systems Architect: Yarely Torres MD, Phone: [phone] Performed at: [address] [id number] 25 Windows Systems Architect: Thor Escobar MD, Phone: [phone] 7 FULL REPORT IN LAB NOTES (eC W and [facility]). SPECIMEN APPEARS CONTAMINATED 8 FULL REPORT IN LAB NOTES ([facility] [employer]). SPECIMEN APPEARS CONTAMINATED Procedures Date Code Description Status 11/15/2020 47481 Office/Outpatient Established Mo d MDM 30-39 Min Completed 08/29/2020 00787 Office/Outpatient Established SF MDM 10-19 Min Completed 08/25/2020 34685 Office/Outpatient Established Mo d MDM 30-39 Min Completed 08/15/2020 68307 Office/Outpatient Established Mo d MDM 30-39 Min Completed 07/10/2020 61032 Office/Outpatient Established Mo d MDM 30-39 Min Completed 06/19/2020 58054 Office/Outpatient Established Mo d MDM 30-39 Min Completed 06/19/2020 92456 Office/Outpatient Established Mo d MDM 30-39 Min Completed 06/07/2020 46719 Office/Outpatient Established Mo d MDM 30-39 Min Completed 06/07/2020 23143 Office/Outpatient Established Mo d MDM 30-39 Min [...] E78.2 Mixed hyperlipidemia R73.01 Impaired fasting glucose Office Visit 06/07/2020 1:45p Main Office Regina Gagnon PA R10.30 Lower abdominal pain, unspecified Assessments Date Code Description Provider 11/15/2020 I10 Essential (primary) hypertension Gladys Salinas [...] Impaired fasting glucose Alfa ostRegina garza PA 06/07/2020 R10.30 Lower abdominal pain, unspecifie d Gladys Salinas M.D. 06/07/2020 R10.30 Lower abdominal pain Regina Gagnon PA Plan of Treatment Future Appointment(s):* 12/15/2020 12:15 pm - Eden Camara FNP at Main Office 11/15/2020 - Gladys Salinas M.D.* I10 Essential (primary) hypertension * R73.01 Impaired fasting glucose* Comments:* last A1c 5.8. Focus on diet and exercise. * E78.2 Mixed hyperlipidemia * K21.9 Gastro-esophageal reflux disease without esophagitis* Comments:* stable on meds. * M19.071 Primary osteoarthritis, right ankle and foot* Comments:* will refill meds but instructed that her current script is to last 30 days. It is not to be taken every day. * J45.40 Moderate persistent asthma, uncomplicated* Comments:* using bronchodilator 4 times a day plus neb at night. Not well controlled, add LABA plus corticosteroid. * All * New Medication:* Fluticasone Propionate/Salmeterol Diskus 250-50 mcg/Dose - inhale one puff by mouth twice a day Goals 11/15/2020 - Gladys Salinas M.D.* I10 Essential (primary) hypertension* Stay active and continue meds to maintain good blood pressure readings. Functional Status Functional Condition Comment Date Status [...] M.D. & Associate abdominal pain Closed [address] [place], [place] 0427671 [phone] [facility] Ab[facility] pain Scheduled 10/11/2020 [address] [place], [place] [address]165 [phone]
--- OUTSIDE RECORDS SUMMARY | 2021-01-18 11:57 | CCD | Continuity of Care Document ---
Author Author Renea SALINAS M.D. Organization Unknown Address [address] [place] [address] Phone [phone] Care Team Providers Care Water And Gas Helper Name Role Phone Gladys Salinas MD AUTM [phone] [facility] AUTM Problems Active Problems [...] repeat once in one hour if needed [facility] Neurology Acetaminophen 500mg Tablets 1-2 tablets three times a day as needed Unknown Oxycodone HCL 5mg Capsules 1 cap by mouth every 6 hours as needed for ankle pain. avoid daily use. 30Gladys Galvan M.D. Metoprolol Tartrate 25mg Tablets take one tablet by mouth twice a day [facility] Neurol ogy Pantoprazole Sodium 40mg [...] CPT Code Status Date Vaccine Lot # [id number] Given 07/18/2020 Moderna Sars-(Co vid-19) vaccine, mRNA, LNP-S, PF, 100 mcg/ 0.5 mL [id number] Given 05/03/2020 Influenza Virus, quadravalent, preservative free,age 3 and up Vital Signs Date Vital Result Comment 12/12/2020 1:56pm BP Systolic 123 mmHg BP Diastolic 80 mmHg Heart Rate 76 /min Body Temperature 97.3 F Respiratory Rate 16 /min Height 61.50 inches 5'1.50" Weight 236.00 lb Peak Expiratory Flow Rate 338 Estimated Peak Flow Rate [place] Body Weight 105 lb BMI (Body Mass Index) 43.9 kg/m2 11/15/2020 11:21am BP Systolic 119 mmHg BP Diastolic 77 mmHg Heart Rate 84 /min Body Temperature 98.0 F Respiratory Rate 14 /min Height 61.50 inches 5'1.50" Weight 232.50 lb Peak Expiratory Flow Rate 338 Estimated Peak Flow Rate [place] Body Weight 105 lb BMI (Body Mass Index) 43.2 kg/m2 Results Test Acquired Date Facility Test Result H/L Range Note Clostridium Difficle By PCR 10/12/2020 [place] [address] [phone] Clostridium Difficile PCR TNP Normal Negati ve Nap1 027 For Cdiff PCR TNP Normal Negative 1 Laboratory test finding 10/12/2020 [place] [address] [phone] Stool Lactoferrin-polys by Ica NEGATIVE Normal 2 Fat Fecal Qualitative 10/12/2020 [place] [address] [phone] Fats Neutral Normal Normal . 3 Fats Total Normal Normal . 4 Laboratory test finding 10/12/2020 [place] [address] [phone] Pancreatic Elastase Stool >500 Normal >200 5 Laboratory test finding 10/12/2020 [place] [address] [phone] Tissue Transglutaminase IgA <2 U/mL Normal 0-3 6 Iga Subclasses 10/12/2020 [place] [address] [phone] IgA Serum (part of Subclasses) 393 mg/dL High 8 7-352 Igasub2 316.7 mg/dL High 73.2-301.2 Igasub3 48.5 mg/dL Normal 13.4-97.9 CBC With Differential 10/12/2020 [place] [address] [phone] White Blood Count 5.7 10 Normal 4.0-10.0 [...] 36.0-66.0 Lymph % 32.3 % Normal 24.0-44.0 [place] % 8.8 % High 2.0-8.0 Eos % 3.0 % Normal 0.0-3.0 Baso % 0.5 % Normal 0.0-1.0 Immature Granulocyte % 0.2 % Normal 0-3.0 Nucleated Red Blood Cell % 0.0 % Normal 0-0 Neutrophils # 3.1 10 Normal 1.5-8.5 Lymph # 1.8 10 Normal 1.5-5.0 [place] # 0.5 10 Normal 0.0-0.8 Eos # 0.2 10 Normal 0.0-0.5 Baso # 0.0 10 Normal 0.0-0.2 Laboratory test finding 10/12/2020 [place] [address] [phone] Erythrocyte Sedimentation Rate 23 mm/hr High 0 -20 Liver Profile 10/12/2020 [place] [address] [phone] Ast/Sgot 32 U/L Normal 7-37 Alt/SGPT 101 U/L High 12-78 Alkaline Phosphatase 123 U/L High 45-117 Bilirubin,Total 0.3 mg/dL Normal 0.2-1.0 Bilirubin,Direct < 0.1 mg/dL Normal 0.0-0.2 Total Protein 7.1 GM/DL Normal 6.4-8.2 Albumin 3.2 GM/DL Normal 3.2-5.2 Albumin/Globulin Ratio 0.8 Low 1.2-2.2 Laboratory test finding 10/12/2020 [place] [address] [phone] C Reactive Protein Quantitativ 0.66 mg/dL High 0 .00-0.30 Laboratory test finding 08/25/2020 [facility] [phone] Urine Culture FULL REPORT IN L <SEE NOTE> Normal 7 Ua W/ Reflex To Culture 08/20/2020 [place] [address] [phone] Appearance, Urine RFX CLOUDY High Clear Color, Urine RFX RADHA Normal Yellow PH,Urine RFX 5.0 units Normal 5.0-9.0 Specific [place] Ur Auto RFX 1.029 Normal 1.002-1.035 Protein, [...] 0-1 Reflex Urine Culture 08/20/2020 Patient Service [facility] RADIOLOGY [place], [place] [address] [phone] Reflex Urine Culture FULL REPORT IN L [...] 100 - 200 Normal: >200 Performed at: [facility] [employer] [id number] Agribusiness Internship: Yarely Torres MD, Phone: [phone] Performed at: [address] [id number] Agribusiness Internship: Thor Escobar MD, Phone: [phone] Negative 0 - 3 Weak Positive 4 - 10 Positive >10 . Tissue Transglutaminase (tTG) has been identified as the endomysial antigen. Studies have demonstr- ated that endomysial IgA antibodies have over 99% specificity for gluten sensitive enteropathy. Performed at: [facility] [employer] [id number] Agribusiness Internship: Yarely Torres MD, Phone: [phone] Performed at: [facility] [employer] [id number] Agribusiness Internship: Thor Escobar MD, Phone: [phone] FULL REPORT IN LAB NOTES (eC W and [facility]). SPECIMEN APPEARS CONTAMINATED 8 FULL REPORT IN LAB NOTES ([facility]C [facility] [employer]). SPECIMEN APPEARS CONTAMINATED Procedures Date Code Description Status 12/12/2020 45590 Office/Outpatient Established Lo w MDM 20-29 Min Completed 11/15/2020 78824 Office/Outpatient Established Mo d MDM 30-39 Min Completed 08/29/2020 70077 Office/Outpatient Established SF MDM 10-19 Min Completed 08/25/2020 80736 Office/Outpatient Established Mo d MDM 30-39 Min Completed 08/15/2020 51963 Office/Outpatient Established Mo d MDM 30-39 Min Completed 07/10/2020 13475 Office/Outpatient Established Mo d MDM 30-39 Min Completed 06/19/2020 31159 Office/Outpatient Established Mo d MDM 30-39 Min Completed 06/19/2020 06210 Office/Outpatient Established Mo d MDM 30-39 Min [...] (primary) hypertension Gladys Salinas M.D. 08/25/2020 R30.0 DysGladys Kepm M.D. 08/15/2020 I10 Essential (primary) hypertension Gladys [...] M.D. & Associate abdominal pain Closed [address] [place] [address] [phone] [facility] Ab[facility] pain Closed 10/11/2020 [address] [place] [address] [phone]
--- OUTSIDE RECORDS SUMMARY | 2021-01-18 11:57 | CCD | Continuity of Care Document ---
Author Author Renea SALINAS M.D. Organization Unknown Address [address] [place] [address] Phone [phone] Care Team Providers Care Scientific Process Operator Name Role Phone Gladys Salinas MD [facility] [phone] [facility] Problems Active Problems Provider Date Type 2 diabetes mellitus Regina Gagnon PA Onset: 06/19/2020 Mixed hyperlipidemia Regina Gagnon PA Onset: Essential hypertension Regina Gagnon PA Onset: 0 06/19/2020 Gastroesophageal reflux disease Gladys Salinas M.D. Ons et: 11/15/2020 Social History Type Date Description Comments Sex [...] 250-50mcg/Dose Aerosol inhale one puff by mouth every day 60units Gladys Salinas M.D. 11/15/2020 Montelukast [...] a day 14tabs R30.0 Gladys Salinas M.D. - 09/01/2020 Nitrofurantoin Monohyd Macro 100mg Capsules take 1 tablet twice a day for 7 days Unkn own 08/20/2020 - 08/25/2020 Azithromycin 250mg Tablets take 2 tabs by mouth x 1 day, then one tab by mouth daily for remaining days 6tabs J20.9 Regina Gagnon PA 07/10/2020 - 08/15/2020 Immunizations CPT Code Status Date Vaccine Lot # [id number] Given 07/18/2020 Moderna Sars-(Co vid-19) vaccine, mRNA, LNP-S, PF, 100 mcg/ 0.5 mL [id number] Given 05/03/2020 Influenza Virus, quadravalent, preservative free,age 3 and up Vital Signs Date Vital Result Comment 11/15/2020 11:21am BP Systolic 119 mmHg BP Diastolic 77 mmHg Heart Rate 84 /min Body Temperature 98.0 F Respiratory Rate 14 /min Height 61.50 inches 5'1.50" Weight 232.50 lb Peak Expiratory Flow Rate 338 Estimated Peak Flow Rate [place] Body Weight 105 lb BMI (Body Mass Index) 43.2 kg/m2 08/29/2020 3:19pm BP Systolic 112 mmHg BP Diastolic 74 mmHg Heart Rate 91 /min Body Temperature 97.6 F Respiratory Rate 18 /min Height 61.50 inches 5'1.50" Weight 237.00 lb O2 % BldC Oximetry 98 % Peak Expiratory Flow Rate 338 Estimated Peak Flow Rate [place] Body Weight 105 lb BMI (Body Mass Index) 44.1 kg/m2 Results Test Acquired Date Facility Test Result H/L Range Note Clostridium Difficle By PCR 10/12/2020 [facility] [place], [place] [id number] [phone] Clostridium Difficile PCR TNP Normal Negati ve Nap1 027 For Cdiff PCR TNP Normal Negative 1 Laboratory test finding 10/12/2020 [facility] [place], [place] [id number] [phone] Stool Lactoferrin-polys by Ica NEGATIVE Normal 2 Fat Fecal Qualitative 10/12/2020 Patient [facility] [place], [place] [id number] [phone] Fats Neutral Normal Normal . 3 Fats Total Normal Normal . 4 Laboratory test finding 10/12/2020 [place] [address] [phone] Pancreatic Elastase Stool >500 Normal >200 5 Laboratory test finding 10/12/2020 [place] [address] [phone] Tissue Transglutaminase IgA <2 U/mL Normal 0-3 6 Iga Subclasses 10/12/2020 [place] [address] [phone] IgA Serum (part of Subclasses) 393 mg/dL High 8 7-352 Igasub2 316.7 mg/dL High 73.2-301.2 Igasub3 48.5 mg/dL Normal 13.4-97.9 CBC With Differential 10/12/2020 [place] [address] [phone] White Blood Count 5.7 10 Normal 4.0-10.0 [...] 36.0-66.0 Lymph % 32.3 % Normal 24.0-44.0 [place] % 8.8 % High 2.0-8.0 Eos % 3.0 % Normal 0.0-3.0 Baso % 0.5 % Normal 0.0-1.0 Immature Granulocyte % 0.2 % Normal 0-3.0 Nucleated Red Blood Cell % 0.0 % Normal 0-0 Neutrophils # 3.1 10 Normal 1.5-8.5 Lymph # 1.8 10 Normal 1.5-5.0 [place] # 0.5 10 Normal 0.0-0.8 Eos # 0.2 10 Normal 0.0-0.5 Baso # 0.0 10 Normal 0.0-0.2 Laboratory test finding 10/12/2020 [place] [address] [phone] Erythrocyte Sedimentation Rate 23 mm/hr High 0 -20 Liver Profile 10/12/2020 [place] [address] [phone] Ast/Sgot 32 U/L Normal 7-37 Alt/SGPT 101 U/L High 12-78 Alkaline Phosphatase 123 U/L High 45-117 Bilirubin,Total 0.3 mg/dL Normal 0.2-1.0 Bilirubin,Direct < 0.1 mg/dL Normal 0.0-0.2 Total Protein 7.1 GM/DL Normal 6.4-8.2 Albumin 3.2 GM/DL Normal 3.2-5.2 Albumin/Globulin Ratio 0.8 Low 1.2-2.2 Laboratory test finding 10/12/2020 [place] [address] [phone] C Reactive Protein Quantitativ 0.66 mg/dL High 0 .00-0.30 Laboratory test finding 08/25/2020 [facility] [phone] Urine Culture FULL REPORT IN L <SEE NOTE> Normal 7 Ua W/ Reflex To Culture 08/20/2020 [place] [address] [phone] Appearance, Urine RFX CLOUDY High Clear Color, Urine RFX RADHA Normal Yellow PH,Urine RFX 5.0 units Normal 5.0-9.0 Specific [place] Ur Auto RFX 1.029 Normal 1.002-1.035 [...] 0-1 Reflex Urine Culture 08/20/2020 Patient Service [facility] [place] [address] [phone] Reflex Urine Culture FULL REPORT IN L [...] 100 - 200 Normal: >200 Performed at: [facility] [id number] Snailer: Yraely Torres MD, Phone: [phone] Performed at: [facility] [id number] Snailer: Thor Escobar MD, Phone: [phone] Negative 0 - 3 Weak Positive 4 - 10 Positive >10 . Tissue Transglutaminase (tTG) has been identified as the endomysial antigen. Studies have demonstr- ated that endomysial IgA antibodies have over 99% specificity for gluten sensitive enteropathy. Performed at: [facility] [id number] Snailer: Yarely Torres MD, Phone: [phone] Performed at: [facility] [address] [id number] Snailer: Thor Escobar MD, Phone: [phone] FULL REPORT IN LAB NOTES ([facility] and [facility]). SPECIMEN APPEARS CONTAMINATED 8 FULL REPORT IN LAB NOTES ([facility]). SPECIMEN APPEARS CONTAMINATED Procedures Date Code Description Status 08/29/2020 82591 Office/Outpatient Established SF MDM 10-19 Min Completed 08/25/2020 75947 Office/Outpatient Established Mo d MDM 30-39 Min Completed 08/15/2020 81125 Office/Outpatient Established Mo d MDM 30-39 Min Completed 07/10/2020 28094 Office/Outpatient Established Mo d MDM 30-39 Min Completed 06/19/2020 32099 Office/Outpatient Established Mo d MDM 30-39 Min Completed 06/19/2020 83731 Office/Outpatient Established Mo d MDM 30-39 Min Completed 06/07/2020 51675 Office/Outpatient Established Mo d MDM 30-39 Min Completed 06/07/2020 56995 Office/Outpatient Established Mo d MDM 30-39 Min Completed Medical Devices Description No Information Available Encounters Type Date Location Provider Dx Diagnosis Office Visit 08/29/2020 3:30p Main Office Gladys [...] unspecified Office Visit 06/19/2020 9:45a Main Office PetrcharisseostRegina garza PA R10.30 Lower abdominal pain, unspecified I10 Essential (primary) hyperten charisse E78.2 Mixed hyperlipidemia R73.01 Impaired fasting glucose Office Visit 06/07/2020 1:45p Main Office Regina Gagnon PA R10.30 Lower abdominal pain, unspecified Assessments Date Code Description Provider 08/29/2020 R30.0 Dysuria Gladys Salinas M.D. 08/29/2020 [...] foot Gladys Salinas M.D. 07/10/2020 J20.9 Bronchitis [place] [facility] courtney Brown PA 06/19/2020 R10.30 Lower abdominal pain, unspecifie d Gladys Salinas M.D. 06/19/2020 R10.30 Lower abdominal pain, unspecifie d Regina Gagnon PA 06/19/2020 I10 Essential (primary) hypertension Gladys Salinas M.D. 06/19/2020 I10 Essential (primary) hypertension Petrcharisseosta, Regina Kevin PA 06/19/2020 E78.2 Mixed hyperlipidemia Jacob Salinas M.D. 06/19/2020 E78.2 Mixed hyperlipidemia Petrancosta , Regina Kevin PA 06/19/2020 R73.01 Impaired fasting glucose Gladys Haskins M.D. 06/19/2020 R73.01 Impaired fasting glucose Xavieranc ostMayda garzaa Kevin PA 06/07/2020 R10.30 Lower abdominal pain, unspecifie d Gladys Salinas M.D. 06/07/2020 R10.30 Lower abdominal pain Regina Gagnon PA Plan of Treatment 11/15/2020 - Gladys Salinas M.D.* All * New Medication:* Fluticasone Propionate/Salmeterol Diskus 250-50 mcg/Dose - inhale one puff by mouth every day Functional Status Functional Condition Comment Date Status [...] M.D. & Associate abdominal pain Closed [address], [place] [id number] [phone] [facility] Abdominal pain Scheduled 10/11/2020 [address] [place], [place] [address] [phone]
--- OUTSIDE RECORDS SUMMARY | 2021-01-18 11:59 | CCD ---
Author Author [facility] Organization [facility] Address Unknown Phone Unavailable Care Team Providers Care Excellence Coach Name Role Phone Priyankcan J Shaina MARKETING DEVELOPMENT MANAGER Unavailable Unavailable Kocan, J Shaina MARKETING DEVELOPMENT MANAGER Unavailable Unavailable Kocan, J Shaina MARKETING DEVELOPMENT MANAGER Unavailable Unavailable Kocan, J Shaina MARKETING DEVELOPMENT MANAGER Unavailable Unavailable Kocan, J Shaina MARKETING DEVELOPMENT MANAGER Unavailable Unavailable Kocan, J Shaina MARKETING DEVELOPMENT MANAGER Unavailable Unavailable Kocan, J Shaina MARKETING DEVELOPMENT MANAGER Unavailable Unavailable Kocan, J Shaina MARKETING DEVELOPMENT MANAGER Unavailable Unavailable Kocan, J Shaina MARKETING DEVELOPMENT MANAGER Unavailable Unavailable Kocan, J Shaina MARKETING DEVELOPMENT MANAGER Unavailable Unavailable Kocan, J Shaina MARKETING DEVELOPMENT MANAGER Unavailable Unavailable Kocan, J Shaina MARKETING DEVELOPMENT MANAGER Unavailable Unavailable Kocan, J Shaina MARKETING DEVELOPMENT MANAGER Unavailable Unavailable Kevin Gagnon PA-C Unavailable Unavailabl e Petrancosta, Maunabo Regina PA-C Unavailable Unavailabl e Petrancosta, Maunabo Regina PA-C Unavailable Unavailabl e Petrancosta, Maunabo Regina PA-C Unavailable Unavailabl e Petrancosta, Maunabo Regina PA-C Unavailable Unavailabl e Petrancosta, Maunabo Regina PA-C Unavailable Unavailabl e Petrancosta, Maunabo Regina PA-C Unavailable Unavailabl e Petrancosta, Maunabo Regina PA-C Unavailable Unavailabl e Petrancosta, Maunabo Regina PA-C Unavailable Unavailabl e Petrancosta, Maunabo Regina PA-C Unavailable Unavailabl e Petrancosta, Maunabo Regina PA-C Unavailable Unavailabl e Petrancosta, Maunabo Regina PA-C Unavailable Unavailabl e Petrancosta, Maunabo Regina PA-C Unavailable Unavailabl e Petrancosta, Maunabo Regina PA-C Unavailable Unavailabl e Petrancosta, Maunabo Regina PA-C Unavailable Unavailabl e Petrancosta, Maunabo Regina PA-C Unavailable Unavailabl e Petrancosta, Maunabo Regina PA-C Unavailable Unavailabl e Petrancosta, Maunabo Regina PA-C Unavailable Unavailabl e Petrancosta, Maunabo Regina PA-C Unavailable Unavailabl e Petrancosta, Maunabo Regina PA-C Unavailable Unavailabl e Petrancosta, Maunabo Regina PA-C Unavailable Unavailabl e Petrancosta, Maunabo Regina PA-C Unavailable Unavailabl e Petrancosta, Maunabo Regina PA-C Unavailable Unavailabl e Petrancosta, Maunabo Regina PA-C Unavailable Unavailabl e Petrancosta, Maunabo Regina PA-C Unavailable Unavailabl e Elinor Leung MD Unavailable Unavailable Elinor Leung MD Unavailable Unavailable Elinor Leung MD Unavailable Unavailable Elinor Leung MD Unavailable Unavailable Elinor Leung MD Unavailable Unavailable Elinor Leung MD Unavailable Unavailable Elinor Leung MD Unavailable Unavailable Elinor Leung MD Unavailable Unavailable Elinor Lueng MD Unavailable Unavailable Elinor Leung MD Unavailable Unavailable Elinor Leung MD Unavailable Unavailable Elinor Leung MD Unavailable Unavailable Elinor Leung MD Unavailable Unavailable Elinor Leung MD Unavailable Unavailable Ali, Elinor MD Unavailable [...] Unavailable Ali, Elinor MD Unavailable Unavailable Ali, Eilnor MD Unavailable Unavailable Ali, Elinor MD Unavailable Unavailable Ali, Elinor MD Unavailable Unavailable Pleskach, Eden CHORE TENDER Unavailable Unavailable Pleskach, Eden CHORE TENDER Unavailable Unavailable Pleskach, Eden CHORE TENDER Unavailable Unavailable Pleskach, Eden CHORE TENDER Unavailable Unavailable Pleskach, Eden CHORE TENDER Unavailable Unavailable Pleskach, Eden CHORE TENDER Unavailable Unavailable Pleskach, Eden CHORE TENDER Unavailable Unavailable Pleskach, Eden CHORE TENDER Unavailable Unavailable Pleskach, Eden CHORE TENDER Unavailable Unavailable Pleskach, Eden CHORE TENDER Unavailable Unavailable Pleskach, Eden CHORE TENDER Unavailable Unavailable Pleskach, Eden CHORE TENDER Unavailable Unavailable Pleskach, Eden CHORE TENDER Unavailable Unavailable Pleskach, Eden CHORE TENDER Unavailable Unavailable Pleskach, Eden CHORE TENDER Unavailable Unavailable Pleskach, Eden CHORE TENDER Unavailable Unavailable Pleskach, Eden CHORE TENDER Unavailable Unavailable Pleskach, Eden CHORE TENDER Unavailable Unavailable Pleskach, Eden CHORE TENDER Unavailable Unavailable Pleskach, Eden CHORE TENDER Unavailable Unavailable Pleskach, Eden CHORE TENDER Unavailable Unavailable Pleskach, Eden CHORE TENDER Unavailable Unavailable Pleskach, Eden CHORE TENDER Unavailable Unavailable Pleskach, Eden CHORE TENDER Unavailable Unavailable Pleskach, Eden CHORE TENDER Unavailable Unavailable Pleskach, Eden CHORE TENDER Unavailable Unavailable Pleskach, Eden CHORE TENDER Unavailable Unavailable Pleskach, Eden CHORE TENDER Unavailable Unavailable Pleskach, Eden CHORE TENDER Unavailable Unavailable Pleskach, Eden CHORE TENDER Unavailable Unavailable Pleskach, Eden CHORE TENDER Unavailable Unavailable Pleskach, Eden CHORE TENDER Unavailable Unavailable Pleskach, Eden CHORE TENDER Unavailable Unavailable Pleskach, Eden CHORE TENDER Unavailable Unavailable Pleskach, Eden CHORE TENDER Unavailable Unavailable Pleskach, Eden CHORE TENDER Unavailable Unavailable Pleskach, Eden CHORE TENDER Unavailable Unavailable Pleskach, Eden CHORE TENDER Unavailable Unavailable Pleskach, Eden CHORE TENDER Unavailable Unavailable Pleskach, Eden CHORE TENDER Unavailable Unavailable Pleskach, Eden CHORE TENDER Unavailable Unavailable Pleskach, Eden CHORE TENDER Unavailable Unavailable Luz Franz MD Unavailable Unavailable Osei A Gladys FERRERA Unavailable Unavailable Osei, A Gladys MD Unavailable Unavailable Osei, A Gladys FERRERA Unavailable Unavailable Osei, A Gladys MD Unavailable Unavailable Osei, A Gladys FERRERA Unavailable Unavailable Osei, A Gladys FERRERA Unavailable Unavailable Osei A Gladys MD Unavailable Unavailable Osei A Gladys FERRERA Unavailable Unavailable Osei, A Gladys FERRERA Unavailable Unavailable Osei, A Gladys FERRERA Unavailable Unavailable Osei, A Gladys FERRERA Unavailable Unavailable Osei, A Gladys MD Unavailable Unavailable Osei, A Gladys MD Unavailable Unavailable Osei, A Gladys MD Unavailable Unavailable Osei, A Gladys MD Unavailable Unavailable Osei, A Gladys MD Unavailable Unavailable Osei, A Gladys MD Unavailable Unavailable Osei, A Gladys MD Unavailable Unavailable Osei A Gladys MD Unavailable Unavailable Osei, A Gladys MD Unavailable Unavailable Osei, A Gladys FERRERA Unavailable Unavailable Osei, A Gladys MD Unavailable Unavailable Osei A Gladys MD Unavailable Unavailable Osei A Gladys MD Unavailable Unavailable Osei A Gladys FERRERA Unavailable Unavailable Osei A Gladys FERRERA Unavailable Unavailable Osei A Gladys FERRERA Unavailable Unavailable Osei A Gladys FERRERA Unavailable Unavailable Osei A Gladys MD Unavailable Unavailable Osei, A Gladys MD Unavailable Unavailable Osei, A Gladys MD Unavailable Unavailable Osei, A Gladys MD Unavailable Unavailable Osei, A Gladys MD Unavailable Unavailable Osei, A Gladys MD Unavailable Unavailable Osei, A Gladys MD Unavailable Unavailable Osei, A Gladys MD Unavailable Unavailable Osei, A Gladys MD Unavailable Unavailable Osei, A Gladys MD Unavailable Unavailable Osei, A Gladys MD Unavailable Unavailable Osei A Gladys FERRERA Unavailable Unavailable Osei, A Gladys FERRERA Unavailable Unavailable Osei, A Gladys FERRERA Unavailable Unavailable Osei, A Gladys FERRERA Unavailable Unavailable Osei, A Gladys FERRERA Unavailable Unavailable Osei, A Gladys FERRERA Unavailable Unavailable Osei, A Gladys FERRERA Unavailable Unavailable Osei, A Gladys FERRERA Unavailable Unavailable Osei, A Gladys FERRERA Unavailable Unavailable Osei, A Gladys FERRERA Unavailable Unavailable Osei, A Gladys FERRERA Unavailable Unavailable Osei, A Gladys FERRERA Unavailable Unavailable Osei, A Gladys FERRERA Unavailable Unavailable Osei, A Gladys FERRERA Unavailable Unavailable Osei, A Gladys FERRERA Unavailable Unavailable Osei, A Gladys FERRERA Unavailable Unavailable Osei, A Gladys FERRERA Unavailable Unavailable Osei, A Gladys FERRERA Unavailable Unavailable Osei, A Gladys FERRERA Unavailable Unavailable Osei, A Gladys FERRERA Unavailable Unavailable Osei, A Gladys FERRERA Unavailable Unavailable Osei, A Gladys FERRERA Unavailable Unavailable Osei, A Gladys FERRERA Unavailable Unavailable Osei, A Gladys FERRERA Unavailable Unavailable Osei, A Gladys FERRERA Unavailable Unavailable Osei, A Gladys FERRERA Unavailable Unavailable Osei, A Gladys FERRERA Unavailable Unavailable Osei, A Gladys FERRERA Unavailable Unavailable Osei, A Gladys FERRERA Unavailable Unavailable Osei, A Gladys FERRERA Unavailable Unavailable Osei, A Gladys FERRERA Unavailable Unavailable Osei, A Gladys FERRERA Unavailable Unavailable Osei, A Gladys FERRERA Unavailable Unavailable Osei, A Gladys FERRERA Unavailable Unavailable Osei, A Gladys FERRERA Unavailable Unavailable Osei, A Gladys FERRERA Unavailable Unavailable Osei, A Gladys FERRERA Unavailable Unavailable Osei, A Gladys FERRERA Unavailable Unavailable Osei, A Gladys FERRERA Unavailable Unavailable Osei, A Gladys FERRERA Unavailable Unavailable Osei, Luz Graham MD Unavailable Unavailable Osei, Luz Graham MD Unavailable Unavailable Braulio Mccarty Unavailable [phone] Braulio Mccarty Unavailable [phone] Braulio Mccarty Unavailable [phone] Braulio Mccarty Unavailable [phone] Braulio Mccarty Unavailable [phone] Braulio Mccarty Unavailable [phone] Jacob CEJA MD Unavailable Unavailable Jacob CEJA MD Unavailable Unavailable Jacob CEJA MD Unavailable Unavailable Jacob CEJA MD Unavailable Unavailable Jacob CEJA MD Unavailable Unavailable Jacob CEJA MD Unavailable Unavailable Jacob CEJA MD Unavailable Unavailable Jacob CEJA MD Unavailable Unavailable Jacob CEJA MD Unavailable Unavailable Jacob CEJA MD Unavailable Unavailable Jacob CEJA MD Unavailable Unavailable Jacob CEJA MD Unavailable Unavailable Jacob CEJA MD Unavailable Unavailable Jacob CEJA MD Unavailable Unavailable Jacob CEJA MD Unavailable Unavailable Jacob CEJA MD Unavailable Unavailable Jacob CEJA MD Unavailable Unavailable Jacob CEJA MD Unavailable Unavailable Jacob CEJA MD Unavailable Unavailable Jacob CEJA MD Unavailable Unavailable Jacob CEJA MD Unavailable Unavailable Jacob CEJA MD Unavailable Unavailable Jacob CEJA MD Unavailable Unavailable Jacob CEJA MD Unavailable Unavailable Jacob CEJA MD Unavailable Unavailable Jacob CEJA MD Unavailable Unavailable Jacob CEJA MD Unavailable Unavailable Jacob CEJA MD Unavailable Unavailable Jacob CEJA MD Unavailable Unavailable Jacob CEJA MD Unavailable Unavailable Jacob CEJA MD Unavailable Unavailable Jacob CEJA MD Unavailable Unavailable Jacob CEJA MD Unavailable Unavailable Chakraborty, Remington Kim Unavailable Unavailable Chakraborty, Remington Kim Unavailable Unavailable Chakraborty, Remington Kim Unavailable Unavailable Chakraborty, Remington Kim Unavailable Unavailable Chakraborty, Remington Kim Unavailable Unavailable Chakraborty, Remington Kim Unavailable Unavailable Chakraborty, Remington Kim Unavailable Unavailable Chakraborty, Remington Kim Unavailable Unavailable Chakraborty, Remington Kim Unavailable Unavailable Chakraborty, Remington Kim Unavailable Unavailable Chakraborty, Remington Kim Unavailable Unavailable Chakraborty, Remington Kim Unavailable Unavailable Chakraborty, Remington Kim Unavailable Unavailable Re-disclosure Warning The records that [...] is protected by Article 27-F of the [facility] Public Health law. If you continue you may have access to information: Regarding HIV / AIDS; Provided by facilities licensed or operated by the [facility] Office of Mental Health; or Provided by the [facility] Office for People With Developmental Disabilities. If such information is present, then the following [facility] mandated warning applies: This information [...] Description Substance Reaction Status Data Source(s ) Allergy to substance Allergy to substance Allergy to substance JILLIAN ([facility]) Allergy to substance Allergy to substance Allergy to substance JILLIAN ([facility]) Family History Family Member Name Family Member Gender Family Member Status Date o f Status Description Data Source(s) Unknown Male Problem MEDENT ([facility] ) Unknown Female Problem MEDENT ([facility]) Unknown Unknown Problem MEDENT ([facility]) Unknown Female Problem MEDENT ([facility]) Encounters Encounter Providers Location Date Indications Data Source(s ) Outpatient Attender: Eden YUNP Main Office 12/15/2020 1 2:15:00 PM EDT MEDENT ([facility] Outpatient Attender: Gladys Franz MD Main Office 12/12/2020 02:00:0 0 PM EDT MEDENT ([facility] Outpatient Attender: Gladys Franz MD Main Office 11/15/2020 11:15:0 0 AM EDT MEDENT ([facility] Outpatient Attender: KEVIN Layne/Wale/Guy fairbanks/Shannan 10/11/2020 10:30:00 AM EDT MEDENT ([facility]) Unknown [address] [facility] [address] 09/08/2020 12:00:00 AM EDT eCW1 ([facility]) Outpatient Attender: Gladys Franz MD Main Office 08/29/2020 03:30:0 0 PM EDT MEDENT ([facility] Outpatient Attender: Gladys Franz MD Main Office 08/25/2020 10:45:0 0 AM EDT MEDENT ([facility] Office Visit Attender: Elinor Leung MD Main office - [place] 08/18/2020 09:00:00 AM EDT MEDENT ([facility] ) Outpatient Attender: Gladys Franz MD Main Office 08/15/2020 01:30:0 0 PM EDT MEDENT ([facility] ANJUM HeC: [address] [place] [address], Ph. Attender: Kim Chakraborty [facility] 08/15/2020 12:00:00 AM EDT JILLIAN ([facility]) ANJUM HeC: [address] [place] [address], Ph. Attender: Kim Chakraborty [facility] 07/18/2020 12:00:00 AM EDT JILLIAN ([facility]) ANJUM HeC: [address] [place] [address], Ph. Attender: Kim Chakraborty [facility] 07/18/2020 12:00:00 AM EDT JILLIAN ([facility]) Outpatient Attender: Regina Gagnon PA-C Main Office 07/10/2020 09:45:00 AM EDT MEDENT ([facility] Outpatient Attender: Braulio Mccarty 07/05 05:56:26 PM EDT - 07/05/2020 07:52:20 PM EDT DocuTap ([facility] ) Outpatient Attender: Regina Gagnon PA-C Main Office 06/19/2020 09:45:00 AM EDT MEDENT ([facility] Outpatient Attender: Regina Gagnon PA-C Main Office 06/07/2020 12:45:00 PM EST [facility] ([facility] [place] [address] [address] 05/31/2020 12:00:00 AM EST eCW1 ([facility]) Outpatient Attender: Elinor Leung MD Main office - [place] 05/25/2020 12:45:00 PM EST MEDENT ([facility], ) Outpatient Attender: Regina Gagnon PA-C Main Office 05/17/2020 12:30:00 PM EST [facility] ([facility] [place] [address] [address] [address] 05/12/2020 12:00:00 AM EST eCW1 ([facility]) Outpatient [address] [facility] [place] [address] 05/11/2020 12:00:00 AM EST eCW1 ([facility]) Outpatient Attender: Shaina JORGE [email or web address] 2020 12:00:00 AM EST - 05/03/2020 03:12:51 PM EST [facility] [place] [address] [address] 04/27/2020 12:00:00 AM EST eCW1 ([facility]) [place] [address] [address] 04/26/2020 12:00:00 AM EST eCW1 ([facility]) Unknown [address] [facility] [place] [address] 04/26/2020 12:00:00 AM EST eCW1 [facility]) TeleMedicine Phone E/M by Phys 11-20 Min [address] [place] [address] 04/24/2020 12:00:00 AM EST eCW1 ([facility]) Unknown [address] [facility] [place] [address] 04/21/2020 12:00:00 AM EST eCW1 ([facility]) [place] [address] [facility] [place] [address] 04/19/2020 12:00:00 AM EST eCW1 ([facility]) [place] [address] [address] [address] 04/11/2020 12:00:00 AM EST eCW1 ([facility]) [place] [address] [address] 04/10/2020 12:00:00 AM EST eCW1 ([facility]) Outpatient Attender: Elinor Leung MD Main office - [place] 04/03/2020 11:00:00 AM EST MEDENT ([facility]) [place] [address] [facility] [address] 03/29/2020 12:00:00 AM EST eCW1 ([facility]) Unknown [address] [facility] [place] [address] 03/27/2020 12:00:00 AM EST eCW1 ([facility]) Unknown [address] [facility] [place] [address] 03/13/2020 12:00:00 AM EST eCW1 ([facility]) [place] [address] [address] 03/10/2020 12:00:00 AM EST eCW1 ([facility]) [place] [address] [address] 02/28/2020 12:00:00 AM EST eCW1 ([facility]) [place] [address] [facility] [address] 02/18/2020 12:00:00 AM EST eCW1 ([facility]) [place] [address] [facility] [address] 01/27/2020 12:00:00 AM EDT eCW1 ([facility]) [place] [address] [facility] [address] 01/19/2020 12:00:00 AM EDT eCW1 ([facility]) [place] [address] [facility] [facility] [address] 01/12/2020 12:00:00 AM EDT eCW1 ([facility]) [facility] [address] [facility] [address] 11/25/2019 12:00:00 AM EDT eCW1 ([facility]) Immunizations Vaccine Date Status Description Data Source(s) COVID-19, mRNA, LNP-S, PF, 100 mcg/0.5 mL dose 08/15/2020 05 :29:01 PM EDT completed .5 mL JILLIAN ([facility]) Moderna Sars-(Covid-19) vaccine, mRNA, LNP-S, PF, 100 mcg/ 0.5 mL 08/15/2020 12:00:00 AM EDT completed MEDENT ([facility] COVID-19 VACCINE Moderna 08/15/2020 12:00:00 AM EDT completed [facility] Vaccine Series Complete: YESThis Data wa s Submitted to [facility] Via [facility]. COVID-19, mRNA, LNP-S, PF, 100 mcg/0.5 mL dose 07/18/2020 08 :34:00 AM EDT completed .5 mL JILLIAN ([facility]) Moderna Sars-(Covid-19) vaccine, mRNA, LNP-S, PF, 100 mcg/ 0.5 mL 07/18/2020 12:00:00 AM EDT completed [facility] ([facility] COVID-19 VACCINE Moderna 07/18/2020 12:00:00 AM EDT completed [facility] Vaccine Series Complete: NOThis Data was Submitted to [facility] Via [employer] in 2011. IIV4 05/02/2020 11:00:00 PM EST completed [facility] ([facility] Medications Medication Brand Name Start Date Product Form Dose Route Admi nistrative Instructions Pharmacy Instructions Status Indications Reaction Description Data Source(s) 5 mg 12/19/2020 12:00:00 AM EDT capsule 30 TAKE 1 CAPSULE BY MOUTH EVERY 6 HOURS NEEDED FOR ANKLE PAIN, AVOID DAILY USE, MAXIMUM DAILY DOSE = 2 CAPSULES TAKE 1 CAPSULE BY MOUTH EVERY 6 HOURS NEEDED FOR ANKLE PAIN, AVOID DAILY USE, MAXIMUM DAILY DOSE = 2 CAPSULES SOLD: 12/21/2020 [facility] Tobramycin 3 MG/ML Ophthalmic Solution Tobramycin 12/12/2020 12:0 0:00 AM EDT OPHTHALMIC completed [facility] ([facility] 0.3 % 12/12/2020 12:00:00 AM EDT drops 5 INSTILL 2 DROPS IN BOTH EYES THREE TIMES A DAY FOR 5 DAYS INSTILL 2 DROPS IN BOTH EYES THREE TIMES A DAY FOR 5 DAYS SOLD: 12/12/2020 [facility] 5 mg 11/17/2020 12:00:00 AM EDT capsule 30 TAKE ONE CAPSULE BY MOUTH EVERY 6 HOURS NEEDED FOR ANKLE PAIN * MAXIMUM DAILY DOSE = 2 TAKE ONE CAPSULE BY MOUTH EVERY 6 HOURS NEEDED FOR ANKLE PAIN * MAXIMUM DAILY DOSE = 2 SOLD: 11/20/2020 [facility] 90 mcg/actuation 11/16/2020 12:00:00 AM EDT HFA aerosol inha ler 25 INHALE TWO PUFFS BY MOUTH EVERY 4 HOURS NEEDED INHALE TWO PUFFS BY MOUTH EVERY 4 HOURS NEEDED SOLD: 11/20/2020 [facility] 90 mcg/actuation 11/16/2020 12:00:00 AM EDT HFA aerosol inha ler 25 INHALE TWO PUFFS BY MOUTH EVERY 4 HOURS NEEDED INHALE TWO PUFFS BY MOUTH EVERY 4 HOURS NEEDED SOLD: 01/08/2021 [facility] 60 ACTUAT Fluticasone propionate 0.25 MG /ACTUAT / salmeterol 0.05 MG/ACTUAT Dry Powder Inhaler Fluticasone Propionate/Salmeterol Diskus 11/15/2020 12 :00:00 AM EDT ORAL active MEDENT ([facility] 250-50 mcg/dose 11/15/2020 12:00:00 AM EDT blister with angel ce 60 INHALE ONE PUFF BY MOUTH TWICE A DAY INHALE ONE PUFF BY MOUTH TWICE A DAY SOLD: 01/08/2021 [facility] 2.5 mg /3 mL (0.083 %) 11/15/2020 12:00:00 AM EDT solu tion for nebulization 75 INHALE ONE VIAL VIA NEBULIZER UP TO 4 TI MES A DAY FOR COUGHING AND WHEEZING INHALE ONE VIAL VIA NEBULIZER UP TO 4 TIMES A DAY FOR COUGHING AND WHEEZING SOLD: 11/20/2020 [facility] 250-50 mcg/dose 11/15/2020 12:00:00 AM EDT blister with angel ce 60 INHALE ONE PUFF BY MOUTH TWICE A DAY INHALE ONE PUFF BY MOUTH TWICE A DAY SOLD: 11/20/2020 [facility] 2.5 mg /3 mL (0.083 %) 11/15/2020 12:00:00 AM EDT solu tion for nebulization 75 INHALE ONE VIAL VIA NEBULIZER UP TO 4 TI MES A DAY FOR COUGHING AND WHEEZING INHALE ONE VIAL VIA NEBULIZER UP TO 4 TIMES A DAY FOR COUGHING AND WHEEZING SOLD: 01/08/2021 [facility] 5 mg 10/19/2020 12:00:00 AM EDT capsule 30 TAKE 1 CAPSULE BY MOUTH EVERY 6 HOURS NEEDED ANKLE PAIN MAXIMUM DAILY DOSE = 2 (AVOID DAILY USE) TAKE 1 CAPSULE BY MOUTH EVERY 6 HOURS NEEDED ANKLE PAIN MAXIMUM DAILY DOSE = 2 (AVOID DAILY USE) SOLD: 10/19/2020 [facility] 5 mg 09/19/2020 12:00:00 AM EDT capsule 30 TAKE ONE CAPSULE BY MOUTH EVERY 6 HOURS NEEDED FOR ANKLE PAIN, AVOID DAILY USE, MAXIMUM DAILY DOSE = 2 CAPSULES TAKE ONE CAPSULE BY MOUTH EVERY 6 HOURS NEEDED FOR ANKLE PAIN, AVOID DAILY USE, MAXIMUM DAILY DOSE = 2 CAPSULES SOLD: 09/20/2020 [facility] atorvastatin 40 MG Oral Tablet ATORVASTATIN CALCIUM 09/09/2020 1 2:00:00 AM EDT tablet 90 TAKE ONE TABLET BY MOUTH EVERY D AY TAKE ONE TABLET BY MOUTH EVERY DAY SOLD: 09/13/2020 [facility] pantoprazole 40 MG Delayed Release Oral Tablet PANTOPRAZOLE SODIUM 09/09/2020 12:00:00 AM EDT tablet,delayed release (DR/EC) 180 T BRYAN ONE TABLET BY MOUTH TWICE A DAY TAKE ONE TABLET BY MOUTH TWICE A DAY SOLD: 09/13/2020 [facility] 500 mg 08/25/2020 12:00:00 AM EDT tablet 14 TAKE ONE TABLET BY MOUTH TWICE A DAY TAKE ONE TABLET BY MOUTH TWICE A DAY SOLD: 08/25/2020 [facility] Ciprofloxacin 500 MG Oral Tablet Ciprofloxacin HCL 08/25/2020 12:00 :00 AM EDT ORAL completed [facility] ([facility] 100 mg 2020 12:00:00 AM EDT tablet 9 TAKE 1/2 TO 1 TABLET BY MOUTH AT ONSET OF HEDACHE, MAY REPEAT ONCE AFTER 2 HOURS, MAXIMUM DAILY DOSE = 2 TABLETS TAKE 1/2 TO 1 TABLET BY MOUTH AT ONSET OF HEDACHE, MAY REPEAT ONCE AFTER 2 HOURS, MAXIMUM DAILY DOSE = 2 TABLETS SOLD: 11/10/2020 [facility] 100 mg 2020 12:00:00 AM EDT tablet 9 TAKE 1/2 TO 1 TABLET BY MOUTH AT ONSET OF HEDACHE, MAY REPEAT ONCE AFTER 2 HOURS, MAXIMUM DAILY DOSE = 2 TABLETS TAKE 1/2 TO 1 TABLET BY MOUTH AT ONSET OF HEDACHE, MAY REPEAT ONCE AFTER 2 HOURS, MAXIMUM DAILY DOSE = 2 TABLETS SOLD: 01/16/2021 [facility] 100 mg 2020 12:00:00 AM EDT tablet 9 TAKE 1/2 TO 1 TABLET BY MOUTH AT ONSET OF HEDACHE, MAY REPEAT ONCE AFTER 2 HOURS, MAXIMUM DAILY DOSE = 2 TABLETS TAKE 1/2 TO 1 TABLET BY MOUTH AT ONSET OF HEDACHE, MAY REPEAT ONCE AFTER 2 HOURS, MAXIMUM DAILY DOSE = 2 TABLETS SOLD: 08/25/2020 [facility] 5 mg 08/22/2020 12:00:00 AM EDT capsule 30 TAKE ONE CAPSULE BY MOUTH EVERY 6 HOURS NEEDED FOR ANKLE PAIN. AVOID DAILY USE MAXIMUM DAILY DOSE = 2 TAKE ONE CAPSULE BY MOUTH EVERY 6 HOURS NEEDED FOR ANKLE PAIN. AVOID DAILY USE MAXIMUM DAILY DOSE = 2 SOLD: 2020 [facility] topiramate 200 MG Oral Tablet TOPIRAMATE 08/22/2020 12:00:00 AM EDT ta blet 30 TAKE ONE TABLET BY MOUTH AT BEDTIME TAKE ONE TABLET BY MOUTH AT BEDTIME SOLD: 08/25/2020 [facility] topiramate 200 MG Oral Tablet TOPIRAMATE 08/22/2020 12:00:00 AM EDT ta blet 30 TAKE ONE TABLET BY MOUTH AT BEDTIME TAKE ONE TABLET BY MOUTH AT BEDTIME SOLD: 01/16/2021 [facility] topiramate 200 MG Oral Tablet TOPIRAMATE 08/22/2020 12:00:00 AM EDT ta blet 30 TAKE ONE TABLET BY MOUTH AT BEDTIME TAKE ONE TABLET BY MOUTH AT BEDTIME SOLD: 11/10/2020 [facility] 200 mg 08/21/2020 12:00:00 AM EDT tablet 6 TAKE 1 TABLET BY MOUTH EVERY 8 HOURS TAKE 1 TABLET BY MOUTH EVERY 8 HOURS SOLD: 08/21/2020 [facility] NITROFURANTOIN, MACROCRYSTALS 25 MG / Ni trofurantoin, Monohydrate 75 MG Oral Capsule 100 mg NITROFURANTOIN MONOHYD/M-CRYST 08/21/2020 12:00:00 AM EDT ca psule 13 TAKE ONE CAPSULE BY MOUTH TWICE A DAY TAKE ONE CAPSULE BY MOUTH TWICE A DAY SOLD: 08/21/2020 [facility] NITROFURANTOIN, MACROCRYSTALS 25 MG / Ni trofurantoin, Monohydrate 75 MG Oral Capsule Nitrofurantoin Monohyd Macro 08/20/2020 12:00:00 AM EDT completed [facility] ([facility] 5 mg 07/21/2020 12:00:00 AM EDT capsule 30 TAKE ONE CAPSULE BY MOUTH EVERY 6 HOURS NEEDED FOR ANKLE PAIN .AVOID DAILY USE MAXIMUM DAILY DOSE = 4 TABLETS TAKE ONE CAPSULE BY MOUTH EVERY 6 HOURS NEEDED FOR ANKLE PAIN .AVOID DAILY USE MAXIMUM DAILY DOSE = 4 TABLETS SOLD: 07/21/2020 [facility] 250 mg 07/10/2020 12:00:00 AM EDT tablet 6 TAKE TWO TABLETS BY MOUTH AT ONCE ON THE FIRST DAY THEN TAKE ONE DAILY THEREAFTER TAKE TWO TABLETS BY MOUTH AT ONCE ON THE FIRST DAY THEN TAKE ONE DAILY THEREAFTER SOLD: 07/14/2020 [facility] Azithromycin 250 MG Oral Tablet Azithromycin 07/10/2020 12:00:00 AM E DT ORAL completed [facility] ([facility] 600 mg 07/06/2020 12:00:00 AM EDT tablet extended release 12hr 20 TAKE ONE TABLET BY MOUTH EVERY 12 HOURS FOR 10 DAYS TAKE ONE TABLET BY MOUTH EVERY 12 HOURS FOR 10 DAYS SOLD: 07/06/2020 [facility] 20 mg 07/06/2020 12:00:00 AM EDT tablet 10 TAKE TWO TABLETS BY MOUTH EVERY DAY FOR 5 DAYS TAKE TWO TABLETS BY MOUTH EVERY DAY FOR 5 DAYS SOLD: [facility] doxycycline hyclate 100 MG Oral Capsule DOXYCYCLINE HYCLATE 07/06/2020 12:00:00 AM EDT capsule 20 TAKE ONE CAPSULE BY MOUTH TW ICE A DAY FOR 10 DAYS TAKE ONE CAPSULE BY MOUTH TWICE A DAY FOR 10 DAYS SOLD: 07/06/2020 [facility] 60 mg 06/21/2020 12:00:00 AM EDT capsule,delayed release (DR/EC) 81 TAKE ONE CAPSULE BY MOUTH EVERY DAY TAKE ONE CAPSULE BY MOUTH EVERY DAY SOLD: 06/22/2020 [facility] 60 mg 06/21/2020 12:00:00 AM EDT capsule,delayed release (DR/EC) 90 TAKE ONE CAPSULE BY MOUTH EVERY DAY TAKE ONE CAPSULE BY MOUTH EVERY DAY SOLD: 09/13/2020 [facility] 5 mg 06/20/2020 12:00:00 AM EDT capsule 30 TAKE ONE CAPSULE BY MOUTH EVERY 6 HOURS NEEDED FOR ANKLE PAIN, AVOID DAILY USE, MAXIMUM DAILY DOSE = 4 CAPSULES TAKE ONE CAPSULE BY MOUTH EVERY 6 HOURS NEEDED FOR ANKLE PAIN, AVOID DAILY USE, MAXIMUM DAILY DOSE = 4 CAPSULES SOLD: 06/20/2020 [facility] 90 mcg/actuation 06/19/2020 12:00:00 AM EDT HFA aerosol inha ler 25 INHALE TWO PUFFS BY MOUTH EVERY 4 HOURS NEEDED INHALE TWO PUFFS BY MOUTH EVERY 4 HOURS NEEDED SOLD: 06/20/2020 [facility] 20 mg 06/07/2020 12:00:00 AM EST tablet 90 TAKE ONE TABLET BY MOUTH EVERY DAY TAKE ONE TABLET BY MOUTH EVERY DAY SOLD: 09/13/2020 [facility] 20 mg 06/07/2020 12:00:00 AM EST tablet 90 TAKE ONE TABLET BY MOUTH EVERY DAY TAKE ONE TABLET BY MOUTH EVERY DAY SOLD: 06/12/2020 [facility] topiramate 200 MG Oral Tablet Topiramate 05/25/2020 12:00:00 AM EST ORAL active [facility] ([facility] 5 mg 05/24/2020 12:00:00 AM EST capsule 30 TAKE 1 CAPSULE EVERY 6 HOURS NEEDED ANKLE PAIN AVOID DAILY USE MAXIMUM DAILY DOSE = 4 TAKE 1 CAPSULE EVERY 6 HOURS NEEDED ANKLE PAIN AVOID DAILY USE MAXIMUM DAILY DOSE = 4 SOLD: 05/24/2020 [facility] doxycycline hyclate 100 MG Oral Capsule Doxycycline Hy clate 100 MG Doxycycline Hyclate 100 MG 05/01/2020 12:00:00 AM EST 1.0 {capsule} suspended Doxycycline Hyclate 100 MG eCW1 ([facility]) doxycycline hyclate 100 MG Oral Capsule Doxycycline Hy clate 100 MG Doxycycline Hyclate 100 MG 05/01/2020 12:00:00 AM EST 1.0 {capsule} suspended Doxycycline Hyclate 100 MG eCW1 ([facility]) doxycycline hyclate 100 MG Oral Capsule Doxycycline Hy clate 100 MG Doxycycline Hyclate 100 MG 05/01/2020 12:00:00 AM EST 1.0 {capsule} suspended Doxycycline Hyclate 100 MG eCW1 ([facility]) doxycycline hyclate 100 MG Oral Capsule Doxycycline Hy clate 100 MG Doxycycline Hyclate 100 MG 05/01/2020 12:00:00 AM EST 1.0 {capsule} active Doxycycline Hyclate 100 MG eCW1 ([facility]) doxycycline hyclate 100 MG Oral Capsule Doxycycline Hy clate 100 MG Doxycycline Hyclate 100 MG 05/01/2020 12:00:00 AM EST 1.0 {capsule} suspended Doxycycline Hyclate 100 MG eCW1 ([facility]) topiramate 50 MG Oral Tablet topiramate (TOPAMAX) 50 M G tablet topiramate (TOPAMAX) 50 MG tablet 05/01/2020 12:00:00 AM EST active [facility] doxycycline hyclate 100 MG Oral Capsule Doxycycline Hy clate 100 MG Doxycycline Hyclate 100 MG 05/01/2020 12:00:00 AM EST 1.0 {capsule} suspended Doxycycline Hyclate 100 MG eCW1 ([facility]) doxycycline hyclate 100 MG Oral Capsule Doxycycline Hy clate 100 MG Doxycycline Hyclate 100 MG 05/01/2020 12:00:00 AM EST 1.0 {capsule} active Doxycycline Hyclate 100 MG eCW1 ([facility]) doxycycline hyclate 100 MG Oral Capsule DOXYCYCLINE HYCLATE 05/01/2020 12:00:00 AM EST capsule 14 TAKE ONE CAPSULE BY MOUTH TW ICE A DAY FOR 7 DAYS TAKE ONE CAPSULE BY MOUTH TWICE A DAY FOR 7 DAYS SOLD: 05/02/2020 [facility] Sumatriptan 100 MG Oral Tablet SUMAtriptan (IMITREX) 1 00 MG tablet SUMAtriptan (IMITREX) 100 MG tablet 04/22/2020 12:00:00 AM EST active TAKE 1/2 TO 1 TABLET BY MOUTH AT ONSET OF HEADACHE MAY REPEAT ONE AFTER 2 HOURS. MAXIMUM DAILY DOSE TWO TABLETS [facility] Oxycodone Hydrochloride 5 MG Oral Tablet Oxycodone HCl 5 MG Oxycodone HCl 5 MG 04/21/2020 12:00:00 AM EST active Oxycodone HCl 5 MG eCW1 ([facility]) Oxycodone Hydrochloride 5 MG Oral Tablet Oxycodone HCl 5 MG Oxycodone HCl 5 MG 04/21/2020 12:00:00 AM EST active Oxycodone HCl 5 MG eCW1 ([facility]) Oxycodone Hydrochloride 5 MG Oral Tablet Oxycodone HCl 5 MG Oxycodone HCl 5 MG 04/21/2020 12:00:00 AM EST active Oxycodone HCl 5 MG eCW1 ([facility]) Oxycodone Hydrochloride 5 MG Oral Tablet Oxycodone HCl 5 MG Oxycodone HCl 5 MG 04/21/2020 12:00:00 AM EST active Oxycodone HCl 5 MG eCW1 ([facility]) Oxycodone Hydrochloride 5 MG Oral Tablet Oxycodone HCl 5 MG Oxycodone HCl 5 MG 04/21/2020 12:00:00 AM EST active Oxycodone HCl 5 MG eCW1 ([facility]) Oxycodone Hydrochloride 5 MG Oral Tablet Oxycodone HCl 5 MG Oxycodone HCl 5 MG 04/21/2020 12:00:00 AM EST active Oxycodone HCl 5 MG eCW1 ([facility]) Oxycodone Hydrochloride 5 MG Oral Tablet Oxycodone HCl 5 MG Oxycodone HCl 5 MG 04/21/2020 12:00:00 AM EST active Oxycodone HCl 5 MG eCW1 ([facility]) 5 mg 04/21/2020 12:00:00 AM EST [...] EST active Oxycodone HCl 5 MG eCW1 ([facility]) Oxycodone Hydrochloride 5 MG Oral Tablet Oxycodone HCl 5 MG Oxycodone HCl 5 MG 04/21/2020 12:00:00 AM EST active Oxycodone HCl 5 MG eCW1 ([facility]) Alprazolam 0.5 MG Oral Tablet ALPRAZolam (XANAX) 0.5 M G tablet ALPRAZolam (XANAX) 0.5 MG tablet 04/04/2020 12:00:00 AM EST active TAKE ONE TABLET BY MOUTH 30 MINUTES BEFORE MRI SCAN MAY REPEAT ONCE NEEDED. MAXIMUM DAILY DOSE TWO TABLETS [facility] Sumatriptan 100 MG Oral Tablet Sumatriptan Succinate 04/03/2020 12:00:00 AM EST ORAL active [facility] ( [facility]) Alprazolam 0.5 MG Oral Tablet Alprazolam 04/03/2020 12:00:00 AM EST ORAL active [facility] ([facility], ) topiramate 50 MG Oral Tablet Topiramate 04/03/2020 12:00:00 AM EST completed [facility] ([facility], ) 25 mg 03/30/2020 12:00:00 AM EST tablet 60 TAKE ONE TABLET BY MOUTH TWICE A DAY WITH FOOD TAKE ONE TABLET BY MOUTH TWICE A DAY WITH FOOD SOLD: 04/01/2020 [facility] Metoprolol Tartrate 25 MG Oral Tablet me toprolol tartrate (LOPRESSOR) 25 MG tablet metoprolol tartrate (LOPRESSOR) 25 MG tablet 03/30/2020 12:0 0:00 AM EST 25 mg Oral active Take 25 mg by mo [facility] 2 (two) times a day [facility] Metoprolol Tartrate 25 MG Oral Tablet Metoprolol Tartrate 25 MG 03/29/2020 12:00:00 AM EST 1.0 {tablet_with_food} active Metoprolol Tartrate 25 MG eCW1 ([facility]) Metoprolol Tartrate 25 MG Oral Tablet Metoprolol Tartrate 25 MG 03/29/2020 12:00:00 AM EST 1.0 {tablet_with_food} active Metoprolol Tartrate 25 MG eCW1 ([facility]) Metoprolol Tartrate 25 MG Oral Tablet Metoprolol Tartrate 25 MG 03/29/2020 12:00:00 AM EST 1.0 {tablet_with_food} active Metoprolol Tartrate 25 MG eCW1 ([facility]) Metoprolol Tartrate 25 MG Oral Tablet Metoprolol Tartrate 25 MG 03/29/2020 12:00:00 AM EST 1.0 {tablet_with_food} active Metoprolol Tartrate 25 MG eCW1 ([facility]) Metoprolol Tartrate 25 MG Oral Tablet Metoprolol Tartrate 25 MG 03/29/2020 12:00:00 AM EST 1.0 {tablet_with_food} active Metoprolol Tartrate 25 MG eCW1 ([facility]) Metoprolol Tartrate 25 MG Oral Tablet Metoprolol Tartrate 25 MG 03/29/2020 12:00:00 AM EST 1.0 {tablet_with_food} active Metoprolol Tartrate 25 MG eCW1 ([facility]) Metoprolol Tartrate 25 MG Oral Tablet Metoprolol Tartrate 25 MG 03/29/2020 12:00:00 AM EST 1.0 {tablet_with_food} active Metoprolol Tartrate 25 MG eCW1 ([facility]) Metoprolol Tartrate 25 MG Oral Tablet Metoprolol Tartrate 25 MG 03/29/2020 12:00:00 AM EST 1.0 {tablet_with_food} active Metoprolol Tartrate 25 MG eCW1 ([facility]) Metoprolol Tartrate 25 MG Oral Tablet Metoprolol Tartrate 25 MG 03/29/2020 12:00:00 AM EST 1.0 {tablet_with_food} active Metoprolol Tartrate 25 MG eCW1 ([facility]) Metoprolol Tartrate 25 MG Oral Tablet Metoprolol Tartrate 25 MG 03/29/2020 12:00:00 AM EST 1.0 {tablet_with_food} active Metoprolol Tartrate 25 MG eCW1 ([facility]) Metoprolol Tartrate 25 MG Oral Tablet Metoprolol Tartrate 25 MG 03/29/2020 12:00:00 AM EST 1.0 {tablet_with_food} active Metoprolol Tartrate 25 MG eCW1 ([facility]) Metoprolol Tartrate 25 MG Oral Tablet Metoprolol Tartrate 25 MG 03/29/2020 12:00:00 AM EST 1.0 {tablet_with_food} active Metoprolol Tartrate 25 MG eCW1 ([facility]) Metoprolol Tartrate 25 MG Oral Tablet Metoprolol Tartrate 25 MG 03/29/2020 12:00:00 AM EST 1.0 {tablet_with_food} active Metoprolol Tartrate 25 MG eCW1 ([facility]) Oxycodone Hydrochloride 5 MG Oral Tablet Oxycodone HCl 5 MG Oxycodone HCl 5 MG 03/27/2020 12:00:00 AM EST active Oxycodone HCl 5 MG eCW1 ([facility]) Oxycodone Hydrochloride 5 MG Oral Tablet Oxycodone HCl 5 MG Oxycodone HCl 5 MG 03/27/2020 12:00:00 AM EST active Oxycodone HCl 5 MG eCW1 ([facility]) Oxycodone Hydrochloride 5 MG Oral Tablet Oxycodone HCl 5 MG Oxycodone HCl 5 MG 03/27/2020 12:00:00 AM EST active Oxycodone HCl 5 MG eCW1 ([facility]) Oxycodone Hydrochloride 5 MG Oral Tablet Oxycodone HCl 5 MG Oxycodone HCl 5 MG 03/27/2020 12:00:00 AM EST active Oxycodone HCl 5 MG eCW1 ([facility]) Verapamil hydrochloride 80 MG Oral Tablet verapamil (C BRANDON) 80 MG tablet verapamil (CALAN) 80 MG tablet 03/27/2020 12:00:00 AM EST 80 mg Or al active Take 80 mg by mouth 3 (three) ti mes a day [facility] Oxycodone Hydrochloride 5 MG Oral Tablet Oxycodone HCl 5 MG Oxycodone HCl 5 MG 03/27/2020 12:00:00 AM EST active Oxycodone HCl 5 MG eCW1 ([facility]) 5 mg 03/27/2020 12:00:00 AM EST tablet 30 TAKE ONE TABLET BY MOUTH EVERY 6 HOURS NEEDED MAXIMUM DAILY DOSE = 2 TAKE ONE TABLET BY MOUTH EVERY 6 HOURS A S NEEDED MAXIMUM DAILY DOSE = 2 SOLD: 03/27/2020 [facility] Prednisone 20 MG Oral Tablet PredniSONE 20 MG PredniSONE 20 MG 03/13/2020 12:00:00 AM EST 2.0 {tablets} suspended PredniSONE 20 MG eCW1 ([facility]) Prednisone 20 MG Oral Tablet PredniSONE 20 MG PredniSONE 20 MG 03/13/2020 12:00:00 AM EST 2.0 {tablets} active P redniSONE 20 MG eCW1 ([facility]) Prednisone 20 MG Oral Tablet PredniSONE 20 MG PredniSONE 20 MG 03/13/2020 12:00:00 AM EST 2.0 {tablets} active P redniSONE 20 MG eCW1 ([facility]) Prednisone 20 MG Oral Tablet PredniSONE 20 MG PredniSONE 20 MG 03/13/2020 12:00:00 AM EST 2.0 {tablets} suspended PredniSONE 20 MG eCW1 ([facility]) Prednisone 20 MG Oral Tablet PredniSONE 20 MG PredniSONE 20 MG 03/13/2020 12:00:00 AM EST 2.0 {tablets} suspended PredniSONE 20 MG eCW1 ([facility]) Prednisone 20 MG Oral Tablet PredniSONE 20 MG PredniSONE 20 MG 03/13/2020 12:00:00 AM EST 2.0 {tablets} suspended PredniSONE 20 MG eCW1 ([facility]) Prednisone 20 MG Oral Tablet PredniSONE 20 MG PredniSONE 20 MG 03/13/2020 12:00:00 AM EST 2.0 {tablets} suspended PredniSONE 20 MG eCW1 ([facility]) Prednisone 20 MG Oral Tablet PredniSONE 20 MG PredniSONE 20 MG 03/13/2020 12:00:00 AM EST 2.0 {tablets} suspended PredniSONE 20 MG eCW1 ([facility]) Prednisone 20 MG Oral Tablet PredniSONE 20 MG PredniSONE 20 MG 03/13/2020 12:00:00 AM EST 2.0 {tablets} suspended PredniSONE 20 MG eCW1 ([facility]) Prednisone 20 MG Oral Tablet PredniSONE 20 MG PredniSONE 20 MG 03/13/2020 12:00:00 AM EST 2.0 {tablets} suspended PredniSONE 20 MG eCW1 ([facility]) Prednisone 20 MG Oral Tablet PredniSONE 20 MG PredniSONE 20 MG 03/13/2020 12:00:00 AM EST 2.0 {tablets} suspended PredniSONE 20 MG eCW1 ([facility]) Prednisone 20 MG Oral Tablet PredniSONE 20 MG PredniSONE 20 MG 03/13/2020 12:00:00 AM EST 2.0 {tablets} suspended PredniSONE 20 MG eCW1 ([facility]) 20 mg 03/13/2020 12:00:00 AM EST tablet 4 TAKE TWO TABLETS BY MOUTH EVERY DAY TAKE TWO TABLETS BY MOUTH EVERY DAY SOLD: 03/17/2020 [facility] Prednisone 20 MG Oral Tablet PredniSONE 20 MG PredniSONE 20 MG 03/13/2020 12:00:00 AM EST 2.0 {tablets} suspended PredniSONE 20 MG eCW1 ([facility]) Prednisone 20 MG Oral Tablet PredniSONE 20 MG PredniSONE 20 MG 03/13/2020 12:00:00 AM EST 2.0 {tablets} suspended PredniSONE 20 MG eCW1 ([facility]) Prednisone 20 MG Oral Tablet PredniSONE 20 MG PredniSONE 20 MG 03/13/2020 12:00:00 AM EST 2.0 {tablets} suspended PredniSONE 20 MG eCW1 ([facility]) pantoprazole 40 MG Delayed Release Oral Tablet PANTOPRAZOLE SODIUM 03/11/2020 12:00:00 AM EST tablet,delayed release (DR/EC) 180 T BRYAN ONE TABLET BY MOUTH TWICE A DAY TAKE ONE TABLET BY MOUTH TWICE A DAY SOLD: 06/12/2020 [facility] atorvastatin 40 MG Oral Tablet ATORVASTATIN CALCIUM 03/11/2020 1 2:00:00 AM EST tablet 90 TAKE ONE TABLET BY MOUTH EVERY D AY TAKE ONE TABLET BY MOUTH EVERY DAY SOLD: 06/12/2020 [facility] atorvastatin 40 MG Oral Tablet ATORVASTATIN CALCIUM 03/11/2020 1 2:00:00 AM EST tablet 90 TAKE ONE TABLET BY MOUTH EVERY D AY TAKE ONE TABLET BY MOUTH EVERY DAY SOLD: 03/13/2020 [facility] Furosemide 20 MG Oral Tablet furosemide (LASIX) 20 MG tablet furosemide (LASIX) 20 MG tablet 03/11/2020 12:00:00 AM EST active Edema, unspecified typeBenign essential hypertension TAKE ONE TABLET BY MOUTH E [facility] Edema, unspecified type Benign essential hypertension pantoprazole [...] MOUTH EVERY DAY SOLD: 03/13/2020 [facility] 20 mg 03/08/2020 12:00:00 AM EST tablet 15 TAKE THREE TABLETS BY MOUTH EVERY DAY TAKE THREE TABLETS BY MOUTH EVERY DAY SOLD: 03/08/2020 [facility] 5 mg 02/28/2020 12:00:00 AM EST tablet 30 TAKE ONE TABLET BY MOUTH EVERY 6 HOURS NEEDED MAXIMUM DAILY DOSE = 2 TAKE ONE TABLET BY MOUTH EVERY 6 HOURS A S NEEDED MAXIMUM DAILY DOSE = 2 SOLD: 02/29/2020 [facility] Oxycodone Hydrochloride 5 MG Oral Tablet Oxycodone HCl 5 MG Oxycodone HCl 5 MG 02/28/2020 12:00:00 AM EST active Oxycodone HCl 5 MG eCW1 ([facility]) Oxycodone Hydrochloride 5 MG Oral Tablet Oxycodone HCl 5 MG Oxycodone HCl 5 MG 02/28/2020 12:00:00 AM EST active Oxycodone HCl 5 MG eCW1 ([facility]) Oxycodone Hydrochloride 5 MG Oral Tablet Oxycodone HCl 5 MG Oxycodone HCl 5 MG 02/28/2020 12:00:00 AM EST active Oxycodone HCl 5 MG eCW1 ([facility]) 5 mg 01/29/2020 12:00:00 AM EDT tablet [...] EDT active Oxycodone HCl 5 MG eCW1 ([facility]) Oxycodone Hydrochloride 5 MG Oral Tablet Oxycodone HCl 5 MG Oxycodone HCl 5 MG 01/27/2020 12:00:00 AM EDT active Oxycodone HCl 5 MG eCW1 ([facility]) Oxycodone Hydrochloride 5 MG Oral Tablet Oxycodone HCl 5 MG Oxycodone HCl 5 MG 01/27/2020 12:00:00 AM EDT active Oxycodone HCl 5 MG eCW1 ([facility]) Oxycodone Hydrochloride 5 MG Oral Tablet Oxycodone HCl 5 MG Oxycodone HCl 5 MG 01/27/2020 12:00:00 AM EDT active Oxycodone HCl 5 MG eCW1 ([facility]) 80 mg 01/20/2020 12:00:00 AM EDT tablet 90 TAKE ONE TABLET BY MOUTH THREE TIMES A DAY TAKE ONE TABLET BY MOUTH THREE TIMES A DAY SOLD: 03/28/2020 [facility] 80 mg 01/20/2020 12:00:00 AM EDT tablet 90 TAKE ONE TABLET BY MOUTH THREE TIMES A DAY TAKE ONE TABLET BY MOUTH THREE TIMES A DAY SOLD: 07/14/2020 [facility] 80 mg 01/20/2020 12:00:00 AM EDT tablet 90 TAKE ONE TABLET BY MOUTH THREE TIMES A DAY TAKE ONE TABLET BY MOUTH THREE TIMES A DAY SOLD: 01/23/2020 [facility] Verapamil hydrochloride 80 MG Oral Tablet Verapamil HC l 80 MG Verapamil HCl 80 MG 01/19/2020 12:00:00 AM EDT 1.0 {tablet} activ e Verapamil HCl 80 MG eCW1 ([facility]) Verapamil hydrochloride 80 MG Oral Tablet Verapamil HC l 80 MG Verapamil HCl 80 MG 01/19/2020 12:00:00 AM EDT 1.0 {tablet} activ e Verapamil HCl 80 MG eCW1 ([facility]) Verapamil hydrochloride 80 MG Oral Tablet Verapamil HC l 80 MG Verapamil HCl 80 MG 01/19/2020 12:00:00 AM EDT 1.0 {tablet} activ e Verapamil HCl 80 MG eCW1 ([facility]) Verapamil hydrochloride 80 MG Oral Tablet Verapamil HC l 80 MG Verapamil HCl 80 MG 01/19/2020 12:00:00 AM EDT 1.0 {tablet} activ e Verapamil HCl 80 MG eCW1 ([facility]) Verapamil hydrochloride 80 MG Oral Tablet Verapamil HC l 80 MG Verapamil HCl 80 MG 01/19/2020 12:00:00 AM EDT 1.0 {tablet} activ e Verapamil HCl 80 MG eCW1 ([facility]) Verapamil hydrochloride 80 MG Oral Tablet Verapamil HC l 80 MG Verapamil HCl 80 MG 01/19/2020 12:00:00 AM EDT 1.0 {tablet} activ e Verapamil HCl 80 MG eCW1 ([facility]) Verapamil hydrochloride 80 MG Oral Tablet Verapamil HC l 80 MG Verapamil HCl 80 MG 01/19/2020 12:00:00 AM EDT 1.0 {tablet} activ e Verapamil HCl 80 MG eCW1 ([facility]) Verapamil hydrochloride 80 MG Oral Tablet Verapamil HC l 80 MG Verapamil HCl 80 MG 01/19/2020 12:00:00 AM EDT 1.0 {tablet} activ e Verapamil HCl 80 MG eCW1 ([facility]) 2 % 01/13/2020 12:00:00 AM EDT cream 45 INSERT 1 APPLICATORFUL VAGINALLY AT BEDTIME FOR 7 DAYS INSERT 1 APPLICATORFUL VAGINALLY AT BEDTIME FOR 7 DAYS SOLD: 01/13/2020 [facility] 5 mg 12/31/2019 12:00:00 AM EDT [...] MUSCLE SPASM SOLD: 12/24/2019 [facility] 500 mg 12/16/2019 12:00:00 AM EDT tablet 14 TAKE ONE TABLET BY MOUTH TWICE A DAY WITH FOOD FOR 7 DAYS TAKE ONE TABLET BY MOUTH TWICE A DAY WIT H FOOD FOR 7 DAYS SOLD: 12/17/2019 [facility] 875-125 mg 12/16/2019 12:00:00 AM EDT tablet 14 TAKE ONE TABLET BY MOUTH TWICE A DAY FOR 7 DAYS TAKE ONE TABLET BY MOUTH TWICE A DAY FOR 7 DAYS SOLD: 12/17/2019 [facility] montelukast 10 MG Oral Tablet MONTELUKAST SODIUM 12/10/2019 12:0 0:00 AM EDT tablet 90 TAKE ONE TABLET BY MOUTH EVERY E VENING TAKE ONE TABLET BY MOUTH EVERY EVENING SOLD: 09/13/2020 [facility] montelukast 10 MG Oral Tablet [...] MOUTH EVERY EVENING SOLD: 12/13/2019 [facility] montelukast 10 MG Oral Tablet MONTELUKAST SODIUM 12/10/2019 12:0 0:00 AM EDT tablet 90 TAKE ONE TABLET BY MOUTH EVERY E VENING TAKE ONE TABLET BY MOUTH EVERY EVENING SOLD: 06/12/2020 [facility] atorvastatin 40 MG Oral Tablet atorvastatin (LIPITOR) 40 MG tablet atorvastatin (LIPITOR) 40 MG tablet 12/08/2019 12:00:00 AM EDT 40 mg Oral active Take 40 mg by mouth daily [facility] 300 mg 12/07/2019 12:00:00 AM EDT capsule [...] DAILY DOSE = 2 TABLETS SOLD: 11/22/2019 [facility] 40 mg 09/06/2019 12:00:00 AM EDT tablet,delayed release (DR/EC) 180 TAKE ONE TABLET BY MOUTH TWICE A DAY TAKE ONE TABLET BY MOUTH TWICE A DAY SOLD: 12/13/2019 [facility] atorvastatin 40 MG Oral Tablet ATORVASTATIN CALCIUM 09/06/2019 1 2:00:00 AM EDT tablet 90 TAKE ONE TABLET BY MOUTH EVERY D AY TAKE ONE TABLET BY MOUTH EVERY DAY SOLD: 12/13/2019 [facility] 20 mg 09/06/2019 12:00:00 AM EDT tablet 90 TAKE ONE TABLET BY MOUTH EVERY DAY TAKE ONE TABLET BY MOUTH EVERY DAY SOLD: 12/13/2019 [facility] Dicyclomine Hydrochloride 10 MG Oral Capsule dicyclomi ne (BENTYL) 10 MG capsule dicyclomine (BENTYL) 10 MG capsule abo rted BENTYL 10 MG ORAL CAPSULE [facility] atorvastatin 80 MG Oral Tablet atorvastatin (LIPITOR) 80 MG tablet atorvastatin (LIPITOR) 80 MG tablet 40 mg Oral aborted T bryan 40 mg by mouth daily [facility] meloxicam 15 MG Oral Tablet meloxicam (MOBIC) 15 MG ta blet meloxicam (MOBIC) 15 MG tablet 15 mg Oral aborted Take 15 mg by mouth daily [facility] Acetaminophen 325 MG / Hydrocodone Veronica trate 5 MG Oral Tablet HYDROcodone- acetaminophen (NORCO) 5-325 MG per tablet HYDROcodone-acetaminophen (NORCO) 5- 325 MG per tablet 1 {tbl} Oral aborted Take 1 tablet by mouth every 4 (four) hours as needed for pain [facility] Insurance Providers Payer name Policy type / Coverage type Policy ID Covered republican ID Covered republican's relationship to crawford Policy [place] Plan Information UHC UNITED MEDICARE DUAL G [id number] Self [id number] MEDICARE [id number] [facility] [id number] [facility] [id number] MEDICARE [id number] UHC UNITED MEDICARE DUAL G [id number] Self [id number] [facility] [id number] MEDICAID [id number] Self [id number] Medicaid P [id number] S [id number] Medicare [facility] Medicare Primary [id number] Self [id number] MEDICAID [id number] Ines [id number] MEDICAID [id number] [id number] Medicare [facility] Medicare Primary [id number] Self [id number] Medicaid [facility] Part B [id number] Self [id number] Medicare [facility] Part B [id number] Self [id number] Medicaid [facility] Part B [id number] Self [id number] Medicare [place] [facility] Part B [id number] Self [id number] [facility] [id number] SP [id number] MEDICARE [id number] SP [id number] [facility] [id number] SP [id number] [facility] Medicare Dual Complet Commercial [id number] Self [id number] [facility] [id number] SP [id number] MEDICAID [id number] SP [id number] MEDICAID [id number] Self [id number] PREFERRED INSURANCE E [id number] Self [id number] PREFERRED INSURANCE E [id number] InPf [id number] [place] [id number] Self [id number] [facility] MEDICAID [id number] Ines [id number] [employer] MEDICARE [id number] xxxxxxxxx [id number] HU[employer]NA MEDICARE ADVANTAGE G [id number] Self [id number] HUMANA MEDICARE [id number] Ines [id number] Medicaid Medicaid [id number] Self [id number] [employer]. [id number] Self [id number] ANSI-Medicaid [id number] ANSI-Not a Secondary Insurance [id number] ANSI-Medicaid [id number] ANSI-Medicaid [id number] ANSI-Not a Secondary Insurance [id number] ANSI-Medicaid [id number] ANSI-Not a Secondary Insurance [id number] ANSI-Medicaid [id number] ANSI-Not a Secondary Insurance [id number] ANSI-Not a Secondary Insurance [id number] ANSI-Medicaid [id number] ANSI-Not a Secondary Insurance [id number] ANSI-Medicaid [id number] [facility] Commercial [id number] Self [id number] ANSI-Not a Secondary Insurance [id number] ANSI-Medicaid [id number] ANSI-Medicaid [id number] ANSI-Not a Secondary Insurance [id number] ANSI-Not a Secondary Insurance [id number] ANSI-Medicaid [id number] ANSI-Not a Secondary Insurance [id number] ANSI-Medicaid [id number] Medicaid [facility] Part B [id number] Self [id number] [facility]/Medicare Commercial [id number] Self [id number] ANSI-Not a Secondary Insurance [id number] ANSI-Medicaid [id number] ANSI-Medicaid [id number] ANSI-Not a Secondary Insurance [id number] ANSI-Not a Secondary Insurance [id number] ANSI-Medicaid [id number] ANSI-Medicaid [id number] ANSI-Not a Secondary Insurance [id number] ANSI-Not a Secondary Insurance [id number] ANSI-Medicaid [id number] Medicaid [place] Medig[place] Part [place] [id number] Self [id number] [facility]/Medicare Commercial [id number] Self [id number] [facility] [id number] SP [id number] [facility] Health Maintenance Organization (HMO) [id number] Self [id number] Medicaid [place] Medigap Part B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 and patient management decisions. Results will bereported to government agencies as required.This test has received Emergency Use Authorization (EUA). We will continue to follow federal and state requirements for COVID-19 reporting. This test has been authorized only for the detection of RNAfrom SARS-CoV-2 virus and diagnosis of SARS-CoV-2 virus infection, notfor any other viruses or pathogens. This test is only authorized for the duration of the declaration that circumstances exist justifying the authorization of the emergency use of in vitro diagnostic tests for detection of SARS-CoV-2 virus and/or diagnosis of SARS-CoV-2 virusinfection under section 564(b)(1) of the Act, 21 U.S.C. section 360bbb-3(b)(1), unless the authorization is terminated or revoked sooner. We will continue to follow federal and state requirements for both notification of results and any confirmatory testing that is required by another agency. This test was developed and its performance characteristics determined by [id number] and verified at [facility]. It has not been cleared or approved by the U.S. Food and Drug Administration for diagnostic use. This test has been authorized by FDA under an EUA for use by authorized laboratories. Results should be used in conjunction with clinical findings, and should not form the sole basis for a diagnosis or treatment decision. Methods: SARS-CoV-2 Multiplex RT-PCR Assay ID Date Data Source [id number] 07/05/2020 06:15:00 PM EDT [facility] Name Value Range Interpretation Code Description Data Lynette e(s) Supporting Document(s) SARS-CoV-2 (COVID-19) N gene [Presence] in Respiratory specimen by JORI with probe detection NEGATIVE [facility] lab [facility] and reported by [facility]. ID Date Data Source [id number] 07/05/2020 12:00:00 AM EDT [facility] Name Value Range Interpretation Code Description Data Lynette rce(s) Supporting Document(s) Carestart Rapid COVID Antigen Test Negative [facility] This lab was reported by [facility]. ID Date Data Source [id number] 05/18/2020 02:28:00 PM EST [facility] ([facility] Name Value Range Interpretation Code Description Data Lynette rce(s) Supporting Document(s) Opiates [Mass/volume] in Urine Laboratory test result [facility] ([facility] Opiate test includes Codeine and Morphin e only. Performed at: [address] [id number] Photographs Curator: Yarely Torres MD, Phone: [phone] ID Date Data Source [id number] 05/18/2020 02:28:00 PM EST [facility] ([facility] [...] Confirmation Reflex test will be sent to [facility], [address] [place] [address], [facility] [id number] Phencyclidine Urine Reflex Laboratory test result [facility] ([facility] ALL PRESUMPTIVE POSITIVE FINDINGS AR E UNCONFIRMED THRESHOLD IN NG/ML AMPHETAMINES 1000 BARBITURATES 200 BENZODIAZEPINES 200 CANNABINOIDS (THC) 50 COCAINE METABOLITE 300 METHADONE 300 OPIATES 300 PHENCYCLIDINE 25 RESULTS ARE FOR MEDICAL PURPOSES ONLY. FOR A LIST OF CLOSELY RELATED COMPOUNDS CALL THE LAB ([id number]). URINE DRUG CLASSES THAT GIVE A POSITIVE RESULT WILL BE SENT OUT FOR QUANTITATIVE CONFIRMATION TO A REFERENCE LAB PROVIDED THERE IS A SUFFICIENT AMOUNT OF SPECIMEN REMAINING. ID Date Data Source [id number] 05/18/2020 02:22:00 PM EST [facility] ([facility] Name Value Range Interpretation Code Description Data Lynette rce(s) Supporting Document(s) Glucose, Fasting 91 mg/dL 70-100 [facility] Blood Urea Nitrogen 17 mg/dL 7-18 [facility] ([facility] Glomerular Filtration Rate Laboratory test result [facility] ([facility] <content>Units are mL/min/1.73 m2</content>
<content></content>
<content>Chronic Kidney Disease Staging per NKF:</content>
<content></content>
<content>Stage I & II GFR >=60 Normal to Mildly Decreased</content>
<content>Stage III GFR 30- 59 Moderately Decreased</content>
<content>Stage IV GFR 15-29 Severely Decreased</content>
<content>Stage V GFR <15 Very Little GFR Left</content>
<content>ESRD GFR <15 on FLIGHT MECHANIC</content>
<content></content> Creatinine For GFR 0.74 mg/dL 0.55-1.30 [facility] ([facility] Sodium Level 143 meq/L 136-145 [facility] Potassium Serum 4.9 meq/L 3.5-5.1 [facility] Chloride Level 107 meq/L 98-107 [facility] Carbon Dioxide Level 30 meq/L 21-32 [facility] ([facility] Anion Gap 6 meq/L 8-16 [facility] Calcium Level 9.6 mg/dL 8.5-10.1 [facility] ([facility] Ast/Sgot 27 U/L 7-37 [facility] Bilirubin,Total 0.4 mg/dL 0.2-1.0 [facility] ([facility] Alkaline Phosphatase 114 U/L 45-117 [facility] ([facility] Alt/SGPT 78 U/L 12-78 [facility] Total Protein 7.0 GM/DL 6.4-8.2 [facility] ([facility] Albumin 3.7 GM/DL 3.2-5.2 [facility] Albumin/Globulin Ratio 1.1 1.2-2.2 [facility] ([facility] ID Date Data Source [id number] 05/18/2020 02:22:00 PM EST [facility] ([facility] Name Value Range Interpretation Code Description Data Lynette rce(s) Supporting Document(s) Triglycerides Level 147 mg/dL [facility] HDL Cholesterol 51 mg/dL [facility] LDL Cholesterol 96 mg/dL [facility] Cholesterol Level 176 mg/dL [facility] ([facility] Non-HDL-C 125 mg/dL [facility] Cholesterol Risk Ratio 3.450 [facility] ID Date Data Source [id number] 05/18/2020 02:22:00 PM EST [facility] Name Value Range Interpretation Code Description Data Lynette rce(s) Supporting Document(s) Hemoglobin A1c/Hemoglobin.total in Blood 5.8 % [facility] <content>REFERENCE RANGES:</content><br/ ><content></content>
<content><=5.6% NORMAL</content>
<content>5.7-6.4% SUGGESTS IMPAIRED GLUCOSE METABOLISM/PREDIABETIC</content>
<content>>= 6.5% ABNORMAL</content>
<content></content> Estimated Average Glucose 120 mg/dL 60-110 [facility] ID Date Data Source [id number] 04/21/2020 01:36:00 PM EST [facility] Name Value Range Interpretation Code Description Data Lynette rce(s) Supporting Document(s) SARS coronavirus 2 RNA Not Detected [facility] This lab was ordered by [facility] and reported by [facility]. ID Date Data Source [id number] 03/07/2020 09:33:00 PM EST [facility] Name Value Range Interpretation Code Description Data Lynette rce(s) Supporting Document(s) SARS coronavirus 2 RNA [facility] This lab was ordered by [facility] and reported by [facility]. ID Date Data Source Urinalysis, no micro 01/12/2020 05:25:12 AM EDT eCW1 ([facility]) Name Value Range Interpretation Code Description Data Lynette rce(s) Supporting Document(s) 5 pH eCW1 ([facility]) pH neg Leukocyte eCW1 ([facility]) Leukocyte neg Spec gravity eCW1 ([facility]) Spec gravity neg Ketones eCW1 ([facility]) Ketones neg Glucose eCW1 ([facility]) Glucose neg Nitrate eCW1 ([facility]) Nitrate trace Protein eCW1 ([facility]) Protein neg Urobili eCW1 ([facility]) Urobili neg Bilirubin eCW1 ([facility]) Bilirubin neg Blood eCW1 ([facility]) Blood yes Internal QC Acceptable (Y/N) e CW1 ([facility]) Internal QC Acceptable (Y/N) Procedure Social History Code Duration Value Status Description Data Source(s ) Smoking 12/15/2020 12:00:00 AM EDT Patient has never smoked co mpleted Patient has never smoked [facility] Smoking 08/14/2020 12:00:00 AM EDT Never Smoker completed Never S moker eCW1 ([facility]) Smoking 05/31/2020 12:00:00 AM EST Never Smoker completed Never S moker eCW1 ([facility]) Smoking 05/31/2020 12:00:00 AM EST Never Smoker completed Never S moker eCW1 ([facility]) Smoking 05/11/2020 12:00:00 AM EST Never Smoker completed Never S moker eCW1 ([facility]) Smoking 05/11/2020 12:00:00 AM EST Never Smoker completed Never S moker eCW1 ([facility]) Alcohol intake 05/03/2020 12:00:00 AM EST No completed [facility] Smoking 05/03/2020 12:00:00 AM EST Never smoker completed Never s moker [facility] Smoking 04/26/2020 12:00:00 AM EST Never Smoker completed Never S moker eCW1 ([facility]) Smoking 04/26/2020 12:00:00 AM EST Never Smoker completed Never S moker eCW1 ([facility]) Smoking 04/26/2020 12:00:00 AM EST Never Smoker completed Never S moker eCW1 ([facility]) Smoking 03/29/2020 12:00:00 AM EST Never Smoker completed Never S moker eCW1 ([facility]) Smoking 03/29/2020 12:00:00 AM EST Never Smoker completed Never S moker eCW1 ([facility]) Smoking 03/29/2020 12:00:00 AM EST Never Smoker completed Never S moker eCW1 ([facility]) Smoking 03/29/2020 12:00:00 AM EST Never Smoker completed Never S moker eCW1 ([facility]) Smoking 03/29/2020 12:00:00 AM EST Never Smoker completed Never S moker eCW1 ([facility]) Smoking 02/18/2020 12:00:00 AM EST Never Smoker completed Never S moker eCW1 ([facility]) Smoking 02/18/2020 12:00:00 AM EST Never Smoker completed Never S moker eCW1 ([facility]) Smoking 02/18/2020 12:00:00 AM EST Never Smoker completed Never S moker eCW1 ([facility]) Smoking 02/18/2020 12:00:00 AM EST Never Smoker completed Never S moker eCW1 ([facility]) Smoking 02/18/2020 12:00:00 AM EST Never Smoker completed Never S moker eCW1 ([facility]) Smoking 01/19/2020 12:00:00 AM EDT Never Smoker completed Never S moker eCW1 ([facility]) Smoking 01/19/2020 12:00:00 AM EDT Never Smoker completed Never S moker eCW1 ([facility]) Smoking 01/19/2020 12:00:00 AM EDT Never Smoker completed Never S moker eCW1 ([facility]) Vital Signs ID Date Data Source [id number] Name Value Range Interpretation Code Description Data Source(s) Systolic blood pressure 119 mm[Hg] 119 mm[Hg] M [facility] ([facility] Body height 61.50 [in_i] 61.50 [in_i] [facility] ([facility] 5'1.50" Body weight 236.50 [lb_av] 236.50 [lb_av] [facility] ([facility] Oxygen saturation in Arterial blood by Pulse oximetry 98 % 98 % [facility] Diastolic blood pressure 93 mm[Hg] 93 mm[Hg] [facility] Diastolic blood pressure 75 mm[Hg] 75 mm[Hg] [facility] Body temperature 97.5 [degF] 97.5 [degF] [facility] Respiratory rate 16 /min 16 /min [facility] ( [facility] Draper body weight 105 [lb_av] 105 [lb_av] [facility] T ([facility] Body mass index (BMI) [Ratio] 44.0 kg/m2 44.0 k g/m2 [facility] Systolic blood pressure 132 mm[Hg] 132 mm[Hg] M [facility] ([facility] Heart rate 78 /min 78 /min [facility] Systolic blood pressure 123 mm[Hg] 123 mm[Hg] M [facility] ([facility] Diastolic blood pressure 80 mm[Hg] 80 mm[Hg] [facility] Heart rate 76 /min 76 /min [facility] Body temperature 97.3 [degF] 97.3 [degF] [facility] Respiratory rate 16 /min 16 /min [facility] ( [facility] Body height 61.50 [in_i] 61.50 [in_i] [facility] ([facility] 5'1.50" Body weight 236.00 [lb_av] 236.00 [lb_av] [facility] ([facility] Draper body weight 105 [lb_av] 105 [lb_av] [facility] ([facility] Body mass index (BMI) [Ratio] 43.9 kg/m2 43.9 k g/m2 [facility] Systolic blood pressure 119 mm[Hg] 119 mm[Hg] M [facility] ([facility] Diastolic blood pressure 77 mm[Hg] 77 mm[Hg] [facility] Heart rate 84 /min 84 /min [facility] Body temperature 98.0 [degF] 98.0 [degF] [facility] ([facility] Respiratory rate 14 /min 14 /min [facility] ( [facility] Body height 61.50 [in_i] 61.50 [in_i] [facility] 5'1.50" Body weight 232.50 [lb_av] 232.50 [lb_av] [facility] ([facility] Draper body weight 105 [lb_av] 105 [lb_av] [facility] ([facility] Body mass index (BMI) [Ratio] 43.2 kg/m2 43.2 k g/m2 [facility] Systolic blood pressure 130 mm[Hg] 130 mm[Hg] M EDENT ([facility], ) Diastolic blood pressure 88 mm[Hg] 88 mm[Hg] [facility] ([facility], ) Body height 65 [in_i] 65 [in_i] [facility] ([facility], ) 5'5" Body weight 230.00 [lb_av] 230.00 [lb_av] [facility] Body mass index (BMI) [Ratio] 38.3 kg/m2 38.3 k g/m2 [facility] ([facility]) Draper body weight 125 [lb_av] 125 [lb_av] [facility] T ([facility]) Body weight 104.328 kg 104.328 kg [facility] ([facility]) Body surface area Derived from formula 2.10 m2 2.10 m2 [facility] ([facility]) Systolic blood pressure 112 mm[Hg] 112 mm[Hg] M [facility] ([facility] Diastolic blood pressure 74 mm[Hg] 74 mm[Hg] [facility] Heart rate 91 /min 91 /min [facility] Body temperature 97.6 [degF] 97.6 [degF] [facility] Respiratory rate 18 /min 18 /min [facility] ( [facility] Body height 61.50 [in_i] 61.50 [in_i] [facility] ([facility] 5'1.50" Body weight 237.00 [lb_av] 237.00 [lb_av] [facility] T ([facility] Oxygen saturation in Arterial blood by Pulse oximetry 98 % 98 % [facility] Draper body weight 105 [lb_av] 105 [lb_av] [facility] ([facility] Body mass index (BMI) [Ratio] 44.1 kg/m2 44.1 k g/m2 [facility] ([facility] Body weight 234.38 [lb_av] 234.38 [lb_av] [facility] T ([facility] Systolic blood pressure 114 mm[Hg] 114 mm[Hg] M [facility] ([facility] Diastolic blood pressure 72 mm[Hg] 72 mm[Hg] [facility] Heart rate 85 /min 85 /min [facility] Body temperature 97.3 [degF] 97.3 [degF] [facility] Respiratory rate 17 /min 17 /min [facility] ( [facility] Body height 61.50 [in_i] 61.50 [in_i] [facility] ([facility] 5'1.50" Oxygen saturation in Arterial blood by Pulse oximetry 98 % 98 % [facility] Draper body weight 105 [lb_av] 105 [lb_av] [facility] T ([facility] Body mass index (BMI) [Ratio] 43.6 kg/m2 43.6 k g/m2 [facility] Heart rate 80 /min 80 /min [facility] Respiratory rate 16 /min 16 /min [facility] ( [facility] Oxygen saturation in Arterial blood by Pulse oximetry 98 % 98 % [facility] Body temperature 97.6 [degF] 97.6 [degF] [facility] Body height 61.50 [in_i] 61.50 [in_i] [facility] ([facility] 5'1.50" Diastolic blood pressure 69 mm[Hg] 69 mm[Hg] [facility] Body weight 232.38 [lb_av] 232.38 [lb_av] [facility] T ([facility] Draper body weight 105 [lb_av] 105 [lb_av] [facility] T ([facility] Body mass index (BMI) [Ratio] 43.2 kg/m2 43.2 k g/m2 [facility] Systolic blood pressure 110 mm[Hg] 110 mm[Hg] M [facility] ([facility] Body weight 235.38 [lb_av] 235.38 [lb_av] [facility] T ([facility] Systolic blood pressure 120 mm[Hg] 120 mm[Hg] M [facility] ([facility] Diastolic blood pressure 82 mm[Hg] 82 mm[Hg] [facility] Heart rate 93 /min 93 /min [facility] Body temperature 98.5 [degF] 98.5 [degF] [facility] Respiratory rate 18 /min 18 /min [facility] ( [facility] Body height 61.50 [in_i] 61.50 [in_i] [facility] ([facility] 5'1.50" Oxygen saturation in Arterial blood by Pulse oximetry 98 % 98 % [facility] ([facility] Draper body weight 105 [lb_av] 105 [lb_av] [facility] T ([facility] Body mass index (BMI) [Ratio] 43.7 kg/m2 43.7 k g/m2 [facility] ([facility] Systolic blood pressure 107 mm[Hg] 107 mm[Hg] M [facility] ([facility] Diastolic blood pressure 85 mm[Hg] 85 mm[Hg] [facility] Heart rate 100 /min 100 /min [facility] Body temperature 97.7 [degF] 97.7 [degF] [facility] Respiratory rate 18 /min 18 /min [facility] ( [facility] Body height 61.50 [in_i] 61.50 [in_i] [facility] ([facility] 5'1.50" Body weight 232.50 [lb_av] 232.50 [lb_av] [facility] T ([facility] Oxygen saturation in Arterial blood by Pulse oximetry 97 % 97 % [facility] ([facility] Draper body weight 105 [lb_av] 105 [lb_av] [facility] T ([facility] Body mass index (BMI) [Ratio] 43.2 kg/m2 43.2 k g/m2 [facility] Body weight 235 [lb_av] 235 [lb_av] eCW1 ([facility]) Body weight 106.59 kg 106.59 kg W1 ([facility]) Body height 62 [in_i] 62 [in_i] eCW1 ([facility]) Body mass index (BMI) [Ratio] 42.98 kg/m2 42.98 kg/m2 eCW1 ([facility]) Systolic blood pressure 115 mm[Hg] 115 mm[Hg] e CW1 ([facility]) Diastolic blood pressure 74 mm[Hg] 74 mm[Hg] eCW1 ([facility]) Systolic blood pressure 139 mm[Hg] 139 mm[Hg] M [facility]ENT ([facility] Diastolic blood pressure 84 mm[Hg] 84 mm[Hg] [facility] Heart rate 83 /min 83 /min [facility] Body temperature 97.4 [degF] 97.4 [degF] [facility] ([facility] Respiratory rate 18 /min 18 /min [facility] ( [facility] Body height 61.50 [in_i] 61.50 [in_i] [facility] ([facility] 5'1.50" Body weight 237.50 [lb_av] 237.50 [lb_av] [facility] T ([facility] Oxygen saturation in Arterial blood by Pulse oximetry 98 % 98 % MEDENT ([facility] [place] body weight 105 [lb_av] 105 [lb_av] MEDEN T ([facility] Body mass index (BMI) [Ratio] 44.1 kg/m2 44.1 k g/m2 [facility] ([facility] Body weight [lb_av] eCW1 ([facility]) Body height 62 [in_i] 62 [in_i] eCW1 ([facility]) Body mass index (BMI) [Ratio] 43.71 kg/m2 43.71 kg/m2 eCW1 ([facility]) Heart rate 90 /min 90 /min eCW1 ([facility]) Respiratory rate 20 /min 20 /min eCW1 ([facility]) Body temperature 97.3 [degF] 97.3 [degF] eCW1 ( [facility]) Systolic blood pressure 132 mm[Hg] 132 mm[Hg] e CW1 ([facility]) Diastolic blood pressure 80 mm[Hg] 80 mm[Hg] eCW1 ([facility]) Systolic blood pressure 114 mm[Hg] 114 mm[Hg] [facility] Diastolic blood pressure 74 mm[Hg] 74 mm[Hg] [facility] Heart rate 89 /min 89 /min [facility] Body height 165.1 cm 165.1 cm [facility] Body weight 107.049 kg 107.049 kg [facility] Body mass index (BMI) [Ratio] 39.27 kg/m2 39.27 kg/m2 [facility] Oxygen saturation in Arterial blood by Pulse oximetry 98 % 98 % [facility] Body weight 239 [lb_av] 239 [lb_av] W1 ([facility], 1928–1983) Body height 62 [in_i] 62 [in_i] eCW1 ([facility]) Body mass index (BMI) [Ratio] 43.71 kg/m2 43.71 kg/m2 eCW1 ([facility]) Heart rate 106 /min 106 /min eCW1 ([facility]) Respiratory rate 20 /min 20 /min W1 ([facility]) Body temperature 97.7 [degF] 97.7 [degF] W1 ( [facility]) Systolic blood pressure 136 mm[Hg] 136 mm[Hg] e CW1 ([facility]) Diastolic blood pressure 86 mm[Hg] 86 mm[Hg] eCW1 ([facility]) Body weight 245 [lb_av] 245 [lb_av] W1 (Formerly [facility], 1928–1983) Body height 62 [in_i] 62 [in_i] eCW1 ([facility]) Body mass index (BMI) [Ratio] 44.81 kg/m2 44.81 kg/m2 [facility] ([facility]) Systolic blood pressure 130 mm[Hg] 130 mm[Hg] M EDENT ([facility]) Diastolic blood pressure 80 mm[Hg] 80 mm[Hg] MEDENT ([facility]) Heart rate 70 /min 70 /min MEDENT ([facility]) Respiratory rate 14 /min 14 /min MEDENT ( [facility] ) Body height 65 [in_i] 65 [in_i] MEDENT ([facility] ) 5'5" Body weight 240.00 [lb_av] 240.00 [lb_av] MEDEN T ([facility] ) Body mass index (BMI) [Ratio] 39.9 kg/m2 39.9 k g/m2 [facility] ([facility] ) [place] body weight 125 [lb_av] 125 [lb_av] MEDEN T ([facility] ) Body weight 245 [lb_av] 245 [lb_av] eCW1 ([facility], 1928–1983) Body height 62 [in_i] 62 [in_i] eCW1 ([facility]) Body mass index (BMI) [Ratio] 44.81 kg/m2 44.81 kg/m2 W1 ([facility]) Heart rate 100 /min 100 /min eCW1 ([facility]) Respiratory rate 20 /min 20 /min eCW1 ([facility]) Body temperature 96.7 [degF] 96.7 [degF] eCW1 ( [facility]) Systolic blood pressure 134 mm[Hg] 134 mm[Hg] e CW1 ([facility]) Diastolic blood pressure 88 mm[Hg] 88 mm[Hg] eCW1 ([facility]) Body weight 244.6 [lb_av] 244.6 [lb_av] eCW1 ([facility]) Body height 62 [in_i] 62 [in_i] eCW1 ([facility]) Body mass index (BMI) [Ratio] 44.73 kg/m2 44.73 kg/m2 eCW1 ([facility]) Heart rate 73 /min 73 /min eCW1 ([facility]) Respiratory rate 18 /min 18 /min eCW1 ([facility]) Body temperature 96.7 [degF] 96.7 [degF] eCW1 ( [facility]) Body weight 244.2 [lb_av] 244.2 [lb_av] eCW1 ([facility]) Body height 62 [in_i] 62 [in_i] eCW1 ([facility]) Body mass index (BMI) [Ratio] 44.66 kg/m2 44.66 kg/m2 eCW1 ([facility]) Heart rate 98 /min 98 /min eCW1 ([facility]) Respiratory rate 18 /min 18 /min eCW1 ([facility]) Body temperature 98.3 [degF] 98.3 [degF] eCW1 ( [facility]) Systolic blood pressure 130 mm[Hg] 130 mm[Hg] e CW1 ([facility]) Diastolic blood pressure 80 mm[Hg] 80 mm[Hg] eCW1 ([facility]) Body weight 243 [lb_av] 243 [lb_av] eCW1 ([facility] 1928[facility]) Body height 62 [in_i] 62 [in_i] eCW1 ([facility]) Body mass index (BMI) [Ratio] 44.44 kg/m2 44.44 kg/m2 eCW1 ([facility]) Heart rate 104 /min 104 /min eCW1 ([facility]) Respiratory rate 18 /min 18 /min eCW1 ([facility]) Body temperature 97.9 [degF] 97.9 [degF] eCW1 ( [facility]) Systolic blood pressure 142 mm[Hg] 142 mm[Hg] e CW1 ([facility]) Diastolic blood pressure 80 mm[Hg] 80 mm[Hg] eCW1 ([facility]) Patient Treatment Plan of Care Planned Activity Planned Date Details Description Data Source (s) doxycycline hyclate 100 MG Oral Capsule 05/01/2020 12:00:00 AM EST eCW1 ([facility]) topiramate 50 MG Oral Tablet 05/01/2020 12:00:00 AM EST [facility] doxycycline hyclate 100 MG Oral Capsule 05/01/2020 12:00:00 AM EST eCW1 ([facility]) Sumatriptan 100 MG Oral Tablet 04/22/2020 12:00:00 AM EST [facility] Oxycodone Hydrochloride 5 MG Oral Tablet 04/21/2020 12:00:00 AM EST eCW1 ([facility]) Alprazolam 0.5 MG Oral Tablet 04/04/2020 12:00:00 AM EST [facility] Metoprolol Tartrate 25 MG Oral Tablet 03/30/2020 12:00:00 AM EST [facility] Oxycodone Hydrochloride 5 MG Oral Tablet 03/27/2020 12:00:00 AM EST eCW1 ([facility]) Verapamil hydrochloride 80 MG Oral Tablet 03/27/2020 12:00:00 AM ES T [facility] Prednisone 20 MG Oral Tablet 03/13/2020 12:00:00 AM EST eCW1 ([facility]) Prednisone 20 MG Oral Tablet 03/13/2020 12:00:00 AM EST eCW1 ([facility]) Furosemide 20 MG Oral Tablet 03/11/2020 12:00:00 AM EST [facility] Oxycodone Hydrochloride 5 MG Oral Tablet 02/28/2020 12:00:00 AM EST eCW1 ([facility]) Oxycodone Hydrochloride 5 MG Oral Tablet 02/28/2020 12:00:00 AM EST eCW1 ([facility]) Oxycodone Hydrochloride 5 MG Oral Tablet 02/28/2020 12:00:00 AM EST eCW1 ([facility]) Oxycodone Hydrochloride 5 MG Oral Tablet 01/27/2020 12:00:00 AM EDT eCW1 ([facility]) Oxycodone Hydrochloride 5 MG Oral Tablet 01/27/2020 12:00:00 AM EDT eCW1 ([facility]) Oxycodone Hydrochloride 5 MG Oral Tablet 01/27/2020 12:00:00 AM EDT eCW1 ([facility]) Verapamil hydrochloride 80 MG Oral Tablet 01/19/2020 12:00:00 AM ED T eCW1 ([facility]) Verapamil hydrochloride 80 MG Oral Tablet 01/19/2020 12:00:00 AM ED T eCW1 ([facility]) Verapamil hydrochloride 80 MG Oral Tablet 01/19/2020 12:00:00 AM ED T eCW1 ([facility]) atorvastatin 40 MG Oral Tablet 12/08/2019 12:00:00 AM EDT [facility] Dicyclomine Hydrochloride 10 MG Oral Capsule [facility] Acetaminophen 325 MG / Hydrocodone Bitartrate 5 MG Oral Tablet [facility] atorvastatin 80 MG Oral Tablet [facility] meloxicam 15 MG Oral Tablet [facility]
[2021-01-18] MEDS ORDERED: fentaNYL 100 MCG/2 ML INJECTION (J3010) As Ordered ONE (12:22)
[2021-01-18] MEDS ORDERED: propofoL 200 MG/20 ML VIAL As Ordered ONE (12:22)
[2021-01-18] MEDS ORDERED: LIDOCAINE 2% 100MG/5ML SDV (FOR ANES.) As Ordered ONE (12:23)
--- NOTE | 2021-01-18 13:59 | ROOR ---
Patient Name: Renea Regalado Procedure Date: 01/18/2021 1:30 PM Date of : 1975 Age: 45 Room: [facility] Gender: Female Note Status: Finalized Procedure: Upper GI endoscopy Indications: Dyspepsia Providers: Nicolas Morris MD Referring MD: Gladys Franz MD Requesting Provider: Medicines: Monitored Anesthesia Care Complications: No immediate complications. Procedure: Pre-Anesthesia Assessment: - Prior to the procedure, a History and Physical was performed, and patient medications and allergies were reviewed. The patient is competent. The risks and benefits of the procedure and the sedation options and risks were discussed with the patient. All questions were answered and informed consent was obtained. Patient identification and proposed procedure were verified by the physician, the nurse and the anesthesiologist in the procedure room. Mental Status Examination: alert and oriented. Airway Examination: normal oropharyngeal airway and neck mobility. Prophylactic Antibiotics: The patient does not require prophylactic antibiotics. Prior Anticoagulants: The patient has taken no previous anticoagulant or antiplatelet agents. ASA Grade Assessment: II - A patient with mild systemic disease. After reviewing the risks and benefits, the patient was deemed in satisfactory condition to undergo the procedure. The anesthesia plan was to use monitored anesthesia care (MAC). Immediately prior to administration of medications, the patient was re-assessed for adequacy to receive sedatives. The heart rate, respiratory rate, oxygen saturations, blood pressure, adequacy of pulmonary ventilation, and response to care were monitored throughout the procedure. The physical status of the patient was re-assessed after the procedure. The Endoscope was introduced through the mouth, and advanced to the second part of duodenum. The upper GI endoscopy was accomplished without difficulty. The patient tolerated the procedure well. Findings: The examined esophagus was normal. The Z-line was regular and was found at the gastroesophageal junction. Scattered moderate inflammation characterized by erythema and granularity was found in the gastric antrum. Biopsies were taken with a cold forceps for Helicobacter pylori testing. Verification of patient identification for the specimen was done by the physician and nurse using the patient's name, date and medical record number. Estimated blood loss was minimal. Flattening was found in the duodenal bulb, flattening was found in the second portion of the duodenum and thickened folds were found in the second portion of the duodenum. Biopsies for histology were taken with a cold forceps for evaluation of celiac disease. Impression: - Normal esophagus. - Z-line regular, at the gastroesophageal junction. - Gastritis. Biopsied. - Duodenal mucosal changes seen, suspicious for celiac disease. Biopsied. Recommendation: - Patient has a contact number available for emergencies. The signs and symptoms of potential delayed complications were discussed with the patient. Return to normal activities tomorrow. Written discharge instructions were provided to the patient. - High fiber diet. - Continue present medications. - Await pathology results. - Return to GI clinic in [facility] (address: [address] [place] [address], [facility], [place], [place],[address]) in 4 -- 6 weeks. Please call GI clinic @ [phone] for apppointment date and time. - Return to primary care physician. Procedure Code(s): --- Professional --- 81210, Esophagogastroduodenoscopy, flexible, transoral; with biopsy, single or multiple Diagnosis Code(s): --- Professional --- K29.70, Gastritis, unspecified, without bleeding K31.89, Other diseases of stomach and duodenum R10.13, Epigastric pain CPT copyright 2019 [employer]. All rights reserved. The codes documented in this report are preliminary and upon clinical assoc review may be revised to meet current compliance requirements. Nicolas Morris MD Nicolas Morris MD 01/18/2021 1:58:33 PM Electronically signed by Nicolas Morris MD Number of Addenda: 0 Note Initiated On: 01/18/2021 1:30 PM Estimated Blood Loss: Estimated blood loss was minimal.
[2021-01-18 14:10] VITALS: BP 115/81
== END 2021-01-18 14:35 | disposition home or self-care (01) ==
LOC: M OPP 11:51
PROVIDERS: ATTEND Internal Medicine Gastroenterology
DX: K29.70 Gastritis, unspecified, without bleeding (principal); K31.89 Other diseases of stomach and duodenum; R10.13 Epigastric pain; Z79.899 Other long term (current) drug therapy; Z88.8 Allergy status to other drugs, medicaments and biological substances; Z86.19 Personal history of other infectious and parasitic diseases; Z87.11 Personal history of peptic ulcer disease
CPT/HCPCS: 43239; 88305; J3010

== ENCOUNTER 2021-01-30 13:44 | Emergency (ER) | payer OTHER, MEDICAID ==
[~2021-01-30] VITALS: Ht 165.1 cm; Wt 106.9 kg
[~2021-01-30 13:44] MED LIST changes: -NS 1,000 ML IV ONE
--- OUTSIDE RECORDS SUMMARY | 2021-01-30 13:51 | CCD ---
Author Author [facility] Organization [facility] Address Unknown Phone Unavailable Care Team Providers Care Bench Manager Name Role Phone Katt Escobar Unavailable PROBLEMS Type Condition ICD9-CM Code ZEO87-QO Code Onset Dates Condition S tatus W/U Status Risk SNOMED Code Notes Problem Asthma, extrinsic, unspecified asthma severity, uncomp licated J45.909 Active confirmed 951126986 Problem Gastro-esophageal reflux disease without esophagitis K21.9 Active confirmed 652110518 Problem Type 2 diabetes mellitus without complications E11 .9 Active confirmed 030069857 Problem Obstructive sleep apnea (adult) (pediatric) G47.33 Active confirmed 98325105 Problem Essential (primary) hypertension I10 Active conf irmed 08598428 Problem Facet arthropathy, 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 Active confirme d 768667456 Problem Myalgia, other site M79.18 Active confirmed 64144470 Problem Morbid (severe) obesity due to excess calories E66 .01 Active confirmed 83916355357913 Problem Duodenal ulcer disease K26.9 Active confirmed 70658618 Problem Other chronic pain G89.29 Active confirmed 8 1467174 Problem Irritable bowel syndrome with both constipation and diarrh ea K58.2 Active confirmed 99233901 Problem Low back pain M54.5 Active confirmed 464993 009 Problem Irritable bowel syndrome with diarrhea K58.0 A ctive confirmed 446914978 Problem Primary osteoarthritis of right knee M17.11 Act waqas confirmed 344948451425801 Problem Cervicalgia M54.2 Active confirmed 71670203 63070 Problem Facet arthropathy, cervical M47.812 Active confirme d 548386247 Problem Pain in thoracic spine M54.6 Active confirmed 908016987 Problem Migraine without status migr ainosus, not intractable, unspecified migraine type G43.909 Active confirmed 41637636 Problem Early menopause E28.319 Active confirmed 373 702550 Problem Surgical menopause, symptomatic E89.41 Active confi rmed 260011100 Problem Urge incontinence N39.41 Active confirmed 87 531942 Problem Other hyperlipidemia E78.4 Active confirmed 61581587 Problem Severe episode of recurrent major depressive disorder, without psychotic features F33.2 Active confirmed 47147141 Problem New daily persistent headache G44.52 Active co nfirmed 606574157437222 Problem Acquired absence of ovaries, bilateral Z90.722 A ctive confirmed 646179864 Problem Acquired absence of both cervix and uterus Z90.710 Active confirmed 010566069 Problem Vaginal bleeding N93.9 Active confirmed 289 045611 ALLERGIES Allergen (clinical drug ingredient) Drug/Non Drug Allergy do cumented on EMR Reaction Allergy Type Onset Date Status amitriptyline Amitriptyline HCl(NDC Code:[address]-03) Hives Dr elyse Allergy Active cats Eyes water Non Drug Allergy Active acetaminophen / oxycodone Percocet(NDC Code:[address]-54) Hives Drug Allergy Active ENCOUNTERS from 1975 to 2021-01-18 Encounter Location Date Provider Diagnosis [facility] [address] [phone] [place] [address] Jan, Katt Escobar Urge incontinence N3 9.41 IMMUNIZATIONS Vaccine Route Administration Date Status TDAP [...] never smoker never smoker REASON FOR REFERRAL from 1975 to 2021-01-18 Reason 45 year old female desires u rology consult for new onset of urinary incontinence. please evaluate and manage as necessary, thank you Diagnosis 1 Urge incontinence (N39.41) Referral Organization [facility] Referring Provider First Name Katt Referring Provider Last Name Luz Referring Provider Specialty OB - Gynecology Referred Organization [facility] Urology Referred Provider Sydney Rock Rachel Referred Address [address] [place] [address] ,[phone] ,[place], [place],[address] Referred Provider Specialty Urology Referral Priority Routine VITAL SIGNS Weight 235 lbs Jan, Height 62 in Jan, BMI 42.98 kg/m2 Jan, Blood pressure systolic 122 mm Hg Jan, Blood pressure diastolic 84 mm Hg Jan, MEDICATIONS Medication SIG (Take, Route, Frequency, Duration) Notes Start Da te End Date Status Verapamil HCl 80 MG 1 tablet Orally Three times a day for 30 day(s) Active Furosemide 20 MG 1 tablet Orally Once a day for 90 day(s) Oct, Active ZyrTEC Allergy 10 mg 1 tablet as needed Orally Once a day for 90 Active Nebulizer Compressor - as directed _Dx:J45.909 _ for 30 Days Mar, Active Topiramate 50 MG 2 tablet Orally Once a day Active Singulair 10 mg 1 tablet in the evening Orally Once a day for 90 Active Robaxin-750 750 MG 1 tablet Orally Q8H PRN Mar, Active Lancets 1 as directed intradermally daily dx:E11.9 for 50 days Jun, Active Acetaminophen 500 MG 2 caps as needed Orally every 6 hrs Active IBU-200 200 MG 2 tabs with food or milk as needed Orally Three time s a day Not-Taking ProAir HFA 108 (90 Base) MCG/ACT inhale two puffs by m outh every 4 hours as needed for 30 days Active One Touch Ultra Test Strips 1 as directed intradermall y daily dx: E11.9 for 50 days Jun, Active Gabapentin 300 MG 1 capsule Orally three times a day for 30 days Nov, Active Metoprolol Tartrate 25 MG 1 tablet with food Orally Twice a day for 30 day(s) Mar, Active predniSONE 20 MG 2 tablets Orally Once a day for 2 days Mar, Not-Taking DULoxetine HCl 60 MG 1 capsule Orally Once a day for 30 days Sep, Active Nebulizers - as directed _Dx J45.909 _ for 30 Days Mar, Active Blood Glucose System Binu - meter Dx: E11.9 Daily for 30 Days Jun, Active oxyCODONE HCl 5 MG 1 tablet as needed MDD 2 Orally every 6 hrs f or 30 Days Apr, Active Protonix 40 MG 1 tablet Orally twice daily for 90 Active Atorvastatin Calcium 40 MG 1 tablet Orally Once a day for 90 Active Doxycycline Hyclate 100 MG 1 capsule Orally bid for 7 day(s) Apr, Not-Taking Albuterol Sulfate (2.5 MG/3ML) 0.083% 3 ml Inhalation DX:J45.909 Three times a day as needed for 30 days Active SUMAtriptan Succinate 100 MG 1 tablet at least 2 hours between doses as needed Orally Twice a day Active PROCEDURES No Information RESULTS No Results REASON FOR VISIT bladder issues MEDICAL (GENERAL) HISTORY Type Description Date Medical [...] History perimenopause Medical History Chest pain - Inspector Plumbing Dr Castañeda - Nuclear stress test - [...] Notes Treatment Notes Treatm ent Clinical Notes Jan, Urge incontinence (ICD-10 - N39.41) PLAN OF TREATMENT Treatment Notes Test Name Order Date URINE CULTURE 2021-01-17 Referrals Referral Date Details 45 year old female desires u rology consult for new onset of urinary incontinence. please evaluate and manage as necessary, thank you, [place] Rock, [address] , [place], [address], Next Appt Details prn Reason:prn Provider Name:Tho Shaffer, 2021-04-11 10:00:00 AM, [address], , [place], [address], Follow Up:prnprn Insurance Providers Payer Name Payer Address Payer Phone Insured Name Patient Relati onship to Insured Coverage Start Date Coverage End Date [employer] GOLD [address] [address] [facility] [id number] SEJAL SCHERER self MEDICAID [place] [address] [facility] [id number] SEJAL SCHERER self
--- OUTSIDE RECORDS SUMMARY | 2021-01-30 13:54 | CCD ---
Author Author [facility] Organization [facility] Address Unknown Phone Unavailable Care Team Providers Care Molding Machine Operator Name Role Phone Priyankcan J Shaina CLIENT DIRECTOR Unavailable Unavailable Kocan, J Shaina CLIENT DIRECTOR Unavailable Unavailable Kocan, J Shaina CLIENT DIRECTOR Unavailable Unavailable Kocan, J Shaina CLIENT DIRECTOR Unavailable Unavailable Kocan, J Shaina CLIENT DIRECTOR Unavailable Unavailable Kocan, J Shaina CLIENT DIRECTOR Unavailable Unavailable Kocan, J Shaina CLIENT DIRECTOR Unavailable Unavailable Kocan, J Shaina CLIENT DIRECTOR Unavailable Unavailable Kocan, J Shaina CLIENT DIRECTOR Unavailable Unavailable Kocan, J Shaina CLIENT DIRECTOR Unavailable Unavailable Kocan, J Shaina CLIENT DIRECTOR Unavailable Unavailable Kocan, J Shaina CLIENT DIRECTOR Unavailable Unavailable Kocan, J Shaina CLIENT DIRECTOR Unavailable Unavailable Kevin Gagnon PA-C Unavailable Unavailabl e Petrancosta, Bladen Regina PA-C Unavailable Unavailabl e Petrancosta, Bladen Regina PA-C Unavailable Unavailabl e Petrancosta, Bladen Regina PA-C Unavailable Unavailabl e Petrancosta, Bladen Regina PA-C Unavailable Unavailabl e Petrancosta, Bladen Regina PA-C Unavailable Unavailabl e Petrancosta, Bladen Regina PA-C Unavailable Unavailabl e Petrancosta, Bladen Regina PA-C Unavailable Unavailabl e Petrancosta, Bladen Regina PA-C Unavailable Unavailabl e Petrancosta, Bladen Regina PA-C Unavailable Unavailabl e Petrancosta, Bladen Regina PA-C Unavailable Unavailabl e Petrancosta, Bladen Regina PA-C Unavailable Unavailabl e Petrancosta, Bladen Regina PA-C Unavailable Unavailabl e Petrancosta, Bladen Regina PA-C Unavailable Unavailabl e Petrancosta, Bladen Regina PA-C Unavailable Unavailabl e Petrancosta, Bladen Regina PA-C Unavailable Unavailabl e Petrancosta, Bladen Regina PA-C Unavailable Unavailabl e Petrancosta, Bladen Regina PA-C Unavailable Unavailabl e Petrancosta, Bladen Regina PA-C Unavailable Unavailabl e Petrancosta, Bladen Regina PA-C Unavailable Unavailabl e Petrancosta, Bladen Regina PA-C Unavailable Unavailabl e Petrancosta, Bladen Regina PA-C Unavailable Unavailabl e Petrancosta, Bladen Regina PA-C Unavailable Unavailabl e Petrancosta, Bladen Regina PA-C Unavailable Unavailabl e Petrancosta, Bladen Regina PA-C Unavailable Unavailabl e Elinor Leung [...] Ali, Elinor MD Unavailable Unavailable Pleskach, Eden FINANCIAL COMPLIANCE OFFICER Unavailable Unavailable Pleskach, Eden FINANCIAL COMPLIANCE OFFICER Unavailable Unavailable Pleskach, Eden FINANCIAL COMPLIANCE OFFICER Unavailable Unavailable Pleskach, Eden FINANCIAL COMPLIANCE OFFICER Unavailable Unavailable Pleskach, Eden FINANCIAL COMPLIANCE OFFICER Unavailable Unavailable Pleskach, Eden FINANCIAL COMPLIANCE OFFICER Unavailable Unavailable Pleskach, Eden FINANCIAL COMPLIANCE OFFICER Unavailable Unavailable Pleskach, Eden FINANCIAL COMPLIANCE OFFICER Unavailable Unavailable Pleskach, Eden FINANCIAL COMPLIANCE OFFICER Unavailable Unavailable Pleskach, Eden FINANCIAL COMPLIANCE OFFICER Unavailable Unavailable Pleskach, Eden FINANCIAL COMPLIANCE OFFICER Unavailable Unavailable Pleskach, Eden FINANCIAL COMPLIANCE OFFICER Unavailable Unavailable Pleskach, Eden FINANCIAL COMPLIANCE OFFICER Unavailable Unavailable Pleskach, Eden FINANCIAL COMPLIANCE OFFICER Unavailable Unavailable Pleskach, Eden FINANCIAL COMPLIANCE OFFICER Unavailable Unavailable Pleskach, Eden FINANCIAL COMPLIANCE OFFICER Unavailable Unavailable Pleskach, Eden FINANCIAL COMPLIANCE OFFICER Unavailable Unavailable Pleskach, Eden FINANCIAL COMPLIANCE OFFICER Unavailable Unavailable Pleskach, Eden FINANCIAL COMPLIANCE OFFICER Unavailable Unavailable Pleskach, Eden FINANCIAL COMPLIANCE OFFICER Unavailable Unavailable Pleskach, Eden FINANCIAL COMPLIANCE OFFICER Unavailable Unavailable Pleskach, Eden FINANCIAL COMPLIANCE OFFICER Unavailable Unavailable Pleskach, Eden FINANCIAL COMPLIANCE OFFICER Unavailable Unavailable Pleskach, Eden FINANCIAL COMPLIANCE OFFICER Unavailable Unavailable Pleskach, Eden FINANCIAL COMPLIANCE OFFICER Unavailable Unavailable Pleskach, Eden FINANCIAL COMPLIANCE OFFICER Unavailable Unavailable Pleskach, Eden FINANCIAL COMPLIANCE OFFICER Unavailable Unavailable Pleskach, Eden FINANCIAL COMPLIANCE OFFICER Unavailable Unavailable Pleskach, Eden FINANCIAL COMPLIANCE OFFICER Unavailable Unavailable Pleskach, Deen FINANCIAL COMPLIANCE OFFICER Unavailable Unavailable Pleskach, Eden FINANCIAL COMPLIANCE OFFICER Unavailable Unavailable Pleskach, Eden FINANCIAL COMPLIANCE OFFICER Unavailable Unavailable Pleskach, Eden FINANCIAL COMPLIANCE OFFICER Unavailable Unavailable Pleskach, Eden FINANCIAL COMPLIANCE OFFICER Unavailable Unavailable Pleskach, Eden FINANCIAL COMPLIANCE OFFICER Unavailable Unavailable Pleskach, Eden FINANCIAL COMPLIANCE OFFICER Unavailable Unavailable Pleskach, Eden FINANCIAL COMPLIANCE OFFICER Unavailable Unavailable Pleskach, Edne FINANCIAL COMPLIANCE OFFICER Unavailable Unavailable Pleskach, Eden FINANCIAL COMPLIANCE OFFICER Unavailable Unavailable Pleskach, Eden FINANCIAL COMPLIANCE OFFICER Unavailable Unavailable Pleskach, Eden FINANCIAL COMPLIANCE OFFICER Unavailable Unavailable Pleskach, Eden FINANCIAL COMPLIANCE OFFICER Unavailable Unavailable Pleskach, Eden FINANCIAL COMPLIANCE OFFICER Unavailable Unavailable Osei, A Gladys FERRERA Unavailable [...] Graham MD Unavailable Unavailable Braulio Mccarty Unavailable [phone] Braulio Mccarty Unavailable [phone] Braulio Mccarty Unavailable [phone] Braulio Mccarty Unavailable [phone] Braulio Mccarty Unavailable [phone] Braulio Mccarty Unavailable [phone] Jacob CEJA MD Unavailable Unavailable Jacob CEJA [...] Unavailable Jacob CEJA MD Unavailable Unavailable Chakraborty, Sabin Kim Unavailable Unavailable Chakraborty, Sabin Kim Unavailable Unavailable Chakraborty, Sabin Kim Unavailable Unavailable Chakraborty, Sabin Kim Unavailable Unavailable Chakraborty, Sabin Kim Unavailable Unavailable Chakraborty, Sabin Kim Unavailable Unavailable Chakraborty, Sabin Kim Unavailable Unavailable Chakraborty, Sabin Kim Unavailable Unavailable Chakraborty, Sabin Kim Unavailable Unavailable Chakraborty, Sabin Kim Unavailable Unavailable Chakraborty, Sabin Kim Unavailable Unavailable Chakraborty, Sabin Kim Unavailable Unavailable Chakraborty, Sabin Kim Unavailable Unavailable Re-disclosure Warning The records [...] is protected by Article 27-F of the [facility] Public Health law. If you continue you may have access to information: Regarding HIV / AIDS; Provided by facilities licensed or operated by the [facility] Office of Mental Health; or Provided by the [facility] Office for People With Developmental Disabilities. If such information is present, then the following [facility] mandated warning applies: This information has been [...] law may result in a fine or prison sentence or both. A general authorization for the release of medical or other information is NOT sufficient authorization for further disc losure. Allergies and Adverse Reactions Type Description Substance Reaction Status Data Source(s ) Allergy to substance Allergy to substance Allergy to substance JILLIAN ([facility]) Allergy to substance Allergy to substance Allergy to substance LELAND ([facility]) Family History Family Member Name Family Member Gender Family Member Status Date o f Status Description Data Source(s) Unknown Male Problem MEDENT ([facility] ) Unknown Female Problem MEDENT ([facility]) Unknown Unknown Problem MEDENT ([facility]) Unknown Female Problem MEDENT ([facility]) Encounters Encounter Providers Location Date Indications Data Source(s ) Outpatient [address] [facility] [facility], [facility] [id number] 01/17/2021 12:00:00 AM EDT eCW1 ([facility]) Outpatient Attender: Eden Camara [facility] Main Office 12/15/2020 1 2:15:00 PM EDT MEDENT ([facility] Outpatient Attender: Gladys Franz MD Main Office 12/12/2020 02:00:0 0 PM EDT MEDENT ([facility] Outpatient Attender: Gladys Franz MD Main Office 11/15/2020 11:15:0 0 AM EDT MEDENT ([facility] Outpatient Attender: KEVIN Layne/Wale/Guy fairbanks/Reinchristina 10/11/2020 10:30:00 AM EDT MEDENT ([facility]) Unknown [address] [place] [phone] 09/08/2020 12:00:00 AM EDT eCW1 ([facility]) Outpatient Attender: Gladys Franz MD Main Office 08/29/2020 03:30:0 0 PM EDT MEDENT ([facility] Outpatient Attender: Gladys Franz MD Main Office 08/25/2020 10:45:0 0 AM EDT MEDENT ([facility] Office Visit Attender: Elinor Leung MD Main office - [place] 08/18/2020 09:00:00 AM EDT MEDENT ([facility], ) Outpatient Attender: Gladys Franz MD Main Office 08/15/2020 01:30:0 0 PM EDT MEDENT ([facility] ANJUM HeC: [address] [place] [phone], Ph. Attender: Kim Chakraborty [facility] Medical 08/15/2020 12:00:00 AM EDT JILLIAN ([facility]) ANJUM HeC: [address] [place] [address], Ph. Attender: Kim Chakraborty [facility] Medical 07/18/2020 12:00:00 AM EDT JILLIAN ([facility]) Kim Chakraborty FINANCIAL COMPLIANCE OFFICER-C: [address] [place] [address], Ph. Attender: Kim MITCHELL - [facility] Medical 07/18/2020 12:00:00 AM EDT JILLIAN ([facility]) Outpatient Attender: Regina Gagnon PA-C Main Office 07/10/2020 09:45:00 AM EDT MEDENT ([facility] Outpatient Attender: Braulio Mccarty 07/05 05:56:26 PM EDT - 07/05/2020 07:52:20 PM EDT DocuTap ([facility] ) Outpatient Attender: Regina Gagnon PA-C Main Office 06/19/2020 09:45:00 AM EDT MEDENT ([facility] Outpatient Attender: Regina Gagnon PA-C Main Office 06/07/2020 12:45:00 PM EST MEDENT ([facility] Outpatient [address] [facility] [id number] 05/31/2020 12:00:00 AM EST eCW1 ([facility]) Outpatient Attender: Elinor Leung MD Main office - [place] 05/25/2020 12:45:00 PM EST MEDENT ([facility], ) Outpatient Attender: Regina Gagnon PA-C Main Office 05/17/2020 12:30:00 PM EST MEDENT ([facility] Unknown [address], [facility] [address] 05/12/2020 12:00:00 AM EST eCW1 ([facility]) Outpatient [address] [facility] [id number] 05/11/2020 12:00:00 AM EST eCW1 ([facility]) Outpatient Attender: Shaina BURKETTP.RAZ-IRVIN.RAZ 2020 12:00:00 AM EST - 05/03/2020 03:12:51 PM EST [facility] Unknown [address] [place] [address] 04/27/2020 12:00:00 AM EST [facility]CW1 [facility] Outpatient [address] [facility] [place] [address] 04/26/2020 12:00:00 AM EST eCW1 ([facility]) Unknown [address] [facility] [place] [address] 04/26/2020 12:00:00 AM EST [facility] TeleMedicine Phone E/M by Phys 11-[address] [place] [phone] 04/24/2020 12:00:00 AM EST eCW1 ([facility]) Unknown [address] [facility] [place] [address] 04/21/2020 12:00:00 AM EST eCW1 ([facility]) Unknown [address] [facility] [place] [address] 04/19/2020 12:00:00 AM EST [facility]CW1 [facility]) Unknown [address] [facility] [place] [address] 04/11/2020 12:00:00 AM EST eCW1 [facility]) Unknown [address] [facility] [place] [address] 04/10/2020 12:00:00 AM EST eCW1 [facility]) Outpatient Attender: Elinor Leung MD Main office - [place] 04/03/2020 11:00:00 AM EST MEDENT ([facility] KIRBY almonte) Outpatient [address] [facility] [place] [address] 03/29/2020 12:00:00 AM EST eCW1 [facility]) Unknown [address] [facility] [id number] 03/27/2020 12:00:00 AM EST eCW1 ([facility]) [place] [address] [facility] [place] [address] 03/13/2020 12:00:00 AM EST eCW1 ([facility]) [place] [address] [facility] [facility] [address] 03/10/2020 12:00:00 AM EST eCW1 ([facility]) [place] [address] [facility] [address] 02/28/2020 12:00:00 AM EST eCW1 ([facility]) [place] [address] [facility] [place] [address] 02/18/2020 12:00:00 AM EST eCW1 ([facility]) [place] [address] [facility] [address] 01/27/2020 12:00:00 AM EDT eCW1 ([facility]) [place] [address] [facility] [address] 01/19/2020 12:00:00 AM EDT eCW1 ([facility]) [place] [address] [facility] [facility] [place] [address] 01/12/2020 12:00:00 AM EDT eCW1 ([facility]) Immunizations Vaccine Date Status Description Data Source(s) COVID-19, mRNA, LNP-S, PF, 100 mcg/0.5 mL dose 08/15/2020 05 :29:01 PM EDT completed 10.5 mL JILLIAN ([facility]) Moderna Sars-(Covid-19) vaccine, mRNA, LNP-S, PF, 100 mcg/ 0.5 mL 08/15/2020 12:00:00 AM EDT completed [facility] ([facility] COVID-19 VACCINE Moderna 08/15/2020 12:00:00 AM EDT completed [facility] Vaccine Series Complete: YESThis Data wa s Submitted to [facility] Via [employer]. COVID-19, mRNA, LNP-S, PF, 100 mcg/0.5 mL dose 07/18/2020 08 :34:00 AM EDT completed .5 mL JILLIAN ([facility]) Moderna Sars-(Covid-19) vaccine, mRNA, LNP-S, PF, 100 mcg/ 0.5 mL 07/18/2020 12:00:00 AM EDT completed [facility] ([facility] COVID-19 VACCINE Moderna 07/18/2020 12:00:00 AM EDT completed [facility] Vaccine Series Complete: NOThis Data was Submitted to [facility] Via [employer]zin in 2011. IIV4 05/02/2020 11:00:00 PM EST completed [facility] ([facility] Medications Medication Brand Name Start Date Product Form Dose Route Admi nistrative Instructions Pharmacy Instructions Status Indications Reaction Description Data Source(s) 5 mg 01/19/2021 12:00:00 AM EDT capsule 30 TAKE ONE CAPSULE BY MOUTH EVERY 6 HOURS NEEDED FOR ANKLE PAIN. AVOID DAILY USE. MAXIMUM DAILY DOSE = 2 TAKE ONE CAPSULE BY MOUTH EVERY 6 HOURS NEEDED FOR ANKLE PAIN. AVOID DAILY USE. MAXIMUM DAILY DOSE = 2 SOLD: 01/19/2021 [facility] 5 mg 12/19/2020 12:00:00 AM EDT capsule [...] BY MOUTH TWICE A DAY SOLD: 01/08/2021 [facility] 2.5 mg /3 mL (0.083 [...] DAILY DOSE = 2 CAPSULES SOLD: 09/20/2020 [facility] atorvastatin 40 MG Oral Tablet ATORVASTATIN CALCIUM 09/09/2020 1 2:00:00 AM EDT tablet 90 TAKE ONE TABLET BY MOUTH EVERY D AY TAKE ONE TABLET BY MOUTH EVERY DAY SOLD: 09/13/2020 [facility] pantoprazole 40 MG Delayed Release Oral Tablet PANTOPRAZOLE SODIUM 09/09/2020 12:00:00 AM EDT tablet,delayed release (DR/EC) 180 T BRYAN ONE TABLET BY MOUTH TWICE A DAY TAKE ONE TABLET BY MOUTH TWICE A DAY SOLD: 09/13/2020 [facility] 500 mg 08/25/2020 12:00:00 AM EDT tablet 14 TAKE ONE TABLET BY MOUTH TWICE A DAY TAKE ONE TABLET BY MOUTH TWICE A DAY SOLD: 08/25/2020 [facility] Ciprofloxacin 500 MG Oral Tablet Ciprofloxacin HCL [...] DAILY DOSE = 2 TABLETS SOLD: 11/10/2020 [facility] 100 mg 2020 12:00:00 AM [...] BY MOUTH AT BEDTIME SOLD: 01/16/2021 [facility] topiramate 200 MG Oral Tablet TOPIRAMATE 08/22/2020 12:00:00 AM EDT ta blet 30 TAKE ONE TABLET BY MOUTH AT BEDTIME TAKE ONE TABLET BY MOUTH AT BEDTIME SOLD: 11/10/2020 [facility] 200 mg 08/21/2020 12:00:00 AM EDT tablet 6 TAKE 1 TABLET BY MOUTH EVERY 8 HOURS TAKE 1 TABLET BY MOUTH EVERY 8 HOURS SOLD: 08/21/2020 [facility] NITROFURANTOIN, MACROCRYSTALS 25 MG / Ni trofurantoin, [...] THEN TAKE ONE DAILY THEREAFTER SOLD: 07/14/2020 [facility] Azithromycin 250 MG Oral Tablet Azithromycin 07/10/2020 [...] DAILY DOSE = 4 CAPSULES SOLD: 06/20/2020 [facility] 90 mcg/actuation 06/19/2020 12:00:00 AM EDT HFA aerosol inha ler 25 INHALE TWO PUFFS BY MOUTH EVERY 4 HOURS NEEDED INHALE TWO PUFFS BY MOUTH EVERY 4 HOURS NEEDED SOLD: 06/20/2020 [facility] 20 mg 06/07/2020 12:00:00 AM EST tablet 90 TAKE ONE TABLET BY MOUTH EVERY DAY TAKE ONE TABLET BY MOUTH EVERY DAY SOLD: 09/13/2020 [facility] 20 mg 06/07/2020 12:00:00 AM EST tablet 90 TAKE ONE TABLET BY MOUTH EVERY DAY TAKE ONE TABLET BY MOUTH EVERY DAY SOLD: 06/12/2020 [facility] topiramate 200 MG Oral Tablet Topiramate 05/25/2020 12:00:00 AM EST ORAL active MEDENT ([facility] 5 mg 05/24/2020 12:00:00 AM EST capsule 30 TAKE 1 CAPSULE EVERY 6 HOURS NEEDED ANKLE PAIN AVOID DAILY USE MAXIMUM DAILY DOSE = 4 TAKE 1 CAPSULE EVERY 6 HOURS NEEDED ANKLE PAIN AVOID DAILY USE MAXIMUM DAILY DOSE = 4 SOLD: 05/24/2020 [facility] doxycycline hyclate 100 MG Oral Capsule Doxycycline Hy clate 100 MG Doxycycline Hyclate 100 MG 05/01/2020 12:00:00 AM EST 1.0 {capsule} suspended Doxycycline Hyclate 100 MG eCW1 ([facility]) doxycycline hyclate 100 MG Oral Capsule Doxycycline Hy clate 100 MG Doxycycline Hyclate 100 MG 05/01/2020 12:00:00 AM EST 1.0 {capsule} suspended Doxycycline Hyclate 100 MG eCW1 ([facility]) doxycycline hyclate 100 MG Oral Capsule Doxycycline Hy clate 100 MG Doxycycline Hyclate 100 MG 05/01/2020 12:00:00 AM EST 1.0 {capsule} suspended Doxycycline Hyclate 100 MG eCW1 ([facility]) doxycycline hyclate 100 MG Oral Capsule Doxycycline Hy clate 100 MG Doxycycline Hyclate 100 MG 05/01/2020 12:00:00 AM EST 1.0 {capsule} active Doxycycline Hyclate 100 MG eCW1 ([facility]) doxycycline hyclate 100 MG Oral Capsule Doxycycline Hy clate 100 MG Doxycycline Hyclate 100 MG 05/01/2020 12:00:00 AM EST 1.0 {capsule} suspended Doxycycline Hyclate 100 MG eCW1 ([facility]) doxycycline hyclate 100 MG Oral Capsule Doxycycline Hy clate 100 MG Doxycycline Hyclate 100 MG 05/01/2020 12:00:00 AM EST 1.0 {capsule} suspended Doxycycline Hyclate 100 MG eCW1 ([facility]) topiramate 50 MG Oral Tablet topiramate (TOPAMAX) 50 M G tablet topiramate (TOPAMAX) 50 MG tablet 05/01/2020 12:00:00 AM EST active [facility] doxycycline hyclate 100 MG Oral Capsule Doxycycline Hy clate 100 MG Doxycycline Hyclate 100 MG 05/01/2020 12:00:00 AM EST 1.0 {capsule} suspended Doxycycline Hyclate 100 MG eCW1 ([facility]) doxycycline hyclate 100 MG Oral Capsule Doxycycline Hy clate 100 MG Doxycycline Hyclate 100 MG 05/01/2020 12:00:00 AM EST 1.0 {capsule} active Doxycycline Hyclate 100 MG eCW1 ([facility]) doxycycline hyclate 100 MG Oral Capsule DOXYCYCLINE [...] EST active Oxycodone HCl 5 MG eCW1 ([facility]) Oxycodone Hydrochloride 5 MG Oral Tablet Oxycodone HCl 5 MG Oxycodone HCl 5 MG 04/21/2020 12:00:00 AM EST active Oxycodone HCl 5 MG eCW1 ([facility]) Oxycodone Hydrochloride 5 MG Oral Tablet Oxycodone HCl 5 MG Oxycodone HCl 5 MG 04/21/2020 12:00:00 AM EST active Oxycodone HCl 5 MG eCW1 ([facility]) Oxycodone Hydrochloride 5 MG Oral Tablet Oxycodone HCl 5 MG Oxycodone HCl 5 MG 04/21/2020 12:00:00 AM EST active Oxycodone HCl 5 MG eCW1 ([facility]) Oxycodone Hydrochloride 5 MG Oral Tablet Oxycodone HCl 5 MG Oxycodone HCl 5 MG 04/21/2020 12:00:00 AM EST active Oxycodone HCl 5 MG eCW1 ([facility]) Oxycodone Hydrochloride 5 MG Oral Tablet Oxycodone HCl 5 MG Oxycodone HCl 5 MG 04/21/2020 12:00:00 AM EST active Oxycodone HCl 5 MG eCW1 ([facility]) Oxycodone Hydrochloride 5 MG Oral Tablet Oxycodone HCl 5 MG Oxycodone HCl 5 MG 04/21/2020 12:00:00 AM EST active Oxycodone HCl 5 MG eCW1 ([facility]) Oxycodone Hydrochloride 5 MG Oral Tablet oxyCODONE HCl 5 MG oxyCODONE HCl 5 MG 04/21/2020 12:00:00 AM EST active oxyCODONE HCl 5 MG eCW1 ([facility]) 5 mg 04/21/2020 12:00:00 AM EST tablet [...] EST active Oxycodone HCl 5 MG eCW1 ([facility]) Oxycodone Hydrochloride 5 MG Oral Tablet Oxycodone HCl 5 MG Oxycodone HCl 5 MG 04/21/2020 12:00:00 AM EST active Oxycodone HCl 5 MG eCW1 ([facility]) Alprazolam 0.5 MG Oral Tablet ALPRAZolam (XANAX) 0.5 M G tablet ALPRAZolam (XANAX) 0.5 MG tablet 04/04/2020 12:00:00 AM EST active TAKE ONE TABLET BY MOUTH 30 MINUTES BEFORE MRI SCAN MAY REPEAT ONCE NEEDED. MAXIMUM DAILY DOSE TWO TABLETS [facility] Sumatriptan 100 MG Oral Tablet Sumatriptan Succinate 04/03/2020 12:00:00 AM EST ORAL active MEDENT ( [facility], ) Alprazolam 0.5 MG Oral Tablet Alprazolam 04/03/2020 12:00:00 AM EST ORAL active MEDENT ([facility] ) topiramate 50 MG Oral Tablet Topiramate 04/03/2020 12:00:00 AM EST completed MEDENT ([facility] ) 25 mg 03/30/2020 [...] mg Oral active Take [address] [facility] 2 (two) times a day [facility] Metoprolol Tartrate 25 MG Oral Tablet Metoprolol Tartrate 25 MG 03/29/2020 12:00:00 AM EST 1.0 {tablet_with_food} active Metoprolol Tartrate 25 MG eCW1 ([facility]) Metoprolol Tartrate 25 MG Oral Tablet Metoprolol Tartrate 25 MG 03/29/2020 12:00:00 AM EST 1.0 {tablet_with_food} active Metoprolol Tartrate 25 MG eCW1 ([facility]) Metoprolol Tartrate 25 MG Oral Tablet Metoprolol Tartrate 25 MG 03/29/2020 12:00:00 AM EST 1.0 {tablet_with_food} active Metoprolol Tartrate 25 MG eCW1 ([facility]) Metoprolol Tartrate 25 MG Oral Tablet Metoprolol Tartrate 25 MG 03/29/2020 12:00:00 AM EST 1.0 {tablet_with_food} active Metoprolol Tartrate 25 MG eCW1 ([facility]) Metoprolol Tartrate 25 MG Oral Tablet Metoprolol Tartrate 25 MG 03/29/2020 12:00:00 AM EST 1.0 {tablet_with_food} active Metoprolol Tartrate 25 MG eCW1 ([facility]) Metoprolol Tartrate 25 MG Oral Tablet Metoprolol Tartrate 25 MG 03/29/2020 12:00:00 AM EST 1.0 {tablet_with_food} active Metoprolol Tartrate 25 MG eCW1 ([facility]) Metoprolol Tartrate 25 MG Oral Tablet Metoprolol Tartrate 25 MG 03/29/2020 12:00:00 AM EST 1.0 {tablet_with_food} active Metoprolol Tartrate 25 MG eCW1 ([facility]) Metoprolol Tartrate 25 MG Oral Tablet Metoprolol Tartrate 25 MG 03/29/2020 12:00:00 AM EST 1.0 {tablet_with_food} active Metoprolol Tartrate 25 MG eCW1 ([facility]) Metoprolol Tartrate 25 MG Oral Tablet Metoprolol Tartrate 25 MG 03/29/2020 12:00:00 AM EST 1.0 {tablet_with_food} active Metoprolol Tartrate 25 MG eCW1 ([facility]) Metoprolol Tartrate 25 MG Oral Tablet Metoprolol Tartrate 25 MG 03/29/2020 12:00:00 AM EST 1.0 {tablet_with_food} active Metoprolol Tartrate 25 MG eCW1 ([facility]) Metoprolol Tartrate 25 MG Oral Tablet Metoprolol Tartrate 25 MG 03/29/2020 12:00:00 AM EST 1.0 {tablet_with_food} active Metoprolol Tartrate 25 MG eCW1 ([facility]) Metoprolol Tartrate 25 MG Oral Tablet Metoprolol Tartrate 25 MG 03/29/2020 12:00:00 AM EST 1.0 {tablet_with_food} active Metoprolol Tartrate 25 MG eCW1 ([facility]) Metoprolol Tartrate 25 MG Oral Tablet Metoprolol Tartrate 25 MG 03/29/2020 12:00:00 AM EST 1.0 {tablet_with_food} active Metoprolol Tartrate 25 MG eCW1 ([facility]) Metoprolol Tartrate 25 MG Oral Tablet Metoprolol Tartrate 25 MG 03/29/2020 12:00:00 AM EST 1.0 {tablet_with_food} active Metoprolol Tartrate 25 MG eCW1 ([facility] [facility]) Oxycodone Hydrochloride 5 MG Oral Tablet Oxycodone HCl 5 MG Oxycodone HCl 5 MG 03/27/2020 12:00:00 AM EST active Oxycodone HCl 5 MG eCW1 ([facility]) Oxycodone Hydrochloride 5 MG Oral Tablet Oxycodone HCl 5 MG Oxycodone HCl 5 MG 03/27/2020 12:00:00 AM EST active Oxycodone HCl 5 MG eCW1 ([facility]) Oxycodone Hydrochloride 5 MG Oral Tablet Oxycodone HCl 5 MG Oxycodone HCl 5 MG 03/27/2020 12:00:00 AM EST active Oxycodone HCl 5 MG eCW1 ([facility]) Oxycodone Hydrochloride 5 MG Oral Tablet Oxycodone HCl 5 MG Oxycodone HCl 5 MG 03/27/2020 12:00:00 AM EST active Oxycodone HCl 5 MG eCW1 ([facility]) Verapamil hydrochloride 80 MG Oral Tablet verapamil [...] EST active Oxycodone HCl 5 MG eCW1 ([facility]) 5 mg 03/27/2020 12:00:00 AM EST tablet [...] 2.0 {tablets} suspended PredniSONE 20 MG eCW1 ([facility]) Prednisone 20 MG Oral Tablet PredniSONE 20 MG PredniSONE 20 MG 03/13/2020 12:00:00 AM EST 2.0 {tablets} active P redniSONE 20 MG eCW1 ([facility]) Prednisone 20 MG Oral Tablet PredniSONE 20 MG PredniSONE 20 MG 03/13/2020 12:00:00 AM EST 2.0 {tablets} active P redniSONE 20 MG eCW1 ([facility]) Prednisone 20 MG Oral Tablet PredniSONE 20 MG PredniSONE 20 MG 03/13/2020 12:00:00 AM EST 2.0 {tablets} suspended PredniSONE 20 MG eCW1 ([facility]) Prednisone 20 MG Oral Tablet PredniSONE 20 MG PredniSONE 20 MG 03/13/2020 12:00:00 AM EST 2.0 {tablets} suspended PredniSONE 20 MG eCW1 ([facility]) Prednisone 20 MG Oral Tablet PredniSONE 20 MG PredniSONE 20 MG 03/13/2020 12:00:00 AM EST 2.0 {tablets} suspended PredniSONE 20 MG eCW1 ([facility]) Prednisone 20 MG Oral Tablet PredniSONE 20 MG PredniSONE 20 MG 03/13/2020 12:00:00 AM EST 2.0 {tablets} suspended PredniSONE 20 MG eCW1 ([facility]) Prednisone 20 MG Oral Tablet PredniSONE 20 MG PredniSONE 20 MG 03/13/2020 12:00:00 AM EST 2.0 {tablets} suspended PredniSONE 20 MG eCW1 ([facility]) Prednisone 20 MG Oral Tablet PredniSONE 20 MG PredniSONE 20 MG 03/13/2020 12:00:00 AM EST 2.0 {tablets} suspended PredniSONE 20 MG eCW1 ([facility]) Prednisone 20 MG Oral Tablet PredniSONE 20 MG PredniSONE 20 MG 03/13/2020 12:00:00 AM EST 2.0 {tablets} suspended PredniSONE 20 MG eCW1 ([facility]) Prednisone 20 MG Oral Tablet PredniSONE 20 MG PredniSONE 20 MG 03/13/2020 12:00:00 AM EST 2.0 {tablets} suspended PredniSONE 20 MG eCW1 ([facility]) Prednisone 20 MG Oral Tablet predniSONE 20 MG predniSONE 20 MG 03/13/2020 12:00:00 AM EST 2.0 {tablets} suspended predniSONE 20 MG eCW1 ([facility]) Prednisone 20 MG Oral Tablet PredniSONE 20 MG PredniSONE 20 MG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 tent>
<content></content> ID Date Data Source [id number] 10/12/2020 10:12[facility] Name Value Range Interpretation Code Description Data Lynette rce(s) Supporting Document(s) Elastase.pancreatic [Mass/mass] in Stool Laboratory test result Normal (applies to non-numeric results) [facility] <content>Result Units: ug Elast./g</cont ent>
<content>Severe Pancreatic Insufficiency: <100</content>
<content>Moderate Pancreatic Insufficiency: 100 - 200</content>
<content>Normal: >200</content>
<content>Performed at: [facility]</content>
<content>[address], [place] [id number]</content>
<content>Relations Mgr: Yarely Torres MD, Phone: [phone]</content>
<content>Performed at: [facility]</content>
<content>[address] [place], [place] [id number]</content>
<content>Relations Mgr: Thor Escobar MD, Phone: [phone]</content>
<content></content> ID Date Data Source [id number] 10/12/2020 10:12:00 AM EDT [facility] Name Value Range Interpretation Code Description Data Lynette rce(s) Supporting Document(s) Lactoferrin [Presence] in Stool by Immunoassay Laboratory test r esult Normal (applies to non-numeric results) [facility] ([facility]) ID Date Data Source [id number] 10/12/2020 10:12:00 AM EDT [facility] Name Value Range Interpretation Code Description Data Lynette rce(s) Supporting Document(s) Alt/SGPT 101 U/L 12-78 Above high normal [facility] ([facility]) Ast/Sgot 32 U/L 7-37 Normal (applies to non-numeric resul ts) [facility] ([facility]) Bilirubin,Total 0.3 mg/dL 0.2-1.0 Normal (applies to non-numeric results) [facility] Alkaline Phosphatase 123 U/L 45-117 Above high normal [facility] ([facility]) Total Protein 7.1 GM/DL 6.4-8.2 Normal (applies to non-numeric re sults) [facility]) Bilirubin,Direct Laboratory test result 0.0-0.2 Normal ( applies to non-numeric results) [facility] ([facility]) Albumin 3.2 GM/DL 3.2-5.2 Normal (applies to non-numeric resul ts) [facility]) Albumin/Globulin Ratio 0.8 1.2-2.2 Below low normal [facility] ([facility]) ID Date Data Source [id number] 10/12/2020 10:12:00 AM EDT [facility] Name Value Range Interpretation Code Description Data Lynette rce(s) Supporting Document(s) Erythrocyte sedimentation rate by Westergren method 23 mm/hr 0-20 Above high normal [facility] ([facility]) C reactive protein [Mass/volume] in Serum or Plasma by High sensitivity method 0.66 mg/dL 0.00-0.30 Above high normal [facility] ([facility]) ID Date Data Source [id number] 10/12/2020 10:12:00 AM EDT [facility] Name Value Range Interpretation Code Description Data Lynette rce(s) Supporting Document(s) Red Blood Count 4.96 10 4.00-5.40 Normal (applies to non-numeric results) [facility] ([facility]) White Blood Count 5.7 10 4.0-10.0 Normal (applies to non-numeri c results) [facility] ([facility]) Mean Corpuscular Volume 87.9 fl 80.0-96.0 Normal ( applies to non-numeric results) [facility] ([facility]) Hemoglobin 13.8 g/dL 12.0-15.5 Normal (applies to non-numeric resul ts) [facility] ([facility]) Hematocrit 43.6 % 36.0-47.0 Normal (applies to non-numeric resul ts) [facility]) Mean Corpuscular HGB Conc 31.7 g/dL 32.0-36.5 Below low normal [facility] ([facility]) Mean Corpuscular Hemoglobin 27.8 pg 27.0-33.0 Norm al (applies to non-numeric results) [facility] ([facility]) Neutrophils % 55.2 % 36.0-66.0 Normal (applies to non-numeric re sults) [facility] ([facility]) Platelet Count, Automated 278 10 150-450 Normal (applies to non-numeric results) [facility]) Red Cell Distribution Width 12.9 % 11.5-14.5 Norm al (applies to non-numeric results) [facility]) Lymph % 32.3 % 24.0-44.0 Normal (applies to non-numeric resul ts) [facility] ([facility]) Bandera % 8.8 % 2.0-8.0 Above high normal [facility] ([facility]) Baso % 0.5 % 0.0-1.0 Normal (applies to non-numeric resul ts) [facility] ([facility]) Eos % 3.0 % 0.0-3.0 Normal (applies to non-numeric resul ts) [facility] ([facility]) Nucleated Red Blood Cell % 0.0 % 0-0 Normal (applies to n on-numeric results) [facility] ([facility]) Immature Granulocyte % 0.2 % 0-3.0 Normal (applies to non-n umeric results) [facility] ([facility]) Neutrophils # 3.1 10 1.5-8.5 Normal (applies to non-numeric re sults) [facility] ([facility]) Lymph # 1.8 10 1.5-5.0 Normal (applies to non-numeric resul ts) [facility] ([facility]) Bandera # 0.5 10 0.0-0.8 Normal (applies to non-numeric resul ts) [facility] ([facility]) Eos # 0.2 10 0.0-0.5 Normal (applies to non-numeric resul ts) [facility] ([facility]) Baso # 0.0 10 0.0-0.2 Normal (applies to non-numeric resul ts) [facility] ([facility]) ID Date Data Source [id number] 08/25/2020 11:16:00 AM EDT [facility] ([facility] Name Value Range Interpretation Code Description Data Lynette rce(s) Supporting Document(s) Bacteria identified in Urine by Culture Laboratory test result [facility] ([facility] FULL REPORT IN LAB NOTES (eCW and [facility] ). SPECIMEN APPEARS CONTAMINATED ID Date Data Source [id number] 08/20/2020 08:21:00 PM EDT [facility] ([facility] Name Value Range Interpretation Code Description Data Lynette rce(s) Supporting Document(s) Reflex Urine Culture Laboratory test result [facility] ([facility] FULL REPORT IN LAB NOTES (eCW and [facility] ). SPECIMEN APPEARS CONTAMINATED ID Date Data Source [id number] 08/20/2020 08:21:00 PM EDT [facility] ([facility] Name Value Range Interpretation Code Description Data [facility] rce(s) Supporting Document(s) Appearance, Urine RFX Laboratory test result [facility] ([facility] Color, Urine RFX Laboratory test result [facility] ([facility] PH,Urine RFX 5.0 units 5.0-9.0 [facility] ([facility] Protein, Urine Auto RFX Laboratory test result [facility] ([facility] Specific [place] Ur Auto RFX 1.029 1.002-1.035 [facility] (Gladys [...] [facility] ID Date Data Source [id number] 07/07/2020 11:32:00 PM EDT [employer] Name Value Range Interpretation Code Description Data Lynette rce(s) Supporting Document(s) COVID-19 RT-PCR CABLE INSTALLATION TECHNICIAN SWAB Not Detected [facility] A not detected (negative) test result [...] developed and its performance characteristics determined by [employer] and verified at [facility]. It has not been cleared or approved by the U.S. Food and Drug Administration for diagnostic use. This test has been authorized by FDA under an EUA for use by authorized laboratories. Results should be used in conjunction with clinical findings, and should not form the sole basis for a diagnosis or treatment decision. Methods: SARS-CoV-2 Multiplex RT-PCR Assay ID Date Data Source [id number] 07/05/2020 06:15:00 PM EDT [facility] Name Value Range Interpretation Code Description Data Lynette rce(s) Supporting Document(s) SARS-CoV-2 (COVID-19) N gene [Presence] in Respiratory specimen by JORI with probe detection NEGATIVE [facility] This lab was ordered by Charley Sequeira and reported by [employer]. ID Date Data Source [id number] 07/05/2020 12:00:00 AM EDT [facility] Name Value Range Interpretation Code Description Data Lynette rce(s) Supporting Document(s) Carestart Rapid COVID Antigen Test Negative [facility] This lab was reported by Charley celaya. ID Date Data Source [id number] 05/18/2020 02:28:00 PM EST [facility] ([facility] Name Value Range Interpretation Code Description Data Lynette rce(s) Supporting Document(s) Opiates [Mass/volume] in Urine Laboratory test result [facility] ([facility] Opiate test includes Codeine and Morphin e only. Performed at: [address] [id number] Relations Mgr: Yarely Torres MD, Phone: [phone] ID Date Data Source [id number] 05/18/2020 02:28:00 PM EST [facility] ([facility] Franz [...] Confirmation Reflex test will be sent to [address], [address] [place] [address] Phencyclidine Urine Reflex Laboratory test result [facility] ([facility] ALL PRESUMPTIVE POSITIVE FINDINGS AR E UNCONFIRMED THRESHOLD IN NG/ML AMPHETAMINES 1000 BARBITURATES 200 BENZODIAZEPINES 200 CANNABINOIDS (THC) 50 COCAINE METABOLITE 300 METHADONE 300 OPIATES 300 PHENCYCLIDINE 25 RESULTS ARE FOR MEDICAL PURPOSES ONLY. FOR A LIST OF CLOSELY RELATED COMPOUNDS CALL THE LAB ([id number]). URINE DRUG CLASSES THAT GIVE A POSITIVE RESULT WILL BE SENT OUT FOR QUANTITATIVE CONFIRMATION TO A REFERENCE LAB PROVIDED THERE IS A SUFFICIENT AMOUNT OF SPECIMEN REMAINING. ID Date Data Source [id number] 05/18/2020 02:22:00 PM EST [facility] ([facility]ys Franz [...] Little GFR Left</content>
<content>ESRD GFR <15 on [employer]</content>
<content></content> Creatinine For GFR 0.74 mg/dL 0.55-1.30 [...] [facility] ID Date Data Source [id number] 05/18/2020 02:22:00 PM EST [facility] ([facility] [...] [facility] ID Date Data Source [id number] 05/18/2020 02:22:00 PM EST [facility] ([facility] Name Value Range Interpretation Code Description Data Lynette rce(s) Supporting Document(s) Hemoglobin A1c/Hemoglobin.total in Blood 5.8 % [facility] ([facility] <content>REFERENCE RANGES:</content><br/ ><content></content>
<content><=5.6% NORMAL</content>
<content>5.7-6.4% SUGGESTS IMPAIRED GLUCOSE METABOLISM/PREDIABETIC</content>
<content>>= 6.5% ABNORMAL</content>
<content></content> Estimated Average Glucose 120 mg/dL 60-110 [facility] ([facility] ID Date Data Source [id number] 04/21/2020 01:36:00 PM EST [facility] Name Value Range Interpretation Code Description Data Lynette rce(s) Supporting Document(s) SARS coronavirus 2 RNA Not Detected [facility] This lab was ordered by [facility] and reported by [facility]. ID Date Data Source [id number] 03/07/2020 09:33:00 PM EST [facility] Name Value Range Interpretation Code Description Data Lynette rce(s) Supporting Document(s) SARS coronavirus 2 RNA [facility] This lab was ordered by [facility] and reported by [facility]. ID Date Data Source Urinalysis, no micro 01/12/2020 05:25:12 AM EDT eCW1 ([facility]) Name Value Range Interpretation Code Description Data Lynette rce(s) Supporting Document(s) 5 pH eCW1 ([facility]) pH neg Leukocyte eCW1 ([facility]) Leukocyte neg Spec gravity eCW1 ([facility]) Spec gravity neg Ketones eCW1 ([facility]) Ketones neg Glucose eCW1 ([facility]) Glucose neg Nitrate eCW1 ([facility]) Nitrate trace Protein eCW1 ([facility]) Protein neg Urobili eCW1 ([facility]) Urobili neg Bilirubin eCW1 ([facility]) Bilirubin neg Blood eCW1 ([facility]) Blood yes Internal QC Acceptable (Y/N) e CW1 ([facility]) Internal QC Acceptable (Y/N) Procedure Social History Code Duration Value Status Description Data Source(s ) Smoking 01/18/2021 12:00:00 AM EDT Never Smoker completed Never S moker eCW1 ([facility]) Smoking 12/15/2020 12:00:00 AM EDT Patient has never smoked co mpleted Patient has never smoked [facility] ([facility] Smoking 08/14/2020 12:00:00 AM EDT Never Smoker completed Never S moker eCW1 ([facility]) Smoking 05/31/2020 12:00:00 AM EST Never Smoker completed Never S moker eCW1 ([facility]) Smoking 05/31/2020 12:00:00 AM EST Never Smoker completed Never S moker eCW1 ([facility]) Smoking 05/11/2020 12:00:00 AM EST Never Smoker completed Never S moker eCW1 ([facility]) Smoking 05/11/2020 12:00:00 AM EST Never Smoker completed Never S moker eCW1 ([facility]) Alcohol intake 05/03/2020 12:00:00 AM EST No completed [facility] Smoking 05/03/2020 12:00:00 AM EST Never smoker completed Never s moker [facility] Smoking 04/26/2020 12:00:00 AM EST Never Smoker completed Never S moker eCW1 ([facility]) Smoking 04/26/2020 12:00:00 AM EST Never Smoker completed Never S moker eCW1 ([facility]) Smoking 04/26/2020 12:00:00 AM EST Never Smoker completed Never S moker eCW1 ([facility]) Smoking 03/29/2020 12:00:00 AM EST Never Smoker completed Never S moker eCW1 ([facility]) Smoking 03/29/2020 12:00:00 AM EST Never Smoker completed Never S moker eCW1 ([facility]) Smoking 03/29/2020 12:00:00 AM EST Never Smoker completed Never S moker eCW1 ([facility]) Smoking 03/29/2020 12:00:00 AM EST Never Smoker completed Never S moker eCW1 ([facility]) Smoking 03/29/2020 12:00:00 AM EST Never Smoker completed Never S moker eCW1 ([facility]) Smoking 02/18/2020 12:00:00 AM EST Never Smoker completed Never S moker eCW1 ([facility]) Smoking 02/18/2020 12:00:00 AM EST Never Smoker completed Never S moker eCW1 ([facility]) Smoking 02/18/2020 12:00:00 AM EST Never Smoker completed Never S moker eCW1 ([facility]) Smoking 02/18/2020 12:00:00 AM EST Never Smoker completed Never S moker eCW1 ([facility]) Smoking 02/18/2020 12:00:00 AM EST Never Smoker completed Never S moker eCW1 ([facility]) Smoking 01/19/2020 12:00:00 AM EDT Never Smoker completed Never S moker eCW1 ([facility]) Smoking 01/19/2020 12:00:00 AM EDT Never Smoker completed Never S moker eCW1 ([facility]) Smoking 01/19/2020 12:00:00 AM EDT Never Smoker completed Never S moker eCW1 ([facility]) Vital Signs ID Date Data Source UNK Name Value Range Interpretation Code Description Data Source(s) Body weight 235 [lb_av] 235 [lb_av] W1 ([facility]) Body height 62 [in_i] 62 [in_i] W1 ([facility]) Body mass index (BMI) [Ratio] 42.98 kg/m2 42.98 kg/m2 W1 ([facility]) Systolic blood pressure 122 mm[Hg] 122 mm[Hg] e CW1 ([facility]) Diastolic blood pressure 84 mm[Hg] 84 mm[Hg] eCW1 ([facility]) Body height 61.50 [in_i] 61.50 [in_i] [facility] ([facility] 5'1.50" Systolic blood pressure 119 mm[Hg] 119 mm[Hg] M EDENT ([facility] Body weight 236.50 [lb_av] 236.50 [lb_av] MEDEN T ([facility] Oxygen saturation in Arterial blood by Pulse oximetry 98 % 98 % ALDO[facility] ([facility] Diastolic blood pressure 93 mm[Hg] 93 mm[Hg] [facility] ([facility] Diastolic blood pressure 75 mm[Hg] 75 mm[Hg] [facility] ([facility] Body temperature 97.5 [degF] 97.5 [degF] [facility] ([facility] Respiratory rate 16 /min 16 /min [facility] ( [facility] Kennedy body weight 105 [lb_av] 105 [lb_av] MEDEN [...] 236.00 [lb_av] 236.00 [lb_av] MEDEN T ([facility] Kennedy body weight 105 [lb_av] 105 [lb_av] MEDEN [...] height 61.50 [in_i] 61.50 [in_i] [facility] ([facility] 5'1.50" Body weight 232.50 [lb_av] 232.50 [lb_av] MEDEN T ([facility] Kennedy body weight 105 [lb_av] 105 [lb_av] MED[facility] T ([facility] Body mass index (BMI) [Ratio] 43.2 kg/m2 43.2 k g/m2 [facility] ([facility] Systolic blood pressure 130 mm[Hg] 130 mm[Hg] M EDENT ([facility], ) Diastolic blood pressure 88 mm[Hg] 88 mm[Hg] MED[facility] ([facility]) Body height 65 [in_i] 65 [in_i] MEDENT ([facility]) 5'5" Body weight 230.00 [lb_av] 230.00 [lb_av] MEDEN T ([facility]) Body mass index (BMI) [Ratio] 38.3 kg/m2 38.3 k g/m2 [facility] ([facility]) Kennedy body weight 125 [lb_av] 125 [lb_av] MEDEN T ([facility]) Body weight 104.328 kg 104.328 kg MED[facility] ([facility]) Body surface area Derived from formula 2.10 m2 2.10 m2 [facility] ([facility]) Systolic blood pressure 112 mm[Hg] 112 mm[Hg] M EDENT ([facility] Diastolic blood pressure 74 mm[Hg] 74 mm[Hg] [facility] ([facility] Heart rate 91 /min 91 /min [facility] ([facility] Body temperature 97.6 [degF] 97.6 [degF] [facility] ([facility] Oxygen saturation in Arterial blood by Pulse oximetry 98 % 98 % [facility] ([facility] Kennedy body weight 105 [lb_av] 105 [lb_av] MEDEN T ([facility] Body mass index (BMI) [Ratio] 44.1 kg/m2 44.1 k g/m2 [facility] ([facility] Respiratory rate 18 /min 18 /min [facility] ( [facility] Body height 61.50 [in_i] 61.50 [in_i] [facility] ([facility] 5'1.50" Body weight 237.00 [lb_av] 237.00 [lb_av] MEDEN T ([facility] Body weight 234.38 [lb_av] 234.38 [lb_av] MEDEN T ([facility] Systolic blood pressure 114 mm[Hg] 114 mm[Hg] M EDENT ([facility] Diastolic blood pressure 72 mm[Hg] 72 mm[Hg] [facility] ([facility] Heart rate 85 /min 85 /min [facility] ([facility] Oxygen saturation in Arterial blood by Pulse oximetry 98 % 98 % [facility] ([facility] Kennedy body weight 105 [lb_av] 105 [lb_av] MEDEN T ([facility] Body mass index (BMI) [Ratio] 43.6 kg/m2 43.6 k g/m2 [facility] ([facility] Body temperature 97.3 [degF] 97.3 [degF] [facility] ([facility] Respiratory rate 17 /min 17 /min [facility] ( [facility] Body height 61.50 [in_i] 61.50 [in_i] [facility] ([facility] 5'1.50" Respiratory rate 16 /min 16 /min [facility] ( [facility] Heart rate 80 /min 80 /min [facility] ([facility] Oxygen saturation in [...] [lb_av] MEDEN T ([facility] Kennedy body weight 105 [lb_av] 105 [lb_av] MEDEN [...] 98 % [facility] ([facility] Kennedy body weight 105 [lb_av] 105 [lb_av] MEDEN [...] 97 % [facility] ([facility] Kennedy body weight 105 [lb_av] 105 [lb_av] MEDEN T ([facility] Body mass index (BMI) [Ratio] 43.2 kg/m2 43.2 k g/m2 [facility] ([facility] Body weight 235 [lb_av] 235 [lb_av] eCW1 ([facility]) Body weight 106.59 kg 106.59 kg [facility] ([facility]) Body height 62 [in_i] 62 [in_i] eCW1 ([facility]) Body mass index (BMI) [Ratio] 42.98 kg/m2 42.98 kg/m2 eCW1 ([facility]) Systolic blood pressure 115 mm[Hg] 115 mm[Hg] e CW1 ([facility]) Diastolic blood pressure 74 mm[Hg] 74 mm[Hg] eCW1 ([facility]) Respiratory rate 18 /min 18 /min MEDENT ( [facility] Systolic blood pressure 139 mm[Hg] 139 mm[Hg] M EDENT ([facility] Diastolic blood pressure 84 mm[Hg] 84 mm[Hg] MEDENT ([facility] Heart rate 83 /min 83 /min MEDENT ([facility] Body temperature 97.4 [degF] 97.4 [degF] MEDENT ([facility] Body mass index (BMI) [Ratio] 44.1 kg/m2 44.1 k g/m2 MEDENT ([facility] Body height 61.50 [in_i] 61.50 [in_i] MEDENT ([facility] 5'1.50" Body weight 237.50 [lb_av] 237.50 [lb_av] MEDEN T ([facility] Oxygen saturation in Arterial blood by Pulse oximetry 98 % 98 % MEDENT ([facility] [place] body weight 105 [lb_av] 105 [lb_av] MEDEN T ([facility] Body weight [lb_av] eCW1 ([facility]) Body height 62 [in_i] 62 [in_i] eCW1 ([facility]) Body mass index (BMI) [Ratio] 43.71 kg/m2 43.71 kg/m2 W1 ([facility]) Heart rate 90 /min 90 /min eCW1 ([facility]) Respiratory rate 20 /min 20 /min eCW1 ([facility]) Body temperature 97.3 [degF] 97.3 [degF] eCW1 ( [facility]) Systolic blood pressure 132 mm[Hg] 132 mm[Hg] e CW1 ([facility]) Diastolic blood pressure 80 mm[Hg] 80 mm[Hg] eCW1 ([facility]) Systolic blood pressure 114 mm[Hg] 114 mm[Hg] [facility] Diastolic blood pressure 74 mm[Hg] 74 mm[Hg] [facility] Oxygen saturation in Arterial blood by Pulse oximetry 98 % 98 % [facility] Heart rate 89 /min 89 /min [facility] Body height 165.1 cm 165.1 cm [facility] Body weight 107.049 kg 107.049 kg [facility] Body mass index (BMI) [Ratio] 39.27 kg/m2 39.27 kg/m2 [facility] Body weight 239 [lb_av] 239 [lb_av] eCW1 ([facility]) Body height 62 [in_i] 62 [in_i] eCW1 ([facility]) Body mass index (BMI) [Ratio] 43.71 kg/m2 43.71 kg/m2 W1 ([facility]) Heart rate 106 /min 106 /min eCW1 ([facility]) Respiratory rate 20 /min 20 /min eCW1 ([facility]) Body temperature 97.7 [degF] 97.7 [degF] eCW1 ( [facility]) Systolic blood pressure 136 mm[Hg] 136 mm[Hg] e CW1 ([facility]) Diastolic blood pressure 86 mm[Hg] 86 mm[Hg] eCW1 ([facility]) Body weight 245 [lb_av] 245 [lb_av] eCW1 ([facility]) Body height 62 [in_i] 62 [in_i] eCW1 ([facility]) Body mass index (BMI) [Ratio] 44.81 kg/m2 44.81 kg/m2 [facility] ([facility]) Systolic blood pressure 130 mm[Hg] 130 mm[Hg] M EDENT ([facility] ) Body height 65 [in_i] 65 [in_i] MEDENT ([facility], ) 5'5" Body weight 240.00 [lb_av] 240.00 [lb_av] MEDEN T ([facility], ) Body mass index (BMI) [Ratio] 39.9 kg/m2 39.9 k g/m2 MEDENT ([facility] ) [place] body weight 125 [lb_av] 125 [lb_av] MEDEN T ([facility] ) Diastolic blood pressure 80 mm[Hg] 80 mm[Hg] MEDENT ([facility] ) Heart rate 70 /min 70 /min MEDENT ([facility] ) Respiratory rate 14 /min 14 /min MEDENT ( [facility] ) Body weight 245 [lb_av] 245 [lb_av] eCW1 ([facility]) Body height 62 [in_i] 62 [in_i] eCW1 ([facility]) Body mass index (BMI) [Ratio] 44.81 kg/m2 44.81 kg/m2 W1 ([facility]) Heart rate 100 /min 100 /min eCW1 ([facility]) Respiratory rate 20 /min 20 /min eCW1 ([facility]) Body temperature 96.7 [degF] 96.7 [degF] eCW1 ( [facility]) Systolic blood pressure 134 mm[Hg] 134 mm[Hg] e CW1 ([facility]) Diastolic blood pressure 88 mm[Hg] 88 mm[Hg] eCW1 ([facility]) Body weight 244.6 [lb_av] 244.6 [lb_av] eCW1 ([facility]) Body height 62 [in_i] 62 [in_i] eCW1 ([facility]) Body mass index (BMI) [Ratio] 44.73 kg/m2 44.73 kg/m2 eCW1 ([facility]) Heart rate 73 /min 73 /min eCW1 ([facility]) Respiratory rate 18 /min 18 /min eCW1 ([facility]) Body temperature 96.7 [degF] 96.7 [degF] eCW1 ( [facility]) Body weight 244.2 [lb_av] 244.2 [lb_av] eCW1 ([facility]) Body height 62 [in_i] 62 [in_i] eCW1 ([facility]) Body mass index (BMI) [Ratio] 44.66 kg/m2 44.66 kg/m2 eCW1 ([facility]) Heart rate 98 /min 98 /min eCW1 ([facility]) Respiratory rate 18 /min 18 /min eCW1 ([facility]) Body temperature 98.3 [degF] 98.3 [degF] eCW1 ( [facility]) Systolic blood pressure 130 mm[Hg] 130 mm[Hg] e CW1 ([facility]) Diastolic blood pressure 80 mm[Hg] 80 mm[Hg] eCW1 ([facility]) Systolic blood pressure 142 mm[Hg] 142 mm[Hg] e CW1 ([facility]) Body weight 243 [lb_av] 243 [lb_av] eCW1 ([facility]) Body height 62 [in_i] 62 [in_i] eCW1 ([facility]) Body mass index (BMI) [Ratio] 44.44 kg/m2 44.44 kg/m2 eCW1 ([facility]) Heart rate 104 /min 104 /min eCW1 ([facility]) Respiratory rate 18 /min 18 /min eCW1 ([facility]) Body temperature 97.9 [degF] 97.9 [degF] eCW1 ( [facility]) Diastolic blood pressure 80 mm[Hg] 80 mm[Hg] eCW1 ([facility]) Patient Treatment Plan of Care Planned Activity Planned Date Details Description Data Source (s) doxycycline hyclate 100 MG Oral Capsule 05/01/2020 12:00:00 AM EST eCW1 ([facility]) topiramate 50 MG Oral Tablet 05/01/2020 12:00:00 AM EST [facility] doxycycline hyclate 100 MG Oral Capsule 05/01/2020 12:00:00 AM EST eCW1 ([facility]) Sumatriptan 100 MG Oral Tablet 04/22/2020 12:00:00 AM EST [facility] Oxycodone Hydrochloride 5 MG Oral Tablet 04/21/2020 12:00:00 AM EST eCW1 ([facility]) Alprazolam 0.5 MG Oral Tablet 04/04/2020 12:00:00 AM EST [facility] Metoprolol Tartrate 25 MG Oral Tablet 03/30/2020 12:00:00 AM EST [facility] Oxycodone Hydrochloride 5 MG Oral Tablet 03/27/2020 12:00:00 AM EST eCW1 ([facility]) Verapamil hydrochloride 80 MG Oral Tablet 03/27/2020 12:00:00 AM ES T [facility] Prednisone 20 MG Oral Tablet 03/13/2020 12:00:00 AM EST eCW1 ([facility]) Prednisone 20 MG Oral Tablet 03/13/2020 12:00:00 AM EST eCW1 ([facility]) Furosemide 20 MG Oral Tablet 03/11/2020 12:00:00 AM EST [facility] Oxycodone Hydrochloride 5 MG Oral Tablet 02/28/2020 12:00:00 AM EST eCW1 ([facility]) Oxycodone Hydrochloride 5 MG Oral Tablet 02/28/2020 12:00:00 AM EST eCW1 ([facility]) Oxycodone Hydrochloride 5 MG Oral Tablet 02/28/2020 12:00:00 AM EST eCW1 ([facility]) Oxycodone Hydrochloride 5 MG Oral Tablet 01/27/2020 12:00:00 AM EDT eCW1 ([facility]) Oxycodone Hydrochloride 5 MG Oral Tablet 01/27/2020 12:00:00 AM EDT eCW1 ([facility]) Oxycodone Hydrochloride 5 MG Oral Tablet 01/27/2020 12:00:00 AM EDT eCW1 ([facility]) Verapamil hydrochloride 80 MG Oral Tablet 01/19/2020 12:00:00 AM ED T eCW1 ([facility]) Verapamil hydrochloride 80 MG Oral Tablet 01/19/2020 12:00:00 AM ED T eCW1 ([facility]) Verapamil hydrochloride 80 MG Oral Tablet 01/19/2020 12:00:00 AM ED T eCW1 ([facility]) atorvastatin 40 MG Oral Tablet 12/08/2019 12:00:00 [...]
[2021-01-30] MEDS ORDERED: IPRATROPIUM 0.5MG/ALBUTEROL 2.5MG INH SOL UD 3ML (DUONEB) NEB ONE (15:15)
[2021-01-30 15:26] LABS: RSV AMPLIFICATION NEGATIVE (NEGATIVE)
--- NOTE | 2021-01-30 15:29 | REP ---
INDICATION: cough/ wheezing. COMPARISON: Multiple the latest 04/26/2020 FINDINGS: The superior mediastinal structures are midline. The cardiac silhouette is unremarkable in size, shape, and position. The diaphragmatic surfaces of the lungs are regular, and the costophrenic angles are clear. The pulmonary wagner are clear. The imaged osseous structures are intact. IMPRESSION: There is no acute cardiopulmonary disease. <Electronically signed by Guevara Millan > 01/30/21 [id number]
--- OUTSIDE RECORDS SUMMARY | 2021-01-30 15:58 | CCD ---
Author Author [facility] Organization [facility] Address Unknown Phone Unavailable Care Team Providers Care Research Instructor Name Role Phone Priyankcan J Shaina SAP SECURITY CONSULTANT Unavailable Unavailable Kocan, J Shaina SAP SECURITY CONSULTANT Unavailable Unavailable Kocan, J Shaina SAP SECURITY CONSULTANT Unavailable Unavailable Kocan, J Shaina SAP SECURITY CONSULTANT Unavailable Unavailable Kocan, J Shaina SAP SECURITY CONSULTANT Unavailable Unavailable Kocan, J Shaina SAP SECURITY CONSULTANT Unavailable Unavailable Kocan, J Shaina SAP SECURITY CONSULTANT Unavailable Unavailable Kocan, J Shaina SAP SECURITY CONSULTANT Unavailable Unavailable Kocan, J Shaina SAP SECURITY CONSULTANT Unavailable Unavailable Kocan, J Shaina SAP SECURITY CONSULTANT Unavailable Unavailable Kocan, J Shaina SAP SECURITY CONSULTANT Unavailable Unavailable Kocan, J Shaina SAP SECURITY CONSULTANT Unavailable Unavailable Kocan, J Shaina SAP SECURITY CONSULTANT Unavailable Unavailable Kevin Gagnon PA-C Unavailable Unavailabl e Petrancosta, Morgan Regina PA-C Unavailable Unavailabl e Petrancosta, Morgan Regina PA-C Unavailable Unavailabl e Petrancosta, Morgan Regina PA-C Unavailable Unavailabl e Petrancosta, Morgan Regina PA-C Unavailable Unavailabl e Petrancosta, Morgan Regina PA-C Unavailable Unavailabl e Petrancosta, Morgan Regina PA-C Unavailable Unavailabl e Petrancosta, Morgan Regina PA-C Unavailable Unavailabl e Petrancosta, Morgan Regina PA-C Unavailable Unavailabl e Petrancosta, Morgan Regina PA-C Unavailable Unavailabl e Petrancosta, Morgan Regina PA-C Unavailable Unavailabl e Petrancosta, Morgan Regina PA-C Unavailable Unavailabl e Petrancosta, Morgan Regina PA-C Unavailable Unavailabl e Petrancosta, Morgan Regina PA-C Unavailable Unavailabl e Petrancosta, Morgan Regina PA-C Unavailable Unavailabl e Petrancosta, Morgan Regina PA-C Unavailable Unavailabl e Petrancosta, Morgan Regina PA-C Unavailable Unavailabl e Petrancosta, Morgan Regina PA-C Unavailable Unavailabl e Petrancosta, Morgan Regina PA-C Unavailable Unavailabl e Petrancosta, Morgan Regina PA-C Unavailable Unavailabl e Petrancosta, Morgan Regina PA-C Unavailable Unavailabl e Petrancosta, Morgan Regina PA-C Unavailable Unavailabl e Petrancosta, Morgan Regina PA-C Unavailable Unavailabl e Petrancosta, Morgan Regina PA-C Unavailable Unavailabl e Petrancosta, Morgan Regina PA-C Unavailable Unavailabl e Elinor Leung [...] Ali, Elinor MD Unavailable Unavailable Pleskach, Eden FRANKFURTER INSPECTOR Unavailable Unavailable Pleskach, Eden FRANKFURTER INSPECTOR Unavailable Unavailable Pleskach, Eden FRANKFURTER INSPECTOR Unavailable Unavailable Pleskach, Eden FRANKFURTER INSPECTOR Unavailable Unavailable Pleskach, Eden FRANKFURTER INSPECTOR Unavailable Unavailable Pleskach, Eden FRANKFURTER INSPECTOR Unavailable Unavailable Pleskach, Eden FRANKFURTER INSPECTOR Unavailable Unavailable Pleskach, Eden FRANKFURTER INSPECTOR Unavailable Unavailable Pleskach, Eden FRANKFURTER INSPECTOR Unavailable Unavailable Pleskach, Eden FRANKFURTER INSPECTOR Unavailable Unavailable Pleskach, Eden FRANKFURTER INSPECTOR Unavailable Unavailable Pleskach, Eden FRANKFURTER INSPECTOR Unavailable Unavailable Pleskach, Eden FRANKFURTER INSPECTOR Unavailable Unavailable Pleskach, Eden FRANKFURTER INSPECTOR Unavailable Unavailable Pleskach, Eden FRANKFURTER INSPECTOR Unavailable Unavailable Pleskach, Eden FRANKFURTER INSPECTOR Unavailable Unavailable Pleskach, Eden FRANKFURTER INSPECTOR Unavailable Unavailable Pleskach, Eden FRANKFURTER INSPECTOR Unavailable Unavailable Pleskach, Eden FRANKFURTER INSPECTOR Unavailable Unavailable Pleskach, Eden FRANKFURTER INSPECTOR Unavailable Unavailable Pleskach, Eden FRANKFURTER INSPECTOR Unavailable Unavailable Pleskach, Eden FRANKFURTER INSPECTOR Unavailable Unavailable Pleskach, Eden FRANKFURTER INSPECTOR Unavailable Unavailable Pleskach, Eden FRANKFURTER INSPECTOR Unavailable Unavailable Pleskach, Eden FRANKFURTER INSPECTOR Unavailable Unavailable Pleskach, Eden FRANKFURTER INSPECTOR Unavailable Unavailable Pleskach, Eden FRANKFURTER INSPECTOR Unavailable Unavailable Pleskach, Eden FRANKFURTER INSPECTOR Unavailable Unavailable Pleskach, Eden FRANKFURTER INSPECTOR Unavailable Unavailable Pleskach, Eden FRANKFURTER INSPECTOR Unavailable Unavailable Pleskach, Eden FRANKFURTER INSPECTOR Unavailable Unavailable Pleskach, Eden FRANKFURTER INSPECTOR Unavailable Unavailable Pleskach, Eden FRANKFURTER INSPECTOR Unavailable Unavailable Pleskach, Eden FRANKFURTER INSPECTOR Unavailable Unavailable Pleskach, Eden FRANKFURTER INSPECTOR Unavailable Unavailable Pleskach, Eden FRANKFURTER INSPECTOR Unavailable Unavailable Pleskach, Eden FRANKFURTER INSPECTOR Unavailable Unavailable Pleskach, Eden FRANKFURTER INSPECTOR Unavailable Unavailable Pleskach, Eden FRANKFURTER INSPECTOR Unavailable Unavailable Pleskach, Eden FRANKFURTER INSPECTOR Unavailable Unavailable Pleskach, Eden FRANKFURTER INSPECTOR Unavailable Unavailable Pleskach, Eden FRANKFURTER INSPECTOR Unavailable Unavailable Pleskach, Eden FRANKFURTER INSPECTOR Unavailable Unavailable Osei, A Gladys FERRERA Unavailable [...] Unavailable Osei, A Gladys MD Unavailable Unavailable Soei, A Gladys MD Unavailable Unavailable Osei, A [...] A Gladys FERRERA Unavailable Unavailable Osei, A lGadys FERRERA Unavailable Unavailable Osei, A Gladys FERRERA [...] Graham MD Unavailable Unavailable Braulio Mccarty Unavailable [phone] Braulio Mccarty Unavailable [phone] Braulio Mccarty Unavailable [phone] Braulio Mccarty Unavailable [phone] Braulio Mccarty Unavailable [phone] Braulio Mccarty Unavailable [phone] Jacob CEJA MD Unavailable Unavailable Jacob CEJA [...] Unavailable Jacob CEJA MD Unavailable Unavailable Chakraborty, Codorus Kim Unavailable Unavailable Chakraborty, Codorus Kim Unavailable Unavailable Chakraborty, Codorus Kim Unavailable Unavailable Chakraborty, Codorus Kim Unavailable Unavailable Chakraborty, Codorus Kim Unavailable Unavailable Chakraborty, Codorus Kim Unavailable Unavailable Chakraborty, Codorus Kim Unavailable Unavailable Chakraborty, Codorus Kim Unavailable Unavailable Chakraborty, Codorus Kim Unavailable Unavailable Chakraborty, Codorus Kim Unavailable Unavailable Chakraborty, Codorus Kim Unavailable Unavailable Chakraborty, Codorus Kim Unavailable Unavailable Chakraborty, Codorus Kim Unavailable Unavailable Re-disclosure Warning The records [...] is protected by Article 27-F of the [facility] Public Health law. If you continue you may have access to information: Regarding HIV / AIDS; Provided by facilities licensed or operated by the [facility] Office of Mental Health; or Provided by the [facility] Office for People With Developmental Disabilities. If such information is present, then the following [facility] mandated warning applies: This information has [...] law may result in a fine or shelter sentence or both. A general authorization for the release of medical or other information is NOT sufficient authorization for further disc losure. Allergies and Adverse Reactions Type Description Substance Reaction Status Data Source(s ) Allergy to substance Allergy to substance Allergy to substance [facility] ([facility]) Allergy to substance Allergy to substance Allergy to substance [place] ([facility]) Family History Family Member Name Family Member Gender Family Member Status Date o f Status Description Data Source(s) Unknown Male Problem MEDENT ([facility] ) Unknown Female Problem MEDENT ([facility]) Unknown Unknown Problem MEDENT ([facility]) Unknown Female Problem [facility] Encounters Encounter Providers Location Date Indications Data Source(s ) Outpatient [address] [facility], [facility] [id number] 01/17/2021 12:00:00 AM EDT eCW1 ([facility]) Outpatient Attender: Eden Camara [facility] Main Office 12/15/2020 1 2:15:00 PM EDT MED[facility] ([facility] Outpatient Attender: Gladys Franz MD Main Office 12/12/2020 02:00:0 0 PM EDT MED[facility] ([facility] Outpatient Attender: Gladys Franz MD Main Office 11/15/2020 11:15:0 0 AM EDT MEDENT ([facility] Outpatient Attender: KEVIN Layne/Wale/Guy fairbanks/Reinchristina 10/11/2020 10:30:00 AM EDT MEDENT ([facility]) Unknown [address] [place] [phone] 09/08/2020 12:00:00 AM EDT eCW1 ([facility]) Outpatient Attender: Gladys Franz MD Main Office 08/29/2020 03:30:0 0 PM EDT MEDENT ([facility] Outpatient Attender: Gladys Franz MD Main Office 08/25/2020 10:45:0 0 AM EDT MEDENT ([facility] Office Visit Attender: Elinor Leung MD Main office - [place] 08/18/2020 09:00:00 AM EDT MEDENT ([facility], ) Outpatient Attender: Gladys Franz MD Main Office 08/15/2020 01:30:0 0 PM EDT MEDENT ([facility] ANJUM HeC: [address] [place] [phone], Ph. Attender: Kim Chakraborty [facility] Medical 08/15/2020 12:00:00 AM EDT JILLIAN ([facility]) ANJUM HeC: [address] [place] [address], Ph. Attender: Kim Chakraborty [facility] Medical 07/18/2020 12:00:00 AM EDT JILLIAN ([facility]) Kim Chakraborty FRANKFURTER INSPECTOR-C: [address] [place] [address], Ph. Attender: Kim MITCHELL - [facility] Medical 07/18/2020 12:00:00 AM EDT JILLIAN ([facility]) Outpatient Attender: Regina Gagnon PA-C Main Office 07/10/2020 09:45:00 AM EDT MEDENT ([facility] Outpatient Attender: Braulio Mccarty 07/05 05:56:26 PM EDT - 07/05/2020 07:52:20 PM EDT Docu[facility]ap ([facility] ) Outpatient Attender: Regina Gagnon PA-C Main Office 06/19/2020 09:45:00 AM EDT MEDENT ([facility] Outpatient Attender: Regina Gagnon PA-C Main Office 06/07/2020 12:45:00 PM EST MED[facility] ([facility] Outpatient [address] [facility] [id number] 05/31/2020 12:00:00 AM EST eCW1 ([facility]) Outpatient Attender: Elinor Leung MD Main office - [place] 05/25/2020 12:45:00 PM EST MEDENT ([facility], ) Outpatient Attender: Regina Gagnon PA-C Main Office 05/17/2020 12:30:00 PM EST MEDENT ([facility] Unknown [address] [facility], [facility] [address] 05/12/2020 12:00:00 AM EST eCW1 ([facility]) Outpatient [address] [facility] [id number] 05/11/2020 12:00:00 AM EST eCW1 ([facility]) Outpatient Attender: Shaina BURKETTP.[email or web address].RAZ 2020 12:00:00 AM EST - 05/03/2020 03:12:[address] [facility] Unknown [address] [facility] [place] [address] 04/27/2020 12:00:00 AM EST eCW1 ([facility]) Outpatient [address] [facility] [place] [address] 04/26/2020 12:00:00 AM EST eCW1 ([facility]) Unknown [address] [facility] Y [address] 04/26/2020 12:00:00 AM EST [facility]CW1 [facility]) TeleMedicine Phone E/M by Phys 11-[address] [place] [phone] 04/24/2020 12:00:00 AM EST eCW1 ([facility]) Unknown [address] [facility], [place] [address] 04/21/2020 12:00:00 AM EST eCW1 ([facility]) Unknown [address] [facility] Y [address] 04/19/2020 12:00:00 AM EST eCW1 ([facility]) Unknown [address] [facility] Y [address] 04/11/2020 12:00:00 AM EST eCW1 ([facility]) Unknown [address] [facility] Y [address] 04/10/2020 12:00:00 AM EST eCW1 [facility]) Outpatient Attender: Elinor Leung MD Main office - [place] 04/03/2020 11:00:00 AM EST MEDENT ([facility] KIRBY almonte) Outpatient [address] [facility] Y [address] 03/29/2020 12:00:00 AM EST eCW1 [facility]) Unknown [address] [facility] [address] 03/27/2020 12:00:00 AM EST eCW1 ([facility]) [place] [address] [facility] [address] 03/13/2020 12:00:00 AM EST eCW1 ([facility]) [place] [address] [facility] [address] 03/10/2020 12:00:00 AM EST eCW1 ([facility]) [place] [address] [facility] [address] 02/28/2020 12:00:00 AM EST eCW1 ([facility]) Out[place] [address] [facility] [address] 02/18/2020 12:00:00 AM EST eCW1 ([facility]) Unknown [address] [facility] [address] 01/27/2020 12:00:00 AM EDT eCW1 ([facility]) Outpatient [address] [facility] [address] 01/19/2020 12:00:00 AM EDT eCW1 ([facility]) Outpatient [address] [facility] [address] 01/12/2020 12:00:00 AM EDT eCW1 ([facility]) Immunizations Vaccine Date Status Description Data Source(s) COVID-19, mRNA, LNP-S, PF, 100 mcg/0.5 mL dose 08/15/2020 05 :29:01 PM EDT completed 10.5 mL J[facility]IAN ([facility]) Moderna Sars-(Covid-19) vaccine, mRNA, LNP-S, PF, 100 mcg/ 0.5 mL 08/15/2020 12:00:00 AM EDT completed [facility] ([facility] COVID-19 VACCINE Moderna 08/15/2020 12:00:00 AM EDT completed [facility] Vaccine Series Complete: YESThis Data wa s Submitted to [facility] Via [facility]. COVID-19, mRNA, LNP-S, PF, 100 mcg/0.5 mL dose 07/18/2020 08 :34:00 AM EDT completed .5 mL JILLIAN ([facility]) Moderna Sars-(Covid-19) vaccine, mRNA, LNP-S, PF, 100 mcg/ 0.5 mL 07/18/2020 12:00:00 AM EDT completed [facility] ([facility] COVID-19 VACCINE Moderna 07/18/2020 12:00:00 AM EDT completed [facility] Vaccine Series Complete: NOThis Data was Submitted to [facility] Via CARDFREE in 2011. IIV4 05/02/2020 11:00:00 PM EST [...] DAILY DOSE = 2 TABLETS SOLD: 01/16/2021 [facility] 100 mg 2020 12:00:00 AM EDT [...] {capsule} suspended Doxycycline Hyclate 100 MG eCW1 ([facility]) doxycycline hyclate 100 MG Oral Capsule Doxycycline Hy clate 100 MG Doxycycline Hyclate 100 MG 05/01/2020 12:00:00 AM EST 1.0 {capsule} suspended Doxycycline Hyclate 100 MG eCW1 ([facility]) doxycycline hyclate 100 MG Oral Capsule Doxycycline Hy clate 100 MG Doxycycline Hyclate 100 MG 05/01/2020 12:00:00 AM EST 1.0 {capsule} suspended Doxycycline Hyclate 100 MG eCW1 ([facility]) doxycycline hyclate 100 MG Oral Capsule Doxycycline Hy clate 100 MG Doxycycline Hyclate 100 MG 05/01/2020 12:00:00 AM EST 1.0 {capsule} active Doxycycline Hyclate 100 MG eCW1 ([facility]) doxycycline hyclate 100 MG Oral Capsule Doxycycline Hy clate 100 MG Doxycycline Hyclate 100 MG 05/01/2020 12:00:00 AM EST 1.0 {capsule} suspended Doxycycline Hyclate 100 MG eCW1 ([facility]) doxycycline hyclate 100 MG Oral Capsule Doxycycline Hy clate 100 MG Doxycycline Hyclate 100 MG 05/01/2020 12:00:00 AM EST 1.0 {capsule} suspended Doxycycline Hyclate 100 MG eCW1 ([facility]) topiramate 50 MG Oral Tablet topiramate (TOPAMAX) 50 M G tablet topiramate (TOPAMAX) 50 MG tablet 05/01/2020 12:00:00 AM EST active [facility] doxycycline hyclate 100 MG Oral Capsule Doxycycline Hy clate 100 MG Doxycycline Hyclate 100 MG 05/01/2020 12:00:00 AM EST 1.0 {capsule} suspended Doxycycline Hyclate 100 MG eCW1 ([facility]) doxycycline hyclate 100 MG Oral Capsule Doxycycline Hy clate 100 MG Doxycycline Hyclate 100 MG 05/01/2020 12:00:00 AM EST 1.0 {capsule} active Doxycycline Hyclate 100 MG eCW1 ([facility]) doxycycline hyclate 100 MG Oral Capsule DOXYCYCLINE [...] 2 HOURS. MAXIMUM DAILY DOSE TWO TABLETS [facility] Oxycodone Hydrochloride 5 MG Oral Tablet Oxycodone HCl 5 MG Oxycodone HCl 5 MG 04/21/2020 12:00:00 AM EST active Oxycodone HCl 5 MG eCW1 ([facility]) Oxycodone Hydrochloride 5 MG Oral Tablet Oxycodone HCl 5 MG Oxycodone HCl 5 MG 04/21/2020 12:00:00 AM EST active Oxycodone HCl 5 MG eCW1 ([facility]) Oxycodone Hydrochloride 5 MG Oral Tablet Oxycodone HCl 5 MG Oxycodone HCl 5 MG 04/21/2020 12:00:00 AM EST active Oxycodone HCl 5 MG eCW1 ([facility]) Oxycodone Hydrochloride 5 MG Oral Tablet Oxycodone HCl 5 MG Oxycodone HCl 5 MG 04/21/2020 12:00:00 AM EST active Oxycodone HCl 5 MG eCW1 ([facility]) Oxycodone Hydrochloride 5 MG Oral Tablet Oxycodone HCl 5 MG Oxycodone HCl 5 MG 04/21/2020 12:00:00 AM EST active Oxycodone HCl 5 MG eCW1 ([facility]) Oxycodone Hydrochloride 5 MG Oral Tablet Oxycodone HCl 5 MG Oxycodone HCl 5 MG 04/21/2020 12:00:00 AM EST active Oxycodone HCl 5 MG eCW1 ([facility]) Oxycodone Hydrochloride 5 MG Oral Tablet Oxycodone HCl 5 MG Oxycodone HCl 5 MG 04/21/2020 12:00:00 AM EST active Oxycodone HCl 5 MG eCW1 ([facility]) Oxycodone Hydrochloride 5 MG Oral Tablet oxyCODONE HCl 5 MG oxyCODONE HCl 5 MG 04/21/2020 12:00:00 AM EST active oxyCODONE HCl 5 MG eCW1 ([facility]) 5 mg 04/21/2020 12:00:00 AM EST tablet [...] active Oxycodone HCl 5 MG eCW1 ([facility]) Oxycodone Hydrochloride 5 MG Oral Tablet Oxycodone HCl 5 MG Oxycodone HCl 5 MG 04/21/2020 12:00:00 AM EST active Oxycodone HCl 5 MG eCW1 ([facility]) Alprazolam 0.5 MG Oral Tablet ALPRAZolam (XANAX) 0.5 M G tablet ALPRAZolam (XANAX) 0.5 MG tablet 04/04/2020 12:00:00 AM EST active TAKE ONE TABLET BY MOUTH 30 MINUTES BEFORE MRI SCAN MAY REPEAT ONCE NEEDED. MAXIMUM DAILY DOSE TWO TABLETS [facility] Sumatriptan 100 MG Oral Tablet Sumatriptan Succinate 04/03/2020 12:00:00 AM EST ORAL active MEDENT ( [facility] ) Alprazolam 0.5 MG Oral Tablet Alprazolam 04/03/2020 12:00:00 AM EST ORAL active MEDENT ([facility], ) topiramate 50 MG Oral Tablet Topiramate 04/03/2020 12:00:00 AM EST completed MEDENT ([facility], ) 25 mg 03/30/2020 12:00:00 [...] mg Oral active Take 25 mg by [facility] 2 (two) times a day [facility] Metoprolol Tartrate 25 MG Oral Tablet Metoprolol Tartrate 25 MG 03/29/2020 12:00:00 AM EST 1.0 {tablet_with_food} active Metoprolol Tartrate 25 MG eCW1 ([facility]) Metoprolol Tartrate 25 MG Oral Tablet Metoprolol Tartrate 25 MG 03/29/2020 12:00:00 AM EST 1.0 {tablet_with_food} active Metoprolol Tartrate 25 MG eCW1 ([facility]) Metoprolol Tartrate 25 MG Oral Tablet Metoprolol Tartrate 25 MG 03/29/2020 12:00:00 AM EST 1.0 {tablet_with_food} active Metoprolol Tartrate 25 MG eCW1 ([facility]) Metoprolol Tartrate 25 MG Oral Tablet Metoprolol Tartrate 25 MG 03/29/2020 12:00:00 AM EST 1.0 {tablet_with_food} active Metoprolol Tartrate 25 MG eCW1 ([facility]) Metoprolol Tartrate 25 MG Oral Tablet Metoprolol Tartrate 25 MG 03/29/2020 12:00:00 AM EST 1.0 {tablet_with_food} active Metoprolol Tartrate 25 MG eCW1 ([facility]) Metoprolol Tartrate 25 MG Oral Tablet Metoprolol Tartrate 25 MG 03/29/2020 12:00:00 AM EST 1.0 {tablet_with_food} active Metoprolol Tartrate 25 MG eCW1 ([facility]) Metoprolol Tartrate 25 MG Oral Tablet Metoprolol Tartrate 25 MG 03/29/2020 12:00:00 AM EST 1.0 {tablet_with_food} active Metoprolol Tartrate 25 MG eCW1 ([facility]) Metoprolol Tartrate 25 MG Oral Tablet Metoprolol Tartrate 25 MG 03/29/2020 12:00:00 AM EST 1.0 {tablet_with_food} active Metoprolol Tartrate 25 MG eCW1 ([facility]) Metoprolol Tartrate 25 MG Oral Tablet Metoprolol Tartrate 25 MG 03/29/2020 12:00:00 AM EST 1.0 {tablet_with_food} active Metoprolol Tartrate 25 MG eCW1 ([facility]) Metoprolol Tartrate 25 MG Oral Tablet Metoprolol Tartrate 25 MG 03/29/2020 12:00:00 AM EST 1.0 {tablet_with_food} active Metoprolol Tartrate 25 MG eCW1 ([facility]) Metoprolol Tartrate 25 MG Oral Tablet Metoprolol Tartrate 25 MG 03/29/2020 12:00:00 AM EST 1.0 {tablet_with_food} active Metoprolol Tartrate 25 MG eCW1 ([facility]) Metoprolol Tartrate 25 MG Oral Tablet Metoprolol Tartrate 25 MG 03/29/2020 12:00:00 AM EST 1.0 {tablet_with_food} active Metoprolol Tartrate 25 MG eCW1 ([facility]) Metoprolol Tartrate 25 MG Oral Tablet Metoprolol Tartrate 25 MG 03/29/2020 12:00:00 AM EST 1.0 {tablet_with_food} active Metoprolol Tartrate 25 MG eCW1 ([facility]) Metoprolol Tartrate 25 MG Oral Tablet Metoprolol Tartrate 25 MG 03/29/2020 12:00:00 AM EST 1.0 {tablet_with_food} active Metoprolol Tartrate 25 MG eCW1 ([facility]) Oxycodone Hydrochloride 5 MG Oral Tablet Oxycodone HCl 5 MG Oxycodone HCl 5 MG 03/27/2020 12:00:00 AM EST active Oxycodone HCl 5 MG eCW1 ([facility]) Oxycodone Hydrochloride 5 MG Oral Tablet Oxycodone HCl 5 MG Oxycodone HCl 5 MG 03/27/2020 12:00:00 AM EST active Oxycodone HCl 5 MG eCW1 ([facility]) Oxycodone Hydrochloride 5 MG Oral Tablet Oxycodone HCl 5 MG Oxycodone HCl 5 MG 03/27/2020 12:00:00 AM EST active Oxycodone HCl 5 MG eCW1 ([facility]) Oxycodone Hydrochloride 5 MG Oral Tablet Oxycodone HCl 5 MG Oxycodone HCl 5 MG 03/27/2020 12:00:00 AM EST active Oxycodone HCl 5 MG eCW1 ([facility]) Verapamil hydrochloride 80 MG Oral Tablet verapamil (C BRANDON) 80 MG tablet verapamil (CALAN) 80 MG tablet 03/27/2020 12:00:00 AM EST 80 mg Or al active Take 80 mg by mouth 3 (three) ti mes a day [facility] Oxycodone Hydrochloride 5 MG Oral Tablet Oxycodone HCl 5 MG Oxycodone HCl 5 MG 03/27/2020 12:00:00 AM EST active Oxycodone HCl 5 MG eCW1 ([facility]) 5 mg 03/27/2020 12:00:00 AM EST [...] {tablets} suspended PredniSONE 20 MG eCW1 ([facility]) Prednisone 20 MG Oral Tablet PredniSONE 20 MG PredniSONE 20 MG 03/13/2020 12:00:00 AM EST 2.0 {tablets} active P redniSONE 20 MG eCW1 ([facility]) Prednisone 20 MG Oral Tablet PredniSONE 20 MG PredniSONE 20 MG 03/13/2020 12:00:00 AM EST 2.0 {tablets} active P redniSONE 20 MG eCW1 ([facility]) Prednisone 20 MG Oral Tablet PredniSONE 20 MG PredniSONE 20 MG 03/13/2020 12:00:00 AM EST 2.0 {tablets} suspended PredniSONE 20 MG eCW1 ([facility]) Prednisone 20 MG Oral Tablet PredniSONE 20 MG PredniSONE 20 MG 03/13/2020 12:00:00 AM EST 2.0 {tablets} suspended PredniSONE 20 MG eCW1 ([facility]) Prednisone 20 MG Oral Tablet PredniSONE 20 MG PredniSONE 20 MG 03/13/2020 12:00:00 AM EST 2.0 {tablets} suspended PredniSONE 20 MG eCW1 ([facility]) Prednisone 20 MG Oral Tablet PredniSONE 20 MG PredniSONE 20 MG 03/13/2020 12:00:00 AM EST 2.0 {tablets} suspended PredniSONE 20 MG eCW1 ([facility]) Prednisone 20 MG Oral Tablet PredniSONE 20 MG PredniSONE 20 MG 03/13/2020 12:00:00 AM EST 2.0 {tablets} suspended PredniSONE 20 MG eCW1 ([facility]) Prednisone 20 MG Oral Tablet PredniSONE 20 MG PredniSONE 20 MG 03/13/2020 12:00:00 AM EST 2.0 {tablets} suspended PredniSONE 20 MG eCW1 (Formerly [facility]) Prednisone 20 MG Oral Tablet PredniSONE 20 MG PredniSONE 20 MG 03/13/2020 12:00:00 AM EST 2.0 {tablets} suspended PredniSONE 20 MG eCW1 (Formerly [facility]) Prednisone 20 MG Oral Tablet PredniSONE 20 MG PredniSONE 20 MG 03/13/2020 12:00:00 AM EST 2.0 {tablets} suspended PredniSONE 20 MG eCW1 (Formerly [facility]) Prednisone 20 MG Oral Tablet predniSONE 20 MG predniSONE 20 MG 03/13/2020 12:00:00 AM EST 2.0 {tablets} suspended predniSONE 20 MG eCW1 (Formerly [facility]) Prednisone 20 MG Oral Tablet PredniSONE 20 MG PredniSONE 20 MG 03/13/2020 12:00:00 AM EST 2.0 {tablets} suspended PredniSONE 20 MG eCW1 (Formerly [facility]) 20 mg 03/13/2020 12:00:00 AM EST tablet 4 TAKE TWO TABLETS BY MOUTH EVERY DAY TAKE TWO TABLETS BY MOUTH EVERY DAY SOLD: 03/17/2020 [facility] Prednisone 20 MG Oral Tablet PredniSONE 20 MG PredniSONE 20 MG 03/13/2020 12:00:00 AM EST 2.0 {tablets} suspended PredniSONE 20 MG eCW1 (Formerly [facility]) Prednisone 20 MG Oral Tablet PredniSONE 20 MG PredniSONE 20 MG 03/13/2020 12:00:00 AM EST 2.0 {tablets} suspended PredniSONE 20 MG eCW1 (Formerly [facility]) Prednisone 20 MG Oral Tablet PredniSONE 20 MG PredniSONE 20 MG 03/13/2020 12:00:00 AM EST 2.0 {tablets} suspended PredniSONE 20 MG eCW1 (Formerly [facility]) pantoprazole 40 MG Delayed Release Oral Tablet [...] TAKE ONE TABLET BY MOUTH E VERY [facility] Edema, unspecified type Benign essential hypertension [...] active Oxycodone HCl 5 MG eCW1 (Formerly [facility]) Oxycodone Hydrochloride 5 MG Oral Tablet Oxycodone HCl 5 MG Oxycodone HCl 5 MG 02/28/2020 12:00:00 AM EST active Oxycodone HCl 5 MG eCW1 (Formerly [facility]) Oxycodone Hydrochloride 5 MG Oral Tablet Oxycodone HCl 5 MG Oxycodone HCl 5 MG 02/28/2020 12:00:00 AM EST active Oxycodone HCl 5 MG eCW1 ([facility]ly [facility]) 5 mg 01/29/2020 12:00:00 AM EDT tablet [...] active Oxycodone HCl 5 MG eCW1 ([facility]ly [facility]) Oxycodone Hydrochloride 5 MG Oral Tablet Oxycodone HCl 5 MG Oxycodone HCl 5 MG 01/27/2020 12:00:00 AM EDT active Oxycodone HCl 5 MG eCW1 ([facility]ly [facility]) Oxycodone Hydrochloride 5 MG Oral Tablet Oxycodone HCl 5 MG Oxycodone HCl 5 MG 01/27/2020 12:00:00 AM EDT active Oxycodone HCl 5 MG eCW1 ([facility]ly [facility]) Oxycodone Hydrochloride 5 MG Oral Tablet Oxycodone HCl 5 MG Oxycodone HCl 5 MG 01/27/2020 12:00:00 AM EDT active Oxycodone HCl 5 MG eCW1 ([facility]ly [facility]) 80 mg 01/20/2020 12:00:00 AM EDT [...] e Verapamil HCl 80 MG eCW1 ([facility]ly [facility]) Verapamil hydrochloride 80 MG Oral Tablet Verapamil HC l 80 MG Verapamil HCl 80 MG 01/19/2020 12:00:00 AM EDT 1.0 {tablet} activ e Verapamil HCl 80 MG eCW1 ([facility]ly [facility]) Verapamil hydrochloride 80 MG Oral Tablet Verapamil HC l 80 MG Verapamil HCl 80 MG 01/19/2020 12:00:00 AM EDT 1.0 {tablet} activ e Verapamil HCl 80 MG eCW1 ([facility]ly [facility]) Verapamil hydrochloride 80 MG Oral Tablet Verapamil HC l 80 MG Verapamil HCl 80 MG 01/19/2020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 4.00-5.40 Normal (applies to non-numeric results) [facility] ([facility]) White Blood Count 5.7 10 4.0-10.0 Normal (applies to non-numeri c results) [facility] ([facility]) Mean Corpuscular Volume 87.9 fl 80.0-96.0 Normal ( applies to non-numeric results) [facility] ([facility]) Hemoglobin 13.8 g/dL 12.0-15.5 Normal (applies to non-numeric resul ts) [facility] ([facility]) Hematocrit 43.6 % 36.0-47.0 Normal (applies to non-numeric resul ts) [facility] [place] [facility]) Mean Corpuscular HGB Conc 31.7 g/dL 32.0-36.5 Below low normal [facility] ([facility]) Mean Corpuscular Hemoglobin 27.8 pg 27.0-33.0 Norm al (applies to non-numeric results) [facility] ([facility]) Neutrophils % 55.2 % 36.0-66.0 Normal (applies to non-numeric re sults) [facility] ([facility]) Platelet Count, Automated 278 10 150-450 Normal (applies to non-numeric results) [facility] [place]) Red Cell Distribution Width 12.9 % 11.5-14.5 Norm al (applies to non-numeric results) [facility]) Lymph % 32.3 % 24.0-44.0 Normal (applies to non-numeric resul ts) [facility] ([facility]) [place] % 8.8 % 2.0-8.0 Above high normal [facility] ([facility]) Baso % 0.5 % 0.0-1.0 Normal (applies to non-numeric resul ts) [facility] ([facility]) Eos % 3.0 % 0.0-3.0 Normal (applies to non-numeric resul ts) [facility] ([facility]) Nucleated Red Blood Cell % 0.0 % 0-0 Normal (applies to n on-numeric results) [facility] ([facility]) Immature Granulocyte % 0.2 % 0-3.0 Normal (applies to non-n umeric results) [facility] ([facility]) Neutrophils # 3.1 10 1.5-8.5 Normal (applies to non-numeric re sults) [facility] ([facility]) Lymph # 1.8 10 1.5-5.0 Normal (applies to non-numeric resul ts) [facility] ([facility]) [place] # 0.5 10 0.0-0.8 Normal (applies to non-numeric resul ts) [facility] ([facility]) Eos # 0.2 10 0.0-0.5 Normal (applies to non-numeric resul ts) [facility] ([facility]) Baso # 0.0 10 0.0-0.2 Normal (applies to non-numeric resul ts) [facility] ([facility]) ID Date Data Source [id number] 08/25/2020 11:16:00 AM EDT [facility] ([facility] Name Value Range Interpretation Code Description Data Lynette rce(s) Supporting Document(s) Bacteria identified in Urine by Culture Laboratory test result [facility] ([facility] FULL REPORT IN LAB NOTES (eCW and [facility] ). SPECIMEN APPEARS CONTAMINATED ID Date Data Source [id number] 08/20/2020 08:21:00 PM EDT [facility] ([facility] Name Value Range Interpretation Code Description Data Lynette rce(s) Supporting Document(s) Reflex Urine Culture Laboratory test result [facility] ([facility] FULL REPORT IN LAB NOTES (eCW and [facility] ). SPECIMEN APPEARS CONTAMINATED ID Date Data Source [id number] 08/20/2020 08:21:00 PM EDT [facility] ([facility] Name Value Range Interpretation Code Description Data [facility] rce(s) Supporting Document(s) Appearance, Urine RFX Laboratory test result [facility] ([facility] Color, Urine RFX Laboratory test result [facility] ([facility] PH,Urine RFX 5.0 units 5.0-9.0 [facility] ([facility] Protein, Urine Auto RFX Laboratory test result [facility] ([facility] Specific [place] Ur Auto RFX 1.029 1.002-1.035 [facility] ([facility] [...] [facility] ID Date Data Source [id number] 07/07/2020 11:32:00 PM EDT [facility] Name Value Range Interpretation Code Description Data Lynette rce(s) Supporting Document(s) COVID-19 RT-PCR [employer] Not Detected [facility] A not detected (negative) test result [...] developed and its performance characteristics determined by [employer] and verified at [facility]. It has not been cleared or approved by the U.S. Food and Drug Administration for diagnostic use. This test has been authorized by FDA under an EUA for use by authorized laboratories. Results should be used in conjunction with clinical findings, and should not form the sole basis for a diagnosis or treatment decision. Methods: SARS-CoV-2 Multiplex RT-PCR Assay ID Date Data Source [id number] 07/05/2020 06:15:00 PM EDT [facility] Name Value Range Interpretation Code Description Data Lynette rce(s) Supporting Document(s) SARS-CoV-2 (COVID-19) N gene [Presence] in Respiratory specimen by JORI with probe detection NEGATIVE [facility] This lab was ordered by Charley Sequeira and reported by [facility]. ID Date Data Source [id number] 07/05/2020 12:00:00 AM EDT [facility] Name Value Range Interpretation Code Description Data Lynette rce(s) Supporting Document(s) Carestart Rapid COVID Antigen Test Negative [facility] This lab was reported by Charley celaya. ID Date Data Source [id number] 05/18/2020 02:28:00 PM EST [facility] ([facility] Name Value Range Interpretation Code Description Data Lynette rce(s) Supporting Document(s) Opiates [Mass/volume] in Urine Laboratory test result [facility] ([facility] Opiate test includes Codeine and Morphin e only. Performed at: [address] [id number] Pan Puller: Yarely Torres MD, Phone: [phone] ID Date Data Source [id number] 05/18/2020 02:28:00 PM EST [facility] ([facility] [...] Confirmation Reflex test will be sent to [employer], [address] [place] [address] Phencyclidine Urine Reflex Laboratory test result [facility] ([facility] ALL PRESUMPTIVE POSITIVE FINDINGS AR E UNCONFIRMED THRESHOLD IN NG/ML AMPHETAMINES 1000 BARBITURATES 200 BENZODIAZEPINES 200 CANNABINOIDS (THC) 50 COCAINE METABOLITE 300 METHADONE 300 OPIATES 300 PHENCYCLIDINE 25 RESULTS ARE FOR MEDICAL PURPOSES ONLY. FOR A LIST OF CLOSELY RELATED COMPOUNDS CALL THE LAB ([id number]). URINE DRUG CLASSES THAT GIVE A POSITIVE RESULT WILL BE SENT OUT FOR QUANTITATIVE CONFIRMATION TO A REFERENCE LAB PROVIDED THERE IS A SUFFICIENT AMOUNT OF SPECIMEN REMAINING. ID Date Data Source [id number] 05/18/2020 02:22:00 PM EST [facility] ([facility] [...] Little GFR Left</content>
<content>ESRD GFR <15 on NURSE CHEMICAL DEPENDENCY</content>
<content></content> Creatinine For GFR 0.74 mg/dL 0.55-1.30 [...] [facility] ID Date Data Source [id number] 05/18/2020 02:22:00 PM EST [facility] ([facility] [...] [facility] ID Date Data Source [id number] 05/18/2020 02:22:00 PM EST [facility] ([facility] Name Value Range Interpretation Code Description Data Lynette rce(s) Supporting Document(s) Hemoglobin A1c/Hemoglobin.total in Blood 5.8 % [facility] ([facility] <content>REFERENCE RANGES:</content><br/ ><content></content>
<content><=5.6% NORMAL</content>
<content>5.7-6.4% SUGGESTS IMPAIRED GLUCOSE METABOLISM/PREDIABETIC</content>
<content>>= 6.5% ABNORMAL</content>
<content></content> Estimated Average Glucose 120 mg/dL 60-110 [facility] ([facility] ID Date Data Source [id number] 04/21/2020 01:36:00 PM EST [facility] Name Value Range Interpretation Code Description Data Lynette rce(s) Supporting Document(s) SARS coronavirus 2 RNA Not Detected [facility] This lab was ordered by [facility] and reported by [facility]. ID Date Data Source [id number] 03/07/2020 09:33:00 PM EST [facility] Name Value Range Interpretation Code Description Data Lynette rce(s) Supporting Document(s) SARS coronavirus 2 RNA [facility] This lab was ordered by [facility] and reported by [facility]. ID Date Data Source Urinalysis, no micro 01/12/2020 05:25:12 AM EDT eCW1 ([facility]) Name Value Range Interpretation Code Description Data Lynette rce(s) Supporting Document(s) 5 pH eCW1 ([facility]) pH neg Leukocyte eCW1 ([facility]) Leukocyte neg Spec gravity eCW1 ([facility]) Spec gravity neg Ketones eCW1 ([facility]) Ketones neg Glucose eCW1 ([facility]) Glucose neg Nitrate eCW1 ([facility]) Nitrate trace Protein eCW1 ([facility]) Protein neg Urobili eCW1 ([facility]) Urobili neg Bilirubin eCW1 ([facility]) Bilirubin neg Blood eCW1 ([facility]) Blood yes Internal QC Acceptable (Y/N) e CW1 ([facility]) Internal QC Acceptable (Y/N) Procedure Social History Code Duration Value Status Description Data Source(s ) Smoking 01/18/2021 12:00:00 AM EDT Never Smoker completed Never S moker eCW1 ([facility]) Smoking 12/15/2020 12:00:00 AM EDT Patient has never smoked co mpleted Patient has never smoked [facility] ([facility] Smoking 08/14/2020 12:00:00 AM EDT Never Smoker completed Never S moker eCW1 ([facility]) Smoking 05/31/2020 12:00:00 AM EST Never Smoker completed Never S moker eCW1 ([facility]) Smoking 05/31/2020 12:00:00 AM EST Never Smoker completed Never S moker eCW1 ([facility]) Smoking 05/11/2020 12:00:00 AM EST Never Smoker completed Never S moker eCW1 ([facility]) Smoking 05/11/2020 12:00:00 AM EST Never Smoker completed Never S moker eCW1 ([facility]) Alcohol intake 05/03/2020 12:00:00 AM EST No completed [facility] Smoking 05/03/2020 12:00:00 AM EST Never smoker completed Never s moker [facility] Smoking 04/26/2020 12:00:00 AM EST Never Smoker completed Never S moker eCW1 ([facility]) Smoking 04/26/2020 12:00:00 AM EST Never Smoker completed Never S moker eCW1 ([facility]) Smoking 04/26/2020 12:00:00 AM EST Never Smoker completed Never S moker eCW1 ([facility]) Smoking 03/29/2020 12:00:00 AM EST Never Smoker completed Never S moker eCW1 ([facility]) Smoking 03/29/2020 12:00:00 AM EST Never Smoker completed Never S moker eCW1 ([facility]) Smoking 03/29/2020 12:00:00 AM EST Never Smoker completed Never S moker eCW1 ([facility]) Smoking 03/29/2020 12:00:00 AM EST Never Smoker completed Never S moker eCW1 ([facility]) Smoking 03/29/2020 12:00:00 AM EST Never Smoker completed Never S moker eCW1 ([facility]) Smoking 02/18/2020 12:00:00 AM EST Never Smoker completed Never S moker eCW1 ([facility]) Smoking 02/18/2020 12:00:00 AM EST Never Smoker completed Never S moker eCW1 ([facility]) Smoking 02/18/2020 12:00:00 AM EST Never Smoker completed Never S moker eCW1 ([facility]) Smoking 02/18/2020 12:00:00 AM EST Never Smoker completed Never S moker eCW1 ([facility]) Smoking 02/18/2020 12:00:00 AM EST Never Smoker completed Never S moker eCW1 ([facility]) Smoking 01/19/2020 12:00:00 AM EDT Never Smoker completed Never S moker eCW1 ([facility]) Smoking 01/19/2020 12:00:00 AM EDT Never Smoker completed Never S moker eCW1 ([facility]) Smoking 01/19/2020 12:00:00 AM EDT Never Smoker completed Never S moker eCW1 ([facility]) Vital Signs ID Date Data Source UNK Name Value Range Interpretation Code Description Data Source(s) Body weight 235 [lb_av] 235 [lb_av] W1 ([facility]) Body height 62 [in_i] 62 [in_i] W1 ([facility]) Body mass index (BMI) [Ratio] 42.98 kg/m2 42.98 kg/m2 W1 ([facility]) Systolic blood pressure 122 mm[Hg] 122 mm[Hg] e CW1 ([facility]) Diastolic blood pressure 84 mm[Hg] 84 mm[Hg] eCW1 ([facility]) Systolic blood pressure 119 mm[Hg] 119 mm[Hg] [...] /min [facility] ( [facility] [place] body weight 105 [lb_av] 105 [lb_av] MEDEN [...] [lb_av] MEDEN T ([facility] [place] body weight 105 [lb_av] 105 [lb_av] MEDEN [...] [lb_av] MEDEN T ([facility] [place] body weight 105 [lb_av] 105 [lb_av] MED[facility] T ([facility] Body mass index (BMI) [Ratio] 43.2 kg/m2 43.2 k g/m2 [facility] ([facility] Systolic blood pressure 130 mm[Hg] 130 mm[Hg] M EDENT ([facility], ) Diastolic blood pressure 88 mm[Hg] 88 mm[Hg] [facility] ([facility]) Body height 65 [in_i] 65 [in_i] [facility] ([facility]) 5'5" Body weight 230.00 [lb_av] 230.00 [lb_av] MEDEN T ([facility]) Body mass index (BMI) [Ratio] 38.3 kg/m2 38.3 k g/m2 [facility] ([facility]) [place] body weight 125 [lb_av] 125 [lb_av] MEDEN T ([facility]) Body weight 104.328 kg 104.328 kg [facility] ([facility]) Body surface area Derived from formula 2.10 m2 2.10 m2 [facility]) Systolic blood pressure 112 mm[Hg] 112 mm[Hg] [...] 98 % [facility] ([facility] [place] body weight 105 [lb_av] 105 [lb_av] MEDEN [...] 98 % [facility] ([facility] [place] body weight 105 [lb_av] 105 [lb_av] MEDEN [...] [lb_av] MEDEN T ([facility] [place] body weight 105 [lb_av] 105 [lb_av] MEDEN [...] 98 % [facility] ([facility] [place] body weight 105 [lb_av] 105 [lb_av] MEDEN [...] 97 % [facility] ([facility] [place] body weight 105 [lb_av] 105 [lb_av] MEDEN T ([facility] Body mass index (BMI) [Ratio] 43.2 kg/m2 43.2 k g/m2 [facility] ([facility] Body weight 235 [lb_av] 235 [lb_av] eCW1 ([facility]) Body weight 106.59 kg 106.59 kg [facility] ([facility]) Body height 62 [in_i] 62 [in_i] eCW1 ([facility]) Body mass index (BMI) [Ratio] 42.98 kg/m2 42.98 kg/m2 eCW1 ([facility]) Systolic blood pressure 115 mm[Hg] 115 mm[Hg] e CW1 ([facility]) Diastolic blood pressure 74 mm[Hg] 74 mm[Hg] eCW1 ([facility]) Systolic blood pressure 139 mm[Hg] 139 mm[Hg] [...] 98 % [facility] ([facility] [place] body weight 105 [lb_av] 105 [lb_av] MEDEN T ([facility] Body mass index (BMI) [Ratio] 44.1 kg/m2 44.1 k g/m2 [facility] ([facility] Body weight [lb_av] eCW1 ([facility]) Body height 62 [in_i] 62 [in_i] eCW1 ([facility]) Body mass index (BMI) [Ratio] 43.71 kg/m2 43.71 kg/m2 W1 ([facility]) Heart rate 90 /min 90 /min eCW1 ([facility]) Respiratory rate 20 /min 20 /min eCW1 ([facility]) Body temperature 97.3 [degF] 97.3 [degF] eCW1 ( [facility]) Systolic blood pressure 132 mm[Hg] 132 mm[Hg] e CW1 ([facility]) Diastolic blood pressure 80 mm[Hg] 80 mm[Hg] eCW1 ([facility]) Systolic blood pressure 114 mm[Hg] 114 mm[Hg] [facility] Diastolic blood pressure 74 mm[Hg] 74 mm[Hg] [facility] Heart rate 89 /min 89 /min [facility] Body height 165.1 cm 165.1 cm [facility] Body weight 107.049 kg 107.049 kg [facility] Body mass index (BMI) [Ratio] 39.27 kg/m2 39.27 kg/m2 [facility] Oxygen saturation in Arterial blood by Pulse oximetry 98 % 98 % [facility] Body weight 239 [lb_av] 239 [lb_av] eCW1 ([facility]) Body height 62 [in_i] 62 [in_i] eCW1 ([facility]) Body mass index (BMI) [Ratio] 43.71 kg/m2 43.71 kg/m2 W1 ([facility]) Heart rate 106 /min 106 /min eCW1 ([facility]) Respiratory rate 20 /min 20 /min eCW1 ([facility]) Body temperature 97.7 [degF] 97.7 [degF] eCW1 ( [facility]) Systolic blood pressure 136 mm[Hg] 136 mm[Hg] e CW1 ([facility]) Diastolic blood pressure 86 mm[Hg] 86 mm[Hg] eCW1 ([facility]) Body weight 245 [lb_av] 245 [lb_av] eCW1 ([facility]) Body height 62 [in_i] 62 [in_i] eCW1 ([facility]) Body mass index (BMI) [Ratio] 44.81 kg/m2 44.81 kg/m2 [facility] ([facility]) Systolic blood pressure 130 mm[Hg] 130 mm[Hg] M EDENT ([facility], ) Diastolic blood pressure 80 mm[Hg] 80 mm[Hg] MED[facility] ([facility], ) Heart rate 70 /min 70 /min MED[facility] ([facility], ) Respiratory rate 14 /min 14 /min [facility] ( [facility], ) Body height 65 [in_i] 65 [in_i] MED[facility] ([facility], ) 5'5" Body weight 240.00 [lb_av] 240.00 [lb_av] MEDEN T ([facility], ) Body mass index (BMI) [Ratio] 39.9 kg/m2 39.9 k g/m2 MED[facility] ([facility], ) [place] body weight 125 [lb_av] 125 [lb_av] MEDEN T ([facility], ) Body weight 245 [lb_av] 245 [lb_av] eCW1 ([facility]) Body height 62 [in_i] 62 [in_i] eCW1 ([facility]) Body mass index (BMI) [Ratio] 44.81 kg/m2 44.81 kg/m2 eCW1 ([facility]) Heart rate 100 /min 100 /min eCW1 ([facility]) Respiratory rate 20 /min 20 /min eCW1 ([facility]) Body temperature 96.7 [degF] 96.7 [degF] eCW1 ( [facility]) Systolic blood pressure 134 mm[Hg] 134 mm[Hg] e CW1 ([facility]) Diastolic blood pressure 88 mm[Hg] 88 mm[Hg] eCW1 ([facility]ly [facility]) Body weight 244.6 [lb_av] 244.6 [lb_av] eCW1 (Counts include 234 beds at the [facility]) Body height 62 [in_i] 62 [in_i] eCW1 ([facility]) Body mass index (BMI) [Ratio] 44.73 kg/m2 44.73 kg/m2 eCW1 (Formerly [facility]) Heart rate 73 /min 73 /min eCW1 ([facility]) Respiratory rate 18 /min 18 /min eCW1 ([facility]) Body temperature 96.7 [degF] 96.7 [degF] eCW1 ( Formerly [facility]) Body weight 244.2 [lb_av] 244.2 [lb_av] eCW1 (Counts include 234 beds at the [facility]) Body height 62 [in_i] 62 [in_i] eCW1 ([facility]) Body mass index (BMI) [Ratio] 44.66 kg/m2 44.66 kg/m2 eCW1 (Formerly [facility]) Heart rate 98 /min 98 /min eCW1 ([facility]) Respiratory rate 18 /min 18 /min eCW1 ([facility]) Body temperature 98.3 [degF] 98.3 [degF] eCW1 ( [facility]) Systolic blood pressure 130 mm[Hg] 130 mm[Hg] e CW1 ([facility]ly [facility]) Diastolic blood pressure 80 mm[Hg] 80 mm[Hg] eCW1 ([facility]ly [facility]) Body weight 243 [lb_av] 243 [lb_av] eCW1 ([facility]) Body height 62 [in_i] 62 [in_i] eCW1 ([facility]) Body mass index (BMI) [Ratio] 44.44 kg/m2 44.44 kg/m2 eCW1 (Formerly [facility]) Heart rate 104 /min 104 /min eCW1 ([facility]) Respiratory rate 18 /min 18 /min eCW1 ([facility]) Body temperature 97.9 [degF] 97.9 [degF] eCW1 ( [facility]) Systolic blood pressure 142 mm[Hg] 142 mm[Hg] e CW1 ([facility]ly [facility]) Diastolic blood pressure 80 mm[Hg] 80 mm[Hg] eCW1 (Formerly [facility]) Patient Treatment Plan of Care Planned Activity Planned Date Details Description Data Source (s) doxycycline hyclate 100 MG Oral Capsule 05/01/2020 12:00:00 AM EST eCW1 (Formerly [facility]) topiramate 50 MG Oral Tablet 05/01/2020 12:00:00 AM EST [facility] doxycycline hyclate 100 MG Oral Capsule 05/01/2020 12:00:00 AM EST eCW1 (Formerly [facility]) Sumatriptan 100 MG Oral Tablet 04/22/2020 12:00:00 AM EST [facility] Oxycodone Hydrochloride 5 MG Oral Tablet 04/21/2020 12:00:00 AM EST eCW1 (Formerly [facility]) Alprazolam 0.5 MG Oral Tablet 04/04/2020 12:00:00 AM EST [facility] Metoprolol Tartrate 25 MG Oral Tablet 03/30/2020 12:00:00 AM EST [facility] Oxycodone Hydrochloride 5 MG Oral Tablet 03/27/2020 12:00:00 AM EST eCW1 (Formerly [facility]) Verapamil hydrochloride 80 MG Oral Tablet 03/27/2020 12:00:00 AM ES T [facility] Prednisone 20 MG Oral Tablet 03/13/2020 12:00:00 AM EST eCW1 (Formerly [facility]) Prednisone 20 MG Oral Tablet 03/13/2020 12:00:00 AM EST eCW1 ([facility]ly [facility]) Furosemide 20 MG Oral Tablet 03/11/2020 12:00:00 AM EST [facility] Oxycodone Hydrochloride 5 MG Oral Tablet 02/28/2020 12:00:00 AM EST eCW1 (Formerly [facility]) Oxycodone Hydrochloride 5 MG Oral Tablet 02/28/2020 12:00:00 AM EST eCW1 ([facility]ly [facility]) Oxycodone Hydrochloride 5 MG Oral Tablet 02/28/2020 12:00:00 AM EST eCW1 ([facility]ly [facility]) Oxycodone Hydrochloride 5 MG Oral Tablet 01/27/2020 12:00:00 AM EDT eCW1 ([facility]ly [facility]) Oxycodone Hydrochloride 5 MG Oral Tablet 01/27/2020 12:00:00 AM EDT eCW1 ([facility]ly [facility]) Oxycodone Hydrochloride 5 MG Oral Tablet 01/27/2020 12:00:00 AM EDT eCW1 ([facility]) Verapamil hydrochloride 80 MG Oral Tablet 01/19/2020 12:00:00 AM ED T eCW1 ([facility]) Verapamil hydrochloride 80 MG Oral Tablet 01/19/2020 12:00:00 AM ED T eCW1 ([facility]ly [facility]) Verapamil hydrochloride 80 MG Oral Tablet 01/19/2020 12:00:00 AM ED T eCW1 (Formerly [facility]) atorvastatin 40 MG Oral Tablet 12/08/2019 12:00:00 AM EDT [facility] Dicyclomine Hydrochloride 10 MG Oral Capsule [facility] Acetaminophen 325 MG / Hydrocodone Bitartrate 5 MG Oral Tablet [facility] atorvastatin 80 MG Oral Tablet [facility] meloxicam 15 MG Oral Tablet [facility]
[2021-01-30] MEDS ORDERED: VENTAER INH (16:17)
[2021-01-30 16:27] VITALS: BP 147/82
== END 2021-01-30 16:31 | disposition home or self-care (01) ==
LOC: M ED 13:44
DX: J45.901 Unspecified asthma with (acute) exacerbation (principal); J06.9 Acute upper respiratory infection, unspecified; I10 Essential (primary) hypertension; E11.9 Type 2 diabetes mellitus without complications; G43.909 Migraine, unspecified, not intractable, without status migrainosus; K21.9 Gastro-esophageal reflux disease without esophagitis; Z79.899 Other long term (current) drug therapy; Z88.8 Allergy status to other drugs, medicaments and biological substances

== ENCOUNTER → 2021-02-22 | Outpatient (REF) | payer OTHER, MEDICAID ==
[~2021-02-22] MED LIST changes: +VENTAER INH
[2021-02-22 17:46] LABS: APPEARANCE, URINE HAZY (CLEAR); BACTERIA, URINE AUTO NEGATIVE (NEGATIVE); BILIRUBIN, URINE AUTO NEGATIVE (NEGATIVE); BLOOD, URINE BLOOD NEGATIVE (NEGATIVE); COLOR, URINE YELLOW (YELLOW); GLUCOSE, URINE (UA) AUTO NEGATIVE (NEGATIVE); KETONE, URINE AUTO NEGATIVE (NEGATIVE); LEUKOCYTE ESTERASE, URINE AUTO NEGATIVE (NEGATIVE); NITRITE, URINE AUTO NEGATIVE (NEGATIVE); PROTEIN, URINE AUTO NEGATIVE (NEGATIVE); RBC, URINE AUTO 0 /HPF (0-3); SQUAMOUS EPITHELIAL CELL UR AU 6 /HPF (0-6); UROBILINOGEN, URINE AUTO 0.2 mg/dL (0.0-2.0); WBC, URINE AUTO 0 /HPF (0-3)
== END ==
LOC: M SMT 16:55
PROVIDERS: ATTEND Nurse Practitioner Women's Health
DX: N39.41 Urge incontinence (principal)
CPT/HCPCS: 51798; 81001; 87086; G0463

== ENCOUNTER 2021-03-18 13:30 | Emergency (ER) | payer OTHER, MEDICAID ==
[~2021-03-18] VITALS: Ht 162.6 cm; Wt 103.2 kg
[2021-03-18 13:37] VITALS: BP 122/63
--- OUTSIDE RECORDS SUMMARY | 2021-03-18 13:37 | CCD ---
Author Author [facility] Organization [facility] Address Unknown Phone Unavailable Care Team Providers Care Supervisor [employer] Name Role Phone [place] Rock Unavailable PROBLEMS Type Condition ICD9-CM Code [id number] Code Onset Dates Condition S tatus W/U Status Risk SNOMED Code Notes Problem Asthma, extrinsic, unspecified asthma severity, uncomp licated J45.909 Active confirmed 363072611 Problem Gastro-esophageal reflux disease without esophagitis K21.9 Active confirmed 658241236 Problem Type 2 diabetes mellitus without complications E11 .9 Active confirmed 868507211 Problem Obstructive sleep apnea (adult) (pediatric) G47.33 Active confirmed 73213990 Problem Essential (primary) hypertension I10 Active conf irmed 79234753 Problem Facet arthropathy, 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 Active confirme d 140491292 Problem Myalgia, other site M79.18 Active confirmed 05570708 Problem Morbid (severe) obesity due to excess calories E66 .01 Active confirmed 93169049136687 Problem Duodenal ulcer disease K26.9 Active confirmed 08181066 Problem Other chronic pain G89.29 Active confirmed 8 1595203 Problem Irritable bowel syndrome with both constipation and diarrh ea K58.2 Active confirmed 72562047 Problem Low back pain M54.5 Active confirmed 292102 009 Problem Irritable bowel syndrome with diarrhea K58.0 A ctive confirmed 108192289 Problem Primary osteoarthritis of right knee M17.11 Act waqas confirmed 071787180143499 Problem Cervicalgia M54.2 Active confirmed 06559527 70202 Problem Facet arthropathy, cervical M47.812 Active confirme d 065348464 Problem Pain in thoracic spine M54.6 Active confirmed 024251230 Problem Migraine without status migr ainosus, not intractable, unspecified migraine type G43.909 Active confirmed 89037363 Problem Early menopause E28.319 Active confirmed 373 782794 Problem Surgical menopause, symptomatic E89.41 Active confi rmed 058570382 Problem Urge incontinence N39.41 Active confirmed 87 947161 Problem Other hyperlipidemia E78.4 Active confirmed 56491493 Problem Severe episode of recurrent major depressive disorder, without psychotic features F33.2 Active confirmed 65886335 Problem New daily persistent headache G44.52 Active co nfirmed 589005182248627 Problem Acquired absence of ovaries, bilateral Z90.722 A ctive confirmed 560120726 Problem Acquired absence of both cervix and uterus Z90.710 Active confirmed 242514438 Problem Vaginal bleeding N93.9 Active confirmed 289 012582 ALLERGIES Allergen (clinical drug ingredient) Drug/Non Drug Allergy do cumented on EMR Reaction Allergy Type Onset Date Status Cat dander Cat Dander Eyes water Drug Allergy Active amitriptyline Amitriptyline HCl(ND Code:[address]-00) Hives ug Allergy Active acetaminophen / oxycodone Percocet(ND Code:[address]-95) Hives Drug Allergy Active ENCOUNTERS from 1973 to 2021-02-26 Encounter Location Date Provider Diagnosis [facility] [address] [phone] [place] [address] 18 Feb, 2021 [place] Recore Urge incontinence N39.41 IMMUNIZATIONS Vaccine Route Administration Date Status TDAP [...] REFERRAL No Information VITAL SIGNS Weight 233 lbs Feb, Height 62 in Feb, BMI 42.61 kg/m2 Feb, Heart Rate 80 /min Feb, Respiratory Rate 20 /min Feb, Temperature 96.8 degrees Fahrenheit Feb, Oximetry 98 Feb, Blood pressure systolic 126 mm Hg Feb, Blood pressure diastolic 78 mm Hg Feb, MEDICATIONS Medication SIG (Take, Route, Frequency, Duration) Notes Start Da te End Date Status Singulair 10 mg 1 tablet in the evening Orally Once a day for 90 Active Topiramate 50 MG 2 tablet Orally Once a day Active Albuterol Sulfate (2.5 MG/3ML) 0.083% 3 ml Inhalation DX:J45.909 Three times a day as needed for 30 days Active Verapamil HCl 80 MG 1 tablet Orally Three times a day for 30 day(s) Active Protonix 40 MG 1 tablet Orally twice daily for 90 Active Gabapentin 300 MG 1 capsule Orally three times a day for 30 days Nov, Active Oxybutynin Chloride ER 10 MG 1 tablet Orally Once a day for 30 d ay(s) Feb, Active Atorvastatin Calcium 40 MG 1 tablet Orally Once a day for 90 Active DULoxetine HCl 60 MG 1 capsule Orally Once a day for 30 days Sep, Active Robaxin-750 750 MG 1 tablet Orally Q8H PRN Mar, Active Acetaminophen 500 MG 2 caps as needed Orally every 6 hrs Active ProAir HFA 108 (90 Base) MCG/ACT inhale two puffs by m outh every 4 hours as needed for 30 days Active Furosemide 20 MG 1 tablet Orally Once a day for 90 day(s) Oct, Active Nebulizer Compressor - as directed _Dx:J45.909 _ for 30 Days Mar, Active ZyrTEC Allergy 10 mg 1 tablet as needed Orally Once a day for 90 Active Doxycycline Hyclate 100 MG 1 capsule Orally bid for 7 day(s) Apr, Not-Taking IBU-200 200 MG 2 tabs with food or milk as needed Orally Three time s a day Not-Taking Nebulizers - as directed _Dx J45.909 _ for 30 Days Mar, Active predniSONE 20 MG 2 tablets Orally Once a day for 2 days Mar, Not-Taking One Touch Ultra Test Strips 1 as directed intradermall y daily dx: E11.9 for 50 days Jun, Active oxyCODONE HCl 5 MG 1 tablet as needed MDD 2 Orally every 6 hrs f or 30 Days Apr, Active Blood Glucose System Binu - meter Dx: E11.9 Daily for 30 Days Jun, Active Metoprolol Tartrate 25 MG 1 tablet with food Orally Twice a day for 30 day(s) Mar, Active Lancets 1 as directed intradermally daily dx:E11.9 for 50 days Jun, Active SUMAtriptan Succinate 100 MG 1 tablet at least 2 hours between doses as needed Orally Twice a day Active PROCEDURES from 1973 to 2021-02-26 Procedure Date Ordered Result Body Site uro PVR (Post Voiding Residual) Bladder Scan 2021-02-22 N/A RESULTS No Results REASON FOR VISIT urge incontinence MEDICAL (GENERAL) HISTORY Type Description Date Medical [...] History perimenopause Medical History 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 - Nuclear stress test [...] Treatment Notes Treatm ent Clinical Notes Feb, Urge incontinence (ICD-10 - N39.41) PLAN OF TREATMENT Medication Medication Name Sig Start Date Stop Date Oxybutynin Chloride ER 10 MG 1 tablet Orally Once a day for 30 day(s) Feb, Future Test Test Name Order Date URINE CULTURE [id number] UA URINALYSIS [id number] Next Appt Details 2 Months Reason: Provider Name:Katt Escobar, 2021-03-20 03:00:00 PM, [address], , [place], [address], Provider Name:Tho Shaffer, 2021-04-11 10:00:00 AM, [address], , [place], [address], Provider Name:Mad[place] Rock, 2021-04-07 3 09:30:00 AM, [address], , [place], [address], Insurance Providers Payer Name Payer Address Payer Phone Insured Name Patient Relati onship to Insured Coverage Start Date Coverage End Date [employer] [address] [address] [facility] [address] SEJAL SCHERER self MEDICAID [employer] [address] [facility] [address] SEJAL SCHERER self
--- OUTSIDE RECORDS SUMMARY | 2021-03-18 13:37 | CCD | Continuity of Care Document ---
Author Author Renea LEUNG M.D. Organization Unknown Address [address] [place] [address] Phone [phone] Care Team Providers Care Latex Caster Name Role Phone Pat Alonzo AUTM Gladys Franz M.D. AUTM [phone] Problems Active Problems Provider Date Chronic intractable migraine without aura Elinor Leung M.D. Onset: 04/03/2020 Chronic tension-type headache Elinor Leung M.D. Onset: Neck pain Elinor Leung M.D. Onset: 04/03/2020 Spondylolysis of cervical spine Elinor Leung M.D. Onset: 1 06/04/2019 Social History Type Date Description Comments Sex Unknown Tobacco Use Start: Unknown Patient has never smoked Allergies and adverse reactions Description No Known Drug Allergies Medications Active Medications SIG Qnty Indications Ordering Provide r Date Topiramate 200mg Tablets 1 by mouth qhs. 90estrella Leung M.D. 05/25/2020 Alprazolam 0.5mg Tablets 1 tab by mouth [...] lb BMI (Body Mass Index) 39.9 kg/m2 [place] Body Weight 125 lb Results Description No Information Available Procedures Date Code Description Status 02/23/2021 07176 Office/Outpatient Established Lo w MDM 20-29 Min Completed Medical Devices Description No Information Available Encounters Type Date Location Provider Dx Diagnosis Office Visit 02/23/2021 8:30a [facility] Odette Ordonez G43.719 Chronic migraine w/o aura, intractable, w/o stat migr G44.221 Chronic tension-type headach e, intractable M54.2 Cervicalgia M43.02 Spondylolysis, cervical maria e on Assessments Date Code Description Provider 02/23/2021 G43.719 Chronic migraine wit hout aura, intractable, without status migrainosus Elinor Leung M.D. 02/23/2021 G44.221 Chronic tension-type headache, i ntractable Elinor Leung M.D. 02/23/2021 M54.2 Cervicalgia Elinor Leung M.D. 02/23/2021 M43.02 Spondylolysis, cervical region M britney Leung M.D. Plan of Treatment Future Appointment(s):* 07/27/2021 9:30 am - Elinor Leung M.D. at [facility] Functional Status Description No Information Available Mental Status Description No Information Available Referrals Description No Information Available
--- OUTSIDE RECORDS SUMMARY | 2021-03-18 13:37 | CCD | Continuity of Care Document ---
Author Author Renea CAMARA [facility] Organization Unknown Address [address] [place] [address] Phone [phone] Care Team Providers Care [facility] Intern Name Role Phone Gladys Franz MD AUTM [phone] [facility] AUTM Problems Active Problems [...] Use Never Used Drugs Smoking Status Reviewed: 02/19/21 Patient has never smoked Exercise Type/Frequency Exercises regularly walk s Tattoo/Piercing Pierced ears Seat Belt/Car Seat Always uses seat belt Smoke Alarms Yes Smoke Alarms Carbon Monoxide Detector: Yes Allergies and adverse reactions Active Allergies Criticality Reaction | Severity Comments Date NKDA Unable to assess criticality 05/17/2020 Cats Unable to assess criticality 05/17/2020 Dust Unable to assess criticality 05/17/2020 Hay Fever Unable to assess criticality 05/17/2020 Medications Active Medications SIG Qnty Indications Ordering Provide r Date Doxycycline Hyclate 100mg Tablets DR 1 tab by mouth twice a day for 10 days 20tabs Eden Camara FNP 02/19/2021 Fluticasone Propionate/Salmeterol Diskus 250-50mcg/Dose Aerosol inhale one puff by mouth twice a day 60units Gladys Franz M.D. 11/15/2020 Pantoprazole Sodium 40mg Tablets D R take one tablet by mouth twice a day 180tabs Gladys Franz M.D. Topiramate 200mg Tablets o ne tab at hs Unknown Verapamil HCL 80mg Tablets 1 by mouth three times a day 270tabs Unknown Sumatriptan Succinate 100mg Tablet s one tab by mouth at onset of headache, repeat once in one hour if needed [facility] Acetaminophen 500mg Tablets 1-2 tablets three times a day as needed Unknown Oxycodone HCL 5mg Capsules 1 cap by mouth every 6 hours as needed for ankle pain. avoid daily use. 30caps Eden aCmara, [employer] Metoprolol Tartrate 25mg Tablets take one tablet by mouth twice a day [facility] Robaxin-750 750mg Tablets take one by mouth every 8 hours as needed [facility] Ce nter Duloxetine HCL 60mg Caps DR Part 1 by mouth every day 90caps Gladys Franz M.D. Gabapentin 300mg Capsules 1 [...] by mouth every day for cholesterol 90tabs Gladys Mason ms, M.D. Zyrtec Allergy 10mg Capsules 1 by mouth every day 90caps Unknown Montelukast Sodium 10mg Tablets 1 by mouth every day 90tabs Gladys Franz M.D. 000 History Medications Azithromycin 250mg Tablets 2 pills by mouth today and one by mouth every day for 4 days 6tabs J20.9 Gladys Franz M.D. 02/05/2021 - 02/10/2021 Prednisone 10mg Tablets 4 po q d xs 3 d then 3 q d xs 3 d then 2 q d xs 3 d then 1 qd for 3 days then 1/2 qd for 4 days 32tabs J20.9 Gladys Franz M.D. 02/05/2021 - Tobramycin 0.3% Solution 2 drops both eyes three times a day for 5 days 1units H10.33 Gladys Franz M.D. 12/12/2020 - 12/17/2020 Ciprofloxacin HCL 500mg Tablets 1 by mouth twice a day 14tabs R30.0 Gladys Franz M.D. 021 - 09/01/2020 Immunizations CPT Code Status Date Vaccine Lot # [id number] Given 08/15/2020 Moderna Sars-(Co vid-19) vaccine, mRNA, LNP-S, PF, 100 mcg/ 0.5 mL [id number] Given 07/18/2020 Moderna Sars-(Co vid-19) vaccine, mRNA, LNP-S, PF, 100 mcg/ 0.5 mL [id number] Given 05/03/2020 Influenza Virus, quadravalent, age 6 Mo and up,Preservative free Vital Signs Date Vital Result Comment 02/19/2021 4:40pm BP Systolic 138 mmHg BP Diastolic 98 mmHg BP Systolic Recheck 132 mmHg BP Diastolic Recheck 87 mmHg Heart Rate 78 /min Body Temperature 97.3 F Respiratory Rate 20 /min Height 61.50 inches 5'1.50" Weight 233.00 lb O2 % BldC Oximetry 99 % Peak Expiratory Flow Rate 338 Estimated Peak Flow Rate [place] Body Weight 105 lb BMI (Body Mass Index) 43.3 kg/m2 12/15/2020 12:19pm BP Systolic 132 mmHg BP Diastolic 93 mmHg BP Systolic Recheck 119 mmHg BP Diastolic Recheck 75 mmHg Heart Rate 78 /min Body Temperature 97.5 F Respiratory Rate 16 /min Height 61.50 inches 5'1.50" Weight 236.50 lb O2 % BldC Oximetry 98 % Peak Expiratory Flow Rate 338 Estimated Peak Flow Rate [place] Body Weight 105 lb BMI (Body Mass Index) 44.0 kg/m2 Results Test Acquired Date Facility Test Result H/L Range Note Laboratory test finding 02/05/2021 [facility] [address] [place] [address] [phone] [facility] Covid19 negative Influenza A/B RSV Covid Amp 01/30/2021 [place] [address] [phone] Influenza A Amplification NEGATIVE Normal Negati ve 1 Influenza B Amplification NEGATIVE Normal Negative 2 RSV Amplification NEGATIVE Normal Negative 3 Sars Covid-19 Amplification NEGATIVE Normal Negative 4 Coronavirus 2019 [facility]geal [facility] [place] [id number] [phone] Coronavirus 2019 Nasopharygeal ASSAY INFORMATIO <SEE N OTE> 5 Clostridium Difficle By PCR 10/12/2020 [place] [address] [phone] Clostridium Difficile PCR TNP Normal Negati ve Nap1 027 For Cdiff PCR TNP Normal Negative 6 Laboratory test finding 10/12/2020 [place] [address] [phone] Stool Lactoferrin-polys by Ica NEGATIVE Normal 7 Fat Fecal Qualitative 10/12/2020 Patient Service nter [place] [id number] [phone] Fats Neutral Normal Normal . 8 Fats Total Normal Normal . 9 Laboratory test finding 10/12/2020 [place] [address] [phone] Pancreatic Elastase Stool >500 Normal >200 10 Laboratory test finding 10/12/2020 [place] [address] [phone] Tissue Transglutaminase IgA <2 U/mL Normal 0-3 11 Iga Subclasses 10/12/2020 [place] [address] [phone] IgA Serum (part of Subclasses) 393 mg/dL High 8 7-352 Igasub2 316.7 mg/dL High 73.2-301.2 Igasub3 48.5 mg/dL Normal 13.4-97.9 CBC With Differential 10/12/2020 [place] [address] [phone] White Blood Count 5.7 10 Normal 4.0-10.0 [...] 36.0-66.0 Lymph % 32.3 % Normal 24.0-44.0 [place] % 8.8 % High 2.0-8.0 Eos % 3.0 % Normal 0.0-3.0 Baso % 0.5 % Normal 0.0-1.0 Immature Granulocyte % 0.2 % Normal 0-3.0 Nucleated Red Blood Cell % 0.0 % Normal 0-0 Neutrophils # 3.1 10 Normal 1.5-8.5 Lymph # 1.8 10 Normal 1.5-5.0 [place] # 0.5 10 Normal 0.0-0.8 Eos # 0.2 10 Normal 0.0-0.5 Baso # 0.0 10 Normal 0.0-0.2 Laboratory test finding 10/12/2020 [place] [address] [phone] Erythrocyte Sedimentation Rate 23 mm/hr High 0 -20 Liver Profile 10/12/2020 [place] [address] [phone] Ast/Sgot 32 U/L Normal 7-37 Alt/SGPT 101 U/L High 12-78 Alkaline Phosphatase 123 U/L High 45-117 Bilirubin,Total 0.3 mg/dL Normal 0.2-1.0 Bilirubin,Direct < 0.1 mg/dL Normal 0.0-0.2 Total Protein 7.1 GM/DL Normal 6.4-8.2 Albumin 3.2 GM/DL Normal 3.2-5.2 Albumin/Globulin Ratio 0.8 Low 1.2-2.2 Laboratory test finding 10/12/2020 [facility] [place] [address] [phone] C Reactive Protein Quantitativ 0.66 mg/dL High 0 .00-0.30 Laboratory test finding 08/25/2020 [facility] [phone] Urine Culture FULL REPORT IN L <SEE NOTE> Normal 12 1 Negative results do not prec lude influenza or RSV virus infection and should not be used as the sole basis for treatment or other patient management decisions. 2 Negative results do not prec lude influenza or RSV virus infection and should not be used as the sole basis for treatment or other patient management decisions. 3 Negative results do not prec lude influenza or RSV virus infection and should not be used as the sole basis for treatment or other patient management decisions. 4 A false negative result may occur if a specimen is improperly collected, transported or handled. False negative results may also occur if inadequate numbers of organisms are present in the specimen. As with any molecular test, mutations within the target regions of X[facility] [employer] SARS-CoV-2 could affect primer and/or probe binding resulting in failure to detect the presence of virus. This test cannot rule out diseases caused by other bacterial or viral pathogens. DISCLAIMER: Testing was performed using the [facility] SARS-CoV-2 test. This test was developed and its performance characteristics determined by [facility]. This test has not been FDA cleared or approved. This test has been authorized by FDA under an Emergency Use Authorization (EUA). This test is only authorized for the duration of time the declaration that circumstances exist justifying the authorization of the emergency use of in vitro diagnostic tests for detection of SARS-CoV-2 virus and/or diagnosis of COVID-19 infection under section 564(b)(1) of the Act, 21 U.S.C. 360bbb-3(b)(1), unless the authorization is terminated or revoked sooner. 5 ASSAY INFORMATION: Real Time RT-PCR NOTE: The COVID-19 assay has been cleared by the U.S. Food and Drug Administration under the Emergency Use Authorization (EUA). [facility] and [facility] are designated as high complexity laboratories by the Clinical Laboratory Improvement Amendments of 1988(CLIA) and are qualified to perform this test. Not Detected 6 Clostridium difficile testin g will only [...] Please contact Infectious Disease Specialist with questions. 7 8 Normal (<60 Droplets/HPF) 9 Normal (<100 Droplets/HPF) 10 Result Units: ug Elast./g Severe Pancreatic Insufficiency: <100 Moderate Pancreatic Insufficiency: 100 - 200 Normal: >200 Performed at: [facility] [id number] Supervisor Beam Department: Yarely Torres MD, Phone: [phone] Performed at: [email or web address] [id number] Supervisor Beam Department: Thor Escobar MD, Phone: [phone] 11 Negative 0 - 3 Weak Positive 4 - 10 Positive >10 . Tissue Transglutaminase (tTG) has been identified as the endomysial antigen. Studies have demonstr- ated that endomysial IgA antibodies have over 99% specificity for gluten sensitive enteropathy. Performed at: [facility] [id number] Supervisor Beam Department: Yarely Torres MD, Phone: [phone] Performed at: [email or web address] [id number] Supervisor Beam Department: Thor Escobar MD, Phone: [phone] 12 FULL REPORT IN LAB NOTES (eC W and [facility]). SPECIMEN APPEARS CONTAMINATED Procedures Date Code Description Status 02/19/2021 62366 Office/Outpatient Established Lo w MDM 20-29 Min Completed 02/05/2021 43114 Office/Outpatient Established Mo d MDM 30-39 Min Completed 12/15/2020 87981 Office/Outpatient Established Lo w MDM 20-29 Min Completed 12/12/2020 32357 Office/Outpatient Established Lo w MDM 20-29 Min Completed 11/15/2020 66175 Office/Outpatient Established Mo d MDM 30-39 Min Completed 08/29/2020 77210 Office/Outpatient Established SF MDM 10-19 Min Completed 08/25/2020 82948 Office/Outpatient Established Mo d MDM 30-39 Min Completed Medical Devices Description No Information Available Encounters Type Date Location Provider Dx Diagnosis Office Visit 02/19/2021 4:30p Main Office Eden Camara FNP J06.9 Acute upper respiratory infection, unspecified Office Visit 02/05/2021 8:00a Main Office Gladys Franz M.D. J 20.9 Acute bronchitis, unspecified J06.9 Acute upper respiratory infe ction, unspecified Office Visit 12/15/2020 12:15p Main Office Eden [...] Office Gladys Franz M.D. R 30.0 Dysuria Assessments Date Code Description Provider 02/19/2021 J06.9 Acute upper respiratory infectio n, unspecified Eden Camara FNP 02/05/2021 J20.9 Acute bronchitis, unspecified Wi lliams, Gladys A., M.D. 02/05/2021 J06.9 Acute upper respiratory infectio n, unspecified Gladys Franz M.D. 12/15/2020 M19.071 Primary osteoarthritis, right an kle and foot Eden Camara, [employer] 12/15/2020 J45.40 Moderate persistent asthma, unco mplicated Eden Camara FNP 12/12/2020 H10.33 Unspecified acute conjunctivitis , bilateral [...] M.D. 08/25/2020 R30.0 Dysuria Gladys Franz M.D. Plan of Treatment Future Appointment(s):* 03/20/2021 1:15 pm - Eden Camara FNP at Main Office 02/19/2021 - Eden Camara FNP* J06.9 Acute upper respiratory infection, unspecified * All * New Medication:* Doxycycline Hyclate 100 mg - 1 tab by mouth twice a day for 10 days Functional Status Functional Condition Comment Date Status Bifocal glasses Active Independent with all ADL's Activ e Complete lower and upper and lower dentures Active Independent with all IADL's Acti ve Mental Status Mental Condition Comment Date Status Impaired Memory Active Trouble with reading, poor speller Active Referrals Description No Information Available
--- OUTSIDE RECORDS SUMMARY | 2021-03-18 13:37 | CCD | Continuity of Care Document ---
Author Author Renea LEUNG M.D. Organization Unknown Address [address] [place] [address] Phone [phone] Care Team Providers Care Interior Design Program Chair Name Role Phone Pat Alonzo AUTM [phone] Gladys Franz M.D. AUTM [phone] Problems Active Problems Provider Date Chronic intractable [...] lb BMI (Body Mass Index) 39.9 kg/m2 [place] Body Weight 125 lb Results Description No Information Available Procedures Date Code Description Status 02/23/2021 86168 Office/Outpatient Established Lo w MDM 20-29 Min Completed Medical Devices Description No Information Available Encounters Type Date Location Provider Dx Diagnosis Office Visit 02/23/2021 8:30a [facility] Odette Ordonez G43.719 Chronic migraine w/o [...] 9:30 am - Elinor Leung M.D. at [facility] Functional Status Description No Information Available Mental Status Description No Information Available Referrals Description No Information Available
--- OUTSIDE RECORDS SUMMARY | 2021-03-18 13:38 | CCD | Continuity of Care Document ---
Author Author Renea SALINAS M.D. Organization Unknown Address [address] [place] [address] Phone [phone] Care Team Providers Care Kennel Technician Name Role Phone Gladys Salinas MD AUTM [phone] [facility] AUTM [phone] Problems Active Problems Provider Date Mixed hyperlipidemia [...] SIG Qnty Indications Ordering Provide r Date Prednisone 10mg Tablets 4 po q d xs 3 d then 3 q d xs 3 d then 2 q d xs 3 d then 1 qd for 3 days then 1/2 qd for 4 days 32tabs J20.9 Gladys Sailnas M.D. 02/05/2021 Azithromycin 250mg Tablets 2 pills by mouth today and one by mouth every day for 4 days 6tabs J20.9 Gladys Salinas M.D. 02/05/2021 Fluticasone Propionate/Salmeterol Diskus 250-50mcg/Dose Aerosol inhale one [...] repeat once in one hour if needed [facility] Acetaminophen 500mg Tablets 1-2 tablets three times a day as needed Unknown Oxycodone HCL 5mg Capsules 1 cap by mouth every 6 hours as needed for ankle pain. avoid daily use. 30caps Edne Camara, [employer] Metoprolol Tartrate 25mg Tablets take one tablet by mouth twice a day [facility] Pantoprazole Sodium 40mg Tablets [...] mouth every day 90tabs Unknown History Medications Tobramycin 0.3% Solution 2 [...] CPT Code Status Date Vaccine Lot # [id number] Given 08/15/2020 Moderna Sars-(Co vid-19) vaccine, mRNA, LNP-S, PF, 100 mcg/ 0.5 mL 45988 Given 07/18/2020 Moderna Sars-(Co vid-19) vaccine, mRNA, LNP-S, PF, 100 mcg/ 0.5 mL [id number] Given 05/03/2020 Influenza Virus, quadravalent, age 6 [...] Flow Rate 338 Estimated Peak Flow Rate [place] Body Weight 105 lb BMI (Body Mass Index) 44.0 kg/m2 12/12/2020 1:56pm BP Systolic 123 mmHg BP Diastolic 80 mmHg Heart Rate 76 /min Body Temperature 97.3 F Respiratory Rate 16 /min Height 61.50 inches 5'1.50" Weight 236.00 lb Peak Expiratory Flow Rate 338 Estimated Peak Flow Rate [place] Body Weight 105 lb BMI (Body Mass Index) 43.9 kg/m2 Results Test Acquired Date Facility Test Result H/L Range Note Laboratory test finding 02/05/2021 [facility] [address] [place] [address] [phone] [facility] Covid19 negative Influenza A/B RSV Covid Amp 01/30/2021 [place] [address] [phone] Influenza A Amplification NEGATIVE Normal Negati ve 1 Influenza B Amplification NEGATIVE Normal Negative 2 RSV Amplification NEGATIVE Normal Negative 3 Sars Covid-19 Amplification NEGATIVE Normal Negative 4 Coronavirus 2019 Nasopharygeal 01/13/2021 [facility] [place] [facility] [place] [address] [phone] Coronavirus 2019 Nasopharygeal ASSAY INFORMATIO <SEE N OTE> 5 Clostridium Difficle By PCR 10/12/2020 [place] [address] [phone] Clostridium Difficile PCR TNP Normal Negati ve Nap1 027 For Cdiff PCR TNP Normal Negative 6 Laboratory test finding 10/12/2020 [place] [address] [phone] Stool Lactoferrin-polys by Ica NEGATIVE Normal 7 Fat Fecal Qualitative 10/12/[address] [place] [address] [phone] Fats Neutral Normal Normal . 8 Fats Total Normal Normal . 9 Laboratory test finding 10/12/2020 [place] [address] [phone] Pancreatic Elastase Stool >500 Normal >200 10 Laboratory test finding 10/12/2020 [place] [address] [phone] Tissue Transglutaminase IgA <2 U/mL Normal 0-3 11 Iga Subclasses 10/12/2020 [place] [address] [phone] IgA Serum (part of Subclasses) 393 mg/dL High 8 7-352 Igasub2 316.7 mg/dL High 73.2-301.2 Igasub3 48.5 mg/dL Normal 13.4-97.9 CBC With Differential 10/12/2020 [place] [address] [phone] White Blood Count 5.7 10 Normal 4.0-10.0 [...] 36.0-66.0 Lymph % 32.3 % Normal 24.0-44.0 [place] % 8.8 % High 2.0-8.0 Eos % 3.0 % Normal 0.0-3.0 Baso % 0.5 % Normal 0.0-1.0 Immature Granulocyte % 0.2 % Normal 0-3.0 Nucleated Red Blood Cell % 0.0 % Normal 0-0 Neutrophils # 3.1 10 Normal 1.5-8.5 Lymph # 1.8 10 Normal 1.5-5.0 [place] # 0.5 10 Normal 0.0-0.8 Eos # 0.2 10 Normal 0.0-0.5 Baso # 0.0 10 Normal 0.0-0.2 Laboratory test finding 10/12/2020 [place] [address] [phone] Erythrocyte Sedimentation Rate 23 mm/hr High 0 -20 Liver Profile 10/12/2020 Patient Service [facility] [place] [address] [phone] Ast/Sgot 32 U/L Normal 7-37 Alt/SGPT 101 U/L High 12-78 Alkaline Phosphatase 123 U/L High 45-117 Bilirubin,Total 0.3 mg/dL Normal 0.2-1.0 Bilirubin,Direct < 0.1 mg/dL Normal 0.0-0.2 Total Protein 7.1 GM/DL Normal 6.4-8.2 Albumin 3.2 GM/DL Normal 3.2-5.2 Albumin/Globulin Ratio 0.8 Low 1.2-2.2 Laboratory test finding 10/12/2020 [place] [address] [phone] C Reactive Protein Quantitativ 0.66 mg/dL High 0 .00-0.30 Laboratory test finding 08/25/2020 [facility] [phone] Urine Culture FULL REPORT IN L <SEE NOTE> Normal 12 Ua W/ Reflex To Culture 08/20/2020 [place] [address] [phone] Appearance, Urine RFX CLOUDY High Clear Color, Urine RFX RADHA Normal Yellow PH,Urine RFX 5.0 units Normal 5.0-9.0 Specific [place] Ur Auto RFX 1.029 Normal 1.002-1.035 Protein, [...] 0-1 Reflex Urine Culture 08/20/2020 [place] [address] [phone] Reflex Urine Culture FULL REPORT IN L <SEE NOTE> Norm al 13 1 Negative results do not prec lude [...] pathogens. DISCLAIMER: Testing was performed using the [facility] SARS-CoV-2 test. This test was developed and its performance characteristics determined by [facility]. This test has not been FDA cleared [...] Administration under the Emergency Use Authorization (EUA). [facility] and [facility] are designated as high complexity laboratories by [...] 100 - 200 Normal: >200 Performed at: [facility] [id number] Bmx Rider: Yarely Torres MD, Phone: [phone] Performed at: [address] [id number] Bmx Rider: Thor Escobar MD, Phone: [phone] 11 Negative 0 - 3 Weak Positive 4 - 10 Positive >10 . Tissue Transglutaminase (tTG) has been identified as the endomysial antigen. Studies have demonstr- ated that endomysial IgA antibodies have over 99% specificity for gluten sensitive enteropathy. Performed at: [address] [id number] Bmx Rider: Yarely Torres MD, Phone: [phone] Performed at: [address] [id number] Bmx Rider: Thor Escobar MD, Phone: [phone] 12 FULL REPORT IN LAB NOTES ([facility]C [facility] and [facility]). SPECIMEN APPEARS CONTAMINATED 13 FULL REPORT IN LAB NOTES (eC W and [facility]). SPECIMEN APPEARS CONTAMINATED Procedures Date Code Description Status 02/05/2021 83580 Office/Outpatient Established Mo d MDM 30-39 Min Completed 12/15/2020 52320 Office/Outpatient Established Lo w MDM 20-29 Min Completed 12/12/2020 15461 Office/Outpatient Established Lo w MDM 20-29 Min Completed 11/15/2020 58588 Office/Outpatient Established Mo d MDM 30-39 Min Completed 08/29/2020 38446 Office/Outpatient Established SF MDM 10-19 Min Completed 08/25/2020 33419 Office/Outpatient Established Mo d MDM 30-39 Min Completed 08/15/2020 88462 Office/Outpatient Established Mo d MDM 30-39 Min Completed Medical Devices Description No Information Available Encounters Type Date Location Provider Dx Diagnosis Office Visit 02/05/2021 8:00a Main Office Gladys Salinas M.D. J 20.9 Acute bronchitis, unspecified J06.9 [...] and foot Assessments Date Code Description Provider 02/05/2021 J20.9 Acute bronchitis, unspecified Wi Gladys jimenes M.D. 02/05/2021 J06.9 Acute upper respiratory infectio n, unspecified Gladys Salinas M.D. 12/15/2020 M19.071 Primary osteoarthritis, right an kle and foot Eden Camara, [facility] 12/15/2020 J45.40 Moderate persistent asthma, unco mplicated Eden Camara, [facility] 12/12/2020 H10.33 Unspecified acute conjunctivitis , bilateral [...] - Eden Camara FNP at Main Office 02/05/2021 - Gladys Salinas M.D.* J20.9 Acute bronchitis, unspecified* New Medication:* Azithromycin 250 mg - 2 pills by mouth today and one by mouth every day for 4 days * Prednisone 10 mg - 4 po q d xs 3 d then 3 q d xs 3 d then 2 q d xs 3 d then 1 qd for 3 days then 1/2 qd for 4 days * Comments:* COVID negative again today, cover with anitbiotics and steroids. * J06.9 Acute upper respiratory infection, unspecified Functional Status Functional Condition Comment Date Status Bifocal glasses Active Independent with all ADL's Activ e Complete lower and upper and lower dentures Active Independent with all IADL's Acti ve Mental Status Mental Condition Comment Date Status Impaired Memory Active Trouble with reading, poor speller Active Referrals Description No Information Available
--- OUTSIDE RECORDS SUMMARY | 2021-03-18 13:38 | CCD | Continuity of Care Document ---
Author Author Renea CAMARA [facility] Organization Unknown Address [address] [place] [address] Phone [phone] Care Team Providers Care Upper Lining Cementer Name Role Phone Gladys Franz MD AUTM [phone] [facility] AUTM Problems Active Problems [...] ankle pain. avoid daily use. 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, COMMAND CENTER ANALYST Metoprolol Tartrate 25mg Tablets take one tablet by mouth twice a day [facility] Neurol ogy Robaxin-750 750mg Tablets take [...] CPT Code Status Date Vaccine Lot # [id number] Given 08/15/2020 Moderna Sars-(Co vid-19) vaccine, mRNA, LNP-S, PF, 100 mcg/ 0.5 mL 74437 Given 07/18/2020 Moderna Sars-(Co vid-19) vaccine, mRNA, LNP-S, PF, 100 mcg/ 0.5 mL 23349 Given 05/03/2020 Influenza Virus, quadravalent, age 4 [...] Flow Rate 338 Estimated Peak Flow Rate [place] Body Weight 105 lb BMI (Body Mass [...] Flow Rate 338 Estimated Peak Flow Rate [place] Body Weight 105 lb BMI (Body Mass Index) 44.0 kg/m2 Results Test Acquired Date Facility Test Result H/L Range Note Laboratory test finding 02/05/2021 [facility] [address] [place] [address] [phone] [facility] Rapid Sars Covid19 negative Influenza A/B RSV Covid Amp 01/30/2021 [place] [address] [phone] Influenza A Amplification NEGATIVE Normal Negati ve 1 Influenza B Amplification NEGATIVE Normal Negative 2 RSV Amplification NEGATIVE Normal Negative 3 Sars Covid-19 Amplification NEGATIVE Normal Negative 4 Coronavirus 2019 Nasopharygeal 01/13/2021 [place] [address] [phone] Coronavirus 2019 Nasopharygeal ASSAY INFORMATIO <SEE N OTE> 5 Clostridium Difficle By PCR 10/12/2020 [place] [address] [phone] Clostridium Difficile PCR TNP Normal Negati ve Nap1 027 For Cdiff PCR TNP Normal Negative 6 Laboratory test finding 10/12/2020 [place] [address] [phone] Stool Lactoferrin-polys by Ica NEGATIVE Normal 7 Fat Fecal Qualitative 10/12/2020 [place] [address] [phone] Fats Neutral Normal Normal . 8 Fats Total Normal Normal . 9 Laboratory test finding 10/12/2020 [place] [address] [phone] Pancreatic Elastase Stool >500 Normal >200 10 Laboratory test finding 10/12/2020 Patient Service [place], [place] 3979219 [phone] Tissue Transglutaminase IgA <2 U/mL Normal 0-3 11 Iga Subclasses 10/12/2020 [place] [address] [phone] IgA Serum (part of Subclasses) 393 mg/dL High 8 7-352 Igasub2 316.7 mg/dL High 73.2-301.2 Igasub3 48.5 mg/dL Normal 13.4-97.9 CBC With Differential 10/12/2020 [place] [address] [phone] White Blood Count 5.7 10 Normal 4.0-10.0 [...] 36.0-66.0 Lymph % 32.3 % Normal 24.0-44.0 [place] % 8.8 % High 2.0-8.0 Eos % 3.0 % Normal 0.0-3.0 Baso % 0.5 % Normal 0.0-1.0 Immature Granulocyte % 0.2 % Normal 0-3.0 Nucleated Red Blood Cell % 0.0 % Normal 0-0 Neutrophils # 3.1 10 Normal 1.5-8.5 Lymph # 1.8 10 Normal 1.5-5.0 [place] # 0.5 10 Normal 0.0-0.8 Eos # 0.2 10 Normal 0.0-0.5 Baso # 0.0 10 Normal 0.0-0.2 Laboratory test finding 10/12/2020 [place] [address] [phone] Erythrocyte Sedimentation Rate 23 mm/hr High 0 -20 Liver Profile 10/12/2020 [place] [address] [phone] Ast/Sgot 32 U/L Normal 7-37 Alt/SGPT 101 U/L High 12-78 Alkaline Phosphatase 123 U/L High 45-117 Bilirubin,Total 0.3 mg/dL Normal 0.2-1.0 Bilirubin,Direct < 0.1 mg/dL Normal 0.0-0.2 Total Protein 7.1 GM/DL Normal 6.4-8.2 Albumin 3.2 GM/DL Normal 3.2-5.2 Albumin/Globulin Ratio 0.8 Low 1.2-2.2 Laboratory test finding 10/12/2020 [place] [address] [phone] C Reactive Protein Quantitativ 0.66 mg/dL High 0 .00-0.30 Laboratory test finding 08/25/2020 [facility] [phone] Urine Culture FULL REPORT IN L <SEE NOTE> Normal 12 Ua W/ Reflex To Culture 08/20/2020 Patient Service [place] 5920103 [phone] Appearance, Urine RFX CLOUDY High Clear Color, Urine RFX RADHA Normal Yellow PH,Urine RFX 5.0 units Normal 5.0-9.0 Specific [place] Ur Auto RFX 1.029 Normal 1.002-1.035 Protein, [...] 0-1 Reflex Urine Culture 08/20/2020 [place] [address] [phone] Reflex Urine Culture FULL REPORT IN L [...] pathogens. DISCLAIMER: Testing was performed using the [employer] SARS-CoV-2 test. This test was developed and its performance characteristics determined by [employer]. This test has not been FDA cleared [...] Administration under the Emergency Use Authorization (EUA). [employer] and [employer] are designated as high complexity laboratories by [...] 100 - 200 Normal: >200 Performed at: [address] [id number] Battery Plate Assembler: Yarely Torres MD, Phone: [phone] Performed at: [address] [id number] Battery Plate Assembler: Thor Escobar MD, Phone: [phone] 11 Negative 0 - 3 Weak Positive 4 - 10 Positive >10 . Tissue Transglutaminase (tTG) has been identified as the endomysial antigen. Studies have demonstr- ated that endomysial IgA antibodies have over 99% specificity for gluten sensitive enteropathy. Performed at: [address] [id number] Battery Plate Assembler: Yarely Torres MD, Phone: [phone] Performed at: [address] [id number] Battery Plate Assembler: Thor Escobar MD, Phone: [phone] 12 FULL REPORT IN LAB NOTES ([facility]C [facility] and [employer]). SPECIMEN APPEARS CONTAMINATED 13 FULL REPORT IN LAB NOTES ([facility]C [facility] and [employer]). SPECIMEN APPEARS CONTAMINATED Procedures Date Code Description Status 02/05/2021 75929 Office/Outpatient Established Mo d MDM 30-39 Min Completed 12/15/2020 69685 Office/Outpatient Established Lo w MDM 20-29 Min Completed 12/12/2020 22090 Office/Outpatient Established Lo w MDM 20-29 Min Completed 11/15/2020 76815 Office/Outpatient Established Mo d MDM 30-39 Min Completed 08/29/2020 73909 Office/Outpatient Established SF MDM 10-19 Min Completed 08/25/2020 32640 Office/Outpatient Established Mo d MDM 30-39 Min Completed Medical Devices Description No Information Available Encounters Type Date Location Provider Dx Diagnosis Office Visit 02/05/2021 8:00a Main Office Gladys Franz M.D. J 20.9 Acute bronchitis, unspecified J06.9 Acute upper respiratory infe ction, unspecified Office Visit 12/15/2020 12:15p Main Office Eden Camara, COMMAND CENTER ANALYST M19.0 69 Primary osteoarthritis, right ankle and [...] Acute upper respiratory infectio n, unspecified Eden Camara, COMMAND CENTER ANALYST 02/05/2021 J20.9 Acute bronchitis, unspecified Wi Gladys jimenes M.D. 02/05/2021 J06.9 Acute upper respiratory infectio n, unspecified Gladys Franz M.D. 12/15/2020 M19.071 Primary osteoarthritis, right an kle and foot PleskEden bedolla, COMMAND CENTER ANALYST 12/15/2020 J45.40 Moderate persistent asthma, unco mplicated PleEden valerio, COMMAND CENTER ANALYST 12/12/2020 H10.33 Unspecified acute conjunctivitis , bilateral [...]
--- OUTSIDE RECORDS SUMMARY | 2021-03-18 13:38 | CCD ---
Continuity of Care Document (CCD) Created on: 02/19/2021 Sasha Renea A External Reference #: [id number] : [id number] Sex: Female Author Author Renea CAMARA [facility] Organization Unknown Address [address] [place] [address] Phone [phone] Care Team Providers Care Asian Studies Professor Name Role Phone Gladys Franz MD AUTM [phone] [facility] AUTM Problems Active Problems [...] repeat once in one hour if needed [facility] Neurology Acetaminophen 500mg Tablets 1-2 tablets three times a day as needed Unknown Oxycodone HCL 5mg Capsules 1 cap by mouth every 6 hours as needed for ankle pain. avoid daily use. 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, TAX SERVICES SPECIALIST Metoprolol Tartrate 25mg Tablets take one tablet by mouth twice a day [facility] Neurol ogy Robaxin-750 750mg Tablets [...] CPT Code Status Date Vaccine Lot # [id number] Given 08/15/2020 Moderna Sars-(Co vid-19) vaccine, mRNA, LNP-S, PF, 100 mcg/ 0.5 mL 95469 Given 07/18/2020 Moderna Sars-(Co vid-19) vaccine, mRNA, LNP-S, PF, 100 mcg/ 0.5 mL 72295 Given 05/03/2020 Influenza Virus, quadravalent, age 4 [...] Flow Rate 338 Estimated Peak Flow Rate [place] Body Weight 105 lb BMI (Body Mass [...] Flow Rate 338 Estimated Peak Flow Rate [place] Body Weight 105 lb BMI (Body Mass Index) 44.0 kg/m2 Results Test Acquired Date Facility Test Result H/L Range Note Laboratory test finding 02/05/2021 [facility] [address] [place] [address] [phone] [facility] Rapid Sars Covid19 negative Influenza A/B RSV Covid Amp 01/30/2021 [place] [address] [phone] Influenza A Amplification NEGATIVE Normal Negati ve 1 Influenza B Amplification NEGATIVE Normal Negative 2 RSV Amplification NEGATIVE Normal Negative 3 Sars Covid-19 Amplification NEGATIVE Normal Negative 4 Coronavirus 2019 Nasopharygeal 01/13/2021 [place] [address] [phone] Coronavirus 2019 Nasopharygeal ASSAY INFORMATIO <SEE N OTE> 5 Clostridium Difficle By PCR 10/12/2020 [place] [address] [phone] Clostridium Difficile PCR TNP Normal Negati ve Nap1 027 For Cdiff PCR TNP Normal Negative 6 Laboratory test finding 10/12/2020 [place] [address] [phone] Stool Lactoferrin-polys by Ica NEGATIVE Normal 7 Fat Fecal Qualitative 10/12/2020 [place] [address] [phone] Fats Neutral Normal Normal . 8 Fats Total Normal Normal . 9 Laboratory test finding 10/12/2020 [place] [address] [phone] Pancreatic Elastase Stool >500 Normal >200 10 Laboratory test finding 10/12/2020 Patient Service [place], [place] 1361138 [phone] Tissue Transglutaminase IgA <2 U/mL Normal 0-3 11 Iga Subclasses 10/12/2020 [place] [address] [phone] IgA Serum (part of Subclasses) 393 mg/dL High 8 7-352 Igasub2 316.7 mg/dL High 73.2-301.2 Igasub3 48.5 mg/dL Normal 13.4-97.9 CBC With Differential 10/12/2020 [place] [address] [phone] White Blood Count 5.7 10 Normal 4.0-10.0 [...] 36.0-66.0 Lymph % 32.3 % Normal 24.0-44.0 [place] % 8.8 % High 2.0-8.0 Eos % 3.0 % Normal 0.0-3.0 Baso % 0.5 % Normal 0.0-1.0 Immature Granulocyte % 0.2 % Normal 0-3.0 Nucleated Red Blood Cell % 0.0 % Normal 0-0 Neutrophils # 3.1 10 Normal 1.5-8.5 Lymph # 1.8 10 Normal 1.5-5.0 [place] # 0.5 10 Normal 0.0-0.8 Eos # 0.2 10 Normal 0.0-0.5 Baso # 0.0 10 Normal 0.0-0.2 Laboratory test finding 10/12/2020 [place] [address] [phone] Erythrocyte Sedimentation Rate 23 mm/hr High 0 -20 Liver Profile 10/12/2020 [place] [address] [phone] Ast/Sgot 32 U/L Normal 7-37 Alt/SGPT 101 U/L High 12-78 Alkaline Phosphatase 123 U/L High 45-117 Bilirubin,Total 0.3 mg/dL Normal 0.2-1.0 Bilirubin,Direct < 0.1 mg/dL Normal 0.0-0.2 Total Protein 7.1 GM/DL Normal 6.4-8.2 Albumin 3.2 GM/DL Normal 3.2-5.2 Albumin/Globulin Ratio 0.8 Low 1.2-2.2 Laboratory test finding 10/12/2020 [place] [address] [phone] C Reactive Protein Quantitativ 0.66 mg/dL High 0 .00-0.30 Laboratory test finding 08/25/2020 [facility] [phone] Urine Culture FULL REPORT IN L <SEE NOTE> Normal 12 Ua W/ Reflex To Culture 08/20/2020 Patient Service [place] 2022695 [phone] Appearance, Urine RFX CLOUDY High Clear Color, Urine RFX RADHA Normal Yellow PH,Urine RFX 5.0 units Normal 5.0-9.0 Specific [place] Ur Auto RFX 1.029 Normal 1.002-1.035 Protein, [...] 0-1 Reflex Urine Culture 08/20/2020 [place] [address] [phone] Reflex Urine Culture FULL REPORT IN L [...] pathogens. DISCLAIMER: Testing was performed using the [employer] SARS-CoV-2 test. This test was developed and its performance characteristics determined by [employer]. This test has not been FDA cleared [...] Administration under the Emergency Use Authorization (EUA). [email or web address] and [employer] are designated as high complexity laboratories by [...] 100 - 200 Normal: >200 Performed at: [address] [id number] Boiler Control Technician: Yarely Torres MD, Phone: [phone] Performed at: [address] [id number] Boiler Control Technician: Thor Escobar MD, Phone: [phone] 11 Negative 0 - 3 Weak Positive 4 - 10 Positive >10 . Tissue Transglutaminase (tTG) has been identified as the endomysial antigen. Studies have demonstr- ated that endomysial IgA antibodies have over 99% specificity for gluten sensitive enteropathy. Performed at: [address] [id number] Boiler Control Technician: Yarely Torres MD, Phone: [phone] Performed at: [address] [id number] Boiler Control Technician: Thor Escobar MD, Phone: [phone] 12 FULL REPORT IN LAB NOTES ([facility]C [facility] and [facility]). SPECIMEN APPEARS CONTAMINATED 13 FULL REPORT IN LAB NOTES ([facility] and [employer]). SPECIMEN APPEARS CONTAMINATED Procedures Date Code Description Status 02/05/2021 78945 Office/Outpatient Established Mo d MDM 30-39 Min Completed 12/15/2020 14557 Office/Outpatient Established Lo w MDM 20-29 Min Completed 12/12/2020 82527 Office/Outpatient Established Lo w MDM 20-29 Min Completed 11/15/2020 43046 Office/Outpatient Established Mo d MDM 30-39 Min Completed 08/29/2020 43336 Office/Outpatient Established SF MDM 10-19 Min Completed 08/25/2020 59400 Office/Outpatient Established Mo d MDM 30-39 Min Completed Medical Devices Description No Information Available Encounters Type Date Location Provider Dx Diagnosis Office Visit 02/05/2021 8:00a Main Office Gladys Franz M.D. J 20.9 Acute bronchitis, unspecified J06.9 Acute upper respiratory infe ction, unspecified Office Visit 12/15/2020 12:15p Main Office Eden Camara, TAX SERVICES SPECIALIST M19.0 69 Primary osteoarthritis, right ankle and [...] upper respiratory infectio n, unspecified Eden Camara, TAX SERVICES SPECIALIST 02/05/2021 J20.9 Acute bronchitis, unspecified Wi Gladys jimenes M.D. 02/05/2021 J06.9 Acute upper respiratory infectio n, unspecified Gladys Franz M.D. 12/15/2020 M19.071 Primary osteoarthritis, right an kle and foot PleskEden bedolla, TAX SERVICES SPECIALIST 12/15/2020 J45.40 Moderate persistent asthma, unco mplicated PleEden valerio, TAX SERVICES SPECIALIST 12/12/2020 H10.33 Unspecified acute conjunctivitis , bilateral [...]
--- OUTSIDE RECORDS SUMMARY | 2021-03-18 13:38 | CCD | Continuity of Care Document ---
Author Author Renea SALINAS M.D. Organization Unknown Address [address] [place] [address] Phone [phone] Care Team Providers Care Laboratory Tester Name Role Phone Gladys Salinas MD AUTM [phone] [facility] AUTM [phone] Problems Active Problems Provider Date Mixed hyperlipidemia [...] repeat once in one hour if needed [facility] Neurology Acetaminophen 500mg Tablets 1-2 tablets three times a day as needed Unknown Oxycodone HCL 5mg Capsules 1 cap by mouth every 6 hours as needed for ankle pain. avoid daily use. 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 FNP Metoprolol Tartrate 25mg Tablets take one tablet by mouth twice a day [facility] Neurol ogy Pantoprazole Sodium 40mg Tablets D R take one tablet by mouth bid 180tabs Unknown 00 Robaxin-750 750mg Tablets take one by mouth [...] CPT Code Status Date Vaccine Lot # [id number] Given 08/15/2020 Moderna Sars-(Co vid-19) vaccine, mRNA, LNP-S, PF, 100 mcg/ 0.5 mL 08002 Given 07/18/2020 Moderna Sars-(Co vid-19) vaccine, mRNA, LNP-S, PF, 100 mcg/ 0.5 mL 77230 Given 05/03/2020 Influenza Virus, quadravalent, age 4 [...] Flow Rate 338 Estimated Peak Flow Rate [place] Body Weight 105 lb BMI (Body Mass Index) 44.0 kg/m2 12/12/2020 1:56pm BP Systolic 123 mmHg BP Diastolic 80 mmHg Heart Rate 76 /min Body Temperature 97.3 F Respiratory Rate 16 /min Height 61.50 inches 5'1.50" Weight 236.00 lb Peak Expiratory Flow Rate 338 Estimated Peak Flow Rate [place] Body Weight 105 lb BMI (Body Mass Index) 43.9 kg/m2 Results Test Acquired Date Facility Test Result H/L Range Note Influenza A/B RSV Covid Amp 01/30/2021 Patient Serv [place], [place] 4749204 [phone] Influenza A Amplification NEGATIVE Normal Negati ve 1 Influenza B Amplification NEGATIVE Normal Negative 2 RSV Amplification NEGATIVE Normal Negative 3 Sars Covid-19 Amplification NEGATIVE Normal Negative 4 Coronavirus 2019 Nasopharygeal 01/13/2021 Patient S ervice Center [place] [id number] [phone] Coronavirus 2019 Nasopharygeal ASSAY INFORMATIO <SEE N OTE> 5 Clostridium Difficle By PCR 10/12/2020 [place] [address] [phone] Clostridium Difficile PCR TNP Normal Negati ve Nap1 027 For Cdiff PCR TNP Normal Negative 6 Laboratory test finding 10/12/2020 [place] [address] [phone] Stool Lactoferrin-polys by Ica NEGATIVE Normal 7 Fat Fecal Qualitative 10/12/2020 [place] [address] [phone] Fats Neutral Normal Normal . 8 Fats Total Normal Normal . 9 Laboratory test finding 10/12/2020 [place] [address] [phone] Pancreatic Elastase Stool >500 Normal >200 10 Laboratory test finding 10/12/2020 [place] [address] [phone] Tissue Transglutaminase IgA <2 U/mL Normal 0-3 11 Iga Subclasses 10/12/2020 Patient Service [place] 7179446 [phone] IgA Serum (part of Subclasses) 393 mg/dL High 8 7-352 Igasub2 316.7 mg/dL High 73.2-301.2 Igasub3 48.5 mg/dL Normal 13.4-97.9 CBC With Differential 10/12/2020 Patient Service Ce [place] 0146239 [phone] White Blood Count 5.7 10 Normal 4.0-10.0 [...] 36.0-66.0 Lymph % 32.3 % Normal 24.0-44.0 [place] % 8.8 % High 2.0-8.0 Eos % 3.0 % Normal 0.0-3.0 Baso % 0.5 % Normal 0.0-1.0 Immature Granulocyte % 0.2 % Normal 0-3.0 Nucleated Red Blood Cell % 0.0 % Normal 0-0 Neutrophils # 3.1 10 Normal 1.5-8.5 Lymph # 1.8 10 Normal 1.5-5.0 [place] # 0.5 10 Normal 0.0-0.8 Eos # 0.2 10 Normal 0.0-0.5 Baso # 0.0 10 Normal 0.0-0.2 Laboratory test finding 10/12/2020 [place] [address] [phone] Erythrocyte Sedimentation Rate 23 mm/hr High 0 -20 Liver Profile 10/12/2020 [place] [address] [phone] Ast/Sgot 32 U/L Normal 7-37 Alt/SGPT 101 U/L High 12-78 Alkaline Phosphatase 123 U/L High 45-117 Bilirubin,Total 0.3 mg/dL Normal 0.2-1.0 Bilirubin,Direct < 0.1 mg/dL Normal 0.0-0.2 Total Protein 7.1 GM/DL Normal 6.4-8.2 Albumin 3.2 GM/DL Normal 3.2-5.2 Albumin/Globulin Ratio 0.8 Low 1.2-2.2 Laboratory test finding 10/12/2020 [place] [address] [phone] C Reactive Protein Quantitativ 0.66 mg/dL High 0 .00-0.30 Laboratory test finding 08/25/2020 [facility] [phone] Urine Culture FULL REPORT IN L <SEE NOTE> Normal 12 Ua W/ Reflex To Culture 08/20/2020 [place] [address] [phone] Appearance, Urine RFX CLOUDY High Clear Color, Urine RFX RADHA Normal Yellow PH,Urine RFX 5.0 units Normal 5.0-9.0 Specific [place] Ur Auto RFX 1.029 Normal 1.002-1.035 Protein, [...] Urine Culture 08/20/2020 Patient Service [place], [place] 5092832 [phone] Reflex Urine Culture FULL REPORT IN L [...] pathogens. DISCLAIMER: Testing was performed using the [employer] SARS-CoV-2 test. This test was developed and its performance characteristics determined by [employer]. This test has not been FDA cleared [...] Administration under the Emergency Use Authorization (EUA). [employer] and [employer] are designated as high complexity laboratories by [...] Performed at: [facility] [employer] [id number] Individual Pension Adviser: Yarely Torres MD, Phone: [phone] Performed at: [address] [id number] Individual Pension Adviser: Thor Escobar MD, Phone: [phone] 11 Negative 0 - 3 Weak Positive 4 - 10 Positive >10 . Tissue Transglutaminase (tTG) has been identified as the endomysial antigen. Studies have demonstr- ated that endomysial IgA antibodies have over 99% specificity for gluten sensitive enteropathy. Performed at: [facility] [employer] [address] [id number] Individual Pension Adviser: Yaerly Torres MD, Phone: [phone] Performed at: - [facility] [id number] Individual Pension Adviser: Thor Escobar MD, Phone: [phone] 12 FULL REPORT IN LAB NOTES ([facility]C W and [employer]). SPECIMEN APPEARS CONTAMINATED 13 FULL REPORT IN LAB NOTES ([facility] [employer]). SPECIMEN APPEARS CONTAMINATED Procedures Date Code Description Status 12/15/2020 25203 Office/Outpatient Established Lo w MDM 20-29 Min Completed 12/12/2020 46514 Office/Outpatient Established Lo w MDM 20-29 Min Completed 11/15/2020 62615 Office/Outpatient Established Mo d MDM 30-39 Min Completed 08/29/2020 43153 Office/Outpatient Established SF MDM 10-19 Min Completed 08/25/2020 04084 Office/Outpatient Established Mo d MDM 30-39 Min Completed 08/15/2020 26283 Office/Outpatient Established Mo d MDM 30-39 Min [...] right an kle and foot Eden Camara, CONFERENCE SERVICES DIRECTOR 12/15/2020 J45.40 Moderate persistent asthma, unco mplicated PleEden valerio, [facility] 12/12/2020 H10.33 Unspecified acute conjunctivitis , [...] (primary) hypertension Gladys Salinas M.D. 08/25/2020 R30.0 Gladys Preston M.D. 08/15/2020 I10 Essential (primary) hypertension Gladys Salinas M.D. 08/15/2020 E78.2 Mixed hyperlipidemia Jacob Salinas M.D. 08/15/2020 R73.01 Impaired fasting glucose Gladys Haskins M.D. 08/15/2020 K21.9 Gastro-esophageal reflux disease without esophagitis Gladys Salinas M.D. 08/15/2020 M19.071 Primary osteoarthritis, right an kle and foot Gladys Salinas M.D. Plan of Treatment Future Appointment(s):* 03/20/2021 1:15 pm - dEen Camara FNP at Main Office 12/15/2020 - [...]
--- OUTSIDE RECORDS SUMMARY | 2021-03-18 13:38 | CCD | Continuity of Care Document ---
Author Author R[facility]a [facility] Organization Unknown Address [address] [place] [address] Phone [phone] Care Team Providers Care Mammalogist Name Role Phone Gladys Franz MD AUTM [phone] [facility] AUTM Problems Active Problems Provider Date Mixed hyperlipidemia Regina Gagnon PA Onset: Essential hypertension Regina Gagnon PA Onset: 0 06/19/2020 Gastroesophageal reflux disease Gladys Frazn M.D. Ons et: 11/15/2020 Prediabetes Gladys Franz [...] repeat once in one hour if needed [facility] Neurology Acetaminophen 500mg Tablets 1-2 tablets three times a day as needed Unknown Oxycodone HCL 5mg Capsules 1 cap by mouth every 6 hours as needed for ankle pain. avoid daily use. 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, [employer] Metoprolol Tartrate 25mg Tablets take one tablet by mouth twice a day [facility] Neurol ogy Robaxin-750 750mg Tablets take one [...] CPT Code Status Date Vaccine Lot # [id number] Given 08/15/2020 Moderna Sars-(Co vid-19) vaccine, mRNA, LNP-S, PF, 100 mcg/ 0.5 mL 25537 Given 07/18/2020 Moderna Sars-(Co vid-19) vaccine, mRNA, LNP-S, PF, 100 mcg/ 0.5 mL 03305 Given 05/03/2020 Influenza Virus, quadravalent, age 4 [...] Flow Rate 338 Estimated Peak Flow Rate [place] Body Weight 105 lb BMI (Body Mass [...] Flow Rate 338 Estimated Peak Flow Rate [place] Body Weight 105 lb BMI (Body Mass Index) 44.0 kg/m2 Results Test Acquired Date Facility Test Result H/L Range Note Laboratory test finding 02/05/2021 [facility] [address] [place] [address] [phone] [facility]ars Covid19 negative Influenza A/B RSV Covid Amp 01/30/2021 [place] [address] [phone] Influenza A Amplification NEGATIVE Normal Negati ve 1 Influenza B Amplification NEGATIVE Normal Negative 2 RSV Amplification NEGATIVE Normal Negative 3 Sars Covid-19 Amplification NEGATIVE Normal Negative 4 Coronavirus 2019 Nasopharygeal 01/13/2021 [place] [address] [phone] Coronavirus 2019 Nasopharygeal ASSAY INFORMATIO <SEE N OTE> 5 Clostridium Difficle By PCR 10/12/2020 [place] [address] [phone] Clostridium Difficile PCR TNP Normal Negati ve Nap1 027 For Cdiff PCR TNP Normal Negative 6 Laboratory test finding 10/12/2020 [place] [address] [phone] Stool Lactoferrin-polys by Ica NEGATIVE Normal 7 Fat Fecal Qualitative 10/12/2020 [place] [address] [phone] Fats Neutral Normal Normal . 8 Fats Total Normal Normal . 9 Laboratory test finding 10/12/2020 [place] [address] [phone] Pancreatic Elastase Stool >500 Normal >200 10 Laboratory test finding 10/12/2020 Patient Service [place], [place] [address] [phone] Tissue Transglutaminase IgA <2 U/mL Normal 0-3 11 Iga Subclasses 10/12/[address] [place] [address] [phone] IgA Serum (part of Subclasses) 393 mg/dL High 8 7-352 Igasub2 316.7 mg/dL High 73.2-301.2 Igasub3 48.5 mg/dL Normal 13.4-97.9 CBC With Differential 10/12/2020 [place] [address] [phone] White Blood Count 5.7 10 Normal 4.0-10.0 [...] 36.0-66.0 Lymph % 32.3 % Normal 24.0-44.0 [place] % 8.8 % High 2.0-8.0 Eos % 3.0 % Normal 0.0-3.0 Baso % 0.5 % Normal 0.0-1.0 Immature Granulocyte % 0.2 % Normal 0-3.0 Nucleated Red Blood Cell % 0.0 % Normal 0-0 Neutrophils # 3.1 10 Normal 1.5-8.5 Lymph # 1.8 10 Normal 1.5-5.0 Woods # 0.5 10 Normal 0.0-0.8 Eos # 0.2 10 Normal 0.0-0.5 Baso # 0.0 10 Normal 0.0-0.2 Laboratory test finding 10/12/2020 Patient [place] [address] [phone] Erythrocyte Sedimentation Rate 23 mm/hr High 0 -20 Liver Profile 10/12/2020 [place] [address] [phone] Ast/Sgot 32 U/L Normal 7-37 Alt/SGPT 101 U/L High 12-78 Alkaline Phosphatase 123 U/L High 45-117 Bilirubin,Total 0.3 mg/dL Normal 0.2-1.0 Bilirubin,Direct < 0.1 mg/dL Normal 0.0-0.2 Total Protein 7.1 GM/DL Normal 6.4-8.2 Albumin 3.2 GM/DL Normal 3.2-5.2 Albumin/Globulin Ratio 0.8 Low 1.2-2.2 Laboratory test finding 10/12/2020 [place] [address] [phone] C Reactive Protein Quantitativ 0.66 mg/dL High 0 .00-0.30 Laboratory test finding 08/25/2020 [facility] [phone] Urine Culture FULL REPORT IN L <SEE NOTE> Normal 12 Ua W/ Reflex To Culture 08/20/2020 Patient Service [place] [id number] [phone] Appearance, Urine RFX CLOUDY High Clear Color, Urine RFX RADHA Normal Yellow PH,Urine RFX 5.0 units Normal 5.0-9.0 Specific [place] Ur Auto RFX 1.029 Normal 1.002-1.035 Protein, [...] 0-1 Reflex Urine Culture 08/20/2020 [place] [address] [phone] Reflex Urine Culture FULL REPORT IN L [...] pathogens. DISCLAIMER: Testing was performed using the [employer] SARS-CoV-2 test. This test was developed and its performance characteristics determined by [employer]. This test has not been FDA cleared [...] Administration under the Emergency Use Authorization (EUA). [employer] and [employer] are designated as high complexity laboratories by [...] 100 - 200 Normal: >200 Performed at: [address] [id number] Financial Recording Clerk: Yarely Torres MD, Phone: [phone] Performed at: [address] [id number] Financial Recording Clerk: Thor Escobar MD, Phone: [phone] 11 Negative 0 - 3 Weak Positive 4 - 10 Positive >10 . Tissue Transglutaminase (tTG) has been identified as the endomysial antigen. Studies have demonstr- ated that endomysial IgA antibodies have over 99% specificity for gluten sensitive enteropathy. Performed at: [address] [id number] Financial Recording Clerk: Yarely Torres MD, Phone: [phone] Performed at: [address] [id number] Financial Recording Clerk: Thor Escobar MD, Phone: [phone] 12 FULL REPORT IN LAB NOTES ([facility]C [facility] and [facility]). SPECIMEN APPEARS CONTAMINATED 13 FULL REPORT IN LAB NOTES ([facility]C [facility] and [employer]). SPECIMEN APPEARS CONTAMINATED Procedures Date Code Description Status 02/05/2021 08099 Office/Outpatient Established Mo d MDM 30-39 Min Completed 12/15/2020 86546 Office/Outpatient Established Lo w MDM 20-29 Min Completed 12/12/2020 52949 Office/Outpatient Established Lo w MDM 20-29 Min Completed 11/15/2020 85762 Office/Outpatient Established Mo d MDM 30-39 Min Completed 08/29/2020 65883 Office/Outpatient Established SF MDM 10-19 Min Completed 08/25/2020 37725 Office/Outpatient Established Mo d MDM 30-39 Min Completed Medical Devices Description No Information Available Encounters Type Date Location Provider Dx Diagnosis Office Visit 02/05/2021 8:00a Main Office Gladys Franz M.D. J 20.9 Acute bronchitis, unspecified J06.9 Acute upper respiratory infe ction, unspecified Office Visit 12/15/2020 12:15p Main Office Eden Camara, [employer] M19.0 71 Primary osteoarthritis, right ankle and [...] upper respiratory infectio n, unspecified Eden Camara, [employer] 02/05/2021 J20.9 Acute bronchitis, unspecified Wi Gladys jimenes M.D. 02/05/2021 J06.9 Acute upper respiratory infectio n, unspecified Gladys Franz M.D. 12/15/2020 M19.071 Primary osteoarthritis, right an kle and foot PleskEden bedolla, [employer]ER 12/15/2020 J45.40 Moderate persistent asthma, unco mplicated PleEden valerio, [employer] 12/12/2020 H10.33 Unspecified acute conjunctivitis , bilateral [...]
--- OUTSIDE RECORDS SUMMARY | 2021-03-18 13:38 | CCD | Continuity of Care Document ---
Author Author Renea SALINAS M.D. Organization Unknown Address [address] [place] [address] Phone [phone] Care Team Providers Care White Sugar Pan Tank Operator Name Role Phone Gladys Salinas MD AUTM [phone] [facility] AUTM [phone] Problems Active Problems Provider Date Mixed hyperlipidemia [...] qd for 4 days 32tabs J20.9 Gladys Salinas M.D. 02/05/2021 Azithromycin 250mg Tablets 2 pills [...] pain. avoid daily use. 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, ROD GREASER Metoprolol Tartrate 25mg Tablets take one tablet by mouth twice a day [facility] Neurol ogy Pantoprazole Sodium 40mg [...] CPT Code Status Date Vaccine Lot # [id number] Given 08/15/2020 Moderna Sars-(Co vid-19) vaccine, mRNA, LNP-S, PF, 100 mcg/ 0.5 mL 14389 Given 07/18/2020 Moderna Sars-(Co vid-19) vaccine, mRNA, LNP-S, PF, 100 mcg/ 0.5 mL 03127 Given 05/03/2020 Influenza Virus, quadravalent, age 4 [...] Flow Rate 338 Estimated Peak Flow Rate [place] Body Weight 105 lb BMI (Body Mass Index) 44.0 kg/m2 12/12/2020 1:56pm BP Systolic 123 mmHg BP Diastolic 80 mmHg Heart Rate 76 /min Body Temperature 97.3 F Respiratory Rate 16 /min Height 61.50 inches 5'1.50" Weight 236.00 lb Peak Expiratory Flow Rate 338 Estimated Peak Flow Rate [place] Body Weight 105 lb BMI (Body Mass Index) 43.9 kg/m2 Results Test Acquired Date Facility Test Result H/L Range Note Laboratory test finding 02/05/2021 [facility] [address] [place] [address] [phone] [facility] Sars Covid19 negative Influenza A/B RSV Covid Amp 01/30/2021 [place] [address] [phone] Influenza A Amplification NEGATIVE Normal Negati ve 1 Influenza B Amplification NEGATIVE Normal Negative 2 RSV Amplification NEGATIVE Normal Negative 3 Sars Covid-19 Amplification NEGATIVE Normal Negative 4 Coronavirus 2019 Nasopharygeal 01/13/2021 [facility] [place] [address] [phone] Coronavirus 2019 Nasopharygeal ASSAY INFORMATIO <SEE N OTE> 5 Clostridium Difficle By PCR 10/12/2020 [place] [address] [phone] Clostridium Difficile PCR TNP Normal Negati ve Nap1 027 For Cdiff PCR TNP Normal Negative 6 Laboratory test finding 10/12/2020 [place] [address] [phone] Stool Lactoferrin-polys by Ica NEGATIVE Normal 7 Fat Fecal Qualitative 10/12/2020 [place] [address] [phone] Fats Neutral Normal Normal . 8 Fats Total Normal Normal . 9 Laboratory test finding 10/12/2020 [place] [address] [phone] Pancreatic Elastase Stool >500 Normal >200 10 Laboratory test finding 10/12/2020 [place] [address] [phone] Tissue Transglutaminase IgA <2 U/mL Normal 0-3 11 Iga Subclasses 10/12/2020 [place] [address] [phone] IgA Serum (part of Subclasses) 393 mg/dL High 8 7-352 Igasub2 316.7 mg/dL High 73.2-301.2 Igasub3 48.5 mg/dL Normal 13.4-97.9 CBC With Differential 10/12/2020 [place] [address] [phone] White Blood Count 5.7 10 Normal 4.0-10.0 [...] 36.0-66.0 Lymph % 32.3 % Normal 24.0-44.0 [place] % 8.8 % High 2.0-8.0 Eos % 3.0 % Normal 0.0-3.0 Baso % 0.5 % Normal 0.0-1.0 Immature Granulocyte % 0.2 % Normal 0-3.0 Nucleated Red Blood Cell % 0.0 % Normal 0-0 Neutrophils # 3.1 10 Normal 1.5-8.5 Lymph # 1.8 10 Normal 1.5-5.0 [place] # 0.5 10 Normal 0.0-0.8 Eos # 0.2 10 Normal 0.0-0.5 Baso # 0.0 10 Normal 0.0-0.2 Laboratory test finding 10/12/2020 [place] [address] [phone] Erythrocyte Sedimentation Rate 23 mm/hr High 0 -20 Liver Profile 10/12/2020 Patient Service [facility] [place] [address] [phone] Ast/Sgot 32 U/L Normal 7-37 Alt/SGPT 101 U/L High 12-78 Alkaline Phosphatase 123 U/L High 45-117 Bilirubin,Total 0.3 mg/dL Normal 0.2-1.0 Bilirubin,Direct < 0.1 mg/dL Normal 0.0-0.2 Total Protein 7.1 GM/DL Normal 6.4-8.2 Albumin 3.2 GM/DL Normal 3.2-5.2 Albumin/Globulin Ratio 0.8 Low 1.2-2.2 Laboratory test finding 10/12/2020 [place] [address] [phone] C Reactive Protein Quantitativ 0.66 mg/dL High 0 .00-0.30 Laboratory test finding 08/25/2020 [facility] [phone] Urine Culture FULL REPORT IN L <SEE NOTE> Normal 12 Ua W/ Reflex To Culture 08/20/2020 [place] [address] [phone] Appearance, Urine RFX CLOUDY High Clear Color, Urine RFX RADHA Normal Yellow PH,Urine RFX 5.0 units Normal 5.0-9.0 Specific [place] Ur Auto RFX 1.029 Normal 1.002-1.035 Protein, [...] 0-1 Reflex Urine Culture 08/20/2020 [place] [address] [phone] Reflex Urine Culture FULL REPORT IN L [...] pathogens. DISCLAIMER: Testing was performed using the [employer] SARS-CoV-2 test. This test was developed and its performance characteristics determined by [employer]. This test has not been FDA cleared [...] Administration under the Emergency Use Authorization (EUA). [employer] and [employer] are designated as high complexity laboratories by [...] 100 - 200 Normal: >200 Performed at: [facility] [address] [id number] Senior Ui Ux Developer: Yarely Torres MD, Phone: [phone] Performed at: [address] [id number] Senior Ui Ux Developer: Thor Escobar MD, Phone: [phone] 11 Negative 0 - 3 Weak Positive 4 - 10 Positive >10 . Tissue Transglutaminase (tTG) has been identified as the endomysial antigen. Studies have demonstr- ated that endomysial IgA antibodies have over 99% specificity for gluten sensitive enteropathy. Performed at: [address] [id number] Senior Ui Ux Developer: Yarely Torres MD, Phone: [phone] Performed at: [address] [id number] Senior Ui Ux Developer: Thor Escobar MD, Phone: [phone] 12 FULL REPORT IN LAB NOTES ([facility]C [facility] and [facility]). SPECIMEN APPEARS CONTAMINATED 13 FULL REPORT IN LAB NOTES ([facility] and [employer]). SPECIMEN APPEARS CONTAMINATED Procedures Date Code Description Status 12/15/2020 50340 Office/Outpatient Established Lo w MDM 20-29 Min Completed 12/12/2020 55773 Office/Outpatient Established Lo w MDM 20-29 Min Completed 11/15/2020 31221 Office/Outpatient Established Mo d MDM 30-39 Min Completed 08/29/2020 70494 Office/Outpatient Established SF MDM 10-19 Min Completed 08/25/2020 86335 Office/Outpatient Established Mo d MDM 30-39 Min Completed 08/15/2020 44676 Office/Outpatient Established Mo d MDM 30-39 Min [...] right an kle and foot Eden Camara, [facility] 12/15/2020 J45.40 Moderate persistent asthma, unco mplicated PleEden valerio, [facility] 12/12/2020 H10.33 Unspecified acute conjunctivitis , [...]
--- OUTSIDE RECORDS SUMMARY | 2021-03-18 13:38 | CCD | Continuity of Care Document ---
Author Author Renea SALINAS M.D. Organization Unknown Address [address] [place] [address] Phone [phone] Care Team Providers Care Thermoplastic Technician Name Role Phone Gladys Salinas MD AUTM [phone] [facility] AUTM [phone] Problems Active Problems Provider Date Mixed hyperlipidemia [...] pain. avoid daily use. 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 Metoprolol Tartrate 25mg Tablets take one [...] CPT Code Status Date Vaccine Lot # [id number] Given 08/15/2020 Moderna Sars-(Co vid-19) vaccine, mRNA, LNP-S, PF, 100 mcg/ 0.5 mL 89075 Given 07/18/2020 Moderna Sars-(Co vid-19) vaccine, mRNA, LNP-S, PF, 100 mcg/ 0.5 mL 99390 Given 05/03/2020 Influenza Virus, quadravalent, age 4 [...] Flow Rate 338 Estimated Peak Flow Rate [place] Body Weight 105 lb BMI (Body Mass Index) 44.0 kg/m2 12/12/2020 1:56pm BP Systolic 123 mmHg BP Diastolic 80 mmHg Heart Rate 76 /min Body Temperature 97.3 F Respiratory Rate 16 /min Height 61.50 inches 5'1.50" Weight 236.00 lb Peak Expiratory Flow Rate 338 Estimated Peak Flow Rate [place] Body Weight 105 lb BMI (Body Mass Index) 43.9 kg/m2 Results Test Acquired Date Facility Test Result H/L Range Note Laboratory test finding 02/05/2021 [facility] [address] [place] [address] [phone] [facility] Sars Covid19 negative Influenza A/B RSV Covid Amp 01/30/2021 [place] [address] [phone] Influenza A Amplification NEGATIVE Normal Negati ve 1 Influenza B Amplification NEGATIVE Normal Negative 2 RSV Amplification NEGATIVE Normal Negative 3 Sars Covid-19 Amplification NEGATIVE Normal Negative 4 Coronavirus 2019 Nasopharygeal 01/13/2021 [facility] [place] [address] [phone] Coronavirus 2019 Nasopharygeal ASSAY INFORMATIO <SEE N OTE> 5 Clostridium Difficle By PCR 10/12/2020 [place] [address] [phone] Clostridium Difficile PCR TNP Normal Negati ve Nap1 027 For Cdiff PCR TNP Normal Negative 6 Laboratory test finding 10/12/2020 [place] [address] [phone] Stool Lactoferrin-polys by Ica NEGATIVE Normal 7 Fat Fecal Qualitative 10/12/2020 [place] [address] [phone] Fats Neutral Normal Normal . 8 Fats Total Normal Normal . 9 Laboratory test finding 10/12/2020 [place] [address] [phone] Pancreatic Elastase Stool >500 Normal >200 10 Laboratory test finding 10/12/2020 [place] [address] [phone] Tissue Transglutaminase IgA <2 U/mL Normal 0-3 11 Iga Subclasses 10/12/2020 [place] [address] [phone] IgA Serum (part of Subclasses) 393 mg/dL High 8 7-352 Igasub2 316.7 mg/dL High 73.2-301.2 Igasub3 48.5 mg/dL Normal 13.4-97.9 CBC With Differential 10/12/2020 [place] [address] [phone] White Blood Count 5.7 10 Normal 4.0-10.0 [...] 36.0-66.0 Lymph % 32.3 % Normal 24.0-44.0 [place] % 8.8 % High 2.0-8.0 Eos % 3.0 % Normal 0.0-3.0 Baso % 0.5 % Normal 0.0-1.0 Immature Granulocyte % 0.2 % Normal 0-3.0 Nucleated Red Blood Cell % 0.0 % Normal 0-0 Neutrophils # 3.1 10 Normal 1.5-8.5 Lymph # 1.8 10 Normal 1.5-5.0 [place] # 0.5 10 Normal 0.0-0.8 Eos # 0.2 10 Normal 0.0-0.5 Baso # 0.0 10 Normal 0.0-0.2 Laboratory test finding 10/12/2020 [place] [address] [phone] Erythrocyte Sedimentation Rate 23 mm/hr High 0 -20 Liver Profile 10/12/2020 Patient Service [facility] [place] [address] [phone] Ast/Sgot 32 U/L Normal 7-37 Alt/SGPT 101 U/L High 12-78 Alkaline Phosphatase 123 U/L High 45-117 Bilirubin,Total 0.3 mg/dL Normal 0.2-1.0 Bilirubin,Direct < 0.1 mg/dL Normal 0.0-0.2 Total Protein 7.1 GM/DL Normal 6.4-8.2 Albumin 3.2 GM/DL Normal 3.2-5.2 Albumin/Globulin Ratio 0.8 Low 1.2-2.2 Laboratory test finding 10/12/2020 [place] [address] [phone] C Reactive Protein Quantitativ 0.66 mg/dL High 0 .00-0.30 Laboratory test finding 08/25/[address] [facility] [phone] Urine Culture FULL REPORT IN L <SEE NOTE> Normal 12 Ua W/ Reflex To Culture 08/20/2020 [place] [address] [phone] Appearance, Urine RFX CLOUDY High Clear Color, Urine RFX RADHA Normal Yellow PH,Urine RFX 5.0 units Normal 5.0-9.0 Specific [place] Ur Auto RFX 1.029 Normal 1.002-1.035 Protein, [...] 0-1 Reflex Urine Culture 08/20/2020 [place] [address] [phone] Reflex Urine Culture FULL REPORT IN L [...] pathogens. DISCLAIMER: Testing was performed using the [employer] SARS-CoV-2 test. This test was developed and its performance characteristics determined by [employer]. This test has not been FDA cleared [...] Administration under the Emergency Use Authorization (EUA). [employer] and [employer] are designated as high complexity laboratories [...] 100 - 200 Normal: >200 Performed at: [facility] [address] [id number] Pbx Manager: Yarely Torres MD, Phone: [phone] Performed at: [address] [id number] Pbx Manager: Thor Escobar MD, Phone: [phone] 11 Negative 0 - 3 Weak Positive 4 - 10 Positive >10 . Tissue Transglutaminase (tTG) has been identified as the endomysial antigen. Studies have demonstr- ated that endomysial IgA antibodies have over 99% specificity for gluten sensitive enteropathy. Performed at: [address] [id number] Pbx Manager: Yarely Torres MD, Phone: [phone] Performed at: [address] [id number] Pbx Manager: Thor Escobar MD, Phone: [phone] 12 FULL REPORT IN LAB NOTES ([facility]C [facility] and [facility]). SPECIMEN APPEARS CONTAMINATED 13 FULL REPORT IN LAB NOTES ([facility] and [employer]). SPECIMEN APPEARS CONTAMINATED Procedures Date Code Description Status 02/05/2021 99446 Office/Outpatient Established Mo d MDM 30-39 Min Completed 12/15/2020 76109 Office/Outpatient Established Lo w MDM 20-29 Min Completed 12/12/2020 27715 Office/Outpatient Established Lo w MDM 20-29 Min Completed 11/15/2020 19556 Office/Outpatient Established Mo d MDM 30-39 Min Completed 08/29/2020 13685 Office/Outpatient Established SF MDM 10-19 Min Completed 08/25/2020 30059 Office/Outpatient Established Mo d MDM 30-39 Min Completed 08/15/2020 20402 Office/Outpatient Established Mo d MDM 30-39 Min [...] right an kle and foot Eden Camara, [facility] 12/15/2020 J45.40 Moderate persistent asthma, unco mplicated Eden Camara, [facility] 12/12/2020 H10.33 Unspecified acute conjunctivitis , [...] Salinas M.D. Plan of Treatment Future Appointment(s):* 02/22/2021 3:45 pm - Gladys Salinas M.D. at Main Office * 03/20/2021 1:15 pm - Eden Camara FNP [...]
--- OUTSIDE RECORDS SUMMARY | 2021-03-18 13:40 | CCD ---
Author Author [facility] Organization [facility] Address Unknown Phone Unavailable Care Team Providers [facility] Director Name Role Phone Kocan, J Shaina TRUCK UNLOADER Unavailable Unavailable Kocan, J Shaina TRUCK UNLOADER Unavailable Unavailable Kocan, J Shaina TRUCK UNLOADER Unavailable Unavailable Kocan, J Shaina TRUCK UNLOADER Unavailable Unavailable Kocan, J Shaina TRUCK UNLOADER Unavailable Unavailable Kocan, J Shaina TRUCK UNLOADER Unavailable Unavailable Kocan, J Shaina TRUCK UNLOADER Unavailable Unavailable Kocan, J Shaina TRUCK UNLOADER Unavailable Unavailable Kocan, J Shaina TRUCK UNLOADER Unavailable Unavailable Kocan, J Shaina TRUCK UNLOADER Unavailable Unavailable Kocan, J Shaina TRUCK UNLOADER Unavailable Unavailable Kocan, J Shaina TRUCK UNLOADER Unavailable Unavailable Kocan, J Shaina TRUCK UNLOADER Unavailable Unavailable Kocan, J Shaina TRUCK UNLOADER Unavailable Unavailable Kocan, J Shaina TRUCK UNLOADER Unavailable Unavailable Petrancosta, [place] Regina PA-C Unavailable Unavailabl e Petrancosta, [place] Regina PA-C Unavailable Unavailabl e Petrancosta, [place] Regina PA-C Unavailable Unavailabl e Petrancosta, [place] Regina PA-C Unavailable Unavailabl e Petrancosta, [place] Regina PA-C Unavailable Unavailabl e Petrancosta, [place] Regina PA-C Unavailable Unavailabl e Petrancosta, [place] Regina PA-C Unavailable Unavailabl e Petrancosta, [place] Regina PA-C Unavailable Unavailabl e Petrancosta, [place] Regina PA-C Unavailable Unavailabl e Petrancosta, [place] Regina PA-C Unavailable Unavailabl e Petrancosta, [place] Regina PA-C Unavailable Unavailabl e Petrancosta, [place] Regina PA-C Unavailable Unavailabl e Petrancosta, [place] Regina PA-C Unavailable Unavailabl e Petrancosta, [place] Regina PA-C Unavailable Unavailabl e Petrancosta, [place] Regina PA-C Unavailable Unavailabl e Petrancosta, [place] Regina PA-C Unavailable Unavailabl e Petrancosta, [place] Regina PA-C Unavailable Unavailabl e Petrancosta, [place] Regina PA-C Unavailable Unavailabl e Petrancosta, [place] Regina PA-C Unavailable Unavailabl e Petrancosta, [place] Regina PA-C Unavailable Unavailabl e Petrancosta, [place] Regina PA-C Unavailable Unavailabl e Petrancosta, [place] Regina PA-C Unavailable Unavailabl e Petrancosta, [place] Regina PA-C Unavailable Unavailabl e Petrancosta, [place] Regina PA-C Unavailable Unavailabl e Petrancosta, [place] Regina PA-C Unavailable Unavailabl e Elinor Leung [...] Ali, Elinor MD Unavailable Unavailable Pleskach, Eden LONGWALL HEADGATE OPERATOR Unavailable Unavailable Pleskach, Eden LONGWALL HEADGATE OPERATOR Unavailable Unavailable Pleskach, Eden LONGWALL HEADGATE OPERATOR Unavailable Unavailable Pleskach, Eden LONGWALL HEADGATE OPERATOR Unavailable Unavailable Pleskach, Eden LONGWALL HEADGATE OPERATOR Unavailable Unavailable Pleskach, Eden LONGWALL HEADGATE OPERATOR Unavailable Unavailable Pleskach, Eden LONGWALL HEADGATE OPERATOR Unavailable Unavailable Pleskach, Eden LONGWALL HEADGATE OPERATOR Unavailable Unavailable Pleskach, Eden LONGWALL HEADGATE OPERATOR Unavailable Unavailable Pleskach, Eden LONGWALL HEADGATE OPERATOR Unavailable Unavailable Pleskach, Eden LONGWALL HEADGATE OPERATOR Unavailable Unavailable Pleskach, Eden LONGWALL HEADGATE OPERATOR Unavailable Unavailable Pleskach, Eden LONGWALL HEADGATE OPERATOR Unavailable Unavailable Pleskach, Eden LONGWALL HEADGATE OPERATOR Unavailable Unavailable Pleskach, Eden LONGWALL HEADGATE OPERATOR Unavailable Unavailable Pleskach, Eden LONGWALL HEADGATE OPERATOR Unavailable Unavailable Pleskach, Eden LONGWALL HEADGATE OPERATOR Unavailable Unavailable Pleskach, Eden LONGWALL HEADGATE OPERATOR Unavailable Unavailable Pleskach, Eden LONGWALL HEADGATE OPERATOR Unavailable Unavailable Pleskach, Eden LONGWALL HEADGATE OPERATOR Unavailable Unavailable Pleskach, Eden LONGWALL HEADGATE OPERATOR Unavailable Unavailable Pleskach, Eden LONGWALL HEADGATE OPERATOR Unavailable Unavailable Pleskach, Eden LONGWALL HEADGATE OPERATOR Unavailable Unavailable Pleskach, Eden LONGWALL HEADGATE OPERATOR Unavailable Unavailable Pleskach, Eden LONGWALL HEADGATE OPERATOR Unavailable Unavailable Pleskach, Eden LONGWALL HEADGATE OPERATOR Unavailable Unavailable Pleskach, Eden LONGWALL HEADGATE OPERATOR Unavailable Unavailable Pleskach, Eden LONGWALL HEADGATE OPERATOR Unavailable Unavailable Pleskach, Eden LONGWALL HEADGATE OPERATOR Unavailable Unavailable Pleskach, Eden LONGWALL HEADGATE OPERATOR Unavailable Unavailable Pleskach, Eden LONGWALL HEADGATE OPERATOR Unavailable Unavailable Pleskach, Eden LONGWALL HEADGATE OPERATOR Unavailable Unavailable Pleskach, Eden LONGWALL HEADGATE OPERATOR Unavailable Unavailable Pleskach, Eden LONGWALL HEADGATE OPERATOR Unavailable Unavailable Pleskach, Eden LONGWALL HEADGATE OPERATOR Unavailable Unavailable Pleskach, Eden LONGWALL HEADGATE OPERATOR Unavailable Unavailable Pleskach, Eden LONGWALL HEADGATE OPERATOR Unavailable Unavailable Pleskach, Eden LONGWALL HEADGATE OPERATOR Unavailable Unavailable Pleskach, Eden LONGWALL HEADGATE OPERATOR Unavailable Unavailable Pleskach, Eden LONGWALL HEADGATE OPERATOR Unavailable Unavailable Pleskach, Eden LONGWALL HEADGATE OPERATOR Unavailable Unavailable Pleskach, Eden LONGWALL HEADGATE OPERATOR Unavailable Unavailable Pleskach, Eden LONGWALL HEADGATE OPERATOR Unavailable Unavailable Pleskach, Eden LONGWALL HEADGATE OPERATOR Unavailable Unavailable Luz Franz MD Unavailable Unavailable Luz Franz MD Unavailable Unavailable Luz Franz MD Unavailable Unavailable [...] Unavailable Osei, A Gladys FERRERA Unavailable Unavailable Braulio Mccarty Unavailable [phone] Braulio Mccarty Unavailable [phone] Braulio Mccarty Unavailable [phone] Braulio Mccarty Unavailable [phone] Braulio Mccarty Unavailable [phone] Braulio Mccarty Unavailable [phone] Jacob CEJA MD Unavailable Unavailable Jacob CEJA [...] Unavailable Jacob CEJA MD Unavailable Unavailable Chakraborty, [place]en Kim Unavailable Unavailable Chakraborty, [place] Kim Unavailable Unavailable Chakraborty, [place] Kim Unavailable Unavailable Chakraborty, [place] Ikm Unavailable Unavailable Chakraborty, [place] Kim Unavailable Unavailable Chakraborty, [place] Kim Unavailable Unavailable Chakraborty, [place] Kim Unavailable Unavailable Chakraborty, [place] Kim Unavailable Unavailable Chakraborty, [place] Kim Unavailable Unavailable Chakraborty, [place] Kim Unavailable Unavailable Chakraborty, [place] Kim Unavailable Unavailable Chakraborty, [place] Kim Unavailable Unavailable Chakraborty, [place] Kim Unavailable Unavailable Re-disclosure Warning The records [...] is protected by Article 27-F of the [place] [employer] Public Health law. If you continue you may have access to information: Regarding HIV / AIDS; Provided by facilities licensed or operated by the [place] [facility] Office of Mental Health; or Provided by the [place] [facility] Office for People With Developmental Disabilities. If such information is present, then the following [facility] mandated warning applies: This information has been [...] law may result in a fine or retirement sentence or both. A general authorization for the release of medical or other information is NOT sufficient authorization for further disc losure. Allergies and Adverse Reactions Type Description Substance Reaction Status Data Source(s ) Allergy to substance Allergy to substance Allergy to substance JILLIAN ([facility]) Allergy to substance Allergy to substance Allergy to substance JILLIAN ([facility]) Family History Family Member Name Family Member Gender Family Member Status Date o f Status Description Data Source(s) Unknown Male Problem MEDENT ([facility]) Unknown Female Problem [facility] ([facility]) Unknown Unknown Problem MEDENT ([facility]) Unknown Female Problem MEDENT ([facility]) Encounters Encounter Providers Location Date Indications Data Source(s ) Outpatient Attender: Shaina JORGE SJP.RAZ-SJPALCIDES 2020 12:00:00 AM EST - 02/28/2021 03:01:42 PM EST [facility] Outpatient Attender: Elinor Leung MD Main office - [place] 02/23/2021 07:30:00 AM EST MEDENT ([facility]) Outpatient [address] [facility] [place] [address] 02/22/2021 12:00:00 AM EST eCW1 (Critical access hospital) Outpatient Attender: Eden Camara [facility] Main Office 02/19/2021 0 3:30:00 PM EST MEDENT ([facility] Outpatient Attender: Gladys Franz MD Main Office 02/05/2021 08:00:0 0 AM EDT MEDENT ([facility] Outpatient [facility] [facility] [id number] 01/17/2021 12:00:00 AM EDT eCW1 (Critical access hospital) Outpatient Attender: Eden Camara [facility] Main Office 12/15/2020 1 2:15:00 PM EDT MEDENT ([facility] Outpatient Attender: Gladys Franz MD Main Office 12/12/2020 02:00:0 0 PM EDT MEDENT ([facility] Outpatient Attender: Gladys Franz MD Main Office 11/15/2020 11:15:0 0 AM EDT MEDENT ([facility] Outpatient Attender: KEVIN Layne/Wale/Guy fairbanks/Shannan 10/11/2020 10:30:00 AM EDT MEDENT ([facility]) Unknown [address] [facility] [address] 09/08/2020 12:00:00 AM EDT eCW1 (Critical access hospital) Outpatient Attender: Gladys Franz MD Main Office 08/29/2020 03:30:0 0 PM EDT MEDENT ([facility] Outpatient Attender: lGadys Franz MD Main Office 08/25/2020 10:45:0 0 AM EDT MEDENT ([facility] Office Visit Attender: Elinor Leung MD Main office - [place] 08/18/2020 09:00:00 AM EDT MEDENT ([facility] ) Outpatient Attender: Gladys Franz MD Main Office 08/15/2020 01:30:0 0 PM EDT MEDENT ([facility] ANJUM HeC: [address] [place] [address], Ph. Attender: Kim Chakraborty [facility] 08/15/2020 12:00:00 AM EDT JILLIAN ([facility]) ANJUM HeC: [address] [place] [address], Ph. Attender: Kim Chakraborty [facility] 07/18/2020 12:00:00 AM EDT JILLIAN ([facility]) ANJUM HeC: [address] [place] [address], Ph. Attender: Kim Palmer [facility] 07/18/2020 12:00:00 AM EDT JILLIAN ([facility]) Outpatient Attender: Regina Gagnon PA-C Main Office 07/10/2020 09:45:00 AM EDT MEDENT ([facility] Outpatient Attender: Braulio Mccarty 07/05 05:56:26 PM EDT - 07/05/2020 07:52:20 PM EDT DocuTap ([facility] ) Outpatient Attender: Regina Gagnon PA-C Main Office 06/19/2020 09:45:00 AM EDT MEDENT ([facility] Outpatient Attender: Regina Gagnon PA-C Main Office 06/07/2020 12:45:00 PM EST MED[facility] ([facility] Outpatient [address] [facility] [id number] 05/31/2020 12:00:00 AM EST eCW1 ([facility]) Outpatient Attender: Elinor Leung MD Main office - [place] 05/25/2020 12:45:00 PM EST MEDENT ([facility] ) Outpatient Attender: Regina Gagnon PA-C Main Office 05/17/2020 12:30:00 PM EST MEDENT ([facility] Unknown [address] [facility] [id number] 05/12/2020 12:00:00 AM EST eCW1 ([facility] Outpatient [address] [facility] [id number] 05/11/2020 12:00:00 AM EST eCW1 ([facility]) Outpatient Attender: Shaina JORGE SJP.RAZ-SJP.RAZ 2020 12:00:00 AM EST - 05/03/2020 03:12:51 PM EST [facility] Unknown [address] [facility] [id number] 04/27/2020 12:00:00 AM EST eCW1 ([facility]) Outpatient [address] [facility] [id number] 04/26/2020 12:00:00 AM EST eCW1 ([facility]) Unknown [address] [facility] [id number] 04/26/2020 12:00:00 AM EST eCW1 ([facility]) TeleMedicine Phone E/M by Phys 11-[address] [place] [address] 04/24/2020 12:00:00 AM EST eCW1 ([facility]) [place] [address] [facility] [place] [address] 04/21/2020 12:00:00 AM EST eCW1 ([facility]) [place] [address] [facility] [place] [address] 04/19/2020 12:00:00 AM EST eCW1 ([facility]) [place] [address] [facility] [place] [address] 04/11/2020 12:00:00 AM EST eCW1 ([facility]) [place] [address] [facility] [place] [address] 04/10/2020 12:00:00 AM EST [facility]1 [facility] Outpatient Attender: Elinor Leung MD Main office - [place] 04/03/2020 11:00:00 AM EST MEDENT ([facility]) Outpatient [address] [facility] [place] [address] 03/29/2020 12:00:00 AM EST eCW1 ([facility] [place] [address] [facility] [place] [address] 03/27/2020 12:00:00 AM EST [facility]CW1 [facility]) [place] [address] [facility] [place] [address] 03/13/2020 12:00:00 AM EST eCW1 ([facility] Unknown [address] [facility] [place] [address] 03/10/2020 12:00:00 AM EST eCW1 ([facility]) [place] [address] [facility] [place] [address] 02/28/2020 12:00:00 AM EST eCW1 ([facility]) Outpatient [address] [facility] [place] [address] 02/18/2020 12:00:00 AM EST eCW1 ([facility] Unknown [address] [facility] [place] [address] 01/27/2020 12:00:00 AM EDT eCW1 (Critical access hospital) [place] [address] [facility] [place] [address] 01/19/2020 12:00:00 AM EDT eCW1 (Critical access hospital) Immunizations Vaccine Date Status Description Data Source(s) COVID-19 VACCINE Moderna 02/15/2021 12:00:00 AM EST completed [facility] Vaccine Series Complete: YESThis Data wa s Submitted to [facility] [employer] COVID-19, mRNA, LNP-S, PF, 100 mcg/0.5 mL dose 08/15/2020 05 :29:01 PM EDT completed .5 mL JILLIAN ([facility]) Moderna Sars-(Covid-19) vaccine, mRNA, LNP-S, PF, 100 mcg/ 0.5 mL 08/15/2020 12:00:00 AM EDT completed MEDENT ([facility] COVID-19 VACCINE Moderna 08/15/2020 12:00:00 AM EDT completed [facility] Vaccine Series Complete: YESThis Data wa s Submitted to [facility] [employer] COVID-19, mRNA, LNP-S, PF, 100 mcg/0.5 mL dose 07/18/2020 08 :34:00 AM EDT completed .5 mL JILLIAN ([facility]) Moderna Sars-(Covid-19) vaccine, mRNA, LNP-S, PF, 100 mcg/ 0.5 mL 07/18/2020 12:00:00 AM EDT completed [facility] ([facility] COVID-19 VACCINE Moderna 07/18/2020 12:00:00 AM EDT completed [facility] Vaccine Series Complete: NOThis Data was Submitted to [facility] [employer] New in 2011. IIV4 05/02/2020 11:00:00 PM EST completed [facility] ([facility] Medications Medication Brand Name Start Date Product Form Dose Route Admi nistrative Instructions Pharmacy Instructions Status Indications Reaction Description Data Source(s) 10 mg 02/23/2021 12:00:00 AM EST tablet extended release 24hr 30 TAKE ONE TABLET BY MOUTH EVERY DAY TAKE ONE TABLET BY MOUTH EVERY DAY SOLD: 03/02/2021 [facility] 24 HR Oxybutynin chloride 10 MG Extended Release Oral Tablet Oxybutynin Chloride ER 10 MG Oxybutynin Chloride ER 10 MG 02/22/2021 12:00:00 AM EST 1.0 {tablet} active Oxybutynin Chloride ER 10 MG eCW1 ([facility]) 5 mg 02/20/2021 12:00:00 AM EST capsule 30 TAKE ONE CAPSULE BY MOUTH EVERY 6 HOURS NEEDED FOR ANKLE PAIN MAXIMUM DAILY DOSE = 2 CAPSULES TAKE ONE CAPSULE BY MOUTH EVERY 6 HOURS NEEDED FOR ANKLE PAIN MAXIMUM DAILY DOSE = 2 CAPSULES SOLD: 02/22/2021 [employer] [employer] doxycycline hyclate 100 MG Oral Capsule DOXYCYCLINE HYCLATE 02/20/2021 12:00:00 AM EST capsule 20 TAKE ONE CAPSULE BY MOUTH TW ICE A DAY FOR 10 DAYS TAKE ONE CAPSULE BY MOUTH TWICE A DAY FOR 10 DAYS SOLD: 02/22/2021 [employer] doxycycline hyclate 100 MG Delayed Release Oral Tablet Doxyc ycline Hyclate 02/19/2021 12:00:00 AM EST ORAL active [facility] ([facility] 10 mg 02/05/2021 12:00:00 AM EDT tablet 32 TAKE 4 TABLETS BY MOUTH ONCE DAILY FOR 3 DAYS, THEN 3 TABLETS DAILY FOR 3 DAYS, THEN 2 TABLETS DAILY FOR 3 DAYS, THEN 1 TABLET DAILY FOR 3 DAYS, THEN 1/2 TABLET DAILY FOR 4 DAYS TAKE 4 TABLETS BY MOUTH ONCE DAILY FOR 3 DAYS, THEN 3 TABLETS DAILY FOR 3 DAYS, THEN 2 TABLETS DAILY FOR 3 DAYS, THEN 1 TABLET DAILY FOR 3 DAYS, THEN 1/2 TABLET DAILY FOR 4 DAYS SOLD: 02/05/2021 [facility] Prednisone 10 MG Oral Tablet Prednisone 02/05/2021 12:00:00 AM EDT ORAL completed MED[facility] ([facility] Azithromycin 250 MG Oral Tablet Azithromycin 02/05/2021 12:00:00 AM E DT ORAL completed [facility] ([facility] 250 mg 02/05/2021 12:00:00 AM EDT tablet 6 TAKE TWO TABLETS BY MOUTH AT ONCE ON THE FIRST DAY THEN TAKE ONE DAILY THEREAFTER TAKE TWO TABLETS BY MOUTH AT ONCE ON THE FIRST DAY THEN TAKE ONE DAILY THEREAFTER SOLD: 02/05/2021 [facility] 90 mcg/actuation 01/30/2021 12:00:00 AM EDT HFA aerosol inha ler 18 INHALE TWO PUFFS BY MOUTH EVERY 4 TO 6 HOURS NEEDED FOR WHEEZING INHALE TWO PUFFS BY MOUTH EVERY 4 TO 6 HOURS NEEDED FOR WHEEZING SOLD: 02/01/2021 [facility] 5 mg 01/19/2021 12:00:00 AM EDT capsule [...] EVERY 4 HOURS NEEDED SOLD: 11/20/2020 [facility] 90 mcg/actuation 11/16/2020 12:00:00 AM EDT [...] A DAY FOR COUGHING AND WHEEZING SOLD: 02/10/2021 [facility] 2.5 mg /3 mL (0.083 [...] DAILY DOSE = 2 TABLETS SOLD: 01/16/2021 [facility] 100 mg 2020 12:00:00 AM EDT [...] MOUTH TWICE A DAY SOLD: 08/21/2020 [facility] NITROFURANTOIN, MACROCRYSTALS 25 MG / Ni [...] BY MOUTH EVERY DAY SOLD: 06/12/2020 [facility] topiramate 200 MG Oral Tablet Topiramate 05/25/2020 12:00:00 AM EST ORAL active MEDENT ([facility] 5 mg 05/24/2020 12:00:00 AM EST capsule [...] {capsule} suspended Doxycycline Hyclate 100 MG eCW1 ([facility]) doxycycline hyclate 100 MG Oral Capsule Doxycycline Hy clate 100 MG Doxycycline Hyclate 100 MG 05/01/2020 12:00:00 AM EST 1.0 {capsule} suspended Doxycycline Hyclate 100 MG eCW1 ([facility]) doxycycline hyclate 100 MG Oral Capsule Doxycycline Hy clate 100 MG Doxycycline Hyclate 100 MG 05/01/2020 12:00:00 AM EST 1.0 {capsule} suspended Doxycycline Hyclate 100 MG eCW1 ([facility]) doxycycline hyclate 100 MG Oral Capsule Doxycycline Hy clate 100 MG Doxycycline Hyclate 100 MG 05/01/2020 12:00:00 AM EST 1.0 {capsule} active Doxycycline Hyclate 100 MG eCW1 ([facility]) doxycycline hyclate 100 MG Oral Capsule Doxycycline Hy clate 100 MG Doxycycline Hyclate 100 MG 05/01/2020 12:00:00 AM EST 1.0 {capsule} suspended Doxycycline Hyclate 100 MG eCW1 ([facility]) doxycycline hyclate 100 MG Oral Capsule Doxycycline Hy clate 100 MG Doxycycline Hyclate 100 MG 05/01/2020 12:00:00 AM EST 1.0 {capsule} suspended Doxycycline Hyclate 100 MG eCW1 ([facility]) topiramate 50 MG Oral Tablet topiramate (TOPAMAX) 50 M G tablet topiramate (TOPAMAX) 50 MG tablet 05/01/2020 12:00:00 AM EST active [facility] doxycycline hyclate 100 MG Oral Capsule Doxycycline Hy clate 100 MG Doxycycline Hyclate 100 MG 05/01/2020 12:00:00 AM EST 1.0 {capsule} suspended Doxycycline Hyclate 100 MG eCW1 ([facility]) doxycycline hyclate 100 MG Oral Capsule Doxycycline Hy clate 100 MG Doxycycline Hyclate 100 MG 05/01/2020 12:00:00 AM EST 1.0 {capsule} active Doxycycline Hyclate 100 MG eCW1 ([facility]) doxycycline hyclate 100 MG Oral Capsule DOXYCYCLINE [...] {capsule} suspended Doxycycline Hyclate 100 MG eCW1 ([facility]) Sumatriptan 100 MG Oral Tablet SUMAtriptan (IMITREX) 1 00 MG tablet SUMAtriptan (IMITREX) 100 MG tablet 04/22/2020 12:00:00 AM EST active TAKE 1/2 TO 1 TABLET BY MOUTH AT ONSET OF HEADACHE MAY REPEAT ONE AFTER 2 HOURS. MAXIMUM DAILY DOSE TWO TABLETS [facility] Oxycodone Hydrochloride 5 MG Oral Tablet Oxycodone HCl 5 MG Oxycodone HCl 5 MG 04/21/2020 12:00:00 AM EST active Oxycodone HCl 5 MG eCW1 ([facility]) Oxycodone Hydrochloride 5 MG Oral Tablet Oxycodone HCl 5 MG Oxycodone HCl 5 MG 04/21/2020 12:00:00 AM EST active Oxycodone HCl 5 MG eCW1 ([facility]) Oxycodone Hydrochloride 5 MG Oral Tablet Oxycodone HCl 5 MG Oxycodone HCl 5 MG 04/21/2020 12:00:00 AM EST active Oxycodone HCl 5 MG eCW1 ([facility]) Oxycodone Hydrochloride 5 MG Oral Tablet Oxycodone HCl 5 MG Oxycodone HCl 5 MG 04/21/2020 12:00:00 AM EST active Oxycodone HCl 5 MG eCW1 ([facility]) Oxycodone Hydrochloride 5 MG Oral Tablet oxyCODONE HCl 5 MG oxyCODONE HCl 5 MG 04/21/2020 12:00:00 AM EST active oxyCODONE HCl 5 MG eCW1 ([facility]) Oxycodone Hydrochloride 5 MG Oral Tablet Oxycodone HCl 5 MG Oxycodone HCl 5 MG 04/21/2020 12:00:00 AM EST active Oxycodone HCl 5 MG eCW1 ([facility]) Oxycodone Hydrochloride 5 MG Oral Tablet Oxycodone HCl 5 MG Oxycodone HCl 5 MG 04/21/2020 12:00:00 AM EST active Oxycodone HCl 5 MG eCW1 ([facility]) Oxycodone Hydrochloride 5 MG Oral Tablet Oxycodone HCl 5 MG Oxycodone HCl 5 MG 04/21/2020 12:00:00 AM EST active Oxycodone HCl 5 MG eCW1 ([facility]) Oxycodone Hydrochloride 5 MG Oral Tablet oxyCODONE HCl 5 MG oxyCODONE HCl 5 MG 04/21/2020 12:00:00 AM EST active oxyCODONE HCl 5 MG eCW1 ([facility]) 5 mg 04/21/2020 12:00:00 AM [...] EST active Oxycodone HCl 5 MG eCW1 ([facility]) Oxycodone Hydrochloride 5 MG Oral Tablet Oxycodone HCl 5 MG Oxycodone HCl 5 MG 04/21/2020 12:00:00 AM EST active Oxycodone HCl 5 MG eCW1 ([facility]) Alprazolam 0.5 MG Oral Tablet ALPRAZolam (XANAX) 0.5 M G tablet ALPRAZolam (XANAX) 0.5 MG tablet 04/04/2020 12:00:00 AM EST active TAKE ONE TABLET BY MOUTH 30 MINUTES BEFORE MRI SCAN MAY REPEAT ONCE NEEDED. MAXIMUM DAILY DOSE TWO TABLETS [facility] Sumatriptan 100 MG Oral Tablet Sumatriptan Succinate 04/03/2020 12:00:00 AM EST ORAL active MEDENT ( [facility]) Alprazolam 0.5 MG Oral Tablet Alprazolam 04/03/2020 12:00:00 AM EST ORAL active MEDENT ([facility]) topiramate 50 MG Oral Tablet Topiramate 04/03/2020 12:00:00 AM EST completed MEDENT ([facility]) 25 mg 03/30/2020 12:00:00 AM EST tablet [...] mo uth 2 (two) times a day [facility] Metoprolol Tartrate 25 MG Oral Tablet Metoprolol Tartrate 25 MG 03/29/2020 12:00:00 AM EST 1.0 {tablet_with_food} active Metoprolol Tartrate 25 MG eCW1 ([facility]) Metoprolol Tartrate 25 MG Oral Tablet Metoprolol Tartrate 25 MG 03/29/2020 12:00:00 AM EST 1.0 {tablet_with_food} active Metoprolol Tartrate 25 MG eCW1 ([facility]) Metoprolol Tartrate 25 MG Oral Tablet Metoprolol Tartrate 25 MG 03/29/2020 12:00:00 AM EST 1.0 {tablet_with_food} active Metoprolol Tartrate 25 MG eCW1 ([facility]) Metoprolol Tartrate 25 MG Oral Tablet Metoprolol Tartrate 25 MG 03/29/2020 12:00:00 AM EST 1.0 {tablet_with_food} active Metoprolol Tartrate 25 MG eCW1 ([facility]) Metoprolol Tartrate 25 MG Oral Tablet Metoprolol Tartrate 25 MG 03/29/2020 12:00:00 AM EST 1.0 {tablet_with_food} active Metoprolol Tartrate 25 MG eCW1 ([facility]) Metoprolol Tartrate 25 MG Oral Tablet Metoprolol Tartrate 25 MG 03/29/2020 12:00:00 AM EST 1.0 {tablet_with_food} active Metoprolol Tartrate 25 MG eCW1 ([facility]) Metoprolol Tartrate 25 MG Oral Tablet Metoprolol Tartrate 25 MG 03/29/2020 12:00:00 AM EST 1.0 {tablet_with_food} active Metoprolol Tartrate 25 MG eCW1 ([facility]) Metoprolol Tartrate 25 MG Oral Tablet Metoprolol Tartrate 25 MG 03/29/2020 12:00:00 AM EST 1.0 {tablet_with_food} active Metoprolol Tartrate 25 MG eCW1 ([facility]) Metoprolol Tartrate 25 MG Oral Tablet Metoprolol Tartrate 25 MG 03/29/2020 12:00:00 AM EST 1.0 {tablet_with_food} active Metoprolol Tartrate 25 MG eCW1 ([facility]) Metoprolol Tartrate 25 MG Oral Tablet Metoprolol Tartrate 25 MG 03/29/2020 12:00:00 AM EST 1.0 {tablet_with_food} active Metoprolol Tartrate 25 MG eCW1 ([facility]) Metoprolol Tartrate 25 MG Oral Tablet Metoprolol Tartrate 25 MG 03/29/2020 12:00:00 AM EST 1.0 {tablet_with_food} active Metoprolol Tartrate 25 MG eCW1 ([facility]) Metoprolol Tartrate 25 MG Oral Tablet Metoprolol Tartrate 25 MG 03/29/2020 12:00:00 AM EST 1.0 {tablet_with_food} active Metoprolol Tartrate 25 MG eCW1 ([facility]) Metoprolol Tartrate 25 MG Oral Tablet Metoprolol Tartrate 25 MG 03/29/2020 12:00:00 AM EST 1.0 {tablet_with_food} active Metoprolol Tartrate 25 MG eCW1 ([facility]) Metoprolol Tartrate 25 MG Oral Tablet Metoprolol Tartrate 25 MG 03/29/2020 12:00:00 AM EST 1.0 {tablet_with_food} active Metoprolol Tartrate 25 MG eCW1 ([facility]) Metoprolol Tartrate 25 MG Oral Tablet Metoprolol Tartrate 25 MG 03/29/2020 12:00:00 AM EST 1.0 {tablet_with_food} active Metoprolol Tartrate 25 MG eCW1 ([facility]) Oxycodone Hydrochloride 5 MG Oral Tablet Oxycodone HCl 5 MG Oxycodone HCl 5 MG 03/27/2020 12:00:00 AM EST active Oxycodone HCl 5 MG eCW1 ([facility]) Oxycodone Hydrochloride 5 MG Oral Tablet Oxycodone HCl 5 MG Oxycodone HCl 5 MG 03/27/2020 12:00:00 AM EST active Oxycodone HCl 5 MG eCW1 ([facility]) Oxycodone Hydrochloride 5 MG Oral Tablet Oxycodone HCl 5 MG Oxycodone HCl 5 MG 03/27/2020 12:00:00 AM EST active Oxycodone HCl 5 MG eCW1 ([facility]) Oxycodone Hydrochloride 5 MG Oral Tablet Oxycodone HCl 5 MG Oxycodone HCl 5 MG 03/27/2020 12:00:00 AM EST active Oxycodone HCl 5 MG eCW1 ([facility]) Verapamil hydrochloride 80 MG Oral Tablet verapamil (C BRANDON) 80 MG tablet verapamil (CALAN) 80 MG tablet 03/27/2020 12:00:00 AM EST 80 mg Or al active Take 80 mg by mouth 3 (three) ti mes a day [facility] Oxycodone Hydrochloride 5 MG Oral Tablet Oxycodone HCl 5 MG Oxycodone HCl 5 MG 03/27/2020 12:00:00 AM EST active Oxycodone HCl 5 MG eCW1 ([facility]) 5 mg 03/27/2020 12:00:00 AM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 Yarely Torres MD, Phone: [phone]</content>
<content>Performed at: [facility]</content>
<content>[address] [place] [id number]</content>
<content>Hogshead Opener: Thor Escobar MD, Phone: [phone]</content>
<content></content> ID Date Data Source [id number] 10/12/2020 12:15:00 PM EDT [facility] ([facility] Name Value Range Interpretation Code Description Data Lynette rce(s) Supporting Document(s) Laboratory test finding (navigational concept) Laboratory test result [facility] ([facility] <content>Normal (<60 Droplets/HPF)</cont ent>
<content></content> Laboratory test finding (navigational concept) Laboratory test result [facility] ([facility] <content>Normal (<100 Droplets/HPF)</con tent>
<content></content> ID Date Data Source [id number] 10/12/2020 12:15:00 PM EDT [facility] ([facility] Name Value Range Interpretation Code Description Data Lynette rce(s) Supporting Document(s) Lactoferrin [Presence] in Stool by Immunoassay Laboratory test result [facility] ([facility] ID Date Data Source [id number] 10/12/2020 12:15:00 PM EDT [facility] ([facility] [...] Please contact Infectious Disease Specialist with questions. Clostridium Difficile PCR Laboratory test result [facility] ([facility] ID Date Data Source [id number] 10/12/2020 10:28:00 AM EDT [facility] ([facility] Name Value Range Interpretation Code Description Data Lynette rce(s) Supporting Document(s) IgA Serum (part of Subclasses) 393 mg/dL 87-352 [facility] ([facility] Igasub2 316.7 mg/dL 73.2-301.2 [facility] ([facility] Igasub3 48.5 mg/dL 13.4-97.9 [facility] ([facility] ID Date Data Source [id number] 10/12/2020 10:28:00 AM EDT [facility] ([facility] [...] for gluten sensitive enteropathy. Performed at: - [facility] [id number] Hogshead Opener: Yarely Torres MD, Phone: [phone] Performed at: - [facility] [id number] Hogshead Opener: Thor Escobar MD, Phone: [phone] ID Date Data Source [id number] 10/12/2020 10:28:00 AM EDT [facility] ([facility]) Name Value Range Interpretation Code Description Data Lynette rce(s) Supporting Document(s) IgA Serum (part of Subclasses) 393 mg/dL 87-352 Above high gabriel l MEDENT ([facility]) Igasub2 316.7 mg/dL 73.2-301.2 Above high normal [facility] ([facility]) Igasub3 48.5 mg/dL 13.4-97.9 Normal (applies to non-numeric resul ts) [facility] ([facility]) ID Date Data Source [id number] 10/12/2020 10:28:00 AM EDT [facility] ([facility]) Name Value Range Interpretation Code Description Data Lynette rce(s) Supporting Document(s) Tissue transglutaminase IgA Ab [Units/volume] in Serum Labor atory test result 0-3 Normal (applies to non-numeric results) [facility] ([facility] Negative 0 - 3 Weak Positive 4 - 10 Positive >10 . Tissue Transglutaminase (tTG) has been identified as the endomysial antigen. Studies have demonstr- ated that endomysial IgA antibodies have over 99% specificity for gluten sensitive enteropathy. Performed at: - [facility] [id number] Hogshead Opener: Yarely Torres MD, Phone: [phone] Performed at: - [facility] [id number] Hogshead Opener: Thor Escobar MD, Phone: [phone] ID Date Data Source [id number] 10/12/2020 10:12:00 AM EDT [facility] ([facility] Name Value Range Interpretation Code Description Data Lynette rce(s) Supporting Document(s) C reactive protein [Mass/volume] in Serum or Plasma by High sensitivity method 0.66 mg/dL 0.00-0.30 [facility] ([facility] ID Date Data Source [id number] 10/12/2020 10:12:00 AM EDT [facility] ([facility] Name Value Range Interpretation Code Description Data Lynette rce(s) Supporting Document(s) Alt/SGPT 101 U/L 12-78 [facility] ([facility] Ast/Sgot 32 U/L 7-37 [facility] ([facility] Alkaline Phosphatase 123 U/L 45-117 [facility] ([facility] Bilirubin,Total 0.3 mg/dL 0.2-1.0 [facility] ([facility] Bilirubin,Direct Laboratory test result 0.0-0.2 [facility] ([facility] Total Protein 7.1 GM/DL 6.4-8.2 [facility] ([facility] Albumin 3.2 GM/DL 3.2-5.2 [facility] ([facility] Albumin/Globulin Ratio 0.8 1.2-2.2 [facility] ([facility] ID Date Data Source [id number] 10/12/2020 10:12:00 AM EDT [facility] ([facility] Name Value Range Interpretation Code Description Data Lynette rce(s) Supporting Document(s) Erythrocyte sedimentation rate by 2H Westergren method 23 mm/hr 0-2 0 [facility] ([facility] ID Date Data Source [id number] 10/12/2020 10:12:00 AM EDT [facility] ([facility] Name Value Range Interpretation Code Description Data Lynette rce(s) Supporting Document(s) White Blood Count 5.7 10 4.0-10.0 [facility] ([facility] Red Blood Count 4.96 10 4.00-5.40 [facility] ([facility] Hemoglobin 13.8 g/dL 12.0-15.5 [facility] ([facility] Mean Corpuscular Volume 87.9 fl 80.0-96.0 M EDENT ([facility] Hematocrit 43.6 % 36.0-47.0 [facility] [...] % 36.0-66.0 [facility] ([facility] [place] % 8.8 % 2.0-8.0 [facility] ([facility] Lymph % 32.3 % 24.0-44.0 [facility] ([facility] Eos % 3.0 % 0.0-3.0 [facility] ([facility] Baso % 0.5 % 0.0-1.0 [facility] ([facility] Immature Granulocyte % 0.2 % 0-3.0 [facility] ([facility] Nucleated Red Blood Cell % 0.0 % 0-0 [facility] ([facility] Neutrophils # 3.1 10 1.5-8.5 [facility] ([facility] Lymph # 1.8 10 1.5-5.0 [facility] ([facility] [place] # 0.5 10 0.0-0.8 [facility] ([facility] Eos # 0.2 10 0.0-0.5 [facility] ([facility] Baso # 0.0 10 0.0-0.2 [facility] ([facility] ID Date Data Source [id number] 10/12/2020 10:12:00 AM EDT MEDENT ([facility]) Name Value Range Interpretation Code Description Data Lynette rce(s) Supporting Document(s) Clostridium Difficile PCR Laboratory test result Normal (applies to non- numeric results) [facility] ([facility]) Nap1 027 For Cdiff PCR Laboratory test result No rmal (applies to non-numeric results) [facility] ([facility]) Clostridium difficile testing will only [...] Specialist with questions. ID Date Data Source [id number] 10/12/2020 10:12:00 AM EDT [facility] ([facility]) Name Value Range Interpretation Code Description Data Lynette rce(s) Supporting Document(s) Fats Neutral Laboratory test result Normal (applies to non -numeric results) [facility] ([facility]) <content>Normal (<60 Droplets/HPF)</cont ent>
<content></content> Fats Total Laboratory test result Normal (applies to non-n umeric results) [facility]) <content>Normal (<100 Droplets/HPF)</con tent>
<content></content> ID Date Data Source [id number] 10/12/2020 10:12:00 AM [facility]) Name Value Range Interpretation Code Description Data Lynette rce(s) Supporting Document(s) Elastase.pancreatic [Mass/mass] in Stool Laboratory test result Normal (applies to non-numeric results) [facility] <content>Result Units: ug Elast./g</cont ent>
<content>Severe Pancreatic Insufficiency: <100</content>
<content>Moderate Pancreatic Insufficiency: 100 - 200</content>
<content>Normal: >200</content>
<content>Performed at: [facility]</content>
<content>[address] [place], [place] [id number]</content>
<content>Hogshead Opener: Yarely Torres MD, Phone: [phone]</content>
<content>Performed at: [facility]</content>
<content>[address] [place], [place] [id number]</content>
<content>Hogshead Opener: Thor Escobar MD, Phone: [phone]</content>
<content></content> ID Date Data Source [id number] 10/12/2020 10:12:00 AM EDT [facility] ([facility]) Name Value Range Interpretation Code Description Data Lynette rce(s) Supporting Document(s) Lactoferrin [Presence] in Stool by Immunoassay Laboratory test r esult Normal (applies to non-numeric results) [facility] ([facility]) ID Date Data Source [id number] 10/12/2020 10:12:00 AM EDT [facility] ([facility]) Name Value Range Interpretation Code Description Data Lynette rce(s) Supporting Document(s) Alt/SGPT 101 U/L 12-78 Above high normal [facility] ([facility] Ast/Sgot 32 U/L 7-37 Normal (applies to non-numeric resul ts) [facility] ([facility]) Bilirubin,Total 0.3 mg/dL 0.2-1.0 Normal (applies to non-numeric results) [facility] ([facility]) Alkaline Phosphatase 123 U/L 45-117 Above high normal [facility] ([facility]) Total Protein 7.1 GM/DL 6.4-8.2 Normal (applies to non-numeric re sults) [facility] Bilirubin,Direct Laboratory test result 0.0-0.2 Normal ( applies to non-numeric results) [facility] ([facility]) Albumin 3.2 GM/DL 3.2-5.2 Normal (applies to non-numeric resul ts) [facility] ([facility]) Albumin/Globulin Ratio 0.8 1.2-2.2 Below low normal [facility]) ID Date Data Source [id number] 10/12/2020 10:12:00 AM EDT [facility] ([facility]) Name Value Range Interpretation Code Description Data Lynette rce(s) Supporting Document(s) Erythrocyte sedimentation rate by Westergren method 23 mm/hr 0-20 Above high normal [facility] ([facility]) C reactive protein [Mass/volume] in Serum or Plasma by High sensitivity method 0.66 mg/dL 0.00-0.30 Above high normal [facility] ([facility]) ID Date Data Source [id number] 10/12/2020 10:12:[facility] Name Value Range Interpretation Code Description Data Lynette rce(s) Supporting Document(s) Red Blood Count 4.96 10 4.00-5.40 Normal (applies to non-numeric results) [facility] ([facility]) White Blood Count 5.7 10 4.0-10.0 Normal (applies to non-numeri c results) [facility]) Mean Corpuscular Volume 87.9 fl 80.0-96.0 Normal ( applies to non-numeric results) [facility]) Hemoglobin 13.8 g/dL 12.0-15.5 Normal (applies to non-numeric resul ts) [facility]) Hematocrit 43.6 % 36.0-47.0 Normal (applies to non-numeric resul ts) [facility]) Mean Corpuscular HGB Conc 31.7 g/dL 32.0-36.5 Below low normal [facility]) Mean Corpuscular Hemoglobin 27.8 pg 27.0-33.0 Norm al (applies to non-numeric results) [facility]) Neutrophils % 55.2 % 36.0-66.0 Normal (applies to non-numeric re sults) [facility]) Platelet Count, Automated 278 10 150-450 Normal (applies to non-numeric results) [facility] Red Cell Distribution Width 12.9 % 11.5-14.5 Norm al (applies to non-numeric results) [facility] Lymph % 32.3 % 24.0-44.0 Normal (applies to non-numeric resul ts) [facility] [place] % 8.8 % 2.0-8.0 Above high normal [facility] ([facility]) Baso % 0.5 % 0.0-1.0 Normal (applies to non-numeric resul ts) [facility] ([facility]) Eos % 3.0 % 0.0-3.0 Normal (applies to non-numeric resul ts) [facility]) Nucleated Red Blood Cell % 0.0 % 0-0 Normal (applies to n on-numeric results) [facility] ([facility]) Immature Granulocyte % 0.2 % 0-3.0 Normal (applies to non-n umeric results) [facility] Neutrophils # 3.1 10 1.5-8.5 Normal (applies to non-numeric re sults) [facility] Lymph # 1.8 10 1.5-5.0 Normal (applies to non-numeric resul ts) [facility] [place] # 0.5 10 0.0-0.8 Normal (applies to non-numeric resul ts) [facility] ([facility]) Eos # 0.2 10 0.0-0.5 Normal (applies to non-numeric resul ts) [facility] ([facility]) Baso # 0.0 10 0.0-0.2 Normal (applies to non-numeric resul ts) [facility] ID Date Data Source [id number] 08/25/2020 11:16:00 AM EDT [facility] ([facility] Name Value Range Interpretation Code Description Data Lynette rce(s) Supporting Document(s) Bacteria identified in Urine by Culture Laboratory test result [facility] ([facility] FULL REPORT IN LAB NOTES ([facility]CW and [facility] ). SPECIMEN APPEARS CONTAMINATED ID Date Data Source [id number] 08/20/2020 08:21:00 PM EDT [facility] ([facility] Name Value Range Interpretation Code Description Data Lynette rce(s) Supporting Document(s) Reflex Urine Culture Laboratory test result [facility] ([facility] FULL REPORT IN LAB NOTES (eCW and [facility] ). SPECIMEN APPEARS CONTAMINATED ID Date Data Source [id number] 08/20/2020 08:21:00 PM EDT [facility] ([facility] Name Value Range Interpretation Code Description Data Lynette rce(s) Supporting Document(s) Appearance, Urine RFX Laboratory test result [facility] ([facility] Color, Urine RFX Laboratory test result [facility] ([facility] PH,Urine RFX 5.0 units 5.0-9.0 [facility] ([facility] Specific [place] Ur Auto RFX 1.029 1.002-1.035 [facility] ([facility] Protein, Urine Auto RFX Laboratory test result [facility] ([facility] Ketone, Urine [...] test result [facility] ([facility] WBC, Urine Auto RFX 24 /HPF 0-3 [facility] ([facility] RBC, Urine Auto RFX 10 /HPF 0-3 [facility] ([facility] Bacteria, Urine Auto RFX Laboratory test result [facility] ([facility] Squam Epithelial Cell Ur Aurfx 29 /HPF 0-6 [facility] ([facility] Mucus, Urine RFX Laboratory test result [facility] ([facility] Hyaline Cast, Urine Auto RFX 0 /LPF 0-1 [facility] ([facility] ID Date Data Source [id number] 07/07/2020 11:32:00 PM EDT [employer] [employer] Name Value Range Interpretation Code Description Data Lynette rce(s) Supporting Document(s) COVID-19 RT-PCR INSURANCE ACCOUNT ASSISTANT SWAB Not Detected [facility] [employer] A not detected (negative) test result fo [...] developed and its performance characteristics determined by [employer] and verified at [facility]. It has not been cleared or approved by the U.S. Food and Drug Administration for diagnostic use. This test has been authorized by FDA under an EUA for use by authorized laboratories. Results should be used in conjunction with clinical findings, and should not form the sole basis for a diagnosis or treatment decision. Methods: SARS-CoV-2 Multiplex RT-PCR Assay ID Date Data Source [id number] 07/05/2020 06:15:00 PM EDT [facility] Name Value Range Interpretation Code Description Data Lynette rce(s) Supporting Document(s) SARS-CoV-2 (COVID-19) N gene [Presence] in Respiratory specimen by JORI with probe detection NEGATIVE [facility] This lab was ordered by Charley Sequeira and reported by [facility] [employer] [facility]. ID Date Data Source [id number] 07/05/2020 12:00:00 AM EDT [facility] Name Value Range Interpretation Code Description Data Lynette rce(s) Supporting Document(s) Carestart Rapid COVID Antigen Test Negative [facility] This lab was reported by [facility]. ID Date Data Source [id number] 05/18/2020 02:28:00 PM EST [facility] ([facility] Name Value Range Interpretation Code Description Data Lynette rce(s) Supporting Document(s) Opiates [Mass/volume] in Urine Laboratory test result [facility] ([facility] Opiate test includes Codeine and Morphin e only. Performed at: [address] [id number] Hogshead Opener: Yarely Torres MD, Phone: [phone] ID Date Data Source [id number] 05/18/2020 02:28:00 PM EST [facility] ([facility] [...] Confirmation Reflex test will be sent to [facility], [address] [place]. [id number] Phencyclidine Urine Reflex Laboratory test result [facility] ([facility] ALL PRESUMPTIVE POSITIVE FINDINGS AR E UNCONFIRMED THRESHOLD IN NG/ML AMPHETAMINES 1000 BARBITURATES 200 BENZODIAZEPINES 200 CANNABINOIDS (THC) 50 COCAINE METABOLITE 300 METHADONE 300 OPIATES 300 PHENCYCLIDINE 25 RESULTS ARE FOR MEDICAL PURPOSES ONLY. FOR A LIST OF CLOSELY RELATED COMPOUNDS CALL THE LAB (X0113). URINE DRUG CLASSES THAT GIVE A POSITIVE RESULT WILL BE SENT OUT FOR QUANTITATIVE CONFIRMATION TO A REFERENCE LAB PROVIDED THERE IS A SUFFICIENT AMOUNT OF SPECIMEN REMAINING. ID Date Data Source [id number] 05/18/2020 02:22:00 PM EST [facility] ([facility] Name Value Range Interpretation Code Description Data [facility](s) Supporting Document(s) Glucose, Fasting 91 mg/dL 70-100 [...] Little GFR Left</content>
<content>ESRD GFR <15 on CORPORATE TAX PREPARER</content>
<content></content> Creatinine For GFR 0.74 mg/dL 0.55-1.30 [...] [facility] ID Date Data Source [id number] 05/18/2020 02:22:00 PM EST [facility] ([facility] Name Value Range Interpretation Code Description Data Lynette rce(s) Supporting Document(s) Triglycerides Level 147 mg/dL [facility] ([facility] HDL Cholesterol 51 mg/dL [facility] LDL Cholesterol 96 mg/dL [facility] Cholesterol Level 176 mg/dL [facility] ([facility] Non-HDL-C 125 mg/dL [facility] Cholesterol Risk Ratio 3.450 [facility] ([facility] ID Date Data Source [id number] 05/18/2020 02:22:00 PM EST [facility] ([facility] Name Value Range Interpretation Code Description Data Lynette rce(s) Supporting Document(s) Hemoglobin A1c/Hemoglobin.total in Blood 5.8 % [facility] ([facility] <content>REFERENCE RANGES:</content><br/ ><content></content>
<content><=5.6% NORMAL</content>
<content>5.7-6.4% SUGGESTS IMPAIRED GLUCOSE METABOLISM/PREDIABETIC</content>
<content>>= 6.5% ABNORMAL</content>
<content></content> Estimated Average Glucose 120 mg/dL 60-110 [facility] ([facility] ID Date Data Source [id number] 04/21/2020 01:36:00 PM EST [facility] Name Value Range Interpretation Code Description Data Lynette rce(s) Supporting Document(s) SARS coronavirus 2 RNA Not Detected [facility] [place] This lab was ordered by [facility] and reported by [facility]. ID Date Data Source [id number] 03/07/2020 09:33:00 PM EST [facility] Name Value Range Interpretation Code Description Data Lynette rce(s) Supporting Document(s) SARS coronavirus 2 RNA [facility] This lab was ordered by [facility] and reported by [facility]. Procedure Social History Code Duration Value Status Description Data Source(s ) Smoking 02/22/2021 12:00:00 AM EST Never Smoker completed Never S moker eCW1 ([facility]) Smoking 02/19/2021 12:00:00 AM EST Patient has never smoked co mpleted Patient has never smoked [facility] ([facility] Smoking 01/18/2021 12:00:00 AM EDT Never Smoker completed Never S moker eCW1 ([facility]) Smoking 08/14/2020 12:00:00 AM EDT Never Smoker completed Never S moker eCW1 ([facility]) Smoking 05/31/2020 12:00:00 AM EST Never Smoker completed Never S moker eCW1 ([facility]) Smoking 05/31/2020 12:00:00 AM EST Never Smoker completed Never S moker eCW1 ([facility]) Smoking 05/11/2020 12:00:00 AM EST Never Smoker completed Never S moker eCW1 ([facility]) Smoking 05/11/2020 12:00:00 AM EST Never Smoker completed Never S moker eCW1 ([facility]) Alcohol intake 05/03/2020 12:00:00 AM EST No completed [facility] Smoking 05/03/2020 12:00:00 AM EST Never smoker completed Never s moker [facility] Smoking 04/26/2020 12:00:00 AM EST Never Smoker completed Never S moker eCW1 ([facility]) Smoking 04/26/2020 12:00:00 AM EST Never Smoker completed Never S moker eCW1 ([facility]) Smoking 04/26/2020 12:00:00 AM EST Never Smoker completed Never S moker eCW1 ([facility]) Smoking 03/29/2020 12:00:00 AM EST Never Smoker completed Never S moker eCW1 ([facility]) Smoking 03/29/2020 12:00:00 AM EST Never Smoker completed Never S moker eCW1 ([facility]) Smoking 03/29/2020 12:00:00 AM EST Never Smoker completed Never S moker eCW1 ([facility]) Smoking 03/29/2020 12:00:00 AM EST Never Smoker completed Never S moker eCW1 ([facility]) Smoking 03/29/2020 12:00:00 AM EST Never Smoker completed Never S moker eCW1 ([facility]) Smoking 02/18/2020 12:00:00 AM EST Never Smoker completed Never S moker eCW1 ([facility]) Smoking 02/18/2020 12:00:00 AM EST Never Smoker completed Never S moker eCW1 ([facility]) Smoking 02/18/2020 12:00:00 AM EST Never Smoker completed Never S moker eCW1 ([facility]) Smoking 02/18/2020 12:00:00 AM EST Never Smoker completed Never S moker eCW1 ([facility]) Smoking 02/18/2020 12:00:00 AM EST Never Smoker completed Never S moker eCW1 ([facility]) Smoking 01/19/2020 12:00:00 AM EDT Never Smoker completed Never S moker eCW1 ([facility]) Smoking 01/19/2020 12:00:00 AM EDT Never Smoker completed Never S moker eCW1 ([facility]) Smoking 01/19/2020 12:00:00 AM EDT Never Smoker completed Never S moker eCW1 ([facility]) Vital Signs ID Date Data Source UNK Name Value Range Interpretation Code Description Data Source(s) Body weight 233 [lb_av] 233 [lb_av] eCW1 ([facility]) Body height 62 [in_i] 62 [in_i] eCW1 ([facility]) Body mass index (BMI) [Ratio] 42.61 kg/m2 42.61 kg/m2 eCW1 ([facility]) Heart rate 80 /min 80 /min eCW1 ([facility]) Respiratory rate 20 /min 20 /min eCW1 ([facility]) Body temperature 96.8 [degF] 96.8 [degF] eCW1 ( [facility]) Systolic blood pressure 126 mm[Hg] 126 mm[Hg] e CW1 ([facility]) Diastolic blood pressure 78 mm[Hg] 78 mm[Hg] eCW1 ([facility]) Diastolic blood pressure 98 mm[Hg] 98 mm[Hg] [facility] ([facility] Systolic blood pressure 138 mm[Hg] 138 mm[Hg] M EDENT ([facility] Diastolic blood pressure 87 mm[Hg] 87 mm[Hg] [facility] ([facility] Heart rate 78 /min 78 /min [facility] ([facility] Body temperature 97.3 [degF] 97.3 [degF] [facility] ([facility] Respiratory rate 20 /min 20 /min [facility] ( [facility] Body height 61.50 [in_i] 61.50 [in_i] [facility] ([facility] 5'1.50" Body weight 233.00 [lb_av] 233.00 [lb_av] [facility] T ([facility] Oxygen saturation in Arterial blood by Pulse oximetry 99 % 99 % [facility] ([facility] [place] body weight 105 [lb_av] 105 [lb_av] [facility] T ([facility] Body mass index (BMI) [Ratio] 43.3 kg/m2 43.3 k g/m2 [facility] ([facility] Systolic blood pressure 132 mm[Hg] 132 mm[Hg] M [facility] ([facility] Body weight 235 [lb_av] 235 [lb_av] eCW1 ([facility]) Body height 62 [in_i] 62 [in_i] W1 ([facility]) Body mass index (BMI) [Ratio] 42.98 kg/m2 42.98 kg/m2 eCW1 ([facility]) Systolic blood pressure 122 mm[Hg] 122 mm[Hg] e CW1 ([facility]) Diastolic blood pressure 84 mm[Hg] 84 mm[Hg] eCW1 ([facility]) Systolic blood pressure 132 mm[Hg] 132 mm[Hg] M [facility] ([facility] Diastolic blood pressure 93 mm[Hg] 93 mm[Hg] [facility] ([facility] Systolic blood pressure 119 mm[Hg] 119 mm[Hg] M [facility] ([facility] Diastolic blood pressure 75 mm[Hg] 75 mm[Hg] [facility] ([facility] Heart rate 78 /min 78 /min [facility] ([facility] Body temperature 97.5 [degF] 97.5 [degF] [facility] ([facility] Respiratory rate 16 /min 16 /min [facility] ( [facility] Body height 61.50 [in_i] 61.50 [in_i] [facility] ([facility] 5'1.50" Body weight 236.50 [lb_av] 236.50 [lb_av] MED[facility] T ([facility] Oxygen saturation in Arterial blood by Pulse oximetry 98 % 98 % [facility] ([facility] [place] body weight 105 [lb_av] 105 [lb_av] [facility] T ([facility] Body mass index (BMI) [Ratio] 44.0 kg/m2 44.0 k g/m2 [facility] ([facility] Diastolic blood pressure 80 mm[Hg] 80 mm[Hg] [facility] ([facility] Body height 61.50 [in_i] 61.50 [in_i] [facility] ([facility] 5'1.50" Body weight 236.00 [lb_av] 236.00 [lb_av] [facility] T ([facility] Systolic blood pressure 123 mm[Hg] 123 mm[Hg] EDENT ([facility] Heart rate 76 /min 76 /min [facility] ([facility] Body temperature 97.3 [degF] 97.3 [degF] [facility] ([facility] Respiratory rate 16 /min 16 /min [facility] ( [facility] [place] body weight 105 [lb_av] 105 [lb_av] MED[facility] [...] [lb_av] MED[facility] T ([facility] [place] body weight 105 [lb_av] 105 [lb_av] [facility] T ([facility] Body mass index (BMI) [Ratio] 43.2 kg/m2 43.2 k g/m2 [facility] ([facility] Systolic blood pressure 130 mm[Hg] 130 mm[Hg] [facility] Diastolic blood pressure 88 mm[Hg] 88 mm[Hg] [facility] ([facility]) Body height 65 [in_i] 65 [in_i] [facility] ([facility]) 5'5" Body weight 230.00 [lb_av] 230.00 [lb_av] [facility] T ([facility]) Body mass index (BMI) [Ratio] 38.3 kg/m2 38.3 k g/m2 [facility] ([facility]) [place] body weight 125 [lb_av] 125 [lb_av] [facility] T ([facility]) Body weight 104.328 kg 104.328 [facility] Body surface area Derived from formula 2.10 m2 2.10 m2 [facility] Respiratory rate 18 /min 18 /min [facility] ( [facility] Systolic blood pressure 112 mm[Hg] 112 mm[Hg] [...] 98 % [facility] ([facility] [place] body weight 105 [lb_av] 105 [lb_av] MEDEN [...] mm[Hg] M EDENT ([facility] Oxygen saturation in Arterial blood by Pulse oximetry 98 % 98 % [facility] ([facility] [place] body weight 105 [lb_av] 105 [lb_av] [facility] T ([facility] Body mass index (BMI) [Ratio] 43.6 kg/m2 43.6 k g/m2 [facility] ([facility] Diastolic blood pressure 72 mm[Hg] 72 mm[Hg] [facility] ([facility] Heart rate 85 /min 85 /min [facility] ([facility] Body temperature 97.3 [degF] 97.3 [degF] [facility] ([facility] Respiratory rate 17 /min 17 /min [facility] ( [facility] Body height 61.50 [in_i] 61.50 [in_i] [facility] ([facility] 5'1.50" Heart rate 80 /min 80 /min [facility] [...] [lb_av] [facility] T ([facility] [place] body weight 105 [lb_av] 105 [lb_av] [facility] T ([facility] Body mass index (BMI) [Ratio] 43.2 kg/m2 43.2 k g/m2 [facility] ([facility] Systolic blood pressure 110 mm[Hg] 110 mm[Hg] M EDENT ([facility] Systolic blood pressure [...] [facility] ([facility] Body weight 235.38 [lb_av] 235.38 [lb_av] [facility] T ([facility] [place] body weight 105 [lb_av] 105 [lb_av] MED[facility] [...] 97 % [facility] ([facility] [place] body weight 105 [lb_av] 105 [lb_av] [facility] T ([facility] Body mass index (BMI) [Ratio] 43.2 kg/m2 43.2 k g/m2 [facility] ([facility] Body weight 235 [lb_av] 235 [lb_av] eCW1 ([facility]) Body mass index (BMI) [Ratio] 42.98 kg/m2 42.98 kg/m2 W1 ([facility]) Systolic blood pressure 115 mm[Hg] 115 mm[Hg] e CW1 ([facility]) Diastolic blood pressure 74 mm[Hg] 74 mm[Hg] eCW1 ([facility]) Body weight 106.59 kg 106.59 kg W1 ([facility]) Body height 62 [in_i] 62 [in_i] eCW1 ([facility]) Respiratory rate 18 /min 18 /min [facility] ( [facility] Body height 61.50 [in_i] 61.50 [in_i] [facility] ([facility] 5'1.50" Body weight 237.50 [lb_av] 237.50 [lb_av] [facility] T ([facility] Oxygen saturation in Arterial blood by Pulse oximetry 98 % 98 % [facility] ([facility] [place] body weight 105 [lb_av] 105 [lb_av] MED[facility] [...] [facility] Body weight [lb_av] eCW1 ([facility]) Body height 62 [in_i] 62 [in_i] eCW1 ([facility]) Body mass index (BMI) [Ratio] 43.71 kg/m2 43.71 kg/m2 eCW1 ([facility]) Heart rate 90 /min 90 /min eCW1 ([facility]) Respiratory rate 20 /min 20 /min eCW1 ([facility]) Body temperature 97.3 [degF] 97.3 [degF] eCW1 ( [facility]) Systolic blood pressure 132 mm[Hg] 132 mm[Hg] e CW1 ([facility]) Diastolic blood pressure 80 mm[Hg] 80 mm[Hg] eCW1 ([facility]) Systolic blood pressure 114 mm[Hg] 114 mm[Hg] [facility] Diastolic blood pressure 74 mm[Hg] 74 mm[Hg] [facility] Oxygen saturation in Arterial blood by Pulse oximetry 98 % 98 % [facility] Heart rate 89 /min 89 /min [facility] Body height 165.1 cm 165.1 cm [facility] Body weight 107.049 kg 107.049 kg [facility] Body mass index (BMI) [Ratio] 39.27 kg/m2 39.27 kg/m2 [facility] Body weight 239 [lb_av] 239 [lb_av] eCW1 ([facility]) Body height 62 [in_i] 62 [in_i] eCW1 ([facility]) Body mass index (BMI) [Ratio] 43.71 kg/m2 43.71 kg/m2 eCW1 ([facility]) Heart rate 106 /min 106 /min eCW1 ([facility]) Respiratory rate 20 /min 20 /min eCW1 ([facility]) Body temperature 97.7 [degF] 97.7 [degF] eCW1 ( [facility]) Systolic blood pressure 136 mm[Hg] 136 mm[Hg] e CW1 ([facility]) Diastolic blood pressure 86 mm[Hg] 86 mm[Hg] eCW1 ([facility]) Body weight 245 [lb_av] 245 [lb_av] eCW1 ([facility]) Body height 62 [in_i] 62 [in_i] eCW1 ([facility]) Body mass index (BMI) [Ratio] 44.81 kg/m2 44.81 kg/m2 eCW1 ([facility]) Systolic blood pressure 130 mm[Hg] 130 mm[Hg] M EDENT ([facility] ) Diastolic blood pressure 80 mm[Hg] 80 mm[Hg] [facility] ([facility] ) Heart rate 70 /min 70 /min [facility] ([facility] ) Respiratory rate 14 /min 14 /min [facility] ( [facility] ) Body height 65 [in_i] 65 [in_i] [facility] ([facility], ) 5'5" Body weight 240.00 [lb_av] 240.00 [lb_av] MEDEN T ([facility], ) Body mass index (BMI) [Ratio] 39.9 kg/m2 39.9 k g/m2 [facility] ([facility] ) [place] body weight 125 [lb_av] 125 [lb_av] MEDEN T ([facility] ) Body weight 245 [lb_av] 245 [lb_av] eCW1 ([facility]) Body height 62 [in_i] 62 [in_i] eCW1 ([facility]) Body mass index (BMI) [Ratio] 44.81 kg/m2 44.81 kg/m2 eCW1 ([facility]) Heart rate 100 /min 100 /min eCW1 ([facility]) Respiratory rate 20 /min 20 /min eCW1 ([facility]) Body temperature 96.7 [degF] 96.7 [degF] eCW1 ( [facility]) Systolic blood pressure 134 mm[Hg] 134 mm[Hg] e CW1 ([facility]) Diastolic blood pressure 88 mm[Hg] 88 mm[Hg] eCW1 ([facility]) Body weight 244.6 [lb_av] 244.6 [lb_av] eCW1 ([facility]) Body height 62 [in_i] 62 [in_i] eCW1 ([facility]) Body mass index (BMI) [Ratio] 44.73 kg/m2 44.73 kg/m2 eCW1 ([facility]) Heart rate 73 /min 73 /min eCW1 ([facility]) Respiratory rate 18 /min 18 /min eCW1 ([facility]) Body temperature 96.7 [degF] 96.7 [degF] eCW1 ( [facility]) Body weight 244.2 [lb_av] 244.2 [lb_av] eCW1 ([facility]) Body height 62 [in_i] 62 [in_i] eCW1 ([facility]) Body mass index (BMI) [Ratio] 44.66 kg/m2 44.66 kg/m2 eCW1 ([facility]) Heart rate 98 /min 98 /min eCW1 ([facility]) Respiratory rate 18 /min 18 /min eCW1 ([facility]) Body temperature 98.3 [degF] 98.3 [degF] eCW1 ( [facility]) Systolic blood pressure 130 mm[Hg] 130 mm[Hg] e CW1 ([facility]) Diastolic blood pressure 80 mm[Hg] 80 mm[Hg] eCW1 ([facility]) Patient Treatment Plan of Care Planned Activity Planned Date Details Description Data Source (s) 24 HR Oxybutynin chloride 10 MG Extended Release Oral Tablet 02/22/2021 12:00:00 AM EST eCW1 ([facility]) doxycycline hyclate 100 MG Oral Capsule 05/01/2020 12:00:00 AM EST eCW1 ([facility]) topiramate 50 MG Oral Tablet 05/01/2020 12:00:00 AM EST [facility] doxycycline hyclate 100 MG Oral Capsule 05/01/2020 12:00:00 AM EST eCW1 ([facility]) Sumatriptan 100 MG Oral Tablet 04/22/2020 12:00:00 AM EST [facility] Oxycodone Hydrochloride 5 MG Oral Tablet 04/21/2020 12:00:00 AM EST eCW1 ([facility]) Alprazolam 0.5 MG Oral Tablet 04/04/2020 12:00:00 AM EST [facility] Metoprolol Tartrate 25 MG Oral Tablet 03/30/2020 12:00:00 AM EST [facility] Oxycodone Hydrochloride 5 MG Oral Tablet 03/27/2020 12:00:00 AM EST eCW1 ([facility]) Verapamil hydrochloride 80 MG Oral Tablet 03/27/2020 12:00:00 AM ES [facility] Prednisone 20 MG Oral Tablet 03/13/2020 12:00:00 AM EST eCW1 ([facility]) Prednisone 20 MG Oral Tablet 03/13/2020 12:00:00 AM EST eCW1 ([facility]) Furosemide 20 MG Oral Tablet 03/11/2020 12:00:00 AM EST [facility] Oxycodone Hydrochloride 5 MG Oral Tablet 02/28/2020 12:00:00 AM EST eCW1 ([facility]) Oxycodone Hydrochloride 5 MG Oral Tablet 02/28/2020 12:00:00 AM EST eCW1 ([facility]) Oxycodone Hydrochloride 5 MG Oral Tablet 02/28/2020 12:00:00 AM EST eCW1 ([facility]) Oxycodone Hydrochloride 5 MG Oral Tablet 01/27/2020 12:00:00 AM EDT eCW1 ([facility]) Oxycodone Hydrochloride 5 MG Oral Tablet 01/27/2020 12:00:00 AM EDT eCW1 ([facility]) Oxycodone Hydrochloride 5 MG Oral Tablet 01/27/2020 12:00:00 AM EDT eCW1 ([facility]) Verapamil hydrochloride 80 MG Oral Tablet 01/19/2020 12:00:00 AM ED T eCW1 ([facility]) Verapamil hydrochloride 80 MG Oral Tablet 01/19/2020 12:00:00 AM ED T eCW1 ([facility]) Verapamil hydrochloride 80 MG Oral Tablet 01/19/2020 12:00:00 AM ED T eCW1 ([facility]) Dicyclomine Hydrochloride 10 MG Oral Capsule [facility] Acetaminophen 325 MG / Hydrocodone Bitartrate 5 MG Oral Tablet [facility] atorvastatin 80 MG Oral Tablet [facility] meloxicam 15 MG Oral Tablet [facility]
--- OUTSIDE RECORDS SUMMARY | 2021-03-18 15:05 | CCD ---
Author Author [facility] Organization [facility] Address Unknown Phone Unavailable Care Team Providers Care Medical Operations Supervisor Name Role Phone Kocan, J Shaina ASSISTANT BANQUET MANAGER Unavailable Unavailable Kocan, J Shaina ASSISTANT BANQUET MANAGER Unavailable Unavailable Kocan, J Shaina ASSISTANT BANQUET MANAGER Unavailable Unavailable Kocan, J Shaina ASSISTANT BANQUET MANAGER Unavailable Unavailable Kocan, J Shaina ASSISTANT BANQUET MANAGER Unavailable Unavailable Kocan, J Shaina ASSISTANT BANQUET MANAGER Unavailable Unavailable Kocan, J Shaina ASSISTANT BANQUET MANAGER Unavailable Unavailable Kocan, J Shaina ASSISTANT BANQUET MANAGER Unavailable Unavailable Kocan, J Shaina ASSISTANT BANQUET MANAGER Unavailable Unavailable Kocan, J Shaina ASSISTANT BANQUET MANAGER Unavailable Unavailable Kocan, J Shaina ASSISTANT BANQUET MANAGER Unavailable Unavailable Kocan, J Shaina ASSISTANT BANQUET MANAGER Unavailable Unavailable Kocan, J Shaina ASSISTANT BANQUET MANAGER Unavailable Unavailable Kocan, J Shaina ASSISTANT BANQUET MANAGER Unavailable Unavailable Kocan, J Shaina ASSISTANT BANQUET MANAGER Unavailable Unavailable Petrancosta, [place] Regina PA-C Unavailable Unavailabl e Petrancosta, [place] Regina PA-C Unavailable Unavailabl e Petrancosta, [place] Regina PA-C Unavailable Unavailabl e Petrancosta, [place] Regina PA-C Unavailable Unavailabl e Petrancosta, [place] Regina PA-C Unavailable Unavailabl e Petrancosta, [place] Regina PA-C Unavailable Unavailabl e Petrancosta, [place] Regina PA-C Unavailable Unavailabl e Petrancosta, [place] Regina PA-C Unavailable Unavailabl e Petrancosta, [place] Regina PA-C Unavailable Unavailabl e Petrancosta, [place] Regina PA-C Unavailable Unavailabl e Petrancosta, [place] Regina PA-C Unavailable Unavailabl e Petrancosta, [place] Regina PA-C Unavailable Unavailabl e Petrancosta, [place] Regina PA-C Unavailable Unavailabl e Petrancosta, [place] Regina PA-C Unavailable Unavailabl e Petrancosta, [place] Regina PA-C Unavailable Unavailabl e Petrancosta, [place] Regina PA-C Unavailable Unavailabl e Petrancosta, [place] Regina PA-C Unavailable Unavailabl e Petrancosta, [place] Regina PA-C Unavailable Unavailabl e Petrancosta, [place] Regina PA-C Unavailable Unavailabl e Petrancosta, [place] Regina PA-C Unavailable Unavailabl e Petrancosta, [place] Regina PA-C Unavailable Unavailabl e Petrancosta, [place] Regina PA-C Unavailable Unavailabl e Petrancosta, [place] Regina PA-C Unavailable Unavailabl e Petrancosta, [place] Regina PA-C Unavailable Unavailabl e Petrancosta, [place] Regina PA-C Unavailable Unavailabl e Elinor Leung [...] Ali, Elinor MD Unavailable Unavailable Pleskach, Eden MANAGER LAND Unavailable Unavailable Pleskach, Eden MANAGER LAND Unavailable Unavailable Pleskach, Eden MANAGER LAND Unavailable Unavailable Pleskach, Eden MANAGER LAND Unavailable Unavailable Pleskach, Eden MANAGER LAND Unavailable Unavailable Pleskach, Eden MANAGER LAND Unavailable Unavailable Pleskach, Eden MANAGER LAND Unavailable Unavailable Pleskach, Eden MANAGER LAND Unavailable Unavailable Pleskach, Eden MANAGER LAND Unavailable Unavailable Pleskach, Eden MANAGER LAND Unavailable Unavailable Pleskach, Eden MANAGER LAND Unavailable Unavailable Pleskach, Eden MANAGER LAND Unavailable Unavailable Pleskach, Eden MANAGER LAND Unavailable Unavailable Pleskach, Eden MANAGER LAND Unavailable Unavailable Pleskach, Eden MANAGER LAND Unavailable Unavailable Pleskach, Eden MANAGER LAND Unavailable Unavailable Pleskach, Eden MANAGER LAND Unavailable Unavailable Pleskach, Eden MANAGER LAND Unavailable Unavailable Pleskach, Eden MANAGER LAND Unavailable Unavailable Pleskach, Eden MANAGER LAND Unavailable Unavailable Pleskach, Eden MANAGER LAND Unavailable Unavailable Pleskach, Eden MANAGER LAND Unavailable Unavailable Pleskach, Eden MANAGER LAND Unavailable Unavailable Pleskach, Eden MANAGER LAND Unavailable Unavailable Pleskach, Eden MANAGER LAND Unavailable Unavailable Pleskach, Eden MANAGER LAND Unavailable Unavailable Pleskach, Eden MANAGER LAND Unavailable Unavailable Pleskach, Eden MANAGER LAND Unavailable Unavailable Pleskach, Eden MANAGER LAND Unavailable Unavailable Pleskach, Eden MANAGER LAND Unavailable Unavailable Pleskach, Eden MANAGER LAND Unavailable Unavailable Pleskach, Eden MANAGER LAND Unavailable Unavailable Pleskach, Eden MANAGER LAND Unavailable Unavailable Pleskach, Eden MANAGER LAND Unavailable Unavailable Pleskach, Eden MANAGER LAND Unavailable Unavailable Pleskach, Eden MANAGER LAND Unavailable Unavailable Pleskach, Eden MANAGER LAND Unavailable Unavailable Pleskach, Eden MANAGER LAND Unavailable Unavailable Pleskach, Eden MANAGER LAND Unavailable Unavailable Pleskach, Eden MANAGER LAND Unavailable Unavailable Pleskach, Eden MANAGER LAND Unavailable Unavailable Pleskach, Eden MANAGER LAND Unavailable Unavailable Pleskach, Eden MANAGER LAND Unavailable Unavailable Pleskach, Eden MANAGER LAND Unavailable Unavailable Luz Franz MD Unavailable Unavailable Luz Franz MD Unavailable Unavailable Luz Franz MD Unavailable Unavailable Osei A Gladys FERRERA Unavailable Unavailable Osei A Gladys FERRERA Unavailable Unavailable Osei A Gladys FERRERA Unavailable Unavailable Osei A Gladys MD Unavailable Unavailable Osei A Gladys MD Unavailable Unavailable Osei A Gladys MD Unavailable Unavailable sOei A Gladys MD Unavailable Unavailable Osei A [...] Unavailable Osei, A Gladys FERRERA Unavailable Unavailable Soei, A Gladys FERRERA Unavailable Unavailable Osei, A [...] Gladys FERRERA Unavailable Unavailable Braulio Mccarty Unavailable [phone] Braulio Mccarty Unavailable [phone] Braulio Mccarty Unavailable [phone] Braulio Mccarty Unavailable [phone] Braulio Mccarty Unavailable [phone] Braulio Mccarty Unavailable [phone] Jacob CEJA MD Unavailable Unavailable Jacob CEJA [...] Unavailable Unavailable Jacob CEJA MD Unavailable Unavailable Jcaob CEJA MD Unavailable Unavailable Jacob CEJA MD Unavailable Unavailable Jacob CEJA MD Unavailable Unavailable Jacob CEJA MD Unavailable Unavailable Jacob CEJA MD Unavailable Unavailable Jacob CEJA MD Unavailable Unavailable Jacob CEJA MD Unavailable Unavailable Jacob CEJA MD Unavailable Unavailable Jacob CEJA MD Unavailable Unavailable Jacob CEJA MD Unavailable Unavailable Chakraborty, [place] Kim Unavailable Unavailable Chakraborty, [place] Kim Unavailable Unavailable Chakraborty, [place] Kim Unavailable Unavailable Chakraborty, [place] Kim Unavailable Unavailable Chakraborty, [place] Kim Unavailable Unavailable Chakraborty, [place] Kim Unavailable Unavailable Chakraborty, [place] Kim Unavailable Unavailable Chakraborty, [place] Kim Unavailable Unavailable Chakraborty, [place] Kmi Unavailable Unavailable Chakraborty, [place] Kim Unavailable Unavailable Chakraborty, [place] Kim Unavailable Unavailable Chakraborty, [place] Kim Unavailable Unavailable Chakraborty, [place] Kim Unavailable Unavailable Re-disclosure Warning The records [...] is protected by Article 27-F of the [facility] Public Health law. If you continue you may have access to information: Regarding HIV / AIDS; Provided by facilities licensed or operated by the [facility] Office of Mental Health; or Provided by the [facility] Office for People With Developmental Disabilities. If such information is present, then the following [facility] mandated warning applies: This information [...] law may result in a fine or senior care sentence or both. A general authorization for the release of medical or other information is NOT sufficient authorization for further disc losure. Allergies and Adverse Reactions Type Description Substance Reaction Status Data Source(s ) Allergy to substance Allergy to substance Allergy to substance JILLIAN ([facility]) Allergy to substance Allergy to substance Allergy to substance JILLIAN ([facility]) Family History Family Member Name Family Member Gender Family Member Status Date o f Status Description Data Source(s) Unknown Male Problem MEDENT ([facility]) Unknown Female Problem MEDENT ([facility]) Unknown Unknown Problem MEDENT ([facility]) Unknown Female Problem MEDENT ([facility]) Encounters Encounter Providers Location Date Indications Data Source(s ) Outpatient Attender: Shaina JORGE [email or web address].[email or web address] 2020 12:00:00 AM EST - 02/28/2021 03:01:42 PM EST [facility] Outpatient Attender: Elinor Leung MD Main office - [place] 02/23/2021 07:30:00 AM EST MEDENT ([facility]) [place] [address] [facility] [address] 02/22/2021 12:00:00 AM EST eCW1 ([facility]) Outpatient Attender: Eden Camara [facility] Main Office 02/19/2021 0 3:30:00 PM EST MEDENT ([facility] Outpatient Attender: Gladys Farnz MD Main Office 02/05/2021 08:00:0 0 AM EDT MEDENT ([facility] Outpatient [facility] [facility] [id number] 01/17/2021 12:00:00 AM EDT eCW1 ([facility]) Outpatient Attender: Eden Camara [facility] Main Office 12/15/2020 1 2:15:00 PM EDT MEDENT ([facility] Outpatient Attender: Gladys Franz MD Main Office 12/12/2020 02:00:0 0 PM EDT MEDENT ([facility] Outpatient Attender: Gladys Franz MD Main Office 11/15/2020 11:15:0 0 AM EDT MEDENT ([facility] Outpatient Attender: KVEIN Layne/Wale/Guy fairbanks/Shannan 10/11/2020 10:30:00 AM EDT MEDENT ([facility]) [place] [address] [facility] [address] 09/08/2020 12:00:00 AM EDT eCW1 ([facility]) Outpatient Attender: Gladys Franz MD Main Office 08/29/2020 03:30:0 0 PM EDT MEDENT ([facility] Outpatient Attender: Gladys Franz MD Main Office 08/25/2020 10:45:0 0 AM EDT MEDENT ([facility] Office Visit Attender: Elinor Leung MD Main office - [place] 08/18/2020 09:00:00 AM EDT MEDENT ([facility] ) Outpatient Attender: Gladys Franz MD Main Office 08/15/2020 01:30:0 0 PM EDT MEDENT ([facility] ANJUM HeC: [address] [place] [address], Ph. Attender: Kim Chakraborty [facility] Medical 08/15/2020 12:00:00 AM EDT JILLIAN ([facility]) ANJUM HeC: [address] [place] [address], Ph. Attender: Kim Chakraborty [facility] Medical 07/18/2020 12:00:00 AM EDT JILLIAN ([facility]) ANJUM HeC: [address] [place] [address], Ph. Attender: Kim Palmer [facility] Medical 07/18/2020 12:00:00 AM EDT JILLIAN ([facility]) Outpatient Attender: Regina Gagnon PA-C Main Office 07/10/2020 09:45:00 AM EDT MEDENT ([facility] Outpatient Attender: Braulio Mccarty 07/05 05:56:26 PM EDT - 07/05/2020 07:52:20 PM EDT DocuTap ([facility] ) Outpatient Attender: Regina Gagnon PA-C Main Office 06/19/2020 09:45:00 AM EDT MEDENT ([facility] Outpatient Attender: Regina Gagnon PA-C Main Office 06/07/2020 12:45:00 PM EST MEDENT ([facility] Outpatient [address] [facility] [id number] 05/31/2020 12:00:00 AM EST eCW1 ([facility]) Outpatient Attender: Elinor Leung MD Main office - [place] 05/25/2020 12:45:00 PM EST MEDENT ([facility] suzy ) Outpatient Attender: Regina Gagnon PA-C Main Office 05/17/2020 12:30:00 PM EST MEDENT ([facility] Unknown [address] [facility] [id number] 05/12/2020 12:00:00 AM EST eCW1 ([facility] Outpatient [address] [facility] [id number] 05/11/2020 12:00:00 AM EST eCW1 ([facility]) Outpatient Attender: Shaina JORGE SJP.RAZ-[email or web address].RAZ 2020 12:00:00 AM EST - 05/03/2020 03:12:51 PM EST [facility] Unknown [address] [facility] [id number] 04/27/2020 12:00:00 AM EST eCW1 ([facility]) Outpatient [address] [facility] [id number] 04/26/2020 12:00:00 AM EST eCW1 ([facility]) Unknown [address] [facility] [id number] 04/26/2020 12:00:00 AM EST eCW1 ([facility]) TeleMedicine Phone E/M by Phys 11-[address] [place] [address] 04/24/2020 12:00:00 AM EST eCW1 ([facility]) [place] [address] [facility] [address] 04/21/2020 12:00:00 AM EST eCW1 ([facility]) [place] [address] [facility] [address] 04/19/2020 12:00:00 AM EST eCW1 ([facility]) [place] [address] [facility] [address] 04/11/2020 12:00:00 AM EST eCW1 ([facility]) [place] [address] [facility] [address] 04/10/2020 12:00:00 AM EST eCW1 [facility] Outpatient Attender: Elinor Leung MD Main office - [place] 04/03/2020 11:00:00 AM EST MEDENT ([facility] KIRBY almonte) Outpatient [address] [facility] [address] 03/29/2020 12:00:00 AM EST eCW1 ([facility]) [place] [address] [facility] [address] 03/27/2020 12:00:00 AM EST eCW1 ([facility]) [place] [address] [facility] [address] 03/13/2020 12:00:00 AM EST eCW1 ([facility] [place] [address] [facility] [place] [address] 03/10/2020 12:00:00 AM EST eCW1 ([facility]) Unknown [address] [facility] [place] [address] 02/28/2020 12:00:00 AM EST eCW1 ([facility]) Outpatient [address] [facility] [place] [address] 02/18/2020 12:00:00 AM EST eCW1 ([facility] Unknown [address] [facility] [place] [address] 01/27/2020 12:00:00 AM EDT eCW1 ([facility]) [place] [address] [facility] [address] 01/19/2020 12:00:00 AM EDT eCW1 ([facility]) Immunizations Vaccine Date Status Description Data Source(s) COVID-19 VACCINE Moderna 02/15/2021 12:00:00 AM EST completed [facility] Vaccine Series Complete: YESThis Data wa s Submitted to [facility] Via [employer]. COVID-19, mRNA, LNP-S, PF, 100 mcg/0.5 mL dose 08/15/2020 05 :29:01 PM EDT completed .5 mL JILLIAN ([facility]) Moderna Sars-(Covid-19) vaccine, mRNA, LNP-S, PF, 100 mcg/ 0.5 mL 08/15/2020 12:00:00 AM EDT completed MEDENT ([facility] COVID-19 VACCINE Moderna 08/15/2020 12:00:00 AM EDT completed [facility] Vaccine Series Complete: YESThis Data wa s Submitted to [facility] Via [employer]. COVID-19, mRNA, LNP-S, PF, 100 mcg/0.5 mL dose 07/18/2020 08 :34:00 AM EDT completed .5 mL JILLIAN ([facility]) Moderna Sars-(Covid-19) vaccine, mRNA, LNP-S, PF, 100 mcg/ 0.5 mL 07/18/2020 12:00:00 AM EDT completed [facility]ENT ([facility] COVID-19 VACCINE Moderna 07/18/2020 12:00:00 AM EDT completed [facility] Vaccine Series Complete: NOThis Data was Submitted to [facility] Via [employer]. New in 2011. IIV4 05/02/2020 11:00:00 PM EST completed MEDENT ([facility] Medications Medication Brand Name Start Date Product Form Dose Route Admi nistrative Instructions Pharmacy Instructions Status Indications Reaction Description Data Source(s) 10 mg 02/23/2021 12:00:00 AM EST tablet extended release 24hr 30 TAKE ONE TABLET BY MOUTH EVERY DAY TAKE ONE TABLET BY MOUTH EVERY DAY SOLD: 03/02/2021 [facility] 24 HR Oxybutynin chloride 10 MG Extended Release Oral Tablet Oxybutynin Chloride ER 10 MG Oxybutynin Chloride ER 10 MG 02/22/2021 12:00:00 AM EST 1.0 {tablet} active Oxybutynin Chloride ER 10 MG eCW1 ([facility]) 5 mg 02/20/2021 12:00:00 AM EST capsule 30 TAKE ONE CAPSULE BY MOUTH EVERY 6 HOURS NEEDED FOR ANKLE PAIN MAXIMUM DAILY DOSE = 2 CAPSULES TAKE ONE CAPSULE BY MOUTH EVERY 6 HOURS NEEDED FOR ANKLE PAIN MAXIMUM DAILY DOSE = 2 CAPSULES SOLD: 02/22/2021 [facility] doxycycline hyclate 100 MG Oral Capsule DOXYCYCLINE HYCLATE 02/20/2021 12:00:00 AM EST capsule 20 TAKE ONE CAPSULE BY MOUTH TW ICE A DAY FOR 10 DAYS TAKE ONE CAPSULE BY MOUTH TWICE A DAY FOR 10 DAYS SOLD: 02/22/2021 [facility] doxycycline hyclate 100 MG Delayed Release Oral [...] TABLET DAILY FOR 4 DAYS SOLD: 02/05/2021 [facility] Prednisone 10 MG Oral Tablet [...] {capsule} suspended Doxycycline Hyclate 100 MG eCW1 ([facility]) doxycycline hyclate 100 MG Oral Capsule Doxycycline Hy clate 100 MG Doxycycline Hyclate 100 MG 05/01/2020 12:00:00 AM EST 1.0 {capsule} suspended Doxycycline Hyclate 100 MG eCW1 ([facility]) doxycycline hyclate 100 MG Oral Capsule Doxycycline Hy clate 100 MG Doxycycline Hyclate 100 MG 05/01/2020 12:00:00 AM EST 1.0 {capsule} suspended Doxycycline Hyclate 100 MG eCW1 ([facility]) doxycycline hyclate 100 MG Oral Capsule Doxycycline Hy clate 100 MG Doxycycline Hyclate 100 MG 05/01/2020 12:00:00 AM EST 1.0 {capsule} active Doxycycline Hyclate 100 MG eCW1 ([facility]) doxycycline hyclate 100 MG Oral Capsule Doxycycline Hy clate 100 MG Doxycycline Hyclate 100 MG 05/01/2020 12:00:00 AM EST 1.0 {capsule} suspended Doxycycline Hyclate 100 MG eCW1 ([facility]) doxycycline hyclate 100 MG Oral Capsule Doxycycline Hy clate 100 MG Doxycycline Hyclate 100 MG 05/01/2020 12:00:00 AM EST 1.0 {capsule} suspended Doxycycline Hyclate 100 MG eCW1 ([facility]) topiramate 50 MG Oral Tablet topiramate (TOPAMAX) 50 M G tablet topiramate (TOPAMAX) 50 MG tablet 05/01/2020 12:00:00 AM EST active [facility] doxycycline hyclate 100 MG Oral Capsule Doxycycline Hy clate 100 MG Doxycycline Hyclate 100 MG 05/01/2020 12:00:00 AM EST 1.0 {capsule} suspended Doxycycline Hyclate 100 MG eCW1 ([facility]) doxycycline hyclate 100 MG Oral Capsule Doxycycline Hy clate 100 MG Doxycycline Hyclate 100 MG 05/01/2020 12:00:00 AM EST 1.0 {capsule} active Doxycycline Hyclate 100 MG eCW1 ([facility]) doxycycline hyclate 100 MG Oral Capsule DOXYCYCLINE [...] {capsule} suspended Doxycycline Hyclate 100 MG eCW1 ([facility]) Sumatriptan 100 MG Oral Tablet SUMAtriptan (IMITREX) 1 00 MG tablet SUMAtriptan (IMITREX) 100 MG tablet 04/22/2020 12:00:00 AM EST active TAKE 1/2 TO 1 TABLET BY MOUTH AT ONSET OF HEADACHE MAY REPEAT ONE AFTER 2 HOURS. MAXIMUM DAILY DOSE TWO TABLETS [facility] Oxycodone Hydrochloride 5 MG Oral Tablet Oxycodone HCl 5 MG Oxycodone HCl 5 MG 04/21/2020 12:00:00 AM EST active Oxycodone HCl 5 MG eCW1 ([facility]) Oxycodone Hydrochloride 5 MG Oral Tablet Oxycodone HCl 5 MG Oxycodone HCl 5 MG 04/21/2020 12:00:00 AM EST active Oxycodone HCl 5 MG eCW1 ([facility]) Oxycodone Hydrochloride 5 MG Oral Tablet Oxycodone HCl 5 MG Oxycodone HCl 5 MG 04/21/2020 12:00:00 AM EST active Oxycodone HCl 5 MG eCW1 ([facility]) Oxycodone Hydrochloride 5 MG Oral Tablet Oxycodone HCl 5 MG Oxycodone HCl 5 MG 04/21/2020 12:00:00 AM EST active Oxycodone HCl 5 MG eCW1 ([facility]) Oxycodone Hydrochloride 5 MG Oral Tablet oxyCODONE HCl 5 MG oxyCODONE HCl 5 MG 04/21/2020 12:00:00 AM EST active oxyCODONE HCl 5 MG eCW1 ([facility]) Oxycodone Hydrochloride 5 MG Oral Tablet Oxycodone HCl 5 MG Oxycodone HCl 5 MG 04/21/2020 12:00:00 AM EST active Oxycodone HCl 5 MG eCW1 ([facility]) Oxycodone Hydrochloride 5 MG Oral Tablet Oxycodone HCl 5 MG Oxycodone HCl 5 MG 04/21/2020 12:00:00 AM EST active Oxycodone HCl 5 MG eCW1 ([facility]) Oxycodone Hydrochloride 5 MG Oral Tablet Oxycodone HCl 5 MG Oxycodone HCl 5 MG 04/21/2020 12:00:00 AM EST active Oxycodone HCl 5 MG eCW1 ([facility]) Oxycodone Hydrochloride 5 MG Oral Tablet oxyCODONE HCl 5 MG oxyCODONE HCl 5 MG 04/21/2020 12:00:00 AM EST active oxyCODONE HCl 5 MG eCW1 ([facility]) 5 mg 04/21/2020 12:00:00 AM EST tablet [...] EST active Oxycodone HCl 5 MG eCW1 ([facility]) Oxycodone Hydrochloride 5 MG Oral Tablet Oxycodone HCl 5 MG Oxycodone HCl 5 MG 04/21/2020 12:00:00 AM EST active Oxycodone HCl 5 MG eCW1 ([facility]) Alprazolam 0.5 MG Oral Tablet ALPRAZolam (XANAX) 0.5 M G tablet ALPRAZolam (XANAX) 0.5 MG tablet 04/04/2020 12:00:00 AM EST active TAKE ONE TABLET BY MOUTH 30 MINUTES BEFORE MRI SCAN MAY REPEAT ONCE NEEDED. MAXIMUM DAILY DOSE TWO TABLETS [facility] Sumatriptan 100 MG Oral Tablet Sumatriptan Succinate 04/03/2020 12:00:00 AM EST ORAL active MEDENT ( [facility]) Alprazolam 0.5 MG Oral Tablet Alprazolam 04/03/2020 12:00:00 AM EST ORAL active MEDENT ([facility]) topiramate 50 MG Oral Tablet Topiramate 04/03/2020 12:00:00 AM EST completed MEDENT ([facility]) 25 mg 03/30/2020 12:00:00 [...] mo uth 2 (two) times a day [facility] Metoprolol Tartrate 25 MG Oral Tablet Metoprolol Tartrate 25 MG 03/29/2020 12:00:00 AM EST 1.0 {tablet_with_food} active Metoprolol Tartrate 25 MG eCW1 ([facility]) Metoprolol Tartrate 25 MG Oral Tablet Metoprolol Tartrate 25 MG 03/29/2020 12:00:00 AM EST 1.0 {tablet_with_food} active Metoprolol Tartrate 25 MG eCW1 ([facility]) Metoprolol Tartrate 25 MG Oral Tablet Metoprolol Tartrate 25 MG 03/29/2020 12:00:00 AM EST 1.0 {tablet_with_food} active Metoprolol Tartrate 25 MG eCW1 ([facility]) Metoprolol Tartrate 25 MG Oral Tablet Metoprolol Tartrate 25 MG 03/29/2020 12:00:00 AM EST 1.0 {tablet_with_food} active Metoprolol Tartrate 25 MG eCW1 ([facility]) Metoprolol Tartrate 25 MG Oral Tablet Metoprolol Tartrate 25 MG 03/29/2020 12:00:00 AM EST 1.0 {tablet_with_food} active Metoprolol Tartrate 25 MG eCW1 ([facility]) Metoprolol Tartrate 25 MG Oral Tablet Metoprolol Tartrate 25 MG 03/29/2020 12:00:00 AM EST 1.0 {tablet_with_food} active Metoprolol Tartrate 25 MG eCW1 ([facility]) Metoprolol Tartrate 25 MG Oral Tablet Metoprolol Tartrate 25 MG 03/29/2020 12:00:00 AM EST 1.0 {tablet_with_food} active Metoprolol Tartrate 25 MG eCW1 ([facility]) Metoprolol Tartrate 25 MG Oral Tablet Metoprolol Tartrate 25 MG 03/29/2020 12:00:00 AM EST 1.0 {tablet_with_food} active Metoprolol Tartrate 25 MG eCW1 ([facility]) Metoprolol Tartrate 25 MG Oral Tablet Metoprolol Tartrate 25 MG 03/29/2020 12:00:00 AM EST 1.0 {tablet_with_food} active Metoprolol Tartrate 25 MG eCW1 ([facility]) Metoprolol Tartrate 25 MG Oral Tablet Metoprolol Tartrate 25 MG 03/29/2020 12:00:00 AM EST 1.0 {tablet_with_food} active Metoprolol Tartrate 25 MG eCW1 ([facility]) Metoprolol Tartrate 25 MG Oral Tablet Metoprolol Tartrate 25 MG 03/29/2020 12:00:00 AM EST 1.0 {tablet_with_food} active Metoprolol Tartrate 25 MG eCW1 ([facility] [place]) Metoprolol Tartrate 25 MG Oral Tablet Metoprolol Tartrate 25 MG 03/29/2020 12:00:00 AM EST 1.0 {tablet_with_food} active Metoprolol Tartrate 25 MG eCW1 ([facility] [place]) Metoprolol Tartrate 25 MG Oral Tablet Metoprolol Tartrate 25 MG 03/29/2020 12:00:00 AM EST 1.0 {tablet_with_food} active Metoprolol Tartrate 25 MG eCW1 ([facility] [place]) Metoprolol Tartrate 25 MG Oral Tablet Metoprolol Tartrate 25 MG 03/29/2020 12:00:00 AM EST 1.0 {tablet_with_food} active Metoprolol Tartrate 25 MG eCW1 ([facility] [place]) Metoprolol Tartrate 25 MG Oral Tablet Metoprolol Tartrate 25 MG 03/29/2020 12:00:00 AM EST 1.0 {tablet_with_food} active Metoprolol Tartrate 25 MG eCW1 ([facility] [place]) Oxycodone Hydrochloride 5 MG Oral Tablet Oxycodone HCl 5 MG Oxycodone HCl 5 MG 03/27/2020 12:00:00 AM EST active Oxycodone HCl 5 MG eCW1 ([facility] [place]) Oxycodone Hydrochloride 5 MG Oral Tablet Oxycodone HCl 5 MG Oxycodone HCl 5 MG 03/27/2020 12:00:00 AM EST active Oxycodone HCl 5 MG eCW1 ([facility] [place]) Oxycodone Hydrochloride 5 MG Oral Tablet Oxycodone HCl 5 MG Oxycodone HCl 5 MG 03/27/2020 12:00:00 AM EST active Oxycodone HCl 5 MG eCW1 ([facility] [place]) Oxycodone Hydrochloride 5 MG Oral Tablet Oxycodone HCl 5 MG Oxycodone HCl 5 MG 03/27/2020 12:00:00 AM EST active Oxycodone HCl 5 MG eCW1 ([facility] [place]) Verapamil hydrochloride 80 MG Oral Tablet verapamil (C BRANDON) 80 MG tablet verapamil (CALAN) 80 MG tablet 03/27/2020 12:00:00 AM EST 80 mg Or al active Take 80 mg by mouth 3 (three) ti mes a day [facility] Oxycodone Hydrochloride 5 MG Oral Tablet Oxycodone HCl 5 MG Oxycodone HCl 5 MG 03/27/2020 12:00:00 AM EST active Oxycodone HCl 5 MG eCW1 ([facility] [place]) 5 mg 03/27/2020 12:00:00 AM EST tablet [...] 2.0 {tablets} suspended PredniSONE 20 MG eCW1 ([facility] [place]) Prednisone 20 MG Oral Tablet PredniSONE 20 MG PredniSONE 20 MG 03/13/2020 12:00:00 AM EST 2.0 {tablets} active P redniSONE 20 MG eCW1 ([facility] [place]) Prednisone 20 MG Oral Tablet PredniSONE 20 MG PredniSONE 20 MG 03/13/2020 12:00:00 AM EST 2.0 {tablets} active P redniSONE 20 MG eCW1 ([facility] [place]) Prednisone 20 MG Oral Tablet PredniSONE 20 MG PredniSONE 20 MG 03/13/2020 12:00:00 AM EST 2.0 {tablets} suspended PredniSONE 20 MG eCW1 ([facility] [place]) Prednisone 20 MG Oral Tablet PredniSONE 20 MG PredniSONE 20 MG 03/13/2020 12:00:00 AM EST 2.0 {tablets} suspended PredniSONE 20 MG eCW1 ([facility] [place]) Prednisone 20 MG Oral Tablet PredniSONE 20 MG PredniSONE 20 MG 03/13/2020 12:00:00 AM EST 2.0 {tablets} suspended PredniSONE 20 MG eCW1 ([facility] [place]) Prednisone 20 MG Oral Tablet PredniSONE 20 MG PredniSONE 20 MG 03/13/2020 12:00:00 AM EST 2.0 {tablets} suspended PredniSONE 20 MG eCW1 ([facility] [place]) Prednisone 20 MG Oral Tablet predniSONE 20 MG predniSONE 20 MG 03/13/2020 12:00:00 AM EST 2.0 {tablets} suspended predniSONE 20 MG eCW1 ([facility] [place]) Prednisone 20 MG Oral Tablet PredniSONE 20 MG PredniSONE 20 MG 03/13/2020 12:00:00 AM EST 2.0 {tablets} suspended PredniSONE 20 MG eCW1 ([facility] [place]) Prednisone 20 MG Oral Tablet PredniSONE 20 MG PredniSONE 20 MG 03/13/2020 12:00:00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 the endomysial antigen. Studies have demonstr- ated that endomysial IgA antibodies have over 99% specificity for gluten sensitive enteropathy. Performed at: - [facility] [id number] Slip Cover Cutter: Yarely Torres MD, Phone: [phone] Performed at: - [facility] [id number] Slip Cover Cutter: Thor Escobar MD, Phone: [phone] ID Date Data Source [id number] 10/12/2020 10:12:00 AM EDT [facility] ([facility] Name Value Range Interpretation Code Description Data Lynette rce(s) Supporting Document(s) C reactive protein [Mass/volume] in Serum or Plasma by High sensitivity method 0.66 mg/dL 0.00-0.30 [facility] ([facility] ID Date Data Source [id number] 10/12/2020 10:12:00 AM EDT [facility] ([facility] [...] [facility] ID Date Data Source [id number] 10/12/2020 10:12:00 AM EDT [facility] ([facility] Name Value Range Interpretation Code Description Data Lynette rce(s) Supporting Document(s) Erythrocyte sedimentation rate by 2H Westergren method 23 mm/hr 0-2 0 [facility] ([facility] ID Date Data Source [id number] 10/12/2020 10:12:00 AM EDT [facility] ([facility]ys Franz [...] Distribution Width 12.9 % 11.5-14.5 [facility] ([facility] Platelet Count, Automated 278 10 150-450 [facility] ([facility] Neutrophils % 55.2 % 36.0-66.0 [facility] ([facility] [place] % 8.8 % 2.0-8.0 [facility] ([facility] [place] [...] 10 1.5-5.0 [facility] ([facility] [place] # 0.5 10 0.0-0.8 [facility] ([facility] Eos # 0.2 10 0.0-0.5 [facility] ([facility] Baso # 0.0 10 0.0-0.2 [facility] ([facility] ID Date Data Source [id number] 10/12/2020 10:12:00 AM EDT [facility] ([facility]) Name Value Range Interpretation Code Description Data Lynette rce(s) Supporting Document(s) Clostridium Difficile PCR Laboratory test result Normal (applies to non- numeric results) [facility] ([facility]) Nap1 027 For Cdiff PCR Laboratory test result No rmal (applies to non-numeric results) [facility] ([facility]) Clostridium difficile testing will only be [...] Specialist with questions. ID Date Data Source [id number] 10/12/2020 10:12:00 AM EDT [facility] ([facility]) Name Value Range Interpretation Code Description Data Lynette rce(s) Supporting Document(s) Fats Neutral Laboratory test result Normal (applies to non -numeric results) [facility] ([facility]) <content>Normal (<60 Droplets/HPF)</cont ent>
<content></content> Fats Total Laboratory test result Normal (applies to non-n umeric results) [facility]) <content>Normal (<100 Droplets/HPF)</con tent>
<content></content> ID Date Data Source [id number] 10/12/2020 10:12:00 AM [facility]) Name Value Range Interpretation Code Description Data Lynette rce(s) Supporting Document(s) Elastase.pancreatic [Mass/mass] in Stool Laboratory test result Normal (applies to non-numeric results) [facility] <content>Result Units: ug Elast./g</cont ent>
<content>Severe Pancreatic Insufficiency: <100</content>
<content>Moderate Pancreatic Insufficiency: 100 - 200</content>
<content>Normal: >200</content>
<content>Performed at: [facility]</content>
<content>[address], [place] [id number]</content>
<content>Slip Cover Cutter: Yaerly Torres MD, Phone: [phone]</content>
<content>Performed at: [facility]</content>
<content>[address], [place] [id number]</content>
<content>Slip Cover Cutter: Thor Escobar MD, Phone: [phone]</content>
<content></content> ID Date Data Source [id number] 10/12/2020 10:12:00 AM EDT [facility] ([facility]) Name Value Range Interpretation Code Description Data Lynette rce(s) Supporting Document(s) Lactoferrin [Presence] in Stool by Immunoassay Laboratory test r esult Normal (applies to non-numeric results) [facility] ([facility]) ID Date Data Source [id number] 10/12/2020 10:12:00 AM EDT [facility] ([facility]) Name Value Range Interpretation Code Description Data Lynette rce(s) Supporting Document(s) Alt/SGPT 101 U/L 12-78 Above high normal [facility] ([facility], ) Ast/Sgot 32 U/L 7-37 Normal (applies to non-numeric resul ts) [facility] ([facility]) Bilirubin,Total 0.3 mg/dL 0.2-1.0 Normal (applies to non-numeric results) [facility] ([facility]) Alkaline Phosphatase 123 U/L 45-117 Above high normal [facility] ([facility]) Total Protein 7.1 GM/DL 6.4-8.2 Normal (applies to non-numeric re sults) [facility] Bilirubin,Direct Laboratory test result 0.0-0.2 Normal ( applies to non-numeric results) [facility] ([facility]) Albumin 3.2 GM/DL 3.2-5.2 Normal (applies to non-numeric resul ts) [facility] ([facility]) Albumin/Globulin Ratio 0.8 1.2-2.2 Below low normal [facility]) ID Date Data Source [id number] 10/12/2020 10:12:00 AM EDT [facility] ([facility]) Name Value Range Interpretation Code Description Data Lynette rce(s) Supporting Document(s) Erythrocyte sedimentation rate by Westergren method 23 mm/hr 0-20 Above high normal [facility] ([facility]) C reactive protein [Mass/volume] in Serum or Plasma by High sensitivity method 0.66 mg/dL 0.00-0.30 Above high normal [facility] ([facility]) ID Date Data Source [id number] 10/12[facility]2020 [facility] Name Value Range Interpretation Code Description Data Lynette rce(s) Supporting Document(s) Red Blood Count 4.96 10 4.00-5.40 Normal (applies to non-numeric results) [facility] ([facility]) White Blood Count 5.7 10 4.0-10.0 Normal (applies to non-numeri c results) [facility]) Mean Corpuscular Volume 87.9 fl 80.0-96.0 Normal ( applies to non-numeric results) [facility]) Hemoglobin 13.8 g/dL 12.0-15.5 Normal (applies to non-numeric resul ts) [facility]) Hematocrit 43.6 % 36.0-47.0 Normal (applies to non-numeric resul ts) [facility]) Mean Corpuscular HGB Conc 31.7 g/dL 32.0-36.5 Below low normal [facility]) Mean Corpuscular Hemoglobin 27.8 pg 27.0-33.0 Norm al (applies to non-numeric results) [facility]) Neutrophils % 55.2 % 36.0-66.0 Normal (applies to non-numeric re sults) [facility]) Platelet Count, Automated 278 10 150-450 Normal (applies to non-numeric results) [facility] ([facility], ) Red Cell Distribution Width 12.9 % 11.5-14.5 Norm al (applies to non-numeric results) [facility] Lymph % 32.3 % 24.0-44.0 Normal (applies to non-numeric resul ts) [facility]) [place] % 8.8 % 2.0-8.0 Above high normal [facility] ([facility]) Baso % 0.5 % 0.0-1.0 Normal (applies to non-numeric resul ts) [facility] ([facility]) Eos % 3.0 % 0.0-3.0 Normal (applies to non-numeric resul ts) [facility]) Nucleated Red Blood Cell % 0.0 % 0-0 Normal (applies to n on-numeric results) [facility] ([facility]) Immature Granulocyte % 0.2 % 0-3.0 Normal (applies to non-n umeric results) [facility] Neutrophils # 3.1 10 1.5-8.5 Normal (applies to non-numeric re sults) [facility] Lymph # 1.8 10 1.5-5.0 Normal (applies to non-numeric resul ts) [facility] [place] # 0.5 10 0.0-0.8 Normal (applies to non-numeric resul ts) [facility] ([facility]) Eos # 0.2 10 0.0-0.5 Normal (applies to non-numeric resul ts) [facility] ([facility]) Baso # 0.0 10 0.0-0.2 Normal (applies to non-numeric resul ts) [facility] ID Date Data Source [id number] 08/25/2020 11:16:00 AM EDT [facility] ([facility] Name Value Range Interpretation Code Description Data Lynette rce(s) Supporting Document(s) Bacteria identified in Urine by Culture Laboratory test result [facility] ([facility] FULL REPORT IN LAB NOTES ([facility] and [facility] ). SPECIMEN APPEARS CONTAMINATED ID Date Data Source [id number] 08/20/2020 08:21:00 PM EDT [facility] ([facility] Name Value Range Interpretation Code Description Data Lynette rce(s) Supporting Document(s) Reflex Urine Culture Laboratory test result [facility] ([facility] FULL REPORT IN LAB NOTES ([facility] and [facility] ). SPECIMEN APPEARS CONTAMINATED ID Date Data Source [id number] 08/20/2020 08:21:00 PM EDT [facility] ([facility] Name Value Range Interpretation Code Description Data Lynette rce(s) Supporting Document(s) Appearance, Urine RFX Laboratory test result [facility] ([facility] Color, Urine RFX Laboratory test result [facility] ([facility] PH,Urine RFX 5.0 units 5.0-9.0 [facility] ([facility] Specific [place] Ur Auto RFX 1.029 1.002-1.035 [facility] ([facility]adys [...] [facility] ID Date Data Source [id number] 07/07/2020 11:32:00 PM EDT [facility] Name Value Range Interpretation Code Description Data Lynette rce(s) Supporting Document(s) COVID-19 RT-PCR NEON S[employer] SWAB Not Detected Josemanuel [facility] A not detected (negative) test result fo [...] developed and its performance characteristics determined by [facility] and verified at [facility]. It has not been cleared or approved by the U.S. Food and Drug Administration for diagnostic use. This test has been authorized by FDA under an EUA for use by authorized laboratories. Results should be used in conjunction with clinical findings, and should not form the sole basis for a diagnosis or treatment decision. Methods: SARS-CoV-2 Multiplex RT-PCR Assay ID Date Data Source [id number] 07/05/2020 06:15:00 PM EDT [facility] Name Value Range Interpretation Code Description Data Lynette rce(s) Supporting Document(s) SARS-CoV-2 (COVID-19) N gene [Presence] in Respiratory specimen by JORI with probe detection NEGATIVE [facility] This lab was ordered by [facility] and reported by [facility]. ID Date Data Source [id number] 07/05/2020 12:00:00 AM EDT [facility] Name Value Range Interpretation Code Description Data Lynette rce(s) Supporting Document(s) Carestart Rapid COVID Antigen Test Negative [facility] This lab was reported by [facility]. ID Date Data Source [id number] 05/18/2020 02:28:00 PM EST [facility] ([facility] Name Value Range Interpretation Code Description Data Lynette rce(s) Supporting Document(s) Opiates [Mass/volume] in Urine Laboratory test result [facility] ([facility] Opiate test includes Codeine and Morphin e only. Performed at: [address] [id number] Slip Cover Cutter: Yarely Torres MD, Phone: [phone] ID Date Data Source [id number] 05/18/2020 02:28:00 PM EST [facility] ([facility] Franz [...] Confirmation Reflex test will be sent to [facility], [address] [place]. [id number] Phencyclidine Urine Reflex Laboratory test result [facility] ([facility] ALL PRESUMPTIVE POSITIVE FINDINGS AR E UNCONFIRMED THRESHOLD IN NG/ML AMPHETAMINES 1000 BARBITURATES 200 BENZODIAZEPINES 200 CANNABINOIDS (THC) 50 COCAINE METABOLITE 300 METHADONE 300 OPIATES 300 PHENCYCLIDINE 25 RESULTS ARE FOR MEDICAL PURPOSES ONLY. FOR A LIST OF CLOSELY RELATED COMPOUNDS CALL THE LAB ([id number]). URINE DRUG CLASSES THAT GIVE A POSITIVE RESULT WILL BE SENT OUT FOR QUANTITATIVE CONFIRMATION TO A REFERENCE LAB PROVIDED THERE IS A SUFFICIENT AMOUNT OF SPECIMEN REMAINING. ID Date Data Source [id number] 05/18/2020 02:22:00 PM EST [facility] ([facility] Name Value Range Interpretation Code Description Data [facility](s) Supporting Document(s) Glucose, Fasting 91 mg/dL 70-100 [...] Little GFR Left</content>
<content>ESRD GFR <15 on MANAGER OF PRODUCT</content>
<content></content> Creatinine For GFR 0.74 mg/dL 0.55-1.30 [...] [facility] ID Date Data Source [id number] 05/18/2020 02:22:00 PM EST [facility] ([facility]adys Franz [...] [facility] ID Date Data Source [id number] 05/18/2020 02:22:00 PM EST [facility] ([facility] Name Value Range Interpretation Code Description Data Lynette rce(s) Supporting Document(s) Hemoglobin A1c/Hemoglobin.total in Blood 5.8 % [facility] ([facility] <content>REFERENCE RANGES:</content><br/ ><content></content>
<content><=5.6% NORMAL</content>
<content>5.7-6.4% SUGGESTS IMPAIRED GLUCOSE METABOLISM/PREDIABETIC</content>
<content>>= 6.5% ABNORMAL</content>
<content></content> Estimated Average Glucose 120 mg/dL 60-110 [facility] ID Date Data Source [id number] 04/21/2020 01:36:00 PM EST [facility] Name Value Range Interpretation Code Description Data Lynette rce(s) Supporting Document(s) SARS coronavirus 2 RNA Not Detected [facility] This lab was ordered by [facility] and reported by [facility]. ID Date Data Source [id number] 03/07/2020 09:33:00 PM EST [facility] Name Value Range Interpretation Code Description Data Lynette rce(s) Supporting Document(s) SARS coronavirus 2 RNA [facility] This lab was ordered by [facility] and reported by [facility]. Procedure Social History Code Duration Value Status Description Data Source(s ) Smoking 02/22/2021 12:00:00 AM EST Never Smoker completed Never S moker eCW1 ([facility]) Smoking 02/19/2021 12:00:00 AM EST Patient has never smoked co mpleted Patient has never smoked [facility] Smoking 01/18/2021 12:00:00 AM EDT Never Smoker completed Never S moker eCW1 ([facility]) Smoking 08/14/2020 12:00:00 AM EDT Never Smoker completed Never S moker eCW1 ([facility]) Smoking 05/31/2020 12:00:00 AM EST Never Smoker completed Never S moker eCW1 ([facility]) Smoking 05/31/2020 12:00:00 AM EST Never Smoker completed Never S moker eCW1 ([facility]) Smoking 05/11/2020 12:00:00 AM EST Never Smoker completed Never S moker eCW1 ([facility]) Smoking 05/11/2020 12:00:00 AM EST Never Smoker completed Never S moker eCW1 ([facility]) Alcohol intake 05/03/2020 12:00:00 AM EST No completed [facility] Smoking 05/03/2020 12:00:00 AM EST Never smoker completed Never s moker [facility] Smoking 04/26/2020 12:00:00 AM EST Never Smoker completed Never S moker eCW1 ([facility]) Smoking 04/26/2020 12:00:00 AM EST Never Smoker completed Never S moker eCW1 ([facility]) Smoking 04/26/2020 12:00:00 AM EST Never Smoker completed Never S moker eCW1 ([facility]) Smoking 03/29/2020 12:00:00 AM EST Never Smoker completed Never S moker eCW1 ([facility]) Smoking 03/29/2020 12:00:00 AM EST Never Smoker completed Never S moker eCW1 ([facility]) Smoking 03/29/2020 12:00:00 AM EST Never Smoker completed Never S moker eCW1 ([facility]) Smoking 03/29/2020 12:00:00 AM EST Never Smoker completed Never S moker eCW1 ([facility]) Smoking 03/29/2020 12:00:00 AM EST Never Smoker completed Never S moker eCW1 ([facility]) Smoking 02/18/2020 12:00:00 AM EST Never Smoker completed Never S moker eCW1 ([facility]) Smoking 02/18/2020 12:00:00 AM EST Never Smoker completed Never S moker eCW1 ([facility]) Smoking 02/18/2020 12:00:00 AM EST Never Smoker completed Never S moker eCW1 ([facility]) Smoking 02/18/2020 12:00:00 AM EST Never Smoker completed Never S moker eCW1 ([facility]) Smoking 02/18/2020 12:00:00 AM EST Never Smoker completed Never S moker eCW1 ([facility]) Smoking 01/19/2020 12:00:00 AM EDT Never Smoker completed Never S moker eCW1 ([facility]) Smoking 01/19/2020 12:00:00 AM EDT Never Smoker completed Never S moker eCW1 ([facility]) Smoking 01/19/2020 12:00:00 AM EDT Never Smoker completed Never S moker eCW1 ([facility]) Vital Signs ID Date Data Source [id number] Name Value Range Interpretation Code Description Data Source(s) Body weight 233 [lb_av] 233 [lb_av] eCW1 ([facility]) Body height 62 [in_i] 62 [in_i] eCW1 ([facility]) Body mass index (BMI) [Ratio] 42.61 kg/m2 42.61 kg/m2 eCW1 ([facility]) Heart rate 80 /min 80 /min eCW1 ([facility]) Respiratory rate 20 /min 20 /min eCW1 ([facility]) Body temperature 96.8 [degF] 96.8 [degF] eCW1 ( [facility]) Systolic blood pressure 126 mm[Hg] 126 mm[Hg] e CW1 ([facility]) Diastolic blood pressure 78 mm[Hg] 78 mm[Hg] eCW1 ([facility]) Diastolic blood pressure 87 mm[Hg] 87 mm[Hg] [facility] Systolic blood pressure 138 mm[Hg] 138 mm[Hg] M [facility] ([facility] Diastolic blood pressure 98 mm[Hg] 98 mm[Hg] [facility] ([facility] Heart rate 78 /min 78 /min [facility] Systolic blood pressure 132 mm[Hg] 132 mm[Hg] M EDENT ([facility] Body temperature 97.3 [...] 99 % [facility] ([facility] Isaban body weight 105 [lb_av] 105 [lb_av] MEDEN T ([facility] Body mass index (BMI) [Ratio] 43.3 kg/m2 43.3 k g/m2 [facility] ([facility] Body weight 235 [lb_av] 235 [lb_av] eCW1 ([facility]) Body height 62 [in_i] 62 [in_i] W1 ([facility]) Body mass index (BMI) [Ratio] 42.98 kg/m2 42.98 kg/m2 eCW1 ([facility]) Systolic blood pressure 122 mm[Hg] 122 mm[Hg] e CW1 ([facility]) Diastolic blood pressure 84 mm[Hg] 84 mm[Hg] eCW1 ([facility]) Systolic blood pressure 132 mm[Hg] 132 mm[Hg] M [facility]ENT ([facility] Oxygen saturation in Arterial blood by Pulse oximetry 98 % 98 % [facility] ([facility] [place] body weight 105 [lb_av] 105 [lb_av] MED[facility] T ([facility] Body mass index (BMI) [Ratio] 44.0 kg/m2 44.0 k g/m2 [facility] Diastolic blood pressure 93 mm[Hg] 93 mm[Hg] [facility] ([facility] Systolic blood pressure [...] [lb_av] MEDEN T ([facility] Diastolic blood pressure [...] /min MEDENT ( [facility] Isaban body weight 105 [lb_av] 105 [lb_av] MEDEN [...] 14 /min 14 /min MEDENT ( [facility] Body height 61.50 [in_i] 61.50 [in_i] MEDENT ([facility] 5'1.50" Body weight 232.50 [lb_av] 232.50 [lb_av] MEDEN T ([facility] Isaban body weight 105 [lb_av] 105 [lb_av] MEDEN T ([facility] Body mass index (BMI) [Ratio] 43.2 kg/m2 43.2 k g/m2 MEDENT ([facility] Systolic blood pressure 130 mm[Hg] 130 mm[Hg] [facility] Diastolic blood pressure 88 mm[Hg] 88 mm[Hg] MEDENT ([facility]) Body height 65 [in_i] 65 [in_i] MEDENT ([facility]) 5'5" Body weight 230.00 [lb_av] 230.00 [lb_av] MEDEN T ([facility]) Body mass index (BMI) [Ratio] 38.3 kg/m2 38.3 k g/m2 [facility] ([facility]) Isaban body weight 125 [lb_av] 125 [lb_av] MEDEN T ([facility]) Body weight 104.328 kg 104.328 [facility] Body surface area Derived from formula 2.10 m2 2.10 m2 MEDENT ([facility], ) Respiratory rate 18 /min 18 /min MEDENT ( [facility] Oxygen saturation in Arterial blood by Pulse oximetry 98 % 98 % MEDENT ([facility] Isaban body weight 105 [lb_av] 105 [lb_av] MEDEN T ([facility] Systolic blood pressure 112 [...] 72 mm[Hg] MEDENT ([facility] Oxygen saturation in Arterial blood by Pulse oximetry 98 % 98 % MEDENT ([facility] Isaban body weight 105 [lb_av] 105 [lb_av] MEDEN [...] 98 % MEDENT ([facility] Respiratory rate 16 /min 16 /min MEDENT ( [facility] Body temperature 97.6 [degF] 97.6 [degF] MEDENT ([facility] Body height 61.50 [in_i] 61.50 [in_i] MEDENT ([facility] 5'1.50" Diastolic blood pressure 69 mm[Hg] 69 mm[Hg] MEDENT ([facility] Body weight 232.38 [lb_av] 232.38 [lb_av] MEDEN T ([facility] Isaban body weight 105 [lb_av] 105 [lb_av] MEDEN [...] Body temperature 98.5 [degF] 98.5 [degF] MEDENT ([facility] Body height 61.50 [in_i] 61.50 [in_i] MEDENT ([facility] 5'1.50" Respiratory rate 18 /min 18 /min MEDENT ( [facility] Oxygen saturation in Arterial blood by Pulse oximetry 98 % 98 % MEDENT ([facility] Isaban body weight 105 [lb_av] 105 [lb_av] MEDEN T ([facility] Body mass index (BMI) [Ratio] 43.7 kg/m2 43.7 k g/m2 MEDENT ([facility] Systolic blood pressure 107 mm[Hg] 107 mm[Hg] M EDENT ([facility] Diastolic blood pressure 85 [...] 97 % MEDENT ([facility] Isaban body weight 105 [lb_av] 105 [lb_av] MEDEN T ([facility] Body mass index (BMI) [Ratio] 43.2 kg/m2 43.2 k g/m2 MEDENT ([facility] Body mass index (BMI) [Ratio] 42.98 kg/m2 42.98 kg/m2 eCW1 ([facility]) Systolic blood pressure 115 mm[Hg] 115 mm[Hg] e CW1 ([facility]) Diastolic blood pressure 74 mm[Hg] 74 mm[Hg] eCW1 ([facility]) Body weight 235 [lb_av] 235 [lb_av] eCW1 ([facility]) Body weight 106.59 kg 106.59 kg W1 ([facility]) Body height 62 [in_i] 62 [in_i] eCW1 ([facility]) Systolic blood pressure 139 mm[Hg] 139 [...] 98 % MEDENT ([facility] Isaban body weight 105 [lb_av] 105 [lb_av] MEDEN T ([facility] Body weight [lb_av] eCW1 ([facility]) Body height 62 [in_i] 62 [in_i] eCW1 ([facility]) Body mass index (BMI) [Ratio] 43.71 kg/m2 43.71 kg/m2 eCW1 ([facility]) Heart rate 90 /min 90 /min eCW1 ([facility]) Respiratory rate 20 /min 20 /min eCW1 ([facility]) Body temperature 97.3 [degF] 97.3 [degF] eCW1 ( [facility]) Systolic blood pressure 132 mm[Hg] 132 mm[Hg] e CW1 ([facility]) Diastolic blood pressure 80 mm[Hg] 80 mm[Hg] eCW1 ([facility]) Systolic blood pressure 114 mm[Hg] 114 mm[Hg] [facility] Diastolic blood pressure 74 mm[Hg] 74 mm[Hg] [facility] Oxygen saturation in Arterial blood by Pulse oximetry 98 % 98 % [facility] Heart rate 89 /min 89 /min [facility] Body height 165.1 cm 165.1 cm [facility] Body weight 107.049 kg 107.049 kg [facility] Body mass index (BMI) [Ratio] 39.27 kg/m2 39.27 kg/m2 [facility] Body weight 239 [lb_av] 239 [lb_av] eCW1 ([facility]) Body height 62 [in_i] 62 [in_i] eCW1 ([facility]) Body mass index (BMI) [Ratio] 43.71 kg/m2 43.71 kg/m2 eCW1 ([facility]) Heart rate 106 /min 106 /min eCW1 ([facility]) Respiratory rate 20 /min 20 /min eCW1 ([facility]) Body temperature 97.7 [degF] 97.7 [degF] eCW1 ( [facility]) Systolic blood pressure 136 mm[Hg] 136 mm[Hg] e CW1 ([facility]) Diastolic blood pressure 86 mm[Hg] 86 mm[Hg] eCW1 ([facility]) Body weight 245 [lb_av] 245 [lb_av] eCW1 ([facility]) Body height 62 [in_i] 62 [in_i] eCW1 ([facility]) Body mass index (BMI) [Ratio] 44.81 kg/m2 44.81 kg/m2 eCW1 ([facility]) Systolic blood pressure 130 mm[Hg] 130 mm[Hg] M EDENT ([facility], ) Diastolic blood pressure 80 mm[Hg] 80 mm[Hg] MEDENT ([facility], ) Heart rate 70 /min 70 /min MEDENT ([facility], ) Respiratory rate 14 /min 14 /min MEDENT ( [facility], ) Body height 65 [in_i] 65 [in_i] MEDENT ([facility], ) 5'5" Body weight 240.00 [lb_av] 240.00 [lb_av] MEDEN T ([facility], ) Body mass index (BMI) [Ratio] 39.9 kg/m2 39.9 k g/m2 MEDENT ([facility], ) Isaban body weight 125 [lb_av] 125 [lb_av] MEDEN T ([facility], ) Body weight 245 [lb_av] 245 [lb_av] eCW1 ([facility]) Body height 62 [in_i] 62 [in_i] eCW1 ([facility]) Body mass index (BMI) [Ratio] 44.81 kg/m2 44.81 kg/m2 eCW1 ([facility]) Heart rate 100 /min 100 /min eCW1 ([facility]) Respiratory rate 20 /min 20 /min eCW1 ([facility]) Body temperature 96.7 [degF] 96.7 [degF] eCW1 ( [facility]) Systolic blood pressure 134 mm[Hg] 134 mm[Hg] e CW1 ([facility]) Diastolic blood pressure 88 mm[Hg] 88 mm[Hg] eCW1 ([facility]) Body weight 244.6 [lb_av] 244.6 [lb_av] eCW1 ([facility]) Body height 62 [in_i] 62 [in_i] eCW1 ([facility]) Body mass index (BMI) [Ratio] 44.73 kg/m2 44.73 kg/m2 eCW1 ([facility]) Heart rate 73 /min 73 /min eCW1 ([facility]) Respiratory rate 18 /min 18 /min eCW1 ([facility]) Body temperature 96.7 [degF] 96.7 [degF] eCW1 ( [facility]) Body weight 244.2 [lb_av] 244.2 [lb_av] eCW1 ([facility]) Body height 62 [in_i] 62 [in_i] eCW1 ([facility]) Body mass index (BMI) [Ratio] 44.66 kg/m2 44.66 kg/m2 eCW1 ([facility]) Heart rate 98 /min 98 /min eCW1 ([facility]) Respiratory rate 18 /min 18 /min eCW1 ([facility]) Body temperature 98.3 [degF] 98.3 [degF] eCW1 ( [facility]) Systolic blood pressure 130 mm[Hg] 130 mm[Hg] e CW1 ([facility]) Diastolic blood pressure 80 mm[Hg] 80 mm[Hg] eCW1 ([facility]) Patient Treatment Plan of Care Planned Activity Planned Date Details Description Data Source (s) 24 HR Oxybutynin chloride 10 MG Extended Release Oral Tablet 02/22/2021 12:00:00 AM EST eCW1 ([facility]) doxycycline hyclate 100 MG Oral Capsule 05/01/2020 12:00:00 AM EST eCW1 ([facility]) topiramate 50 MG Oral Tablet 05/01/2020 12:00:00 AM EST [facility] doxycycline hyclate 100 MG Oral Capsule 05/01/2020 12:00:00 AM EST eCW1 ([facility]) Sumatriptan 100 MG Oral Tablet 04/22/2020 12:00:00 AM EST [facility] Oxycodone Hydrochloride 5 MG Oral Tablet 04/21/2020 12:00:00 AM EST eCW1 ([facility]) Alprazolam 0.5 MG Oral Tablet 04/04/2020 12:00:00 AM EST [facility] Metoprolol Tartrate 25 MG Oral Tablet 03/30/2020 12:00:00 AM EST [facility] Oxycodone Hydrochloride 5 MG Oral Tablet 03/27/2020 12:00:00 AM EST eCW1 ([facility]) Verapamil hydrochloride 80 MG Oral Tablet 03/27/2020 12:00:00 AM ES [facility] Prednisone 20 MG Oral Tablet 03/13/2020 12:00:00 AM EST eCW1 ([facility]) Prednisone 20 MG Oral Tablet 03/13/2020 12:00:00 AM EST eCW1 ([facility]) Furosemide 20 MG Oral Tablet 03/11/2020 12:00:00 AM EST [facility] Oxycodone Hydrochloride 5 MG Oral Tablet 02/28/2020 12:00:00 AM EST eCW1 ([facility]) Oxycodone Hydrochloride 5 MG Oral Tablet 02/28/2020 12:00:00 AM EST eCW1 ([facility]) Oxycodone Hydrochloride 5 MG Oral Tablet 02/28/2020 12:00:00 AM EST eCW1 ([facility]) Oxycodone Hydrochloride 5 MG Oral Tablet 01/27/2020 12:00:00 AM EDT eCW1 ([facility]) Oxycodone Hydrochloride 5 MG Oral Tablet 01/27/2020 12:00:00 AM EDT eCW1 ([facility]) Oxycodone Hydrochloride 5 MG Oral Tablet 01/27/2020 12:00:00 AM EDT eCW1 ([facility]) Verapamil hydrochloride 80 MG Oral Tablet 01/19/2020 12:00:00 AM ED T eCW1 ([facility]) Verapamil hydrochloride 80 MG Oral Tablet 01/19/2020 12:00:00 AM ED T eCW1 ([facility]) Verapamil hydrochloride 80 MG Oral Tablet 01/19/2020 12:00:00 AM ED T eCW1 ([facility]) Dicyclomine Hydrochloride 10 MG Oral Capsule [facility] Acetaminophen 325 MG / Hydrocodone Bitartrate 5 MG Oral Tablet [facility] atorvastatin 80 MG Oral Tablet [facility] meloxicam 15 MG Oral Tablet [facility]
== END 2021-03-18 14:54 | disposition left against medical advice (07) ==
LOC: M ED 13:30
DX: Z12.31 Encounter for screening mammogram for malignant neoplasm of breast (principal)

== ENCOUNTER 2021-03-20 14:25 | Emergency (ER) | payer OTHER, MEDICAID ==
[~2021-03-20] VITALS: Ht 162.6 cm; Wt 104.3 kg
[2021-03-20] MEDS ORDERED: OXYB5TAB10 PO (17:19)
[2021-03-20 17:21] LABS: BASO % 0.6 % (0.0-1.0); EOS # 0.2 10^3/uL (0.0-0.5); EOS % 2.8 % (0.0-3.0); HEMATOCRIT 43.8 % (36.0-47.0); HEMOGLOBIN 14.3 g/dl (12.0-15.5); LYMPH # 2.3 10^3/uL (1.5-5.0); LYMPH % 32.4 % (24.0-44.0); MEAN CORPUSCULAR HEMOGLOBIN 28.3 pg (27.0-33.0); MEAN CORPUSCULAR HGB CONC 32.6 g/dl (32.0-36.5); MEAN CORPUSCULAR VOLUME 86.7 fl (80.0-96.0); MONO # 0.6 10^3/uL (0.0-0.8); MONO % 8.9 % (2.0-8.0); PLATELET COUNT, AUTOMATED 312 10^3/uL (150-450); RED BLOOD COUNT 5.05 10^6/uL (4.00-5.40); WHITE BLOOD COUNT 7.2 10^3/uL (4.0-10.0)
[2021-03-20 17:49] LABS: ALBUMIN 3.5 GM/DL (3.2-5.2); ALT/SGPT 34 U/L (12-78); BILIRUBIN,DIRECT 0.1 MG/DL (0.0-0.2); BILIRUBIN,TOTAL 0.4 MG/DL (0.2-1.0); BLOOD UREA NITROGEN 16 MG/DL (7-18); CALCIUM LEVEL 9.1 MG/DL (8.5-10.1); CARBON DIOXIDE LEVEL 26 MEQ/L (21-32); CHLORIDE LEVEL 113 MEQ/L (98-107); CREATININE FOR GFR 0.66 MG/DL (0.55-1.30); GLOMERULAR FILTRATION RATE > 60.0 (>58); GLUCOSE, FASTING 92 MG/DL (70-100); LIPASE 75 U/L (73-393); POTASSIUM SERUM 3.8 MEQ/L (3.5-5.1); SODIUM LEVEL 145 MEQ/L (136-145); TOTAL PROTEIN 7.4 GM/DL (6.4-8.2)
[2021-03-20] MEDS ORDERED: MORPHINE 4 MG/ML 1ML VIAL/SYRINGE (J2270) IV ONE ×2 (18:55→22:10)
[2021-03-20] MEDS ORDERED: ISOVUE-370 76% 100ML VIAL As Ordered ONE (19:05)
--- NOTE | 2021-03-20 21:55 | REPVR ---
PROCEDURE INFORMATION: Exam: CT Abdomen And Pelvis With Contrast Exam date and time: 03/20/2021 8:17 PM Age: 45 years old Clinical indication: Abdominal pain; Localized; Right lower quadrant (rlq); Additional info: Rlq abd pain TECHNIQUE: Imaging protocol: Computed tomography of the abdomen and pelvis with contrast. Radiation optimization: All CT scans at this facility use at least one of these dose optimization techniques: automated exposure control; mA and/or kV adjustment per patient size (includes targeted exams where dose is matched to clinical indication); or iterative reconstruction. Contrast material: ISOVUE 370; Contrast volume: 100 ml; Contrast route: INTRAVENOUS (IV); COMPARISON: CT ABD/PEL W/IV CONTRAST ONLY 05/31/2020 6:38 PM FINDINGS: Liver: Unremarkable. No mass. Gallbladder and bile ducts: There has been prior cholecystectomy. No biliary duct dilation. Pancreas: Normal. No ductal dilation. Spleen: Normal. No splenomegaly. Adrenal glands: Normal. No mass. Kidneys and ureters: Unremarkable. No calculi or hydronephrosis. Stomach and bowel: There is colonic diverticulosis without evidence of diverticulitis. The small bowel is unremarkable. No bowel obstruction. Appendix: No evidence of appendicitis. Intraperitoneal space: No free air. No significant fluid collection. Vasculature: Unremarkable. No abdominal aortic aneurysm. Lymph nodes: Unremarkable. No enlarged lymph nodes. Urinary bladder: Unremarkable as visualized. Reproductive: There has been prior hysterectomy. Bones/joints: There are degenerative changes in the spine and pelvis. Chronic L1 superior endplate compression fracture. No new fractures. Normal alignment. Soft tissues: There is a small midline fat containing ventral abdominal wall hernia. IMPRESSION: 1. Colonic diverticulosis without evidence of diverticulitis. 2. No acute findings. Normal appendix. Electronically signed by: Gabriel Dorado On 03/20/2021 21:54:19 PM
[2021-03-20] MEDS ORDERED: ZOFR4TAB16 PO (22:44)
[2021-03-20 22:45] VITALS: BP 131/64
== END 2021-03-20 22:57 | disposition home or self-care (01) ==
LOC: M ED 14:25
DX: R10.31 Right lower quadrant pain (principal); K58.9 Irritable bowel syndrome, unspecified; J45.909 Unspecified asthma, uncomplicated; K57.30 Diverticulosis of large intestine without perforation or abscess without bleeding; Z79.899 Other long term (current) drug therapy; Z88.8 Allergy status to other drugs, medicaments and biological substances
CPT/HCPCS: 74177; 80048; 80076; 83690; 85025; 96374; 96376; 99285; J2270; Q9967

== ENCOUNTER → 2021-04-10 | Outpatient (CLI) | payer OTHER, MEDICAID ==
[~2021-04-10] MED LIST changes: +GASTROGRAFIN SOLUTION 30ML (Q9963) As Ordered ONE; +ISOVUE-370 76% 100ML VIAL As Ordered ONE; +OXYB5TAB10 PO
[2021-04-10 13:45] LABS: BASO % 0.5 % (0.0-1.0); EOS # 0.2 10^3/uL (0.0-0.5); EOS % 2.1 % (0.0-3.0); HEMATOCRIT 44.2 % (36.0-47.0); HEMOGLOBIN 14.4 g/dl (12.0-15.5); LYMPH # 1.7 10^3/uL (1.5-5.0); LYMPH % 22.8 % (24.0-44.0); MEAN CORPUSCULAR HEMOGLOBIN 28.1 pg (27.0-33.0); MEAN CORPUSCULAR HGB CONC 32.6 g/dl (32.0-36.5); MEAN CORPUSCULAR VOLUME 86.2 fl (80.0-96.0); MONO # 0.7 10^3/uL (0.0-0.8); MONO % 9.7 % (2.0-8.0); NEUTROPHILS # 4.7 10^3/uL (1.5-8.5); NEUTROPHILS % 64.8 % (36.0-66.0); PLATELET COUNT, AUTOMATED 292 10^3/uL (150-450); RED BLOOD COUNT 5.13 10^6/uL (4.00-5.40); WHITE BLOOD COUNT 7.3 10^3/uL (4.0-10.0)
[2021-04-10 14:15] LABS: ALBUMIN 3.3 GM/DL (3.2-5.2); ALT/SGPT 31 U/L (12-78); BILIRUBIN,TOTAL 0.4 MG/DL (0.2-1.0); BLOOD UREA NITROGEN 14 MG/DL (7-18); CARBON DIOXIDE LEVEL 28 MEQ/L (21-32); CHLORIDE LEVEL 109 MEQ/L (98-107); CREATININE FOR GFR 0.69 MG/DL (0.55-1.30); GLOMERULAR FILTRATION RATE > 60.0 (>58); GLUCOSE, FASTING 108 MG/DL (70-100); LIPASE 76 U/L (73-393); POTASSIUM SERUM 4.6 MEQ/L (3.5-5.1); SODIUM LEVEL 142 MEQ/L (136-145); TOTAL PROTEIN 7.7 GM/DL (6.4-8.2)
--- NOTE | 2021-04-10 15:17 | REP ---
INDICATION: RLQ PAIN, NAUSEA, VOMMITTING, DIARRHEA. COMPARISON: There has been 36 prior [address]s. TECHNIQUE: Standard helical technique after the intravenous administration of 100 cc Isovue 370 and oral bowel preparatory contrast administration. FINDINGS: The lung bases are clear. The patient is status post cholecystectomy. The liver, spleen, pancreas, adrenal glands, and kidneys are within normal limits. The abdominal aorta and para-aortic regions are within normal limits. The bowel loops and the mesenteries are within normal limits. The appendix is normal. There is no free fluid or free air. There is no mass or adenopathy. IMPRESSION: Unchanged exam showing no acute disease <Electronically signed by Guevara Millan > 04/10/21 [id number]
== END ==
LOC: M LAB 13:01 → M RAD 13:01
PROVIDERS: ATTEND Nurse Practitioner Family
DX: R10.31 Right lower quadrant pain (principal); R19.7 Diarrhea, unspecified; R11.2 Nausea with vomiting, unspecified
CPT/HCPCS: 36415; 74177; 80053; 83690; 85025; Q9963; Q9967

== ENCOUNTER → 2021-04-11 | Outpatient (CLI) | payer OTHER, MEDICAID ==
[~2021-04-11] MED LIST changes: -GASTROGRAFIN SOLUTION 30ML (Q9963) As Ordered ONE; -ISOVUE-370 76% 100ML VIAL As Ordered ONE; -LISI-898 PO; +LISI5TAB11 PO
== END ==
LOC: M PAIN 10:00
PROVIDERS: ATTEND Anesthesiology
DX: M54.12 Radiculopathy, cervical region (principal); M79.18 Myalgia, other site; K21.9 Gastro-esophageal reflux disease without esophagitis; J45.909 Unspecified asthma, uncomplicated; G47.33 Obstructive sleep apnea (adult) (pediatric); E78.00 Pure hypercholesterolemia, unspecified; I10 Essential (primary) hypertension; F32.A Depression, unspecified; E11.9 Type 2 diabetes mellitus without complications; R10.31 Right lower quadrant pain; R19.7 Diarrhea, unspecified; E66.01 Morbid (severe) obesity due to excess calories; Z68.41 Body mass index [BMI] 40.0-44.9, adult; Z79.891 Long term (current) use of opiate analgesic; Z79.899 Other long term (current) drug therapy; Z88.5 Allergy status to narcotic agent; Z88.8 Allergy status to other drugs, medicaments and biological substances
CPT/HCPCS: 81001; 87086; 87505; G0463

== ENCOUNTER → 2021-04-11 | Outpatient (REF) | payer OTHER, MEDICAID ==
[~2021-04-11] MED LIST changes: +LISI-898 PO; -LISI5TAB11 PO
[2021-04-11 12:03] LABS: APPEARANCE, URINE HAZY (CLEAR); BACTERIA, URINE AUTO NEGATIVE (NEGATIVE); BILIRUBIN, URINE AUTO NEGATIVE (NEGATIVE); BLOOD, URINE BLOOD NEGATIVE (NEGATIVE); COLOR, URINE YELLOW (YELLOW); GLUCOSE, URINE (UA) AUTO NEGATIVE (NEGATIVE); KETONE, URINE AUTO NEGATIVE (NEGATIVE); LEUKOCYTE ESTERASE, URINE AUTO NEGATIVE (NEGATIVE); MUCUS, URINE SMALL (NEGATIVE); NITRITE, URINE AUTO NEGATIVE (NEGATIVE); PROTEIN, URINE AUTO NEGATIVE (NEGATIVE); RBC, URINE AUTO 0 /HPF (0-3); SPECIFIC GRAVITY URINE AUTO 1.017 (1.002-1.035); SQUAMOUS EPITHELIAL CELL UR AU 6 /HPF (0-6); UROBILINOGEN, URINE AUTO 0.2 mg/dL (0.0-2.0); WBC, URINE AUTO 2 /HPF (0-3)
== END ==
LOC: M LAB REF 11:09
PROVIDERS: ATTEND Nurse Practitioner Family
DX: R10.31 Right lower quadrant pain (principal); R19.7 Diarrhea, unspecified

== ENCOUNTER 2021-04-16 19:03 | Emergency (ER) | payer OTHER, MEDICAID ==
[~2021-04-16] VITALS: Ht 157.5 cm; Wt 103.6 kg
[~2021-04-16 19:03] MED LIST changes: -LISI-898 PO; +LISI5TAB11 PO
[2021-04-16] MEDS ORDERED: ONDANSETRON 4MG/2ML VIAL IV ONE (20:15)
[2021-04-16] MEDS ORDERED: NS 1,000 ML IV ONE (20:15)
[2021-04-16 20:19] LABS: BASO % 0.4 % (0.0-1.0); EOS # 0.1 10^3/uL (0.0-0.5); EOS % 1.3 % (0.0-3.0); HEMATOCRIT 44.4 % (36.0-47.0); HEMOGLOBIN 14.6 g/dl (12.0-15.5); LYMPH # 2.6 10^3/uL (1.5-5.0); LYMPH % 28.7 % (24.0-44.0); MEAN CORPUSCULAR HEMOGLOBIN 28.1 pg (27.0-33.0); MEAN CORPUSCULAR HGB CONC 32.9 g/dl (32.0-36.5); MEAN CORPUSCULAR VOLUME 85.4 fl (80.0-96.0); MONO # 0.9 10^3/uL (0.0-0.8); MONO % 9.6 % (2.0-8.0); NEUTROPHILS # 5.5 10^3/uL (1.5-8.5); NEUTROPHILS % 59.7 % (36.0-66.0); PLATELET COUNT, AUTOMATED 325 10^3/uL (150-450); WHITE BLOOD COUNT 9.1 10^3/uL (4.0-10.0)
[2021-04-16 20:37] LABS: ALBUMIN 3.4 GM/DL (3.2-5.2); ALT/SGPT 35 U/L (12-78); BILIRUBIN,DIRECT < 0.1 MG/DL (0.0-0.2); BILIRUBIN,TOTAL 0.3 MG/DL (0.2-1.0); BLOOD UREA NITROGEN 23 MG/DL (7-18); CALCIUM LEVEL 8.9 MG/DL (8.5-10.1); CARBON DIOXIDE LEVEL 22 MEQ/L (21-32); CHLORIDE LEVEL 114 MEQ/L (98-107); CREATININE FOR GFR 0.89 MG/DL (0.55-1.30); GLOMERULAR FILTRATION RATE > 60.0 (>58); GLUCOSE, FASTING 97 MG/DL (70-100); LIPASE 85 U/L (73-393); POTASSIUM SERUM 3.8 MEQ/L (3.5-5.1); SODIUM LEVEL 143 MEQ/L (136-145); TOTAL PROTEIN 7.6 GM/DL (6.4-8.2)
[2021-04-16] MEDS ORDERED: ISOVUE-370 76% 100ML VIAL As Ordered ONE (20:49)
[2021-04-16] MEDS ORDERED: KETOROLAC 30 MG/ML 1ML VIAL IV ONE (20:55)
[2021-04-16 22:30] VITALS: BP 136/75
== END 2021-04-16 22:39 | disposition home or self-care (01) ==
LOC: M ED 19:03
DX: R10.31 Right lower quadrant pain (principal); E11.9 Type 2 diabetes mellitus without complications; I10 Essential (primary) hypertension; E78.5 Hyperlipidemia, unspecified; K58.9 Irritable bowel syndrome, unspecified; G43.909 Migraine, unspecified, not intractable, without status migrainosus; K21.9 Gastro-esophageal reflux disease without esophagitis; Z87.442 Personal history of urinary calculi; Z87.448 Personal history of other diseases of urinary system; Z79.899 Other long term (current) drug therapy; Z88.8 Allergy status to other drugs, medicaments and biological substances
CPT/HCPCS: 74177; 80048; 80076; 81001; 83690; 85025; 96361; 96374; 96375; 99284; J1885; J2405; Q9967

== ENCOUNTER → 2021-04-18 | Outpatient (CLI) | payer OTHER, MEDICAID ==
[~2021-04-18] MED LIST changes: +IBUP200T46 PO; +ONDA-83; +OXYC5CAP56
== END ==
LOC: M PLAIMG 09:50
PROVIDERS: ATTEND Anesthesiology
DX: M99.51 Intervertebral disc stenosis of neural canal of cervical region (principal); M48.02 Spinal stenosis, cervical region; M54.2 Cervicalgia
CPT/HCPCS: 72141; G0463

== ENCOUNTER → 2021-05-02 | Outpatient (REF) ==
[~2021-05-02] MED LIST changes: -IBUP200T46 PO; -ONDA-83; -OXYC5CAP56
== END ==
LOC: M LABSMTC 13:14
PROVIDERS: ATTEND Family Medicine
DX: Z11.52 Encounter for screening for COVID-19 (principal)

== ENCOUNTER → 2021-05-03 | Outpatient (REF) | payer OTHER, MEDICAID ==
[~2021-05-03] MED LIST changes: +IBUP200T46 PO; +ONDA-83; +OXYC5CAP56
== END ==
LOC: M LAB REF 17:01
PROVIDERS: ATTEND Nurse Practitioner Family
DX: R43.8 Other disturbances of smell and taste (principal)

== ENCOUNTER → 2021-05-09 | Outpatient (CLI) | payer OTHER, MEDICAID ==
[~2021-05-09] MED LIST changes: -IBUP200T46 PO
== END ==
LOC: M LABSMTC 11:48
PROVIDERS: ATTEND Anesthesiology
DX: Z01.812 Encounter for preprocedural laboratory examination (principal); Z20.822 Contact with and (suspected) exposure to COVID-19

== ENCOUNTER 2021-05-14 08:53 | Day surgery (SDC) | payer OTHER, MEDICAID ==
[~2021-05-14] VITALS: Ht 162.6 cm; Wt 99.8 kg
[~2021-05-14 08:53] MED LIST changes: +NS 1,000 ML IV ONE
[2021-05-14] MEDS ORDERED: propofoL 200 MG/20 ML VIAL As Ordered ONE (10:20)
[2021-05-14] MEDS ORDERED: LIDOCAINE 2% 100MG/5ML SDV (FOR ANES.) As Ordered ONE (10:20)
[2021-05-14 11:00] VITALS: BP 143/74
== END 2021-05-14 11:00 | disposition home or self-care (01) ==
LOC: M OPP 08:53
PROVIDERS: ATTEND Internal Medicine Gastroenterology
DX: Z12.11 Encounter for screening for malignant neoplasm of colon (principal); D12.6 Benign neoplasm of colon, unspecified; K57.30 Diverticulosis of large intestine without perforation or abscess without bleeding; K64.8 Other hemorrhoids; Z79.899 Other long term (current) drug therapy; Z88.5 Allergy status to narcotic agent; Z88.8 Allergy status to other drugs, medicaments and biological substances

== ENCOUNTER 2021-05-31 07:20 | Emergency (ER) | payer OTHER, MEDICAID ==
[~2021-05-31] VITALS: Ht 162.6 cm; Wt 100.0 kg
[~2021-05-31 07:20] MED LIST changes: -NS 1,000 ML IV ONE
[2021-05-31] MEDS ORDERED: IBUP200T46 PO (07:32)
[2021-05-31] MEDS ORDERED: NS 1,000 ML IV SCH (07:55)
[2021-05-31] MEDS ORDERED: ONDANSETRON 4MG/2ML VIAL IV ONE (07:55)
[2021-05-31] MEDS: MORPHINE 4 MG/ML 1ML VIAL/SYRINGE (J2270) IV PRN ×2 (08:12→09:26)
[2021-05-31 08:33] LABS: BASO % 0.3 % (0.0-1.0); EOS % 0.1 % (0.0-3.0); HEMATOCRIT 45.5 % (36.0-47.0); HEMOGLOBIN 15.2 g/dl (12.0-15.5); LYMPH # 0.8 10^3/uL (1.5-5.0); LYMPH % 7.6 % (24.0-44.0); MEAN CORPUSCULAR HEMOGLOBIN 27.7 pg (27.0-33.0); MEAN CORPUSCULAR HGB CONC 33.4 g/dl (32.0-36.5); MEAN CORPUSCULAR VOLUME 82.9 fl (80.0-96.0); MONO # 0.7 10^3/uL (0.0-0.8); NEUTROPHILS # 8.5 10^3/uL (1.5-8.5); NEUTROPHILS % 84.4 % (36.0-66.0); PLATELET COUNT, AUTOMATED 269 10^3/uL (150-450); RED BLOOD COUNT 5.49 10^6/uL (4.00-5.40); WHITE BLOOD COUNT 10.1 10^3/uL (4.0-10.0)
[2021-05-31] MEDS ORDERED: ISOVUE-370 76% 100ML VIAL As Ordered ONE (08:55)
[2021-05-31 09:06] LABS: ALBUMIN 3.5 GM/DL (3.2-5.2); BILIRUBIN,DIRECT 0.1 MG/DL (0.0-0.2); BILIRUBIN,TOTAL 0.5 MG/DL (0.2-1.0); TOTAL PROTEIN 7.6 GM/DL (6.4-8.2)
[2021-05-31 09:50] LABS: RSV AMPLIFICATION NEGATIVE (NEGATIVE)
[2021-05-31 11:07] VITALS: BP 120/68
== END 2021-05-31 11:10 | disposition home or self-care (01) ==
LOC: M ED 07:20
DX: R10.9 Unspecified abdominal pain (principal); E11.9 Type 2 diabetes mellitus without complications; J45.909 Unspecified asthma, uncomplicated; K58.9 Irritable bowel syndrome, unspecified; F31.9 Bipolar disorder, unspecified; M54.9 Dorsalgia, unspecified; Z87.442 Personal history of urinary calculi; Z79.899 Other long term (current) drug therapy; Z88.1 Allergy status to other antibiotic agents
CPT/HCPCS: 74177; 80047; 80076; 81001; 83690; 85025; 87631; 96374; 96375; 96376; 99284; J2270; J2405; Q9967

== ENCOUNTER → 2021-06-13 | Outpatient (CLI) | payer OTHER, MEDICAID ==
[~2021-06-13] MED LIST changes: +FLOM0.4C39 PO; +IBUP200T46 PO
[2021-06-13 14:32] LABS: BASO # 0.1 10^3/uL (0.0-0.2); BASO % 0.7 % (0.0-1.0); EOS # 0.2 10^3/uL (0.0-0.5); EOS % 2.1 % (0.0-3.0); HEMATOCRIT 43.8 % (36.0-47.0); HEMOGLOBIN 14.5 g/dl (12.0-15.5); LYMPH # 2.1 10^3/uL (1.5-5.0); LYMPH % 27.6 % (24.0-44.0); MEAN CORPUSCULAR HEMOGLOBIN 27.6 pg (27.0-33.0); MEAN CORPUSCULAR HGB CONC 33.1 g/dl (32.0-36.5); MEAN CORPUSCULAR VOLUME 83.3 fl (80.0-96.0); MONO # 0.7 10^3/uL (0.0-0.8); MONO % 9.2 % (2.0-8.0); NEUTROPHILS # 4.6 10^3/uL (1.5-8.5); NEUTROPHILS % 60.1 % (36.0-66.0); PLATELET COUNT, AUTOMATED 339 10^3/uL (150-450); RED BLOOD COUNT 5.26 10^6/uL (4.00-5.40); WHITE BLOOD COUNT 7.6 10^3/uL (4.0-10.0)
[2021-06-13 15:07] LABS: ALBUMIN 3.4 GM/DL (3.2-5.2); ALT/SGPT 41 U/L (12-78); BILIRUBIN,TOTAL 0.3 MG/DL (0.2-1.0); BLOOD UREA NITROGEN 16 MG/DL (7-18); CARBON DIOXIDE LEVEL 21 MEQ/L (21-32); CHLORIDE LEVEL 115 MEQ/L (98-107); CREATININE FOR GFR 0.75 MG/DL (0.55-1.30); GLOMERULAR FILTRATION RATE > 60.0 (>58); GLUCOSE, FASTING 111 MG/DL (70-100); POTASSIUM SERUM 3.8 MEQ/L (3.5-5.1); SODIUM LEVEL 142 MEQ/L (136-145); TOTAL PROTEIN 7.6 GM/DL (6.4-8.2)
== END ==
LOC: M LAB 13:34
PROVIDERS: ATTEND Nurse Practitioner Family
DX: R10.84 Generalized abdominal pain (principal)

== ENCOUNTER 2021-06-14 00:56 | Emergency (ER) | payer OTHER, MEDICAID ==
[~2021-06-14] VITALS: Ht 162.6 cm; Wt 101.4 kg
[~2021-06-14 00:56] MED LIST changes: -FLOM0.4C39 PO
[2021-06-14] MEDS ORDERED: ONDANSETRON 4MG/2ML VIAL IV ONE (01:35)
[2021-06-14] MEDS ORDERED: MORPHINE 4 MG/ML 1ML VIAL/SYRINGE (J2270) IV ONE (01:45)
[2021-06-14] MEDS ORDERED: KETOROLAC 30 MG/ML 1ML VIAL IV ONE (02:00)
[2021-06-14 02:09] LABS: BASO % 0.5 % (0.0-1.0); EOS # 0.1 10^3/uL (0.0-0.5); EOS % 1.7 % (0.0-3.0); HEMATOCRIT 42.5 % (36.0-47.0); HEMOGLOBIN 14.1 g/dl (12.0-15.5); LYMPH # 2.2 10^3/uL (1.5-5.0); LYMPH % 29.4 % (24.0-44.0); MEAN CORPUSCULAR HEMOGLOBIN 27.5 pg (27.0-33.0); MEAN CORPUSCULAR HGB CONC 33.2 g/dl (32.0-36.5); MONO # 0.6 10^3/uL (0.0-0.8); MONO % 7.4 % (2.0-8.0); NEUTROPHILS # 4.6 10^3/uL (1.5-8.5); NEUTROPHILS % 60.7 % (36.0-66.0); PLATELET COUNT, AUTOMATED 330 10^3/uL (150-450); RED BLOOD COUNT 5.12 10^6/uL (4.00-5.40); WHITE BLOOD COUNT 7.6 10^3/uL (4.0-10.0)
[2021-06-14 02:47] LABS: ALBUMIN 3.2 GM/DL (3.2-5.2); ALT/SGPT 45 U/L (12-78); BILIRUBIN,TOTAL 0.3 MG/DL (0.2-1.0); BLOOD UREA NITROGEN 17 MG/DL (7-18); CALCIUM LEVEL 8.2 MG/DL (8.5-10.1); CARBON DIOXIDE LEVEL 19 MEQ/L (21-32); CHLORIDE LEVEL 119 MEQ/L (98-107); CREATININE FOR GFR 0.87 MG/DL (0.55-1.30); GLOMERULAR FILTRATION RATE > 60.0 (>58); GLUCOSE, FASTING 116 MG/DL (70-100); LIPASE 113 U/L (73-393); POTASSIUM SERUM 4.2 MEQ/L (3.5-5.1); SODIUM LEVEL 144 MEQ/L (136-145); TOTAL PROTEIN 7.1 GM/DL (6.4-8.2)
[2021-06-14] MEDS ORDERED: HALOPERIDOL 5MG/ML VIAL (J1630 PER 1) IV ONE (02:55)
[2021-06-14] MEDS ORDERED: NS 1,000 ML IV ONE (02:55)
[2021-06-14] MEDS ORDERED: TAMSULOSIN 0.4 MG CAP PO ONE (03:05)
[2021-06-14] MEDS ORDERED: FLOM0.4C39 PO (04:01)
[2021-06-14] MEDS ORDERED: HYDR-3713 PO (04:01)
[2021-06-14] MEDS ORDERED: NORCO, ANEXSIA 5/325MG TABLET (HYDROcodone/ACETAMINOPHEN) PO ONE (04:25)
[2021-06-14] MEDS ORDERED: ONDANSETRON 4 MG ORAL DISINTEGRATING TAB PO ONE (04:25)
[2021-06-14] MEDS ORDERED: NORCO 5/325MG TABLET (BULK FOR ED) PO ONE (04:25)
[2021-06-14 05:10] VITALS: BP 122/84
== END 2021-06-14 05:20 | disposition home or self-care (01) ==
LOC: M ED 00:56
DX: N13.2 Hydronephrosis with renal and ureteral calculous obstruction (principal); R11.2 Nausea with vomiting, unspecified; K44.9 Diaphragmatic hernia without obstruction or gangrene; I10 Essential (primary) hypertension; G43.909 Migraine, unspecified, not intractable, without status migrainosus; E78.5 Hyperlipidemia, unspecified; J45.909 Unspecified asthma, uncomplicated; F32.A Depression, unspecified; Z90.710 Acquired absence of both cervix and uterus; Z88.8 Allergy status to other drugs, medicaments and biological substances; Z79.899 Other long term (current) drug therapy
CPT/HCPCS: 74176; 80053; 81001; 83690; 85025; 96361; 96374; 96375; 99284; J1630; J2270; J2405

== ENCOUNTER → 2021-06-21 | Outpatient (CLI) | payer OTHER, MEDICAID ==
[~2021-06-21] MED LIST changes: +CEFD300C PO; +FLOM0.4C39 PO; +GUAISYP5 PO; +HYDR-3716 PO; +ZITHTAB PO
[2021-06-21 17:02] LABS: BASO % 0.5 % (0.0-1.0); EOS # 0.2 10^3/uL (0.0-0.5); EOS % 2.5 % (0.0-3.0); HEMATOCRIT 41.2 % (36.0-47.0); HEMOGLOBIN 13.9 g/dl (12.0-15.5); LYMPH # 1.8 10^3/uL (1.5-5.0); LYMPH % 29.6 % (24.0-44.0); MEAN CORPUSCULAR HEMOGLOBIN 28.1 pg (27.0-33.0); MEAN CORPUSCULAR HGB CONC 33.7 g/dl (32.0-36.5); MEAN CORPUSCULAR VOLUME 83.4 fl (80.0-96.0); MONO # 0.7 10^3/uL (0.0-0.8); MONO % 10.9 % (2.0-8.0); NEUTROPHILS # 3.3 10^3/uL (1.5-8.5); NEUTROPHILS % 56.2 % (36.0-66.0); PLATELET COUNT, AUTOMATED 300 10^3/uL (150-450); RED BLOOD COUNT 4.94 10^6/uL (4.00-5.40)
[2021-06-21 17:27] LABS: ALBUMIN 3.3 GM/DL (3.2-5.2); ALT/SGPT 35 U/L (12-78); BILIRUBIN,DIRECT < 0.1 MG/DL (0.0-0.2); BILIRUBIN,TOTAL 0.3 MG/DL (0.2-1.0); BLOOD UREA NITROGEN 14 MG/DL (7-18); C REACTIVE PROTEIN QUANTITATIV 1.13 MG/DL (0.00-0.30); TOTAL PROTEIN 7.4 GM/DL (6.4-8.2)
[2021-06-21 18:31] LABS: ERYTHROCYTE SEDIMENTATION RATE 34 mm/hr (0-20)
== END ==
LOC: M LAB 16:08
PROVIDERS: ATTEND Internal Medicine Gastroenterology
DX: R11.0 Nausea (principal); R19.7 Diarrhea, unspecified; R10.31 Right lower quadrant pain

== ENCOUNTER → 2021-06-21 | Outpatient (REF) | payer OTHER, MEDICAID ==
[2021-06-21 17:49] LABS: APPEARANCE, URINE HAZY (CLEAR); BACTERIA, URINE AUTO NEGATIVE (NEGATIVE); BILIRUBIN, URINE AUTO NEGATIVE (NEGATIVE); BLOOD, URINE BLOOD NEGATIVE (NEGATIVE); COLOR, URINE YELLOW (YELLOW); GLUCOSE, URINE (UA) AUTO NEGATIVE (NEGATIVE); KETONE, URINE AUTO TRACE mg/dL (NEGATIVE); LEUKOCYTE ESTERASE, URINE AUTO NEGATIVE (NEGATIVE); NITRITE, URINE AUTO NEGATIVE (NEGATIVE); PROTEIN, URINE AUTO NEGATIVE (NEGATIVE); RBC, URINE AUTO 1 /HPF (0-3); SPECIFIC GRAVITY URINE AUTO 1.021 (1.002-1.035); SQUAMOUS EPITHELIAL CELL UR AU 7 /HPF (0-6); UROBILINOGEN, URINE AUTO 0.2 mg/dL (0.0-2.0); WBC, URINE AUTO 3 /HPF (0-3)
== END ==
LOC: M SMT 16:37
PROVIDERS: ATTEND Nurse Practitioner Women's Health
DX: N13.2 Hydronephrosis with renal and ureteral calculous obstruction (principal)

== ENCOUNTER → 2021-06-21 | Outpatient (CLI) | payer OTHER, MEDICAID | LOC: M PAIN 10:00 | PROVIDERS: ATTEND Anesthesiology | DX: M54.2 Cervicalgia (principal); M79.18 Myalgia, other site; M47.812 Spondylosis without myelopathy or radiculopathy, cervical region; K21.9 Gastro-esophageal reflux disease without esophagitis; J45.909 Unspecified asthma, uncomplicated; G47.33 Obstructive sleep apnea (adult) (pediatric); Z86.59 Personal history of other mental and behavioral disorders; Z88.5 Allergy status to narcotic agent; Z88.8 Allergy status to other drugs, medicaments and biological substances; E66.01 Morbid (severe) obesity due to excess calories; Z68.41 Body mass index [BMI] 40.0-44.9, adult; Z79.899 Other long term (current) drug therapy ==

== ENCOUNTER → 2021-07-05 | Outpatient (CLI) | payer OTHER, MEDICAID ==
[~2021-07-05] MED LIST changes: -CEFD300C PO; -GUAISYP5 PO; -HYDR-3716 PO; -ZITHTAB PO
== END ==
LOC: M LABSMTC 11:39
PROVIDERS: ATTEND Anesthesiology
DX: Z20.822 Contact with and (suspected) exposure to COVID-19 (principal)

== ENCOUNTER → 2021-07-10 | Outpatient (CLI) | payer OTHER, MEDICAID ==
[~2021-07-10] MED LIST changes: +BUPIVACAINE HCL 0.25% 10ML VIAL As Ordered ONE; +BUPIVACAINE HCL 0.25% 30ML VIAL As Ordered ONE; +TRIAMCINOLONE ACETONIDE SUSP 40 MG/ML VIAL (J3301) As Ordered ONE; +diazePAM 5MG TABLET As Ordered ONE; +oxyCODONE 5MG TAB As Ordered ONE
== END ==
LOC: M PAIN 08:30
PROVIDERS: ATTEND Anesthesiology
DX: M79.18 Myalgia, other site (principal); K21.9 Gastro-esophageal reflux disease without esophagitis; J45.909 Unspecified asthma, uncomplicated; Z86.59 Personal history of other mental and behavioral disorders; Z88.5 Allergy status to narcotic agent; Z88.8 Allergy status to other drugs, medicaments and biological substances; E66.01 Morbid (severe) obesity due to excess calories; Z68.41 Body mass index [BMI] 40.0-44.9, adult; Z79.899 Other long term (current) drug therapy
CPT/HCPCS: 20553; J3301

== ENCOUNTER 2021-07-15 14:32 | Emergency (ER) | payer OTHER, MEDICAID ==
[~2021-07-15] VITALS: Ht 162.6 cm; Wt 99.7 kg
[~2021-07-15 14:32] MED LIST changes: -BUPIVACAINE HCL 0.25% 10ML VIAL As Ordered ONE; -BUPIVACAINE HCL 0.25% 30ML VIAL As Ordered ONE; -TRIAMCINOLONE ACETONIDE SUSP 40 MG/ML VIAL (J3301) As Ordered ONE; -diazePAM 5MG TABLET As Ordered ONE; -oxyCODONE 5MG TAB As Ordered ONE
[2021-07-15] MEDS ORDERED: COMBIVENT RESPIMAT 100-20MCG INHALER 4GM INH STA (17:41)
[2021-07-15] MEDS ORDERED: ONDANSETRON 4MG/2ML VIAL IV ONE (17:45)
[2021-07-15 18:15] LABS: BASO % 0.4 % (0.0-1.0); EOS % 0.4 % (0.0-3.0); LYMPH # 0.9 10^3/uL (1.5-5.0); LYMPH % 19.4 % (24.0-44.0); MEAN CORPUSCULAR HEMOGLOBIN 28.3 pg (27.0-33.0); MEAN CORPUSCULAR HGB CONC 33.3 g/dl (32.0-36.5); MEAN CORPUSCULAR VOLUME 84.8 fl (80.0-96.0); MONO # 0.7 10^3/uL (0.0-0.8); NEUTROPHILS % 64.6 % (36.0-66.0); PLATELET COUNT, AUTOMATED 210 10^3/uL (150-450); RED BLOOD COUNT 5.66 10^6/uL (4.00-5.40); WHITE BLOOD COUNT 4.7 10^3/uL (4.0-10.0)
[2021-07-15] MEDS ORDERED: cefTRIAXone SOD 1 GM in D5W MINI-BAG PLUS 50 ML IV ONE (18:40)
[2021-07-15] MEDS ORDERED: AZITHROMYCIN INJ 500 MG, VIAL MATE ADAPTER 1 EACH in NS 250 ML IV ONE (18:40)
[2021-07-15 18:44] LABS: ALBUMIN 3.7 GM/DL (3.2-5.2); ALT/SGPT 48 U/L (12-78); BILIRUBIN,DIRECT 0.1 MG/DL (0.0-0.2); BILIRUBIN,TOTAL 0.6 MG/DL (0.2-1.0); BLOOD UREA NITROGEN 15 MG/DL (7-18); CARBON DIOXIDE LEVEL 20 MEQ/L (21-32); CHLORIDE LEVEL 107 MEQ/L (98-107); GLOMERULAR FILTRATION RATE > 60.0 (>58); GLUCOSE, FASTING 104 MG/DL (70-100); LIPASE 101 U/L (73-393); POTASSIUM SERUM 4.1 MEQ/L (3.5-5.1); SODIUM LEVEL 139 MEQ/L (136-145); TOTAL PROTEIN 8.3 GM/DL (6.4-8.2)
[2021-07-15] MEDS ORDERED: CEFD300C PO (20:03)
[2021-07-15] MEDS ORDERED: ZITHTAB PO (20:03)
[2021-07-15 20:38] VITALS: BP 142/64
[2021-07-16] MEDS ORDERED: HYDR-3716 PO (19:03)
[2021-07-16] MEDS ORDERED: FLOM0.4C39 PO (19:03)
== END 2021-07-15 20:40 | disposition home or self-care (01) ==
LOC: M ED 14:32
DX: J18.1 Lobar pneumonia, unspecified organism (principal); E11.9 Type 2 diabetes mellitus without complications; I10 Essential (primary) hypertension; E78.5 Hyperlipidemia, unspecified; J45.909 Unspecified asthma, uncomplicated; F41.9 Anxiety disorder, unspecified; F31.9 Bipolar disorder, unspecified; G43.909 Migraine, unspecified, not intractable, without status migrainosus; K21.9 Gastro-esophageal reflux disease without esophagitis; K58.9 Irritable bowel syndrome, unspecified; M54.9 Dorsalgia, unspecified; Z87.442 Personal history of urinary calculi

== ENCOUNTER → 2021-09-11 | Outpatient (CLI) | payer OTHER, MEDICAID ==
[~2021-09-11] MED LIST changes: +ALBU2.5V10 INH; -ALBU83IN INH; +CEFD300C PO; +GUAISYP5 PO; +HYDR-3716 PO; +ZITHTAB PO
== END ==
LOC: M PAIN 14:00
PROVIDERS: ATTEND Nurse Practitioner Family
DX: G89.4 Chronic pain syndrome (principal); M79.18 Myalgia, other site; M54.2 Cervicalgia; K21.9 Gastro-esophageal reflux disease without esophagitis; J45.909 Unspecified asthma, uncomplicated; G47.33 Obstructive sleep apnea (adult) (pediatric); Z88.5 Allergy status to narcotic agent; Z88.8 Allergy status to other drugs, medicaments and biological substances; E66.01 Morbid (severe) obesity due to excess calories; Z68.41 Body mass index [BMI] 40.0-44.9, adult; Z79.899 Other long term (current) drug therapy

== ENCOUNTER 2021-09-16 22:39 | Emergency (ER) | payer OTHER, MEDICAID ==
[~2021-09-16] VITALS: Ht 162.6 cm; Wt 100.0 kg
[2021-09-17 02:48] VITALS: BP 143/88
== END 2021-09-17 02:44 | disposition left against medical advice (07) ==
LOC: M ED 22:39
DX: Z53.21 Procedure and treatment not carried out due to patient leaving prior to being seen by health care provider (principal)

== ENCOUNTER → 2021-09-19 | Outpatient (CLI) | payer OTHER, MEDICAID ==
[2021-09-19 08:53] LABS: BASO % 0.5 % (0.0-1.0); EOS # 0.2 10^3/uL (0.0-0.5); EOS % 2.7 % (0.0-3.0); HEMOGLOBIN 13.5 g/dl (12.0-15.5); LYMPH # 1.9 10^3/uL (1.5-5.0); LYMPH % 30.1 % (24.0-44.0); MEAN CORPUSCULAR HEMOGLOBIN 28.5 pg (27.0-33.0); MEAN CORPUSCULAR HGB CONC 32.9 g/dl (32.0-36.5); MEAN CORPUSCULAR VOLUME 86.7 fl (80.0-96.0); MONO # 0.7 10^3/uL (0.0-0.8); MONO % 11.1 % (2.0-8.0); NEUTROPHILS # 3.5 10^3/uL (1.5-8.5); NEUTROPHILS % 55.3 % (36.0-66.0); PLATELET COUNT, AUTOMATED 295 10^3/uL (150-450); RED BLOOD COUNT 4.73 10^6/uL (4.00-5.40); WHITE BLOOD COUNT 6.3 10^3/uL (4.0-10.0)
[2021-09-19 09:13] LABS: INR 0.99; PARTIAL THROMBOPLASTIN TIME 27.6 SECONDS (25.9-37.0); PROTHROMBIN TIME 13.5 SECONDS (12.7-14.5)
== END ==
LOC: M LAB 07:57
PROVIDERS: ATTEND Nurse Practitioner Family
DX: R04.0 Epistaxis (principal)

== ENCOUNTER → 2021-10-16 | Outpatient (CLI) | payer OTHER, MEDICAID ==
[~2021-10-16] MED LIST changes: +GASTROGRAFIN SOLUTION 30ML (Q9963) As Ordered ONE; +ISOVUE-370 76% 100ML VIAL As Ordered ONE
== END ==
LOC: M RAD 10-10 17:30
PROVIDERS: ATTEND Internal Medicine Gastroenterology
DX: R10.31 Right lower quadrant pain (principal); J32.0 Chronic maxillary sinusitis
CPT/HCPCS: 70486; 74177; Q9963; Q9967

== ENCOUNTER → 2021-11-05 | Outpatient (REF) | payer OTHER, MEDICAID ==
[~2021-11-05] MED LIST changes: -GASTROGRAFIN SOLUTION 30ML (Q9963) As Ordered ONE; -ISOVUE-370 76% 100ML VIAL As Ordered ONE
[2021-11-05 15:08] LABS: CLOSTRIDIUM DIFFICILE PCR NEGATIVE (NEGATIVE)
[2021-11-09 03:10] LABS: CALPROTECTIN STOOL <16 ug/g (0-120); FATS NEUTRAL Normal (.); FATS TOTAL Normal (.); H PYLORI STOOL ANTIGEN Positive (Negative); PANCREATIC ELASTASE STOOL 440 (>200)
== END ==
LOC: M LAB REF 13:23
PROVIDERS: ATTEND Internal Medicine Gastroenterology
DX: R11.0 Nausea (principal)

== ENCOUNTER → 2021-11-08 | Outpatient (CLI) | payer OTHER, MEDICAID | LOC: M WHC 11:53 | PROVIDERS: ATTEND Nurse Practitioner Family | DX: Z12.31 Encounter for screening mammogram for malignant neoplasm of breast (principal); Z80.3 Family history of malignant neoplasm of breast ==

== ENCOUNTER → 2021-11-09 | Outpatient (CLI) | payer OTHER, MEDICAID | LOC: M PAIN 14:15 | PROVIDERS: ATTEND Nurse Practitioner Family | DX: M79.18 Myalgia, other site (principal); M54.2 Cervicalgia; G89.29 Other chronic pain; K21.9 Gastro-esophageal reflux disease without esophagitis; J45.909 Unspecified asthma, uncomplicated; G47.33 Obstructive sleep apnea (adult) (pediatric); I10 Essential (primary) hypertension; Z86.59 Personal history of other mental and behavioral disorders; Z88.5 Allergy status to narcotic agent; Z88.8 Allergy status to other drugs, medicaments and biological substances; E66.01 Morbid (severe) obesity due to excess calories; Z68.41 Body mass index [BMI] 40.0-44.9, adult; Z79.899 Other long term (current) drug therapy ==

== ENCOUNTER → 2021-12-18 | Outpatient (CLI) | payer OTHER, MEDICAID | LOC: M RAD 08:45 | PROVIDERS: ATTEND Nurse Practitioner Family | DX: R06.02 Shortness of breath (principal) ==

== ENCOUNTER → 2021-12-21 | Outpatient (CLI) | payer OTHER, MEDICAID ==
[2021-12-21 12:13] LABS: HEMOGLOBIN A1c 5.9 %
[2021-12-21 12:26] LABS: BLOOD UREA NITROGEN 13 MG/DL (7-18); CARBON DIOXIDE LEVEL 27 MEQ/L (21-32); CHLORIDE LEVEL 106 MEQ/L (98-107); CHOLESTEROL LEVEL 271 MG/DL (<200); CHOLESTEROL RISK RATIO 4.754 (<5); CREATININE FOR GFR 0.65 MG/DL (0.55-1.30); GLOMERULAR FILTRATION RATE > 60.0 (>58); GLUCOSE, FASTING 111 MG/DL (70-100); HDL CHOLESTEROL 57 MG/DL (>40); LDL CHOLESTEROL 176 MG/DL (<100); NON-HDL-C 214 MG/DL; SODIUM LEVEL 139 MEQ/L (136-145); TRIGLYCERIDES LEVEL 192 MG/DL (<150)
== END ==
LOC: M LAB 10:41
PROVIDERS: ATTEND Family Medicine
DX: E78.2 Mixed hyperlipidemia (principal); R73.01 Impaired fasting glucose

== ENCOUNTER → 2022-01-09 | Outpatient (CLI) | payer OTHER, MEDICAID | LOC: M RAD 09:59 | PROVIDERS: ATTEND Nurse Practitioner Family | DX: R05.9 Cough, unspecified (principal); J98.4 Other disorders of lung ==

== ENCOUNTER → 2022-01-28 | Outpatient (REF) | payer OTHER, MEDICAID | LOC: M LAB REF 17:01 | PROVIDERS: ATTEND Nurse Practitioner Family | DX: N76.0 Acute vaginitis (principal) ==

== ENCOUNTER → 2022-02-05 | Outpatient (CLI) | payer OTHER, MEDICAID | LOC: M PAIN 10:00 | PROVIDERS: ATTEND Nurse Practitioner Family | DX: M79.18 Myalgia, other site (principal); M54.2 Cervicalgia; K21.9 Gastro-esophageal reflux disease without esophagitis; J45.909 Unspecified asthma, uncomplicated; G47.33 Obstructive sleep apnea (adult) (pediatric); E78.00 Pure hypercholesterolemia, unspecified; M51.36 Other intervertebral disc degeneration, lumbar region; I10 Essential (primary) hypertension; F32.A Depression, unspecified; E11.9 Type 2 diabetes mellitus without complications; E66.01 Morbid (severe) obesity due to excess calories; M17.11 Unilateral primary osteoarthritis, right knee; Z68.41 Body mass index [BMI] 40.0-44.9, adult; Z79.891 Long term (current) use of opiate analgesic; Z79.899 Other long term (current) drug therapy; Z88.5 Allergy status to narcotic agent; Z88.8 Allergy status to other drugs, medicaments and biological substances ==

== ENCOUNTER → 2022-02-18 | Outpatient (REF) | payer OTHER, MEDICAID | LOC: M LAB REF 17:26 | PROVIDERS: ATTEND Nurse Practitioner Family | DX: N76.0 Acute vaginitis (principal); R30.0 Dysuria ==

== ENCOUNTER → 2022-03-05 | Outpatient (CLI) | payer OTHER, MEDICAID ==
[2022-03-05 15:53] LABS: BASO % 0.6 % (0.0-1.0); EOS # 0.1 10^3/uL (0.0-0.5); EOS % 2.2 % (0.0-3.0); HEMATOCRIT 45.6 % (36.0-47.0); HEMOGLOBIN 14.8 g/dl (12.0-15.5); LYMPH % 30.4 % (24.0-44.0); MEAN CORPUSCULAR HEMOGLOBIN 27.4 pg (27.0-33.0); MEAN CORPUSCULAR HGB CONC 32.5 g/dl (32.0-36.5); MEAN CORPUSCULAR VOLUME 84.4 fl (80.0-96.0); MONO # 0.6 10^3/uL (0.0-0.8); MONO % 9.4 % (2.0-8.0); NEUTROPHILS # 3.7 10^3/uL (1.5-8.5); NEUTROPHILS % 56.9 % (36.0-66.0); PLATELET COUNT, AUTOMATED 318 10^3/uL (150-450); WHITE BLOOD COUNT 6.5 10^3/uL (4.0-10.0)
[2022-03-14 09:08] LABS: E001-IgE Cat Epith/Dander 0.11 kU/L (Class 0/I); E005-IgE Dog Dander < 0.10 kU/L (Class 0); G002-IgE Bermuda Grass < 0.10 kU/L (Class 0); M001-IgE Penicillium chrysogen < 0.10 kU/L (Class 0); M002 IgE Cladosporium herbaru < 0.10 kU/L (Class 0); M003 IgE Aspergillus fumigatu < 0.10 kU/L (Class 0); M006-IgE Alternaria alternata < 0.10 kU/L (Class 0); T001-IgE Maple/Box Elder < 0.10 kU/L (Class 0); T006-IgE Cedar, Mountain < 0.10 kU/L (Class 0); T007-IgE Oak, White < 0.10 kU/L (Class 0); T008-IgE Elm, American < 0.10 kU/L (Class 0); T015-IgE Ash, White < 0.10 kU/L (Class 0); T070-IgE White Mulberry < 0.10 kU/L (Class 0); W001-IgE Ragweed, Short < 0.10 kU/L (Class 0); W018-IgE Sheep Sorrel < 0.10 kU/L (Class 0)
== END ==
LOC: M LAB 15:18
PROVIDERS: ATTEND Nurse Practitioner Family
DX: J45.909 Unspecified asthma, uncomplicated (principal); Z79.899 Other long term (current) drug therapy; R51.9 Headache, unspecified; M79.18 Myalgia, other site; M54.2 Cervicalgia

== ENCOUNTER → 2022-03-05 | Outpatient (CLI) | payer OTHER, MEDICAID ==
[2022-03-05 15:54] LABS: BASO % 0.6 % (0.0-1.0); EOS # 0.1 10^3/uL (0.0-0.5); EOS % 1.8 % (0.0-3.0); HEMATOCRIT 45.5 % (36.0-47.0); HEMOGLOBIN 14.7 g/dl (12.0-15.5); LYMPH # 2.1 10^3/uL (1.5-5.0); LYMPH % 31.5 % (24.0-44.0); MEAN CORPUSCULAR HEMOGLOBIN 27.3 pg (27.0-33.0); MEAN CORPUSCULAR HGB CONC 32.3 g/dl (32.0-36.5); MEAN CORPUSCULAR VOLUME 84.4 fl (80.0-96.0); MONO # 0.6 10^3/uL (0.0-0.8); MONO % 8.7 % (2.0-8.0); NEUTROPHILS # 3.7 10^3/uL (1.5-8.5); NEUTROPHILS % 56.9 % (36.0-66.0); PLATELET COUNT, AUTOMATED 317 10^3/uL (150-450); RED BLOOD COUNT 5.39 10^6/uL (4.00-5.40); WHITE BLOOD COUNT 6.6 10^3/uL (4.0-10.0)
[2022-03-05 16:26] LABS: ERYTHROCYTE SEDIMENTATION RATE 30 mm/hr (0-20)
[2022-03-05 16:32] LABS: CHLORIDE LEVEL 104 MMOL/L (98-107); POTASSIUM SERUM 3.5 MMOL/L (3.5-5.1); SODIUM LEVEL 140 MMOL/L (136-145)
[2022-03-05 16:33] LABS: ALBUMIN 3.5 G/DL (3.2-5.2); CARBON DIOXIDE LEVEL 25 MMOL/L (20-31)
[2022-03-05 16:38] LABS: ALKALINE PHOSPHATASE 124 U/L (46-116); BLOOD UREA NITROGEN 10 MG/DL (9-23); CALCIUM LEVEL 9.1 MG/DL (8.5-10.1); GLUCOSE, FASTING 84 MG/DL (60-100)
[2022-03-05 16:40] LABS: ALT/SGPT 41 U/L (7.0-40); AST/SGOT 27 U/L (<34); BILIRUBIN,TOTAL 0.5 MG/DL (0.3-1.2); CREATININE FOR GFR 0.63 MG/DL (0.55-1.30); GLOMERULAR FILTRATION RATE > 60.0 (>58); TOTAL PROTEIN 6.9 G/DL (5.7-8.2)
[2022-03-05 16:42] LABS: TOTAL 25(OH) VITAMIN D 18.4 NG/ML (20.0-100.0)
[2022-03-05 16:44] LABS: VITAMIN B12 LEVEL 471 PG/ML (211-911)
[2022-03-06 02:22] LABS: RHEUMATOID FACTOR QUANT < 3.5 IU/ML (<14)
[2022-03-06 17:14] LABS: FOLATE 9.6 NG/ML (>5.4)
[2022-03-07 11:08] LABS: ANTINUCLEAR ANTIBODIES DIRECT Negative (Negative)
== END ==
LOC: M LAB 15:21
PROVIDERS: ATTEND Psychiatry & Neurology Neurology
DX: R51.9 Headache, unspecified (principal); M79.18 Myalgia, other site; M54.2 Cervicalgia; Z79.899 Other long term (current) drug therapy

== ENCOUNTER 2022-04-21 17:51 | Emergency (ER) | payer OTHER, MEDICAID ==
[~2022-04-21] VITALS: Ht 162.6 cm; Wt 110.4 kg
[2022-04-22 03:36] VITALS: BP 142/91
[2022-04-22] MEDS ORDERED: ACETAMINOPHEN TAB 650MG DOSE (2X325MG) PO ONE (04:25)
== END 2022-04-22 05:28 | disposition left against medical advice (07) ==
LOC: M ED 17:51
DX: Z53.21 Procedure and treatment not carried out due to patient leaving prior to being seen by health care provider (principal)

== ENCOUNTER → 2022-04-22 | Outpatient (REF) ==
[2022-04-22 12:49] LABS: RSV AMPLIFICATION NEGATIVE (NEGATIVE)
== END ==
LOC: M EMP 11:38
PROVIDERS: ATTEND Family Medicine
DX: Z20.822 Contact with and (suspected) exposure to COVID-19 (principal)

== ENCOUNTER 2022-04-24 13:39 | Emergency (ER) | payer OTHER, MEDICAID ==
[~2022-04-24] VITALS: Ht 162.6 cm; Wt 100.0 kg
[2022-04-24 14:35] LABS: BASO # 0.1 10^3/uL (0.0-0.2); BASO % 0.8 % (0.0-1.0); EOS # 0.1 10^3/uL (0.0-0.5); EOS % 1.6 % (0.0-3.0); HEMATOCRIT 47.5 % (36.0-47.0); HEMOGLOBIN 15.6 g/dl (12.0-15.5); LYMPH % 32.1 % (24.0-44.0); MEAN CORPUSCULAR HEMOGLOBIN 27.4 pg (27.0-33.0); MEAN CORPUSCULAR HGB CONC 32.8 g/dl (32.0-36.5); MEAN CORPUSCULAR VOLUME 83.3 fl (80.0-96.0); MONO # 0.7 10^3/uL (0.0-0.8); MONO % 10.9 % (2.0-8.0); NEUTROPHILS # 3.4 10^3/uL (1.5-8.5); NEUTROPHILS % 54.4 % (36.0-66.0); PLATELET COUNT, AUTOMATED 313 10^3/uL (150-450); WHITE BLOOD COUNT 6.3 10^3/uL (4.0-10.0)
[2022-04-24 14:51] LABS: LIPASE 29 U/L (12-53)
[2022-04-24 14:53] LABS: ALBUMIN 3.7 G/DL (3.2-5.2); ALKALINE PHOSPHATASE 123 U/L (46-116); ALT/SGPT 73 U/L (7.0-40); AST/SGOT 42 U/L (<34); BILIRUBIN,DIRECT 0.1 MG/DL (<0.4); BILIRUBIN,TOTAL 0.7 MG/DL (0.3-1.2); BLOOD UREA NITROGEN 16 MG/DL (9-23); CARBON DIOXIDE LEVEL 23 MMOL/L (20-31); CHLORIDE LEVEL 109 MMOL/L (98-107); CREATININE FOR GFR 0.68 MG/DL (0.55-1.30); GLOMERULAR FILTRATION RATE > 60.0 (>58); GLUCOSE, FASTING 113 MG/DL (60-100); SODIUM LEVEL 142 MMOL/L (136-145); TOTAL PROTEIN 7.4 G/DL (5.7-8.2)
[2022-04-24 15:00] LABS: HCG, SERUM QUALITATIVE NEGATIVE (NEGATIVE)
[2022-04-24] MEDS ORDERED: ONDANSETRON 4MG 2ML VIAL IV ONE (16:05)
[2022-04-24] MEDS ORDERED: NS 1,000 ML IV ONE (16:05)
[2022-04-24] MEDS ORDERED: MORPHINE 4 MG/ML 1ML VIAL IV PRN (16:05)
[2022-04-24] MEDS ORDERED: ISOVUE-370 76% 100ML VIAL As Ordered ONE (16:09)
[2022-04-24] MEDS ORDERED: NIRMATRELVIR/RITONAVIR CO-PACK (EMERGENCY USE AUTH) PO SCH ×2 (17:15→21:00)
[2022-04-24 18:26] VITALS: BP 144/73
== END 2022-04-24 18:30 | disposition home or self-care (01) ==
LOC: M ED 16:19
DX: U07.1 COVID-19 (principal); E11.9 Type 2 diabetes mellitus without complications; I10 Essential (primary) hypertension; K21.9 Gastro-esophageal reflux disease without esophagitis; J45.909 Unspecified asthma, uncomplicated; G47.33 Obstructive sleep apnea (adult) (pediatric); E66.9 Obesity, unspecified; Z79.899 Other long term (current) drug therapy; Z88.8 Allergy status to other drugs, medicaments and biological substances
CPT/HCPCS: 74177; 80048; 80076; 83690; 84703; 85025; 96374; 96375; 99283; J2405; Q9967

== ENCOUNTER → 2022-04-29 | Outpatient (CLI) | payer OTHER, MEDICAID | LOC: M LAB 10:54 | PROVIDERS: ATTEND Nurse Practitioner Family | DX: K92.1 Melena (principal) ==

== ENCOUNTER → 2022-05-09 | Outpatient (REF) | payer OTHER, MEDICAID | LOC: M LAB REF 13:35 | PROVIDERS: ATTEND Internal Medicine Gastroenterology | DX: K52.9 Noninfective gastroenteritis and colitis, unspecified (principal) ==

== ENCOUNTER → 2022-05-10 | Outpatient (CLI) | payer OTHER, MEDICAID | LOC: M PAIN 09:45 | PROVIDERS: ATTEND Nurse Practitioner Family | DX: M79.18 Myalgia, other site (principal); M54.2 Cervicalgia; G89.29 Other chronic pain; K21.9 Gastro-esophageal reflux disease without esophagitis; J45.909 Unspecified asthma, uncomplicated; G47.33 Obstructive sleep apnea (adult) (pediatric); I10 Essential (primary) hypertension; E11.9 Type 2 diabetes mellitus without complications; Z86.59 Personal history of other mental and behavioral disorders; Z88.5 Allergy status to narcotic agent; Z88.8 Allergy status to other drugs, medicaments and biological substances; E66.01 Morbid (severe) obesity due to excess calories; Z68.42 Body mass index [BMI] 45.0-49.9, adult; Z79.51 Long term (current) use of inhaled steroids; Z79.899 Other long term (current) drug therapy ==

== ENCOUNTER 2022-06-02 20:36 | Emergency (ER) | payer OTHER, MEDICAID ==
[~2022-06-02] VITALS: Ht 162.6 cm; Wt 111.6 kg
[~2022-06-02 20:36] MED LIST changes: +MONT-5 PO; -SING10TA32 PO; +TOPI-254 PO; -TOPI50TA9 PO
[2022-06-02] MEDS ORDERED: BREO1INH3 PO (20:50)
[2022-06-02] MEDS ORDERED: IPRATROPIUM 0.5MG/ALBUTEROL 2.5MG INH SOL UD 3ML (DUONEB) NEB ONE (21:55)
[2022-06-02 22:27] LABS: BASO % 0.4 % (0.0-1.0); EOS # 0.2 10^3/uL (0.0-0.5); HEMATOCRIT 44.6 % (36.0-47.0); HEMOGLOBIN 14.4 g/dl (12.0-15.5); LYMPH # 2.4 10^3/uL (1.5-5.0); LYMPH % 31.4 % (24.0-44.0); MEAN CORPUSCULAR HEMOGLOBIN 27.4 pg (27.0-33.0); MEAN CORPUSCULAR HGB CONC 32.3 g/dl (32.0-36.5); MEAN CORPUSCULAR VOLUME 84.8 fl (80.0-96.0); MONO # 0.6 10^3/uL (0.0-0.8); MONO % 8.5 % (2.0-8.0); NEUTROPHILS # 4.3 10^3/uL (1.5-8.5); NEUTROPHILS % 57.4 % (36.0-66.0); PLATELET COUNT, AUTOMATED 305 10^3/uL (150-450); RED BLOOD COUNT 5.26 10^6/uL (4.00-5.40); WHITE BLOOD COUNT 7.6 10^3/uL (4.0-10.0)
[2022-06-02 22:29] LABS: APPEARANCE, URINE HAZY (CLEAR); BACTERIA, URINE AUTO NEGATIVE (NEGATIVE); BILIRUBIN, URINE AUTO NEGATIVE (NEGATIVE); BLOOD, URINE BLOOD NEGATIVE (NEGATIVE); COLOR, URINE YELLOW (YELLOW); GLUCOSE, URINE (UA) AUTO NEGATIVE (NEGATIVE); KETONE, URINE AUTO NEGATIVE (NEGATIVE); LEUKOCYTE ESTERASE, URINE AUTO NEGATIVE (NEGATIVE); MUCUS, URINE SMALL (NEGATIVE); NITRITE, URINE AUTO NEGATIVE (NEGATIVE); PROTEIN, URINE AUTO NEGATIVE (NEGATIVE); RBC, URINE AUTO 1 /HPF (0-3); SQUAMOUS EPITHELIAL CELL UR AU 12 /HPF (0-6); UROBILINOGEN, URINE AUTO 0.2 mg/dL (0.0-2.0); WBC, URINE AUTO 1 /HPF (0-3)
[2022-06-02 22:40] LABS: INR 0.93; PROTHROMBIN TIME 12.7 SECONDS (12.5-14.5)
[2022-06-02 22:41] LABS: PARTIAL THROMBOPLASTIN TIME 26.3 SECONDS (24.8-34.2)
[2022-06-02 22:51] LABS: BLOOD UREA NITROGEN 13 MG/DL (9-23); CARBON DIOXIDE LEVEL 27 MMOL/L (20-31); CHLORIDE LEVEL 107 MMOL/L (98-107); CK-MB VALUE MASS < 1.0 NG/ML (<3.6); CPK CREATINE PHOSPHOKINASE 95 U/L (34-145); CREATININE FOR GFR 0.71 MG/DL (0.55-1.30); GLOMERULAR FILTRATION RATE > 60.0 (>58); GLUCOSE, FASTING 96 MG/DL (60-100); MAGNESIUM LEVEL 1.8 MG/DL (1.8-2.4); MB/CK RELATIVE INDEX 1.05 (< OR =4); POTASSIUM SERUM 3.9 MMOL/L (3.5-5.1); SODIUM LEVEL 141 MMOL/L (136-145)
[2022-06-03 01:21] VITALS: BP 120/66
[2022-06-03] MEDS ORDERED: FLON1SPR (13:21)
[2022-06-03] MEDS ORDERED: ALBU90AE IH (13:21)
== END 2022-06-03 01:44 | disposition home or self-care (01) ==
LOC: M ED 20:36
DX: M54.12 Radiculopathy, cervical region (principal); R07.89 Other chest pain; E78.5 Hyperlipidemia, unspecified; F32.9 Major depressive disorder, single episode, unspecified; J45.909 Unspecified asthma, uncomplicated; G43.909 Migraine, unspecified, not intractable, without status migrainosus; Z86.16 Personal history of COVID-19; Z98.61 Coronary angioplasty status; J30.89 Other allergic rhinitis; Z79.899 Other long term (current) drug therapy; Z88.8 Allergy status to other drugs, medicaments and biological substances

== ENCOUNTER → 2022-06-12 | Outpatient (CLI) | payer OTHER, MEDICAID ==
[~2022-06-12] MED LIST changes: +ALBU90AE IH; +BREO1INH3 PO; +FLON1SPR
== END ==
LOC: M LABSMTC 07:47
PROVIDERS: ATTEND Anesthesiology
DX: Z01.818 Encounter for other preprocedural examination (principal)

== ENCOUNTER 2022-06-17 12:47 | Day surgery (SDC) | payer OTHER, MEDICAID ==
[~2022-06-17] VITALS: Ht 162.6 cm; Wt 111.8 kg
[~2022-06-17 12:47] MED LIST changes: +LIDOCAINE 2% 100MG/5ML SDV (FOR ANES.) As Ordered ONE; +NS 1,000 ML IV ONE; +fentaNYL 100 MCG/2 ML INJECTION As Ordered ONE; +propofoL 200 MG/20 ML VIAL As Ordered ONE
[2022-06-17 15:20] VITALS: BP 136/77
== END 2022-06-17 15:25 | disposition home or self-care (01) ==
LOC: M OPP 12:47
PROVIDERS: ATTEND Internal Medicine Gastroenterology
DX: K22.89 Other specified disease of esophagus (principal); K29.70 Gastritis, unspecified, without bleeding; Z86.19 Personal history of other infectious and parasitic diseases; Z87.11 Personal history of peptic ulcer disease; G43.909 Migraine, unspecified, not intractable, without status migrainosus; J45.909 Unspecified asthma, uncomplicated; I10 Essential (primary) hypertension; E78.00 Pure hypercholesterolemia, unspecified; I31.9 Disease of pericardium, unspecified; Z79.02 Long term (current) use of antithrombotics/antiplatelets; Z79.51 Long term (current) use of inhaled steroids; Z79.52 Long term (current) use of systemic steroids; Z79.891 Long term (current) use of opiate analgesic; Z79.899 Other long term (current) drug therapy; Z88.8 Allergy status to other drugs, medicaments and biological substances
CPT/HCPCS: 43239; 88305; J3010

== ENCOUNTER 2022-07-04 12:13 | Emergency (ER) | payer OTHER, MEDICAID ==
[~2022-07-04] VITALS: Ht 162.6 cm; Wt 109.0 kg
[~2022-07-04 12:13] MED LIST changes: -LIDOCAINE 2% 100MG/5ML SDV (FOR ANES.) As Ordered ONE; -NS 1,000 ML IV ONE; -fentaNYL 100 MCG/2 ML INJECTION As Ordered ONE; -propofoL 200 MG/20 ML VIAL As Ordered ONE
[2022-07-04 14:54] VITALS: BP 138/72
== END 2022-07-04 14:55 | disposition home or self-care (01) ==
LOC: M ED 12:13
DX: U07.1 COVID-19 (principal); E11.9 Type 2 diabetes mellitus without complications; J45.909 Unspecified asthma, uncomplicated; G43.909 Migraine, unspecified, not intractable, without status migrainosus; K58.9 Irritable bowel syndrome, unspecified; F31.9 Bipolar disorder, unspecified; Z79.84 Long term (current) use of oral hypoglycemic drugs; Z88.8 Allergy status to other drugs, medicaments and biological substances

== ENCOUNTER → 2022-07-25 | Outpatient (CLI) | payer OTHER, MEDICAID ==
[2022-07-25 13:18] LABS: HEMOGLOBIN A1c 6.2 % (4.0-6.0)
[2022-07-25 13:38] LABS: ALBUMIN 3.3 G/DL (3.2-5.2); ALKALINE PHOSPHATASE 98 U/L (46-116); ALT/SGPT 76 U/L (7.0-40); AST/SGOT 35 U/L (<34); BILIRUBIN,TOTAL 0.4 MG/DL (0.3-1.2); BLOOD UREA NITROGEN 12 MG/DL (9-23); CALCIUM LEVEL 9.3 MG/DL (8.5-10.1); CARBON DIOXIDE LEVEL 25 MMOL/L (20-31); CHLORIDE LEVEL 110 MMOL/L (98-107); CHOLESTEROL LEVEL 218 MG/DL (<200); CHOLESTEROL RISK RATIO 4.64 (<5); GLOMERULAR FILTRATION RATE > 60.0 (>58); GLUCOSE, FASTING 137 MG/DL (60-100); HDL CHOLESTEROL 46.9 MG/DL (>40); LDL CHOLESTEROL 120.9 MG/DL (<100); NON-HDL-C 171.1 MG/DL; POTASSIUM SERUM 3.8 MMOL/L (3.5-5.1); SODIUM LEVEL 141 MMOL/L (136-145); TRIGLYCERIDES LEVEL 251 MG/DL (<150)
== END ==
LOC: M LAB 12:34
PROVIDERS: ATTEND Nurse Practitioner Family
DX: I10 Essential (primary) hypertension (principal); R73.01 Impaired fasting glucose

== ENCOUNTER → 2022-08-01 | Outpatient (REF) | payer OTHER, MEDICAID | LOC: M LAB REF 17:10 | PROVIDERS: ATTEND Registered Nurse | DX: R30.0 Dysuria (principal) ==

== ENCOUNTER → 2022-08-05 | Outpatient (CLI) | payer OTHER, MEDICAID | LOC: M SLEEP 20:00 | PROVIDERS: ATTEND Nurse Practitioner Family | DX: G47.33 Obstructive sleep apnea (adult) (pediatric) (principal) ==

== ENCOUNTER → 2022-08-14 | Outpatient (REF) | payer OTHER, MEDICAID ==
[~2022-08-14] MED LIST changes: +ONDA4TAB6 PO; +PEPC1TAB5 PO
[2022-09-03 17:08] LABS: FATS NEUTRAL Normal (.); FATS TOTAL Normal (.); PANCREATIC ELASTASE STOOL >500 (>200)
== END ==
LOC: M LAB REF 11:31
PROVIDERS: ATTEND Nurse Practitioner Family
DX: K52.9 Noninfective gastroenteritis and colitis, unspecified (principal)

== ENCOUNTER → 2022-08-20 | Outpatient (REF) | payer OTHER, MEDICAID | LOC: M LAB REF 11:33 | PROVIDERS: ATTEND Nurse Practitioner Family | DX: R30.0 Dysuria (principal) ==

== ENCOUNTER 2022-08-23 15:17 | Emergency (ER) | payer OTHER, MEDICAID ==
[~2022-08-23] VITALS: Ht 162.6 cm; Wt 106.7 kg
[~2022-08-23 15:17] MED LIST changes: -ONDA4TAB6 PO; -PEPC1TAB5 PO
[2022-08-23] MEDS ORDERED: NS 1,000 ML IV ONE (16:40)
[2022-08-23] MEDS ORDERED: ACETAMINOPHEN 1000MG 100ML IV BAG IV ONE (16:40)
[2022-08-23] MEDS ORDERED: ONDANSETRON 4MG 2ML VIAL IV ONE (16:40)
[2022-08-23] MEDS ORDERED: FAMOTIDINE 20MG/2ML VIAL IVP ONE (16:40)
[2022-08-23 17:39] LABS: BASO % 0.4 % (0.0-1.0); EOS % 0.3 % (0.0-3.0); HEMATOCRIT 47.4 % (36.0-47.0); HEMOGLOBIN 15.7 g/dl (12.0-15.5); LYMPH # 1.3 10^3/uL (1.5-5.0); LYMPH % 12.1 % (24.0-44.0); MEAN CORPUSCULAR HEMOGLOBIN 28.2 pg (27.0-33.0); MEAN CORPUSCULAR HGB CONC 33.1 g/dl (32.0-36.5); MEAN CORPUSCULAR VOLUME 85.1 fl (80.0-96.0); MONO # 0.6 10^3/uL (0.0-0.8); MONO % 5.9 % (2.0-8.0); NEUTROPHILS # 8.4 10^3/uL (1.5-8.5); PLATELET COUNT, AUTOMATED 351 10^3/uL (150-450); RED BLOOD COUNT 5.57 10^6/uL (4.00-5.40); WHITE BLOOD COUNT 10.4 10^3/uL (4.0-10.0)
[2022-08-23 18:02] LABS: ALBUMIN 3.7 G/DL (3.2-5.2); BILIRUBIN,DIRECT 0.1 MG/DL (<0.4); BILIRUBIN,TOTAL 0.5 MG/DL (0.3-1.2); TOTAL PROTEIN 7.5 G/DL (5.7-8.2)
[2022-08-23] MEDS ORDERED: ISOVUE-370 76% 100ML VIAL As Ordered ONE (18:02)
[2022-08-23] MEDS ORDERED: ONDA4TAB6 PO (19:57)
[2022-08-23] MEDS ORDERED: MACR100C43 PO (19:57)
[2022-08-23] MEDS ORDERED: PEPC1TAB5 PO (19:57)
[2022-08-23] MEDS ORDERED: NITROFURANTOIN (MACROBID) 100 MG CAP PO ONE (20:00)
[2022-08-23 20:19] VITALS: BP 163/99
== END 2022-08-23 21:05 | disposition home or self-care (01) ==
LOC: M ED 15:17
DX: A04.72 Enterocolitis due to Clostridium difficile, not specified as recurrent (principal); K57.32 Diverticulitis of large intestine without perforation or abscess without bleeding; K76.0 Fatty (change of) liver, not elsewhere classified; K55.9 Vascular disorder of intestine, unspecified; N39.0 Urinary tract infection, site not specified; K42.9 Umbilical hernia without obstruction or gangrene; Z79.899 Other long term (current) drug therapy; Z88.8 Allergy status to other drugs, medicaments and biological substances
CPT/HCPCS: 74177; 80047; 80076; 81001; 83605; 83690; 85025; 87040; 87088; 87186; 96361; 96374; 96375; 99284; J0131; J2405; Q9967

== ENCOUNTER 2022-09-27 13:10 | Outpatient (CLI) | payer OTHER, MEDICAID ==
[~2022-09-27 13:10] MED LIST changes: -K-TA10TA PO; +ONDA4TAB6 PO; +PEPC1TAB5 PO; +POTA-164 PO
[2022-09-27 13:25] VITALS: BP 124/78; O2SAT 98
[2022-09-27] MEDS ORDERED: FECAL MICROBIOTA, LIVE-JSLM 150ML BAG (REBYOTA) RC ONE (15:30)
== END 2022-09-27 14:00 | disposition home or self-care (01) ==
LOC: M OPCLI4PR 13:10
PROVIDERS: ATTEND Internal Medicine Gastroenterology
DX: A04.71 Enterocolitis due to Clostridium difficile, recurrent (principal); Z88.8 Allergy status to other drugs, medicaments and biological substances
CPT/HCPCS: C9399; G0455

== ENCOUNTER → 2022-10-21 | Outpatient (CLI) | payer OTHER, MEDICAID ==
[~2022-10-21] MED LIST changes: +DICY-61 PO; -DICY10CA13 PO
== END ==
LOC: M LAB 15:59
PROVIDERS: ATTEND Internal Medicine Gastroenterology
DX: R19.7 Diarrhea, unspecified (principal); A04.72 Enterocolitis due to Clostridium difficile, not specified as recurrent

== ENCOUNTER → 2022-11-07 | Outpatient (CLI) | payer OTHER, MEDICAID ==
[2022-11-07 14:45] LABS: HEMOGLOBIN A1c 5.6 % (4.0-6.0)
[2022-11-07 15:12] LABS: ALBUMIN 3.4 G/DL (3.2-5.2); ALKALINE PHOSPHATASE 101 U/L (46-116); ALT/SGPT 49 U/L (7.0-40); AST/SGOT 26 U/L (<34); BILIRUBIN,TOTAL 0.5 MG/DL (0.3-1.2); BLOOD UREA NITROGEN 12 MG/DL (9-23); CALCIUM LEVEL 8.7 MG/DL (8.5-10.1); CARBON DIOXIDE LEVEL 26 MMOL/L (20-31); CHLORIDE LEVEL 106 MMOL/L (98-107); CHOLESTEROL LEVEL 223 MG/DL (<200); CHOLESTEROL RISK RATIO 5.01 (<5); CREATININE FOR GFR 0.63 MG/DL (0.55-1.30); GLOMERULAR FILTRATION RATE > 60.0 (>58); GLUCOSE, FASTING 84 MG/DL (60-100); HDL CHOLESTEROL 44.5 MG/DL (>40); LDL CHOLESTEROL 135.7 MG/DL (<100); NON-HDL-C 178.5 MG/DL; POTASSIUM SERUM 3.8 MMOL/L (3.5-5.1); SODIUM LEVEL 139 MMOL/L (136-145); TOTAL PROTEIN 6.6 G/DL (5.7-8.2); TRIGLYCERIDES LEVEL 214 MG/DL (<150)
== END ==
LOC: M LAB 13:00
PROVIDERS: ATTEND Nurse Practitioner Family
DX: I10 Essential (primary) hypertension (principal); R73.01 Impaired fasting glucose

== ENCOUNTER → 2022-12-03 | Outpatient (REF) | payer OTHER, MEDICAID ==
[2022-12-03 21:41] LABS: CLOSTRIDIUM DIFFICILE PCR NEGATIVE (NEGATIVE)
== END ==
LOC: M LAB REF 19:41
PROVIDERS: ATTEND Internal Medicine Gastroenterology
DX: R19.7 Diarrhea, unspecified (principal)

== ENCOUNTER → 2022-12-11 | Outpatient (REF) ==
[2022-12-11 11:50] LABS: RSV AMPLIFICATION NEGATIVE (NEGATIVE)
== END ==
LOC: M EMP 08:22
PROVIDERS: ATTEND Family Medicine
DX: Z11.52 Encounter for screening for COVID-19 (principal)

== ENCOUNTER → 2022-12-11 | Outpatient (CLI) | payer OTHER, MEDICAID | LOC: M RAD 16:05 | PROVIDERS: ATTEND Internal Medicine Gastroenterology | DX: Z53.9 Procedure and treatment not carried out, unspecified reason (principal) ==

== ENCOUNTER → 2022-12-12 | Outpatient (CLI) | payer OTHER, MEDICAID | LOC: M RAD 16:01 | PROVIDERS: ATTEND Internal Medicine Gastroenterology | DX: R19.7 Diarrhea, unspecified (principal); Z53.9 Procedure and treatment not carried out, unspecified reason ==

== ENCOUNTER → 2022-12-24 | Outpatient (REF) | payer OTHER, MEDICAID ==
[2022-12-24 19:07] LABS: APPEARANCE, URINE HAZY (CLEAR); BACTERIA, URINE AUTO NEGATIVE (NEGATIVE); BILIRUBIN, URINE AUTO NEGATIVE (NEGATIVE); BLOOD, URINE BLOOD NEGATIVE (NEGATIVE); COLOR, URINE YELLOW (YELLOW); GLUCOSE, URINE (UA) AUTO NEGATIVE (NEGATIVE); KETONE, URINE AUTO NEGATIVE (NEGATIVE); LEUKOCYTE ESTERASE, URINE AUTO NEGATIVE (NEGATIVE); MUCUS, URINE SMALL (NEGATIVE); NITRITE, URINE AUTO NEGATIVE (NEGATIVE); PROTEIN, URINE AUTO NEGATIVE (NEGATIVE); RBC, URINE AUTO 0 /HPF (0-3); SPECIFIC GRAVITY URINE AUTO 1.016 (1.002-1.035); SQUAMOUS EPITHELIAL CELL UR AU 14 /HPF (0-6); UROBILINOGEN, URINE AUTO 0.2 mg/dL (0.0-2.0); WBC, URINE AUTO 3 /HPF (0-3)
== END ==
LOC: M SMT 17:11
PROVIDERS: ATTEND Specialist
DX: N39.41 Urge incontinence (principal)

== ENCOUNTER → 2023-01-15 | Outpatient (REF) ==
[~2023-01-15] MED LIST changes: -OXYB5TAB10 PO; +OXYB5TAB11 PO
== END ==
LOC: M EMP 09:03
PROVIDERS: ATTEND Family Medicine
DX: Z11.52 Encounter for screening for COVID-19 (principal)

== ENCOUNTER → 2023-02-12 | Outpatient (CLI) | payer OTHER, MEDICAID | LOC: M SLEEP 20:00 | PROVIDERS: ATTEND Nurse Practitioner Family | DX: G47.33 Obstructive sleep apnea (adult) (pediatric) (principal) ==

== ENCOUNTER → 2023-02-20 | Outpatient (REF) | LOC: M EMP 14:25 | PROVIDERS: ATTEND Family Medicine | DX: Z11.52 Encounter for screening for COVID-19 (principal) ==

== ENCOUNTER → 2023-05-08 | Outpatient (CLI) | payer OTHER, MEDICAID ==
[~2023-05-08] MED LIST changes: +TOPI-21 PO; -TOPI-254 PO
== END ==
LOC: M RAD 13:43
PROVIDERS: ATTEND Registered Nurse
DX: R05.1 Acute cough (principal)

== ENCOUNTER → 2023-07-09 | Outpatient (CLI) | payer MEDICAID, OTHER ==
[~2023-07-09] MED LIST changes: -OXYB5TAB11 PO; +OXYB5TAB14 PO
[2023-07-09 11:17] LABS: BASO % 0.8 % (0.0-1.0); EOS # 0.1 10^3/uL (0.0-0.5); EOS % 2.5 % (0.0-3.0); HEMATOCRIT 43.3 % (36.0-47.0); HEMOGLOBIN 14.5 g/dl (12.0-15.5); LYMPH # 0.9 10^3/uL (1.5-5.0); LYMPH % 16.3 % (24.0-44.0); MEAN CORPUSCULAR HEMOGLOBIN 27.3 pg (27.0-33.0); MEAN CORPUSCULAR HGB CONC 33.5 g/dl (32.0-36.5); MEAN CORPUSCULAR VOLUME 81.5 fl (80.0-96.0); MONO # 0.6 10^3/uL (0.0-0.8); MONO % 11.3 % (2.0-8.0); NEUTROPHILS # 3.7 10^3/uL (1.5-8.5); NEUTROPHILS % 68.9 % (36.0-66.0); PLATELET COUNT, AUTOMATED 257 10^3/uL (150-450); RED BLOOD COUNT 5.31 10^6/uL (4.00-5.40); WHITE BLOOD COUNT 5.3 10^3/uL (4.0-10.0)
[2023-07-09 11:31] LABS: HEMOGLOBIN A1c 5.8 % (4.0-6.0)
[2023-07-09 11:34] LABS: ALBUMIN 3.4 G/DL (3.2-5.2); ALKALINE PHOSPHATASE 105 U/L (46-116); ALT/SGPT 37 U/L (7.0-40); AST/SGOT 26 U/L (<34); BILIRUBIN,TOTAL 0.4 MG/DL (0.3-1.2); BLOOD UREA NITROGEN 20 MG/DL (9-23); CARBON DIOXIDE LEVEL 24 MMOL/L (20-31); CHLORIDE LEVEL 105 MMOL/L (98-107); CHOLESTEROL LEVEL 252 MG/DL (<200); CHOLESTEROL RISK RATIO 4.46 (<5); GLOMERULAR FILTRATION RATE > 60.0 (>58); GLUCOSE, FASTING 107 MG/DL (60-100); HDL CHOLESTEROL 56.5 MG/DL (>40); LDL CHOLESTEROL 151.3 MG/DL (<100); NON-HDL-C 195.5 MG/DL; POTASSIUM SERUM 4.1 MMOL/L (3.5-5.1); SODIUM LEVEL 138 MMOL/L (136-145); TOTAL PROTEIN 6.9 G/DL (5.7-8.2); TRIGLYCERIDES LEVEL 221 MG/DL (<150)
== END ==
LOC: M LAB 10:17
PROVIDERS: ATTEND Registered Nurse
DX: E78.2 Mixed hyperlipidemia (principal); I10 Essential (primary) hypertension; Z79.899 Other long term (current) drug therapy

== ENCOUNTER → 2023-07-09 | Outpatient (CLI) | payer MEDICAID, OTHER ==
[2023-07-09 11:18] LABS: BASO % 0.7 % (0.0-1.0); EOS # 0.1 10^3/uL (0.0-0.5); EOS % 2.6 % (0.0-3.0); HEMATOCRIT 42.8 % (36.0-47.0); HEMOGLOBIN 14.4 g/dl (12.0-15.5); LYMPH # 0.9 10^3/uL (1.5-5.0); LYMPH % 16.3 % (24.0-44.0); MEAN CORPUSCULAR HEMOGLOBIN 27.7 pg (27.0-33.0); MEAN CORPUSCULAR HGB CONC 33.6 g/dl (32.0-36.5); MEAN CORPUSCULAR VOLUME 82.3 fl (80.0-96.0); MONO # 0.6 10^3/uL (0.0-0.8); MONO % 10.6 % (2.0-8.0); NEUTROPHILS # 3.8 10^3/uL (1.5-8.5); NEUTROPHILS % 69.4 % (36.0-66.0); PLATELET COUNT, AUTOMATED 265 10^3/uL (150-450); WHITE BLOOD COUNT 5.5 10^3/uL (4.0-10.0)
[2023-07-09 11:34] LABS: ALBUMIN 3.2 G/DL (3.2-5.2); ALKALINE PHOSPHATASE 112 U/L (46-116); ALT/SGPT 39 U/L (7.0-40); AST/SGOT 29 U/L (<34); BILIRUBIN,DIRECT 0.1 MG/DL (<0.4); BILIRUBIN,TOTAL 0.4 MG/DL (0.3-1.2); BLOOD UREA NITROGEN 19 MG/DL (9-23); CALCIUM LEVEL 9.1 MG/DL (8.5-10.1); CARBON DIOXIDE LEVEL 25 MMOL/L (20-31); CHLORIDE LEVEL 105 MMOL/L (98-107); CREATININE FOR GFR 0.65 MG/DL (0.55-1.30); GLOMERULAR FILTRATION RATE > 60.0 (>58); GLUCOSE, FASTING 113 MG/DL (60-100); SODIUM LEVEL 135 MMOL/L (136-145); TOTAL PROTEIN 6.9 G/DL (5.7-8.2)
[2023-07-09 11:37] LABS: FOLATE 7.3 NG/ML (>5.4)
[2023-07-09 11:38] LABS: VITAMIN B12 LEVEL 455 PG/ML (211-911)
[2023-07-11 12:08] LABS: IGASUB2 358.7 mg/dL (73.2-301.2); IGASUB3 51.4 mg/dL (13.4-97.9); IgA SERUM (part of Subclasses) 381 mg/dL (87-352); TISSUE TRANSGLUTAMINASE IgA <2 U/mL (0-3)
== END ==
LOC: M LAB 10:15
PROVIDERS: ATTEND Internal Medicine Gastroenterology
DX: R19.7 Diarrhea, unspecified (principal); E78.2 Mixed hyperlipidemia; I10 Essential (primary) hypertension; Z79.899 Other long term (current) drug therapy

== ENCOUNTER → 2023-09-18 | Outpatient (CLI) | payer OTHER ==
[~2023-09-18] MED LIST changes: -ALBU90AE IH; +ALBU90AE2 IH; +ONDA-282 PO; -ONDA4TAB6 PO
== END ==
LOC: M RAD 15:43
PROVIDERS: ATTEND Physician Assistant
DX: M25.521 Pain in right elbow (principal)

== ENCOUNTER → 2024-02-13 | Outpatient (CLI) | payer OTHER ==
[~2024-02-13] MED LIST changes: +ATOR-398 PO; -LIPI80TA PO
[2024-02-13 08:54] LABS: ALBUMIN 3.2 G/DL (3.2-5.2); ALKALINE PHOSPHATASE 106 U/L (35-104); ALT/SGPT 27 U/L (7.0-40); AST/SGOT 14 U/L (<34); BILIRUBIN,TOTAL 0.3 MG/DL (0.3-1.2); BLOOD UREA NITROGEN 22 MG/DL (9-23); CALCIUM LEVEL 9.3 MG/DL (8.5-10.1); CARBON DIOXIDE LEVEL 27 MMOL/L (20-31); CHLORIDE LEVEL 111 MMOL/L (98-107); CHOLESTEROL LEVEL 228 MG/DL (<200); CHOLESTEROL RISK RATIO 4.57 (<5); CREATININE FOR GFR 0.73 MG/DL (0.55-1.30); GLOMERULAR FILTRATION RATE > 60.0 (>51); GLUCOSE, FASTING 105 MG/DL (60-100); HDL CHOLESTEROL 49.8 MG/DL (>40); LDL CHOLESTEROL 135.6 MG/DL (<100); NON-HDL-C 178.2 MG/DL; POTASSIUM SERUM 3.7 MMOL/L (3.5-5.1); SODIUM LEVEL 144 MMOL/L (136-145); TOTAL PROTEIN 6.8 G/DL (5.7-8.2); TRIGLYCERIDES LEVEL 213 MG/DL (<150)
== END ==
LOC: M LAB 07:24
PROVIDERS: ATTEND Registered Nurse
DX: E78.2 Mixed hyperlipidemia (principal)

== ENCOUNTER 2024-02-17 12:27 | Emergency (ER) | payer OTHER ==
[~2024-02-17] VITALS: Ht 162.6 cm; Wt 106.6 kg
[2024-02-17 12:29] VITALS: BP 172/102; TEMP 96.9; O2SAT 98
== END 2024-02-17 15:32 | disposition left against medical advice (07) ==
LOC: M ED 12:27
DX: Z53.21 Procedure and treatment not carried out due to patient leaving prior to being seen by health care provider (principal)

== ENCOUNTER → 2024-05-14 | Outpatient (CLI) | payer OTHER ==
[~2024-05-14] MED LIST changes: +ADVA1AER10 INH
[2024-05-14 11:56] LABS: BLOOD UREA NITROGEN 14 MG/DL (9-23); GLOMERULAR FILTRATION RATE > 60.0 (>51)
== END ==
LOC: M LAB 10:40
PROVIDERS: ATTEND Family Medicine
DX: R10.31 Right lower quadrant pain (principal)

== ENCOUNTER → 2024-05-14 | Outpatient (CLI) | payer OTHER | LOC: M RAD 10:35 | PROVIDERS: ATTEND Registered Nurse | DX: J20.9 Acute bronchitis, unspecified (principal); R10.31 Right lower quadrant pain ==

== ENCOUNTER → 2024-05-17 | Outpatient (CLI) | payer OTHER ==
[~2024-05-17] MED LIST changes: +ISOVUE-370 76% 100ML VIAL As Ordered ONE
== END ==
LOC: M RAD 13:54
PROVIDERS: ATTEND Registered Nurse
DX: R10.31 Right lower quadrant pain (principal); R16.2 Hepatomegaly with splenomegaly, not elsewhere classified; Z90.49 Acquired absence of other specified parts of digestive tract; K43.9 Ventral hernia without obstruction or gangrene; K76.0 Fatty (change of) liver, not elsewhere classified; K57.90 Diverticulosis of intestine, part unspecified, without perforation or abscess without bleeding
CPT/HCPCS: 74177; Q9967

== ENCOUNTER → 2024-08-13 | Outpatient (CLI) | payer OTHER ==
[~2024-08-13] MED LIST changes: -FLOM0.4C39 PO; -ISOVUE-370 76% 100ML VIAL As Ordered ONE; +TAMS-18 PO; +TOPI-14 PO; -TOPI200T7 PO
[2024-08-13 13:14] LABS: ALBUMIN 3.2 G/DL (3.2-5.2); ALKALINE PHOSPHATASE 114 U/L (35-104); ALT/SGPT 33 U/L (7.0-40); AST/SGOT 18 U/L (<34); BILIRUBIN,TOTAL 0.3 MG/DL (0.3-1.2); BLOOD UREA NITROGEN 14 MG/DL (9-23); CALCIUM LEVEL 9.2 MG/DL (8.5-10.1); CARBON DIOXIDE LEVEL 27 MMOL/L (20-31); CHLORIDE LEVEL 105 MMOL/L (98-107); CHOLESTEROL LEVEL 247 MG/DL (<200); CHOLESTEROL RISK RATIO 4.47 (<5); CREATININE FOR GFR 0.56 MG/DL (0.55-1.30); GLOMERULAR FILTRATION RATE > 90.0 (>51); GLUCOSE, FASTING 165 MG/DL (60-100); HDL CHOLESTEROL 55.2 MG/DL (>40); LDL CHOLESTEROL 164.2 MG/DL (<100); NON-HDL-C 191.8 MG/DL; POTASSIUM SERUM 4.1 MMOL/L (3.5-5.1); SODIUM LEVEL 139 MMOL/L (136-145); TOTAL PROTEIN 7.5 G/DL (5.7-8.2); TRIGLYCERIDES LEVEL 138 MG/DL (<150)
[2024-08-13 13:32] LABS: HEMOGLOBIN A1c 6.2 % (4.0-6.0)
== END ==
LOC: M RAD 11:45
PROVIDERS: ATTEND Nurse Practitioner Family
DX: J20.9 Acute bronchitis, unspecified (principal); I10 Essential (primary) hypertension; E78.2 Mixed hyperlipidemia; R73.03 Prediabetes

== ENCOUNTER → 2024-10-06 | Outpatient (REF) | payer MEDICAID, MEDICARE, OTHER ==
[~2024-10-06] MED LIST changes: +ACET-683 PO; +ALBU8.5H INH; +BREO1INH3 INH; -BREO1INH3 PO; +FLUT15.820; +FLUTISP; +GABA-1172 PO; +LEXA1TAB PO; +METF-1191 PO; +METF-839 PO; +METO1TAB32 PO; +METO1TAB33 PO; +NITR100C3 PO; +OXYB15TA14 PO; +OXYC5CAP56 PO; +PANT-23 PO; +PHEN-372 PO; +TOPI-257 PO; +TOPR25TA PO; +TORS20TA2 PO
== END ==
LOC: EDBD → M LAB REF 15:40
PROVIDERS: ATTEND Registered Nurse
DX: R19.7 Diarrhea, unspecified (principal)

== ENCOUNTER 2024-10-07 11:49 | Emergency (ER) | payer MEDICAID, MEDICARE, OTHER, SELFPAY ==
[~2024-10-07] VITALS: Ht 162.6 cm; Wt 104.1 kg
[~2024-10-07 11:49] MED LIST changes: -ACET-683 PO; -FLUTISP; -NITR100C3 PO; -OXYC5CAP56 PO; -PHEN-372 PO; -TOPI-257 PO
[2024-10-07] MEDS: NS (Normal Saline) 0.9% 1,000 ML IV ONE ×2 (15:28)
[2024-10-07] MEDS: ONDANSETRON 4MG 2ML VIAL IV ONE (15:29)
[2024-10-07] MEDS: PANTOPRAZOLE 40MG VIAL IV ONE (15:29)
[2024-10-07] MEDS: KETOROLAC 30 MG/ML 1 ML VIAL IV ONE (15:30)
[2024-10-07 15:33] LABS: URINE PREG TEST NEGATIVE (NEGATIVE)
[2024-10-07 15:35] LABS: KETONE, URINE AUTO RFX NEGATIVE (NEGATIVE); MUCUS, URINE RFX SMALL (NEGATIVE); NITRITE, URINE AUTO RFX NEGATIVE (NEGATIVE); RBC, URINE AUTO RFX 5 /HPF (0-3); SQUAM EPITHELIAL CELL UR AURFX 12 /HPF (0-6); WBC, URINE AUTO RFX 8 /HPF (0-3)
[2024-10-07 15:38] LABS: BASO # 0.0 10^3/uL (0.0-0.2); BASO % 0.6 % (0.0-1.0); EOS # 0.2 10^3/uL (0.0-0.5); EOS % 3.3 % (0.0-3.0); LYMPH # 2.0 10^3/uL (1.5-5.0); LYMPH % 29.6 % (24.0-44.0); MONO # 0.8 10^3/uL (0.0-0.8); MONO % 11.2 % (2.0-8.0); NEUTROPHILS # 3.7 10^3/uL (1.5-8.5); NEUTROPHILS % 55.2 % (36.0-66.0); PLATELET COUNT, AUTOMATED 373 10^3/uL (150-450)
[2024-10-07 15:40] LABS: LEUKOCYTE ESTERASE UR AUTO RFX 3+ (NEGATIVE)
[2024-10-07] MEDS ORDERED: ISOVUE-370 76% 100 ML VIAL As Ordered ONE (15:42)
[2024-10-07 15:49] LABS: INR 0.95
[2024-10-07] MEDS ORDERED: TOPI-257 PO (15:51)
[2024-10-07] MEDS ORDERED: HOME MED LIST COMPLETE! XX SCH (15:55)
[2024-10-07 15:57] LABS: ALT/SGPT 48.0 U/L (7.0-40); AST/SGOT 44.0 U/L (<34); CALCIUM LEVEL 9.6 MG/DL (8.5-10.1); CARBON DIOXIDE LEVEL 25.0 MMOL/L (20-31); CHLORIDE LEVEL 106.0 MMOL/L (98-107); CREATININE FOR GFR 0.89 MG/DL (0.55-1.30); GLOMERULAR FILTRATION RATE 78.5 (>51); POTASSIUM SERUM 3.2 MMOL/L (3.5-5.1); SODIUM LEVEL 144.0 MMOL/L (136-145)
[2024-10-07] MEDS ORDERED: NITR100C3 PO (20:55)
[2024-10-07] MEDS ORDERED: PHEN-372 PO (20:55)
[2024-10-07] MEDS: PHENAZOPYRIDINE 100 MG TAB PO ONE (21:00)
[2024-10-07] MEDS: NITROFURANTOIN 100 MG CAP PO ONE (21:00)
[2024-10-07 21:01] VITALS: BP 114/56; TEMP 97.4; O2SAT 95
== END 2024-10-07 21:10 | disposition home or self-care (01) ==
LOC: M ED 14:49
DX: N30.00 Acute cystitis without hematuria (principal); R19.7 Diarrhea, unspecified; E11.9 Type 2 diabetes mellitus without complications; F31.9 Bipolar disorder, unspecified; M54.9 Dorsalgia, unspecified; K21.9 Gastro-esophageal reflux disease without esophagitis; Z87.01 Personal history of pneumonia (recurrent); E78.5 Hyperlipidemia, unspecified; J30.2 Other seasonal allergic rhinitis; J30.89 Other allergic rhinitis; Z98.61 Coronary angioplasty status; Z87.440 Personal history of urinary (tract) infections; Z79.84 Long term (current) use of oral hypoglycemic drugs; Z79.899 Other long term (current) drug therapy; Z88.8 Allergy status to other drugs, medicaments and biological substances
CPT/HCPCS: 71046; 74177; 80047; 80048; 80076; 81001; 82150; 83605; 83690; 84703; 85025; 85610; 85730; 87088; 87486; 87581; 87633; 87798; 93005; 96361; 96374; 96375; 99284; J1885; J2405; J2470; Q9967

== ENCOUNTER → 2024-10-08 | Outpatient (REF) | payer OTHER, MEDICAID ==
[~2024-10-08] MED LIST changes: +FLUTISP; +NITR100C3 PO; +PHEN-372 PO; +TOPI-257 PO
== END ==
LOC: M LAB REF 13:45
DX: R19.7 Diarrhea, unspecified (principal)

== ENCOUNTER 2024-10-11 18:21 | Emergency (ER) | payer MEDICAID, MEDICARE, OTHER ==
[~2024-10-11] VITALS: Ht 162.6 cm; Wt 100.0 kg
[~2024-10-11 18:21] MED LIST changes: -FLUTISP
[2024-10-11 20:09] LABS: IONIZED CALCIUM 4.6 MG/DL (4.5-5.3)
[2024-10-11 20:13] LABS: BASO # 0.1 10^3/uL (0.0-0.2); BASO % 0.5 % (0.0-1.0); EOS # 0.2 10^3/uL (0.0-0.5); EOS % 2.3 % (0.0-3.0); LYMPH # 2.2 10^3/uL (1.5-5.0); LYMPH % 24.6 % (24.0-44.0); MONO # 0.9 10^3/uL (0.0-0.8); MONO % 9.7 % (2.0-8.0); NEUTROPHILS # 5.7 10^3/uL (1.5-8.5); NEUTROPHILS % 62.6 % (36.0-66.0); PLATELET COUNT, AUTOMATED 331 10^3/uL (150-450)
[2024-10-11] MEDS: NS (Normal Saline) 0.9% 1,000 ML IV ONE (20:35)
[2024-10-11 20:36] LABS: ETHYL ALCOHOL (ETHANOL) 0.006 % (0.000-0.010)
[2024-10-11 20:38] LABS: ALT/SGPT 33 U/L (7.0-40); AST/SGOT 29 U/L (<34); CALCIUM LEVEL 9.8 MG/DL (8.5-10.1); CARBON DIOXIDE LEVEL 27 MMOL/L (20-31); CHLORIDE LEVEL 104 MMOL/L (98-107); CREATININE FOR GFR 0.88 MG/DL (0.55-1.30); GLOMERULAR FILTRATION RATE 79.5 (>51); MAGNESIUM LEVEL 1.4 MG/DL (1.8-2.4); PHOSPHORUS LEVEL 3.3 MG/DL (2.5-4.9); POTASSIUM SERUM 3.4 MMOL/L (3.5-5.1); SODIUM LEVEL 147 MMOL/L (136-145)
[2024-10-11 20:47] LABS: AMPHETAMINES LEVEL URINE NEGATIVE (NEGATIVE); BARBITURATES URINE NEGATIVE (NEGATIVE); BENZODIAZEPINES URINE NEGATIVE (NEGATIVE); CANNABINOIDS URINE NEGATIVE (NEGATIVE); COCAINE METABOLITE URINE NEGATIVE (NEGATIVE); METHADONE URINE NEGATIVE (NEGATIVE); OPIATES URINE NEGATIVE (NEGATIVE); PHENCYCLIDINE URINE NEGATIVE (NEGATIVE)
[2024-10-11] MEDS ORDERED: FLUTISP (21:32)
[2024-10-11] MEDS ORDERED: HOME MED LIST COMPLETE! XX SCH (21:40)
[2024-10-11] MEDS: MAG SULF 1GM/100ML (MAG RUN) 1 GM in IV 1 EA IV ONE (22:13)
[2024-10-12 01:15] VITALS: BP 126/60; TEMP 99; O2SAT 90
[2024-10-13] MEDS ORDERED: TOPI-14 PO (20:28)
== END 2024-10-12 01:33 | disposition home or self-care (01) ==
LOC: M ED 18:21
DX: F44.5 Conversion disorder with seizures or convulsions (principal); E83.42 Hypomagnesemia; E11.9 Type 2 diabetes mellitus without complications; E78.5 Hyperlipidemia, unspecified; I31.39 Other pericardial effusion (noninflammatory); G43.909 Migraine, unspecified, not intractable, without status migrainosus; J30.89 Other allergic rhinitis; J30.2 Other seasonal allergic rhinitis; Z79.84 Long term (current) use of oral hypoglycemic drugs; Z79.899 Other long term (current) drug therapy; Z88.8 Allergy status to other drugs, medicaments and biological substances
CPT/HCPCS: 80048; 80076; 80307; 82077; 82140; 82330; 83605; 83735; 84100; 85025; 93041; 94760; 96361; 96365; 96366; 96375; 99285; J2060; J3475

== ENCOUNTER 2024-10-13 14:17 | Emergency (ER) | payer MEDICARE ==
[~2024-10-13] VITALS: Ht 162.6 cm; Wt 100.0 kg
[~2024-10-13 14:17] MED LIST changes: +FLUTISP
[2024-10-13 14:32] VITALS: TEMP 98.7
[2024-10-13 14:58] LABS: BASO # 0.0 10^3/uL (0.0-0.2); BASO % 0.4 % (0.0-1.0); EOS # 0.1 10^3/uL (0.0-0.5); EOS % 1.3 % (0.0-3.0); LYMPH # 2.1 10^3/uL (1.5-5.0); LYMPH % 22.0 % (24.0-44.0); MONO # 0.9 10^3/uL (0.0-0.8); MONO % 8.9 % (2.0-8.0); NEUTROPHILS # 6.5 10^3/uL (1.5-8.5); NEUTROPHILS % 67.0 % (36.0-66.0); PLATELET COUNT, AUTOMATED 374 10^3/uL (150-450)
[2024-10-13 15:35] LABS: ALT/SGPT 34.0 U/L (7.0-40); AST/SGOT 33.0 U/L (<34); CALCIUM LEVEL 9.8 MG/DL (8.5-10.1); CARBON DIOXIDE LEVEL 28.0 MMOL/L (20-31); CHLORIDE LEVEL 97.0 MMOL/L (98-107); CREATININE FOR GFR 1.17 MG/DL (0.55-1.30); GLOMERULAR FILTRATION RATE 56.5 (>51); MAGNESIUM LEVEL 1.4 MG/DL (1.8-2.4); PHOSPHORUS LEVEL 3.5 MG/DL (2.5-4.9); POTASSIUM SERUM 3.3 MMOL/L (3.5-5.1); SODIUM LEVEL 141.0 MMOL/L (136-145)
[2024-10-13] MEDS: NS (Normal Saline) 0.9% 1,000 ML IV ONE (16:37)
[2024-10-13] MEDS: MAG SULF 1GM/100ML (MAG RUN) 1 GM in IV 1 EA IV ONE (16:38)
[2024-10-13] MEDS: POTASSIUM CHLORIDE 10MEQ SR TABLET PO ONE (19:51)
[2024-10-13] MEDS ORDERED: TOPI-14 PO (20:28)
[2024-10-13] MEDS ORDERED: HOME MED LIST COMPLETE! XX SCH (20:30)
[2024-10-13 20:45] VITALS: BP 124/78; O2SAT 96
== END 2024-10-13 21:00 | disposition home or self-care (01) ==
LOC: EDBD 14:17 → M ED 14:17
DX: R56.9 Unspecified convulsions (principal); E87.6 Hypokalemia; E83.42 Hypomagnesemia; J45.909 Unspecified asthma, uncomplicated; I10 Essential (primary) hypertension; G43.909 Migraine, unspecified, not intractable, without status migrainosus; K58.9 Irritable bowel syndrome, unspecified; Z79.899 Other long term (current) drug therapy
CPT/HCPCS: 80047; 80048; 80076; 82140; 82330; 83605; 83735; 84100; 85025; 93041; 94760; 96374; 99285; J3475

== ENCOUNTER → 2024-10-19 | Outpatient (CLI) | payer MEDICARE ==
[2024-10-19 14:25] LABS: CALCIUM LEVEL 8.6 MG/DL (8.5-10.1); CARBON DIOXIDE LEVEL 30.0 MMOL/L (20-31); CHLORIDE LEVEL 96.0 MMOL/L (98-107); CREATININE FOR GFR 1.09 MG/DL (0.55-1.30); GLOMERULAR FILTRATION RATE 61.5 (>51); MAGNESIUM LEVEL 1.2 MG/DL (1.8-2.4); POTASSIUM SERUM 3.1 MMOL/L (3.5-5.1); SODIUM LEVEL 140.0 MMOL/L (136-145)
== END ==
LOC: M LAB 13:14
PROVIDERS: ATTEND Family Medicine
DX: E72.20 Disorder of urea cycle metabolism, unspecified (principal); E83.42 Hypomagnesemia

== ENCOUNTER → 2024-10-20 | Outpatient (REF) | payer MEDICARE ==
[~2024-10-20] MED LIST changes: +ACET-683 PO; +OXYC5CAP56 PO
== END ==
LOC: EDBD → M LAB REF 17:09
PROVIDERS: ATTEND Family Medicine
DX: B37.41 Candidal cystitis and urethritis (principal); Z79.899 Other long term (current) drug therapy

== ENCOUNTER 2024-10-23 03:19 | Observation (INO) | payer MEDICARE ==
[~2024-10-23] VITALS: Ht 162.6 cm; Wt 102.7 kg
[~2024-10-23 03:19] MED LIST changes: -ACET-683 PO; -OXYC5CAP56 PO
[2024-10-23] MEDS ORDERED: MOM 30 ML SUSPENSION UDC PO PRN (04:10)
[2024-10-23 08:04] VITALS: BP 126/78; TEMP 98.1; O2SAT 96
[2024-10-23] MEDS: FLUTICASONE PROPIONATE 0.05% NASAL SPRAY 16 GM SCH (09:00)
[2024-10-23] MEDS ORDERED: GLUCAGON INJ 1 MG VIAL SC PRN (09:40)
[2024-10-23] MEDS ORDERED: DEXTROSE 50% 50 ML SYRINGE IV PRN (09:40)
[2024-10-23] MEDS ORDERED: GLUCOSE 4 GM CHEW PO PRN (09:40)
[2024-10-23] MEDS: KCL 20MEQ in NS 1000ML 1,000 ML IV SCH (09:47)
[2024-10-23 09:48] LABS: PLATELET COUNT, AUTOMATED 329 10^3/uL (150-450)
[2024-10-23] MEDS ORDERED: ONDA-282 PO (10:00)
[2024-10-23] MEDS ORDERED: OXYC5CAP56 PO (10:01)
[2024-10-23] MEDS ORDERED: VENTAER INH (10:06)
[2024-10-23] MEDS ORDERED: ACET-683 PO (10:09)
[2024-10-23 10:12] LABS: KETONE, URINE AUTO RFX NEGATIVE (NEGATIVE); LEUKOCYTE ESTERASE UR AUTO RFX NEGATIVE (NEGATIVE); MUCUS, URINE RFX SMALL (NEGATIVE); NITRITE, URINE AUTO RFX NEGATIVE (NEGATIVE); RBC, URINE AUTO RFX 5 /HPF (0-3); SQUAM EPITHELIAL CELL UR AURFX 2 /HPF (0-6); WBC, URINE AUTO RFX 2 /HPF (0-3)
[2024-10-23] MEDS ORDERED: HOME MED LIST COMPLETE! XX SCH (10:15)
[2024-10-23 10:17] LABS: ALT/SGPT 28.0 U/L (7.0-40); AST/SGOT 28.0 U/L (<34); CALCIUM LEVEL 8.6 MG/DL (8.5-10.1); CARBON DIOXIDE LEVEL 27.0 MMOL/L (20-31); CHLORIDE LEVEL 98.0 MMOL/L (98-107); CREATININE FOR GFR 1.67 MG/DL (0.55-1.30); GLOMERULAR FILTRATION RATE 36.9 (>51); POTASSIUM SERUM 3.2 MMOL/L (3.5-5.1); SODIUM LEVEL 140.0 MMOL/L (136-145)
[2024-10-23 10:33] LABS: TOTAL PROTEIN,RANDOM URINE 30.5 MG/DL (0.0-14.0)
[2024-10-23 11:50] LABS: MAGNESIUM LEVEL 2.0 MG/DL (1.8-2.4)
[2024-10-23 12:00] VITALS: BP 124/78; TEMP 97.9; O2SAT 95
[2024-10-23] MEDS: INSULIN LISPRO (NovoLOG) PER UNIT SC SCH ×2 (12:00→21:00)
[2024-10-23] MEDS: POTASSIUM CHLORIDE 10MEQ SR TABLET PO ONE (12:03)
[2024-10-23] MEDS ORDERED: LOPERAMIDE 2 MG CAPLET PO PRN (12:55)
[2024-10-23] MEDS ORDERED: ALBUTEROL 90 MCG/ACT 8 GM HFA INHALER INH PRN (12:55)
[2024-10-23] MEDS ORDERED: ALBUTEROL SULFATE 2.5 MG/0.5 ML INH CONCENTRATE NEB SOLN INH PRN (12:55)
[2024-10-23] MEDS ORDERED: SUMAtriptan SUCCINATE 50MG TABLET PO PRN (12:55)
[2024-10-23] MEDS ORDERED: ACETAMINOPHEN 500 MG TAB PO PRN (12:55)
[2024-10-23] MEDS: ONDANSETRON 4MG ORAL DISINTEGRATING TAB PO PRN (13:58)
[2024-10-23] MEDS: HEPARIN SOD 5000 UNITS/ML 1 ML VIAL/SYRINGE SC SCH (13:58)
[2024-10-23] MEDS: METOPROLOL SUCC. 25 MG *XL* TAB PO SCH (13:59)
[2024-10-23] MEDS: MONTELUKAST 10 MG TAB PO SCH (13:59)
[2024-10-23] MEDS: CETIRIZINE 10 MG TAB PO SCH (13:59)
[2024-10-23] MEDS: oxyBUTYnin *XL* 5 MG TAB PO SCH (13:59)
[2024-10-23] MEDS: ATORVASTATIN 20 MG TAB PO SCH (14:00)
[2024-10-23] MEDS: NS (Normal Saline) 0.9% 1,000 ML IV ONE (15:19)
[2024-10-23] MEDS: GABAPENTIN 300 MG CAP PO SCH (15:27)
[2024-10-23] MEDS: VERAPAMIL 80MG TABLET PO SCH (16:00)
[2024-10-23 19:35] VITALS: BP 122/76; TEMP 97.9; O2SAT 97
[2024-10-23 20:38] VITALS: BP 122/68; TEMP 97.7; O2SAT 99
[2024-10-23] MEDS: TOPIRAMATE 100 MG TAB PO SCH (21:59)
[2024-10-23] MEDS: PANTOPRAZOLE 40MG TAB PO SCH (21:59)
[2024-10-23 22:05] VITALS: BP 92/62
[2024-10-23 22:20] VITALS: BP_SYST 101; BP_SYST 95; BP_SYST 96; BP_DIAS 61; BP_DIAS 62; BP_DIAS 65
[2024-10-23 22:54] LABS: BASO # 0.0 10^3/uL (0.0-0.2); BASO % 0.5 % (0.0-1.0); EOS # 0.1 10^3/uL (0.0-0.5); EOS % 2.0 % (0.0-3.0); LYMPH # 2.2 10^3/uL (1.5-5.0); LYMPH % 38.7 % (24.0-44.0); MONO # 0.7 10^3/uL (0.0-0.8); MONO % 12.4 % (2.0-8.0); NEUTROPHILS # 2.6 10^3/uL (1.5-8.5); NEUTROPHILS % 46.2 % (36.0-66.0); PLATELET COUNT, AUTOMATED 281 10^3/uL (150-450)
[2024-10-23 23:23] LABS: ALT/SGPT 21.0 U/L (7.0-40); AST/SGOT 21.0 U/L (<34); CALCIUM LEVEL 7.7 MG/DL (8.5-10.1); CARBON DIOXIDE LEVEL 28.0 MMOL/L (20-31); CHLORIDE LEVEL 105.0 MMOL/L (98-107); CREATININE FOR GFR 1.39 MG/DL (0.55-1.30); GLOMERULAR FILTRATION RATE 45.9 (>51); MAGNESIUM LEVEL 1.9 MG/DL (1.8-2.4); POTASSIUM SERUM 3.7 MMOL/L (3.5-5.1); SODIUM LEVEL 145.0 MMOL/L (136-145)
[2024-10-24 03:56] VITALS: BP 101/63; TEMP 97.9; O2SAT 93
[2024-10-24 06:10] LABS: CALCIUM LEVEL 7.9 MG/DL (8.5-10.1); CARBON DIOXIDE LEVEL 26.0 MMOL/L (20-31); CHLORIDE LEVEL 107.0 MMOL/L (98-107); CREATININE FOR GFR 1.28 MG/DL (0.55-1.30); GLOMERULAR FILTRATION RATE 50.7 (>51); IRON (FE) 75.0 UG/DL (50-170); MAGNESIUM LEVEL 2.0 MG/DL (1.8-2.4); PERCENT SATURATION 27.1 % (13.2-45.0); PHOSPHORUS LEVEL 3.0 MG/DL (2.5-4.9); POTASSIUM SERUM 3.7 MMOL/L (3.5-5.1); SODIUM LEVEL 145.0 MMOL/L (136-145)
[2024-10-24] MEDS: TOPIRAMATE 100 MG TAB PO SCH ×2 (08:47→20:59)
[2024-10-24] MEDS: POTASSIUM CHLORIDE 10MEQ SR TABLET PO SCH (11:46)
[2024-10-24 12:00] VITALS: BP 102/63; TEMP 97.7; O2SAT 94
[2024-10-24 18:11] LABS: VITAMIN B12 LEVEL 439.0 PG/ML (211-911)
[2024-10-24 20:50] VITALS: BP 91/59; TEMP 97.3; O2SAT 95
[2024-10-24 21:25] VITALS: BP_SYST 103; BP_SYST 96; BP_SYST 98; BP_DIAS 51; BP_DIAS 55; BP_DIAS 59
[2024-10-24 22:10] LABS: CALCIUM LEVEL 8.1 MG/DL (8.5-10.1); CARBON DIOXIDE LEVEL 24.0 MMOL/L (20-31); CHLORIDE LEVEL 108.0 MMOL/L (98-107); CREATININE FOR GFR 1.24 MG/DL (0.55-1.30); GLOMERULAR FILTRATION RATE 52.7 (>51); MAGNESIUM LEVEL 1.8 MG/DL (1.8-2.4); POTASSIUM SERUM 4.0 MMOL/L (3.5-5.1); SODIUM LEVEL 143.0 MMOL/L (136-145)
[2024-10-25 05:15] VITALS: BP 105/69; TEMP 98.6; O2SAT 94
[2024-10-25 06:25] LABS: CALCIUM LEVEL 8.4 MG/DL (8.5-10.1); CARBON DIOXIDE LEVEL 22.0 MMOL/L (20-31); CHLORIDE LEVEL 112.0 MMOL/L (98-107); CREATININE FOR GFR 1.25 MG/DL (0.55-1.30); GLOMERULAR FILTRATION RATE 52.2 (>51); MAGNESIUM LEVEL 1.9 MG/DL (1.8-2.4); POTASSIUM SERUM 4.4 MMOL/L (3.5-5.1); SODIUM LEVEL 146.0 MMOL/L (136-145)
[2024-10-25] MEDS: D5W 1,000 ML IV SCH (09:47)
[2024-10-25 10:30] VITALS: BP 144/74; TEMP 97.7; O2SAT 97
[2024-10-25 12:00] VITALS: BP 120/73; TEMP 97.7; O2SAT 95
[2024-10-25 12:53] LABS: CALCIUM LEVEL 8.2 MG/DL (8.5-10.1); CARBON DIOXIDE LEVEL 24.0 MMOL/L (20-31); CHLORIDE LEVEL 109.0 MMOL/L (98-107); CREATININE FOR GFR 1.05 MG/DL (0.55-1.30); GLOMERULAR FILTRATION RATE 64.3 (>51); POTASSIUM SERUM 4.1 MMOL/L (3.5-5.1); SODIUM LEVEL 143.0 MMOL/L (136-145)
[2024-10-25 21:05] VITALS: BP 121/72; TEMP 98.1; O2SAT 95
[2024-10-26 04:03] VITALS: BP 104/56; TEMP 98.6; O2SAT 96
[2024-10-26 07:04] LABS: CALCIUM LEVEL 8.8 MG/DL (8.5-10.1); CARBON DIOXIDE LEVEL 23.0 MMOL/L (20-31); CHLORIDE LEVEL 111.0 MMOL/L (98-107); CREATININE FOR GFR 1.05 MG/DL (0.55-1.30); GLOMERULAR FILTRATION RATE 64.3 (>51); MAGNESIUM LEVEL 1.8 MG/DL (1.8-2.4); POTASSIUM SERUM 4.4 MMOL/L (3.5-5.1); SODIUM LEVEL 145.0 MMOL/L (136-145)
[2024-10-26 08:06] VITALS: BP 126/65; TEMP 98.7; O2SAT 96
[2024-10-26 08:19] VITALS: BP 126/65
[2024-10-26 12:00] VITALS: BP 102/62; TEMP 97.9; O2SAT 96
[2024-10-26 18:21] LABS: T P ELECTROPHORESIS SO 5.6 g/dL (6.1-8.1)
[2024-10-27 08:52] LABS: COPPER PLASMA 97 mcg/dL (70-175)
[2024-10-28 07:32] LABS: ALBUMIN SPEP 3.0 g/dL (3.8-4.8); ALPHA-1-GLOBULINS SO 0.3 g/dL (0.2-0.3); ALPHA-2-GLOBULINS SO 0.8 g/dL (0.5-0.9); BETA 2 GLOBULIN 0.4 g/dL (0.2-0.5); BETA-GLOBULIN SO 0.4 g/dL (0.4-0.6); GAMMA GLOBULINS SO 0.7 g/dL (0.8-1.7)
[2024-10-31 01:57] LABS: VITAMIN B1 LEVEL WHOLE BLOOD 99 nmol/L (78-185)
== END 2024-10-26 12:06 | disposition home or self-care (01) ==
LOC: M MSPAV 03:19 → EDBD 03:19 → INTOOBSV 03:19 → M MSPAV 03:19 → UNDOADMOB 03:19
PROVIDERS: ADMIT Student in an Organized Health Care Education/Training Program; ATTEND Family Medicine
DX: N17.9 Acute kidney failure, unspecified (principal); E87.6 Hypokalemia; R25.8 Other abnormal involuntary movements; R20.0 Anesthesia of skin; R44.9 Unspecified symptoms and signs involving general sensations and perceptions; E86.9 Volume depletion, unspecified; R11.10 Vomiting, unspecified; R41.3 Other amnesia; I10 Essential (primary) hypertension; E78.5 Hyperlipidemia, unspecified; F41.1 Generalized anxiety disorder; F32.A Depression, unspecified; K58.0 Irritable bowel syndrome with diarrhea; R53.1 Weakness; G43.909 Migraine, unspecified, not intractable, without status migrainosus; Z91.81 History of falling; Z90.79 Acquired absence of other genital organ(s); Z98.51 Tubal ligation status; J30.89 Other allergic rhinitis; J30.1 Allergic rhinitis due to pollen; Z88.8 Allergy status to other drugs, medicaments and biological substances; Z79.899 Other long term (current) drug therapy; Z79.84 Long term (current) use of oral hypoglycemic drugs
CPT/HCPCS: 36415; 76775; 80048; 80053; 80069; 80076; 81001; 82525; 82607; 82728; 83550; 83605; 83735; 84146; 84155; 84156; 84165; 84425; 85025; 85027; 87486; 87507; 87581; 87633; 87798; 96361; 96372; 96374; 96375; 96376; G0378; J1815; J2060

== ENCOUNTER 2024-10-29 19:50 | Emergency (ER) | payer MEDICARE ==
[~2024-10-29] VITALS: Ht 154.9 cm; Wt 108.1 kg
[~2024-10-29 19:50] MED LIST changes: +ACET-683 PO; +OXYC5CAP56 PO
[2024-10-29] MEDS: levETIRAcetam INJection 1,500 MG in IV 1 EA IV ONE (21:15)
[2024-10-29 21:23] LABS: VENOUS BASE EXCESS -6.9 (-2.0-2.0); VENOUS HCO3 18.5 MMOL/L (23.0-27.0); VENOUS O2 SATURATION 95.3 % (60.0-80.0); VENOUS PARTIAL PRESSURE CO2 37.0 mmHg (38.0-50.0); VENOUS PARTIAL PRESSURE O2 84.8 mmHg (30.0-50.0); VENOUS PH 7.318 UNITS (7.330-7.430); VENOUS STANDARD HCO3 18.8 MMOL/L; VENOUS TOTAL CO2 19.7 MMOL/L (24.0-28.0)
[2024-10-29 21:34] LABS: BASO # 0.0 10^3/uL (0.0-0.2); BASO % 0.7 % (0.0-1.0); EOS # 0.2 10^3/uL (0.0-0.5); EOS % 2.9 % (0.0-3.0); LYMPH # 2.1 10^3/uL (1.5-5.0); LYMPH % 34.7 % (24.0-44.0); MONO # 0.7 10^3/uL (0.0-0.8); MONO % 11.2 % (2.0-8.0); NEUTROPHILS # 3.1 10^3/uL (1.5-8.5); NEUTROPHILS % 50.3 % (36.0-66.0); PLATELET COUNT, AUTOMATED 264 10^3/uL (150-450)
[2024-10-29 21:35] LABS: APPEARANCE, URINE HAZY (CLEAR); BACTERIA, URINE AUTO NEGATIVE (NEGATIVE); BILIRUBIN, URINE AUTO NEGATIVE (NEGATIVE); BLOOD, URINE BLOOD NEGATIVE (NEGATIVE); GLUCOSE, URINE (UA) AUTO NEGATIVE (NEGATIVE); KETONE, URINE AUTO NEGATIVE (NEGATIVE); LEUKOCYTE ESTERASE, URINE AUTO TRACE (NEGATIVE); MUCUS, URINE SMALL (NEGATIVE); NITRITE, URINE AUTO NEGATIVE (NEGATIVE); PROTEIN, URINE AUTO NEGATIVE (NEGATIVE); RBC, URINE AUTO 0 /HPF (0-3); SPECIFIC GRAVITY URINE AUTO 1.020 (1.002-1.035); SQUAMOUS EPITHELIAL CELL UR AU 1 /HPF (0-6); UROBILINOGEN, URINE AUTO 0.2 mg/dL (0.0-2.0); WBC, URINE AUTO 6 /HPF (0-3)
[2024-10-29 21:52] LABS: AMPHETAMINES LEVEL URINE NEGATIVE (NEGATIVE)
[2024-10-29 21:53] LABS: BARBITURATES URINE NEGATIVE (NEGATIVE); BENZODIAZEPINES URINE POSITIVE (NEGATIVE); CANNABINOIDS URINE NEGATIVE (NEGATIVE); COCAINE METABOLITE URINE NEGATIVE (NEGATIVE); METHADONE URINE NEGATIVE (NEGATIVE); OPIATES URINE NEGATIVE (NEGATIVE); PHENCYCLIDINE URINE NEGATIVE (NEGATIVE)
[2024-10-29 21:55] LABS: ALT/SGPT 66 U/L (7.0-40); AST/SGOT 45 U/L (<34); CALCIUM LEVEL 8.5 MG/DL (8.5-10.1); CARBON DIOXIDE LEVEL 22 MMOL/L (20-31); CHLORIDE LEVEL 108 MMOL/L (98-107); CREATININE FOR GFR 1.01 MG/DL (0.55-1.30); GLOMERULAR FILTRATION RATE 67.4 (>51); MAGNESIUM LEVEL 1.7 MG/DL (1.8-2.4); PHOSPHORUS LEVEL 3.4 MG/DL (2.5-4.9); POTASSIUM SERUM 3.1 MMOL/L (3.5-5.1); SODIUM LEVEL 145 MMOL/L (136-145)
[2024-10-29] MEDS: MAG SULF 1GM/100ML (MAG RUN) 1 GM in IV 1 EA IV ONE (23:33)
[2024-10-30 01:05] VITALS: TEMP 98
[2024-10-30 02:49] LABS: ABG BASE EXCESS -5.9 (-2.0-2.0); ABG HCO3 18.6 MMOL/L (22.0-26.0); ABG O2 SATURATION 98.7 % (95.0-99.0); ABG PARTIAL PRESSURE CO2 33.6 mmHg (35.0-45.0); ABG PARTIAL PRESSURE O2 139.9 mmHg (75.0-100.0); ABG STANDARD HCO3 19.6 MMOL/L. (22.0-26.0); ABG TOTAL CO2 19.6 MMOL/L (22.0-29.0); ABG pH (ARTERIAL) 7.361 UNITS (7.350-7.450)
[2024-10-30 04:45] VITALS: BP 112/67
[2024-10-30] MEDS: POTASSIUM CHLORIDE 10% LIQ 20MEQ/15ML UDC PO ONE (04:56)
[2024-10-30 05:05] VITALS: O2SAT 85
== END 2024-10-30 05:12 | disposition home or self-care (01) ==
LOC: EDBD 19:50 → M ED 19:50
DX: R56.9 Unspecified convulsions (principal); E87.6 Hypokalemia; E83.42 Hypomagnesemia; J30.89 Other allergic rhinitis; Z79.899 Other long term (current) drug therapy; Z88.8 Allergy status to other drugs, medicaments and biological substances
CPT/HCPCS: 36600; 70450; 71045; 80048; 80076; 80307; 81001; 82140; 82330; 82803; 83605; 83735; 84100; 85025; 87486; 87581; 87633; 87798; 93041; 94760; 96365; 96366; 96367; 96375; 99285; J1953; J2060; J3475

== ENCOUNTER → 2024-12-15 | Outpatient (REF) ==
[~2024-12-15] MED LIST changes: -IBUP-1022 PO; +IBUP600T42 PO
== END ==
LOC: M PLAIMG 10:28
PROVIDERS: ATTEND Internal Medicine
DX: M54.50 Low back pain, unspecified (principal)

== ENCOUNTER → 2025-02-11 | Outpatient (CLI) | payer MEDICARE ==
[~2025-02-11] MED LIST changes: +BENZ200C70 PO; +POTA-151 PO
[2025-02-11 14:04] LABS: BASO # 0.1 10^3/uL (0.0-0.2); BASO % 0.9 % (0.0-1.0); EOS # 0.2 10^3/uL (0.0-0.5); EOS % 2.6 % (0.0-3.0); LYMPH # 2.1 10^3/uL (1.5-5.0); LYMPH % 36.2 % (24.0-44.0); MONO # 0.5 10^3/uL (0.0-0.8); MONO % 8.5 % (2.0-8.0); NEUTROPHILS # 3.0 10^3/uL (1.5-8.5); NEUTROPHILS % 51.6 % (36.0-66.0); PLATELET COUNT, AUTOMATED 341 10^3/uL (150-450)
[2025-02-11 14:25] LABS: ESTIMATED AVERAGE GLUCOSE 148.0 MG/DL (60-110)
[2025-02-11 15:50] LABS: ALT/SGPT 35.0 U/L (7.0-40); AST/SGOT 25.0 U/L (<34); CALCIUM LEVEL 9.2 MG/DL (8.5-10.1); CARBON DIOXIDE LEVEL 29.0 MMOL/L (20-31); CHLORIDE LEVEL 106.0 MMOL/L (98-107); CHOLESTEROL LEVEL 208.0 MG/DL (<200); CHOLESTEROL RISK RATIO 4.96 (<5); CREATININE FOR GFR 0.89 MG/DL (0.55-1.30); GLOMERULAR FILTRATION RATE 78.5 (>51); LDL CHOLESTEROL 113.9 MG/DL (<100); MAGNESIUM LEVEL 1.9 MG/DL (1.8-2.4); NON-HDL-C 166.1 MG/DL; POTASSIUM SERUM 3.4 MMOL/L (3.5-5.1); SODIUM LEVEL 143.0 MMOL/L (136-145); TRIGLYCERIDES LEVEL 261.0 MG/DL (<150)
[2025-02-11 15:51] LABS: VITAMIN B12 LEVEL 424.0 PG/ML (211-911)
== END ==
LOC: M LAB 13:13
PROVIDERS: ATTEND Registered Nurse
DX: R73.03 Prediabetes (principal); E78.2 Mixed hyperlipidemia; G40.89 Other seizures

== ENCOUNTER → 2025-02-11 | Outpatient (CLI) | payer MEDICARE ==
[2025-02-11 14:04] LABS: BASO # 0.0 10^3/uL (0.0-0.2); BASO % 0.7 % (0.0-1.0); EOS # 0.2 10^3/uL (0.0-0.5); EOS % 3.2 % (0.0-3.0); LYMPH # 2.1 10^3/uL (1.5-5.0); LYMPH % 34.3 % (24.0-44.0); MONO # 0.5 10^3/uL (0.0-0.8); MONO % 9.0 % (2.0-8.0); NEUTROPHILS # 3.2 10^3/uL (1.5-8.5); NEUTROPHILS % 52.5 % (36.0-66.0); PLATELET COUNT, AUTOMATED 327 10^3/uL (150-450)
[2025-02-11 14:34] LABS: ALT/SGPT 35.0 U/L (7.0-40); AST/SGOT 25.0 U/L (<34); CALCIUM LEVEL 9.2 MG/DL (8.5-10.1); CARBON DIOXIDE LEVEL 30.0 MMOL/L (20-31); CHLORIDE LEVEL 107.0 MMOL/L (98-107); CREATININE FOR GFR 0.88 MG/DL (0.55-1.30); GLOMERULAR FILTRATION RATE 79.5 (>51); POTASSIUM SERUM 3.5 MMOL/L (3.5-5.1); SODIUM LEVEL 144.0 MMOL/L (136-145)
[2025-02-11 14:37] LABS: VITAMIN B12 LEVEL 455.0 PG/ML (211-911)
[2025-02-12 12:42] LABS: T P ELECTROPHORESIS SO 7.0 g/dL (6.1-8.1)
[2025-02-14 10:52] LABS: VITAMIN E(ALPHA TOCOPHEROL) 13.6 mg/L (5.7-19.9); VITAMIN E(GAMMA TOCOPHEROL) 1.8 mg/L (<=4.3)
[2025-02-15 09:31] LABS: ALBUMIN SPEP 3.5 g/dL (3.8-4.8); ALPHA-1-GLOBULINS SO 0.3 g/dL (0.2-0.3); ALPHA-2-GLOBULINS SO 0.9 g/dL (0.5-0.9); BETA 2 GLOBULIN 0.5 g/dL (0.2-0.5); BETA-GLOBULIN SO 0.5 g/dL (0.4-0.6); GAMMA GLOBULINS SO 1.3 g/dL (0.8-1.7)
[2025-02-16 08:42] LABS: VITAMIN B6,PYRIDOXAL PHOSPHATE 3.4 ng/mL (2.1-21.7)
[2025-02-16 15:02] LABS: VITAMIN B1 LEVEL WHOLE BLOOD 112 nmol/L (78-185)
== END ==
LOC: M LAB 13:08
PROVIDERS: ATTEND Psychiatry & Neurology Neurology
DX: R51.9 Headache, unspecified (principal); R55 Syncope and collapse; G62.9 Polyneuropathy, unspecified; E53.8 Deficiency of other specified B group vitamins; E51.9 Thiamine deficiency, unspecified; E53.1 Pyridoxine deficiency; E56.0 Deficiency of vitamin E; R73.03 Prediabetes; E78.2 Mixed hyperlipidemia; G40.89 Other seizures

== ENCOUNTER 2025-02-16 23:22 | Emergency (ER) | payer MEDICARE, SELFPAY ==
[~2025-02-16 23:22] MED LIST changes: -BENZ200C70 PO; -POTA-151 PO
[2025-02-17] MEDS: NS (Normal Saline) 0.9% 1,000 ML IV ONE (00:11)
[2025-02-17] MEDS: IPRATROPIUM 0.5 MG/ALBUTEROL 2.5 MG INH SOL UD 3 ML NEB ONE (00:13)
[2025-02-17] MEDS: ONDANSETRON 4MG/2ML VIAL IV ONE (00:13)
[2025-02-17] MEDS: ACETAMINOPHEN 325 MG TAB PO ONE (00:13)
[2025-02-17 00:22] LABS: BASO # 0.0 10^3/uL (0.0-0.2); BASO % 0.3 % (0.0-1.0); EOS # 0.1 10^3/uL (0.0-0.5); EOS % 0.6 % (0.0-3.0); LYMPH # 0.9 10^3/uL (1.5-5.0); LYMPH % 9.2 % (24.0-44.0); MONO # 0.7 10^3/uL (0.0-0.8); MONO % 7.0 % (2.0-8.0); NEUTROPHILS # 8.1 10^3/uL (1.5-8.5); NEUTROPHILS % 82.6 % (36.0-66.0); PLATELET COUNT, AUTOMATED 271 10^3/uL (150-450)
[2025-02-17 01:06] LABS: CPK CREATINE PHOSPHOKINASE 52 U/L (34-145)
[2025-02-17 01:30] VITALS: BP 128/59; TEMP 98.5; O2SAT 95
[2025-02-17 01:32] LABS: CALCIUM LEVEL 8.1 MG/DL (8.5-10.1); CARBON DIOXIDE LEVEL 24 MMOL/L (20-31); CHLORIDE LEVEL 105 MMOL/L (98-107); CK-MB VALUE MASS < 1.0 NG/ML (<3.6); CREATININE FOR GFR 0.91 MG/DL (0.55-1.30); GLOMERULAR FILTRATION RATE 76.4 (>51); POTASSIUM SERUM 3.0 MMOL/L (3.5-5.1); SODIUM LEVEL 141 MMOL/L (136-145)
[2025-02-17] MEDS ORDERED: BENZ200C70 PO (01:32)
[2025-02-17] MEDS ORDERED: POTA-151 PO (01:36)
[2025-02-17] MEDS: POTASSIUM CHLORIDE 10MEQ SR TABLET PO ONE (01:39)
== END 2025-02-17 01:42 | disposition home or self-care (01) ==
LOC: M ED 23:22
DX: J06.9 Acute upper respiratory infection, unspecified (principal); B97.89 Other viral agents as the cause of diseases classified elsewhere; E87.6 Hypokalemia; E11.9 Type 2 diabetes mellitus without complications; E78.5 Hyperlipidemia, unspecified; I10 Essential (primary) hypertension; J45.909 Unspecified asthma, uncomplicated; Z79.899 Other long term (current) drug therapy; Z88.8 Allergy status to other drugs, medicaments and biological substances
CPT/HCPCS: 71045; 80048; 82550; 82553; 83605; 84145; 84484; 85025; 87486; 87581; 87633; 87798; 93005; 96361; 96374; 99284; J2405